=== PATIENT | female | born 1955 | race Caucasian/White ===

== ENCOUNTER 2020-08-17 11:12 | Outpatient (CLI) | payer MEDICARE, SELFPAY ==
--- NOTE | ~2020-08-17 | CT_ITS ---
EXAMINATION: CT abdomen pelvis w con EXAM DATE: 08/17/2020 12:09 INDICATION: Mid to low abdominal pain for 5 days. Constipation. TECHNIQUE: Spiral CT of the abdomen and pelvis was performed following intravenous injection of 100 m L Omnipaque 350. Axial, coronal and sagittal images of the abdomen and pelvis were reviewed. The do se-length product (DLP) for this examination was 1143.61 mGy-cm. The exposure was tailored according to patient size (auto mA exposure control), and iterative reconstruction (ASIR) was used as addition al dose reduction technique. There is no prior study for comparison. FINDINGS: The liver, spleen, adrenal glands and pancreas are unremarkable. Gallbladder is unremarkab le. No biliary obstruction. Portal and splenic veins are patent. Kidneys enhance symmetrically. T here is no hydronephrosis. The uterus is not identified and has likely been surgically resected. D ense metallic artifact obscuring the bladder, from patient's hip replacements. There is no retroperi toneal or pelvic lymphadenopathy. There is mild scattered arteriosclerotic disease. There are no findings to suggest appendicitis. The stomach and small bowel are unremarkable. Modera te amount of ascending and transverse colonic stool, small amount in the other segments. No free in traperitoneal gas. The heart is normal in size. There are no pericardial or pleural effusions. Th e lung bases are unremarkable. There are no osteoblastic or osteolytic lesions identified. Spine sti mulator device, leads at the T9 level. Mild thoracolumbar levoscoliosis. IMPRESSION: 1. Moderate ascending and transverse colonic stool. 2. No acute findings. Reviewed, dictated and finalized at location A.
[2020-08-17 11:37] LABS: Basophils Absolute Auto 0.04 K/mm3 (0.00-0.10); Basophils Percent Auto 0.5 % (0.0-1.0); Eosinophils Absolute Auto 0.06 K/mm3 (0.02-0.50); Eosinophils Percent Auto 0.7 % (1.0-6.0); Hematocrit 42.7 % (35.0-42.0); Hemoglobin 13.4 g/dL (11.7-13.8); Immature Granulocyte Absolute 0.06 K/mm3 (0.00-0.00); Immature Granulocyte Percent A 0.7 % (0.0-0.0); Lymphocytes Absolute Auto 1.84 K/mm3 (1.10-4.50); Lymphocytes Percent Auto 21.9 % (18.0-42.0); Mean Corpuscular HGB Conc 31.4 g/dL (32.0-36.0); Mean Corpuscular Hemoglobin 30.5 pg (27.0-31.0); Mean Corpuscular Volume 97.3 fL (78.0-102.0); Mean Platelet Volume 9.5 fl (9.2-11.8); Monocytes Absolute Auto 0.59 K/mm3 (0.10-0.90); Neutrophils Absolute Auto 5.8 K/mm3 (1.7-7.2); Neutrophils Percent Auto 69.2 % (50.0-70.0); Platelet Count Result 207 K/mm3 (150-420); Red Blood Count 4.39 M/mm3 (4.20-5.40); Red Cell Distribution Width 13.6 % (11.6-14.4); White Blood Count 8.4 K/mm3 (4.8-10.8)
[2020-08-17 11:38] LABS: Add Urine Microscopic? YES; Appearance Urine Clear (Clear); Bilirubin Urine Negative (Negative); Blood Urine Negative (Negative); Color Urine Yellow (Yellow); Glucose Urine UA Negative (Negative); Ketones Urine Negative (Negative); Leukocyte Esterase Ur Trace (Negative); Nitrate Urine Negative (Negative); Protein Urine Negative (Negative); Urobilinogen Urine 0.2 mg/dL (0.2-1.0); pH Urine 6.5 (5.0-8.0)
[2020-08-17 11:45] LABS: Bacteria Urine Trace /hpf; RBC Urine 0-2 /hpf (0-2); Squamous Epithelial Cell Urine Moderate /hpf (Few); WBC Urine 0-3 /hpf (0-3)
[2020-08-17 11:49] LABS: Alanine Aminotransferase 34 U/L (14-59); Albumin Level 3.8 g/dL (3.4-5.0); Alkaline Phosphatase 75 U/L (46-116); Amylase 91 U/L (25-115); Anion Gap 10 mmol/L (8-16); Aspartate Amino Transferase 17 U/L (15-37); Bilirubin,Total 0.3 mg/dL (0.00-1.00); Blood Urea Nitrogen 27 mg/dL (7-18); Calcium 9.1 mg/dL (8.5-10.1); Carbon Dioxide 28 mmol/L (21-32); Chloride 103 mmol/L (98-108); Estimated Glomerular Filt Rate 42; Glucose 93 mg/dL (70-99); Lipase 130 U/L (73-393); Osmolality Calculated 297 mOsm/kg (285-295); Sodium 141 mmol/L (136-145); Total Protein 7.3 g/dL (6.4-8.2)
== END 2020-08-17 11:13 | disposition home or self-care (01) ==
PROVIDERS: PCP Internal Medicine; Visit Provider Internal Medicine
DX: R10.9 Unspecified abdominal pain (principal)
CPT/HCPCS: 36415; 74177; 80053; 81001; 82150; 83690; 85025; Q9967

== ENCOUNTER 2022-01-30 09:38 | Outpatient (CLI) | payer MEDICARE, SELFPAY ==
--- NOTE | ~2022-01-30 | DEXA_ITS ---
Bone Density Report Name: LUDA HAMEED Age: 67 Sex: Female Ethnicity: White Date of : 1955 Indication: postmenopausal; screening for osteoporosis; height loss; prior fracture; hysterectomy; Referring Provider: VIVEK BARKER Study: Bone densitometry was performed. Exam Date: January 30, 2022 Accession number: [id number] Bone Density: Region BMD T-score Z-score Classification AP Spine(L1, L2, L3) 1.285 2.4 4.4 Normal World Health Organization criteria for BMD impression classify patients as: Normal (T-score at or above -1.0), Osteopenia (T-score between -1.0 and -2.5), or Osteoporosis (T-score at or below -2.5). Clinical Information Provided by Patient: Have had a previous hip or vertebral fracture Has had a low trauma fracture Has the following medical conditions: Hysterectomy Patient maximum height was 63 Menopause Age: 28 No regular weight bearing exercise Drinks caffeinated beverages Onset of menses at age 12 Number of children 1 Impression: The patient has normal bone mass. The patient has risk factors, including: previous fracture. Discussion: INCREASED RISK OF FRACTURE DUE TO HISTORY OF FRACTURE. The patient's previous fracture puts the patient at high risk of a future fracture. In untreated patients, the risk of osteoporotic fracture increases approximately two-fold for each 1.0 SD decrease in T-score. Low bone density is not the only risk factor for fracture; also consider factors such as patient's age, frailty or poor health, risk of falling, risk of injury, previous osteoporotic fracture, family history of osteoporosis, cigarette smoking, low body weight, etc. Not everyone with a low trauma fracture has osteoporosis; osteomalacia and other metabolic bone disorders should also be considered. Patients who have osteoporosis should be evaluated for specific diseases and conditions (secondary causes) that may cause or contribute to bone loss and fracture risk. National Osteoporosis Foundation (NOF) recommends pharmacologic intervention for patients with a prior hip or vertebral fracture regardless of BMD T-score. The patient should follow a healthful lifestyle (good nutrition with adequate calcium and vitamin D, and appropriate weight-bearing exercise). Follow-Up: Consider a repeat BMD and Vertebral Fracture Assessment (VFA) exam in 2 years or sooner if medically necessary, to reassess this patient's status. Reported by: Dr. Isaac Galaviz on 01/30/2022 10:05:00 AM. Reviewed, dictated and finalized at location AAlexandra CARTER
== END 2022-01-30 09:39 | disposition home or self-care (01) ==
LOC: CHSIMG 09:40
PROVIDERS: PCP Internal Medicine; Visit Provider Internal Medicine
DX: M81.0 Age-related osteoporosis without current pathological fracture (principal)
CPT/HCPCS: 77080

== ENCOUNTER 2022-05-08 10:11 | Emergency (ER) | payer MEDICARE, SELFPAY ==
--- NOTE | ~2022-05-08 | CT_ITS ---
CT Abdomen and Pelvis with contrast. History: Abdominal pain. Spiral CT of the abdomen and pelvis was performed after the administration of intravenous contrast. 1 00 cc of Omnipaque 350 was administered intravenously without complication. Dose reduction technique was used on this scan by utilizing automated exposure control and iterative reconstruction technique. The dose-length product (DLP) was 1256.10 mGy-cm. COMPARISON: 08/17/2020 Findings: Scans through the lung bases demonstrate mild atelectatic change. The liver, spleen, pancreas, gallbladder, adrenals and kidneys are within normal limits. No evidence of aortic aneurysm. No lymphadenopathy is seen. There is no evidence of bowel obstruction. There is no evidence to suggest acute appendicitis or dive rticulitis. Images through the pelvis are degraded by streak artifact from bilateral hip arthroplasties. Urinary bladder unremarkable. No pelvic mass identified. No ascites is seen. Impression: No significant abnormalities seen. Reviewed, dictated and finalized at [facility]. [employer] Impression: No significant abnormalities seen.
[2022-05-08 12:15] VITALS: BP 157/85; PULSE 80; RESP 18; TEMP 36.6; O2SAT 94
--- NOTE | 2022-05-08 12:41 | ED.ABDPAIN ---
HPI - Abdominal Pain General Chief Complaint: Nausea/Vomiting/Diarrhea Stated Complaint: STOMACH CRAMPS BLOODY STOOL Time Seen by Provider: 05/08/22 12:37 Source: patient Mode of arrival: ambulatory Limitations: no limitations History of Present Illness HPI narrative: 67 year old female presents to the Emergency Department complaining of lower abdominal pain and cramping. Onset 05/05/22. Has had diarrhea intermittently. Denies vomiting. Urinating normal amount. Now having discomfort with urination. No known fever. No history of same. MD elicited complaint: abdominal pain Pertinent past history: none Onset (ago): day(s) (05/05/22) Pain Consistency: intermittent Location: suprapubic Severity: moderate Quality: cramping Radiation: none Exacerbating factors: bowel movement (diarrhea) Relieving factors: nothing Context: denies foreign travel, denies possible food poisoning, denies sick contacts, denies recent antibiotic use, denies recent surgery/procedure, denies recent injury or denies history of similar episodes Associated symptoms: denies other symptoms, nausea, vomiting, fever, chills and dysuria Related Data Patient : No Home Medications Medication Instructions Recorded Confirmed duloxetine 20 mg capsule,delayed 20 mg PO DAILY 05/08/22 05/08/22 release gabapentin 300 mg capsule 900 mg PO TID 05/08/22 05/08/22 levothyroxine 112 mcg tablet 112 mcg PO DAILY 05/08/22 05/08/22 nortriptyline 75 mg capsule 75 mg PO HS 05/08/22 05/08/22 sumatriptan succinate 100 mg tablet 100 mg PO DAILY PRN Headache 05/08/22 05/08/22 verapamil 120 mg tablet,extended 120 mg PO BID 05/08/22 05/08/22 release Allergies Allergy/AdvReac Type Severity Reaction Status Date / Time No Known Allergies Allergy Unverified 06/12/15 09:49 Review of Systems Review of Systems: All systems reviewed & are unremarkable except as noted in HPI and below Constitutional: Constitutional: Reports as per HPI, Reports no additional constitutional complaints, Denies chills, Reports fatigue, Denies fever(s) and Reports weakness Eyes: Eyes: Reports as per HPI and Reports no additional eye complaints ENT: Reports system reviewed and no additional complaints, except as documented, Denies nasal congestion and Denies sore throat Cardiovascular: Cardiovascular: Reports as per HPI, Reports no additional cardiovascular complaints and Denies chest pain Respiratory: Respiratory: Reports as per HPI, Reports no additional respiratory complaints, Denies chest congestion, Denies cough and Denies dyspnea Gastrointestinal: Gastrointestinal: Reports as per HPI, Reports no additional gastrointestinal complaints, Reports bloating and Reports diarrhea Genitourinary: Genitourinary: Reports no additional female genitourinary complaints, Reports as per HPI and Reports dysuria Musculoskeletal: Musculoskeletal: Reports no additional musculoskeletal complaints, Reports as per HPI and Denies joint swelling Integumentary/Breasts: Skin/Breast: Reports system reviewed and no additional complaints, except as docu and Reports as per HPI Neurologic: Reports system reviewed and no additional complaints, except as documented and Reports as per HPI Psychiatric: Psychiatric: Reports no additional psychiatric complaints and Reports as per HPI Endocrine: Endocrine: Reports no additional endocrine complaints and Reports as per HPI Hematologic/Lymphatic: Hematologic/Lymphatic: Reports no additional hematologic/lymphatic complaints and Reports as per HPI Allergic/Immunologic: Allergic/Immunologic: Reports no additional allergic/immunologic complaints and Reports as per HPI Exam Const: General: no acute distress and alert Nutritional Appearance: well nourished Orientation/consciousness: patient oriented x3 Limitations: no limitations HENMT: Head: normal to inspection Ears: external ears normal Face/Nose/Sinus: Normal external nose present Face and sinus: normal facial exam Mouth: Y
[2022-05-08 13:03] LABS: Basophils Absolute Auto 0.04 K/mm3 (0.00-0.10); Basophils Percent Auto 0.6 % (0.0-1.0); Eosinophils Absolute Auto 0.08 K/mm3 (0.02-0.50); Eosinophils Percent Auto 1.1 % (1.0-6.0); Hematocrit 42.4 % (35.0-42.0); Hemoglobin 13.6 g/dL (11.7-13.8); Immature Granulocyte Absolute 0.05 K/mm3 (0.00-0.00); Immature Granulocyte Percent A 0.7 % (0.0-0.0); Lymphocytes Absolute Auto 1.39 K/mm3 (1.10-4.50); Lymphocytes Percent Auto 19.9 % (18.0-42.0); Mean Corpuscular HGB Conc 32.1 g/dL (32.0-36.0); Mean Corpuscular Hemoglobin 30.8 pg (27.0-31.0); Mean Corpuscular Volume 95.9 fL (78.0-102.0); Mean Platelet Volume 9.3 fl (9.2-11.8); Monocytes Absolute Auto 0.68 K/mm3 (0.10-0.90); Monocytes Percent Auto 9.7 % (2.0-11.0); Neutrophils Absolute Auto 4.7 K/mm3 (1.7-7.2); Platelet Count Result 213 K/mm3 (150-420); Red Blood Count 4.42 M/mm3 (4.20-5.40)
[2022-05-08 13:04] LABS: Add Urine Microscopic? YES; Appearance Urine Clear (Clear); Bilirubin Urine Negative (Negative); Blood Urine Trace-Intact (Negative); Color Urine Light Yellow (Yellow); Glucose Urine UA Negative (Negative); Ketones Urine Negative (Negative); Leukocyte Esterase Ur 1+ (Negative); Nitrate Urine Negative (Negative); Protein Urine Negative (Negative); Urobilinogen Urine 0.2 mg/dL (0.2-1.0); pH Urine 5.5 (5.0-8.0)
[2022-05-08] MEDS: SODIUM CHLORIDE 0.9% IV 1,000 ML 999 ML IV CONT (13:17)
[2022-05-08 13:20] LABS: Alanine Aminotransferase 23 U/L (14-59); Albumin Level 3.5 g/dL (3.4-5.0); Alkaline Phosphatase 75 U/L (46-116); Anion Gap 7 mmol/L (8-16); Aspartate Amino Transferase 16 U/L (15-37); Bilirubin,Total 0.3 mg/dL (0.00-1.00); Blood Urea Nitrogen 24 mg/dL (7-18); Calcium 8.8 mg/dL (8.5-10.1); Carbon Dioxide 27 mmol/L (21-32); Chloride 108 mmol/L (98-108); Estimated CRCL calculation 36 ml/min; Estimated Glomerular Filt Rate 36; Glucose 104 mg/dL (70-99); Osmolality Calculated 298 mOsm/kg (285-295); Sodium 142 mmol/L (136-145); Total Protein 6.9 g/dL (6.4-8.2)
[2022-05-08 13:23] LABS: Lactic Acid Reflex 0.8 mmol/L (0.4-2.0)
[2022-05-08 13:28] LABS: Bacteria Urine Trace /hpf; RBC Urine None seen /hpf (0-2); Squamous Epithelial Cell Urine Few /hpf (Few); WBC Urine 0-3 /hpf (0-3)
[2022-05-08 13:40] LABS: Influenza A QL RT-PCR Negative (Negative); Influenza B QL RT-PCR Negative (Negative); SARS-CoV-2 RNA PCR Negative (Negative)
[2022-05-08 13:41] LABS: RSV RNA, RT-PCR Negative (Negative)
[2022-05-08 14:30] VITALS: BP 131/73; PULSE 60; RESP 16; O2SAT 95
[2022-05-08] MEDS: HYDROcodone/acetaminophen (*CRX) 10-325 MG TABLET 1 TAB PO (14:39)
[2022-05-08] MEDS: NITROFURANTOIN MONOHYD MACROCR 100 MG CAP (14:40)
== END 2022-05-08 15:00 | disposition home or self-care (01) ==
PROVIDERS: Emergency Provider Emergency Medicine; PCP Internal Medicine
DX: R10.30 Lower abdominal pain, unspecified (principal); R19.7 Diarrhea, unspecified; Z20.822 Contact with and (suspected) exposure to COVID-19
CPT/HCPCS: 36415; 74177; 80053; 81001; 83605; 85025; 87637; 96360; 99284; A9270; J7030; Q9967

== ENCOUNTER 2024-08-12 13:15 | Outpatient (RCR) | payer MEDICARE, SELFPAY ==
[2024-08-12 13:51] VITALS: BMI 34.1
== END 2024-11-01 09:05 | disposition home or self-care (01) ==
LOC: ANHDMC 13:15
PROVIDERS: PCP Internal Medicine
DX: R73.03 Prediabetes (principal); Z71.3 Dietary counseling and surveillance; R73.9 Hyperglycemia, unspecified
CPT/HCPCS: 97802

== ENCOUNTER 2025-02-13 06:28 | Inpatient (IN) | payer MEDICARE, SELFPAY ==
[2025-02-13] VITALS (31 sets, daily range): BP systolic 111–143; BP diastolic 54–84; PULSE 74–87; RESP 15–20; TEMP 36.2–37; O2SAT 87–99; BMI 32.8
--- NOTE | ~2025-02-13 | XR_ITS ---
XR abdomen/kub 1V INDICATION: nausea REFERENCE: NONE FINDINGS: A supine view of the abdomen is submitted. Thoracic lumbar fusion hardware are noted. Bilateral hip arthroplasties are present. There are moderate stool retention suggestive of constipation. IMPRESSION: Constipation. Reviewed, dictated and finalized at location S. IMPRESSION: Constipation.
--- NOTE | ~2025-02-13 | XR_ITS ---
Examination: XR chest 1V portable Clinical History: fall Comparison: None Technique: Portable AP Findings: Heart size normal. Left basilar atelectasis. No acute bony abnormality. IMPRESSION: 1. Left basilar atelectasis. Contusion not excluded. 2. Otherwise no acute cardiopulmonary findings given portable technique. Reviewed, dictated and finalized at location R.
--- NOTE | ~2025-02-13 | CT_ITS ---
EXAMINATION: CT thoracic lumbar wo con DATE: 02/13/2025 07:22 INDICATION: Back pain. Fall. TECHNIQUE: Computed tomography (CT) of the thoracic and lumbar spine was performed without intravenous contrast. Automated exposure control and iterative reconstruction technique were employed. The dose-length product was 2013.55 mGy-cm. COMPARISON: CT abdomen and pelvis 05/08/2022 FINDINGS: CT THORACIC SPINE: There is mild atelectasis bilaterally. There are airspace and groundglass opacities in left lower lobe with volume loss, consistent with atelectasis versus pneumonia. There is 5 degrees dextrocurvature of thoracic spine. There is 2 mm retrolisthesis of C6 on C7, 2 mm anterolisthesis of C7 on T1, 3 mm anterolisthesis of T2 on T3, and 2 mm anterolisthesis of T10 on T11. There is a compression fracture of T10 with 1/5 loss of height. There are changes of posterior fusion procedure from T10 to S1 and the bilateral sacroiliac joints. There is mildly decreased disc height at multiple thoracic levels. There is multilevel facet joint osteoarthritis, severe in the upper thoracic spine. There is mild neural foraminal stenosis at multiple levels on either side. There is no central canal stenosis. CT LUMBAR SPINE: There is 4 mm retrolisthesis of L2 on L3. Vertebral body heights are normal. There is moderately decreased disc height at L2-L3, mildly decreased disc height at L3-L4 and L4-L5, and severely decreased disc height at L5-S1. There is multilevel facet joint hypertrophy, moderate at multiple levels. On the right, there is mild neural foraminal stenosis at L3-L4 and L4-L5. On the left, there is moderate neural foraminal stenosis at L2-3 and mild neural foraminal stenosis from L3-L4 through L5-S1. There is mild central canal stenosis at L2-L3. IMPRESSION: 1. Age-indeterminate compression fracture of T10, new from 05/08/2022. 2. Mild thoracic spondylosis and severe lumbar spondylosis. 3. Posterior fusion procedure from T10 to the sacrum and iliac bones. 4. Airspace and groundglass opacities in left lung lower lobe with volume loss, consistent with atelectasis versus pneumonia. Reviewed, dictated and finalized at location E.
--- NOTE | ~2025-02-13 | XR_ITS ---
EXAMINATION: XR chest 1V portable COMPARISON: No comparisons available. HISTORY: history of pneumonia, pulmonary embolism FINDINGS: The lungs are clear, no effusion. No pneumothorax. Heart is normal size. Mediastinal and hilar contours are within normal limits. Bony thorax no acute abnormality. Miscellaneous: None Impression: No acute cardiopulmonary abnormality. Reviewed, dictated and finalized at location P. Impression: No acute cardiopulmonary abnormality.
--- NOTE | ~2025-02-13 | XR_ITS ---
EXAMINATION: XR chest 2V, 02/18/2025 10:14 CDT HISTORY: f/u PNA COMPARISON: No comparisons available. Technique: 2 views obtained. Findings: The lungs are clear, no effusion. No pneumothorax. Heart is normal size. Mediastinal and hilar contours are within normal limits. Bony thorax no acute abnormality. Impression: No acute cardiopulmonary abnormality. Reviewed, dictated and finalized at location P. Impression: No acute cardiopulmonary abnormality.
--- NOTE | ~2025-02-13 | CT_ITS ---
EXAMINATION: CT abdomen pelvis wo con DATE: 02/15/2025 09:49 INDICATION: Abdominal distention. Nausea, vomiting and constipation. TECHNIQUE: Computed tomography (CT) of the abdomen and pelvis was performed with 100 mL Omnipaque-350 intravenous contrast. Automated exposure control and iterative reconstruction technique were employed. The dose-length product was 767.35 mGy-cm. COMPARISON: 05/08/2022 FINDINGS: Consolidation and patchy groundglass opacities left lower lobe. Heart size is normal. No pericardial or pleural effusion. Gallbladder is dilated to 4.8 cm in maximal diameter but without evident wall thickening or pericholecystic inflammatory stranding to suggest acute cholecystitis. Liver, spleen, pancreas, bilateral adrenal glands and kidneys are normal. Bowels including the appendix are normal. Bladder is normal. The uterus is not identified and has likely been surgically resected. Bilateral adnexa are unremarkable. No free intraperitoneal gas or fluid. No pathologically enlarged abdominal or pelvic lymphadenopathy. Instrumented posterior spinal fusion with T10-S1 bilateral vertical elicia and pedi jordana screw fixation along with bilateral iliac screws. 15 degrees thoracolumbar levoscoliosis. Bilateral total hip arthroplasties. IMPRESSION: 1. No acute intra-abdominal/pelvic process. 2. Consolidation and patchy groundglass opacities in the left lower lobe which could be due to pneumonia although the region of groundglass opacity also raises possibility of pulmonary infarcts. Reviewed, dictated and finalized at location A. IMPRESSION: 1. No acute intra-abdominal/pelvic process. 2. Consolidation and patchy groundglass opacities in the left lower lobe which could be due to pneumonia although the region of groundglass opacity also raise s possibility of pulmonary infarcts.
--- NOTE | ~2025-02-13 | NM_ITS ---
EXAMINATION: NM lung vent and perfusion DATE: 02/14/2025 10:11 INDICATION: Hypoxia. Recent surgery. TECHNIQUE: 28.5 mCi Tc-99m DTPA aerosol by inhalation and 5 mCi Tc-99m MAA by intravenous route. Scintigraphic images of the chest were obtained. COMPARISON: Chest radiograph dated 02/13/2025 FINDINGS: There is triple matched decreased ventilation and perfusion throughout the left lower lobe with corresponding airspace opacities on the prior radiographs. There is an additional small matched ventilation and perfusion defect at the anterior segment of the right upper lobe without corresponding airspace opacity in the radiographs. No discrete ventilation and perfusion mismatch is identified. IMPRESSION: 1. Nondiagnostic (low or intermediate probability) for pulmonary embolism. Reviewed, dictated and finalized at location A.
--- NOTE | ~2025-02-13 | CT_ITS ---
CT HEAD NON-CONTRAST CT C-SPINE Clinical History: Fall, head injury, AMS, cervical pain, back pain Comparison: None Technique: Unenhanced axial images skull base to vertex. Coronal, sagittal reformats. Axial images thoracic inlet to skull base. Sagittal and coronal reformats. CT images acquired with automatic exposure control for dose reduction DLP: 605 mGy-cm Findings: Head: White matter changes, typically chronic microvascular ischemic disease. Sulci, ventricles: Unremarkable. No intracerebral hemorrhage. No evidence acute territorial infarct. No mass effect, midline shift, intra-/extra-axial fluid collection. Bony calvarium intact. Visualized paranasal sinuses: Clear. Mastoid air cells: Clear. C-spine: No acute fracture. Grade 1 anterolisthesis of C2 on 3, C3 on 4, C4 on 5, C7 on T1. Grade 1 retrolisthesis C6 on 7. Straightening of normal cervical lordosis. Moderate degenerative changes. Ankylosis C5-6. Severe disc disease C6-7. Prevertebral soft tissues within normal limits. Visualized lung apices: Left effusion. Visualized thyroid: Unremarkable. No enlarged cervical nodes. IMPRESSION: HEAD: 1. No acute intracranial findings. C-SPINE: 1. No acute fracture. 2. Degenerative and chronic findings as above. Reviewed, dictated and finalized at location R. IMPRESSION: HEAD: 1. No acute intracranial findings. C-SPINE: 1. No acute fracture. 2. Degenerative and chronic findings as above.
--- NOTE | ~2025-02-13 | US_ITS ---
EXAMINATION: US venous doppler [facility], 02/16/2025 14:11 CDT HISTORY: positive d-dimer, probably PE COMPARISON: None Technique: Quesada-scale and color Doppler images were attempted of the lower saphenofemoral junction, common femoral vein,superficial femoral vein, proximal deep femoral vein, proximal deep femoral vein, popliteal vein and posterior tibial veins. Findings: Deep Venous System:There is thrombus with diminished flow noted in the right peroneal vein, the left common femoral, the left femoral, the left popliteal, the left posterior tibial and the left peroneal veins. Superficial Venous SystemNo superficial thrombophlebitis. Soft tissues: Soft tissues are unremarkable. Impression: Bilateral DVT detailed above Reviewed, dictated and finalized at location P. Impression: Bilateral DVT detailed above
--- OUTSIDE RECORDS SUMMARY | 2025-02-13 06:37 | XMS_ITS | Clinical Summary ---
Author Organization [facility] Address [address] [place] [address] Care Team Providers Care Meat Passer Name Role Phone Isaac Shannon MD Primary Care Provider Gian mancuso Source Comments [facility],non-owned Affiliates and Associated Physician Practices is amultiple site organization consisting of ambulatory clinics and hospital sitesin [place], [place], [place] and [place]. This disclosure is being madepursuant to the Care Everywhere program and may not contain all information available regarding this patient. Last updated 18.[facility] Allergies No known active allergies Medications * Be aware that medications may not be up to date on this document. Alwaysverify current medications with the patient. citalopram (CELEXA) 40 MG tablet Take 40 mg by mouth once daily. Active amitriptyline (ELAVIL) 25 MG tablet Take 25 mg by mouth at bedtime. Active levothyroxine (TIROSINT) 88 MCG capsule Take 88 mcg by mouth daily before breakfast. Active lisinopril (PRINIVIL; ZESTRIL) 10 MG tablet Take 10 mg by mouth once daily. Active metoprolol succinate XL 24hr 100 MG TB24 100 mg, hydrochlorothiazide 12.5 MG CAPS 12.5 mg Take by mouth once daily. Active omeprazole (PRILOSEC) 40 MG capsule Take 40 mg by mouth daily before breakfast. Active SUMAtriptan (IMITREX) 100 MG tablet Take 100 mg by mouth once as needed. Active traMADol (ULTRAM) 50 MG tablet Take 50 mg by mouth every 6 hours as needed. Active Family History Medical History Relation Name Comments Diabetes Brother 2 Cancer Father Cancer Mother Diabetes Mother Hypertension Mother Migraine Mother Stroke Mother Thyroid Disease Sister 2 Relation Name Status Comments Brother 1 Alive Brother 2 Father Mother Sister 1 Alive Sister 2 Social History Tobacco Use Types Packs/Day Years Used Date Smoking Tobacco: Never Alcohol Use Standard Drinks/Week Comments Yes 0 (1 standard drink = 0.6 oz pur e alcohol) Comments Unknown Sex and Gender Information Value Date Recorded Sex Assigned at Not on file Legal Sex Female 10:03 AM CDT Gender Identity Not on file Sexual Orientation Not on file Occupation Industry Job Start Date Job End Date RETIRED Not on file Not on file Not on file Plan of Treatment Health Maintenance Due Date Last Done Comments BONE DENSITY TESTING 1955 COLOGUARD (AGES 45-75) - COL ON CA SCREENING 1955 COLON MONITORING 1955 COLONOSCOPY - COLON CA SCREENING 1955 CT COLONOGRAPHY - COLON CA SCREENING 1955 Colorectal Cancer Screening 1955 FIT - COLON CA SCREENING 1955 FLEX SIG - COLON CA SCREENING 1955 LIPID TESTING 1955 MAMMOGRAM 1955 HEPATITIS C SCREENING 01/15/1971 DTAP/TDAP/TD VACCINES (1 - Tdap) 01/20/1972 PNEUMOCOCCAL VACCINE 50+ (1 of 1 - PCV) 2003 ZOSTER VACCINE (1 of 2) 2003 DEPRESSION SCREENING 05/05/2024 COVID-19 VACCINE (1 - 2023-2 5 season) 2025 INFLUENZA VACCINE (#1) 2025 Respiratory Syncytial Virus (RSV) Vaccine Pt: or over 60 yrs (1 - 1-dose 75+ series) 01/20/2028 HEPATITIS B VACCINE Aged Out No longe r eligible based on patient's age to complete this topic HIB VACCINE Aged Out No longer eligi ble based on patient's age to complete this topic HPV VACCINE Aged Out No longer eligi ble based on patient's age to complete this topic MENINGOCOCCAL (Group B) VACC INE SHARED DECISION-MAKING Aged Out No longer eligibl e based on patient's age to complete this topic MENINGOCOCCAL GROUPS A/C/Y/W VACCINE Aged Out No longer eligible b ased on patient's age to complete this topic Insurance [facility] Care Teams Meat Passer Relationship Specialty Start Date End Date Isaac Shannon MD PCP - General Anesthesiology 07/07/13
--- OUTSIDE RECORDS SUMMARY | 2025-02-13 06:38 | XMS_ITS | Patient Health Record ---
Author Organization [facility] Address [address] [place], [place] [id number] Care Team Providers Care Waiter/Waitress Second Class Name Role Phone Carlos Ramesh Unavailable Unavailable Allergies No Known Allergies Reason For Referral No Information Plan Of Treatment No Information Insurance Providers Payer Name Payer Address Payer Phone Subscriber Number Group Number Insured Name Patient Relationship to Insured Coverage Start Date Coverage End Date [facility] [address] [address] [place] [address] [id number] Evelyn Gil Self - patient is the insured
--- OUTSIDE RECORDS SUMMARY | 2025-02-13 06:38 | XMS_ITS | Clinical Summary ---
Author Organization [facility] Medical Office Building [address] Address [address] [place] [address] Care Team Providers [employer] Name Role Phone Carlos Ramesh MD Primary Care Provider [phone] Shahnaz Simpson NP Unavailable [phone] Allergies Active Allergy Reactions Criticality Noted Date Comments Regadenoson Other (See comments),Anxiety Low 05/21/2021 Reaction: MUSCLE WEAK, ACHE, [place] like having a heart attack Medications SUMAtriptan (IMITREX) 100 mg tablet take 1 tablet by oral route once with fluids as early as possible after the onset of a migraine attack;may repeat after 2 hours if headache returns, not to exceed 200mgin 24hrs 0 0 08/17/19 14 Active levothyroxine (SYNTHROID) 112 mcg tablet Take 1 tablet (112 mcg total) 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 1 kit 01/15/20 25 Active lancets misc Use as directed up to 4 times a day. 100 each 1 01/15/20 25 Active diphenhydrAMINE (BENADRYL) 25 mg capsuleIndicati ons:Urticaria Take 1 tablet/capsule (25 mg total) by mouth every 6 (six) hours as needed for itching 30 capsule 01/15/20 25 Active gabapentin (NEURONTIN) 100 mg capsuleIndicati ons:Pain Take 1 capsule (100 mg total) by mouth every 8 (eight) hours 90 capsule 01/15/20 25 Active multivit vatvfrrd-dxhx-Q A-calcium (THERA-M) 9 mg iron-400 mcg tabletIndicatio ns:Vitamin Deficiency Prevention Take 1 tablet by mouth daily 30 tablet 01/16/20 25 Active polyethylene glycol (MIRALAX) 17 gram/dose bulk powderIndicatio ns:constipation Take 17 g by mouth daily 510 g 01/15/20 25 Active polyvinyl alcohol-povidon e (REFRESH CLASSIC) 1.4-0.6 % dropperetteIndi cations:Dry Eye Administer 1 drop into both eyes 3 (three) times a day 1 each 01/15/20 25 025 Active senna-docusate (PERICOLACE) 8.6-50 mgIndications:c onstipation Take 2 tablets by mouth 2 (two) times a day 120 tablet 01/15/20 25 Active bisacodyL (DULCOLAX) 10 mg suppositoryIndi cations:constip ation Insert 1 suppository (10 mg total) into the rectum daily 30 suppository 01/16/20 25 Active albuterol HFA (PROVENTIL HFA,VENTOLIN HFA,PROAIR HFA) 90 mcg/actuation inhaler Inhale 2 puffs every 4 (four) hours as needed for wheezing 1 each 01/15/20 25 Active acetaminophen (TYLENOL) 325 mg tablet Take 2 tablets (650 mg total) by mouth every 4 (four) hours as needed for pain 60 tablet 01/15/20 25 025 Active heparin 5,000 unit/mL injectionIndica tions:Deep Vein Thrombosis Prevention Inject 1 mL (5,000 Units total) under the skin every 8 (eight) hours Keep taking until patient ambulatory or at the facility provider's discretion. 90 mL 01/15/20 25 025 Active oxyCODONE (ROXICODONE) 5 mg immediate release tablet 01/22/20 Active traMADoL (ULTRAM) 50 mg tablet 01/16/20 Active omeprazole (PriLOSEC) 40 mg capsule 01/15/20 Active Thera-M 19 mg iron- 400 mcg tablet 01/26/20 Active oxyCODONE (ROXICODONE) 5 mg immediate release tabletIndicatio ns:Pain Take 1 tablet (5 mg total) by mouth every 4 (four) hours as needed for pain for up to 7 days 42 tablet 01/15/[address] (PROTONIX) 40 mg EC tabletIndicatio ns:Stress Ulcer Prophylaxis Take 1 tablet (40 mg total) by mouth daily 30 tablet 01/16/20 25 025 Discontinu ed(Patient Reported) Active Problems Problem Noted Date Diagnosed Date Urinary retention 01/14/2025 Assessment & Plan (01/14/2025 2:59 PM CDT): --Tapai removed 01/13 --01/14: trouble with urination over night, bladder scan 1081 mL with straight cath 1225 mL. VC @ 1130, bladder scan 577 mL, pt unable to void. Tapia replaced 01/14. Will need void trial in 7 days (01/21) at facility. Deep vein thrombosis (DVT) of right lower extrem ity 01/14/2025 Assessment & Plan (01/14/2025 4:42 PM CDT): --01/12: pt with increased pain and swelling to LLE. Venous Duplex scan revealed DVT in RLE soleal sinus veins. Negative for DVT in LLE. Per medicine, no treatment needed for DVT. --On heparin 5,000 units Q8h Pyuria 01/11/2025 Assessment & Plan (01/12/2025 10:05 AM CDT): AMS. UA WBC 11-20 (no squamous cells). Asymptomatic other than AMS, now resolved. - Agree with ceftriaxone (01/11- ). Would complete 3 day course. Last dose 01/13. - Urcx 01/10 with no growth to date (final) Assessment & Plan (01/13/2025 2:35 PM CDT): Resolved --UA from 01/10 dirty, will follow urine cx --CTX 2g q24 until culture finalizes --01/10 UA cx shows no growth --Med rec stop CTX on 01/13 Assessment & Plan (01/11/2025 10:54 AM CDT): AMS. UA WBC 11-20 (no squamous cells). Asymptomatic other than AMS, now resolved. - Agree with ceftriaxone (01/11- ). Would complete 3 day course. - Urcx pending Elevated hemoglobin A1c 01/10/2025 Assessment & Plan (01/12/2025 10:05 AM CDT): A1c 6.7 12/22. Agree with slide while inpatient. - Further management recommended with outpatient follow-up with PCP. Assessment & Plan (01/11/2025 8:02 AM CDT): A1c 6.7 12/22. Agree with slide while inpatient. Further management recommended with outpatient follow-up with PCP. Assessment & Plan (01/10/2025 4:02 PM CDT): A1c 6.7 12/22. Agree with slide while inpatient. Further management recommended with outpatient follow-up with PCP. Assessment & Plan (01/14/2025 4:41 PM CDT): --12/22 A1C 6.7 --On SSI TIDWM & HS --01/10 consult ordered to DM educator --DM educator recommended glucometer, test strips and lancets for at home. Will see pt closer to discharge for education. --f/u with PCP 01/14 development educator completed education. Delirium 01/10/2025 Assessment & Plan (01/12/2025 10:05 AM CDT): With waxing and waning mental status, likely metabolic encephalopathy in the setting of acute illness, UTI, polypharmacy, and hospital delirium. Uremic with BUN up to 60's. Not encephalopathic at baseline per primary team. - Mental status much improved, back to baseline. TSH, B12, RPR, HIV, obtained to complete toxic metabolic work up though low suspicion, all within normal limits (mildly elevated TSH with normal fT4). - Hold baclofen, agree with decreasing gabapentin. Minimize sedating medications as much as possible - Manage presumed UTI as above - Continue delirium precautions Daytime principles Optimize patient location and room environment to allow natural light and make sure blinds are open and adequate lighting Frequent orientation Enlist family as able to reorient and bring familiar items from home Address sensory deficits (vision and hearing) Keep occupied as able Provide distracting activities such as music/television/favorite home activities as able Nighttime principles Reschedule meds, lab draws and vitals signs to minimize interruptions to sleep time Keep lights low Ask regarding home nighttime routines and provide familiarity as able Assessment & Plan (01/11/2025 10:54 AM CDT): With waxing and waning mental status, likely metabolic encephalopathy in the setting of acute illness, UTI, polypharmacy, and hospital delirium. Uremic with BUN up to 60's. Not encephalopathic at baseline per primary team. - Mental status much improved, back to baseline. Can obtain TSH, B12, ammonia, RPR, HIV, RVP to complete toxic metabolic work up though low suspicion. - Hold baclofen, agree with decreasing gabapentin. Minimize sedating medications as much as possible - Manage presumed UTI as above - Delirium precautions Daytime principles Optimize patient location and room environment to allow natural light and make sure blinds are open and adequate lighting Frequent orientation Enlist family as able to reorient and bring familiar items from home Address sensory deficits (vision and hearing) Keep occupied as able Provide distracting activities such as music/television/favorite home activities as able Nighttime principles Reschedule meds, lab draws and vitals signs to minimize interruptions to sleep time Keep lights low Ask regarding home nighttime routines and provide familiarity as able Assessment & Plan (01/10/2025 4:02 PM CDT): With waxing and waning mental status, likely metabolic/uremic encephalopathy in the setting of acute illness, precipitating delirium. Mild leukocytosis of 14.4 overnight that has fallen to ~11 this morning. Uremic with BUN up to 60's. Patient also reportedly hard of hearing unilaterally, though on my exam responded to verbal stimuli. CAM confusion assessment method 4/4 on my assessment. Not encephalopathic at baseline per primary team. - Continue treating underlying medical problems as above. - Obtain urinalysis with reflex to microscopic analysis culture to rule out UTI. - Would recommend installing delirium precautions in meantime. Daytime principles Optimize patient location and room environment to allow natural light and make sure blinds are open and adequate lighting Frequent orientation Enlist family as able to reorient and bring familiar items from home Address sensory deficits (vision and hearing) Keep occupied as able Provide distracting activities such as music/television/favorite home activities as able Nighttime principles Reschedule meds, lab draws and vitals signs to minimize interruptions to sleep time Keep lights low Ask regarding home nighttime routines and provide familiarity as able Assessment & Plan (01/14/2025 11:34 AM CDT): Resolved --Waxing and waning mental status --Promote sleep hygiene --01/10 Medicine c/s. Decreased Gabapentin to 100mg TID and held baclofen to see if it helps with AMS --01/14 pt appears to be at baseline mentation Transaminitis 01/10/2025 Assessment & Plan (01/14/2025 4:41 PM CDT): Improving --Likely ischemic and r/t intra-op fluctuations in MAP --AST/ALT: 73/48, 96/65, 205/113, 434/196, 794/441, 926/690, 463/389 --Decreased Tylenol to 650mg q8h --Continue to trend --Daily CBC TIFFANI on CKD 01/10/2025 Assessment & Plan (01/12/2025 10:05 AM CDT): Cr 1.58 on admission (baseline 1.1- 1.4 ). Cr peaked 2.34 01/07 improved to 1.84 on 01/10 after IVF and pRBC transfusions. Cr continues to improve at 1 L bolus 1.89 -> 1.73. Good UOP 2L. FENa 0.7% and BUN:Cr ratio 30 with improvement of creatinine following 1L IVF bolus favors pre-renal etiology. UA +granular casts seen in ATN. Ddx prerenal potentially evolving to ATN in setting of hypoperfusion. Can continue IVF and monitoring as Cr has improved and now remains stable. - Encourage PO intake and supplement intravenous fluids if needed. Patient will likely be able to successfully supplement fluids and nutrition orally given significant improvement of mental status back to her baseline. - CTM Cr and UOP - Avoid nephrotoxic drugs and renally dose medications - Continue to hold losartan and HCTZ in setting of TIFFANI. Can be re-started on outpatient PCP follow-up. - Of note, this may be her new baseline. Recommend repeat BMP 1-2 weeks post discharge and if Cr shows no further improvement, outpatient referral to nephrology would be reasonable. Pt follows with PCP who can follow up. Assessment & Plan (01/11/2025 10:54 AM CDT): Cr 1.58 on admission (baseline 1.1- 1.4 ). Cr peaked 2.34 01/07 improved to 1.84 on 01/10 after IVF and pRBC transfusions. Cr now stable 1.84 -> 1.89. Good UOP 2L. FENa 0.7% and BUN:Cr ratio 30 favors pre-renal etiology. UA +granular casts seen in ATN. Ddx prerenal potentially evolving to ATN in setting of hypoperfusion. Can continue IVF and monitoring as Cr has improved and now remains stable. - 1L bolus NSCl 0.9% over 4 hours - Continue to hold losartan and HCTZ - CTM Cr and UOP - Avoid nephrotoxic drugs and renally dose medications - Of note, this may be her new baseline. Recommend repeat BMP 1-2 weeks post discharge and if Cr shows no further improvement, outpatient referral to nephrology would be reasonable. Pt follows with PCP who can follow up. Assessment & Plan (01/10/2025 4:02 PM CDT): TIFFANI with peak to 2.34 01/07 improving to 1.84 01/10 following 2 units pRBC. - Likely pre-renal in the setting of acute blood loss anemia. - Continue obtaining BMP q12hr. - Continue resuscitation as above. Assessment & Plan (01/14/2025 10:13 AM CDT): Improving --Most likely prerenal from poor profusion with some potential intrinsic damage. --eGFR 01/14 38, baseline 50 --Cr 01/14 1.49, baseline: 1.1-1.2 --Med c/s, ordered urine lytes, most c/w pre renal possible potential intrinsic damage. --01/11 NS Bolus 1L --Avoid nephrotoxins --CTM BMP Postoperative anemia 01/10/2025 Assessment & Plan (01/12/2025 10:05 AM CDT): Her post-operative course was complicated by acute blood loss anemia with associated acute renal failure, requiring 5 units of pRBC 3 units FFP and 1 unit platelets perioperatively. She has since required multiple pRBC postsurgically. Likely post-operative acute blood loss anemia, with small post-operative drain output since operation. - Hemoglobin stable at 8.8 this morning. - Management per primary team Assessment & Plan (01/11/2025 8:02 AM CDT): Her post-operative course was complicated by acute blood loss anemia with associated acute renal failure, requiring 5 units of pRBC 3 units FFP and 1 unit platelets perioperatively. She has since required multiple pRBC postsurgically. Likely post-operative acute blood loss anemia, with small post-operative drain output since operation. - Management per primary team Assessment & Plan (01/10/2025 4:02 PM CDT): Her post-operative course was complicated by acute blood loss anemia with associated acute renal failure, requiring 5 units of pRBC 3 units FFP and 1 unit platelets perioperatively and has since received 2 units pRBC postsurgically. Pre- operative labs 12/22 with HgB of 14.4. At 9 PM night 01/09, Hgb 8.5; at 6 AM this morning, HgB 7.5 (1 point hemoglobin drop overnight), with 1 unit pRBC pending per primary team. Charted post-operative drain output 20 ML in last 24 hours with total drain output during admission of 169 mL. - Likely post-operative acute blood loss anemia, with small post-operative drain output since operation. One-point decrease in hemoglobin in last 12 hours is concerning, with primary team continuing surveillance for ongoing bleeding. - Continue obtaining CBC q12hr, transfusing with goal hemoglobin > 7 g/dL. Assessment & Plan (01/14/2025 11:32 AM CDT): Resolved --Due to OR and drain OP --5U pRBC intra-op --01/08: 2u pRBCs and calcium gluconate, repeat Hgb: 8.8 --01/10: hbg trending down 7.5, 1u pRBCs, repeat Hgb 8.8 --01/14: Hgb 9.2 --daily CBC --No signs of bleeding, will monitor Thrombocytopenia due to blood loss 01/10/2025 Assessment & Plan (01/14/2025 11:34 AM CDT): Resolved --1U plt intra-op --Likely post-operative consumptive thrombocytopenia --01/13: 172 --Daily CBC TIFFANI (acute kidney injury) 01/10/2025 Assessment & Plan (01/10/2025 4:02 PM CDT): TIFFANI with peak to 2.34 01/07 improving to 1.84 01/10 following 2 units pRBC. - Likely pre-renal in the setting of acute blood loss anemia. - Continue obtaining BMP q12hr. - Continue resuscitation as above. Postoperative pain 01/07/2025 Flatback syndrome of lumbar region 01/06/2025 Assessment & Plan (01/12/2025 7:31 AM CDT): Evelyn Gil is a 69-year-old woman with HTN, MOISÉS, CKD (b/l creatinine ~1.1-1.2 eGFR 45-50) who was admitted on 01/06/2025 to the orthopedic spine for a substantial revision thoracic, lumbar, and sacral fusion and decompressive laminectomy ([id number]). Operative course complicated by acute blood loss anemia and acute kidney injury. - Surgical post-operative management per primary team. - Recommend holding baclofen and agree with decreased gabapentin Assessment & Plan (01/11/2025 8:02 AM CDT): Evelyn Gil is a 69-year-old woman with HTN, MOISÉS, CKD (b/l creatinine ~1.1-1.2 eGFR 45-50) who was admitted on 01/06/2025 to the orthopedic spine for a substantial revision thoracic, lumbar, and sacral fusion and decompressive laminectomy ([id number]). Operative course complicated by acute blood loss anemia and acute kidney injury. - Surgical post-operative management per primary team. - Recommend holding baclofen and agree with decreased gabapentin Assessment & Plan (01/10/2025 4:02 PM CDT): Evelyn Gil is a 69-year-old woman with HTN, MOISÉS, CKD (b/l creatinine ~1.1-1.2 eGFR 45-50) who was admitted on 01/06/2025 to the orthopedic spine for a substantial revision thoracic, lumbar, and sacral fusion and decompressive laminectomy ([id number]). Operative course complicated by acute blood loss anemia and acute kidney injury. - Surgical post-operative management per primary team. Assessment & Plan (01/14/2025 4:41 PM CDT): --s/p [id number] fusion and decompressive laminectomy on 01/06, closed with nylon, drains x 1, prevena --Reports improvement in preoperative pain --Post-op x-rays completed 01/14 --No HOB restriction --TLSO when OOB --NO janet lifts --PT/OT recs SNF --Patient will follow up with Dr. Dumont outpatient on 01/24/25 at 1:00 pm & 02/16/25 at 11:[address] Dumont at [facility] S/P lumbar spinal fusion 01/06/2025 Acute on chronic back pain 01/06/2025 Assessment & Plan (01/13/2025 10:55 AM CDT): --Patient not taking any pain medications at home --01/10 Decreased Gabapentin to 100mg TID and held baclofen to see if it helps with AMS --Post-op pain controled on baclofen 5 mg Q8, gabapentin 100 mg Q8, APAP 650 mg Q8, oxycodone 5 mg Q4 PRN Depression 01/06/2025 Assessment & Plan (01/14/2025 11:35 AM CDT): --Stable --Denies taking any medications at home for depression MOISÉS (obstructive sleep apnea) 01/06/2025 Assessment & Plan (01/12/2025 10:05 AM CDT): Patient was unable to use CPAP in setting of altered mental status earlier during admission. Since encephalopathy is improved, would recommend encouraging patient to continue compliance with CPAP tonight. - Start CPAP with home machine if available, if not, patient recommended for CPAP sleep study as an outpatient; can follow up with PCP. Assessment & Plan (01/11/2025 8:02 AM CDT): Patient unable to use CPAP in setting of altered mental status. Once encephalopathy improves, would recommend encouraging patient to continue compliance with CPAP. Assessment & Plan (01/10/2025 4:02 PM CDT): Patient unable to use CPAP in setting of altered mental status. Once encephalopathy improves, would recommend encouraging patient to continue compliance with CPAP. Assessment & Plan (01/14/2025 11:35 AM CDT): --CPAP and PAP non-compliant --Room air maintaining O2 93-95% --Pt refusing to wear BiPAP overnight --Albuterol inhaler q4h prn --Medicine recs Start CPAP with home machine if available, if not, patient recommended for CPAP sleep study as an outpatient; can follow up with PCP. --01/14 O2Sat 94% on room air Migraines 01/06/2025 Assessment & Plan (01/06/2025 4:53 PM CDT): --Takes Topiramate and sumatripitan at home BMI 34.0-34.9,adult 12/29/2024 Flatback syndrome 10/29/2024 Lumbar stenosis with neurogenic claudication 06/ 10/2022 Hypothyroidism 10/08/2022 Assessment & Plan (01/12/2025 10:05 AM CDT): TSH mildly elevated to 4.73, free T4 normal 0.90. Adequate supplementation no current regimen. - Continue home levothyroxine 112 mcg daily. Assessment & Plan (01/11/2025 8:02 AM CDT): Continue home levothyroxine 112 mcg daily. Assessment & Plan (01/10/2025 4:02 PM CDT): Continue home levothyroxine 112 mcg daily. Assessment & Plan (01/06/2025 4:51 PM CDT): --Continue home Synthroid Vitamin D deficiency 10/08/2022 Impaired glucose tolerance 10/08/2022 Seasonal allergies 10/08/2022 Hypertension 10/08/2022 Assessment & Plan (01/12/2025 7:31 AM CDT): - Hold home losartan and HCTZ iso TIFFANI; can be re-started in outpatient setting with PCP follow-up after discharge. Assessment & Plan (01/11/2025 8:02 AM CDT): - Hold home losartan and HCTZ iso TIFFANI Assessment & Plan (01/10/2025 4:02 PM CDT): At home, patient on losartan 100 mg and HCTZ 25 mg. - Continue home medications. Assessment & Plan (01/11/2025 3:17 PM CDT): --Takes Verapamil, Losartan and HCTZ at home --BP Controlled --Medicine recommended to hold losartan and HCTZ d/t TIFFANI and to start hydralazine 25mg TID if needed for BP control while inpatient(SBP goal >160). Ok to restart home medications at discharge. 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 Abnormal mammogram of left breast 01/14/2021 Acute right-sided low back pain 04/15/2019 Overweight 09/01/2015 Meralgia paresthetica 09/01/2015 Migraine without aura and responsive to treatmen t 09/01/2015 Tension headache 09/01/2015 Surgical follow-up care 06/21/2014 Overview (08/08/2016): Aftercare following joint replacement surgery Osteoarthritis 08/16/2013 Overview (08/09/2016): OSTEOARTHROS NOS-PELVIS Encounters Date Type Department Care Team Description 02/02/2025 1:20 PM CDT Office Visit [facility] Orthopaedic Surgery [address] [place] [address] [place] [address] Killian Dumont MD Fusion of spine of lumbar region; Flatback syndrome of lumbar region; Other form of scoliosis of lumbar spine 02/02/2025 12:55 PM CDT - 02/02/2025 11:59 PM CDT Hospital Encounter [facility] [address] [place] [address] Killian Dumont MD Fusion of spine of lumbar region; Flatback syndrome of lumbar region; Other form of scoliosis of lumbar spine Discharge Disposition: Discharge to home or self care 02/02/2025 Telephone [facility] Home Care Services [address] [place] [address] Unknown, Notinfile 01/21/2025 Telephone [facility] [place] [place] Orthopaedic Surgery [address] [place] [id number] Killian Dumont MD 01/12/2025 8:45 AM CDT Ancillary Procedure [facility] Vascular Lab IP [address] [place] [address] 01/06/2025 7:30 AM CDT - 01/06/2025 7:00 PM CDT Surgery [facility] Operating [address] [place] [address] Killian Dumont MD FUSION DECOMPRESSION LAMINECTOMY WITH INSTRUMENTATION - [employer]- Revision instrumented posterior spine fusion [id number]/ilium, L2-L3 laminectomy/foraminot michael, L4-L5, L5-S1 PCO,, autograft, allograft, and bone morphogenetic protein- cut to close 9 hours 01/06/2025 7:29 AM CDT Anesthesia Event [facility] [address] [place] [address] Bobby House MD Montgomery, Andrea J., NP 01/06/2025 5:48 AM CDT - 01/14/2025 6:35 PM CDT Hospital Encounter [address] [address] Killian Dumont MD Postoperative pain (Primary Dx); S/P lumbar spinal fusion; MOISÉS (obstructive sleep apnea); Flatback syndrome of lumbar region [M40.36] Discharge Disposition: Discharge to [facility] 01/05/2025 7:39 AM CDT - 01/05/2025 11:59 PM CDT Hospital Encounter [facility] [address] [place] [address] Killian Dumont MD Flatback syndrome of lumbar region; Other form of scoliosis of lumbar spine Discharge Disposition: Discharge to home or self care 12/30/2024 [facility] [address] [place] [id number] Shannan Wynn RN 12/28/2024 8:15 AM CDT - 12/28/2024 11:59 PM CDT Hospital Encounter [facility] [address] [place] [id number] Fusion of lumbar spine Discharge Disposition: Discharge to home or self care 12/28/2024 8:00 AM CDT - 12/28/2024 11:59 PM CDT Hospital Encounter [facility] [address] [place] [id number] Fusion of spine of lumbar region; Flatback syndrome of lumbar region; Other form of scoliosis of lumbar spine; Lumbar pain Discharge Disposition: Discharge to home or self care 12/27/2024 12:00 PM CDT Clinical Support [facility] [place], [place] [facility] Office Building [address] [place] [phone] Rae Blandon NP Spinal stenosis, lumbar region, with neurogenic claudication (Primary Dx); BMI 34.0-34.9,adult 12/22/2024 1:30 PM CDT Pre-Admission Testing [facility] [address] [place] [id number] Preoperative testing (Primary Dx); Flatback syndrome; Vitamin D deficiency; Other abnormal glucose 12/22/2024 11:00 AM CDT Office Visit [facility] - [place] [place] [facility] [address] [place] [address] Advanced Medicine 6th [place] [address] [place] [address] Killian Dumont MD Fusion of spine of lumbar region (Primary Dx); Flatback syndrome of lumbar region; Other form of scoliosis of lumbar spine 12/22/2024 10:30 AM CDT - 12/22/2024 11:59 PM CDT Hospital Encounter [facility] [address] [place] [address] Killian Dumont MD Fusion of spine of lumbar region; Flatback syndrome of lumbar region; Other form of scoliosis of lumbar spine Discharge Disposition: Discharge to home or self care 12/22/2024 Documentation [facility] - [place] [place] [facility] [address] [place] [address] Office [facility] [address] [place] [phone] Francheska Zavala RN 12/21/2024 Orders Only [facility] - [place] [place] [facility] [address] [place] [address] Office [facility] [address] [place] [phone] Killian Dumont MD Flatback syndrome of lumbar region (Primary Dx); Other form of scoliosis of lumbar spine 12/20/2024 12:15 PM CDT - 12/20/2024 11:59 PM CDT Hospital Encounter [facility] [address] [place] [address] Fusion of spine of lumbar region; Flatback syndrome of lumbar region; Other form of scoliosis of lumbar spine Discharge Disposition: Discharge to home or self care 12/20/2024 12:15 PM CDT - 12/20/2024 11:59 PM CDT Hospital Encounter [facility] [address] [place] [address] Fusion of spine of lumbar region; Flatback syndrome of lumbar region; Other form of scoliosis of lumbar spine Discharge Disposition: Discharge to home or self care 12/20/2024 12:14 PM CDT - 12/20/2024 11:59 PM CDT Hospital Encounter [facility] [address] [place] [address] Fusion of spine of lumbar region; Flatback syndrome of lumbar region; Other form of scoliosis of lumbar spine Discharge Disposition: Discharge to home or self care 12/17/2024 Telephone [facility] [address] [place] [address] Thierry Zuniga from Last 3 Months Surgical History Surgery Date Site/Laterality Comments BACK SURGERY 05/05/2006 - 05/04/2007 Back surgery TONSILLECTOMY 05/05/1972 - 05/04/1973 Tonsillectomy THYROIDECTOMY 05/05/1976 - 05/04/1977 Thyroidectomy HIP ARTHROPLASTY Hip arthroplasty SPINAL FUSION DISCECTOMY COLONOSCOPY TOTAL HIP ARTHROPLASTY BREAST BIOPSY BREAST BIOPSY 01/24/2021 Left FL UPPER GI AIR CONTRAST W KUB 11/06/2021 Bilateral CATARACT EXTRACTION 2019 HYSTERECTOMY 1983 BLADDER SURGERY 1997 & 2016 POSTERIOR FUSION LUMBAR SPINE 09/02/2022 - 10/02/2022 L3-5 CENTRAL LINE PLACEMENT > 5 YEARS 01/05/2025 N/A Medical History Medical History Date Comments Hx Other Medical back pain Hypertension Hypertension Depression Depression Disorder of thyroid Thyroid dise ase Gastroesophageal reflux disease GERD Hx Other Medical Headache, migra ine Hearing loss Gastritis Migraines 1957 Sleep apnea 2018 PONV (postoperative nausea and vomiting) Delayed emergence from gener al anesthesia denies unexpectedly having t o stay overnight or ICU admission Motion sickness Hypothyroidism Obesity Allergic rhinitis Delirium 01/10/2025 Family History Medical History Relation Name Comments Alcohol abuse Father Derik Piña Leukemia Father Derik Piña Cervical cancer Maternal Grandmother Cancer Mother Corie Piña Diabetes Mother Corie Piña Hypertension Mother Corie Wang Stroke Mother Corie Piña cervical vs ovarian Mother Corie Piña Alcohol abuse Other 1 Family history of Alcoholism; Other Other 2 Family history of bells palsy; Cancer Other 3 Family history of Cancer; Diabetes Other 4 Family history of Diabetes mellitus; Hypertension Other 5 Family history of Hypertension; Stroke Other 6 Family history of Stroke; delayed emergence Sister Relation Name Status Comments Father Derik Piña Maternal Grandmother Mother Corie Piña Other 1 Other 2 Other 3 Other 4 Other 5 Other 6 Sister Social History Tobacco Use Types Packs/Day Years Used Date Smoking Tobacco: Never Passive Smoke Exposure: Never Smokeless Tobacco: Never Tobacco Cessation:Counseling Given: Not Answered Alcohol Use Standard Drinks/Week Comments Not Currently 0 (1 standard drink = 0.6 oz pur e alcohol) PHQ-2 Answer Date Recorded PHQ-2 Total Score (If total score is 3 or more points, staff should administer the PHQ-9) 0 10/08/2022 AUDIT-C Answer Date Recorded Q1: How often do you have a drink containing alcohol? Never 01/06/2025 Q2: How many drinks containi ng alcohol do you have on a typical day when you are drinking? Patient does not drink Q3: How often do you have si x or more drinks on one occasion? Never 01/06/2025 Personal Safety Answer Date Recorded Have you ever been in or are you currently in a harmful physical or emotional relationship or is someone making you feel afraid or unsafe? Denies 01/06/2025 Comments No Sex and Gender Information Value Date Recorded Sex Assigned at Not on file Legal Sex Female 3:02 AM [place] STRIP Gender Identity Female 01/01/2021 11:17 AM CDT Sexual Orientation Not on file Occupation Industry Job Start Date Job End Date Self Employed Not on file Not on file Not on file Obstetrics History Last Filed Vital Signs Vital Sign Reading Time Taken Comments Blood Pressure 140/67 01/14/2025 4:30 PM CDT Pulse 62 01/14/2025 4:30 PM CDT Temperature 36.8 C (98.3 F) 01/14/2025 4:30 PM CDT Respiratory Rate 19 01/14/2025 4:30 PM CDT Oxygen Saturation 90% 01/14/2025 4:30 PM CDT Inhaled Oxygen Concentration - - Weight 86.4 kg (190 lb 7.6 oz) 01/07/2025 11:45 AM CDT Height 157.5 cm (5' 2.01) 01/07/2025 11:45 AM C DT Body Mass Index 34.83 01/07/2025 11:45 AM CDT Plan of Treatment Health Maintenance Due Date Last Done Comments Hepatitis C Screening 1955 DTaP/Tdap/Td Vaccine (1 - Tdap) 01/20/1964 Hepatitis B Screening 1971 Zoster Vaccine (2 of 3) 11/28/2014 10/03/2014 Well Visit 65+ 2018 Pneumococcal vaccine 65+ (2 of 2 - PCV) 02/10/2019 02/10/2018 Colon Cancer Screening-Colonoscopy 02/02/2023 02/02/2013 Depression Screening 08/31/2023 08/30/2022 Influenza Vaccine (#1) 2025 , 02/03/2019, 03/13/2018, Additional history exists Breast Cancer Screening-Mammogram 07/15/2025 07/15/2024, 07/15/2023, 02/22/2022 Fall Risk Assessment 01/13/2026 01/13/2025 Osteoporosis Screening-Bone Density Scan 08/27/2026 08/27/2024 Colon Cancer Screening-CT Colonography Discontinued 02/02/2013 Colon Cancer Screening-DNA Stool Discontinued 02/03/20 Colon Cancer Screening-FIT Discontinued 02/02/2013 Colon Cancer Screening-Sigmoidoscopy Discontinued 02/02/2013 Medical Devices Implanted Type Area Valet Manager Device Identifier Shelf Expiration Date Model / Serial / Lot Allosource Canpac Nonpurge Frozen Graft 25cc Bone [id number] - [id number] Implanted:Qty: 1 on 10/08/2022 by Killian Dumont MD at [facility] N/A: Back Allosource 12/21/2026 [id number] / / [id number] Nuvasive Inc Reline 5.5mm Lock Open Tulip Spine Screw Bone Nonsterile [id number] - [id number] Implanted:Qty: 6 on 10/08/2022 by Killian Dumont MD at [facility] N/A: Back Nuvasive Inc [id number] / / Nuvasive Inc Reline-O 6.5mm 45mm Polyaxial Spine 2s Screw Bone Nonsterile [id number] - [id number] Implanted:Qty: 2 on 10/08/2022 by Killian Dumont MD at [facility] N/A: Back Nuvasive Inc [id number] / / Nuvasive Inc Reline-O 7.5mm 45mm Polyaxial Spine 2s Screw Bone Nonsterile [id number] - [id number] Implanted:Qty: 4 on 10/08/2022 by Killian Dumont MD at [facility] N/A: Back Nuvasive Inc [id number] / / Nuvasive Inc Brett Spinal Lordotic Reline 5.5x70mm [place] Chromium [id number] - [id number] Implanted:Qty: 1 on 10/08/2022 by Killian Dumont MD at [facility] N/A: Back Nuvasive Inc [id number] / / Nuvasive Inc Brett Spinal Lordotic Reline 5.5x75mm [place] Chromium [id number] - [id number] Implanted:Qty: 1 on 10/08/2022 by Killian Dumont MD at [facility] N/A: Back Nuvasive Inc [id number] / / Medtronic Inc Screw Spinal Posterior Lumbar Multiaxial Solid Cd Horizon Modulex 5.5/6.0mm Stainless Steel [id number] - [id number] Implanted:Qty: 1 on 01/06/2025 by Killian Dumont MD at [facility] Medtronic Inc [id number] / / Medtronic Inc Screw Spinal Posterior Lumbar Multiaxial Solid Cd Horizon Modulex 5.5/6.0mm Stainless Steel [id number] - [id number] Implanted:Qty: 1 on 01/06/2025 by Killian Dumont MD at [facility] Medtronic Inc 02/16/2029 [id number] / / Medtronic Inc Screw Spinal Posterior Lumbar Multiaxial Solid Cd Horizon Modulex 5.5/6.0mm Stainless Steel [id number] - [id number] Implanted:Qty: 1 on 01/06/2025 by Killian Dumont MD at [facility] Medtronic Inc [id number] / / Medtronic Inc Screw Spinal Posterior Lumbar Multiaxial Solid Cd Horizon Modulex 5.5/6.0mm Mas Stainless Steel [id number] - [id number] Implanted:Qty: 1 on 01/06/2025 by Killian Dumont MD at [facility] Medtronic Inc 09/06/2029 [id number] / / [id number] Medtronic Inc Screw Spinal Posterior Lumbar Multiaxial Solid Cd Horizon Modulex 5.5/6.0mm Mas Stainless Steel [id number] - [id number] Implanted:Qty: 1 on 01/06/2025 by Killian Dumont MD at [facility] Medtronic Inc 09/10/2029 [id number] / / [id number] [employer] Frozen 1-4mm Graft 60ml Bone Cancellous [id number] - [id number] - [id number] Implanted:Qty: 1 on 01/06/2025 by Killian Dumont MD at [facility] [employer] [id number] 07/22/2029 [id number] / [id number] / Medtronic Inc Kit Graft Bone Sponge Xlg Infuse 8cc Granules [id number] - [id number] Implanted:Qty: 2 on 01/06/2025 by Killian Dumont MD at [facility] Medtronic Inc 11/02/2025 [id number] / / Medtronic Inc Unid Exp [id number] 5.5 Cc Brett 4upl [id number] - [id number] Implanted:Qty: 2 on 01/06/2025 by Killian Dumont MD at [facility] Medtronic Inc [id number] / / Medtronic Inc Shank [id number] Mdx Osteogrip 6.5x45 [id number] - [id number] Implanted:Qty: 5 on 01/06/2025 by Killian Dumont MD at [facility] Med[employer]onic Inc [id number] / / Medtronic Inc Screw Spinal 7.5x50mm Cd Horizon Osteogrip Thread Nonstrl [id number] - [id number] Implanted:Qty: 4 on 01/06/2025 by Killian Dumont MD at [facility] [employer]onic Inc [id number] / / Medtronic Inc Shank Mdx Osteogrip 7.5x45mm Nonsterile [id number] - [id number] Implanted:Qty: 2 on 01/06/2025 by Killian Dumont MD at [facility] Medtronic Inc [id number] / / Medtronic Inc 9.5mm 80mm Multiaxial Cannulated Thoracolumbar Screw Bone [id number] - [id number] Implanted:Qty: 1 on 01/06/2025 by Killian Dumont MD at [facility] Medtronic Inc [id number] / / Medtronic Inc 9.5mm 90mm Multiaxial Cannulated Thoracolumbar Screw Bone [id number] - [id number] Implanted:Qty: 1 on 01/06/2025 by Killian Dumont MD at [facility] Medtronic Inc [id number] / / Medtronic Inc Cd Horizon Break Off Spinal Screw Set Titanium Nonsterile 5.5 Mm [id number] - [id number] Implanted:Qty: 2 on 01/06/2025 by Killian Dumont MD at [facility] Medtronic Inc [id number] / / Medtronic Inc Screw Spinal Posterior Lumbar Multiaxial Solid Cd Horizon Modulex 5.5/6.0mm Mas Stainless Steel [id number] - [id number] Implanted:Qty: 1 on 01/06/2025 by Killian Dumont MD at [facility] Medtronic Inc [id number] / / Medtronic Inc Cd Horizon 5.5mm 500mm Line Straight Brett Spinal Titanium [id number] - [id number] Implanted:Qty: 1 on 01/06/2025 by Killian Dumont MD at [facility] Medtronic Inc [id number] / / Medtronic Inc Screw Spinal Biased Multi-Axial Tulips Double Pack Heads Stainless Steel Cd Horizon Modulex Sterile [id number] - [id number] Implanted:Qty: 2 on 01/06/2025 by Killian Dumont MD at [facility] Medtronic Inc [id number] / / Medtronic Inc Screw Spinal 6.5x45mm Multiaxial Drmas Tulip Self-Tapping Locking Titanium Cd Horizon Modulex Sterile [id number] - [id number] Implanted:Qty: 4 on 01/06/2025 by Killian Dumont MD at [facility] Medtronic Inc [id number] / / Medtronic Inc Screw Spinal Pedicle Dual Thread Solid Cd Horizon Modulex 6.5x40mm [id number] - [id number] Implanted:Qty: 5 on 01/06/2025 by Killian Dumont MD at [facility] N/A: Thoracic -Sacral Spine Medtronic Inc [id number] / / Medtronic Inc Screw Spinal Posterior Lumbar Multiaxial Solid Cd Horizon Modulex 5.5/6.0mm Mas Stainless Steel [id number] - [id number] Implanted:Qty: 1 on 01/06/2025 by Killian Dumont MD at [facility] Medtronic Inc 09/06/2029 [id number] / / Medtronic Inc Screw Spinal Posterior Lumbar Multiaxial Solid Cd Horizon Modulex 5.5/6.0mm Stainless Steel [id number] - [id number] Implanted:Qty: 1 on 01/06/2025 by Killian Dumont MD at [facility] Medtronic Inc 11/02/2029 [id number] / / Medtronic Inc Screw Spinal Posterior Lumbar Multiaxial Solid Cd Horizon Modulex 5.5/6.0mm Stainless Steel [id number] - [id number] Implanted:Qty: 1 on 01/06/2025 by Killian Dumont MD at [facility] Medtronic Inc [id number] / / Procedures Procedure Name Priority Date/Time Associated Diagnosis Comments XR SCOLIOSIS AP LAT Schedule Routine, Read Routine (OP Routine) 02/02/2025 1:38 PM CDT Fusion of spine of lumbar region Flatback syndrome of lumbar region Other form of scoliosis of lumbar spine POCT GLUCOSE DEVICE Routine 01/14/2025 5 :40 PM CDT XR SCOLIOSIS AP LAT Pending Discharge 01/14/2025 3:04 PM CDT XR SCOLIOSIS AP LAT Pending Discharge 01/14/2025 12:10 PM CDT POCT GLUCOSE DEVICE Routine 01/14/2025 8 :09 AM CDT EGFR Routine 01/13/2025 8:48 PM CDT PHOSPHORUS Routine 01/13/2025 8:48 PM CDT MAGNESIUM Routine 01/13/2025 8:48 PM CDT COMPREHENSIVE METABOLIC PANEL Routine 01/13/2025 8:48 PM CDT CBC WITHOUT DIFFERENTIAL Routine 01/13/2025 8:48 PM CDT POCT GLUCOSE DEVICE Routine 01/13/2025 8 :36 PM CDT POCT GLUCOSE DEVICE Routine 01/13/2025 5 :12 PM CDT POCT GLUCOSE DEVICE Routine 01/13/2025 12:04 PM CDT POCT GLUCOSE DEVICE Routine 01/13/2025 7 :39 AM CDT POCT GLUCOSE DEVICE Routine 01/12/2025 8 :00 PM CDT EGFR Routine 01/12/2025 7:52 PM CDT PHOSPHORUS Routine 01/12/2025 7:52 PM CDT MAGNESIUM Routine 01/12/2025 7:52 PM CDT COMPREHENSIVE METABOLIC PANEL Routine 01/12/2025 7:52 PM CDT CBC WITHOUT DIFFERENTIAL Routine 01/12/2025 7:52 PM CDT POCT GLUCOSE DEVICE Routine 01/12/2025 4 :07 PM CDT POCT GLUCOSE DEVICE Routine 01/12/2025 12:13 PM CDT US VEIN DUPLEX LOWER EXTREMITY BILATERAL COMPLETE ED Urgent/IP Urgent 01/12/2025 12:01 PM CDT POCT GLUCOSE DEVICE Routine 01/12/2025 8 :37 AM CDT T4, FREE Routine 01/11/2025 9:44 PM CDT EGFR Routine 01/11/2025 9:44 PM CDT PHOSPHORUS Routine 01/11/2025 9:44 PM CDT MAGNESIUM Routine 01/11/2025 9:44 PM CDT COMPREHENSIVE METABOLIC PANEL Routine 01/11/2025 9:44 PM CDT CBC WITHOUT DIFFERENTIAL Routine 01/11/2025 9:44 PM CDT POCT GLUCOSE DEVICE Routine 01/11/2025 9 :43 PM CDT POCT GLUCOSE DEVICE Routine 01/11/2025 5 :10 PM CDT POCT GLUCOSE DEVICE Routine 01/11/2025 12:39 PM CDT VITAMIN B12 Routine 01/11/2025 12:30 PM CDT TSH Routine 01/11/2025 12:30 PM CDT HIV 1/2 ANTIBODY PLUS P24 ANTIGEN Routine 01/11/2025 12:30 PM CDT RPR Routine 01/11/2025 12:30 PM CDT POCT GLUCOSE DEVICE Routine 01/11/2025 7 :14 AM CDT EGFR Routine 01/10/2025 9:35 PM CDT PHOSPHORUS Routine 01/10/2025 9:35 PM CDT MAGNESIUM Routine 01/10/2025 9:35 PM CDT COMPREHENSIVE METABOLIC PANEL Routine 01/10/2025 9:35 PM CDT CBC WITHOUT DIFFERENTIAL Routine 01/10/2025 9:35 PM CDT POCT GLUCOSE DEVICE Routine 01/10/2025 9 :08 PM CDT HEMOGLOBIN AND HEMATOCRIT Routine 01/10/2025 6:44 PM CDT POCT GLUCOSE DEVICE Routine 01/10/2025 3 :59 PM CDT TRANSFUSE RED BLOOD CELLS Timed 01/10/2025 2:40 PM CDT URINALYSIS, MICROSCOPIC ONLY STAT 01/10/2025 12:45 PM CDT ALBUMIN CREATININE RATIO, URINE STAT 01/10/2025 12:45 PM CDT UREA NITROGEN, URINE, RANDOM STAT 01/10/2025 12:45 PM CDT SODIUM, URINE, RANDOM STAT 01/10/2025 12:45 PM CDT URINE CULTURE STAT 01/10/2025 12:45 PM CDT URINALYSIS AND REFLEX TO MICROSCOPIC AND CULTURE STAT 01/10/2025 12:45 PM CDT POCT GLUCOSE DEVICE Routine 01/10/2025 11:35 AM CDT TYPE AND SCREEN Timed 01/10/2025 11:34 AM CDT PREPARE RBC Timed 01/10/2025 10:24 AM CDT POCT GLUCOSE DEVICE Routine 01/10/2025 7 :19 AM CDT EGFR Routine 01/10/2025 6:13 AM CDT APTT Routine 01/10/2025 6:13 AM CDT PROTIME-INR Routine 01/10/2025 6:13 AM CDT BASIC METABOLIC PANEL Routine 01/10/2025 6:13 AM CDT CBC WITHOUT DIFFERENTIAL Routine 01/10/2025 6:13 AM CDT POCT GLUCOSE DEVICE Routine 01/09/2025 9 :10 PM CDT EGFR Routine 01/09/2025 8:45 PM CDT APTT STAT 01/09/2025 8:45 PM CDT PROTIME-INR STAT 01/09/2025 8:45 PM CDT PHOSPHORUS Routine 01/09/2025 8:45 PM CDT MAGNESIUM Routine 01/09/2025 8:45 PM CDT COMPREHENSIVE METABOLIC PANEL Routine 01/09/2025 8:45 PM CDT CBC WITHOUT DIFFERENTIAL Routine 01/09/2025 8:45 PM CDT POCT GLUCOSE DEVICE Routine 01/09/2025 6 :05 PM CDT POCT GLUCOSE DEVICE Routine 01/09/2025 3 :28 PM CDT POCT GLUCOSE DEVICE Routine 01/09/2025 11:13 AM CDT CRITICAL CARE Routine 01/09/2025 10:08 AM CDT Postoperative pain S/P lumbar spinal fusion MOISÉS (obstructive sleep apnea) POCT GLUCOSE DEVICE Routine 01/09/2025 7 :14 AM CDT POCT GLUCOSE DEVICE Routine 01/09/2025 3 :15 AM CDT POCT GLUCOSE DEVICE Routine 01/08/2025 11:16 PM CDT POCT GLUCOSE DEVICE Routine 01/08/2025 10:14 PM CDT CRITICAL CARE Routine 01/08/2025 10:00 PM CDT Postoperative pain EGFR Routine 01/08/2025 9:17 PM CDT PHOSPHORUS Routine 01/08/2025 9:17 PM CDT MAGNESIUM Routine 01/08/2025 9:17 PM CDT COMPREHENSIVE METABOLIC PANEL Routine 01/08/2025 9:17 PM CDT CBC WITHOUT DIFFERENTIAL Routine 01/08/2025 9:17 PM CDT CRITICAL CARE Routine 01/08/2025 5:56 PM CDT Postoperative pain S/P lumbar spinal fusion MOISÉS (obstructive sleep apnea) CREATININE, URINE, RANDOM Routine 01/08/2025 4:31 PM CDT SODIUM, URINE, RANDOM Routine 01/08/2025 4:31 PM CDT POCT GLUCOSE DEVICE Routine 01/08/2025 3 :12 PM CDT HEMOGLOBIN AND HEMATOCRIT Timed 01/08/2025 1:05 PM CDT CALCIUM, IONIZED Timed 01/08/2025 1:02 PM CDT POCT GLUCOSE DEVICE Routine 01/08/2025 11:12 AM CDT TRANSFUSE RED BLOOD CELLS Timed 01/08/2025 9:59 AM CDT POCT GLUCOSE DEVICE Routine 01/08/2025 7 :52 AM CDT APTT STAT 01/08/2025 5:59 AM CDT PROTIME-INR STAT 01/08/2025 5:59 AM CDT EGFR Timed 01/08/2025 5:04 AM CDT BASIC METABOLIC PANEL Timed 01/08/2025 5:04 AM CDT CBC WITHOUT DIFFERENTIAL Timed 01/08/2025 5:04 AM CDT POCT GLUCOSE DEVICE Routine 01/08/2025 3 :14 AM CDT TRANSFUSE RED BLOOD CELLS Timed 01/08/2025 12:50 AM CDT PREPARE RBC STAT 01/08/2025 12:29 AM CDT PREPARE RBC STAT 01/08/2025 12:16 AM CDT POCT GLUCOSE DEVICE Routine 01/07/2025 11:37 PM CDT CRITICAL CARE Routine 01/07/2025 10:50 PM CDT Postoperative pain S/P lumbar spinal fusion EGFR Routine 01/07/2025 8:05 PM CDT PHOSPHORUS Routine 01/07/2025 8:05 PM CDT MAGNESIUM Routine 01/07/2025 8:05 PM CDT COMPREHENSIVE METABOLIC PANEL Routine 01/07/2025 8:05 PM CDT CBC WITHOUT DIFFERENTIAL Routine 01/07/2025 8:05 PM CDT POCT GLUCOSE DEVICE Routine 01/07/2025 7 :20 PM CDT XR CHEST 1 VIEW ED Urgent/IP Urgent 01/07/2025 4:36 PM CDT POCT GLUCOSE DEVICE Routine 01/07/2025 3 :48 PM CDT CBC WITHOUT DIFFERENTIAL Timed 01/07/2025 2:06 PM CDT POCT GLUCOSE DEVICE Routine 01/07/2025 11:51 AM CDT CRITICAL CARE Routine 01/07/2025 11:05 AM CDT Postoperative pain POCT GLUCOSE DEVICE Routine 01/07/2025 8 :25 AM CDT EGFR Timed 01/07/2025 4:05 AM CDT PHOSPHORUS Timed 01/07/2025 4:05 AM CDT MAGNESIUM Timed 01/07/2025 4:05 AM CDT HEPATIC FUNCTION PANEL Timed 01/07/2025 4:05 AM CDT BASIC METABOLIC PANEL Timed 01/07/2025 4:05 AM CDT CBC WITHOUT DIFFERENTIAL Timed 01/07/2025 4:05 AM CDT POCT GLUCOSE DEVICE Routine 01/07/2025 3 :09 AM CDT TRANSFUSE PLATELETS Timed 01/06/2025 11:45 PM CDT POCT GLUCOSE DEVICE Routine 01/06/2025 11:28 PM CDT PREPARE PLATELETS Timed 01/06/2025 11:15 PM CDT XR CHEST 1 VIEW ED Urgent/IP Urgent 01/06/2025 11:12 PM CDT POC BLOOD GAS AND CHEMISTRIES, ARTERIAL Routine 01/06/2025 9:44 PM CDT LIPID PANEL Routine 01/06/2025 9:38 PM CDT IMMATURE PLATELET FRACTION Routine 01/06/2025 9:38 PM CDT EGFR Routine 01/06/2025 9:38 PM CDT PHOSPHORUS Routine 01/06/2025 9:38 PM CDT MAGNESIUM Routine 01/06/2025 9:38 PM CDT APTT Routine 01/06/2025 9:38 PM CDT PROTIME-INR Routine 01/06/2025 9:38 PM CDT HEPATIC FUNCTION PANEL Routine 01/06/2025 9:38 PM CDT BASIC METABOLIC PANEL Routine 01/06/2025 9:38 PM CDT CBC WITHOUT DIFFERENTIAL Routine 01/06/2025 9:38 PM CDT POCT GLUCOSE DEVICE Routine 01/06/2025 9 :34 PM CDT TRANSFUSE PLASMA Timed 01/06/2025 7:46 PM CDT TRANSFUSE RED BLOOD CELLS Timed 01/06/2025 7:24 PM CDT POC BLOOD GAS AND CHEMISTRIES, ARTERIAL Routine 01/06/2025 7:02 PM CDT XR SPINE LUMBAR 2 OR 3 VIEWS IP Routine 01/06/2025 6:10 PM CDT TRANSFUSE RED BLOOD CELLS Timed 01/06/2025 6:04 PM CDT POC BLOOD GAS AND CHEMISTRIES, ARTERIAL Routine 01/06/2025 5:31 PM CDT XR SPINE LUMBAR 2 OR 3 VIEWS IP Routine 01/06/2025 4:58 PM CDT PREPARE PLASMA STAT 01/06/2025 4:54 PM CDT TRANSFUSE RED BLOOD CELLS Timed 01/06/2025 4:51 PM CDT POC BLOOD GAS AND CHEMISTRIES, ARTERIAL Routine 01/06/2025 4:26 PM CDT TRANSFUSE PLASMA Timed 01/06/2025 4:05 PM CDT TRANSFUSE RED BLOOD CELLS Timed 01/06/2025 3:40 PM CDT TRANSFUSE PLASMA Timed 01/06/2025 3:20 PM CDT TRANSFUSE RED BLOOD CELLS Timed 01/06/2025 2:48 PM CDT POC BLOOD GAS AND CHEMISTRIES, ARTERIAL Routine 01/06/2025 2:33 PM CDT FL FLUOROSCOPY < 1 HOUR IP Routine 01/06/2025 2:23 PM CDT POC BLOOD GAS AND CHEMISTRIES, ARTERIAL Routine 01/06/2025 12:31 PM CDT XR SPINE LUMBAR 1 VIEW IP Routine 01/06/2025 11:[address] AN PROCEDURE PLACEHOLDER Routine 01/06/2025 10:[address] AN PROCEDURE PLACEHOLDER Routine 01/06/2025 10:[address] AN PROCEDURE PLACEHOLDER Routine 01/06/2025 10:47 AM CDT PREPARE PLASMA STAT 01/06/2025 9:56 AM CDT PREPARE RBC STAT 01/06/2025 9:[address] AN PROCEDURE PLACEHOLDER Routine 01/06/2025 9:[address] AN ELECTIVE ENDOTRACHEAL AIRWAY Routine 01/06/2025 9:47 AM CDT POC BLOOD GAS AND CHEMISTRIES, ARTERIAL Routine 01/06/2025 9:39 AM CDT BONE GRAFT WITH BONE MORPHOGENIC PROTEIN 01/06/2025 7:35 AM CDT Flatback syndrome Case Notes 01/05@1322- Per Josue via email office needs to edit case - DMF [email or web address]- Per Francheska via email office needs to edit case - DMF [email or web address]- Per Ottoniel via phone call cell saver ID- [id number]- DMF Special Needs Pro-[place] table, cell saver, fluoroscopy, microscope, irrigating bipolar, [place] Pi drill, Medtronic instrumentation, Allosource frozen graft chips, has in Nuvasive Reline to be removedcell saver ID- [id number] SPINAL CORD MONITORING 01/06/2025 7:35 AM CDT Flatback syndrome Case Notes 01/05@1322- Per [facility] via email office needs to edit case - DMF 01/05@1033- Per Francheska via email office needs to edit case - DMF 11/01@1040- Per Ottoniel via phone call cell saver ID- [id number]- [facility] [employer] table, cell saver, fluoroscopy, microscope, irrigating bipolar, [place] Pi drill, [employer] instrumentation, [employer] frozen graft chips, has in Nuvasive Reline to be removedcell saver ID- [id number] OSTEOTOMY POSTERIOR SPINAL 01/06/2025 7:35 AM CDT Flatback syndrome Case Notes 01/05@1322- Per [facility] via email office needs to edit case - DMF 01/05@1033- Per Francheska via email office needs to edit case - DMF 11/01@1040- Per Ottoniel via phone call cell saver ID- [id number]- DMF Special Needs [place] table, cell saver, fluoroscopy, microscope, irrigating bipolar, [place] Pi drill, Medtronic instrumentation, Allosource frozen graft chips, has in Nuvasive Reline to be removedcell saver ID- [id number] REMOVAL HARDWARE SPINE 01/06/2025 7:35 AM CDT Flatback syndrome Case Notes 01/05@1322- Per [facility] via email office needs to edit case - DMF 01/05@1033- Per Francheska via email office needs to edit case - DMF 11/01@1040- Per Ottoniel via phone call cell saver ID- [id number]- DMF Special Needs Pro[place] table, cell saver, fluoroscopy, microscope, irrigating bipolar, [place] Pi drill, Medtronic instrumentation, Allosource frozen graft chips, has in Nuvasive Reline to be removedcell saver ID- [id number] FUSION DECOMPRESSION LAMINECTOMY WITH INSTRUMENTATION - MEDTRONIC SOLERA 01/06/2025 7:35 AM CDT Flatback syndrome Case Notes 01/05@1322- Per Josue via email office needs to edit case - DMF 01/05@1033- Per Francheska via email office needs to edit case - DMF 11/01@1040- Per Ottoniel via phone call cell saver ID- [id number]- DMF Special Needs [place] table, cell saver, fluoroscopy, microscope, irrigating bipolar, Vikas Pi drill, Medtronic instrumentation, Allosource frozen graft chips, has in Nuvasive Reline to be removedcell saver ID- [id number] TYPE AND SCREEN STAT 01/06/2025 6:50 AM CDT PREPARE RBC Timed 01/06/2025 6:17 AM CDT CENTRAL LINE PLACEMENT > 5 YEARS Schedule Routine, Read Routine (OP Routine) 01/05/2025 9:14 AM CDT Flatback syndrome of lumbar region Other form of scoliosis of lumbar spine XR SCOLIOSIS 6 OR MORE VIEWS Schedule Routine, Read Routine (OP Routine) 12/29/2024 11:24 AM CDT Fusion of spine of lumbar region Flatback syndrome of lumbar region Other form of scoliosis of lumbar spine Lumbar pain CT LUMBAR SPINE WO CONTRAST Schedule Routine, Read Routine (OP Routine) 12/29/2024 11:24 AM CDT Fusion of lumbar spine EGFR Routine 12/22/2024 3:33 PM CDT Flatback syndrome DIFFERENTIAL AUTO Routine 12/22/2024 3:3 3 PM CDT Flatback syndrome COMPREHENSIVE METABOLIC PANEL Routine 12/22/2024 3:33 PM CDT Flatback syndrome CBC WITH AUTO DIFFERENTIAL Routine 12/22/2024 3:33 PM CDT Flatback syndrome CRP (ACUTE PHASE) Routine 12/22/2024 3:3 3 PM CDT Flatback syndrome HEMOGLOBIN A1C Routine 12/22/2024 3:33 PM CDT Flatback syndrome Other abnormal glucose VITAMIN D 25 HYDROXY Routine 12/22/2024 3:33 PM CDT Flatback syndrome Vitamin D deficiency ERYTHROCYTE SEDIMENTATION RATE Routine 12/22/2024 3:33 PM CDT Flatback syndrome NICOTINE METABOLITE SCREEN, URINE Routine 12/22/2024 3:33 PM CDT Flatback syndrome TYPE AND SCREEN 14 DAY Routine 12/22/2024 3:33 PM CDT Preoperative testing URINALYSIS AND REFLEX TO MICROSCOPIC AND CULTURE Routine 12/22/2024 3:33 PM CDT Flatback syndrome XR SCOLIOSIS 4 OR 5 VW Schedule Routine, Read Routine (OP Routine) 12/22/2024 11:50 AM CDT Fusion of spine of lumbar region Flatback syndrome of lumbar region Other form of scoliosis of lumbar spine MRI LUMBAR SPINE WO CONTRAST Schedule Routine, Read Routine (OP Routine) 12/20/2024 2:04 PM CDT Fusion of spine of lumbar region Flatback syndrome of lumbar region Other form of scoliosis of lumbar spine MRI THORACIC SPINE WO CONTRAST Schedule Routine, Read Routine (OP Routine) 12/20/2024 1:53 PM CDT Fusion of spine of lumbar region Flatback syndrome of lumbar region Other form of scoliosis of lumbar spine CT LUMBAR SPINE WO CONTRAST Schedule Routine, Read Routine (OP Routine) 12/20/2024 12:42 PM CDT Fusion of spine of lumbar region Flatback syndrome of lumbar region Other form of scoliosis of lumbar spine DEXA TBS AXIAL SKELETON BONE DENSITY 1 OR MORE SITES Schedule Routine, Read Routine (OP Routine) 08/27/2024 2:37 PM CDT Flatback syndrome of lumbar region Other form of scoliosis of lumbar spine Other specified disorders of bone density and structure, multiple sites SCREENING MAMMOGRAM BILATERAL W MED Schedule Routine, Read Routine (OP Routine) 07/15/2024 12:32 PM CDT Screening mammogram, encounter for COLONOSCOPY 02/02/2013 12:00 AM CDT from Last 3 Months or Most Recently Relevant to Health Maintenance Results * XR Scoliosis AP LAT (02/02/2025 1:38 PM CDT) Anatomical Region Laterality Modality Spine N/A Computed Radiogr aphy 02/02/2025 3:06 PM CDT Impressions 02/02/2025 3:06 PM CDT 1. Unchanged revision posterior instrumented fusion from T10 through the pelvis with neutral coronal and sagittal balance. Electronically signed by: Javid Hernandez MD Narrative 02/02/2025 3:06 PM CDT EXAMINATION: XR SCOLIOSIS AP AND LATERAL HISTORY: back pain COMPARISON: 01/14/2025 FINDINGS: Posterior instrumented fusion from T10 through the pelvis. Hardware is intact. Partially imaged bilateral hip arthroplasties. No coronal imbalance. Mild left superior pelvic obliquity on the sitting views. Sagittal balance is normal. Procedure Note Javid Hernandez MD - 02/02/2025 EXAMINATION: XR SCOLIOSIS AP AND LATERAL HISTORY: back pain COMPARISON: 01/14/2025 FINDINGS: Posterior instrumented fusion from T10 through the pelvis. Hardware is intact. Partially imaged bilateral hip arthroplasties. No coronal imbalance. Mild left superior pelvic obliquity on the sitting views. Sagittal balance is normal. IMPRESSION: 1. Unchanged revision posterior instrumented fusion from T10 through the pelvis with neutral coronal and sagittal balance. Electronically signed by: Javid Hernandez MD us Killian Dumont MD IMG XR PROCEDURES Final Re sult * POCT glucose (01/14/2025 5:40 PM CDT) Glucose, POC 138 70 - 199 mg/dL Blood 01/14/2025 5:40 PM CDT 01/14/2025 5:40 PM CDT us Killian Dumont MD LAB POCT ORDERABLES - MATEUS CE Final Result [facility] Department [place] [address] * XR Scoliosis Ap and Lateral (01/14/2025 3:04 PM CDT) Anatomical Region Laterality Modality Spine N/A Computed Radiogr aphy 01/14/2025 4:50 PM CDT Impressions 01/14/2025 4:50 PM CDT 1. Revision posterior and cemented spinal fusion from T10 to the pelvis Electronically signed by: Jan Mathew MD Narrative 01/14/2025 4:50 PM CDT EXAMINATION: XR SCOLIOSIS AP AND LATERAL HISTORY: Spinal fusion FINDINGS: Stitched, supine frontal and lateral radiographs of the spine are submitted for interpretation with comparison made to earlier radiographs from the same day and the seated position. There is revision posterior instrumented spinal fusion from T10 to the sacrum and bilateral iliac bones. Instrumentation appears intact. There are bilateral hip arthroplasties partially visualized. Procedure Note Anne Marie Mathew MD - 01/14/2025 EXAMINATION: XR SCOLIOSIS AP AND LATERAL HISTORY: Spinal fusion FINDINGS: Stitched, supine frontal and lateral radiographs of the spine are submitted for interpretation with comparison made to earlier radiographs from the same day and the seated position. There is revision posterior instrumented spinal fusion from T10 to the sacrum and bilateral iliac bones. Instrumentation appears intact. There are bilateral hip arthroplasties partially visualized. IMPRESSION: 1. Revision posterior and cemented spinal fusion from T10 to the pelvis Electronically signed by: Jan Mathew MD us Goyo Gallo ENVIRONMENTAL SERVICES ATTENDANT IMG XR PROCEDURES Fi nal Result * XR Scoliosis Ap and Lateral (01/14/2025 12:10 PM CDT) Anatomical Region Laterality Modality Spine N/A Computed Radiogr aphy 01/14/2025 3:21 PM CDT Impressions 01/14/2025 5:25 PM CDT Interval revision of the posterior instrumented spinal fusion from T10 to the pelvis. Dictated by: Any Rosado M.D. The radiology attending physician has personally reviewed this study, and had reviewed and/or edited this written report and agrees with it. Electronically signed by: Jan Mathew MD Narrative 01/14/2025 5:25 PM CDT EXAMINATION: XR SCOLIOSIS AP AND LATERAL HISTORY: Postoperative COMPARISON: 01/06/2025 FINDINGS: 5 radiographs of the spine were submitted for interpretation. The patient is seated for this examination. The caudal portion of the instrumentation is not completely profiled on the AP view. The lateral radiographs are limited by patient position and technique. Interval revision of the posterior instrumented spinal fusion from T10 to the pelvis. There is anterolisthesis of C3 on C4 and C4 on C5. Procedure Note Anne Marie Mathew MD - 01/14/2025 EXAMINATION: XR SCOLIOSIS AP AND LATERAL HISTORY: Postoperative COMPARISON: 01/06/2025 FINDINGS: 5 radiographs of the spine were submitted for interpretation. The patient is seated for this examination. The caudal portion of the instrumentation is not completely profiled on the AP view. The lateral radiographs are limited by patient position and technique. Interval revision of the posterior instrumented spinal fusion from T10 to the pelvis. There is anterolisthesis of C3 on C4 and C4 on C5. IMPRESSION: Interval revision of the posterior instrumented spinal fusion from T10 to the pelvis. Dictated by: Any Rosado M.D. The radiology attending physician has personally reviewed this study, and had reviewed and/or edited this written report and agrees with it. Electronically signed by: Jan Mathew MD Goyo Gallo ENVIRONMENTAL SERVICES ATTENDANT IMG XR PROCEDURES Fi nal Result * POCT glucose (01/14/2025 8:09 AM CDT) Glucose, POC 111 70 - 199 mg/dL Blood 01/14/2025 8:09 AM CDT 01/14/2025 8:09 AM CDT Killian Dumont MD LAB POCT ORDERABLES - MATEUS CE Final Result Performing Organization Address [facility] Co de Phone Number [facility] Department [place] [address] * (ABNORMAL) eGFR (01/13/2025 8:48 PM CDT) Pathologist [facility] eGFR 38(L) >=60 mL/min/1. 73 m2 Comment: Interpretive Data Reference Interval Normal >/= 90 mL/min/1.73m2 Mildly decreased* 60 - 89 mL/min/1.73m2 Mildly to moderately decreased 45 - 59 mL/min/1.73m2 Moderately to severely decreased 30 - 44 mL/min/1.73m2 Severely decreased 15 - 29 mL/min/1.73m2 Kidney Failure < 15 mL/min/1.73m2 *Relative to young adult level Estimated glomerular filtration rate is determined by the 2020 CKD-EPI equation recommended by the National Kidney Foundation (A Unifying Approach to GFR Estimation: Recommendations of the NKF-ASK Task Force on Reassessing the Inclusion of Race in Diagnosing Kidney Disease, JASN 2020). The CKD-EPI equation should not be used for patients with unstable renal function and has not been validated in children and those over 70. Current interpretive data was last reviewed 2021. Blood 01/13/2025 8:48 PM CDT 01/13/2025 9:28 PM CDT us Killian Dumont MD LAB BLOOD ORDERABLES Final Result Performing Organization Address [facility] Co de Phone Number [facility] Department [place] [address] * (ABNORMAL) CBC without differential (01/13/2025 8:48 PM CDT) [facility] WBC 13.46(H) 3.80 - 9.90 K/cumm Hgb 9.2(L) 11.9 - 15.5 g/dL [facility] Hct 28.1(L) 35.6 - 45.5 % [facility] Plt 172 150 - 400 K/cumm [facility] MPV 9.0(L) 9.1 - 12.[address] [facility] RBC 3.11(L) 3.90 - 5.20 M/cumm [facility] MCV 90.4 81.3 - 96.[address] [facility] MCH 29.6 27.1 - 33.[address] [facility] MCHC 32.7 32.3 - 35.7 g/dL [facility] RDW CV 17.4(H) 11.1 - 14.9 % [facility] RDW SD 55.6(H) 35.7 - 48.[address] [facility] NRBC abs 0.03(H) 0.00 - 0.01 K/cumm [facility] Blood 01/13/2025 8:48 PM CDT 01/13/2025 9:28 PM CDT Killian Dumont MD LAB BLOOD ORDERABLES Final Result Performing Organization Address [facility] Co de Phone Number [facility] Department [place] [address] * (ABNORMAL) Phosphorus (01/13/2025 8:48 PM CDT) Pathologist [facility] Phosphorus, pl 2.2(L) 2.3 - 4.5 mg/dL Blood 01/13/2025 8:48 PM CDT 01/13/2025 9:28 PM CDT Killian Dumont MD LAB BLOOD ORDERABLES Final Result Performing Organization Address City/State/[facility] Co de Phone Number [facility] Department [place] [address] * (ABNORMAL) Magnesium (01/13/2025 8:48 PM CDT) Pathologist [facility] Magnesium 2.6(H) 1.4 - 2.5 mg/dL Blood 01/13/2025 8:48 PM CDT 01/13/2025 9:28 PM CDT Killian Dumont MD LAB BLOOD ORDERABLES Final Result [facility] Department [place] [address] * (ABNORMAL) Comprehensive metabolic panel (01/13/2025 8:48 PM CDT) Sodium 136 135 - 145 mmol/L Potassium, pl 4.4 3.3 - 4.9 mmol/L [facility] Chloride 104 97 - 110 mmol/L [facility] CO2 27 22 - 32 mmol/L [facility] Anion gap 5 2 - 15 mmol/L [facility] BUN 35(H) 6 - 25 mg/dL [facility] Creatinine 1.48(H) 0.60 - 1.10 mg/dL [facility] Glucose 124 70 - 199 mg/dL [facility] Comment: Interpretive Data Fasting glucose >/= 126 mg/dl is diagnostic for diabetes. Fasting is defined as no caloric intake for at least 8 hours. Fasting glucose between 100 mg/dl to 125 mg/dl is diagnostic of prediabetes. In a patient with classic symptoms of hyperglycemia or hyperglycemic crisis, a random glucose >/= 200 mg/dl is diagnostic for diabetes. In the absence of unequivocal hyperglycemia, results should be confirmed by repeat testing. The classification and Diagnosis of Diabetes Diabetes Care 2021; 46: S19-S40. Current interpretive data was last revised 2022. Calcium 7.3(L) 8.5 - 10.3 mg/dL [facility] Bilirubin, total 0.4 0.1 - 1.2 mg/dL [facility] Protein, pl 5.8(L) 6.5 - 8.5 g/dL [facility] Albumin 2.9(L) 3.5 - 5.0 g/dL [facility] Alk phos 95 40 - 130 Units/L [facility] ALT 48(H) 7 - 45 Units/L [facility] AST 73(H) 10 - 45 Units/L [facility] Blood 01/13/2025 8:48 PM CDT 01/13/2025 9:28 PM CDT Killian Dumont MD LAB BLOOD ORDERABLES Final Result Performing Organization Address City/[facility]/ZIP Co de Phone Number [facility] [place] [address] * POCT glucose (01/13/2025 8:36 PM CDT) Glucose, POC 135 70 - 199 mg/dL Blood 01/13/2025 8:36 PM CDT 01/13/2025 8:36 PM CDT Killian Dumont MD LAB POCT ORDERABLES - MATEUS CE Final Result Performing Organization Address [facility] Co de Phone Number [facility] [place] [address] * POCT glucose (01/13/2025 5:12 PM CDT) Glucose, POC 103 70 - 199 mg/dL Blood 01/13/2025 5:12 PM CDT 01/13/2025 5:12 PM CDT Killian Dumont MD LAB POCT ORDERABLES - MATEUS CE Final Result Performing Organization Address City/[facility]/ZIP Co de Phone Number [facility] [place] [address] * POCT glucose (01/13/2025 12:04 PM CDT) Glucose, POC 119 70 - 199 mg/dL Blood 01/13/2025 12:0 4 PM CDT 01/13/2025 12:04 PM CDT Killian Dumont MD LAB POCT ORDERABLES - MATEUS CE Final Result Performing Organization Address City/[facility]/ZIP Co de Phone Number [facility] [place] [address] * POCT glucose (01/13/2025 7:39 AM CDT) Glucose, POC 174 70 - 199 mg/dL Blood 01/13/2025 7:39 AM CDT 01/13/2025 7:39 AM CDT Killian Dumont MD LAB POCT ORDERABLES - MATEUS CE Final Result Performing Organization Address [facility] de Phone Number [facility] Department [place] [address] * POCT glucose (01/12/2025 8:00 PM CDT) Glucose, POC 171 70 - 199 mg/dL Blood 01/12/2025 8:00 PM CDT 01/12/2025 8:00 PM CDT Killian Dumont MD LAB POCT ORDERABLES - MATEUS CE Final Result Performing Organization Address [facility] de Phone Number [facility] [place] [address] * (ABNORMAL) eGFR (01/12/2025 7:52 PM CDT) eGFR 35(L) >=60 mL/min/1. 73 m2 Comment: Interpretive Data Reference Interval Normal >/= 90 mL/min/1.73m2 Mildly decreased* 60 - 89 mL/min/1.73m2 Mildly to moderately decreased 45 - 59 mL/min/1.73m2 Moderately to severely decreased 30 - 44 mL/min/1.73m2 Severely decreased 15 - 29 mL/min/1.73m2 Kidney Failure < 15 mL/min/1.73m2 *Relative to young adult level Estimated glomerular filtration rate is determined by the 2020 CKD-EPI equation recommended by the National Kidney Foundation (A Unifying Approach to GFR Estimation: Recommendations of the NKF-ASK Task Force on Reassessing the Inclusion of Race in Diagnosing Kidney Disease, JASN 2020). The CKD-EPI equation should not be used for patients with unstable renal function and has not been validated in children and those over 70. Current interpretive data was last reviewed 2021. Blood 01/12/2025 7:52 PM CDT 01/12/2025 8:32 PM CDT Killian Dumont MD LAB BLOOD ORDERABLES Final Result Performing Organization Address City/[facility]/ZIP Co de Phone Number [facility] [place] [address] * (ABNORMAL) CBC without differential (01/12/2025 7:52 PM CDT) WBC 11.49(H) 3.80 - 9.90 K/cumm Hgb 9.0(L) 11.9 - 15.5 g/dL [facility] Hct 27.8(L) 35.6 - 45.5 % [facility] Plt 142(L) 150 - 400 K/cumm [facility] MPV 10.5 9.1 - 12.[address] [facility] RBC 3.07(L) 3.90 - 5.20 M/cumm [facility] MCV 90.6 81.3 - 96.[address] [facility] MCH 29.3 27.1 - 33.[address] [facility] MCHC 32.4 32.3 - 35.7 g/dL [facility] RDW CV 17.1(H) 11.1 - 14.9 % [facility] RDW SD 55.0(H) 35.7 - 48.[address] [facility] NRBC abs 0.03(H) 0.00 - 0.01 K/cumm [facility] Blood 01/12/2025 7:52 PM CDT 01/12/2025 8:32 PM CDT Killian Dumont MD LAB BLOOD ORDERABLES Final Result Performing Organization Address City/[facility]/ZIP Co de Phone Number [facility] [place] [address] * Phosphorus (01/12/2025 7:52 PM CDT) [facility] Phosphorus, pl 2.6 2.3 - 4.5 mg/dL Blood 01/12/2025 7:52 PM CDT 01/12/2025 8:32 PM CDT Killian Dumont MD LAB BLOOD ORDERABLES Final Result [facility] [place] [address] * (ABNORMAL) Magnesium (01/12/2025 7:52 PM CDT) [facility] Magnesium 2.8(H) 1.4 - 2.5 mg/dL Blood 01/12/2025 7:52 PM CDT 01/12/2025 8:32 PM CDT Killian Dumont MD LAB BLOOD ORDERABLES Final Result Performing Organization Address City/[facility]/[place] [address] * (ABNORMAL) Comprehensive metabolic panel (01/12/2025 7:52 PM CDT) [facility] Sodium 137 135 - 145 mmol/L Potassium, pl 4.1 3.3 - 4.9 mmol/L [facility] Chloride 105 97 - 110 mmol/L [facility] CO2 25 22 - 32 mmol/L [facility] Anion gap 7 2 - 15 mmol/L [facility] BUN 42(H) 6 - 25 mg/dL [facility] Creatinine 1.59(H) 0.60 - 1.10 mg/dL [facility] Glucose 155 70 - 199 mg/dL [facility] Comment: Interpretive Data Fasting glucose >/= 126 mg/dl is diagnostic for diabetes. Fasting is defined as no caloric intake for at least 8 hours. Fasting glucose between 100 mg/dl to 125 mg/dl is diagnostic of prediabetes. In a patient with classic symptoms of hyperglycemia or hyperglycemic crisis, a random glucose >/= 200 mg/dl is diagnostic for diabetes. In the absence of unequivocal hyperglycemia, results should be confirmed by repeat testing. The classification and Diagnosis of Diabetes Diabetes Care 2021; 46: S19-S40. Current interpretive data was last revised 2022. Calcium 7.2(L) 8.5 - 10.3 mg/dL [facility] Bilirubin, total 0.3 0.1 - 1.2 mg/dL [facility] Protein, pl 5.3(L) 6.5 - 8.5 g/dL [facility] Albumin 2.6(L) 3.5 - 5.0 g/dL [facility] Alk phos 91 40 - 130 Units/L [facility] ALT 64(H) 7 - 45 Units/L [facility] AST 70(H) 10 - 45 Units/L [facility] Blood 01/12/2025 7:52 PM CDT 01/12/2025 8:32 PM CDT Killian Dumont MD LAB BLOOD ORDERABLES Final Result [facility] [place] [address] * POCT glucose (01/12/2025 4:07 PM CDT) Glucose, POC 152 70 - 199 mg/dL Blood 01/12/2025 4:07 PM CDT 01/12/2025 4:07 PM CDT Killian Dumont MD LAB POCT ORDERABLES - MATEUS CE Final Result [facility] [place] [address] * POCT glucose (01/12/2025 12:13 PM CDT) Glucose, POC 162 70 - 199 mg/dL Blood 01/12/2025 12:1 3 PM CDT 01/12/2025 12:13 PM CDT us Killian Dumont MD LAB POCT ORDERABLES - MATEUS CE Final Result [facility] Department of Laboratories [place] [id number] * US Vein Duplex Lower Extremity Bilateral Complete (01/12/2025 12:01 PM CDT) Anatomical Region Laterality Modality Vascular Bilateral Ultrasound 01/12/2025 10:2 3 AM CDT Narrative 01/12/2025 4:45 PM CDT [facility] [employer] [facility] - Department of Vascular Surgery, Vascular Laboratory [address] [place] [id number] Lower Extremity Venous Ultrasound Report Patient Name: EVELYN GIL : 1955 (69y 11m) Study Date: 01/12/2025 10:23:13 AM Sex: F Tech: Location: [id number] Ref Provider: INGA RUSS Quality: Adequate Order Provider: INGA RUSS PROCEDURES: Vascular Report: Venous Duplex imaging was performed bilaterally in the lower extremities. The common femoral, femoral, popliteal, posterior tibial, peroneal veins were evaluated for patency, spontaneity and phasicity with Doppler, compression and augmentation maneuvers. Great saphenous vein proximal at the junction was evaluated with compression maneuvers. INDICATIONS: Pain swelling - FINDINGS: Performing Stave Inspector: Noble SOLORIO, RVT. Right: Duplex scan reveals dilated vein with echogenic, intraluminal, non-compressible material consistent with acute deep vein thrombosis in the right lower extremity. Deep veins involved include the right soleal sinus veins. All other evaluated veins on the right are patent. No evidence of superficial vein thrombus on the right. Left: Venous Doppler signals in the left lower extremity are within normal limits for spontaneity and phasicity and respond normally to augmentation maneuvers. No evidence of deep vein thrombus by duplex, proximal to the calf. No evidence of superficial vein thrombus on the left. Provider Notification: Results called on the above date to Dr. Riley Reyes at 11:58 on 01/12/2025. CONCLUSIONS: 1. There is acute deep vein thrombosis involving vein(s) as noted above in the right lower extremity. 2. There is no evidence of acute deep vein thrombosis on the left. Noninvasive venous studies cannot rule out isolated calf vein obstruction. HISTORY: Evelyn Gil is a 69-year-old woman with HTN, MOISÉS, CKD (b/l creatinine ~1.1-1.2 eGFR 45-50) who was admitted on 01/06/2025 to the orthopedic spine for a substantial revision thoracic, lumbar, and sacral fusion and decompressive laminectomy ([id number]). Operative course complicated by acute blood loss anemia and acute kidney injury. PREVIOUS STUDIES: No previous studies for comparison. DISCLAIMER: The study images and the final report will be retained in the patient chart by the Vascular Laboratory for the legally required time period. This chart constitutes the legal record of any testing performed. ATTESTATION: I have reviewed and interpreted the pertinent images and measurements of this study. I attest to the conclusions in the final report that is provided above. Electronically Signed By: Bonilla Serrano MD FACS 01/12/2025 4:04:55 PM CDT Procedure Note Bonilla Serrano MD - 01/12/2025 [facility] - Department of Vascular Surgery,Vascular Laboratory [address] [place] [address] Lower Extremity Venous Ultrasound Report Patient Name: EVELYN GIL : 1955 (69y 11m) Study Date: 01/12/2025 10:23:13 AM Sex: F Tech: Location: [id number] Ref Provider: INGA RUSS Quality: Adequate Order Provider: INGA RUSS PROCEDURES: Vascular Report: Venous Duplex imaging was performed bilaterally in the lower extremities.The common femoral, femoral, popliteal, posterior tibial, peroneal veins wereevaluated for patency, spontaneity and phasicity with Doppler, compression and augmentationmaneuvers. Great saphenous vein proximal at the junction was evaluated with compressionmaneuvers. INDICATIONS: Pain swelling - FINDINGS: Performing Stave Inspector: Noble SOLORIO RVT. Right: Duplex scan reveals dilated vein with echogenic, intraluminal,non-compressible material consistent with acute deep vein thrombosis in the right lower extremity.Deep veins involved include the right soleal sinus veins. All other evaluated veinson the right are patent. No evidence of superficial vein thrombus on the right. Left: Venous Doppler signals in the left lower extremity are within normallimits for spontaneity and phasicity and respond normally to augmentation maneuvers.No evidence of deep vein thrombus by duplex, proximal to the calf. No evidence ofsuperficial vein thrombus on the left. Provider Notification: Results called on the above date to Dr. Riley Reyes at 11:58 on01/12/2025. CONCLUSIONS: 1. There is acute deep vein thrombosis involving vein(s) as noted above inthe right lower extremity. 2. There is no evidence of acute deep vein thrombosis on the left.Noninvasive venous studies cannot rule out isolated calf vein obstruction. HISTORY: Evelyn Gil is a 69-year-old woman with HTN, MOISÉS, CKD (b/l creatinine~1.1-1.2 eGFR 45-50) who was admitted on 01/06/2025 to the orthopedic spine for a substantialrevision thoracic, lumbar, and sacral fusion and decompressive laminectomy([id number]). Operative course complicated by acute blood loss anemia and acute kidney injury. PREVIOUS STUDIES: No previous studies for comparison. DISCLAIMER: The study images and the final report will be retained in the patientchart by the Vascular Laboratory for the legally required time period. This chartconstitutes the legal record of any testing performed. ATTESTATION: I have reviewed and interpreted the pertinent images and measurements ofthis study. I attest to the conclusions in the final report that is provided above. Electronically Signed By: Bonilla Serrano MD [facility] 01/12/2025 4:04:55 PM CDT us Inga Russ ENVIRONMENTAL SERVICES ATTENDANT IMG US PROCEDURES Final Result * POCT glucose (01/12/2025 8:37 AM CDT) [facility] Signature Glucose, POC 126 70 - 199 mg/dL Blood 01/12/2025 8:37 AM CDT 01/12/2025 8:37 AM CDT us Killian Dumont MD LAB POCT ORDERABLES - MATEUS CE Final Result [facility] Department [place] [address] * (ABNORMAL) eGFR (01/11/2025 9:44 PM CDT) [facility] eGFR 31(L) >=60 mL/min/1. 73 m2 Comment: Interpretive Data Reference Interval Normal >/= 90 mL/min/1.73m2 Mildly decreased* 60 - 89 mL/min/1.73m2 Mildly to moderately decreased 45 - 59 mL/min/1.73m2 Moderately to severely decreased 30 - 44 mL/min/1.73m2 Severely decreased 15 - 29 mL/min/1.73m2 Kidney Failure < 15 mL/min/1.73m2 *Relative to young adult level Estimated glomerular filtration rate is determined by the 2020 CKD-EPI equation recommended by the National Kidney Foundation (A Unifying Approach to GFR Estimation: Recommendations of the NKF-ASK Task Force on Reassessing the Inclusion of Race in Diagnosing Kidney Disease, JASN 2020). The CKD-EPI equation should not be used for patients with unstable renal function and has not been validated in children and those over 70. Current interpretive data was last reviewed 2021. Blood 01/11/2025 9:44 PM CDT 01/11/2025 10:06 PM CDT us Killian Dumont MD LAB BLOOD ORDERABLES Final Result [facility] Department [place] [address] * (ABNORMAL) CBC without differential (01/11/2025 9:44 PM CDT) [facility] WBC 10.05(H) 3.80 - 9.90 K/cumm Hgb 8.8(L) 11.9 - 15.5 g/dL [facility] Hct 27.2(L) 35.6 - 45.5 % [facility] Plt 103(L) 150 - 400 K/cumm [facility] MPV 9.9 9.1 - 12.[address] [facility] RBC 3.01(L) 3.90 - 5.20 M/cumm [facility] MCV 90.4 81.3 - 96.[address] [facility] MCH 29.2 27.1 - 33.[address] [facility] MCHC 32.4 32.3 - 35.7 g/dL [facility] RDW CV 17.2(H) 11.1 - 14.9 % [facility] RDW SD 55.7(H) 35.7 - 48.[address] [facility] NRBC abs 0.03(H) 0.00 - 0.01 K/cumm [facility] Blood 01/11/2025 9:44 PM CDT 01/11/2025 10:07 PM CDT Killian Dumont MD LAB BLOOD ORDERABLES Final Result Performing Organization Address City/[facility] Co de Phone Number [facility] [place] [address] * T4, free (01/11/2025 9:44 PM CDT) Free T4 0.90 0.90 - 1.70 ng/dL Blood 01/11/2025 9:44 PM CDT 01/11/2025 10:06 PM CDT Killian Dumont MD LAB BLOOD ORDERABLES Final Result Performing Organization Address City/[facility] Co de Phone Number [facility] [place] [address] * Phosphorus (01/11/2025 9:44 PM CDT) Phosphorus, pl 2.3 2.3 - 4.5 mg/dL Blood 01/11/2025 9:44 PM CDT 01/11/2025 10:06 PM CDT Killian Dumont MD LAB BLOOD ORDERABLES Final Result Performing Organization Address City/[facility]/ZIP Co de Phone Number [facility] [place] [address] * (ABNORMAL) Magnesium (01/11/2025 9:44 PM CDT) Magnesium 2.7(H) 1.4 - 2.5 mg/dL Blood 01/11/2025 9:44 PM CDT 01/11/2025 10:06 PM CDT Killian Dumont MD LAB BLOOD ORDERABLES Final Result [facility] Department [place] [address] * (ABNORMAL) Comprehensive metabolic panel (01/11/2025 9:44 PM CDT) Pathologist [facility] Sodium 138 135 - 145 mmol/L Potassium, pl 4.0 3.3 - 4.9 mmol/L [facility] Chloride 107 97 - 110 mmol/L [facility] CO2 26 22 - 32 mmol/L [facility] Anion gap 5 2 - 15 mmol/L [facility] BUN 52(H) 6 - 25 mg/dL [facility] Creatinine 1.73(H) 0.60 - 1.10 mg/dL [facility] Glucose 129 70 - 199 mg/dL [facility] Comment: Interpretive Data Fasting glucose >/= 126 mg/dl is diagnostic for diabetes. Fasting is defined as no caloric intake for at least 8 hours. Fasting glucose between 100 mg/dl to 125 mg/dl is diagnostic of prediabetes. In a patient with classic symptoms of hyperglycemia or hyperglycemic crisis, a random glucose >/= 200 mg/dl is diagnostic for diabetes. In the absence of unequivocal hyperglycemia, results should be confirmed by repeat testing. The classification and Diagnosis of Diabetes Diabetes Care 202; 46: S19-S40. Current interpretive data was last revised 2022. Calcium 7.2(L) 8.5 - 10.3 mg/dL [facility] Bilirubin, total 0.4 0.1 - 1.2 mg/dL [facility] Protein, pl 5.5(L) 6.5 - 8.5 g/dL [facility] Albumin 2.7(L) 3.5 - 5.0 g/dL [facility] Alk phos 89 40 - 130 Units/L [facility] ALT 48(H) 7 - 45 Units/L [facility] AST 65(H) 10 - 45 Units/L [facility] Blood 01/11/2025 9:44 PM CDT 01/11/2025 10:06 PM CDT Killian Dumont MD LAB BLOOD ORDERABLES Final Result Performing Organization Address City/[facility] Co de Phone Number [facility] [place] [address] * POCT glucose (01/11/2025 9:43 PM CDT) Glucose, POC 135 70 - 199 mg/dL Blood 01/11/2025 9:43 PM CDT 01/11/2025 9:43 PM CDT Killian Dumont MD LAB POCT ORDERABLES - MATEUS CE Final Result Performing Organization Address [facility] Co de Phone Number [facility] [place] [address] * POCT glucose (01/11/2025 5:10 PM CDT) Glucose, POC 134 70 - 199 mg/dL Blood 01/11/2025 5:10 PM CDT 01/11/2025 5:10 PM CDT Killian Dumont MD LAB POCT ORDERABLES - MATEUS CE Final Result Performing Organization Address [facility] Co de Phone Number [facility] [place] [address] * POCT glucose (01/11/2025 12:39 PM CDT) Glucose, POC 161 70 - 199 mg/dL Blood 01/11/2025 12:3 9 PM CDT 01/11/2025 12:39 PM CDT us Killian Dumont MD LAB POCT ORDERABLES - MATEUS CE Final Result Performing Organization Address [facility] Co de Phone Number [facility] [employer] [place] [place] [id number] * HIV 1/2 Antibody plus p24 Antigen Blood (01/11/2025 12:30 PM CDT) HIV 1/2 ab + p24 ag Nonreactive Nonreactive Comment:Nonreactive for HIV- 1 antigen and HIV-1/HIV-2 antibodies. No laboratory evidence of HIV infection. If acute HIV infection is suspected, consider testing for HIV-1 RNA. Current interpretive data was last revised on 22. Blood 01/11/2025 12:3 0 PM CDT 01/11/2025 1:05 PM CDT us Julee Yoder NP LAB MICROBIOLOGY - G ENERAL ORDERABLES Final Result Performing Organization Address City/[facility] Co de Phone Number [facility] [place] [address] * RPR Blood (01/11/2025 12:30 PM CDT) RPR Nonreactive Nonreactive Blood 01/11/2025 12:3 0 PM CDT 01/11/2025 1:07 PM CDT Julee Yoder NP LAB MICROBIOLOGY - G ENERAL ORDERABLES Final Result [facility] [place] [address] * (ABNORMAL) TSH (01/11/2025 12:30 PM CDT) Thyroid Stimulating Hormone 4.73(H) 0.30 - 4.20 mcIUnit/mL Blood 01/11/2025 12:3 0 PM CDT 01/11/2025 1:05 PM CDT Julee Yoder NP LAB BLOOD ORDERABLES Final Result Performing Organization Address [facility] de Phone Number [facility] [place] [address] * Vitamin B12 (01/11/2025 12:30 PM CDT) [facility] Vitamin B12 971 230 - 1,250 pg/mL Blood 01/11/2025 12:3 0 PM CDT 01/11/2025 1:05 PM CDT Result [facility] Julee Yoder NP LAB BLOOD ORDERABLES Final Result Performing Organization Address [facility] Phone Number [facility] [place] [address] * POCT glucose (01/11/2025 7:14 AM CDT) [facility] Glucose, POC 186 70 - 199 mg/dL Blood 01/11/2025 7:14 AM CDT 01/11/2025 7:14 AM CDT Result [facility] Killian Dumont MD LAB POCT ORDERABLES - MATEUS CE Final Result Performing Organization Address [facility] de Phone Number [facility] [place] [address] * (ABNORMAL) eGFR (01/10/2025 9:35 PM CDT) [facility] eGFR 28(L) >=60 mL/min/1. 73 m2 Comment: Interpretive Data Reference Interval Normal >/= 90 mL/min/1.73m2 Mildly decreased* 60 - 89 mL/min/1.73m2 Mildly to moderately decreased 45 - 59 mL/min/1.73m2 Moderately to severely decreased 30 - 44 mL/min/1.73m2 Severely decreased 15 - 29 mL/min/1.73m2 Kidney Failure < 15 mL/min/1.73m2 *Relative to young adult level Estimated glomerular filtration rate is determined by the 2020 CKD-EPI equation recommended by the National Kidney Foundation (A Unifying Approach to GFR Estimation: Recommendations of the NKF-ASK Task Force on Reassessing the Inclusion of Race in Diagnosing Kidney Disease, JASN 2020). The CKD-EPI equation should not be used for patients with unstable renal function and has not been validated in children and those over 70. Current interpretive data was last reviewed 2021. Blood 01/10/2025 9:35 PM CDT 01/10/2025 10:04 PM CDT us Killian Dumont MD LAB BLOOD ORDERABLES Final Result [facility] Department [place] [address] * (ABNORMAL) CBC without differential (01/10/2025 9:35 PM CDT) WBC 10.71(H) 3.80 - 9.90 K/cumm Hgb 8.9(L) 11.9 - 15.5 g/dL [facility] Hct 27.3(L) 35.6 - 45.5 % [facility] Plt 83(L) 150 - 400 K/cumm [facility] MPV 10.1 9.1 - 12.[address] [facility] RBC 3.04(L) 3.90 - 5.20 M/cumm [facility] MCV 89.8 81.3 - 96.[address] [facility] MCH 29.3 27.1 - 33.[address] [facility] MCHC 32.6 32.3 - 35.7 g/dL [facility] RDW CV 17.5(H) 11.1 - 14.9 % [facility] RDW SD 56.6(H) 35.7 - 48.[address] [facility] NRBC abs 0.02(H) 0.00 - 0.01 K/cumm [facility] Blood 01/10/2025 9:35 PM CDT 01/10/2025 10:05 PM CDT Killian Dumont MD LAB BLOOD ORDERABLES Final Result Performing Organization Address [facility] de Phone Number [facility] [place] [address] * Phosphorus (01/10/2025 9:35 PM CDT) [facility] Phosphorus, pl 3.1 2.3 - 4.5 mg/dL Blood 01/10/2025 9:35 PM CDT 01/10/2025 10:04 PM CDT Killian Dumont MD LAB BLOOD ORDERABLES Final Result Performing Organization Address [facility] [place] [address] * (ABNORMAL) Magnesium (01/10/2025 9:35 PM CDT) [facility] Magnesium 3.0(H) 1.4 - 2.5 mg/dL Blood 01/10/2025 9:35 PM CDT 01/10/2025 10:04 PM CDT Killian Dumont MD LAB BLOOD ORDERABLES Final Result Performing Organization Address [facility] [place] [address] * (ABNORMAL) Comprehensive metabolic panel (01/10/2025 9:35 PM CDT) [facility] Sodium 142 135 - 145 mmol/L Potassium, pl 4.5 3.3 - 4.9 mmol/L [facility] Chloride 109 97 - 110 mmol/L [facility] CO2 25 22 - 32 mmol/L [facility] Anion gap 8 2 - 15 mmol/L [facility] BUN 58(H) 6 - 25 mg/dL [facility] Creatinine 1.89(H) 0.60 - 1.10 mg/dL [facility] Glucose 118 70 - 199 mg/dL [facility] Comment: Interpretive Data Fasting glucose >/= 126 mg/dl is diagnostic for diabetes. Fasting is defined as no caloric intake for at least 8 hours. Fasting glucose between 100 mg/dl to 125 mg/dl is diagnostic of prediabetes. In a patient with classic symptoms of hyperglycemia or hyperglycemic crisis, a random glucose >/= 200 mg/dl is diagnostic for diabetes. In the absence of unequivocal hyperglycemia, results should be confirmed by repeat testing. The classification and Diagnosis of Diabetes Diabetes Care 202; 46: S19-S40. Current interpretive data was last revised 2022. Calcium 7.5(L) 8.5 - 10.3 mg/dL [facility] Bilirubin, total 0.4 0.1 - 1.2 mg/dL [facility] Protein, pl 5.6(L) 6.5 - 8.5 g/dL [facility] Albumin 2.8(L) 3.5 - 5.0 g/dL [facility] Alk phos 85 40 - 130 Units/L [facility] ALT 65(H) 7 - 45 Units/L [facility] AST 96(H) 10 - 45 Units/L [facility] Blood 01/10/2025 9:35 PM CDT 01/10/2025 10:04 PM CDT us Killian Dumont MD LAB BLOOD ORDERABLES Final Result [facility] [place] [address] * POCT glucose (01/10/2025 9:08 PM CDT) [facility] Glucose, POC 124 70 - 199 mg/dL Blood 01/10/2025 9:08 PM CDT 01/10/2025 9:08 PM CDT Killian Dumont MD LAB POCT ORDERABLES - MATEUS CE Final Result Performing Organization Address [facility] Co de Phone Number [facility] [place] [address] * (ABNORMAL) Hemoglobin and hematocrit (01/10/2025 6:44 PM CDT) Hgb 8.8(L) 11.9 - 15.5 g/dL Hct 27.0(L) 35.6 - 45.5 % [facility] Blood 01/10/2025 6:44 PM CDT 01/10/2025 7:04 PM CDT Riley Reyes MD LAB BLOOD ORDERABLES Renee l Result Performing Organization Address [facility] Co de Phone Number [facility] [place] [address] * Transfuse RBC (01/10/2025 5:53 PM CDT) Blood Julee Yoder NP BLOOD TRANSFUSION OR DERABLES Edited Result - Final Performing Organization Address [facility] Co de Phone Number [facility] [place] [address] * POCT glucose (01/10/2025 3:59 PM CDT) Glucose, POC 139 70 - 199 mg/dL Blood 01/10/2025 3:59 PM CDT 01/10/2025 3:59 PM CDT Killian Dumont MD LAB POCT ORDERABLES - MATEUS CE Final Result Performing Organization Address [facility] Co de Phone Number [facility] [place] [address] * (ABNORMAL) Urinalysis reflex to microscopic and culture Urine (01/10/2025 12:45 PM CDT) Color, ur Yellow Yellow Clarity, ur Cloudy(A) Clear [facility] Specific gravity, ur 1.021 1.003 - 1.[address] [facility] pH, urine 5.[address] [facility] Comment: Interpretive Data U rine pH is affected by diet, medications, systemic acid-base disturbances, and renal tubular function. pH may affect urinary stone formation. For example, urine pH below 6.0 may help reduce the tendency for calcium phosphate stones and pH greater than 6.0 may reduce the tendency for uric acid stone formation. Source: [facility] Current Interpretive Data was last revised on 2017 Protein, ur ql 1+(A) Negative [facility] Glucose, ur ql Negative Negative [facility] Ketones, ur Negative Negative [facility] Bilirubin, ur Negative Negative [facility] Blood, ur 3+(A) Negative [facility] Urobilinogen, ur <2.0 <2.0 mg/dL [facility] Nitrite, ur Negative Negative [facility] Leukocyte esterase, ur Negative Negative [facility] UA reflex comment Reflex to microscopic UA will be performed. [facility] Urine 01/10/2025 12:4 5 PM CDT 01/10/2025 1:01 PM CDT Killian Dumont MD LAB MICROBIOLOGY - GENERAL ORDERABLES Final Result [facility] Department [place] [address] * Urea nitrogen, urine, random (01/10/2025 12:45 PM CDT) Urea nitrogen, ur 835 mg/dL Comment: Interpretive Data No reference range established. Current interpretive data was last revised 2018. Urine 01/10/2025 12:4 5 PM CDT 01/10/2025 1:05 PM CDT Killian Dumont MD LAB URINE ORDERABLES Final Result Performing Organization Address [facility] de Phone Number [facility] [place] [address] * (ABNORMAL) Albumin Creatinine Ratio, Urine (01/10/2025 12:45 PM CDT) Albumin Ur 48.0 mg/L Comment: Interpretive Data No reference range established. Current interpretive data was last revised 2018. Creatinine Ur 112.3 mg/dL [facility] Comment: Interpretive Data No reference range established. Current interpretive data was last revised 2018. Albumin Creatinine Ratio, Ur 43(H) 1 - 29 mg/g [facility] Urine 01/10/2025 12:4 5 PM CDT 01/10/2025 1:01 PM CDT Killian Dumont MD LAB URINE ORDERABLES Final Result Performing Organization Address [facility] de Phone Number [facility] [place] [address] * Sodium, urine, random (01/10/2025 12:45 PM CDT) Sodium, ur 56 mmol/L Comment: Interpretive Data No reference range established. Current interpretive data was last revised 2018. Urine 01/10/2025 12:4 5 PM CDT 01/10/2025 1:05 PM CDT Result [facility] Killian Dumont MD LAB URINE ORDERABLES Final Result Performing Organization Address [facility] de Phone Number [facility] [place] [address] * (ABNORMAL) Urinalysis, microscopic only (01/10/2025 12:45 PM CDT) WBC, ur 11-20(A) 0 - 5 /HPF RBC, ur >50(A) 0 - 2 /HPF [facility] Epithelial cells, squamous, ur 1-5 0 - 5 /HPF [facility] Bacteria, ur 3+(A) [facility] Mucous, ur Present(A) [facility] Uric acid crystals, ur 1+(A) [facility] Granular casts, ur 11-20(A) 0 - 0 /LPF [facility] Culture Reflex Comment Reflex to urine culture will be performed. [facility] Urine 01/10/2025 12:4 5 PM CDT 01/10/2025 1:01 PM CDT us Killian Dumont MD LAB URINE ORDERABLES Final Result Performing Organization Address City/[facility]/ZIP Co de Phone Number [facility] [place] [address] * Urine culture Urine (01/10/2025 12:45 PM CDT) Report Final Report: No growth Urine 01/10/2025 12:4 5 PM CDT 01/10/2025 4:46 PM CDT Narrative [facility] - 01/11/2025 5:35 PM CDT Urine culture reflexed based upon urinalysis results. Testing performed by [facility] ([phone]) us Killian Dumont MD LAB MICROBIOLOGY - GENERAL ORDERABLES Final Result [facility] Department [place] [address] * POCT glucose (01/10/2025 11:35 AM CDT) Glucose, POC 141 70 - 199 mg/dL Blood 01/10/2025 11:3 5 AM CDT 01/10/2025 11:35 AM CDT Killian Dumont MD LAB POCT ORDERABLES - MATEUS CE Final Result Performing Organization Address [facility] Co de Phone Number [facility] [place] [address] * Type and screen (01/10/2025 11:34 AM CDT) ABO Rh O Positive Maribell, indirect Negative [facility] Blood 01/10/2025 11:3 4 AM CDT 01/10/2025 11:53 AM CDT Narrative [facility] - 01/10/2025 12:49 PM CDT Has the patient had Daratumumab or Isatuximab in the past 6 months?->Unknown Julee Yoder NP LAB BLOOD BANK TEST ORDERABLES Final Result Performing Organization Address [facility] [place] [address] * Prepare RBC: 1 Units (01/10/2025 10:24 AM CDT) Product code [id number] Unit Number [id number] [facility] Product Blood Type OPOS [facility] Dispense Status PRESUMED TRANSFUSED [facility] Blood 01/10/2025 10:2 4 AM CDT 01/10/2025 10:24 AM CDT Narrative [facility] - 01/11/2025 4:00 AM CDT Are special requirements needed? (All products are leukoreduced and CMV- safe)- >No Date required:-[id number] LRRBC # of [id number] Reasons:-Cardiovascular disease, Hgb <8 g/dL} Julee Yoder NP BLOOD BANK PRODUCT O RDERABLES Final Result Performing Organization Address [facility] Co de Phone Number [facility] [place] [address] * POCT glucose (01/10/2025 7:19 AM CDT) [facility] Glucose, POC 152 70 - 199 mg/dL Blood 01/10/2025 7:19 AM CDT 01/10/2025 7:19 AM CDT us Killian Dumont MD LAB POCT ORDERABLES - MATEUS CE Final Result Performing Organization Address City/[facility]/ZIP Co de Phone Number [facility] Department [place] [address] * (ABNORMAL) eGFR (01/10/2025 6:13 AM CDT) [facility] eGFR 29(L) >=60 mL/min/1. 73 m2 Comment: Interpretive Data Reference Interval Normal >/= 90 mL/min/1.73m2 Mildly decreased* 60 - 89 mL/min/1.73m2 Mildly to moderately decreased 45 - 59 mL/min/1.73m2 Moderately to severely decreased 30 - 44 mL/min/1.73m2 Severely decreased 15 - 29 mL/min/1.73m2 Kidney Failure < 15 mL/min/1.73m2 *Relative to young adult level Estimated glomerular filtration rate is determined by the 2020 CKD-EPI equation recommended by the National Kidney Foundation (A Unifying Approach to GFR Estimation: Recommendations of the NKF-ASK Task Force on Reassessing the Inclusion of Race in Diagnosing Kidney Disease, JASN 2020). The CKD-EPI equation should not be used for patients with unstable renal function and has not been validated in children and those over 70. Current interpretive data was last reviewed 2021. Blood 01/10/2025 6:13 AM CDT 01/10/2025 6:37 AM CDT us Rosalva Polanco NP LAB BLOOD ORDERABLES Final Res ult Performing Organization Address City/[facility]/ZIP Co de Phone Number [facility] Department [place] [address] * (ABNORMAL) aPTT (01/10/2025 6:13 AM CDT) [facility] aPTT 24(L) 26 - 38 sec Comment: Interpretive Data Heparin therapeutic range: 66.0 - 100.0 seconds. Range based on correlation with therapeutic heparin activity range of 0.3 - 0.7 Units/mL. Current interpretive data was last revised on 2023. Blood 01/10/2025 6:13 AM CDT 01/10/2025 7:00 AM CDT Rosalva Polanco LAB BLOOD ORDERABLES Final Res ult Performing Organization Address [facility] de Phone Number [facility] [place] [address] * Protime-INR (01/10/2025 6:13 AM CDT) [facility] PT 11.9 10.2 - 13.5 sec INR 1.05 0.90 - 1.[address] [facility] Comment: Interpretive data Oral anticoagulant therapeutic ranges: Venous thromboembolism prophylaxis or treatment: 2.0-3.0 CARDIOLOGY Standard range: 2.0-3.0 High-intensity range: 2.5-3.5 Refer to indication-specific guidelines for appropriate target ranges for prosthetic heart valve replacement. Current interpretive data was last revised on 2019. Blood 01/10/2025 6:13 AM CDT 01/10/2025 7:00 AM CDT Rosalva Polanco NP LAB BLOOD ORDERABLES Final Res ult Performing Organization Address [facility] de Phone Number [facility] [place] [address] * (ABNORMAL) CBC without differential (01/10/2025 6:13 AM CDT) Pathologist [facility] WBC 11.87(H) 3.80 - 9.90 K/cumm Hgb 7.5(L) 11.9 - 15.5 g/dL [facility] Hct 22.6(L) 35.6 - 45.5 % [facility] Plt 81(L) 150 - 400 K/cumm [facility] MPV 11.1 9.1 - 12.[address] [facility] RBC 2.55(L) 3.90 - 5.20 M/cumm [facility] MCV 88.6 81.3 - 96.[address] [facility] MCH 29.4 27.1 - 33.[address] [facility] MCHC 33.2 32.3 - 35.7 g/dL [facility] RDW CV 18.2(H) 11.1 - 14.9 % [facility] RDW SD 58.3(H) 35.7 - 48.[address] [facility] NRBC abs 0.03(H) 0.00 - 0.01 K/cumm [facility] Blood 01/10/2025 6:13 AM CDT 01/10/2025 6:37 AM CDT us Rosalva Polanco ENVIRONMENTAL SERVICES ATTENDANT LAB BLOOD ORDERABLES Final Res ult [facility] Department [place] [address] * (ABNORMAL) Basic metabolic panel (01/10/2025 6:13 AM CDT) Sodium 142 135 - 145 mmol/L Potassium, pl 4.1 3.3 - 4.9 mmol/L [facility] Chloride 110 97 - 110 mmol/L [facility] CO2 27 22 - 32 mmol/L [facility] Anion gap 5 2 - 15 mmol/L [facility] BUN 60(H) 6 - 25 mg/dL [facility] Creatinine 1.84(H) 0.60 - 1.10 mg/dL [facility] Glucose 194 70 - 199 mg/dL [facility] Comment: Interpretive Data Fasting glucose >/= 126 mg/dl is diagnostic for diabetes. Fasting is defined as no caloric intake for at least 8 hours. Fasting glucose between 100 mg/dl to 125 mg/dl is diagnostic of prediabetes. In a patient with classic symptoms of hyperglycemia or hyperglycemic crisis, a random glucose >/= 200 mg/dl is diagnostic for diabetes. In the absence of unequivocal hyperglycemia, results should be confirmed by repeat testing. The classification and Diagnosis of Diabetes Diabetes Care 202; 46: S19-S40. Current interpretive data was last revised 2022. Calcium 7.4(L) 8.5 - 10.3 mg/dL [facility] Blood 01/10/2025 6:13 AM CDT 01/10/2025 6:37 AM CDT us Rosalva Polanco NP LAB BLOOD ORDERABLES Final Res ult [facility] Department [place] [address] * POCT glucose (01/09/2025 9:10 PM CDT) Glucose, POC 183 70 - 199 mg/dL Blood 01/09/2025 9:10 PM CDT 01/09/2025 9:10 PM CDT us Killian Dumont MD LAB POCT ORDERABLES - MATEUS CE Final Result Performing Organization Address City/[facility]/ZIP Co de Phone Number [facility] Department [place] [address] * (ABNORMAL) eGFR (01/09/2025 8:45 PM CDT) eGFR 27(L) >=60 mL/min/1. 73 m2 Comment: Interpretive Data Reference Interval Normal >/= 90 mL/min/1.73m2 Mildly decreased* 60 - 89 mL/min/1.73m2 Mildly to moderately decreased 45 - 59 mL/min/1.73m2 Moderately to severely decreased 30 - 44 mL/min/1.73m2 Severely decreased 15 - 29 mL/min/1.73m2 Kidney Failure < 15 mL/min/1.73m2 *Relative to young adult level Estimated glomerular filtration rate is determined by the 2020 CKD-EPI equation recommended by the National Kidney Foundation (A Unifying Approach to GFR Estimation: Recommendations of the NKF-ASK Task Force on Reassessing the Inclusion of Race in Diagnosing Kidney Disease, JASN 2020). The CKD-EPI equation should not be used for patients with unstable renal function and has not been validated in children and those over 70. Current interpretive data was last reviewed 2021. Blood 01/09/2025 8:45 PM CDT 01/09/2025 9:05 PM CDT Haylee Barrera ENVIRONMENTAL SERVICES ATTENDANT LAB BLOOD ORDERABL ES Final Result Performing Organization Address [facility] Co de Phone Number [facility] [place] [address] * (ABNORMAL) aPTT (01/09/2025 8:45 PM CDT) aPTT 23(L) 26 - 38 sec Comment: Interpretive Data Heparin therapeutic range: 66.0 - 100.0 seconds. Range based on correlation with therapeutic heparin activity range of 0.3 - 0.7 Units/mL. Current interpretive data was last revised on 2023. Blood 01/09/2025 8:45 PM CDT 01/09/2025 9:05 PM CDT Rosalva Polanco ENVIRONMENTAL SERVICES ATTENDANT LAB BLOOD ORDERABLES Final Res ult Performing Organization Address [facility] Co de Phone Number [facility] [place] [address] * Protime-INR (01/09/2025 8:45 PM CDT) PT 11.0 10.2 - 13.5 sec INR 0.97 0.90 - 1.[address] [facility] Comment: Interpretive data Oral anticoagulant therapeutic ranges: Venous thromboembolism prophylaxis or treatment: 2.0-3.0 CARDIOLOGY Standard range: 2.0-3.0 High-intensity range: 2.5-3.5 Refer to indication-specific guidelines for appropriate target ranges for prosthetic heart valve replacement. Current interpretive data was last revised on 2019. Blood 01/09/2025 8:45 PM CDT 01/09/2025 9:05 PM CDT us Rosalva Polanco NP LAB BLOOD ORDERABLES Final Res ult Performing Organization Address [facility]/ZIP Co de Phone Number [facility] [place] [address] * (ABNORMAL) CBC without differential (01/09/2025 8:45 PM CDT) WBC 14.43(H) 3.80 - 9.90 K/cumm Hgb 8.5(L) 11.9 - 15.5 g/dL [facility] Hct 26.0(L) 35.6 - 45.5 % [facility] Plt 85(L) 150 - 400 K/cumm [facility] MPV 11.5 9.1 - 12.[address] [facility] RBC 2.97(L) 3.90 - 5.20 M/cumm [facility] MCV 87.5 81.3 - 96.[address] [facility] MCH 28.6 27.1 - 33.[address] [facility] MCHC 32.7 32.3 - 35.7 g/dL [facility] RDW CV 18.1(H) 11.1 - 14.9 % [facility] RDW SD 57.9(H) 35.7 - 48.[address] [facility] NRBC abs 0.03(H) 0.00 - 0.01 K/cumm [facility] Blood 01/09/2025 8:45 PM CDT 01/09/2025 9:05 PM CDT us Killian Dumont MD LAB BLOOD ORDERABLES Final Result [facility] [place] [address] * Phosphorus (01/09/2025 8:45 PM CDT) [facility] Phosphorus, pl 3.8 2.3 - 4.5 mg/dL Blood 01/09/2025 8:45 PM CDT 01/09/2025 9:05 PM CDT Killian Dumont MD LAB BLOOD ORDERABLES Final Result Performing Organization Address City/[facility]/ZIP Co de Phone Number [facility] Department [place] [address] * (ABNORMAL) Magnesium (01/09/2025 8:45 PM CDT) [facility] Magnesium 3.2(H) 1.4 - 2.5 mg/dL Blood 01/09/2025 8:45 PM CDT 01/09/2025 9:05 PM CDT Killian Dumont MD LAB BLOOD ORDERABLES Final Result Performing Organization Address City/[facility] de Phone Number [facility] [place] [address] * (ABNORMAL) Comprehensive metabolic panel (01/09/2025 8:45 PM CDT) [facility] Sodium 142 135 - 145 mmol/L Potassium, pl 4.3 3.3 - 4.9 mmol/L [facility] Chloride 108 97 - 110 mmol/L [facility] CO2 25 22 - 32 mmol/L [facility] Anion gap 9 2 - 15 mmol/L [facility] BUN 63(H) 6 - 25 mg/dL [facility] Creatinine 1.97(H) 0.60 - 1.10 mg/dL [facility] Glucose 172 70 - 199 mg/dL [facility] Comment: Interpretive Data Fasting glucose >/= 126 mg/dl is diagnostic for diabetes. Fasting is defined as no caloric intake for at least 8 hours. Fasting glucose between 100 mg/dl to 125 mg/dl is diagnostic of prediabetes. In a patient with classic symptoms of hyperglycemia or hyperglycemic crisis, a random glucose >/= 200 mg/dl is diagnostic for diabetes. In the absence of unequivocal hyperglycemia, results should be confirmed by repeat testing. The classification and Diagnosis of Diabetes Diabetes Care 2021; 46: S19-S40. Current interpretive data was last revised 2022. Calcium 8.1(L) 8.5 - 10.3 mg/dL [facility] Bilirubin, total 0.4 0.1 - 1.2 mg/dL [facility] Protein, pl 5.8(L) 6.5 - 8.5 g/dL [facility] Albumin 3.1(L) 3.5 - 5.0 g/dL [facility] Alk phos 86 40 - 130 Units/L [facility] ALT 113(H) 7 - 45 Units/L [facility] AST 205(H) 10 - 45 Units/L [facility] Blood 01/09/2025 8:45 PM CDT 01/09/2025 9:05 PM CDT Killian Dumont MD LAB BLOOD ORDERABLES Final Result [facility] [place] [address] * POCT glucose (01/09/2025 6:05 PM CDT) Glucose, POC 155 70 - 199 mg/dL Blood 01/09/2025 6:05 PM CDT 01/09/2025 6:05 PM CDT Killian Dumont MD LAB POCT ORDERABLES - MATEUS CE Final Result [facility] [place] [address] * POCT glucose (01/09/2025 3:28 PM CDT) Glucose, POC 149 70 - 199 mg/dL Blood 01/09/2025 3:28 PM CDT 01/09/2025 3:28 PM CDT Killian Dumont MD LAB POCT ORDERABLES - MATEUS CE Final Result Performing Organization Address [facility] Co de Phone Number [facility] Department [place] [address] * (ABNORMAL) POCT glucose (01/09/2025 11:13 AM CDT) Glucose, POC 200(H) 70 - 199 mg/dL Comment:Glu2: RN/MD Notified Glucose comment 1 Glu2: RN/MD Notified [facility] Blood 01/09/2025 11:1 3 AM CDT 01/09/2025 11:13 AM CDT Killian Dumont MD LAB POCT ORDERABLES - MATEUS CE Final Result Performing Organization Address [facility] de Phone Number [facility] Department [place] [address] * Critical Care (01/09/2025 10:08 AM CDT) Narrative Demi Blackman MD - 01/09/2025 10:08 AM CDT eDmi Blackman MD 01/09/2025 11:14 AM Critical Care Performed by: Demi Blackman MD Authorized by: Demi Blackman MD CRITICAL CARE: Team: SICU RED Shift: AM Level of Billing: Critical Care My time spent with this patient was 45 minutes: Critical Provider Statement: I have seen and examined the patient on this day of service. I have reviewed and confirmed the history, physical exam, laboratory and radiologic data as documented in the signed ICU note. I have reviewed and discussed my treatment plan with the ICU team and other medical/automotive consultant staff, making frequent assessments and decisions regarding this patient's complex medical care. Critical Care time was exclusive of time spent performing separately billed procedures, treating other patients, and teaching. This time was in addition to and separate from critical care provided by other practitioners in my group on this day of service. Critical Care was necessary to treat or prevent imminent or life-threatening deterioration of the following conditions: Acute pain/acute postoperative pain Acute kidney injury, Acute electrolyte derangement and Hypo- or Hyperglycemia Acute blood loss anemia and Thrombocytopenia This time was spent by me doing the following: Serial laboratory checks, Serial bedside patient exams and Obtaining peripheral venous access or blood draws Acute pain control Active and frequent reassessment of respiratory status and oxygen requirements and Incentive spirometry, pulmonary toilet Active and frequent monitoring of intake/output and volumen status and Glycemic control I spent time reviewing and interpreting data from bedside monitors, laboratory results, and imaging, I spent time discussing the management of this critically ill patient with consultants and the medical staff and I spent time documenting in the medical record us Demi Blackman MD IN CLINIC/BEDSIDE ORDERABLE S Final Result * POCT glucose (01/09/2025 7:14 AM CDT) Glucose, POC 176 70 - 199 mg/dL Blood 01/09/2025 7:14 AM CDT 01/09/2025 7:14 AM CDT Killian Dumont MD LAB POCT ORDERABLES - MATEUS CE Final Result Performing Organization Address [facility]/ZIP Co de Phone Number [facility] [place] [address] * POCT glucose (01/09/2025 3:15 AM CDT) Glucose, POC 193 70 - 199 mg/dL Blood 01/09/2025 3:15 AM CDT 01/09/2025 3:15 AM CDT Killian Dumont MD LAB POCT ORDERABLES - MATEUS CE Final Result Performing Organization Address City/[facility] Co de Phone Number [facility] [place] [address] * (ABNORMAL) POCT glucose (01/08/2025 11:16 PM CDT) Glucose, POC 227(H) 70 - 199 mg/dL Comment:Glu2: RN/MD Notified Glucose comment 1 Glu2: RN/MD Notified [facility] Blood 01/08/2025 11:1 6 PM CDT 01/08/2025 11:16 PM CDT Killian Dumont MD LAB POCT ORDERABLES - MATEUS CE Final Result Performing Organization Address [facility] de Phone Number [facility] [place] [address] * POCT glucose (01/08/2025 10:14 PM CDT) Glucose, POC 171 70 - 199 mg/dL Blood 01/08/2025 10:1 4 PM CDT 01/08/2025 10:14 PM CDT Killian Dumont MD LAB POCT ORDERABLES - MATEUS CE Final Result Performing Organization Address [facility] de Phone Number [facility] [place] [address] * Critical Care (01/08/2025 10:00 PM CDT) Narrative Alvaro Tracy MD - 01/08/2025 10:00 PM CDT Alvaro Tracy MD 01/09/2025 4:22 AM Critical Care Performed by: Alvaro Tracy MD Authorized by: Alvaro Tracy MD CRITICAL CARE: Team: SICU RED Shift: PM Level of Billing: Critical Care My time spent with this patient was 40 minutes: Critical Provider Statement: I have seen and examined the patient on this day of service. I have reviewed and confirmed the history, physical exam, laboratory and radiologic data as documented in the signed ICU note. I have reviewed and discussed my treatment plan with the ICU team and other medical/automotive consultant staff, making frequent assessments and decisions regarding this patient's complex medical care. Critical Care time was exclusive of time spent performing separately billed procedures, treating other patients, and teaching. This time was in addition to and separate from critical care provided by other practitioners in my group on this day of service. Critical Care was necessary to treat or prevent imminent or life-threatening deterioration of the following conditions: Encephalopathy/altered mental status and Acute pain/acute postoperative pain Undifferentiated shock Acute kidney injury This time was spent by me doing the following: Resuscitation with fluids Acute pain control and Frequent neurologic exams Initiation/active titration of vasoactive medications I spent time reviewing and interpreting data from bedside monitors, laboratory results, and imaging, I spent time discussing the management of this critically ill patient with consultants and the medical staff and I spent time documenting in the medical record us Alvaro Tracy MD IN CLINIC/BEDSIDE ORDERABLES Final Result * (ABNORMAL) eGFR (01/08/2025 9:17 PM CDT) Pathologist [facility] eGFR 24(L) >=60 mL/min/1. 73 m2 Comment: Interpretive Data Reference Interval Normal >/= 90 mL/min/1.73m2 Mildly decreased* 60 - 89 mL/min/1.73m2 Mildly to moderately decreased 45 - 59 mL/min/1.73m2 Moderately to severely decreased 30 - 44 mL/min/1.73m2 Severely decreased 15 - 29 mL/min/1.73m2 Kidney Failure < 15 mL/min/1.73m2 *Relative to young adult level Estimated glomerular filtration rate is determined by the 2020 CKD-EPI equation recommended by the National Kidney Foundation (A Unifying Approach to GFR Estimation: Recommendations of the NKF-ASK Task Force on Reassessing the Inclusion of Race in Diagnosing Kidney Disease, JASN 202). The CKD-EPI equation should not be used for patients with unstable renal function and has not been validated in children and those over 70. Current interpretive data was last reviewed 2021. Blood 01/08/2025 9:17 PM CDT 01/08/2025 10:39 PM CDT us Haylee Barrera NP LAB BLOOD ORDERABL ES Final Result [facility] Department [place] [address] * (ABNORMAL) CBC without differential (01/08/2025 9:17 PM CDT) Pathologist [facility] WBC 15.66(H) 3.80 - 9.90 K/cumm Hgb 9.3(L) 11.9 - 15.5 g/dL [facility] Hct 27.9(L) 35.6 - 45.5 % [facility] Plt 65(L) 150 - 400 K/cumm [facility] MPV 11.4 9.1 - 12.[address] [facility] RBC 3.27(L) 3.90 - 5.20 M/cumm [facility] MCV 85.3 81.3 - 96.[address] [facility] MCH 28.4 27.1 - 33.[address] [facility] MCHC 33.3 32.3 - 35.7 g/dL [facility] RDW CV 17.8(H) 11.1 - 14.9 % [facility] RDW SD 55.3(H) 35.7 - 48.[address] [facility] NRBC abs 0.03(H) 0.00 - 0.01 K/cumm [facility] Blood 01/08/2025 9:17 PM CDT 01/08/2025 10:44 PM CDT Killian Dumont MD LAB BLOOD ORDERABLES Final Result Performing Organization Address City/[facility]/ZIP Co de Phone Number [facility] Department [place] [address] * Phosphorus (01/08/2025 9:17 PM CDT) Pathologist [facility] Phosphorus, pl 4.1 2.3 - 4.5 mg/dL Blood 01/08/2025 9:17 PM CDT 01/08/2025 10:39 PM CDT Killian Dumont MD LAB BLOOD ORDERABLES Final Result [facility] Department [place] [address] * (ABNORMAL) Magnesium (01/08/2025 9:17 PM CDT) Pathologist [facility] Magnesium 2.9(H) 1.4 - 2.5 mg/dL Blood 01/08/2025 9:17 PM CDT 01/08/2025 10:39 PM CDT Killian Dumont MD LAB BLOOD ORDERABLES Final Result [facility] Department [place] [address] * (ABNORMAL) Comprehensive metabolic panel (01/08/2025 9:17 PM CDT) Pathologist [facility] Sodium 145 135 - 145 mmol/L Potassium, pl 4.4 3.3 - 4.9 mmol/L [facility] Chloride 111(H) 97 - 110 mmol/L [facility] CO2 23 22 - 32 mmol/L [facility] Anion gap 11 2 - 15 mmol/L [facility] BUN 52(H) 6 - 25 mg/dL [facility] Creatinine 2.18(H) 0.60 - 1.10 mg/dL [facility] Glucose 177 70 - 199 mg/dL [facility] Comment: Interpretive Data Fasting glucose >/= 126 mg/dl is diagnostic for diabetes. Fasting is defined as no caloric intake for at least 8 hours. Fasting glucose between 100 mg/dl to 125 mg/dl is diagnostic of prediabetes. In a patient with classic symptoms of hyperglycemia or hyperglycemic crisis, a random glucose >/= 200 mg/dl is diagnostic for diabetes. In the absence of unequivocal hyperglycemia, results should be confirmed by repeat testing. The classification and Diagnosis of Diabetes Diabetes Care 2021; 46: S19-S40. Current interpretive data was last revised 2022. Calcium 8.3(L) 8.5 - 10.3 mg/dL [facility] Bilirubin, total 0.5 0.1 - 1.2 mg/dL [facility] Protein, pl 5.7(L) 6.5 - 8.5 g/dL [facility] Albumin 3.1(L) 3.5 - 5.0 g/dL [facility] Alk phos 83 40 - 130 Units/L [facility] ALT 196(H) 7 - 45 Units/L [facility] AST 434(H) 10 - 45 Units/L [facility] Blood 01/08/2025 9:17 PM CDT 01/08/2025 10:39 PM CDT us Killian Dumont MD LAB BLOOD ORDERABLES Final Result [facility] [place] [address] * Critical Care (01/08/2025 5:56 PM CDT) Narrative Demi Blackman MD - 01/08/2025 5:56 PM CDT Demi Blackman MD 01/08/2025 6:05 PM Critical Care Performed by: Demi Blackman MD Authorized by: Demi Blackman MD CRITICAL CARE: Team: SICU RED Shift: AM Level of Billing: Critical Care My time spent with this patient was 90 minutes: Critical Provider Statement: I have seen and examined the patient on this day of service. I have reviewed and confirmed the history, physical exam, laboratory and radiologic data as documented in the signed ICU note. I have reviewed and discussed my treatment plan with the ICU team and other medical/automotive consultant staff, making frequent assessments and decisions regarding this patient's complex medical care. Critical Care time was exclusive of time spent performing separately billed procedures, treating other patients, and teaching. This time was in addition to and separate from critical care provided by other practitioners in my group on this day of service. Critical Care was necessary to treat or prevent imminent or life-threatening deterioration of the following conditions: Acute pain/acute postoperative pain and Encephalopathy/altered mental status Hypotension Transaminitis and Protein-calorie malnutrition Acute kidney injury, Acid-base disturbance, Acute electrolyte derangement and Hypo- or Hyperglycemia Acute blood loss anemia and Thrombocytopenia This time was spent by me doing the following: Serial laboratory checks, Serial bedside patient exams and Obtaining peripheral venous access or blood draws Acute pain control Initiation/active titration of vasoactive medications Active and frequent reassessment of respiratory status and oxygen requirements Active and frequent monitoring of intake/output and volumen status and Glycemic control I spent time reviewing and interpreting data from bedside monitors, laboratory results, and imaging, I spent time discussing the management of this critically ill patient with consultants and the medical staff and I spent time documenting in the medical record Demi Blackman MD IN CLINIC/BEDSIDE ORDERABLE S Final Result * Sodium, urine, random (01/08/2025 4:31 PM CDT) Sodium, ur 73 mmol/L Comment: Interpretive Data No reference range established. Current interpretive data was last revised 2018. Urine 01/08/2025 4:31 PM CDT 01/08/2025 4:50 PM CDT Killian Dumont MD LAB URINE ORDERABLES Final Result Performing Organization Address City/[facility]/ZIP Co de Phone Number [facility] [place] [address] * Creatinine, urine, random (01/08/2025 4:31 PM CDT) Creatinine Ur 97.3 mg/dL Comment: Interpretive Data No reference range established. Current interpretive data was last revised 2018. Urine 01/08/2025 4:31 PM CDT 01/08/2025 4:50 PM CDT Killian Dumont MD LAB URINE ORDERABLES Final Result [facility] [place] [address] * POCT glucose (01/08/2025 3:12 PM CDT) Glucose, POC 126 70 - 199 mg/dL Blood 01/08/2025 3:12 PM CDT 01/08/2025 3:12 PM CDT us Killian Dumont MD LAB POCT ORDERABLES - MATEUS CE Final Result Performing Organization Address [facility] de Phone Number [facility] Department [place] [address] * (ABNORMAL) Hemoglobin and hematocrit (01/08/2025 1:05 PM CDT) Hgb 8.8(L) 11.9 - 15.5 g/dL Hct 25.8(L) 35.6 - 45.5 % [facility] Blood 01/08/2025 1:05 PM CDT 01/08/2025 1:13 PM CDT Killian Dumont MD LAB BLOOD ORDERABLES Final Result Performing Organization Address [facility] de Phone Number [facility] [place] [address] * Calcium, ionized (01/08/2025 1:02 PM CDT) Calcium, Ionized 4.51 4.50 - 5.10 mg/dL Blood 01/08/2025 1:02 PM CDT 01/08/2025 1:13 PM CDT Killian Dumont MD LAB BLOOD ORDERABLES Final Result Performing Organization Address [facility] Co de Phone Number [facility] [place] [address] * Transfuse RBC (01/08/2025 11:41 AM CDT) Blood us Killian Dumont MD BLOOD TRANSFUSION ORDERABL ES Final Result Performing Organization Address [facility] Co de Phone Number [facility] [place] [address] * POCT glucose (01/08/2025 11:12 AM CDT) Glucose, POC 125 70 - 199 mg/dL Blood 01/08/2025 11:1 2 AM CDT 01/08/2025 11:12 AM CDT Killian Dumont MD LAB POCT ORDERABLES - MATEUS CE Final Result Performing Organization Address [facility] [place] [address] * POCT glucose (01/08/2025 7:52 AM CDT) Glucose, POC 133 70 - 199 mg/dL Blood 01/08/2025 7:52 AM CDT 01/08/2025 7:52 AM CDT Killian Dumont MD LAB POCT ORDERABLES - MATEUS CE Final Result Performing Organization Address [facility] [place] [address] * (ABNORMAL) aPTT (01/08/2025 5:59 AM CDT) aPTT 24(L) 26 - 38 sec Comment: Interpretive Data Heparin therapeutic range: 66.0 - 100.0 seconds. Range based on correlation with therapeutic heparin activity range of 0.3 - 0.7 Units/mL. Current interpretive data was last revised on 2023. Blood 01/08/2025 5:59 AM CDT 01/08/2025 6:55 AM CDT Killian Dumont MD LAB BLOOD ORDERABLES Final Result Performing Organization Address City/[facility] de Phone Number [facility] [place] [address] * Protime-INR (01/08/2025 5:59 AM CDT) PT 11.4 10.2 - 13.5 sec INR 1.01 0.90 - 1.20 [facility] Comment: Interpretive data Oral anticoagulant therapeutic ranges: Venous thromboembolism prophylaxis or treatment: 2.0-3.0 CARDIOLOGY Standard range: 2.0-3.0 High-intensity range: 2.5-3.5 Refer to indication-specific guidelines for appropriate target ranges for prosthetic heart valve replacement. Current interpretive data was last revised on 2019. Blood 01/08/2025 5:59 AM CDT 01/08/2025 6:55 AM CDT us Killian Dumont MD LAB BLOOD ORDERABLES Final Result [facility] Department [place] [address] * (ABNORMAL) eGFR (01/08/2025 5:04 AM CDT) eGFR 20(L) >=60 mL/min/1. 73 m2 Comment: Interpretive Data Reference Interval Normal >/= 90 mL/min/1.73m2 Mildly decreased* 60 - 89 mL/min/1.73m2 Mildly to moderately decreased 45 - 59 mL/min/1.73m2 Moderately to severely decreased 30 - 44 mL/min/1.73m2 Severely decreased 15 - 29 mL/min/1.73m2 Kidney Failure < 15 mL/min/1.73m2 *Relative to young adult level Estimated glomerular filtration rate is determined by the 2020 CKD-EPI equation recommended by the National Kidney Foundation (A Unifying Approach to GFR Estimation: Recommendations of the NKF-ASK Task Force on Reassessing the Inclusion of Race in Diagnosing Kidney Disease, JASN 2020). The CKD-EPI equation should not be used for patients with unstable renal function and has not been validated in children and those over 70. Current interpretive data was last reviewed 2021. Blood 01/08/2025 5:04 AM CDT 01/08/2025 5:32 AM CDT Killian Dumont MD LAB BLOOD ORDERABLES Final Result Performing Organization Address [facility] Co de Phone Number [facility] Department [place] [address] * (ABNORMAL) CBC without differential (01/08/2025 5:04 AM CDT) WBC 12.59(H) 3.80 - 9.90 K/cumm Hgb 7.8(L) 11.9 - 15.5 g/dL [facility] Hct 23.1(L) 35.6 - 45.5 % [facility] Plt 60(L) 150 - 400 K/cumm [facility] MPV 11.1 9.1 - 12.[address] [facility] RBC 2.73(L) 3.90 - 5.20 M/cumm [facility] MCV 84.6 81.3 - 96.[address] [facility] MCH 28.6 27.1 - 33.[address] [facility] MCHC 33.8 32.3 - 35.7 g/dL [facility] RDW CV 18.5(H) 11.1 - 14.9 % [facility] RDW SD 56.6(H) 35.7 - 48.[address] [facility] NRBC abs 0.02(H) 0.00 - 0.01 K/cumm [facility] Blood 01/08/2025 5:04 AM CDT 01/08/2025 5:32 AM CDT Killian Dumont MD LAB BLOOD ORDERABLES Final Result Performing Organization Address City/[facility]/ZIP Co de Phone Number [facility] [place] [address] * (ABNORMAL) Basic metabolic panel (01/08/2025 5:04 AM CDT) Sodium 142 135 - 145 mmol/L Potassium, pl 4.0 3.3 - 4.9 mmol/L [facility] Chloride 110 97 - 110 mmol/L [facility] CO2 25 22 - 32 mmol/L [facility] Anion gap 7 2 - 15 mmol/L [facility] BUN 51(H) 6 - 25 mg/dL [facility] Creatinine 2.48(H) 0.60 - 1.10 mg/dL [facility] Glucose 146 70 - 199 mg/dL [facility] Comment: Interpretive Data Fasting glucose >/= 126 mg/dl is diagnostic for diabetes. Fasting is defined as no caloric intake for at least 8 hours. Fasting glucose between 100 mg/dl to 125 mg/dl is diagnostic of prediabetes. In a patient with classic symptoms of hyperglycemia or hyperglycemic crisis, a random glucose >/= 200 mg/dl is diagnostic for diabetes. In the absence of unequivocal hyperglycemia, results should be confirmed by repeat testing. The classification and Diagnosis of Diabetes Diabetes Care 2021; 46: S19-S40. Current interpretive data was last revised 2022. Calcium 8.0(L) 8.5 - 10.3 mg/dL [facility] Blood 01/08/2025 5:04 AM CDT 01/08/2025 5:32 AM CDT Killian Dumont MD LAB BLOOD ORDERABLES Final Result Performing Organization Address [facility]/ZIP Co de Phone Number [facility] [place] [address] * POCT glucose (01/08/2025 3:14 AM CDT) Glucose, POC 147 70 - 199 mg/dL Blood 01/08/2025 3:14 AM CDT 01/08/2025 3:14 AM CDT Killian Dumont MD LAB POCT ORDERABLES - MATEUS CE Final Result Performing Organization Address [facility] Co de Phone Number [facility] [place] [address] * Transfuse RBC (01/08/2025 2:50 AM CDT) Blood Killian Dumont MD BLOOD TRANSFUSION ORDERABL ES Final Result Performing Organization Address [facility] Co de Phone Number [facility] Department [place] [address] * Prepare RBC: 1 Units (01/08/2025 12:29 AM CDT) Product code [id number] Unit Number [id number] [facility] Product Blood Type OPOS [facility] Dispense Status PRESUMED TRANSFUSED [facility] Blood 01/08/2025 12:2 9 AM CDT 01/08/2025 12:31 AM CDT Narrative [facility] - 01/09/2025 12:55 AM CDT Are special requirements needed? (All products are leukoreduced and CMV- safe)- >No Date required:-[id number] [facility] # of [id number] Reasons:-Cardiovascular disease, Hgb <8 g/dL} Killian Dumont MD BLOOD BANK PRODUCT ORDERAB LES Final Result Performing Organization Address [facility] Co de Phone Number [facility] Department [place] [address] * Prepare RBC: 1 Units (01/08/2025 12:16 AM CDT) Product code [id number] Unit Number [id number] [facility] Product Blood Type OPOS [facility] Dispense Status PRESUMED TRANSFUSED [facility] Blood 01/08/2025 12:1 6 AM CDT 01/08/2025 12:16 AM CDT Narrative [facility] - 01/08/2025 4:00 PM CDT Are special requirements needed? (All products are leukoreduced and CMV- safe)- >No Date required:-[id number] [facility] # of [id number] Reasons:-Active bleeding, Hgb <8 g/dL} Killian Dumont MD BLOOD BANK PRODUCT ORDERAB LES Final Result Performing Organization Address City/[facility] Co de Phone Number [facility] Department [place] [address] * POCT glucose (01/07/2025 11:37 PM CDT) Glucose, POC 132 70 - 199 mg/dL Blood 01/07/2025 11:3 7 PM CDT 01/07/2025 11:37 PM CDT Killian Dumont MD LAB POCT ORDERABLES - MATEUS CE Final Result Performing Organization Address [facility] Co de Phone Number [facility] Department [place] [address] * Critical Care (01/07/2025 10:50 PM CDT) Narrative Kyleigh Back MD - 01/07/2025 10:50 PM CDT Kyleigh Back MD 01/08/2025 6:54 AM Critical Care Performed by: Kyleigh Back MD Authorized by: Kyleigh Back MD CRITICAL CARE: Team: SICU RED Shift: PM Level of Billing: Critical Care My time spent with this patient was 40 minutes: Critical Provider Statement: I have seen and examined the patient on this day of service. I have reviewed and confirmed the history, physical exam, laboratory and radiologic data as documented in the signed ICU note. I have reviewed and discussed my treatment plan with the ICU team and other medical/automotive consultant staff, making frequent assessments and decisions regarding this patient's complex medical care. Critical Care time was exclusive of time spent performing separately billed procedures, treating other patients, and teaching. This time was in addition to and separate from critical care provided by other practitioners in my group on this day of service. Critical Care was necessary to treat or prevent imminent or life-threatening deterioration of the following conditions: Acute pain/acute postoperative pain Acute respiratory insufficiency Acute kidney injury This time was spent by me doing the following: Serial bedside patient exams and Serial laboratory checks Acute pain control Active and frequent monitoring of intake/output and volumen status I spent time reviewing and interpreting data from bedside monitors, laboratory results, and imaging, I spent time documenting in the medical record and I spent time discussing the management of this critically ill patient with consultants and the medical staff us Kyleigh Back MD IN CLINIC/BEDSIDE ORDER BRINDA Final Result * (ABNORMAL) eGFR (01/07/2025 8:05 PM CDT) eGFR 22(L) >=60 mL/min/1. 73 m2 Comment: Interpretive Data Reference Interval Normal >/= 90 mL/min/1.73m2 Mildly decreased* 60 - 89 mL/min/1.73m2 Mildly to moderately decreased 45 - 59 mL/min/1.73m2 Moderately to severely decreased 30 - 44 mL/min/1.73m2 Severely decreased 15 - 29 mL/min/1.73m2 Kidney Failure < 15 mL/min/1.73m2 *Relative to young adult level Estimated glomerular filtration rate is determined by the 2020 CKD-EPI equation recommended by the National Kidney Foundation (A Unifying Approach to GFR Estimation: Recommendations of the NKF-ASK Task Force on Reassessing the Inclusion of Race in Diagnosing Kidney Disease, JASN 202). The CKD-EPI equation should not be used for patients with unstable renal function and has not been validated in children and those over 70. Current interpretive data was last reviewed 2021. Blood 01/07/2025 8:05 PM CDT 01/07/2025 8:34 PM CDT us Haylee Barrera ENVIRONMENTAL SERVICES ATTENDANT LAB BLOOD ORDERABL ES Final Result [facility] Department [place] [address] * (ABNORMAL) CBC without differential (01/07/2025 8:05 PM CDT) WBC 12.68(H) 3.80 - 9.90 K/cumm Hgb 7.2(L) 11.9 - 15.5 g/dL [facility] Hct 21.7(L) 35.6 - 45.5 % [facility] Plt 67(L) 150 - 400 K/cumm [facility] MPV 12.0 9.1 - 12.[address] [facility] RBC 2.52(L) 3.90 - 5.20 M/cumm [facility] MCV 86.1 81.3 - 96.[address] [facility] MCH 28.6 27.1 - 33.[address] [facility] MCHC 33.2 32.3 - 35.7 g/dL [facility] RDW CV 19.0(H) 11.1 - 14.9 % [facility] RDW SD 59.1(H) 35.7 - 48.[address] [facility] NRBC abs 0.02(H) 0.00 - 0.01 K/cumm [facility] Blood 01/07/2025 8:05 PM CDT 01/07/2025 8:35 PM CDT Killian Dumont MD LAB BLOOD ORDERABLES Final Result [facility] Department [place] [address] * (ABNORMAL) Phosphorus (01/07/2025 8:05 PM CDT) [facility] Phosphorus, pl 5.3(H) 2.3 - 4.5 mg/dL Blood 01/07/2025 8:05 PM CDT 01/07/2025 8:34 PM CDT Killian Dumont MD LAB BLOOD ORDERABLES Final Result [facility] [place] [address] * (ABNORMAL) Magnesium (01/07/2025 8:05 PM CDT) Magnesium 2.8(H) 1.4 - 2.5 mg/dL Blood 01/07/2025 8:05 PM CDT 01/07/2025 8:34 PM CDT us Killian Dumont MD LAB BLOOD ORDERABLES Final Result [facility] Department [place] [address] * (ABNORMAL) Comprehensive metabolic panel (01/07/2025 8:05 PM CDT) Pathologist [facility] Sodium 145 135 - 145 mmol/L Potassium, pl 4.2 3.3 - 4.9 mmol/L [facility] Chloride 111(H) 97 - 110 mmol/L [facility] CO2 24 22 - 32 mmol/L [facility] Anion gap 10 2 - 15 mmol/L [facility] BUN 47(H) 6 - 25 mg/dL [facility] Creatinine 2.34(H) 0.60 - 1.10 mg/dL [facility] Glucose 142 70 - 199 mg/dL [facility] Comment: Interpretive Data Fasting glucose >/= 126 mg/dl is diagnostic for diabetes. Fasting is defined as no caloric intake for at least 8 hours. Fasting glucose between 100 mg/dl to 125 mg/dl is diagnostic of prediabetes. In a patient with classic symptoms of hyperglycemia or hyperglycemic crisis, a random glucose >/= 200 mg/dl is diagnostic for diabetes. In the absence of unequivocal hyperglycemia, results should be confirmed by repeat testing. The classification and Diagnosis of Diabetes Diabetes Care 202; 46: S19-S40. Current interpretive data was last revised 2022. Calcium 7.8(L) 8.5 - 10.3 mg/dL [facility] Bilirubin, total 0.2 0.1 - 1.2 mg/dL [facility] Protein, pl 4.9(L) 6.5 - 8.5 g/dL [facility] Albumin 3.0(L) 3.5 - 5.0 g/dL [facility] Alk phos 63 40 - 130 Units/L [facility] ALT 441(H) 7 - 45 Units/L [facility] AST 794(H) 10 - 45 Units/L [facility] Blood 01/07/2025 8:05 PM CDT 01/07/2025 8:34 PM CDT Killian Dumont MD LAB BLOOD ORDERABLES Final Result Performing Organization Address [facility]/ZIP Co de Phone Number [facility] Department [place] [address] * POCT glucose (01/07/2025 7:20 PM CDT) [facility] Signature Glucose, POC 141 70 - 199 mg/dL Blood 01/07/2025 7:20 PM CDT 01/07/2025 7:20 PM CDT Killian Dumont MD LAB POCT ORDERABLES - MATEUS CE Final Result Performing Organization Address [facility] Co de Phone Number [facility] [place] [address] * X-ray chest 1 view (01/07/2025 4:36 PM CDT) Anatomical Region Laterality Modality Body, Chest N/A Digital Radiogra phy 01/07/2025 4:58 PM CDT Impressions 01/07/2025 4:58 PM CDT The current study is compared with the prior radiograph dated 01/06/2025. Right subclavian central catheter is tip overlying right atrium. Lumbar spine fixation rods partially imaged. The heart is mildly enlarged. Patchy bibasilar atelectasis is increased. There is no pneumothorax.. No definite effusions. Inferior most left costophrenic angle not completely imaged Electronically signed by: Kanchan Cat M.D. Narrative 01/07/2025 4:58 PM CDT EXAMINATION: 1 view chest radiograph Procedure Note Kanchan Cat MD - 01/07/2025 EXAMINATION: 1 view chest radiograph IMPRESSION: The current study is compared with the prior radiograph dated 01/06/2025. Right subclavian central catheter is tip overlying right atrium. Lumbar spine fixation rods partially imaged. The heart is mildly enlarged. Patchy bibasilar atelectasis is increased. There is no pneumothorax.. No definite effusions. Inferior most left costophrenic angle not completely imaged Electronically signed by: Kanchan Cat M.D. Killian Dumont MD IMG XR PROCEDURES Final Re sult * POCT glucose (01/07/2025 3:48 PM CDT) [facility] Glucose, POC 163 70 - 199 mg/dL Blood 01/07/2025 3:48 PM CDT 01/07/2025 3:48 PM CDT Killian Dumont MD LAB POCT ORDERABLES - MATEUS CE Final Result [facility] Department [place] [address] * (ABNORMAL) CBC without differential (01/07/2025 2:06 PM CDT) [facility] WBC 12.34(H) 3.80 - 9.90 K/cumm Hgb 7.7(L) 11.9 - 15.5 g/dL [facility] Hct 23.3(L) 35.6 - 45.5 % [facility] Plt 70(L) 150 - 400 K/cumm [facility] MPV 12.9(H) 9.1 - 12.[address] [facility] RBC 2.74(L) 3.90 - 5.20 M/cumm [facility] MCV 85.0 81.3 - 96.[address] [facility] MCH 28.1 27.1 - 33.[address] [facility] MCHC 33.0 32.3 - 35.7 g/dL [facility] RDW CV 18.9(H) 11.1 - 14.9 % [facility] RDW SD 58.3(H) 35.7 - 48.[address] [facility] NRBC abs 0.03(H) 0.00 - 0.01 K/cumm [facility] Blood 01/07/2025 2:06 PM CDT 01/07/2025 2:23 PM CDT Haylee Barrera NP LAB BLOOD ORDERABL ES Final Result Performing Organization Address City/[facility] Co de Phone Number [facility] Department [place] [address] * POCT glucose (01/07/2025 11:51 AM CDT) [facility] Signature Glucose, POC 159 70 - 199 mg/dL Blood 01/07/2025 11:5 1 AM CDT 01/07/2025 11:51 AM CDT us Killian Dumont MD LAB POCT ORDERABLES - MATEUS CE Final Result Performing Organization Address [facility] Co de Phone Number [facility] [place] [address] * Critical Care (01/07/2025 11:05 AM CDT) Narrative Rizwan Clifton MD - 01/07/2025 11:05 AM CDT Rizwan Clifton MD 01/07/2025 3:07 PM Critical Care Performed by: Rizwan Clifton MD Authorized by: Rizwan Clifton MD CRITICAL CARE: Team: SICU RED Shift: AM Level of Billing: Subsequent Hospital Visit Level 3 My time spent with this patient was 25 minutes: Critical Provider Statement: I have seen and examined the patient on this day of service. I have reviewed and confirmed the history, physical exam, laboratory, and radiographic data as documented in the ICU note. I have reviewed and discussed my treatment plan with the patient's team and other medical/automotive consultant staff. This time was in addition to and separate from care provided by other practitioners on this day of service. Acute pain/acute postoperative pain Hypovolemia Transaminitis Acute kidney injury and Hypo- or Hyperglycemia Thrombocytopenia This time was spent by me doing the following: Resuscitation with fluids Acute pain control Glycemic control I spent time reviewing and interpreting data from bedside monitors, laboratory results, and imaging, I spent time discussing the management of this critically ill patient with consultants and the medical staff and I spent time documenting in the medical record us Rizwan Clifton MD IN CLINIC/BEDSIDE ORDERABLES Fin al Result * POCT glucose (01/07/2025 8:25 AM CDT) Glucose, POC 181 70 - 199 mg/dL Comment:Glu2: RN/MD Notified Glucose comment 1 Glu2: RN/MD Notified [facility] Blood 01/07/2025 8:25 AM CDT 01/07/2025 8:25 AM CDT us Killian Dumont MD LAB POCT ORDERABLES - MATEUS CE Final Result [facility] Department [place] [address] * (ABNORMAL) eGFR (01/07/2025 4:05 AM CDT) eGFR 29(L) >=60 mL/min/1. 73 m2 Comment: Interpretive Data Reference Interval Normal >/= 90 mL/min/1.73m2 Mildly decreased* 60 - 89 mL/min/1.73m2 Mildly to moderately decreased 45 - 59 mL/min/1.73m2 Moderately to severely decreased 30 - 44 mL/min/1.73m2 Severely decreased 15 - 29 mL/min/1.73m2 Kidney Failure < 15 mL/min/1.73m2 *Relative to young adult level Estimated glomerular filtration rate is determined by the 2020 CKD-EPI equation recommended by the National Kidney Foundation (A Unifying Approach to GFR Estimation: Recommendations of the NKF-ASK Task Force on Reassessing the Inclusion of Race in Diagnosing Kidney Disease, JASN 2020). The CKD-EPI equation should not be used for patients with unstable renal function and has not been validated in children and those over 70. Current interpretive data was last reviewed 2021. Blood 01/07/2025 4:05 AM CDT 01/07/2025 4:18 AM CDT Killian Dumont MD LAB BLOOD ORDERABLES Final Result Performing Organization Address [facility] Co de Phone Number [facility] [place] [address] * (ABNORMAL) CBC without differential (01/07/2025 4:05 AM CDT) WBC 15.36(H) 3.80 - 9.90 K/cumm Hgb 9.2(L) 11.9 - 15.5 g/dL [facility] Hct 27.5(L) 35.6 - 45.5 % [facility] Plt 76(L) 150 - 400 K/cumm [facility] MPV 10.9 9.1 - 12.[address] [facility] RBC 3.21(L) 3.90 - 5.20 M/cumm [facility] MCV 85.7 81.3 - 96.[address] [facility] MCH 28.7 27.1 - 33.[address] [facility] MCHC 33.5 32.3 - 35.7 g/dL [facility] RDW CV 18.6(H) 11.1 - 14.9 % [facility] RDW SD 57.8(H) 35.7 - 48.[address] [facility] NRBC abs 0.02(H) 0.00 - 0.01 K/cumm [facility] Blood 01/07/2025 4:05 AM CDT 01/07/2025 4:12 AM CDT Killian Dumont MD LAB BLOOD ORDERABLES Final Result Performing Organization Address [facility] Co de Phone Number [facility] [place] [address] * (ABNORMAL) Phosphorus (01/07/2025 4:05 AM CDT) Phosphorus, pl 7.0(H) 2.3 - 4.5 mg/dL Blood 01/07/2025 4:05 AM CDT 01/07/2025 4:18 AM CDT Killian Dumont MD LAB BLOOD ORDERABLES Final Result Performing Organization Address City/[facility]/ZIP Co de Phone Number [facility] Department [place] [address] * (ABNORMAL) Magnesium (01/07/2025 4:05 AM CDT) Magnesium 2.7(H) 1.4 - 2.5 mg/dL Blood 01/07/2025 4:05 AM CDT 01/07/2025 4:18 AM CDT Killian Dumont MD LAB BLOOD ORDERABLES Final Result Performing Organization Address City/[facility] de Phone Number [facility] [place] [address] * (ABNORMAL) Hepatic function panel (01/07/2025 4:05 AM CDT) Bilirubin, total 0.6 0.1 - 1.2 mg/dL Bilirubin, direct 0.2 0.1 - 0.3 mg/dL [facility] Comment:Reviewed Protein, pl 5.5(L) 6.5 - 8.5 g/dL [facility] Albumin 3.5 3.5 - 5.0 g/dL [facility] Alk phos 64 40 - 130 Units/L [facility] ALT 690(H) 7 - 45 Units/L [facility] AST 926(H) 10 - 45 Units/L [facility] Blood 01/07/2025 4:05 AM CDT 01/07/2025 4:18 AM CDT Killian Dumont MD LAB BLOOD ORDERABLES Final Result [facility] Department [place] [address] * (ABNORMAL) Basic metabolic panel (01/07/2025 4:05 AM CDT) Sodium 144 135 - 145 mmol/L Potassium, pl 4.7 3.3 - 4.9 mmol/L [facility] Chloride 113(H) 97 - 110 mmol/L [facility] CO2 23 22 - 32 mmol/L [facility] Anion gap 8 2 - 15 mmol/L [facility] BUN 41(H) 6 - 25 mg/dL [facility] Creatinine 1.84(H) 0.60 - 1.10 mg/dL [facility] Glucose 202(H) 70 - 199 mg/dL [facility] Comment: Interpretive Data Fasting glucose >/= 126 mg/dl is diagnostic for diabetes. Fasting is defined as no caloric intake for at least 8 hours. Fasting glucose between 100 mg/dl to 125 mg/dl is diagnostic of prediabetes. In a patient with classic symptoms of hyperglycemia or hyperglycemic crisis, a random glucose >/= 200 mg/dl is diagnostic for diabetes. In the absence of unequivocal hyperglycemia, results should be confirmed by repeat testing. The classification and Diagnosis of Diabetes Diabetes Care 2021; 46: S19-S40. Current interpretive data was last revised 2022. Calcium 8.2(L) 8.5 - 10.3 mg/dL [facility] Blood 01/07/2025 4:05 AM CDT 01/07/2025 4:18 AM CDT Killian Dumont MD LAB BLOOD ORDERABLES Final Result Performing Organization Address City/[facility]/ZIP Co de Phone Number [facility] Department [place] [address] * POCT glucose (01/07/2025 3:09 AM CDT) Glucose, POC 185 70 - 199 mg/dL Blood 01/07/2025 3:09 AM CDT 01/07/2025 3:09 AM CDT Killian Dumont MD LAB POCT ORDERABLES - MATEUS CE Final Result Performing Organization Address [facility] Co de Phone Number [facility] [place] [address] * Transfuse platelets (01/07/2025 2:12 AM CDT) Blood Killian Dumont MD BLOOD TRANSFUSION ORDERABL ES Final Result Performing Organization Address [facility] Co de Phone Number [facility] [place] [address] * POCT glucose (01/06/2025 11:28 PM CDT) Glucose, POC 171 70 - 199 mg/dL Blood 01/06/2025 11:2 8 PM CDT 01/06/2025 11:28 PM CDT Killian Dumont MD LAB POCT ORDERABLES - MATEUS CE Final Result Performing Organization Address [facility] [place] [address] * Prepare platelets: 1 Units (01/06/2025 11:15 PM CDT) Product code [id number] Unit Number [id number]- W [facility] Product Blood Type OPOS [facility] Dispense Status PRESUMED TRANSFUSED [facility] Blood Venous blood specimen / Unknown 01/06/2025 11:15 PM CDT 01/06/2025 11:14 PM CDT Narrative [facility] - 01/07/2025 4:01 PM CDT Are special requirements needed? (all products are leukoreduced)->No Date required:-[id number] PLT # of Units:-1-Units Reasons:-Mild bleeding, plt < 50 K/cumm} us Killian Dumont MD BLOOD BANK PRODUCT ORDERAB LES Final Result [facility] Department [place] [address] * XR Chest 1 View (01/06/2025 11:12 PM CDT) Anatomical Region Laterality Modality Body, Chest N/A Digital Radiogra phy 01/07/2025 2:09 PM CDT Impressions 01/07/2025 2:54 PM CDT There are no prior chest radiographs for comparison. A right subclavian catheter is in place, tip overlies the superior vena cava. Lung volumes are small. Small right pleural effusion. There is no pneumothorax. The heart and mediastinal contours are normal. Dictated by: Manny Escobar M.D. The radiology attending physician has personally reviewed this study, and had reviewed and/or edited this written report and agrees with it. Electronically signed by: Soy Mcdowell M.D. Narrative 01/07/2025 2:54 PM CDT EXAMINATION: 1 view chest radiograph Procedure Note Soy Mcdowell MD - 01/07/2025 EXAMINATION: 1 view chest radiograph IMPRESSION: There are no prior chest radiographs for comparison. A right subclavian catheter is in place, tip overlies the superior vena cava. Lung volumes are small. Small right pleural effusion. There is no pneumothorax. The heart and mediastinal contours are normal. Dictated by: Manny Escobar M.D. The radiology attending physician has personally reviewed this study, and had reviewed and/or edited this written report and agrees with it. Electronically signed by: Soy Mcdowell M.D. us Killian Dumont MD IMG XR PROCEDURES Final Re sult * (ABNORMAL) POC Blood Gas and Chemistries, Arterial - (01/06/2025 9:44 PM CDT) [facility] pH, Art POC 7.25(L) 7.35 - 7.45 pCO2, Art POC 45 35 - 45 mmHg [facility] pO2, Art POC 108 83 - 108 mmHg [facility] Na, POC 144 135 - 145 mmol/L [facility] K POC 4.6 3.3 - 4.9 mmol/L [facility] Comment: Interpretive Data Not all point of care methods assess for hemolysis. Confirm with instrument and retest K+ if not consistent with clinical signs and symptoms. Current Interpretive Data was last revised on 2023. Cl, POC 112(H) 97 - 110 mmol/L [facility] Ionized Ca, POC 4.87 4.50 - 5.10 mg/dL [facility] Glucose, POC 196 70 - 199 mg/dL [facility] Lactate POC 4.0(C) 0.7 - 2.0 mmol/L [facility] SO2 (eber) arterial 100(H) 90 - 95 % [facility] Base excess, POC -7.3 mmol/L [facility] HCO3, Art POC 20 20 - 30 mmol/L [facility] Hct, POC 31.0(L) 36.3 - 45.3 % [facility] Total Hb, POC 10.4(L) 11.9 - 15.5 g/dL [facility] Blood 01/06/2025 9:44 PM CDT 01/06/2025 9:44 PM CDT Killian Dumont MD LAB POCT ORDERABLES - MATEUS CE Final Result Performing Organization Address [facility] Co de Phone Number [facility] Department [place] [address] * Immature platelet fraction (01/06/2025 9:38 PM CDT) Pathologist [facility] IPF 4.0 1.6 - 10.1 % Blood 01/06/2025 9:38 PM CDT 01/06/2025 10:06 PM CDT Killian Dumont MD LAB BLOOD ORDERABLES Final Result Performing Organization Address [facility]/ZIP Co de Phone Number [facility] [place] [address] * (ABNORMAL) eGFR (01/06/2025 9:38 PM CDT) eGFR 35(L) >=60 mL/min/1. 73 m2 Comment: Interpretive Data Reference Interval Normal >/= 90 mL/min/1.73m2 Mildly decreased* 60 - 89 mL/min/1.73m2 Mildly to moderately decreased 45 - 59 mL/min/1.73m2 Moderately to severely decreased 30 - 44 mL/min/1.73m2 Severely decreased 15 - 29 mL/min/1.73m2 Kidney Failure < 15 mL/min/1.73m2 *Relative to young adult level Estimated glomerular filtration rate is determined by the 2020 CKD-EPI equation recommended by the National Kidney Foundation (A Unifying Approach to GFR Estimation: Recommendations of the NKF-ASK Task Force on Reassessing the Inclusion of Race in Diagnosing Kidney Disease, JASN 2020). The CKD-EPI equation should not be used for patients with unstable renal function and has not been validated in children and those over 70. Current interpretive data was last reviewed 2021. Blood 01/06/2025 9:38 PM CDT 01/06/2025 9:55 PM CDT Killian Dumont MD LAB BLOOD ORDERABLES Final Result Performing Organization Address [facility] de Phone Number [facility] [place] [address] * aPTT (01/06/2025 9:38 PM CDT) aPTT 28 26 - 38 sec Comment: Interpretive Data Heparin therapeutic range: 66.0 - 100.0 seconds. Range based on correlation with therapeutic heparin activity range of 0.3 - 0.7 Units/mL. Current interpretive data was last revised on 2023. Blood 01/06/2025 9:38 PM CDT 01/06/2025 10:01 PM CDT Killian Dumont MD LAB BLOOD ORDERABLES Final Result [facility] [place] [address] * (ABNORMAL) Protime-INR (01/06/2025 9:38 PM CDT) Pathologist [facility] PT 14.6(H) 10.2 - 13.5 sec INR 1.30(H) 0.90 - 1.[address] [facility] Comment: Interpretive data Oral anticoagulant therapeutic ranges: Venous thromboembolism prophylaxis or treatment: 2.0-3.0 CARDIOLOGY Standard range: 2.0-3.0 High-intensity range: 2.5-3.5 Refer to indication-specific guidelines for appropriate target ranges for prosthetic heart valve replacement. Current interpretive data was last revised on 2019. Blood 01/06/2025 9:38 PM CDT 01/06/2025 10:01 PM CDT Killian Dumont MD LAB BLOOD ORDERABLES Final Result Performing Organization Address City/[facility]/ZIP Co de Phone Number [facility] Department [place] [address] * (ABNORMAL) CBC without differential (01/06/2025 9:38 PM CDT) WBC 14.68(H) 3.80 - 9.90 K/cumm Hgb 10.0(L) 11.9 - 15.5 g/dL [facility] Hct 30.3(L) 35.6 - 45.5 % [facility] Plt 44(C) 150 - 400 K/cumm [facility] Comment:Platelet count confi rmed by additional testing. Critical platelet count threshold determined by patient location: Outpatient:<50 K/cumm , Inpatient adults:<20 K/cumm , Inpatient pediatric:<25 K/cumm, BMT service:<10 K/cumm MPV 9.5 9.1 - 12.[address] [facility] RBC 3.46(L) 3.90 - 5.20 M/cumm [facility] MCV 87.6 81.3 - 96.[address] [facility] MCH 28.9 27.1 - 33.[address] [facility] MCHC 33.0 32.3 - 35.7 g/dL [facility] RDW CV 18.3(H) 11.1 - 14.9 % [facility] RDW SD 58.6(H) 35.7 - 48.[address] [facility] NRBC abs 0.02(H) 0.00 - 0.01 K/cumm [facility] Blood 01/06/2025 9:38 PM CDT 01/06/2025 9:55 PM CDT Killian Dumont MD LAB BLOOD ORDERABLES Final Result Performing Organization Address [facility] Co de Phone Number [facility] [place] [address] * (ABNORMAL) Phosphorus (01/06/2025 9:38 PM CDT) Phosphorus, pl 5.8(H) 2.3 - 4.5 mg/dL Blood 01/06/2025 9:38 PM CDT 01/06/2025 9:55 PM CDT Killian Dumont MD LAB BLOOD ORDERABLES Final Result Performing Organization Address City/[facility] Co de Phone Number [facility] [place] [address] * Magnesium (01/06/2025 9:38 PM CDT) Magnesium 1.6 1.4 - 2.5 mg/dL Blood 01/06/2025 9:38 PM CDT 01/06/2025 9:55 PM CDT Killian Dumont MD LAB BLOOD ORDERABLES Final Result Performing Organization Address [facility] Co de Phone Number [facility] Department [place] [address] * (ABNORMAL) Hepatic function panel (01/06/2025 9:38 PM CDT) Bilirubin, total 0.5 0.1 - 1.2 mg/dL Bilirubin, direct <0.2 0.1 - 0.3 mg/dL [facility] Protein, pl 5.4(L) 6.5 - 8.5 g/dL [facility] Albumin 3.7 3.5 - 5.0 g/dL [facility] Alk phos 52 40 - 130 Units/L [facility] ALT 389(H) 7 - 45 Units/L [facility] Comment:Repeated and Verifie d AST 463(H) 10 - 45 Units/L [facility] Comment:Repeated and Verifie d Blood 01/06/2025 9:38 PM CDT 01/06/2025 9:55 PM CDT Killian Dumont MD LAB BLOOD ORDERABLES Final Result Performing Organization Address [facility] de Phone Number [facility] Department [place] [address] * (ABNORMAL) Lipid panel (01/06/2025 9:38 PM CDT) Cholesterol 138 30 - 199 mg/dL Comment: Interpretive Data Ages < or = 19 years Acceptable: <170 mg/dL Borderline high: 170-199 mg/dL High: >or= 200 mg/dL Ages > or = 20 years Desirable: <200 mg/dL Borderline high: 200-239 mg/dL High: >or= 240 mg/dL Literature References: 1. Expert Panel on Integrated Guidelines for Cardiovascular Health and Risk Reduction in Children and Adolescents. Pediatrics 2011;128:S213 2. NCEP Expert Panel. Circulation 2004;110:227 Current Interpretive Data was last revised on 2017. Triglycerides 141 <=149 mg/dL [facility] Comment: Interpretive Data Ages < or = 9 years Acceptable: <75 mg/dL Borderline high: 75-99 mg/dL High: >or= 100 mg/dL Ages 10 to 20 years Acceptable: <90 mg/dL Borderline high: 90-129 mg/dL High: >or= 130 mg/dL Ages > or = 20 years Desirable: <150 mg/dL Borderline high: 150-199 mg/dL High: 200-499 mg/dL Very high: >or= 499 mg/dL Literature References: 1. Expert Panel on Integrated Guidelines for Cardiovascular Health and Risk Reduction in Children and Adolescents. Pediatrics 2011;128:S213 2. NCEP Expert Panel. Circulation 2004;110:227 Current Interpretive Data was last revised on 2017. HDL 28(L) >=40 mg/dL [facility] Comment: Interpretive Data Ages < or = 19 years Acceptable: >45 mg/dL Borderline low: 40-45 mg/dL Low: <40 mg/dL Ages > or = 20 years Desirable: >or= 60 mg/dL Low: <40 mg/dL Literature References: 1. Expert Panel on Integrated Guidelines for Cardiovascular Health and Risk Reduction in Children and Adolescents. Pediatrics 2011;128:S213 2. NCEP Expert Panel. Circulation 2004;110:227 Current Interpretive Data was last revised on 2017. LDL, calculated 85 <=129 mg/dL [facility] Comment: Interpretive Data Ages < or = 19 years Acceptable: <110 mg/dL Borderline high: 110-129 mg/dL High: >or= 130 mg/dL Ages > or = 20 years Optimal: <100 mg/dL Near optimal: 100-129 mg/dL Borderline high: 130-159 mg/dL High: >160 mg/dL Calculated using the Daniel LDL-C estimating equation. This equation was implemented on 2023. Prior to this date LDL-C was estimated using the Friedewald equation. Literature References: 1. Expert Panel on Integrated Guidelines for Cardiovascular Health and Risk Reduction in Children and Adolescents. Pediatrics 2011;128:S213 2. NCEP Expert Panel. Circulation 2004;110:227 3. Daniel Head al. MARZENA Cardiol. 2020 September 02;5(5):540-548. doi: 10.1001/jamacardio.2020.0013 Current Interpretive Data was last revised on 2023. Non-HDL Cholesterol 110 mg/dL [facility] Comment: Interpretive Data Ages < or = 19 years Acceptable: <120 mg/dL Borderline high: 120-144 mg/dL High: >145 mg/dL Ages > or = 20 years When triglycerides are >200 mg/dL, Non-HDL cholesterol is a secondary target of therapy with treatment goals that are 30 mg/dL greater than the LDL cholesterol target. Literature References: 1. Expert Panel on Integrated Guidelines for Cardiovascular Health and Risk Reduction in Children and Adolescents. Pediatrics 2011;128:S213 2. NCEP Expert Panel. Circulation 2004;110:227 Current Interpretive Data was last revised on 2017. Chol/HDL ratio [address] [facility] Blood 01/06/2025 9:38 PM CDT 01/06/2025 9:55 PM CDT Killian Dumont MD LAB BLOOD ORDERABLES Final Result [facility] Department [place] [address] * (ABNORMAL) Basic metabolic panel (01/06/2025 9:38 PM CDT) Sodium 145 135 - 145 mmol/L Potassium, pl 4.5 3.3 - 4.9 mmol/L [facility] Chloride 113(H) 97 - 110 mmol/L [facility] CO2 22 22 - 32 mmol/L [facility] Anion gap 10 2 - 15 mmol/L [facility] BUN 37(H) 6 - 25 mg/dL [facility] Creatinine 1.58(H) 0.60 - 1.10 mg/dL [facility] Glucose 190 70 - 199 mg/dL [facility] Comment: Interpretive Data Fasting glucose >/= 126 mg/dl is diagnostic for diabetes. Fasting is defined as no caloric intake for at least 8 hours. Fasting glucose between 100 mg/dl to 125 mg/dl is diagnostic of prediabetes. In a patient with classic symptoms of hyperglycemia or hyperglycemic crisis, a random glucose >/= 200 mg/dl is diagnostic for diabetes. In the absence of unequivocal hyperglycemia, results should be confirmed by repeat testing. The classification and Diagnosis of Diabetes Diabetes Care 2021; 46: S19-S40. Current interpretive data was last revised 2022. Calcium 8.5 8.5 - 10.3 mg/dL [facility] Blood 01/06/2025 9:38 PM CDT 01/06/2025 9:55 PM CDT Killian Dumont MD LAB BLOOD ORDERABLES Final Result [facility] [place] [address] * POCT glucose (01/06/2025 9:34 PM CDT) [facility] Glucose, POC 187 70 - 199 mg/dL Blood 01/06/2025 9:34 PM CDT 01/06/2025 9:34 PM CDT Killian Dumont MD LAB POCT ORDERABLES - MATEUS CE Final Result Performing Organization Address [facility] Co de Phone Number [facility] [place] [address] * Transfuse plasma (01/06/2025 7:49 PM CDT) Blood Bobby Meza MD BLOOD TRANSFUSION ORDERABLES Final Result [facility] [place] [address] * Transfuse RBC (01/06/2025 7:27 PM CDT) Blood Bobby Meza MD BLOOD TRANSFUSION ORDERABLES Final Result [facility] [place] [address] * (ABNORMAL) POC Blood Gas and Chemistries, Arterial - (01/06/2025 7:02 PM CDT) pH, Art POC 7.30(L) 7.35 - 7.45 pCO2, Art POC 35 35 - 45 mmHg [facility] pO2, Art POC 115(H) 83 - 108 mmHg [facility] Na, POC 143 135 - 145 mmol/L [facility] K POC 4.4 3.3 - 4.9 mmol/L [facility] Comment: Interpretive Data Not all point of care methods assess for hemolysis. Confirm with instrument and retest K+ if not consistent with clinical signs and symptoms. Current Interpretive Data was last revised on 2023. Cl, POC 116(H) 97 - 110 mmol/L [facility] Ionized Ca, POC 4.84 4.50 - 5.10 mg/dL [facility] Glucose, POC 195 70 - 199 mg/dL [facility] Lactate POC 4.8(C) 0.7 - 2.0 mmol/L [facility] SO2 (eber) arterial 99(H) 90 - 95 % [facility] Base excess, POC -8.4 mmol/L [facility] Hct, POC 28.0(L) 36.3 - 45.3 % [facility] Total Hb, POC 9.4(L) 11.9 - 15.5 g/dL [facility] Blood 01/06/2025 7:02 PM CDT 01/06/2025 7:02 PM CDT us Killian Dumont MD LAB POCT ORDERABLES - MATEUS CE Final Result [facility] [place] [address] * XR Spine Lumbar 2 or 3 Views (01/06/2025 6:10 PM CDT) Anatomical Region Laterality Modality Spine N/A Computed Radiogr aphy 01/07/2025 7:18 AM CDT Impressions 01/07/2025 7:18 AM CDT 1. Ongoing revision extension cemented posterior spinal fusion extending from likely T10 to pelvis Electronically signed by: Justyn Rodriguez MD, PHD Narrative 01/07/2025 7:18 AM CDT EXAMINATION: Lumbar spine 2 or 3 views; lumbar spine 2 or 3 views HISTORY: Lumbar spondylosis; flatback syndrome; revision instrumented posterior spinal fusion FINDINGS: 4 portable intraoperative radiographs followed by 4 portable intraoperative radiographs demonstrate ongoing revision and extension instrumented posterior spinal fusion now extending from likely T10 to the pelvis. Neural monitoring leads and overlying instrumentation is noted. Soft tissue gas is present. Procedure Note Justyn Rodriguez MD PhD - 01/07/2025 EXAMINATION: Lumbar spine 2 or 3 views; lumbar spine 2 or 3 views HISTORY: Lumbar spondylosis; flatback syndrome; revision instrumented posterior spinal fusion FINDINGS: 4 portable intraoperative radiographs followed by 4 portable intraoperative radiographs demonstrate ongoing revision and extension instrumented posterior spinal fusion now extending from likely T10 to the pelvis. Neural monitoring leads and overlying instrumentation is noted. Soft tissue gas is present. IMPRESSION: 1. Ongoing revision extension cemented posterior spinal fusion extending from likely T10 to pelvis Electronically signed by: Justyn Rodriguez MD, PHD us Killian Dumont MD IMG XR PROCEDURES Final Re sult * Transfuse RBC (01/06/2025 6:04 PM CDT) Blood Bobby Meza MD BLOOD TRANSFUSION ORDERABLES Final Result [facility] Department [place] [address] * (ABNORMAL) POC Blood Gas and Chemistries, Arterial - (01/06/2025 5:31 PM CDT) pH, Art POC 7.33(L) 7.35 - 7.45 pCO2, Art POC 33(L) 35 - [address] [facility] pO2, Art POC 144(H) 83 - [address] [facility] Na, POC 143 135 - 145 mmol/L [facility] K POC 4.4 3.3 - 4.9 mmol/L [facility] Comment: Interpretive Data Not all point of care methods assess for hemolysis. Confirm with instrument and retest K+ if not consistent with clinical signs and symptoms. Current Interpretive Data was last revised on 2023. Cl, POC 113(H) 97 - 110 mmol/L [facility] Ionized Ca, POC 5.55(H) 4.50 - 5.10 mg/dL [facility] Glucose, POC 227(H) 70 - 199 mg/dL [facility] Lactate POC 5.0(C) 0.7 - 2.0 mmol/L [facility] SO2 (eber) arterial 99(H) 90 - 95 % [facility] Base excess, POC -7.7 mmol/L [facility] Hct, POC 29.0(L) 36.3 - 45.3 % [facility] Total Hb, POC 9.8(L) 11.9 - 15.5 g/dL [facility] Blood 01/06/2025 5:31 PM CDT 01/06/2025 5:31 PM CDT us Killian Dumont MD LAB POCT ORDERABLES - MATEUS CE Final Result [facility] Department [place] [address] * XR Spine Lumbar 2 or 3 Views (01/06/2025 4:58 PM CDT) Anatomical Region Laterality Modality Spine N/A Computed Radiogr aphy 01/07/2025 7:18 AM CDT Impressions 01/07/2025 7:18 AM CDT 1. Ongoing revision extension cemented posterior spinal fusion extending from likely T10 to pelvis Electronically signed by: Justyn Rodriguez MD, PHD Narrative 01/07/2025 7:18 AM CDT EXAMINATION: Lumbar spine 2 or 3 views; lumbar spine 2 or 3 views HISTORY: Lumbar spondylosis; flatback syndrome; revision instrumented posterior spinal fusion FINDINGS: 4 portable intraoperative radiographs followed by 4 portable intraoperative radiographs demonstrate ongoing revision and extension instrumented posterior spinal fusion now extending from likely T10 to the pelvis. Neural monitoring leads and overlying instrumentation is noted. Soft tissue gas is present. Procedure Note Justyn Rodriguez MD PhD - 01/07/2025 EXAMINATION: Lumbar spine 2 or 3 views; lumbar spine 2 or 3 views HISTORY: Lumbar spondylosis; flatback syndrome; revision instrumented posterior spinal fusion FINDINGS: 4 portable intraoperative radiographs followed by 4 portable intraoperative radiographs demonstrate ongoing revision and extension instrumented posterior spinal fusion now extending from likely T10 to the pelvis. Neural monitoring leads and overlying instrumentation is noted. Soft tissue gas is present. IMPRESSION: 1. Ongoing revision extension cemented posterior spinal fusion extending from likely T10 to pelvis Electronically signed by: Justyn Rodriguez MD, PHD us Killian Dumont MD IMG XR PROCEDURES Final Re sult * Prepare plasma: 2 Units (01/06/2025 4:54 PM CDT) Product code [id number] Unit Number [id number] [facility] Product Blood Type ANEG [facility] Dispense Status PRESUMED TRANSFUSED [facility] Blood Venous blood specimen / Unknown 01/06/2025 4:54 PM CDT 01/06/2025 4:54 PM CDT Narrative [facility] - 01/07/2025 8:00 AM CDT Other indication->surgery Date required:-[id number] FFP # of Units:-2-Units Reasons:-Other (Specify)} us Bobby Meza MD BLOOD BANK PRODUCT ORDERABLES Final Result [facility] Department [place] [address] * Transfuse RBC (01/06/2025 4:51 PM CDT) Blood Bobby Meza MD BLOOD TRANSFUSION ORDERABLES Final Result [facility] Department [place] [address] * (ABNORMAL) POC Blood Gas and Chemistries, Arterial - (01/06/2025 4:26 PM CDT) pH, Art POC 7.34(L) 7.35 - 7.45 pCO2, Art POC 37 35 - 45 mmHg [facility] pO2, Art POC 146(H) 83 - 108 mmHg [facility] Na, POC 142 135 - 145 mmol/L [facility] K POC 4.7 3.3 - 4.9 mmol/L [facility] Comment: Interpretive Data Not all point of care methods assess for hemolysis. Confirm with instrument and retest K+ if not consistent with clinical signs and symptoms. Current Interpretive Data was last revised on 2023. Cl, POC 111(H) 97 - 110 mmol/L [facility] Ionized Ca, POC 4.15(L) 4.50 - 5.10 mg/dL [facility] Glucose, POC 267(H) 70 - 199 mg/dL [facility] Lactate POC 5.0(C) 0.7 - 2.0 mmol/L [facility] SO2 (eber) arterial 100(H) 90 - 95 % [facility] Base excess, POC -5.3 mmol/L [facility] Hct, POC 30.0(L) 36.3 - 45.3 % [facility] Total Hb, POC 9.9(L) 11.9 - 15.5 g/dL [facility] Blood 01/06/2025 4:26 PM CDT 01/06/2025 4:26 PM CDT us Killian Dumont MD LAB POCT ORDERABLES - MATEUS CE Final Result [facility] Department [place] [address] * Transfuse plasma (01/06/2025 4:06 PM CDT) Blood Bobby Meza MD BLOOD TRANSFUSION ORDERABLES Final Result Performing Organization Address [facility] Co de Phone Number [facility] [place] [address] * Transfuse RBC (01/06/2025 4:04 PM CDT) Blood Bobby Meza MD BLOOD TRANSFUSION ORDERABLES Edited Result - Final Performing Organization Address [facility] [place] [address] * Transfuse plasma (01/06/2025 3:20 PM CDT) Blood Bobby Meza MD BLOOD TRANSFUSION ORDERABLES Final Result Performing Organization Address [facility] de Phone Number [facility] [place] [address] * Transfuse RBC (01/06/2025 3:15 PM CDT) Blood Bobby Meza MD BLOOD TRANSFUSION ORDERABLES Edited Result - Final Performing Organization Address [facility] de Phone Number [facility] [place] [address] * (ABNORMAL) POC Blood Gas and Chemistries, Arterial - (01/06/2025 2:33 PM CDT) [facility] Signature pH, Art POC 7.32(L) 7.35 - 7.45 pCO2, Art POC 36 35 - [address] [facility] pO2, Art POC 156(H) 83 - [address] [facility] Na, POC 141 135 - 145 mmol/L [facility] K POC 4.5 3.3 - 4.9 mmol/L [facility] Comment: Interpretive Data Not all point of care methods assess for hemolysis. Confirm with instrument and retest K+ if not consistent with clinical signs and symptoms. Current Interpretive Data was last revised on 2023. Cl, POC 112(H) 97 - 110 mmol/L [facility] Ionized Ca, POC 5.01 4.50 - 5.10 mg/dL [facility] Glucose, POC 235(H) 70 - 199 mg/dL [facility] Lactate POC 4.4(C) 0.7 - 2.0 mmol/L [facility] SO2 (eber) arterial 99(H) 90 - 95 % [facility] Base excess, POC -6.9 mmol/L [facility] Hct, POC 28.0(L) 36.3 - 45.3 % [facility] Total Hb, POC 9.4(L) 11.9 - 15.5 g/dL [facility] Blood 01/06/2025 2:33 PM CDT 01/06/2025 2:33 PM CDT Killian Dumont MD LAB POCT ORDERABLES - MATEUS CE Final Result Performing Organization Address City/[facility]/ZIP Co de Phone Number [facility] Department [place] [address] * [place] Fluoroscopy < 1 Hour (01/06/2025 2:23 PM CDT) Narrative [facility] - 01/06/2025 2:23 PM CDT The images from this study are not interpreted by Radiology. Please refer to the physician's procedure / OR operative note. Killian Dumont MD IMG FLUOROSCOPY PROCEDURES Final Result [facility] * (ABNORMAL) POC Blood Gas and Chemistries, Arterial - (01/06/2025 12:31 PM CDT) pH, Art POC 7.28(L) 7.35 - 7.45 pCO2, Art POC 34(L) 35 - [address] [facility] pO2, Art POC 156(H) 83 - [address] [facility] Na, POC 141 135 - 145 mmol/L [facility] K POC 4.1 3.3 - 4.9 mmol/L [facility] Comment: Interpretive Data Not all point of care methods assess for hemolysis. Confirm with instrument and retest K+ if not consistent with clinical signs and symptoms. Current Interpretive Data was last revised on 2023. Cl, POC 114(H) 97 - 110 mmol/L [facility] Ionized Ca, POC 4.61 4.50 - 5.10 mg/dL [facility] Glucose, POC 250(H) 70 - 199 mg/dL [facility] Lactate POC 2.8(H) 0.7 - 2.0 mmol/L [facility] SO2 (eber) arterial 99(H) 90 - 95 % [facility] Base excess, POC -9.8 mmol/L [facility] Hct, POC 30.0(L) 36.3 - 45.3 % [facility] Total Hb, POC 10.1(L) 11.9 - 15.5 g/dL [facility] Blood 01/06/2025 12:3 1 PM CDT 01/06/2025 12:31 PM CDT us Killian Dumont MD LAB POCT ORDERABLES - MATEUS CE Final Result [facility] Department [place] [address] * XR Spine Lumbar 1 View (01/06/2025 11:17 AM CDT) Anatomical Region Laterality Modality Spine N/A Computed Radiogr aphy 01/06/2025 12:0 3 PM CDT Impressions 01/06/2025 12:03 PM CDT 1. In progress revision lumbar spinal fusion with pedicle screw at L2 Electronically signed by: Jan Mathew MD Narrative 01/06/2025 12:03 PM CDT EXAMINATION: XR SPINE LUMBAR 1 VIEW HISTORY: Spinal fusion FINDINGS: Single intraoperative crosstable lateral radiograph the lumbar spine is submitted for interpretation with comparison made to prior radiographs 12/28/2024. The submitted intraoperative radiograph demonstrates steps towards revision of the lumbar spinal fusion. There are bilateral pedicle screws from L3 to L5 and a new pedicle screw at the L2 level. Procedure Note Anne Marie Mathew MD - 01/06/2025 EXAMINATION: XR SPINE LUMBAR 1 VIEW HISTORY: Spinal fusion FINDINGS: Single intraoperative crosstable lateral radiograph the lumbar spine is submitted for interpretation with comparison made to prior radiographs 12/28/2024. The submitted intraoperative radiograph demonstrates steps towards revision of the lumbar spinal fusion. There are bilateral pedicle screws from L3 to L5 and a new pedicle screw at the L2 level. IMPRESSION: 1. In progress revision lumbar spinal fusion with pedicle screw at L2 Electronically signed by: Jan Mathew MD us Killian Dumont MD IMG XR PROCEDURES Final Re sult * CT AN PROCEDURE PLACEHOLDER (01/06/2025 10:49 AM CDT) Ruben Guerra RN - 01/06/2025 10:49 AM CDT Ruben Ramírez RN 01/06/2025 10:49 AM Peripheral IV Catheter Patient location: OR Staff: Supervising provider: Bobby Meza MD Placed by: Anesthesiologist: Bobby Meza MD Preprocedure prep: Prep solution: chlorhexadine PPE: gloves and provider hat/mask PIV line: Laterality: left Site: hand Catheter size: 16 g Technique: anatomical landmarks, direct visualization and palpatation Procedure details: good blood return and occlusive dressing applied Number of attempts: 1 Assessment: Events: patient tolerated procedure well with no complications us Bobby Meza MD ANESTHESIA ORDERAB LES Final Result * CT AN PROCEDURE PLACEHOLDER (01/06/2025 10:48 AM CDT) Ruben Guerra RN - 01/06/2025 10:48 AM CDT Ruben Ramírez RN 01/06/2025 10:48 AM Peripheral IV Catheter Patient location: OR Staff: Placed by: Anesthesiologist: Bobby Meza MD Other staff: Ruben Ramírez RN Preprocedure prep: Prep solution: chlorhexadine PPE: gloves and provider hat/mask PIV line: Laterality: right Site: hand Catheter size: 18 g Technique: anatomical landmarks, direct visualization and palpatation Procedure details: good blood return and occlusive dressing applied Number of attempts: 1 Assessment: Events: patient tolerated procedure well with no complications Bobby Meza MD ANESTHESIA ORDERAB LES Final Result * CT AN PROCEDURE PLACEHOLDER (01/06/2025 10:47 AM CDT) Narrative Ruben Ramírez RN - 01/06/2025 10:47 AM CDT Ruben Ramírez RN 01/06/2025 10:48 AM Arterial Line Patient location: OR Indication: continuous blood pressure monitoring and blood sampling needed Staff: Supervising provider: Bobby Meza MD Placed by: Other staff: Ruben Ramírez RN Procedure prep: Prep solution: chlorhexadine/alcohol Prep: provider hat/mask and sterile gloves Skin infiltrated with lidocaine 1%: yes Arterial line: Catheter size: 20 gauge Catheter length: 1 and 3/4 inch Catheter type: wire-guided catheter Seldinger technique: yes Laterality: right Site: radial artery Line secured: Tegaderm and tape Results: good waveform and good blood return Number of attempts: 1 Assessment: Events: patient tolerated procedure well with no complications Bobby Meza MD ANESTHESIA ORDERAB LES Final Result * Prepare plasma: 2 Units (01/06/2025 9:56 AM CDT) Pathologist [facility] Product code [id number] Unit Number [id number] [facility] Product Blood Type OPOS [facility] Dispense Status PRESUMED TRANSFUSED [facility] Product code [id number] [facility] Unit Number [id number] * [facility] Product Blood Type OPOS [facility] Dispense Status PRESUMED TRANSFUSED [facility] Blood Venous blood specimen / Unknown 01/06/2025 9:56 AM CDT 01/06/2025 9:57 AM CDT Narrative [facility] - 01/07/2025 12:56 AM CDT Date required:-[id number] FFP # of Units:-2-Units Reasons:-High risk of life threatening bleeding, INR Bobby Meza MD BLOOD BANK PRODUCT ORDERABLES Final Result Performing Organization Address [facility] de Phone Number [facility] [place] [address] * Prepare RBC: 4 Units (01/06/2025 9:56 AM CDT) Pathologist [facility] Product code [id number] [facility] Unit Number [id number] D [facility] Product Blood Type OPOS [facility] Dispense Status PRESUMED TRANSFUSED [facility] Product code [id number] [facility] Unit Number [id number] L [facility] Product Blood Type OPOS [facility] Dispense Status PRESUMED TRANSFUSED [facility] Product code [id number] Unit Number [id number] V [facility] Product Blood Type OPOS [facility] Dispense Status PRESUMED TRANSFUSED [facility] Product code [id number] [facility] Unit Number [id number] V [facility] Product Blood Type OPOS [facility] Dispense Status PRESUMED TRANSFUSED [facility] Blood 01/06/2025 9:56 AM CDT 01/06/2025 9:57 AM CDT Narrative [facility] - 01/07/2025 12:56 AM CDT Are special requirements needed? (All products are leukoreduced and CMV- safe)- >No Date required:-[id number] LRRBC # of [id number] Reasons:-Intra-op transfusion} Bobby Meza MD BLOOD BANK PRODUCT ORDERABLES Final Result Performing Organization Address [facility] Co de Phone Number [facility] [place] [address] * CT AN ELECTIVE ENDOTRACHEAL AIRWAY, CT AN PROCEDURE PLACEHOLDER (01/06/2025 9:47 AM CDT) Narrative Ruben Ramírez RN - 01/06/2025 9:47 AM CDT Ruben Ramírez RN 01/06/2025 9:48 AM Airway Patient location: OR Urgency: elective Indications for airway management: anesthesia Difficult airway: no Staff: Supervising provider: Bobby Meza MD Placed by: Other staff: Ruben Ramírez RN Emergent airway documentation: Risks and benefits discussed: yes Consent obtained: yes Consent given by: patient Airway prep: Preoxygenated: yes Patient position: sniffing Mask difficulty assessment: 0 - not attempted Spontaneous ventilation during airway: absent Sedation level during airway: GA Final airway details: Final airway type: endotracheal airway Tube type: ETT ETT size: 7.0 mm Cuffed: yes Technique used for successful ETT placement: video laryngoscopy Devices/Methods used in placement: stylet and cricoid pressure Insertion site: oral Blade type: Joyce Video blade type: Solis Blade size: 3 Cormack-Lehane (video): grade I - full view of glottis Initial cuff pressure: 28 cm H2O Cuff volume: 7 mL Cuff inflated with: air ETT to lips: 21 cm Placement verified by: auscultation and CO2 detection Airway secured with: silk tape Number of attempts: 1 Additional comments: Atraumatic intubation. Dentition as in preop. Bobby Meza MD ANESTHESIA ORDERAB LES Final Result * (ABNORMAL) POC Blood Gas and Chemistries, Arterial - (01/06/2025 9:39 AM CDT) pH, Art POC 7.25(L) 7.35 - 7.45 pCO2, Art POC 49(H) 35 - [address] [facility] pO2, Art POC 123(H) 83 - [address] [facility] Na, POC 140 135 - 145 mmol/L [facility] K POC 4.0 3.3 - 4.9 mmol/L [facility] Comment: Interpretive Data Not all point of care methods assess for hemolysis. Confirm with instrument and retest K+ if not consistent with clinical signs and symptoms. Current Interpretive Data was last revised on 2023. Cl, POC 111(H) 97 - 110 mmol/L [facility] Ionized Ca, POC 4.58 4.50 - 5.10 mg/dL [facility] Glucose, POC 181 70 - 199 mg/dL [facility] Lactate POC 2.3(H) 0.7 - 2.0 mmol/L [facility] SO2 (eber) arterial 100(H) 90 - 95 % [facility] Base excess, POC -5.9 mmol/L [facility] Hct, POC 39.0 36.3 - 45.3 % [facility] Total Hb, POC 13.1 11.9 - 15.5 g/dL [facility] Blood 01/06/2025 9:39 AM CDT 01/06/2025 9:39 AM CDT us Killian Dumont MD LAB POCT ORDERABLES - MATEUS CE Final Result Performing Organization Address City/[facility]/ZIP Co de Phone Number [facility] [place] [address] * Type and screen (01/06/2025 6:50 AM CDT) [facility] Maribell, indirect Negative ABO Rh O Positive [facility] Blood 01/06/2025 6:50 AM CDT 01/06/2025 7:07 AM CDT Narrative [facility] - 01/06/2025 8:03 AM CDT Has the patient had Daratumumab or Isatuximab in the past 6 months?->Unknown us Gonzalo Hsu NP LAB BLOOD BANK TEST JIN ESTRADA Final Result [facility] [place] [address] * Prepare RBC: 2 Units (01/06/2025 6:17 AM CDT) [facility] Product code [id number] Unit Number [id number] [facility] Product Blood Type OPOS [facility] Dispense Status PRESUMED TRANSFUSED [facility] Blood 01/06/2025 6:17 AM CDT 01/06/2025 6:17 AM CDT Narrative [facility] - 01/07/2025 8:00 AM CDT Specify Procedure:->[id number] Are special requirements needed? (All products are leukoreduced and CMV- safe)- >No Date required:-[id number] LRRBC # of [id number] Reasons:-Hold for procedure (specify procedure)} us Gonzalo Hsu NP BLOOD BANK PRODUCT ORDER BRINDA Final Result [facility] [place] [address] * IR Central Line Placement > 5 Years (01/05/2025 9:14 AM CDT) Anatomical Region Laterality Modality Body N/A Radio Fluoroscop y 01/05/2025 1:01 PM CDT Impressions 01/05/2025 1:01 PM CDT Successful nontunneled catheter placement. PLAN: The catheter is ready for immediate use. When treatment is completed, this catheter can be removed at the bedside according to standard hospital protocol. Electronically signed by: Margot Ramirez PA-C Narrative 01/05/2025 1:01 PM CDT EXAMINATION: NONTUNNELED CENTRAL VENOUS CATHETER PLACEMENT (STD) HISTORY: 69-year-old female presenting for central venous access prior to spine operation. Provider Presence: Margot Ramirez PA-C, PA-C, was present from the beginning to the end of the procedure. SEDATION: Conscious sedation was used for this procedure. TECHNIQUE: The risks, benefits and alternatives were discussed and informed consent was obtained. Prior to beginning the procedure, [place] Protocol was used to confirm the patient's identity and planned procedure. Fluoroscopy time has been recorded in the electronic medical record. Maximum sterile barriers including cap, mask, hand hygiene, sterile gloves, sterile gown, large sterile drape and 2% chlorhexidine for cutaneous antisepsis were used. The skin over the right subclavian vein was sterilely prepped, draped and infiltrated with 1% buffered lidocaine. Prior to the procedure, the target vessel was evaluated by ultrasound, an image of the patent vessel recorded, and this image placed in the patient's chart. After sterile prep, this vessel was accessed using realtime ultrasound guidance. A guidewire and catheter were then passed centrally using fluoroscopic guidance. The intravascular length from the access site to the right atrium was assessed. After dilating the tract, a triple lumen arrow catheter was inserted over the guidewire. The catheter was flushed with 100U/ml heparin and secured in place. A sterile dressing was applied. ESTIMATED BLOOD LOSS: less than 30 milliliters DISCHARGED TO: Recovery and then to home CONDITION: Stable FINDINGS: The final fluoroscopic image demonstrates the catheter with its tip at the cavoatrial junction. No complications are seen. Procedure Note Margot Ramirez PA - 01/05/2025 EXAMINATION: NONTUNNELED CENTRAL VENOUS CATHETER PLACEMENT (STD) HISTORY: 69-year-old female presenting for central venous access prior to spine operation. Provider Presence: Margot Ramirez PA-C, PA-C, was present from the beginning to the end of the procedure. SEDATION: Conscious sedation was used for this procedure. TECHNIQUE: The risks, benefits and alternatives were discussed and informed consent was obtained. Prior to beginning the procedure, [place] Protocol was used to confirm the patient's identity and planned procedure. Fluoroscopy time has been recorded in the electronic medical record. Maximum sterile barriers including cap, mask, hand hygiene, sterile gloves, sterile gown, large sterile drape and 2% chlorhexidine for cutaneous antisepsis were used. The skin over the right subclavian vein was sterilely prepped, draped and infiltrated with 1% buffered lidocaine. Prior to the procedure, the target vessel was evaluated by ultrasound, an image of the patent vessel recorded, and this image placed in the patient's chart. After sterile prep, this vessel was accessed using realtime ultrasound guidance. A guidewire and catheter were then passed centrally using fluoroscopic guidance. The intravascular length from the access site to the right atrium was assessed. After dilating the tract, a triple lumen arrow catheter was inserted over the guidewire. The catheter was flushed with 100U/ml heparin and secured in place. A sterile dressing was applied. ESTIMATED BLOOD LOSS: less than 30 milliliters DISCHARGED TO: Recovery and then to home CONDITION: Stable FINDINGS: The final fluoroscopic image demonstrates the catheter with its tip at the cavoatrial junction. No complications are seen. IMPRESSION: Successful nontunneled catheter placement. PLAN: The catheter is ready for immediate use. When treatment is completed, this catheter can be removed at the bedside according to standard hospital protocol. Electronically signed by: Margot Ramirez PA-C us Killian Dumont MD IMG IR PROCEDURES Final Re sult * XR Scoliosis 6 or More Views (12/29/2024 11:24 AM CDT) Anatomical Region Laterality Modality Spine N/A Digital Radiogra phy 12/29/2024 7:45 PM CDT Impressions 12/29/2024 7:45 PM CDT COMMENT: Portions of the lower cervical spine and upper thoracic spine are not well evaluated due to the density of the shoulders. 1. There is a levoconvex scoliosis with the apex at the L1. The Marina Angle was determined to be 22 degrees. 2. There is no evidence of a congenital vertebral body anomaly or significant compression deformity causing the scoliosis. 3. There appears to be fusion of the C4 and C5 vertebra. The C4 vertebra is not well seen on the lateral view. 4. Reversal of the normal thoracic kyphosis in the lower thoracic region. 5. Reversal of the normal lumbar lordosis in the upper lumbar spine. 6. Focal severe narrowing of the L2-L3 disc space anteriorly. 7. Transpedicular posterior fusion from L3 to L5. COMMENT: Please see above for additional findings. Electronically signed by: Sandip Harris M.D. Narrative 12/29/2024 7:45 PM CDT XR SCOLIOSIS 6 OR MORE VIEWS HISTORY: Flat back syndrome, fusion of the lumbar region Comparison: None available. FINDINGS: AP and lateral views of the cervical, thoracic and lumbosacral spines were provided. 7 cervical, 12 rib bearing thoracic vertebra and 5 [id number] lumbar vertebra are present. There is a levoconvex scoliosis with the apex at the L1. The Marina Angle was measured utilizing the inferior endplate of T12 and the inferior endplate of L4 and was determined to be 22 degrees. There is no evidence of a butterfly vertebra or hemivertebra or other congenital anomaly. There are no significant compression deformities which are the cause of the scoliosis. AP and lateral views of the cervical spine reveal that the cervical spine is not well seen below the mid C7 level. The patient's head is tilted to the right so that the profile of the 4th vertebral body is not well seen. There appears to be a fusion of the C4-C5 level. It is not well seen on the lateral view. There is slight anterolisthesis at the C5-C6 level. AP and lateral views of the thoracic spine reveal that the upper thoracic vertebra are not well seen. Reversal of the normal thoracic kyphosis is noted in the lower thoracic spine. AP and lateral views of the lumbar spine reveal transpedicular posterior fusion L3-L5. Reversal of the normal cervical lordosis is noted at L2-L3. There is focal severe narrowing of the anterior aspect of the L2-L3 intervertebral disc space with sclerosis. Flexion and extension views of the lumbar spine reveal no abnormal motion or instability. Additional The remainder the examination is within expected limits. Procedure Note Kimberly, Sandip Hartman MD - 12/29/2024 XR SCOLIOSIS 6 OR MORE VIEWS HISTORY: Flat back syndrome, fusion of the lumbar region Comparison: None available. FINDINGS: AP and lateral views of the cervical, thoracic and lumbosacral spines were provided. 7 cervical, 12 rib bearing thoracic vertebra and 5 [id number]-amo-[id number] lumbar vertebra are present. There is a levoconvex scoliosis with the apex at the L1. The Marina Angle was measured utilizing the inferior endplate of T12 and the inferior endplate of L4 and was determined to be 22 degrees. There is no evidence of a butterfly vertebra or hemivertebra or other congenital anomaly. There are no significant compression deformities which are the cause of the scoliosis. AP and lateral views of the cervical spine reveal that the cervical spine is not well seen below the mid C7 level. The patient's head is tilted to the right so that the profile of the 4th vertebral body is not well seen. There appears to be a fusion of the C4-C5 level. It is not well seen on the lateral view. There is slight anterolisthesis at the C5-C6 level. AP and lateral views of the thoracic spine reveal that the upper thoracic vertebra are not well seen. Reversal of the normal thoracic kyphosis is noted in the lower thoracic spine. AP and lateral views of the lumbar spine reveal transpedicular posterior fusion L3-L5. Reversal of the normal cervical lordosis is noted at L2-L3. There is focal severe narrowing of the anterior aspect of the L2-L3 intervertebral disc space with sclerosis. Flexion and extension views of the lumbar spine reveal no abnormal motion or instability. Additional The remainder the examination is within expected limits. IMPRESSION: COMMENT: Portions of the lower cervical spine and upper thoracic spine are not well evaluated due to the density of the shoulders. 1. There is a levoconvex scoliosis with the apex at the L1. The Marina Angle was determined to be 22 degrees. 2. There is no evidence of a congenital vertebral body anomaly or significant compression deformity causing the scoliosis. 3. There appears to be fusion of the C4 and C5 vertebra. The C4 vertebra is not well seen on the lateral view. 4. Reversal of the normal thoracic kyphosis in the lower thoracic region. 5. Reversal of the normal lumbar lordosis in the upper lumbar spine. 6. Focal severe narrowing of the L2-L3 disc space anteriorly. 7. Transpedicular posterior fusion from L3 to L5. COMMENT: Please see above for additional findings. Electronically signed by: Sandip Harris M.D. Killian Dumont MD IMG XR PROCEDURES Final Re sult * CT Lumbar Spine WO Contrast (12/29/2024 11:24 AM CDT) Anatomical Region Laterality Modality Spine N/A Digital RadioDestia phy 12/29/2024 12:1 6 PM CDT Impressions 12/29/2024 12:16 PM CDT 1. Status post L3-L5 posterior fusion. 2. Mild levo curvature along the lumbar spine. 3. Mild anterolisthesis and increased kyphosis at L2-3. Electronically signed by: Ilir Alexander M.D. Narrative 12/29/2024 12:[address] LUMBAR SPINE WO CONTRAST 12/28/2024 8:15 AM CLINICAL INDICATION: Fusion of lumbar spine. COMPARISON: Radiographs of the lumbar spine dated 12/28/2024. MRI lumbar spine dated 12/20/2024. TECHNIQUE: CT scan of the lumbar spine was performed without contrast using flat panel CT. Coronal and sagittal reformatted images were generated. Evaluation is slightly limited by technique and body habitus. FINDINGS: The patient is status post L3-L5 posterior fusion. The hardware is intact. There is mild levocurvature along the lumbar spine. There is mild anterolisthesis and slight increased kyphosis at L2-3. There is severe narrowing of the L2-3 intervertebral disc space. No compression deformity or acute osseous abnormality is identified. Neural foraminal narrowing is suspected on the left at L5-S1. Procedure Note Ilir Alexander MD - 12/29/2024 CT LUMBAR SPINE WO CONTRAST 12/28/2024 8:15 AM CLINICAL INDICATION: Fusion of lumbar spine. COMPARISON: Radiographs of the lumbar spine dated 12/28/2024. MRI lumbar spine dated 12/20/2024. TECHNIQUE: CT scan of the lumbar spine was performed without contrast using flat panel CT. Coronal and sagittal reformatted images were generated. Evaluation is slightly limited by technique and body habitus. FINDINGS: The patient is status post L3-L5 posterior fusion. The hardware is intact. There is mild levocurvature along the lumbar spine. There is mild anterolisthesis and slight increased kyphosis at L2-3. There is severe narrowing of the L2-3 intervertebral disc space. No compression deformity or acute osseous abnormality is identified. Neural foraminal narrowing is suspected on the left at L5-S1. IMPRESSION: 1. Status post L3-L5 posterior fusion. 2. Mild levo curvature along the lumbar spine. 3. Mild anterolisthesis and increased kyphosis at L2-3. Electronically signed by: Ilir Alexander M.D. Killian Dumont MD IM CT PROCEDURES Final Re sult * TYPE AND SCREEN 14 DAY (12/22/2024 3:33 PM CDT) ABO Rh O Positive Maribell, indirect Negative [facility] Blood 12/22/2024 3:33 PM CDT 12/22/2024 4:42 PM CDT Narrative BROO[facility] SHELDON - 12/22/2024 5:48 PM CDT Has the patient had Daratumumab or Isatuximab in the past 6 months?->Unknown Is this test being ordered in advance for a procedure?->Yes Expected date of procedure:->01/06/25 Has the patient been transfused in the past 3 months?->No Has the patient been in the past 3 months?->No us Gonzalo Hsu NP LAB BLOOD BANK TEST ORDE SEAN Final Result Performing Organization Address City/State/[facility] Co de Phone Number [facility]OO[facility]LD[facility] Department [place] [address] * (ABNORMAL) eGFR (12/22/2024 3:33 PM CDT) eGFR 50(L) >=60 mL/min/1. 73 m2 Comment: Interpretive Data Reference Interval Normal >/= 90 mL/min/1.73m2 Mildly decreased* 60 - 89 mL/min/1.73m2 Mildly to moderately decreased 45 - 59 mL/min/1.73m2 Moderately to severely decreased 30 - 44 mL/min/1.73m2 Severely decreased 15 - 29 mL/min/1.73m2 Kidney Failure < 15 mL/min/1.73m2 *Relative to young adult level Estimated glomerular filtration rate is determined by the 2020 CKD-EPI equation recommended by the National Kidney Foundation (A Unifying Approach to GFR Estimation: Recommendations of the NKF-ASK Task Force on Reassessing the Inclusion of Race in Diagnosing Kidney Disease, JASN 2020). The CKD-EPI equation should not be used for patients with unstable renal function and has not been validated in children and those over 70. Current interpretive data was last reviewed 2021. Blood 12/22/2024 3:33 PM CDT 12/22/2024 4:38 PM CDT us Killian Dumont MD LAB BLOOD ORDERABLES Final Result [facility] Department [place] [address] * Differential, auto (12/22/2024 3:33 PM CDT) Neutrophil abs 6.08 1.50 - 6.50 K/cumm Imm gran abs 0.07 0.00 - 0.10 K/cumm [facility] Lymphocyte abs 1.89 0.80 - 3.30 K/cumm [facility] Monocyte abs 0.65 0.20 - 0.80 K/cumm [facility] Eosinophil abs 0.07 0.00 - 0.50 K/cumm [facility] Basophil abs 0.03 0.00 - 0.10 K/cumm [facility] Neutrophil pct 69.2 % [facility] Comment: Interpretive Data Percent cell count reference ranges are not reported, since discordance with absolute values may lead to misinterpretation of CBC data. Current Interpretive Data was last revised on 2017. Imm gran pct 0.8 % [facility] Comment: Interpretive Data Percent cell count reference ranges are not reported, since discordance with absolute values may lead to misinterpretation of CBC data. Current Interpretive Data was last revised on 2017. Lymphocyte pct 21.5 % [facility] Comment: Interpretive Data Percent cell count reference ranges are not reported, since discordance with absolute values may lead to misinterpretation of CBC data. Current Interpretive Data was last revised on 2017. Monocyte pct 7.4 % [facility] Comment: Interpretive Data Percent cell count reference ranges are not reported, since discordance with absolute values may lead to misinterpretation of CBC data. Current Interpretive Data was last revised on 2017. Eosinophil pct 0.8 % [facility] Comment: Interpretive Data Percent cell count reference ranges are not reported, since discordance with absolute values may lead to misinterpretation of CBC data. Current Interpretive Data was last revised on 2017. Basophil pct 0.3 % [facility] Comment: Interpretive Data Percent cell count reference ranges are not reported, since discordance with absolute values may lead to misinterpretation of CBC data. Current Interpretive Data was last revised on 2017. Blood 12/22/2024 3:33 PM CDT 12/22/2024 4:38 PM CDT Killian Dumont MD LAB BLOOD ORDERABLES Final Result Performing Organization Address City/[facility]/ZIP Co de Phone Number [facility] Department [place] [address] * Urinalysis reflex to microscopic and culture Urine, bladder (12/22/2024 3:33 PM CDT) Color, ur Straw Yellow Clarity, ur Clear Clear [facility] Specific gravity, ur 1.011 1.003 - 1.[address] [facility] pH, urine 6.[address] [facility] Comment: Interpretive Data U rine pH is affected by diet, medications, systemic acid-base disturbances, and renal tubular function. pH may affect urinary stone formation. For example, urine pH below 6.0 may help reduce the tendency for calcium phosphate stones and pH greater than 6.0 may reduce the tendency for uric acid stone formation. Source: [facility] Current Interpretive Data was last revised on 2017 Protein, ur ql Negative Negative [facility] Glucose, ur ql Negative Negative [facility] Ketones, ur Negative Negative [facility] Bilirubin, ur Negative Negative [facility] Blood, ur Negative Negative [facility] Urobilinogen, ur <2.0 <2.0 mg/dL [facility] Nitrite, ur Negative Negative [facility] Leukocyte esterase, ur Negative Negative [facility] UA reflex comment Reflex conditions for microscopic UA and culture not met. [facility] Urine, bladder 12/22/2024 3: 33 PM CDT 12/22/2024 4:30 PM CDT us Killian Dumont MD LAB MICROBIOLOGY - GENERAL ORDERABLES Final Result Performing Organization Address City/[facility]/ZIP Co de Phone Number [facility] Department [place] [address] * CBC with auto differential (12/22/2024 3:33 PM CDT) [facility] WBC 8.79 3.80 - 9.90 K/cumm Hgb 14.4 11.9 - 15.5 g/dL [facility] Hct 43.2 35.6 - 45.5 % [facility] Plt 230 150 - 400 K/cumm [facility] MPV 10.1 9.1 - 12.[address] [facility] RBC 4.57 3.90 - 5.20 M/cumm [facility] MCV 94.5 81.3 - 96.[address] [facility] MCH 31.5 27.1 - 33.[address] [facility] MCHC 33.3 32.3 - 35.7 g/dL [facility] RDW CV 13.2 11.1 - 14.9 % [facility] RDW SD 45.9 35.7 - 48.[address] [facility] NRBC abs 0.00 0.00 - 0.01 K/cumm [facility] Blood 12/22/2024 3:33 PM CDT 12/22/2024 4:38 PM CDT us Killian Dumont MD LAB BLOOD ORDERABLES Final Result [facility] Department [place] [address] * Nicotine metabolite screen, urine (12/22/2024 3:33 PM CDT) [facility] Nicotine, ur <5.0 <5.0 ng/mL [place] [facility] Cotinine, ur <5.0 <5.0 ng/mL [facility] Anabasine ur <2.0 <2.0 ng/mL [facility] Comment: ADDITIONAL INFORMATION This test was developed and its performance characteristics determined by [facility] in a manner consistent with CLIA requirements. This test has not been cleared or approved by the U.S. Food and Drug Administration. Test Performed by: [facility] [address] [place] [address] Stock Shipper: Shae Calzada Ph.D.; CLIA# [id number] Nornicotine, ur <2.0 <2.0 ng/mL [facility] Urine 12/22/2024 3:3 3 PM CDT 12/22/2024 4:45 PM CDT Killian Dumont MD LAB URINE ORDERABLES Final Result Performing Organization Address City/[facility] [place] [address] [facility] * Vitamin D 25 hydroxy (12/22/2024 3:33 PM CDT) Vitamin D 25-OH 31 30 - 80 ng/mL Blood 12/22/2024 3:33 PM CDT 12/22/2024 4:38 PM CDT Killian Dumont MD LAB BLOOD ORDERABLES Final Result Performing Organization Address City/[facility] Co de Phone Number [facility] [place] [address] * Erythrocyte sedimentation rate (12/22/2024 3:33 PM CDT) Erythrocyte sedimentation rate 19 1 - 30 mm/hr Blood 12/22/2024 3:33 PM CDT 12/22/2024 4:38 PM CDT Killian Dumont MD LAB BLOOD ORDERABLES Final Result Performing Organization Address City/[facility] [place] [address] * CRP (acute phase) (12/22/2024 3:33 PM CDT) CRP 7.0 <=10.0 mg/L Blood 12/22/2024 3:33 PM CDT 12/22/2024 4:38 PM CDT Killian Dumont MD LAB BLOOD ORDERABLES Final Result Performing Organization Address [facility] de Phone Number [facility] [place] [address] * (ABNORMAL) Hemoglobin A1c (12/22/2024 3:33 PM CDT) Hgb A1C 6.7(H) 4.0 - 5.6 % Estimated Average Glucose 146 mg/dL [facility] Comment: The ADA recommends reporting an estimated Average Glucose (eAG) with all Hemoglobin A1c results using the equation derived from a study of 507 normal and diabetic adults. Minority populations were underrepresented and children were not included. (Diabetes Care 2020; 43(S1): S66-S76). The eAG is not equivalent to a fasting glucose. Blood 12/22/2024 3:33 PM CDT 12/22/2024 4:38 PM CDT Killian Dumont MD LAB BLOOD ORDERABLES Final Result Performing Organization Address [facility] [place] [address] * (ABNORMAL) Comprehensive metabolic panel (12/22/2024 3:33 PM CDT) Pathologist [facility] Sodium 141 135 - 145 mmol/L Potassium, pl 4.6 3.3 - 4.9 mmol/L [facility] Chloride 102 97 - 110 mmol/L [facility] CO2 28 22 - 32 mmol/L [facility] Anion gap 11 2 - 15 mmol/L [facility] BUN 33(H) 6 - 25 mg/dL [facility] Creatinine 1.16(H) 0.60 - 1.10 mg/dL [facility] Glucose 106 70 - 199 mg/dL [facility] Comment: Interpretive Data Fasting glucose >/= 126 mg/dl is diagnostic for diabetes. Fasting is defined as no caloric intake for at least 8 hours. Fasting glucose between 100 mg/dl to 125 mg/dl is diagnostic of prediabetes. In a patient with classic symptoms of hyperglycemia or hyperglycemic crisis, a random glucose >/= 200 mg/dl is diagnostic for diabetes. In the absence of unequivocal hyperglycemia, results should be confirmed by repeat testing. The classification and Diagnosis of Diabetes Diabetes Care 2021; 46: S19-S40. Current interpretive data was last revised 2022. Calcium 10.1 8.5 - 10.3 mg/dL [facility] Bilirubin, total 0.4 0.1 - 1.2 mg/dL [facility] Protein, pl 7.9 6.5 - 8.5 g/dL [facility] Albumin 4.4 3.5 - 5.0 g/dL [facility] Alk phos 93 40 - 130 Units/L [facility] ALT 18 7 - 45 Units/L [facility] AST 18 10 - 45 Units/L [facility] Blood 12/22/2024 3:33 PM CDT 12/22/2024 4:38 PM CDT us Killian Dumont MD LAB BLOOD ORDERABLES Final Result [facility] Department [place] [address] * XR Scoliosis 4 or 5 View (12/22/2024 11:50 AM CDT) Anatomical Region Laterality Modality Spine N/A Computed Radiogr aphy 12/22/2024 2:17 PM CDT Impressions 12/22/2024 2:59 PM CDT 1. Postsurgical changes of posterior instrumented fusion from L3 to L5. 2. Mild residual thoracolumbar levocurvature with mild right coronal truncal imbalance and mild positive sagittal truncal balance. Dictated by: Sarina Rowe M.D. The radiology attending physician has personally reviewed this study, and had reviewed and/or edited this written report and agrees with it. Electronically signed by: Killian Lunsford M.D. Narrative 12/22/2024 2:59 PM CDT EXAMINATION: XR SCOLIOSIS 4 OR 5 VW HISTORY: 69-year-old female with history of spinal fusion FINDINGS: 12 radiographs of the spine are provided for interpretation with comparison to 10/20/2024. Redemonstrated postsurgical changes of posterior instrumented fusion from L3 to L5. Instrumentation is intact. There is straightening of thoracic kyphosis. There is focal kyphosis at thoracolumbar junction. There is mild thoracolumbar levocurvature. There is mild right coronal truncal imbalance and mild positive sagittal truncal imbalance. The vertebral bodies are normal in height without compression fractures. There is mild to moderate degenerative disc disease throughout the nonfused segments of the spine, most prominent at L2-L3. Bilateral total hip arthroplasties are noted. Procedure Note Killian Lunsford MD - 12/22/2024 EXAMINATION: XR SCOLIOSIS 4 OR 5 VW HISTORY: 69-year-old female with history of spinal fusion FINDINGS: 12 radiographs of the spine are provided for interpretation with comparison to 10/20/2024. Redemonstrated postsurgical changes of posterior instrumented fusion from L3 to L5. Instrumentation is intact. There is straightening of thoracic kyphosis. There is focal kyphosis at thoracolumbar junction. There is mild thoracolumbar levocurvature. There is mild right coronal truncal imbalance and mild positive sagittal truncal imbalance. The vertebral bodies are normal in height without compression fractures. There is mild to moderate degenerative disc disease throughout the nonfused segments of the spine, most prominent at L2-L3. Bilateral total hip arthroplasties are noted. IMPRESSION: 1. Postsurgical changes of posterior instrumented fusion from L3 to L5. 2. Mild residual thoracolumbar levocurvature with mild right coronal truncal imbalance and mild positive sagittal truncal balance. Dictated by: Sarina Rowe M.D. The radiology attending physician has personally reviewed this study, and had reviewed and/or edited this written report and agrees with it. Electronically signed by: Killian Lunsford M.D. us Killian Dumont MD IMG XR PROCEDURES Final Re sult * MRI Lumbar Spine WO Contrast (12/20/2024 2:04 PM CDT) Anatomical Region Laterality Modality Spine N/A Magnetic Resonan ce 12/21/2024 9:25 AM CDT Narrative 12/21/2024 9:44 AM CDT EXAM DESCRIPTION: MRI THORACIC SPINE WO CONTRAST; MRI LUMBAR SPINE WO CONTRAST REASON FOR STUDY: Flatback syndrome, surgical planning Pt has chronic back pain for 10 years pt can not stand strait pt is getting mri to evaluate possibility of surgery history of L3 to L5 decompression and fusion ; Spinal stenosis, lumbar Pt has chronic back pain for 10 years pt can not stand strait pt is getting mri to evaluate possibility of surgery history of L3 to L5 decompression and fusion TECHNIQUE: Sagittal and Axial imaging includes T1, T2, STIR and gradient echo sequences. COMPARISON: Lumbar spine MRI from 09/13/2022. FINDINGS: Thoracic Spine: THORACIC ALIGNMENT: There is straightening of the normal thoracic kyphosis. There is 3 mm of T2 on T3 anterolisthesis and minimal C7 on T1 anterolisthesis. There is retrolisthesis of C6 on C7. Minimal T10 on T11 anterolisthesis. Go to cord no gross cord signal abnormality is seen. THORACIC VERTEBRAE: Vertebral body heights are normal and there is no MR evidence for recent fracture or ligamentous injury. A CT could be obtained if there is clinical concern for fracture. No suspicious marrow signal THORACIC DISCS: Multilevel degenerative disc disease, most pronounced and moderate at T2-T3 and mild at additional levels in the thoracic spine. THORACIC HARDWARE: None in the spine. THORACIC CORD: Normal in size and signal intensity. THORACIC DISCS T1-T12: There is multilevel disc bulging and multilevel facet osteoarthritis. Disc bulge and uncovering with facet arthropathy and mild ligamentum flavum thickening mildly narrows the spinal canal at T2-T3. Otherwise, no narrowing of the spinal canal. There is mild epidural lipomatosis in the lower thoracic spine.. Mild multilevel neural foraminal stenosis in the thoracic spine. THORACIC OTHER: Moderate to severe C6-C7 degenerative disc disease is noted . There is at least moderate spinal canal stenosis at C6-C7 which is not optimally assessed on the current protocol. Cervical spine MRI can be obtained for further evaluation. Lumbar Spine: LUMBAR ALIGNMENT: Straightening of the normal lumbar lordosis. LUMBAR VERTEBRAE: No evidence for recent fracture or ligamentous injury. No paravertebral soft tissue swelling. Small sclerotic focus at the inferior L1 vertebral body is nonspecific and unchanged from 2023. LUMBAR DISCS: Multilevel degenerative disc disease at the non fused levels, most pronounced and nxvm-me-hpjhitxj at L2-L3 . LUMBAR HARDWARE: L3-L5 posterior instrumented fusion with laminectomies LUMBAR CORD AND CONUS: Normal in size and signal intensity. Conus at the T12-L1 level. L1-2: Mild disc bulge. Mild facet arthropathy and ligamentum flavum thickening. Mild dorsal epidural lipomatosis. No significant neural foraminal stenosis. Mild spinal canal stenosis L2-3: Disc bulge. Severe bilateral facet arthropathy with facet joint effusions. Ligamentum flavum thickening. Epidural lipomatosis. Kjgy-in-pmtxtfgv right and ramg-qv-rohztpvo left neural foraminal stenosis. Moderate spinal canal stenosis L3-4: Postoperative level. Facet arthropathy no spinal canal stenosis. Neural foramina are not well assessed due to artifact but no obvious high-grade stenosis is seen. L4-5: Postoperative level. Facet arthropathy . No significant spinal canal stenosis. No high-grade neural foraminal stenosis L5-S1: Mild disc bulge and tiny central disc protrusion. Severe right and severe left facet arthropathy. Mild right and hoya-zu-ljqngukl left neural foraminal stenosis. No significant spinal canal stenosis LUMBAR OTHER: No other significant finding. SACRUM: Visualized upper sacrum intact. SOFT TISSUES: No soft tissue masses. OTHER: No other significant finding. IMPRESSION: 1. Multilevel thoracic degenerative disc and joint disease, most pronounced at T2-T3, where there is mild spinal canal stenosis. 2. Multilevel lumbar degenerative disc and joint disease, as detailed level by level above. There is moderate spinal canal stenosis at L2-L3 and mild spinal canal stenosis at L1-L2. 3. L3-L5 posterior instrumented fusion with laminectomies. 4. Moderate to severe C6-C7 degenerative disc disease with at least moderate spinal canal stenosis, not optimally assessed on the current protocol. Cervical spine MRI can be obtained for further evaluation. THIS IS AN ELECTRONICALLY VERIFIED FINAL REPORT 12/21/2024 9:44 AM - Electronically signed by Tonny Napier M.D. MZ: CRISTHIAN Report ID: [id number] Reading Location: [place] [id number] Procedure Note Tonny Napier MD - 12/21/2024 EXAM DESCRIPTION: MRI THORACIC SPINE WO CONTRAST; MRI LUMBAR SPINE WO CONTRAST REASON FOR STUDY: Flatback syndrome, surgical planning Pt has chronic back pain for 10 years pt can not stand strait pt isgetting mri to evaluate possibility of surgery history of L3 to L5 decompressionand fusion ; Spinal stenosis, lumbar Pt has chronic back pain for 10 years pt can not stand strait pt isgetting mri to evaluate possibility of surgery history of L3 to L5 decompressionand fusion TECHNIQUE: Sagittal and Axial imaging includes T1, T2, STIR and gradientecho sequences. COMPARISON: Lumbar spine MRI from 09/13/2022. FINDINGS: Thoracic Spine: THORACIC ALIGNMENT: There is straightening of the normal thoracickyphosis. There is 3 mm of T2 on T3 anterolisthesis and minimal C7 on T1 anterolisthesis. There is retrolisthesis of C6 on C7. Minimal T10 on T11 anterolisthesis. Go to cord no gross cord signal abnormality is seen. THORACIC VERTEBRAE: Vertebral body heights are normal and there is no MR evidence for recent fracture or ligamentous injury. A CT could beobtained if there is clinical concern for fracture. No suspicious marrow signal THORACIC DISCS: Multilevel degenerative disc disease, most pronouncedand moderate at T2-T3 and mild at additional levels in the thoracic spine. THORACIC HARDWARE: None in the spine. THORACIC CORD: Normal in size and signal intensity. THORACIC DISCS T1-T12: There is multilevel disc bulging and multilevelfacet osteoarthritis. Disc bulge and uncovering with facet arthropathy and mild ligamentum flavum thickening mildly narrows the spinal canal at T2-T3. Otherwise, no narrowing of the spinal canal. There is mild epidural lipomatosis in the lower thoracic spine.. Mild multilevel neuralforaminal stenosis in the thoracic spine. THORACIC OTHER: Moderate to severe C6-C7 degenerative disc disease isnoted . There is at least moderate spinal canal stenosis at C6-C7 which is not optimally assessed on the current protocol. Cervical spine MRI can be obtained for further evaluation. Lumbar Spine: LUMBAR ALIGNMENT: Straightening of the normal lumbar lordosis. LUMBAR VERTEBRAE: No evidence for recent fracture or ligamentous injury.No paravertebral soft tissue swelling. Small sclerotic focus at the inferiorL1 vertebral body is nonspecific and unchanged from 2023. LUMBAR DISCS: Multilevel degenerative disc disease at the non fusedlevels, most pronounced and jcgb-ve-inkfnxqw at L2-L3 . LUMBAR HARDWARE: L3-L5 posterior instrumented fusion with laminectomies LUMBAR CORD AND CONUS: Normal in size and signal intensity. Conus at the T12-L1 level. L1-2: Mild disc bulge. Mild facet arthropathy and ligamentum flavum thickening. Mild dorsal epidural lipomatosis. No significant neural foraminal stenosis. Mild spinal canal stenosis L2-3: Disc bulge. Severe bilateral facet arthropathy with facet joint effusions. Ligamentum flavum thickening. Epidural lipomatosis. Gqwa-xw-trdhnyfs right and jloo-go-xwhxlsnv left neural foraminalstenosis. Moderate spinal canal stenosis L3-4: Postoperative level. Facet arthropathy no spinal canal stenosis. Neural foramina are not well assessed due to artifact but no obvious high-grade stenosis is seen. L4-5: Postoperative level. Facet arthropathy . No significant spinalcanal stenosis. No high-grade neural foraminal stenosis L5-S1: Mild disc bulge and tiny central disc protrusion. Severe rightand severe left facet arthropathy. Mild right and aaoc-gn-wcetamip leftneural foraminal stenosis. No significant spinal canal stenosis LUMBAR OTHER: No other significant finding. SACRUM: Visualized upper sacrum intact. SOFT TISSUES: No soft tissue masses. OTHER: No other significant finding. IMPRESSION: 1. Multilevel thoracic degenerative disc and joint disease, mostpronounced at T2-T3, where there is mild spinal canal stenosis. 2. Multilevel lumbar degenerative disc and joint disease, as detailedlevel by level above. There is moderate spinal canal stenosis at L2-L3 and mild spinal canal stenosis at L1-L2. 3. L3-L5 posterior instrumented fusion with laminectomies. 4. Moderate to severe C6-C7 degenerative disc disease with at leastmoderate spinal canal stenosis, not optimally assessed on the current protocol. Cervical spine MRI can be obtained for further evaluation. THIS IS AN ELECTRONICALLY VERIFIED FINAL REPORT 12/21/2024 9:44 AM - Electronically signed by Tonny Napier M.D. MZ: CRISTHIAN Report ID: [id number] Reading Location: [place] [address] Killian Dumont MD IMG MRI PROCEDURES Final R esult * MRI Thoracic Spine WO Contrast (12/20/2024 1:53 PM CDT) Anatomical Region Laterality Modality Spine N/A Magnetic Resonan ce 12/21/2024 9:25 AM CDT Narrative 12/21/2024 9:44 AM CDT EXAM DESCRIPTION: MRI THORACIC SPINE WO CONTRAST; MRI LUMBAR SPINE WO CONTRAST REASON FOR STUDY: Flatback syndrome, surgical planning Pt has chronic back pain for 10 years pt can not stand strait pt is getting mri to evaluate possibility of surgery history of L3 to L5 decompression and fusion ; Spinal stenosis, lumbar Pt has chronic back pain for 10 years pt can not stand strait pt is getting mri to evaluate possibility of surgery history of L3 to L5 decompression and fusion TECHNIQUE: Sagittal and Axial imaging includes T1, T2, STIR and gradient echo sequences. COMPARISON: Lumbar spine MRI from 09/13/2022. FINDINGS: Thoracic Spine: THORACIC ALIGNMENT: There is straightening of the normal thoracic kyphosis. There is 3 mm of T2 on T3 anterolisthesis and minimal C7 on T1 anterolisthesis. There is retrolisthesis of C6 on C7. Minimal T10 on T11 anterolisthesis. Go to cord no gross cord signal abnormality is seen. THORACIC VERTEBRAE: Vertebral body heights are normal and there is no MR evidence for recent fracture or ligamentous injury. A CT could be obtained if there is clinical concern for fracture. No suspicious marrow signal THORACIC DISCS: Multilevel degenerative disc disease, most pronounced and moderate at T2-T3 and mild at additional levels in the thoracic spine. THORACIC HARDWARE: None in the spine. THORACIC CORD: Normal in size and signal intensity. THORACIC DISCS T1-T12: There is multilevel disc bulging and multilevel facet osteoarthritis. Disc bulge and uncovering with facet arthropathy and mild ligamentum flavum thickening mildly narrows the spinal canal at T2-T3. Otherwise, no narrowing of the spinal canal. There is mild epidural lipomatosis in the lower thoracic spine.. Mild multilevel neural foraminal stenosis in the thoracic spine. THORACIC OTHER: Moderate to severe C6-C7 degenerative disc disease is noted . There is at least moderate spinal canal stenosis at C6-C7 which is not optimally assessed on the current protocol. Cervical spine MRI can be obtained for further evaluation. Lumbar Spine: LUMBAR ALIGNMENT: Straightening of the normal lumbar lordosis. LUMBAR VERTEBRAE: No evidence for recent fracture or ligamentous injury. No paravertebral soft tissue swelling. Small sclerotic focus at the inferior L1 vertebral body is nonspecific and unchanged from 202. LUMBAR DISCS: Multilevel degenerative disc disease at the non fused levels, most pronounced and nhke-na-ztpvqakq at L2-L3 . LUMBAR HARDWARE: L3-L5 posterior instrumented fusion with laminectomies LUMBAR CORD AND CONUS: Normal in size and signal intensity. Conus at the T12-L1 level. L1-2: Mild disc bulge. Mild facet arthropathy and ligamentum flavum thickening. Mild dorsal epidural lipomatosis. No significant neural foraminal stenosis. Mild spinal canal stenosis L2-3: Disc bulge. Severe bilateral facet arthropathy with facet joint effusions. Ligamentum flavum thickening. Epidural lipomatosis. Gwxg-mx-xbjpgcsq right and rxks-us-ajbwmpcy left neural foraminal stenosis. Moderate spinal canal stenosis L3-4: Postoperative level. Facet arthropathy no spinal canal stenosis. Neural foramina are not well assessed due to artifact but no obvious high-grade stenosis is seen. L4-5: Postoperative level. Facet arthropathy . No significant spinal canal stenosis. No high-grade neural foraminal stenosis L5-S1: Mild disc bulge and tiny central disc protrusion. Severe right and severe left facet arthropathy. Mild right and vzet-tz-ghedyjto left neural foraminal stenosis. No significant spinal canal stenosis LUMBAR OTHER: No other significant finding. SACRUM: Visualized upper sacrum intact. SOFT TISSUES: No soft tissue masses. OTHER: No other significant finding. IMPRESSION: 1. Multilevel thoracic degenerative disc and joint disease, most pronounced at T2-T3, where there is mild spinal canal stenosis. 2. Multilevel lumbar degenerative disc and joint disease, as detailed level by level above. There is moderate spinal canal stenosis at L2-L3 and mild spinal canal stenosis at L1-L2. 3. L3-L5 posterior instrumented fusion with laminectomies. 4. Moderate to severe C6-C7 degenerative disc disease with at least moderate spinal canal stenosis, not optimally assessed on the current protocol. Cervical spine MRI can be obtained for further evaluation. THIS IS AN ELECTRONICALLY VERIFIED FINAL REPORT 12/21/2024 9:44 AM - Electronically signed by Tonny Napier M.D. MZ: CRISTHIAN Report ID: [id number] Reading Location: [id number] Procedure Note Tonny Napier MD - 12/21/2024 EXAM DESCRIPTION: MRI THORACIC SPINE WO CONTRAST; MRI LUMBAR SPINE WO CONTRAST REASON FOR STUDY: Flatback syndrome, surgical planning Pt has chronic back pain for 10 years pt can not stand strait pt isgetting mri to evaluate possibility of surgery history of L3 to L5 decompressionand fusion ; Spinal stenosis, lumbar Pt has chronic back pain for 10 years pt can not stand strait pt isgetting mri to evaluate possibility of surgery history of L3 to L5 decompressionand fusion TECHNIQUE: Sagittal and Axial imaging includes T1, T2, STIR and gradientecho sequences. COMPARISON: Lumbar spine MRI from 09/13/2022. FINDINGS: Thoracic Spine: THORACIC ALIGNMENT: There is straightening of the normal thoracickyphosis. There is 3 mm of T2 on T3 anterolisthesis and minimal C7 on T1 anterolisthesis. There is retrolisthesis of C6 on C7. Minimal T10 on T11 anterolisthesis. Go to cord no gross cord signal abnormality is seen. THORACIC VERTEBRAE: Vertebral body heights are normal and there is no MR evidence for recent fracture or ligamentous injury. A CT could beobtained if there is clinical concern for fracture. No suspicious marrow signal THORACIC DISCS: Multilevel degenerative disc disease, most pronouncedand moderate at T2-T3 and mild at additional levels in the thoracic spine. THORACIC HARDWARE: None in the spine. THORACIC CORD: Normal in size and signal intensity. THORACIC DISCS T1-T12: There is multilevel disc bulging and multilevelfacet osteoarthritis. Disc bulge and uncovering with facet arthropathy and mild ligamentum flavum thickening mildly narrows the spinal canal at T2-T3. Otherwise, no narrowing of the spinal canal. There is mild epidural lipomatosis in the lower thoracic spine.. Mild multilevel neuralforaminal stenosis in the thoracic spine. THORACIC OTHER: Moderate to severe C6-C7 degenerative disc disease isnoted . There is at least moderate spinal canal stenosis at C6-C7 which is not optimally assessed on the current protocol. Cervical spine MRI can be obtained for further evaluation. Lumbar Spine: LUMBAR ALIGNMENT: Straightening of the normal lumbar lordosis. LUMBAR VERTEBRAE: No evidence for recent fracture or ligamentous injury.No paravertebral soft tissue swelling. Small sclerotic focus at the inferiorL1 vertebral body is nonspecific and unchanged from 2023. LUMBAR DISCS: Multilevel degenerative disc disease at the non fusedlevels, most pronounced and xckw-nk-yymcewnn at L2-L3 . LUMBAR HARDWARE: L3-L5 posterior instrumented fusion with laminectomies LUMBAR CORD AND CONUS: Normal in size and signal intensity. Conus at the T12-L1 level. L1-2: Mild disc bulge. Mild facet arthropathy and ligamentum flavum thickening. Mild dorsal epidural lipomatosis. No significant neural foraminal stenosis. Mild spinal canal stenosis L2-3: Disc bulge. Severe bilateral facet arthropathy with facet joint effusions. Ligamentum flavum thickening. Epidural lipomatosis. Sjyt-ru-vxmonfdy right and ksuh-at-oipeglhs left neural foraminalstenosis. Moderate spinal canal stenosis L3-4: Postoperative level. Facet arthropathy no spinal canal stenosis. Neural foramina are not well assessed due to artifact but no obvious high-grade stenosis is seen. L4-5: Postoperative level. Facet arthropathy . No significant spinalcanal stenosis. No high-grade neural foraminal stenosis L5-S1: Mild disc bulge and tiny central disc protrusion. Severe rightand severe left facet arthropathy. Mild right and rxoi-lw-qwncldvb leftneural foraminal stenosis. No significant spinal canal stenosis LUMBAR OTHER: No other significant finding. SACRUM: Visualized upper sacrum intact. SOFT TISSUES: No soft tissue masses. OTHER: No other significant finding. IMPRESSION: 1. Multilevel thoracic degenerative disc and joint disease, mostpronounced at T2-T3, where there is mild spinal canal stenosis. 2. Multilevel lumbar degenerative disc and joint disease, as detailedlevel by level above. There is moderate spinal canal stenosis at L2-L3 and mild spinal canal stenosis at L1-L2. 3. L3-L5 posterior instrumented fusion with laminectomies. 4. Moderate to severe C6-C7 degenerative disc disease with at leastmoderate spinal canal stenosis, not optimally assessed on the current protocol. Cervical spine MRI can be obtained for further evaluation. THIS IS AN ELECTRONICALLY VERIFIED FINAL REPORT 12/21/2024 9:44 AM - Electronically signed by Tonny Napier M.D. MZ: CRISTHIAN Report ID: [id number] Reading Location: [place] [address] Killian Dumont MD IMG MRI PROCEDURES Final R esult * CT Lumbar Spine WO Contrast (12/20/2024 12:42 PM CDT) Anatomical Region Laterality Modality Spine N/A Computed Tomogra phy 12/28/2024 11:3 1 AM CDT Narrative 12/28/2024 11:35 AM CDT EXAM DESCRIPTION: CT LUMBAR SPINE WO CONTRAST REASON FOR STUDY: Low back pain of unspecified duration. No provided history of radiculopathy. No provided history of trauma or inciting and/or aggravating events. No provided past medical or surgical history. TECHNIQUE: Axial images acquired through the lumbar spine without intravenous contrast. Reconstructed coronal and sagittal MPR images reviewed. All images stored on PACS. Automated exposure control was used as a dose optimization technique for this examination. COMPARISON: Scoliosis radiographic series 12/22/2024, 10/20/2024, and 04/21/2024; MRI thoracic/lumbar spine without contrast 12/20/2024; lumbar spine radiograph 06/18/2023 FINDINGS: SEGMENTATION: No lumbosacral transitional anatomy. The lowest fully formed intervertebral disc level is labeled L5-S1. ALIGNMENT: Alignment and curvature unchanged. VERTEBRAE: Diffuse osteopenia. No acute fracture. Vertebral body heights unchanged. Spondylosis. DISC HEIGHT: Of the non fused intervertebral disc levels, multilevel variable vacuum disc phenomenon, intervertebral disc desiccation, and loss of intervertebral disc height. HARDWARE: Redemonstration of postsurgical changes pursuant to posterior instrumented spinal fusion L3-L5 with posterior decompressions. Intact hardware in unchanged alignment without evidence of loosening. INDIVIDUAL DISC LEVELS: No spinal canal stenosis. No high-grade osseous neural foraminal stenosis VISUALIZED RIBS: No acute fracture. SOFT TISSUES: No acute abnormality. OTHER: No other significant finding. IMPRESSION: 1. CT re-evaluation of the postsurgical lumbar spine as above. 2. Please reference MRI lumbar spine performed immediately subsequent to this study for further evaluation. THIS IS AN ELECTRONICALLY VERIFIED FINAL REPORT 12/28/2024 11:35 AM - Electronically signed by Hilario Villanueva M.D. JOSE EDUARDO: JOSE EDUARDO Report ID: [id number] Reading Location: [id number] Procedure Note Hilario Villanueva MD - 12/28/2024 EXAM DESCRIPTION: CT LUMBAR SPINE WO CONTRAST REASON FOR STUDY: Low back pain of unspecified duration. No providedhistory of radiculopathy. No provided history of trauma or inciting and/or aggravating events. No provided past medical or surgical history. TECHNIQUE: Axial images acquired through the lumbar spine withoutintravenous contrast. Reconstructed coronal and sagittal MPR images reviewed. Allimages stored on PACS. Automated exposure control was used as a dose optimization technique forthis examination. COMPARISON: Scoliosis radiographic series 12/22/2024, 10/20/2024, and 04/21/2024; MRI thoracic/lumbar spine without contrast 12/20/2024; lumbar spine radiograph 06/18/2023 FINDINGS: SEGMENTATION: No lumbosacral transitional anatomy. The lowest fullyformed intervertebral disc level is labeled L5-S1. ALIGNMENT: Alignment and curvature unchanged. VERTEBRAE: Diffuse osteopenia. No acute fracture. Vertebral bodyheights unchanged. Spondylosis. DISC HEIGHT: Of the non fused intervertebral disc levels, multilevel variable vacuum disc phenomenon, intervertebral disc desiccation, and lossof intervertebral disc height. HARDWARE: Redemonstration of postsurgical changes pursuant to posterior instrumented spinal fusion L3-L5 with posterior decompressions. Intact hardware in unchanged alignment without evidence of loosening. INDIVIDUAL DISC LEVELS: No spinal canal stenosis. No high-grade osseous neural foraminal stenosis VISUALIZED RIBS: No acute fracture. SOFT TISSUES: No acute abnormality. OTHER: No other significant finding. IMPRESSION: 1. CT re-evaluation of the postsurgical lumbar spine as above. 2. Please reference MRI lumbar spine performed immediately subsequent to this study for further evaluation. THIS IS AN ELECTRONICALLY VERIFIED FINAL REPORT 12/28/2024 11:35 AM - Electronically signed by Hilario Villanueva M.D. JOSE EDUARDO: JOSE EDUARDO Report ID: [id number] Reading Location: [id number] Killian Dumont MD IMG CT PROCEDURES Final Re sult * Dexa TBS Axial Skeleton Bone Density 1 or more sites (08/27/2024 2:37 PM CDT) Anatomical Region Laterality Modality Wrist, Body N/A Radiographic Joseline ging Narrative 08/27/2024 4:58 PM CDT Patient Name: Evelyn Gil Date of : 1955 Date of scan: 08/27/2024 Bone mineral density was performed on a [employer] Densitometer. Based on machine cross-calibration and precision studies the least significant changes of this densitometer is 0.024 g/cm2 at the spine, 0.020 g/cm2 at the total proximal femur, and 0.014g/cm2 at the forearm. HISTORY: This is a 69 y.o. postmenopausal female with a history of thyroid disease. She reports that she has never smoked. She has never used smokeless tobacco. Currently on treatment with thyroid hormone and current complaint of back pain and leg pain. INDICATIONS: Menopause status. FINDINGS: BONE MINERAL DENSITY OF THE FOREARM Bone Mineral density (BMD) of the right proximal 1/3 of the radius measures 0.797 gm/cm2. This corresponds to a T-score (standard deviations from the mean of young adults) of 1.7. There is no previous study available for comparison. A forearm bone density study was performed instead of a spine and hip study due to bilateral hip replacements, presence of surgical hardware, and history of spinal surgery. SUMMARY: Bone mineral density is near the young adult normal mean with no increased risk for fracture. The lumbar spine Trabecular Bone Score TBS was not obtained due to the bone mineral density of the spine not being acquired. ADDITIONAL COMMENTS: Postmenopausal Women and Men Over 50: Diagnostic criteria: Osteoporosis: BMD at or below -2.5 T-score; Osteopenia (low bone mass): BMD between -1.0 and -2.5 T-score. If the patient has a history of a fragility fracture, a fracture that occurred with trauma equivalent to a fall from a standing position or less, then the diagnosis is osteoporosis regardless of bone density. The history and data sections of the bone mineral density scan were prepared by Taya Espinosa) CBDT who is accredited by the International Society of Clinical Densitometry. The overall patient assessment and scan interpretation were performed by Rocío Elkins M.D. who is certified by the International Society of Clinical Densitometry. [id number] Killian Dumont MD IMG DXA PROCEDURES Final R esult * Screening Mammogram Bilateral W Med (07/15/2024 12:32 PM CDT) Anatomical Region Laterality Modality Breast Bilateral Mammography Narrative 07/16/2024 1:55 PM CDT Mammogram Technique: Bilateral Digital Breast Tomosynthesis, Bilateral C-view 2D Screening mammogram. Views obtained: bilateral craniocaudal and bilateral mediolateral oblique. Computer Aided Detection was performed. Mammogram Findings: The present examination has been compared to prior imaging studies performed at [facility] on 01/11/2021, 02/22/2022 and 07/15/2023. The breasts are almost entirely fatty. There is no suspicious abnormality in either breast. There are no significant changes from the prior study. Impression: There is no mammographic evidence of malignancy. Annual screening mammography is recommended. OVERALL FINAL ASSESSMENT: BI-RADS CATEGORY 1: Negative. Procedure Note Ana Maria Rome MD - 07/16/2024 Mammogram Technique: Bilateral Digital Breast Tomosynthesis, Bilateral C-view 2D Screening mammogram. Views obtained: bilateral craniocaudal and bilateral mediolateral oblique. Computer Aided Detection was performed. Mammogram Findings: The present examination has been compared to prior imaging studies performed at [facility] on 01/11/2021, 02/22/2022 and 07/15/2023. The breasts are almost entirely fatty. There is no suspicious abnormality in either breast. There are no significant changes from the prior study. Impression: There is no mammographic evidence of malignancy. Annual screening mammography is recommended. OVERALL FINAL ASSESSMENT: BI-RADS CATEGORY 1: Negative. us Self Screening Mammogram IMG MAMMO PROCEDURES Fi nal Result * COLONOSCOPY (02/02/2013 12:00 AM CDT) Anatomical Region Laterality Modality Other Narrative 02/02/2013 12:00 AM CDT Ordered by an unspecified provider. Procedure Note Provider, MD Bev - 02/02/2013 12:00 AM CDT PROCEDURE REPORT Patient: EVELYN GIL Account: [id number] Room No: : 1955 Patient Type: [facility] Attend.: Manny Rivera M.D. Admit Date: 02/02/2013 Dict.: Manny Rivera M.D. Disch. Date: NAME OF PROCEDURE: Colonoscopy. DATE OF PROCEDURE: 02/02/13. HISTORY: 58-year-old female who presents for a screening colonoscopy. PHYSICAL EXAMINATION: Well-developed female. Lungs are clear.Cardiovascular exam is unremarkable. PROCEDURE: Colonoscopy was performed with the Olympus video endoscope.The patient was premedicated by anesthesia. On digital exam, she has grade2 hemorrhoids. We inserted the endoscope and advanced it to the cecum. Thecolon was well prepped and visualized. We carefully searched the colonic mucosaand could find no evidence of inflammation or neoplasia anywhere through thelength of the bowel. The patient tolerated the procedure without difficulty. POSTOPERATIVE DIAGNOSIS: Hemorrhoidal disease, otherwise normal. PLAN: Surveillance in 10 years. Manny Rivera M.D. DR/ TD: 02/02/2013 11:02 CC: Dr. Killian Sousa Authenticated by Manny Rivera MD On 02/04/2013 10:22:42 AM Historical Provider ENDOSCOPY PROCEDURES Renee l Result from Last 3 Months or Most Recently Relevant to Health Maintenance Insurance MEDICARE [facility] MDCR HMO REF Member Subscriber Plan / Payer (Ef fective 2021-Present) Name:Evelyn Gil Relation to Subscriber:Self Name:Evelyn Gil Payer ID:[id number] (NAIC) Type:UHC MEDICARE Address: [place] [id number] [place] [id number] UHC MEDICARE ADVANTAGE Member Subscriber Plan / Payer (Ef fective 2021-Present) Name:Evelyn Gil Relation to Subscriber:Self Name:Evelyn Gil Payer ID:[id number] (NAIC) Type:UHC MEDICARE Address: [place] [id number] [place] [id number] [facility] MEDICARE ADVANTAGE [facility] Address: [facility] [address] [place] [address] [facility] MEDICARE ADVANTAGE [facility] MEDICARE Address: [facility] [address] [place] [address] Advance Directives For more information, please contact: [phone] * Full Code (Latest Code Status on File) Date Activated Date Inactivated Comments 01/09/2025 5:43 PM 01/14/2025 10:35 PM * Full Code Date Activated Date Inactivated Comments 01/06/2025 9:38 PM 01/09/2025 5:43 PM * Full Code Date Activated Date Inactivated Comments 01/05/2025 7:51 AM 01/06/2025 5:13 AM * Full Code Date Activated Date Inactivated Comments 10/08/2022 2:07 PM 10/11/2022 8:50 PM Care Teams [employer] Teacher Relationship Specialty Start Date End Date Carlos Ramesh MD PCP - General Internal Medicine 12/29/20 Shahnaz Simpson NP Nurse Practitioner Nurse Practitioner 03/01/21
--- OUTSIDE RECORDS SUMMARY | 2025-02-13 06:38 | XMS_ITS | Clinical Summary ---
Author Organization [facility] Address [address] [place] [id number] Care Team Providers Care Furniture Manager Name Role Phone Unavailable Primary Care Provider Unavailabl e Social History Tobacco Use Types Packs/Day Years Used Date Smoking Tobacco: Never Assessed Comments Unknown Sex and Gender Information Value Date Recorded Sex Assigned at Not on file Legal Sex Female 12:50 PM CDT Gender Identity Not on file Sexual Orientation Not on file Plan of Treatment Health Maintenance Due Date Last Done Comments Colorectal Cancer Screening Colonoscopy (10 Years) 1955 Hepatitis C 1971 DTaP, Tdap and Td Vaccines ( 1 - Tdap) 01/20/1972 Mammogram Screening 1993 Pneumococcal Vaccine: 50+ Ye ars (1 of 1 - PCV) 2003 Zoster Vaccines (1 of 2) 2003 Dexa Scan (General) 2018 COVID-19 Vaccine ( - 2023-2 5 season) 2025 Influenza Adult (#1) 2025 RSV Immunization or 60+ Years (1 - 1-dose 75+ series) 01/20/2028 Meningococcal B Vaccine Aged Out No l onger eligible based on patient's age to complete this topic Meningococcal Vaccine Aged Out No jorge vi eligible based on patient's age to complete this topic RSV Immunizations Under 20 Months Aged Out No longer eligible based on patient's age to complete this topic Insurance [facility]
--- NOTE | 2025-02-13 06:57 | ECG_ITS ---
Test Date: 2025-02-13 07:02:35 Measurements Intervals [place] Rate: 80 P: 5 AK: 126 QRS: 22 QRSD: 81 T: 71 QT: 336 QTc: 390 Interpretive Statements SINUS RHYTHM WITH SINUS ARRHYTHMIA CONSIDER INFERIOR INFARCT, AGE INDETERMINATE BORDERLINE ST-T WAVE ABNORMALITY- HIGH LATERAL LEADS BASELINE ARTIFACT- I, II, III, AVR, AVL, AVF, V1 ABNORMAL ECG No previous ECG available for comparison Electronically Signed On 02-13-2025 07:41:23 CDT by Hill Houston D.O.
--- NOTE | 2025-02-13 07:01 | ED_ITS ---
HPI - Fall General Chief Complaint: Fall <Soy Serrano MD - Last Filed: 02/13/25 07:09> Stated Complaint: fall <Soy Serrano MD - Last Filed: 02/13/25 07:09> Time Seen by Provider: 02/13/25 07:25 <Soy Serrano MD - Last Filed: 02/13/25 07:09> Source: patient and EMS <Soy Serrano MD - Last Filed: 02/13/25 07:09> History of Present Illness HPI Narrative: this is a 70-year-old female with a history of hypothyroidism and recent spinal surgery in early January had a fall earlier this evening found by her on the floor. The patient is having some discomfort in her back from her cervical spine to her lower lumbar spine has good range of motion in her lower extremities with no numbness or tingling, patient hit her head no loss of consciousness has a small abrasion to the occipital scalp no neurological deficits. <Soy Serrano MD - Last Filed: 02/13/25 07:09> MD complaint: fall <Soy Serrano MD - Last Filed: 02/13/25 07:09> Onset (ago): hour(s) <Soy Serrano MD - Last Filed: 02/13/25 07:09> Fall witnessed: no <Soy Serrano MD - Last Filed: 02/13/25 07:09> Place fall occurred: home <Soy Serrano MD - Last Filed: 02/13/25 07:09> Loss of consciousness: unsure <Soy Serrano MD - Last Filed: 02/13/25 07:09> Prolonged down time: yes <Soy Serrano MD - Last Filed: 02/13/25 07:09> Severity: moderate <Soy Serrano MD - Last Filed: 02/13/25 07:09> Related Data Home Medications: Home Medications ?Medication ?Instructions ?Recorded ?Confirmed ?Last Taken ?Type duloxetine 20 mg capsule,delayed 20 mg PO DAILY 05/08/22 Unknown History release gabapentin 300 mg capsule 900 mg PO TID 05/08/2205/08 Unknown History levothyroxine 112 mcg tablet 112 mcg PO DAILY 05/08/22 05/08/22 Unknown History nortriptyline 75 mg capsule 75 mg PO HS 05/08/2205/08 Unknown History sumatriptan succinate 100 mg tablet 100 mg PO DAILY MO N Headache 05/08/22 05/08/22 Unknown History verapamil 120 mg tablet,extended 120 mg PO BID 3 05/08/22 Unknown History release <Soy Serrano MD - Last Filed: 02/13/25 07:09> Allergies/Adverse Reactions: Allergies Allergy/AdvReac Type Severity Reaction Status Date / Time No Known Allergies Allergy Verified 02/13/25 06:48 <Soy Serrano MD - Last Filed: 02/13/25 07:09> Review of Systems 2 Review of Systems: All systems reviewed & are unremarkable except as noted in HPI and below <Soy Serrano MD - Last Filed: 02/13/25 07:09> PMFSH Past Medical History Medical History: Medical History Hypothyroidism (acquired) <Soy Serrano MD - Last Filed: 02/13/25 07:09> Social History Social History: Social History Spiritual care concerns: No <Soy Serrano MD - Last Filed: 02/13/25 07:09> Exam 2 Const: General: no acute distress <Soy Serrano MD - Last Filed: 02/13/25 07:09> Nutritional Appearance: obese <Soy Serrano MD - Last Filed: 02/13/25 07:09> Limitations: altered mental status and physical limitations <Soy Serrano MD - Last Filed: 02/13/25 07:09> HENMT: Head: normal to inspection <Soy Serrano MD - Last Filed: 02/13/25 07:09> Face and sinus: normal facial exam <Soy Serrano MD - Last Filed: 02/13/25 07:09> Eyes: Conjunctivae: conjunctivae normal <Soy Serrano MD - Last Filed: 02/13/25 07:09> Pupils: Equal, round and reactive pupils present <Soy Serrano MD - Last Filed: 02/13/25 07:09> EOM: EOMs intact bilaterally <Soy Serrano MD - Last Filed: 02/13/25 07:09> Neck: Neck: no lymphadenopathy <Soy Serrano MD - Last Filed: 02/13/25 07:09> Chest: Chest palpation & inspection: normal inspection of the chest < Soy Serrano MD - Last Filed: 02/13/25 07:09> Resp: Effort & Inspection: normal respiratory effort <Soy Serrano MD - Last Filed: 02/13/25 07:09> Auscultation: clear to auscultation bilaterally <Soy Serrano MD - Last Filed: 02/13/25 07:09> Cardio: Rhythm: regular rhythm <Soy Serrano MD - Last Filed: 02/13/25 07:09> GI: GI Palp: Yes Soft to palpation <Soy Serrano MD - Last Filed: 02/13/25 07:09> Auscultation: normal bowel sounds <Soy Serrano MD - Last Filed: 02/13/25 07:09> Skin: Wounds: wounds noted <Soy Serrano MD - Last Filed: 02/13/25 07:09> Other: abrasion to the occipital scalp <Soy Serrano MD - Last Filed: 02/13/25 07:09> Neuro: General: moves all extremities, no meningeal signs, no focal motor deficits and CN's II-XI intact bilaterally <Soy Serrano MD - Last Filed: 02/13/25 07:09> Cranial nerves: Yes Nystagmus not present <Soy eSrrano MD - Last Filed: 02/13/25 07:09> Speech: normal speech <Soy Serrano MD - Last Filed: 02/13/25 07:09> Extrem: General: normal to inspection, no clubbing, cyanosis or edema and no pedal edema <Soy Serrano MD - Last Filed: 02/13/25 07:09> Course Course Emergency Course: Dr. Christine hines take over care patient started on IV fluids given with normal saline and IV Toradol Patient was assessed and history taken by myself with a nurse present in the room CT scan of head cervical thoracic and lumbar spine obtained labs performed With CBC CK troponin EKG performed EKG shows normal sinus rhythm. <oSy Serrano MD - Last Filed: 02/13/25 07:09> Vital Signs Vital signs: Vital Signs Temperature 36.2 C L 02/13/25 06:30 Pulse Rate 86 02/13/25 06:30 Respiratory Rate 18 02/13/25 06:30 Blood Pressure 128/68 02/13/25 06:30 Pulse Oximetry 88 L 02/13/25 06:30 Oxygen Delivery Room Air 02/13/25 06:30 Temperature 36.2 C L 02/13/25 06:30 Pulse Rate 86 02/13/25 06:30 Respiratory Rate 18 02/13/25 06:30 Blood Pressure 128/68 02/13/25 06:30 Pulse Oximetry 87 L 02/13/25 07:58 Oxygen Delivery Room Air 02/13/25 07:58 Oxygen Flow Rate 2 02/13/25 06:34 <Soy Serrano MD - Last Filed: 02/13/25 07:09> Vital Signs Temperature 36.2 C L 02/13/25 06:30 Pulse Rate 86 02/13/25 06:30 Respiratory Rate 18 02/13/25 06:30 Blood Pressure 128/68 02/13/25 06:30 Pulse Oximetry 88 L 02/13/25 06:30 Oxygen Delivery Room Air 02/13/25 06:30 Temperature 36.2 C L 02/13/25 06:30 Pulse Rate 86 02/13/25 06:30 Respiratory Rate 18 02/13/25 06:30 Blood Pressure 128/68 02/13/25 06:30 Pulse Oximetry 87 L 02/13/25 07:58 Oxygen Delivery Room Air 02/13/25 07:58 Oxygen Flow Rate 2 02/13/25 06:34 <Danie Alexis MD - Last Filed: 02/13/25 10:11> MDM - Fall MDM Narrative Medical decision making narrative: I took over care for this patient at shift change. I introduced myself to the patient and I noticed that she is slow to respond. The says this is her baseline since she had cervical spine surgery. All studies are pending at this time. I reviewed the EKG which shows sinus rhythm which is normal/nonspecific T-wave changes/normal axis. Patient's final workup shows a T10 compression fracture which looks relatively new and correlates with the fall on her back last night. She also has TIFFANI and dehydration. She has rhabdomyolysis. And lastly a left lung contusion on chest x-ray. We will talk to [facility] for trauma transfer versus admission here for IV fluids. The reason for trauma transfer would be that she had spinal fusion in the same area of T10 just in January at [facility]. I spoke to the orthopedic spinal surgeon at [facility] and they suggested to put her spinal shell back on and follow up as an outpatient which she has an appointment this Friday. Further we will admit this patient here for observation for the pulmonary contusion and hypoxemia with oxygen requirement as well as IV fluids for the TIFFANI and rhabdomyolysis and dehydration. Pending urinalysis. Patient resting quietly without pain. Otherwise she is at baseline. With hypoxemia and lung contusion and recent surgery we will have her get a V/Q scan in the morning to rule out PE as we cannot get a CTA of the chest right now with her low GFR and TIFFANI. I discussed the case with the floor hospitalist and they will proceed with care at this time. She will get a full dose of Lovenox on the floor to cover her until the V/Q scan. <Danie Alexis MD - Last Filed: 02/13/25 10:11> Lab Data Attestation: I reviewed the patient's lab results. <Danie Alexis MD - Last Filed: 02/13/25 10:11> Result diagrams: 02/13/25 07:25 02/13/25 07:25 <Soy Serrano MD - Last Filed: 02/13/25 07:09> Labs: Lab Results 02/13/25 02/13/25 Range/Units 07:21 07:25 WBC 13.4 H (4.8-10.8) K/mm3 RBC 3.33 L (4.20-5.40) M/mm3 Hgb 10.0 L (11.7-13.8) g/dL Hct 32.1 L (35.0-42.0) % MCV 96.4 (78.0-102.0) fL MCH 30.0 (27.0-31.0) pg MCHC 31.2 L (32-36) g/dL RDW 18.1 H (11.6-14.4) % Plt Count 240 (150-420) K/mm3 MPV 8.7 L (9.2-11.8) fl Immature Gran % (Auto) 0.9 H (0.0-0.0) % Neut % (Auto) 79.2 H (50.0-70.0) % Lymph % (Auto) 9.7 L (18.0-42.0) % [place] % (Auto) 9.6 (2.0-11.0) % Eos % (Auto) 0.2 L (1.0-6.0) % Baso % (Auto) 0.4 (0.0-1.0) % Lymph # (Auto) 1.30 (1.10-4.50) K/mm3 [place] # (Auto) 1.29 H (0.10-0.90) K/mm3 Eos # (Auto) 0.03 (0.02-0.50) K/mm3 Baso # (Auto) 0.05 (0.00-0.10) K/mm3 Abs Immat Gran (auto) 0.12 H (0.00-0.00) K/mm3 Absolute Neuts (auto) 10.64 H (1.70-7.20) K/mm3 Absolute Nucleated RBC 0.00 (0.00-0.00) K/mm3 Nucleated RBC % 0.0 (0-0.0) % Sodium 140 (137-145) mmol/L Potassium 4.3 (3.4-5.0) mmol/L Chloride 103 (98-107) mmol/L Carbon Dioxide 26 (22-30) mmol/L Anion Gap 11 (4-12) mmol/L BUN 54 H (7-17) mg/dL Creatinine 2.45 H (0.7-1.0) mg/dL Estim Creat Clear Calc 20 ml/min Estimated GFR 19 L (59 - ) Glucose 121 H (65-110) mg/dL Calculated Osmolality 305 H (285-295) mOsm/kg Lactic Acid 0.9 (0.4-2.0) mmol/L Calcium 8.8 (8.4-10.2) mg/dL Total Bilirubin 1.0 (0.2-1.3) mg/dL AST 31 (14-36) U/L ALT 22 (6-35) U/L Alkaline Phosphatase 122 (38-126) U/L Total Creatine Kinase 193 H (30-135) U/L Troponin I 0.022 (0.000-0.034) ng/mL Total Protein 8.2 (6.3-8.2) g/dL Albumin 4.1 (3.5-5.1) g/dL <Soy Serrano MD - Last Filed: 02/13/25 07:09> Lab Results 02/13/25 02/13/25 Range/Units 07:21 07:25 WBC 13.4 H (4.8-10.8) K/mm3 RBC 3.33 L (4.20-5.40) M/mm3 Hgb 10.0 L (11.7-13.8) g/dL Hct 32.1 L (35.0-42.0) % MCV 96.4 (78.0-102.0) fL MCH 30.0 (27.0-31.0) pg MCHC 31.2 L (32-36) g/dL RDW 18.1 H (11.6-14.4) % Plt Count 240 (150-420) K/mm3 MPV 8.7 L (9.2-11.8) fl Immature Gran % (Auto) 0.9 H (0.0-0.0) % Neut % (Auto) 79.2 H (50.0-70.0) % Lymph % (Auto) 9.7 L (18.0-42.0) % [place] % (Auto) 9.6 (2.0-11.0) % Eos % (Auto) 0.2 L (1.0-6.0) % Baso % (Auto) 0.4 (0.0-1.0) % Lymph # (Auto) 1.30 (1.10-4.50) K/mm3 [place] # (Auto) 1.29 H (0.10-0.90) K/mm3 Eos # (Auto) 0.03 (0.02-0.50) K/mm3 Baso # (Auto) 0.05 (0.00-0.10) K/mm3 Abs Immat Gran (auto) 0.12 H (0.00-0.00) K/mm3 Absolute Neuts (auto) 10.64 H (1.70-7.20) K/mm3 Absolute Nucleated RBC 0.00 (0.00-0.00) K/mm3 Nucleated RBC % 0.0 (0-0.0) % Sodium 140 (137-145) mmol/L Potassium 4.3 (3.4-5.0) mmol/L Chloride 103 (98-107) mmol/L Carbon Dioxide 26 (22-30) mmol/L Anion Gap 11 (4-12) mmol/L BUN 54 H (7-17) mg/dL Creatinine 2.45 H (0.7-1.0) mg/dL Estim Creat Clear Calc 20 ml/min Estimated GFR 19 L (59 - ) Glucose 121 H (65-110) mg/dL Calculated Osmolality 305 H (285-295) mOsm/kg Lactic Acid 0.9 (0.4-2.0) mmol/L Calcium 8.8 (8.4-10.2) mg/dL Total Bilirubin 1.0 (0.2-1.3) mg/dL AST 31 (14-36) U/L ALT 22 (6-35) U/L Alkaline Phosphatase 122 (38-126) U/L Total Creatine Kinase 193 H (30-135) U/L Troponin I 0.022 (0.000-0.034) ng/mL Total Protein 8.2 (6.3-8.2) g/dL Albumin 4.1 (3.5-5.1) g/dL <Danie Alexis MD - Last Filed: 02/13/25 10:11> Imaging Data Attestation: I personally reviewed and interpreted this imaging study as follows: <Danie Alexis MD - Last Filed: 02/13/25 10:11> Radiologist's impression: CT scan of the head and neck were negative for acute process CT scan of the thoracic and lumbar shows a T10 compression fracture relatively new Chest x-ray shows a left lung contusion <Danie Alexis MD - Last Filed: 02/13/25 10:11> ECG Data EKG #1: Attestation: I personally reviewed and interpreted this ECG as follows: <Danie Alexis MD - Last Filed: 02/13/25 10:11> ECG completion date: 02/13/25 <Danie Alexis MD - Last Filed: 02/13/25 10:11> ECG completion time: 10:07 <Danie Alexis MD - Last Filed: 02/13/25 10:11> EKG Interpretation: normal rate, sinus rhythm, no ectopy, non-specific ST changes, normal QRS, normal QT and NL axis <Danie Alexis MD - Last Filed: 02/13/25 10:11> Critical Care Time Critical Care Time Critical Care Time: No <Soy Serrano MD - Last Filed: 02/13/25 07:09> Yes <Danie Alexis MD - Last Filed: 02/13/25 10:11> Total Critical Care Time: 40 <Danie Alexis MD - Last Filed: 02/13/25 10:11> Discharge Plan Discharge Clinical Impression: Compression fracture of T10 vertebra, TIFFANI (acute kidney injury), Dehydration, Contusion of lung, Rhabdomyolysis, Hypoxia <Soy Serrano MD - Last Filed: 02/13/25 07:09> Patient Disposition: Acute Care Hospital [facility] <Soy Serrano MD - Last Filed: 02/13/25 07:09> Condition: Stable <Soy Serrano MD - Last Filed: 02/13/25 07:09> Patient Language: Gambian <Soy Serrano MD - Last Filed: 02/13/25 07:09> Prescriptions: No Action verapamil 120 mg tablet extended release 120 mg PO BID sumatriptan succinate 100 mg tablet 100 mg PO DAILY PRN (Reason: Headache) nortriptyline 75 mg capsule 75 mg PO HS gabapentin 300 mg capsule 900 mg PO TID levothyroxine 112 mcg tablet 112 mcg PO DAILY duloxetine 20 mg capsule,delayed release(DR/EC) 20 mg PO DAILY hydrocodone-acetaminophen 10-325 mg tablet 1 tablet PO Q6H PRN (Reason: pain) Qty: 20 0RF nitrofurantoin monohyd/m-cryst [Macrobid] 100 mg capsule 100 mg PO Q12H 5 Days Qty: 10 0RF Rx Instructions: must administer with a meal/food loperamide [Imodium A-D] 2 mg capsule 2 mg PO Q6H PRN (Reason: loose stool) Qty: 10 0RF <Soy Serrano MD - Last Filed: 02/13/25 07:09> Time of Disposition: 09:02 <Soy Serrano MD - Last Filed: 02/13/25 07:09> 09:02 <Danie Alexis MD - Last Filed: 02/13/25 10:11>
--- NOTE | 2025-02-13 07:05 | PC.NURSE ---
Patient in [facility] from home, requesting to stay in personal gown at this time.
--- NOTE | 2025-02-13 07:27 | PC.NURSE ---
Per Dr. Alexis hold on fluids and toradol at this time.
[2025-02-13 07:29] LABS: Hematocrit 32.1 % (35.0-42.0); Hemoglobin 10.0 g/dL (11.7-13.8); Immature Granulocyte Percent A 0.9 % (0.0-0.0); Lymphocytes Absolute Auto 1.30 K/mm3 (1.10-4.50); Mean Corpuscular HGB Conc 31.2 g/dL (32-36); Mean Corpuscular Hemoglobin 30.0 pg (27.0-31.0); Mean Corpuscular Volume 96.4 fL (78.0-102.0); Nucleated Red Blood Cells Absolute Auto 0.00 K/mm3 (0.00-0.00); Nucleated Red Blood Cells Perc 0.0 % (0-0.0); Platelet Count Result 240 K/mm3 (150-420); Red Blood Count 3.33 M/mm3 (4.20-5.40); White Blood Count 13.4 K/mm3 (4.8-10.8)
[2025-02-13 07:40] LABS: Alanine Aminotransferase 22 U/L (6-35); Albumin Level 4.1 g/dL (3.5-5.1); Alkaline Phosphatase 122 U/L (38-126); Anion Gap 11 mmol/L (4-12); Aspartate Amino Transferase 31 U/L (14-36); Bilirubin,Total 1.0 mg/dL (0.2-1.3); Blood Urea Nitrogen 54 mg/dL (7-17); Calcium 8.8 mg/dL (8.4-10.2); Carbon Dioxide 26 mmol/L (22-30); Chloride 103 mmol/L (98-107); Estimated CRCL calculation 20 ml/min; Estimated Glomerular Filt Rate 19; Glucose 121 mg/dL (65-110); Osmolality Calculated 305 mOsm/kg (285-295); Potassium 4.3 mmol/L (3.4-5.0); Sodium 140 mmol/L (137-145); Total Protein 8.2 g/dL (6.3-8.2)
[2025-02-13 07:47] LABS: Creatine Kinase 193 U/L (30-135)
[2025-02-13 07:52] LABS: Troponin I 0.022 ng/mL (0.000-0.034)
[2025-02-13] MEDS: SODIUM CHLORIDE 0.9% IV 1,000 ML 999 ML IV CONT (07:58)
--- NOTE | 2025-02-13 11:30 | PC.NURSE ---
1025 Patient arrived to unit in w/c accompanied by ED staff and patient 's . Patient admitted to room 204 for observation with telemetry. Patient educated on use of call light and bed controls and voices understanding. Patient and educated on visiting hours, use of rapid response, infection control practices, and general hospital policies. Blue folder placed in room. Both voiced understanding.
--- NOTE | 2025-02-13 11:50 | PC.NURSE ---
patient has back brace to be applied when patient is out of bed.
[2025-02-13 12:01] LABS: Add Urine Microscopic? YES; Appearance Urine Sl Cloudy (Clear); Glucose Urine UA Negative (Negative); Leukocyte Esterase Ur 2+ LEU/UL (Negative); Nitrate Urine Negative (Negative); Specific Grav Ur 1.025 (1.010-1.020)
[2025-02-13] MEDS: oxyCODONE HCL (*CRX) 2.5 MG TAB IR PO ×2 (12:15→21:57)
--- NOTE | 2025-02-13 13:26 | PC.NURSE ---
Psychosocial Rehabilitation Counselor removed dressing from surgical wound dated 02/03. Nurse discovered a 6 inch incision closed with numerous large sutures. Wound is approximated, but not healed. Psychosocial Rehabilitation Counselor noted dried drainage, brown in color in minimal amount on old dressing. Psychosocial Rehabilitation Counselor cleansed wound with n/s and no additional, fresh drainage was noted. Nurse applied ABD pad and medi-pore tape on four sides to keep wound clean. No signs of infection noted at this time, however area around the wound was visibly soiled. Awaiting orders for wound treatment after FORMS ANALYSIS MANAGER has seen and evaluated wound.
[2025-02-13] MEDS: GABAPENTIN 100 MG CAPSULE PO ×2 (13:53→21:57)
[2025-02-13] MEDS: ENOXAPARIN 100 MG/ML SYRINGE 80 MG SUB-Q (13:53)
[2025-02-13] MEDS: cefTRIAXone 1 GM in SODIUM CHLORIDE 0.9% IV 50 ML 100 ML IVPB (13:54)
[2025-02-13] MEDS: VERAPAMIL HCL ER 120 MG TABLET PO (21:57)
[2025-02-13] MEDS: SENNA/DOCUSATE SODIUM TABLET 1 TAB PO (21:57)
[2025-02-14] VITALS (8 sets, daily range): BP systolic 101–143; BP diastolic 55–62; PULSE 65–87; RESP 16–18; TEMP 36–36.8; O2SAT 90–94
--- NOTE | 2025-02-14 | CONSULT_PTH ---
PATIENT: Evelyn Gil LOC: [facility] U#:[id number] AGE/SX: 70/F ROOM: [facility] RE02/16/[address]: Dean Mijares MD : [id number] BED: 1 DIS: 02/25/2025 SPEC #: [id number] RECD: 02/14/25 07:40 STATUS: GRICELDA REArron #: [id number] YUMIKO: 02/14/25 00:[address]: Jayson Mijares DEPT: [facility] Consult RECD BY: Daphnie Rai MLT, ([facility]) ENTERED: 02/14/25 07:40 SP TYPE: Consult OTHR DR: JOSE Williamson MD Tissues: A - Peripheral Smear Procedures: Hematology Consult
[2025-02-14] MEDS: GABAPENTIN 100 MG CAPSULE PO ×3 (06:15→20:51)
[2025-02-14] MEDS: LEVOTHYROXINE SODIUM 112 MCG TABLET PO (06:15)
[2025-02-14 07:20] LABS: Hematocrit 31.0 % (35.0-42.0); Hemoglobin 9.3 g/dL (11.7-13.8); Immature Granulocyte Percent A 1.0 % (0.0-0.0); Lymphocytes Absolute Auto 1.45 K/mm3 (1.10-4.50); Mean Corpuscular HGB Conc 30.0 g/dL (32-36); Mean Corpuscular Hemoglobin 29.2 pg (27.0-31.0); Mean Corpuscular Volume 97.5 fL (78.0-102.0); Nucleated Red Blood Cells Absolute Auto 0.00 K/mm3 (0.00-0.00); Nucleated Red Blood Cells Perc 0.0 % (0-0.0); Platelet Count Result 271 K/mm3 (150-420); Red Blood Count 3.18 M/mm3 (4.20-5.40); White Blood Count 10.8 K/mm3 (4.8-10.8)
[2025-02-14 07:31] LABS: Alanine Aminotransferase 21 U/L (6-35); Albumin Level 4.0 g/dL (3.5-5.1); Alkaline Phosphatase 118 U/L (38-126); Anion Gap 10 mmol/L (4-12); Aspartate Amino Transferase 29 U/L (14-36); Bilirubin,Total 0.9 mg/dL (0.2-1.3); Blood Urea Nitrogen 52 mg/dL (7-17); Calcium 8.6 mg/dL (8.4-10.2); Carbon Dioxide 26 mmol/L (22-30); Chloride 104 mmol/L (98-107); Estimated CRCL calculation 21 ml/min; Estimated Glomerular Filt Rate 23; Glucose 120 mg/dL (65-110); Magnesium 3.0 mg/dL (1.6-2.3); Osmolality Calculated 305 mOsm/kg (285-295); Potassium 4.1 mmol/L (3.4-5.0); Sodium 140 mmol/L (137-145); Total Protein 8.2 g/dL (6.3-8.2)
--- NOTE | 2025-02-14 09:25 | PC.NURSE ---
patient taken down via wheelchair to have VQ lung scan.
[2025-02-14] MEDS: LOSARTAN POTASSIUM 50 MG TABLET 100 MG PO (10:33)
[2025-02-14] MEDS: oxyCODONE HCL (*CRX) 2.5 MG TAB IR PO ×2 (10:33→20:50)
[2025-02-14] MEDS: TOPIRAMATE 100 MG TABLET PO (10:34)
[2025-02-14] MEDS: VERAPAMIL HCL ER 120 MG TABLET PO ×2 (10:34→20:51)
--- NOTE | 2025-02-14 11:50 | P.SS_ITS ---
Same Day Admit/Disch: HPI History of Present Illness Chief complaint: Fall Narrative: Evelyn Gil is a 70 year old female who presented to the emergency department after a fall at home with continued back pain and discomfort. Patient with recent spinal surgery in January. Patient does not recall events leading up to her fall improved medical chart patient has had some cognitive issues swallowing her surgery per . Patient reported mild shortness of breath, lower back pain but denied any chest pain, nausea, vomiting. patient with past medical history HTN and hypothyroidism. In the ED: trauma imaging showed T10 lumbar fracture at which time ER physician did contact patient's previous ortho/spine physician regarding new fracture recommended continued TSL0 brace and pain management can follow-up outpatient with regular scheduled appointment. leukocytosis of 13.4, anemia with Hgb at 10.0, and acute kidney injury above patient's previous baseline cr.2.45. patient's UA suspicious for UA with reports of right CVA pain. patient was also found to have acute respiratory failure with hypoxia oxygen saturation around 87 upon arrival but improved with 2 L nasal cannula. Unable to perform CTA due to TIFFANI V/Q ordered for in the morning to rule out PE. [facility] Past Medical History Medical History (Updated 02/14/25 @ 12:10 by Traci Herrera APRN) Hypertension Hypothyroidism (acquired) Surgical History Surgical History (Updated 02/14/25 @ 12:02 by Traci Herrera APRN) Spinal surgery in prior 3 months Social History Social History Smoking status: Never smoker Second hand tobacco smoke exposure: No Alcohol intake: never Substance use: never Substance use type: does not use Lack of Transportation: No Lack of Food: Never True Current Housing: I Have Housing Concerned About Future Housing: No Difficulty Paying Gas/Electric Bills: No Difficulty Paying for Meds: No Currently Unemployed: No Education: High School Diploma/GED Difficulty w/ Childcare or Family Care: No Spiritual care concerns: No Same Day Admit/Disch: Med Pre-admit Medications Home Medications ?Medication ?Instructions ?Recorded ?Confirmed ?Type levothyroxine 112 mcg tablet 112 mcg PO DAILY 05/08/22 02/13/25 History sumatriptan succinate 100 mg tablet 100 mg PO DAILY CO N Headache 05/08/22 02/13/25 History verapamil 120 mg tablet,extended 120 mg PO BID 3 02/13/25 History release gabapentin 100 mg capsule 100 mg PO Q8H 02/13/2502/13 History losartan 100 1 tablet PO DAILY 02/13/25 1 History mg-hydrochlorothiazide 12.5 mg tablet topiramate 50 mg tablet 100 mg PO DAILY 02/13/2504/28 History Review of Systems Review of Systems All systems reviewed & are unremarkable except as noted in HPI and below Exam Const: General: no acute distress and uncomfortable Other: Pleasant female HENMT: Mouth: Yes moist mucous membranes Eyes: General: appearance normal, both eyes and all related structures Sclera: sclerae normal Pupils: Equal, round and reactive pupils present Neck: Neck: supple and no JVD Resp: Effort & Inspection: normal respiratory effort Auscultation: clear to auscultation bilaterally Cardio: Rate: regular rate Rhythm: regular rhythm GI: GI Palp: Yes Soft to palpation Auscultation: normal bowel sounds Skin: General skin exam: normal color and no rashes or lesions noted Wounds: no wounds Other: Spinal incision healed no erythema or drainage Neuro: General: oriented to person, oriented to place, oriented to time and moves all extremities Cognition (Neuro): normal cognition Speech: Abnormal speech present (slow to respond reports baseline) other Gait exam (Neuro): Unable to assess gait Extrem: General: normal to inspection Psych: Mental Status: mental status grossly normal Affect: normal affect DS: Data Data Completed and Pending Labs on day of discharge: Labs from last 24 hours 02/14/25 02/13/25 06:57 11:55 WBC 10.8 RBC 3.18 L Hgb 9.3 L Hct 31.0 L MCV 97.5 MCH 29.2 MCHC 30.0 L RDW 17.8 H Plt Count 271 MPV 8.8 L Immature Gran % (Auto) 1.0 H Neut % (Auto) 74.9 H Lymph % (Auto) 13.5 L Hawkins % (Auto) 9.0 Eos % (Auto) 1.3 Baso % (Auto) 0.3 Lymph # (Auto) 1.45 Hawkins # (Auto) 0.97 H Eos # (Auto) 0.14 Baso # (Auto) 0.03 Abs Immat Gran (auto) 0.11 H Absolute Neuts (auto) 8.06 H Absolute Nucleated RBC 0.00 Nucleated RBC % 0.0 Sodium 140 Potassium 4.1 Chloride 104 Carbon Dioxide 26 Anion Gap 10 BUN 52 H Creatinine 2.15 H Estim Creat Clear Calc 21 Estimated GFR 23 L Glucose 120 H Calculated Osmolality 305 H Calcium 8.6 Magnesium 3.0 H Total Bilirubin 0.9 AST 29 ALT 21 Alkaline Phosphatase 118 Total Protein 8.2 Albumin 4.0 Urine Color Yellow Urine Appearance Sl cloudy A Urine pH 5.5 Ur Specific [place] 1.025 H Urine Protein 1+ H Urine Glucose (UA) Negative Urine Ketones 1+ H Ur Blood (Man) 2+ H Urine Nitrate Negative Urine Bilirubin 1+ H Urine Urobilinogen 0.2 Leukocyte Esterase Rfl 2+ H Urine RBC 3-5 H Urine WBC 31-50 H Ur Squamous Epith Cells Few Urine Bacteria 3+ H DS: Summary Hospital Course Reason for hospitalization: Fall with trauma/TIFFANI/ acute respiratory failure with hypoxia/UTI Hospital Course: Evelyn Gil is a 70 year old female who presented to the emergency department after a fall at home with continued back pain and discomfort. Patient with recent spinal surgery in January. Patient does not recall events leading up to her fall improved medical chart patient has had some cognitive issues swallowing her surgery per . Patient reported mild shortness of breath, lower back pain but denied any chest pain, nausea, vomiting. patient with past medical history HTN and hypothyroidism. In the ED: trauma imaging showed T10 lumbar fracture at which time ER physician did contact patient's previous ortho/spine physician regarding new fracture recommended continued TSL0 brace and pain management can follow-up outpatient with regular scheduled appointment. leukocytosis of 13.4, anemia with Hgb at 10.0, and acute kidney injury above patient's previous baseline cr.2.45. patient's UA suspicious for UA with reports of right CVA pain. patient was also found to have acute respiratory failure with hypoxia oxygen saturation around 87 upon arrival but improved with 2 L nasal cannula. Unable to perform CTA due to TIFFANI V/Q ordered for in the morning to rule out PE. Hospital Course Status at Discharge Functional status at discharge: uses cane/walker Overall status at discharge: patient is not back to baseline Time Spent with Patient Time attestation: Total time spent providing and/or coordinating discharge services: Time spent: Greater than 30 minutes DS: Admitting Diagnosis Discharge Date 02/14/2025 Admitting Diagnosis Fall with trauma/TIFFANI/ acute respiratory failure with hypoxia/UTI DS: Discharge Diagnosis Discharge Diagnosis (1) Acute respiratory failure with hypoxia: Code(s): J96.01 - Acute respiratory failure with hypoxia Status: Acute (2) Contusion of lung: Qualifiers: Encounter type: initial encounter Laterality: left Qualified Code(s): S27.321A - Contusion of lung, unilateral, initial encounter Code(s): S27.329A - Contusion of lung, unspecified, initial encounter Status: Acute (3) Compression fracture of T10 vertebra: Qualifiers: Encounter type: initial encounter Qualified Code(s): S22.070A - Wedge compression fracture of T9-T10 vertebra, initial encounter for closed fracture Code(s): S22.070A - Wedge compression fracture of T9-T10 vertebra, initial encounter for closed fracture Status: Acute (4) Spinal surgery in prior 3 months: Code(s): Z98.890 - Other specified postprocedural states Status: Acute (5) TIFFANI (acute kidney injury): Code(s): N17.9 - Acute kidney failure, unspecified Status: Acute (6) Hypothyroidism (acquired): Code(s): E03.9 - Hypothyroidism, unspecified Status: Acute (7) Hypertension: Code(s): I10 - Essential (primary) hypertension Status: Acute (8) UTI (urinary tract infection): Code(s): N39.0 - Urinary tract infection, site not specified Status: Acute Discharge Plan Discharge Attending physician on discharge: Jayson Mijares Consulting providers: Traci Herrera Discharging Clinician: Traci Herrera Anticipated Discharge Date/Time: 02/14/25 12:11 Patient Disposition: Hospital Swing Bed Activity: may shower, as tolerated and other - see discharge instructions Diet: regular Discharge Instructions: 1). T10 fracture * PT/OT * Pain management * Wear TSLO brace with ambulation * Bowel regiment 2). UTI * Continue antibiotic's pending cultures How can you care for yourself at home? ? Keep track of any new symptoms or changes in your symptoms. ? Rest until you feel better. ? Be safe with medicines. Take your medicines exactly as prescribed. Call your doctor if you think you are having a problem with your medicine. ? Do not drive after taking a prescription pain medicine. ? Ensure to follow-up with primary care physician as indicated and provide updated medication list provided to you at discharge. When should you call for help? Call 911 anytime you think you may need emergency care. For example, call if: ? You passed out (lost consciousness). Call your doctor now or seek immediate medical care if: ? You have new symptoms like fever, difficulty breathing, Chest pain, vomiting, or rash. ? You have new or different pain. ? You are confused and are having trouble thinking clearly. ? Your symptoms are getting worse. Watch closely for changes in your health, and be sure to contact your doctor if: ? You do not get better as expected. Patient Instructions: Antibiotic Form Patient Language: Sinhala Stand Alone Forms: General Discharge Information Discharge Medications: Continued losartan-hydrochlorothiazide 100-12.5 mg tablet 1 tablet PO DAILY topiramate 50 mg tablet 100 mg PO DAILY gabapentin 100 mg capsule 100 mg PO Q8H Patient Comments: filled on 02-04-25 script was for 14 days verapamil 120 mg tablet extended release 120 mg PO BID sumatriptan succinate 100 mg tablet 100 mg PO DAILY PRN (Reason: Headache) levothyroxine 112 mcg tablet 112 mcg PO DAILY Date of admission: 02/13/25 10:03 Primary Care Provider: Carlos Ramesh Admitting Provider: Jayson Mijares Attending physician on admission: Jayson Mijares Condition: Stable Quality VTE Prophylaxis VTE prophylaxis: pharmacologic ordered -Patient's previous records reviewed on admission -ER notes reviewed in detail on admission -discussed all findings and current treatment plan with patient/Family/POA -Consultations reviewed for recommendations -Patient's disposition for safe discharge discussed with caser -radiology imaging, EKG and test results I have personally reviewed and interpreted unless otherwise specified Dictation performed by [employer] direct speech recognition software, therefore ladle patcher variants and typographical errors may occur. Hospitalist MIPS Advance Care Plan I have confirmed that the patient's Advanced Care Plan is present, code status is documented, or surrogate decision maker is listed in patient medical record.: Yes Medication Reconciliation I have utilized all available resources to obtain, update and review the patients current medications (includes all prescriptions, OTC, herbals, cannabis, and nutritional supplements).: Yes The patient is not eligible for med reconciliation; the patient is in a emergent medical situation where delaying treatment would jeopardize the patients health.: No Heart Failure (Exclusion) Patient has history of Heart Transplant or Left Ventricular Assistive Device?: No IF YES, STOP HERE Heart Failure (Qualifier) Patient has current or prior documentation of LVEF less than or equal to 40%, or mod/servere depressed LVSF?: No IF NO, STOP HERE
[2025-02-14] MEDS: cefTRIAXone 1 GM in SODIUM CHLORIDE 0.9% IV 50 ML 100 ML IVPB (14:14)
[2025-02-14] MEDS: ONDANSETRON INJ 4 MG/2 ML VIAL IV PUSH ×2 (14:14→19:59)
[2025-02-14] MEDS: ACETAMINOPHEN 325 MG TABLET 650 MG PO (14:14)
[2025-02-14] MEDS: METOCLOPRAMIDE HCL INJ 10 MG/2 ML VIAL 5 MG IV PUSH ×2 (17:06→23:16)
--- NOTE | 2025-02-14 18:01 | WNDPHOTO ---
Addendum entered by Malgorzata Lawrence RN 02/14/25 18:12: Lower back surgical incision. Original Note: PHOTO ONLY - See Nursing Notes and/ or assessments for documentation.
--- NOTE | 2025-02-14 18:03 | WNDPHOTO ---
Addendum entered by Malgorzata Lawrence RN 02/14/25 18:11: Lower back surgical incision. Original Note: PHOTO ONLY - See Nursing Notes and/ or assessments for documentation.
--- NOTE | 2025-02-14 18:31 | P.HP_ITS ---
H&P: HPI History of Present Illness Date/Time: 02/14/25 18:31 Chief Complaint: Fall with back pain Narrative: Evelyn Gil is a 70 year old female who presented to the emergency department after a fall at home with continued back pain and discomfort. Patient with recent spinal surgery in January. Patient does not recall events leading up to her fall improved medical chart patient has had some cognitive issues swallowing her surgery per . Patient reported mild shortness of breath, lower back pain but denied any chest pain, nausea, vomiting. patient with past medical history HTN and hypothyroidism. In the ED: trauma imaging showed T10 lumbar fracture at which time ER physician did contact patient's previous ortho/spine physician regarding new fracture recommended continued TSL0 brace and pain management can follow-up outpatient with regular scheduled appointment. leukocytosis of 13.4, anemia with Hgb at 10.0, and acute kidney injury above patient's previous baseline cr.2.45. patient's UA suspicious for UA with reports of right CVA pain. patient was also found to have acute respiratory failure with hypoxia oxygen saturation around 87 upon arrival but improved with 2 L nasal cannula. Unable to perform CTA due to TIFFANI V/Q ordered for in the morning to rule out PE. Review of Systems Review of Systems: All systems reviewed & are unremarkable except as noted in HPI and below PMFSH Past Medical History Medical History Hypertension Hypothyroidism (acquired) Surgical History Surgical History Spinal surgery in prior 3 months Social History Social History Smoking status: Never smoker Second hand tobacco smoke exposure: No Alcohol intake: never Substance use: never Substance use type: does not use Lack of Transportation: No Lack of Food: Never True Current Housing: I Have Housing Concerned About Future Housing: No Difficulty Paying Gas/Electric Bills: No Difficulty Paying for Meds: No Currently Unemployed: No Education: High School Diploma/GED Difficulty w/ Childcare or Family Care: No Spiritual care concerns: No Meds Home Medications and Allergies Home Medications ?Medication ?Instructions ?Recorded ?Confirmed ?Type levothyroxine 112 mcg tablet 112 mcg PO DAILY 05/08/22 02/13/25 History sumatriptan succinate 100 mg tablet 100 mg PO DAILY ME N Headache 05/08/22 02/13/25 History verapamil 120 mg tablet,extended 120 mg PO BID 3 02/13/25 History release gabapentin 100 mg capsule 100 mg PO Q8H 02/13/2502/13 History losartan 100 1 tablet PO DAILY 02/13/25 1 History mg-hydrochlorothiazide 12.5 mg tablet topiramate 50 mg tablet 100 mg PO DAILY 02/13/2504/28 History Allergies Allergy/AdvReac Type Severity Reaction Status Date / Time regadenoson Allergy Unknown Verified 02/13/25 11:52 Vital Signs Vital Signs - 24 hr 02/13/25 20:00 02/13/25 20:00 02/13/25 20:00 Temperature 98.2 F Pulse Rate 87 87 87 Respiratory Rate 18 18 Blood Pressure 143/62 H Pulse Oximetry 90 90 Oxygen Delivery Nasal Cannula Nasal Cannula Oxygen Flow Rate 2 2 02/14/25 00:00 02/14/25 00:00 02/14/25 04:00 Temperature 98.2 F Pulse Rate 73 87 76 Respiratory Rate 18 Blood Pressure 143/62 H Pulse Oximetry 90 Oxygen Delivery Nasal Cannula Oxygen Flow Rate 2 02/14/25 04:00 02/14/25 07:25 02/14/25 08:40 Temperature 98.0 F 97.5 F L Pulse Rate 76 70 70 Respiratory Rate 18 16 16 Blood Pressure 140/60 119/56 L Pulse Oximetry 91 93 93 Oxygen Delivery Nasal Cannula Nasal Cannula Nasal Cannula Oxygen Flow Rate 2 1 1 02/14/25 12:00 02/14/25 16:40 Temperature 96.8 F L Pulse Rate 71 65 Respiratory Rate 16 18 Blood Pressure 101/55 L Pulse Oximetry 93 94 Oxygen Delivery Nasal Cannula Nasal Cannula Oxygen Flow Rate 1 1 Exam Const: General: comfortable and no acute distress Other: Pleasant female HENMT: Mouth: Yes moist mucous membranes Eyes: General: appearance normal, both eyes and all related structures Sclera: sclerae normal Pupils: Equal, round and reactive pupils present Neck: Neck: supple and no JVD Resp: Effort & Inspection: normal respiratory effort Auscultation: clear to auscultation bilaterally Cardio: Rate: regular rate Rhythm: regular rhythm GI: GI Palp: Yes Soft to palpation Auscultation: normal bowel sounds Skin: General skin exam: normal color and no rashes or lesions noted Wounds: wounds noted Other: Spinal incision healed no erythema or drainage Neuro: General: oriented to person, oriented to place and oriented to time Cognition (Neuro): normal cognition Speech: Abnormal speech present (slow to respond reported baseline) Gait exam (Neuro): Unable to assess gait Sensory Exam: normal sensation Extrem: General: normal to inspection Psych: Mental Status: mental status grossly normal Affect: normal affect H&P: Results Labs Labs: Short CBC 02/14/25 Range/Units 06:57 WBC 10.8 (4.8-10.8) K/mm3 Hgb 9.3 L (11.7-13.8) g/dL Hct 31.0 L (35.0-42.0) % Plt Count 271 (150-420) K/mm3 BMP 02/14/25 06:57 Sodium 140 Potassium 4.1 Chloride 104 Carbon Dioxide 26 BUN 52 H Creatinine 2.15 H Glucose 120 H Calcium 8.6 Liver Function 02/14/25 Range/Units 06:57 Total Bilirubin 0.9 (0.2-1.3) mg/dL AST 29 (14-36) U/L ALT 21 (6-35) U/L Alkaline Phosphatase 118 (38-126) U/L Albumin 4.0 (3.5-5.1) g/dL Imaging Chest x-ray: Radiologist's impression: Examination: XR chest 1V portable Clinical History: fall Comparison: None Technique: Portable AP Findings: Heart size normal. Left basilar atelectasis. No acute bony abnormality. IMPRESSION: 1. Left basilar atelectasis. Contusion not excluded. 2. Otherwise no acute cardiopulmonary findings given portable technique. CT HEAD NON-CONTRAST CT C-SPINE Clinical History: Fall, head injury, AMS, cervical pain, back pain Comparison: None Technique: Unenhanced axial images skull base to vertex. Coronal, sagittal reformats. Axial images thoracic inlet to skull base. Sagittal and coronal reformats. CT images acquired with automatic exposure control for dose reduction DLP: 605 mGy-cm Findings: Head: White matter changes, typically chronic microvascular ischemic disease. Sulci, ventricles: Unremarkable. No intracerebral hemorrhage. No evidence acute territorial infarct. No mass effect, midline shift, intra-/extra-axial fluid collection. Bony calvarium intact. Visualized paranasal sinuses: Clear. Mastoid air cells: Clear. C-spine: No acute fracture. Grade 1 anterolisthesis of C2 on 3, C3 on 4, C4 on 5, C7 on T1. Grade 1 retrolisthesis C6 on 7. Straightening of normal cervical lordosis. Moderate degenerative changes. Ankylosis C5-6. Severe disc disease C6-7. Prevertebral soft tissues within normal limits. Visualized lung apices: Left effusion. Visualized thyroid: Unremarkable. No enlarged cervical nodes. IMPRESSION: HEAD: 1. No acute intracranial findings. C-SPINE: 1. No acute fracture. 2. Degenerative and chronic findings as above. EXAMINATION: CT thoracic lumbar wo con DATE: 02/13/2025 07:22 INDICATION: Back pain. Fall. TECHNIQUE: Computed tomography (CT) of the thoracic and lumbar spine was performed without intravenous contrast. Automated exposure control and iterative reconstruction technique were employed. The dose-length product was 2013.55 mGy- cm. COMPARISON: CT abdomen and pelvis 05/08/2022 FINDINGS: CT THORACIC SPINE: There is mild atelectasis bilaterally. There are airspace and groundglass opacities in left lower lobe with volume loss, consistent with atelectasis versus pneumonia. There is 5 degrees dextrocurvature of thoracic spine. There is 2 mm retrolisthesis of C6 on C7, 2 mm anterolisthesis of C7 on T1, 3 mm anterolisthesis of T2 on T3, and 2 mm anterolisthesis of T10 on T11. There is a compression fracture of T10 with 1/5 loss of height. There are changes of posterior fusion procedure from T10 to S1 and the bilateral sacroiliac joints. There is mildly decreased disc height at multiple thoracic levels. There is multilevel facet joint osteoarthritis, severe in the upper thoracic spine. There is mild neural foraminal stenosis at multiple levels on either side. There is no central canal stenosis. CT LUMBAR SPINE: There is 4 mm retrolisthesis of L2 on L3. Vertebral body heights are normal. There is moderately decreased disc height at L2-L3, mildly decreased disc height at L3-L4 and L4-L5, and severely decreased disc height at L5-S1. There is multilevel facet joint hypertrophy, moderate at multiple levels. On the right, there is mild neural foraminal stenosis at L3-L4 and L4-L5. On the left, there is moderate neural foraminal stenosis at L2-3 and mild neural foraminal stenosis from L3-L4 through L5-S1. There is mild central canal stenosis at L2-L3. IMPRESSION: 1. Age-indeterminate compression fracture of T10, new from 05/08/2022. 2. Mild thoracic spondylosis and severe lumbar spondylosis. 3. Posterior fusion procedure from T10 to the sacrum and iliac bones. 4. Airspace and groundglass opacities in left lung lower lobe with volume loss, consistent with atelectasis versus pneumonia. EXAMINATION: CT thoracic lumbar wo con DATE: 02/13/2025 07:22 INDICATION: Back pain. Fall. TECHNIQUE: Computed tomography (CT) of the thoracic and lumbar spine was performed without intravenous contrast. Automated exposure control and iterative reconstruction technique were employed. The dose-length product was 2013.55 mGy- cm. COMPARISON: CT abdomen and pelvis 05/08/2022 FINDINGS: CT THORACIC SPINE: There is mild atelectasis bilaterally. There are airspace and groundglass opacities in left lower lobe with volume loss, consistent with atelectasis versus pneumonia. There is 5 degrees dextrocurvature of thoracic spine. There is 2 mm retrolisthesis of C6 on C7, 2 mm anterolisthesis of C7 on T1, 3 mm anterolisthesis of T2 on T3, and 2 mm anterolisthesis of T10 on T11. There is a compression fracture of T10 with 1/5 loss of height. There are changes of posterior fusion procedure from T10 to S1 and the bilateral sacroiliac joints. There is mildly decreased disc height at multiple thoracic levels. There is multilevel facet joint osteoarthritis, severe in the upper thoracic spine. There is mild neural foraminal stenosis at multiple levels on either side. There is no central canal stenosis. CT LUMBAR SPINE: There is 4 mm retrolisthesis of L2 on L3. Vertebral body heights are normal. There is moderately decreased disc height at L2-L3, mildly decreased disc height at L3-L4 and L4-L5, and severely decreased disc height at L5-S1. There is multilevel facet joint hypertrophy, moderate at multiple levels. On the right, there is mild neural foraminal stenosis at L3-L4 and L4-L5. On the left, there is moderate neural foraminal stenosis at L2-3 and mild neural foraminal stenosis from L3-L4 through L5-S1. There is mild central canal stenosis at L2-L3. IMPRESSION: 1. Age-indeterminate compression fracture of T10, new from 05/08/2022. 2. Mild thoracic spondylosis and severe lumbar spondylosis. 3. Posterior fusion procedure from T10 to the sacrum and iliac bones. 4. Airspace and groundglass opacities in left lung lower lobe with volume loss, consistent with atelectasis versus pneumonia. EXAMINATION: NM lung vent and perfusion DATE: 02/14/2025 10:11 INDICATION: Hypoxia. Recent surgery. TECHNIQUE: 28.5 mCi Tc-99m DTPA aerosol by inhalation and 5 mCi Tc-99m MAA by intravenous route. Scintigraphic images of the chest were obtained. COMPARISON: Chest radiograph dated 02/13/2025 FINDINGS: There is triple matched decreased ventilation and perfusion throughout the left lower lobe with corresponding airspace opacities on the prior radiographs. There is an additional small matched ventilation and perfusion defect at the anterior segment of the right upper lobe without corresponding airspace opacity in the radiographs. No discrete ventilation and perfusion mismatch is identified. IMPRESSION: 1. Nondiagnostic (low or intermediate probability) for pulmonary embolism. Assessment and Plan Assessment and plan (1) Acute respiratory failure with hypoxia: Code(s): J96.01 - Acute respiratory failure with hypoxia Status: Acute Assessment and Plan: Patient presented with hypoxia at oxygen saturation at 87% was placed on 2L NC with improvement. * V/Q ruled out PE * wean to maintain 92% (2) Contusion of lung: Qualifiers: Encounter type: initial encounter Laterality: left Qualified Code(s): S27.321A - Contusion of lung, unilateral, initial encounter Code(s): S27.329A - Contusion of lung, unspecified, initial encounter Status: Acute Assessment and Plan: Secondary to fall * Oxygen as needed * Incentive spirometer (3) Compression fracture of T10 vertebra: Qualifiers: Encounter type: initial encounter Qualified Code(s): S22.070A - Wedge compression fracture of T9-T10 vertebra, initial encounter for closed fracture Code(s): S22.070A - Wedge compression fracture of T9-T10 vertebra, initial encounter for closed fracture Status: Acute Assessment and Plan: Trauma work-up with ne acute T10 fracture, ED had spoken with patient Ortho/spine physician follow-up outpatient as scheduled. * TSLO brace * pain management * PT/OT recommending swing/rehab (4) Spinal surgery in prior 3 months: Code(s): Z98.890 - Other specified postprocedural states Status: Acute Assessment and Plan: See Above (5) TIFFANI (acute kidney injury): Code(s): N17.9 - Acute kidney failure, unspecified Status: Acute Assessment and Plan: Cr at 2.45 POA baseline 1.4 * IV fluids improving * trend renal failure * avoid nephrotoxin medications (6) Hypothyroidism (acquired): Code(s): E03.9 - Hypothyroidism, unspecified Status: Acute Assessment and Plan: * Continued Levothyroxine (7) Hypertension: Code(s): I10 - Essential (primary) hypertension Status: Acute Assessment and Plan: * continued Losartan * Monitor BP per unit protocol (8) UTI (urinary tract infection): Code(s): N39.0 - Urinary tract infection, site not specified Status: Acute Assessment and Plan: UA suspicious for UTI * IV ceftriaxone pending culture Plan Code status: Full code per patient DVT prophylaxis: Lovenox Stress ulcer prophylaxis: NA PT/OT notes: SNF Disposition: Patient admitted for fall with fracture to T10 and acute respiratory failure with hypoxia. PT/OT recomending swing bed/rehab. CC consulted Quality VTE Prophylaxis VTE prophylaxis: pharmacologic ordered -Patient's previous records reviewed on admission -ER notes reviewed in detail on admission -discussed all findings and current treatment plan with patient/Family/POA -Consultations reviewed for recommendations -Patient's disposition for safe discharge discussed with vocational case manager -radiology imaging, EKG and test results I have personally reviewed and interpreted unless otherwise specified Dictation performed by [employer] direct speech recognition software, therefore filter tank operator variants and typographical errors may occur.For Hospitalist [facility] [place] I have confirmed that the patient's Advanced Care Plan is present, code status is documented, or surrogate decision maker is listed in patient medical record.: Yes Medication Reconciliation I have utilized all available resources to obtain, update and review the patients current medications (includes all prescriptions, OTC, herbals, cannabis, and nutritional supplements).: Yes The patient is not eligible for med reconciliation; the patient is in a emergent medical situation where delaying treatment would jeopardize the patients health.: No
[2025-02-14] MEDS: SENNA/DOCUSATE SODIUM TABLET 1 TAB PO (20:50)
[2025-02-14] MEDS: diazePAM INJ (*CRX) 10 MG/2 ML SYRINGE 2.5 MG IV PUSH (20:50)
[2025-02-15] VITALS: BP 109/59; PULSE 64; RESP 16; TEMP 36.3; O2SAT 94
[2025-02-15] MEDS: ONDANSETRON INJ 4 MG/2 ML VIAL IV PUSH ×3 (02:35→20:55)
[2025-02-15] MEDS: HYDROmorphone HCL INJ (*CRX) 2 MG/ML VIAL 1 MG IV PUSH (02:39)
[2025-02-15] MEDS: METOCLOPRAMIDE HCL INJ 10 MG/2 ML VIAL 5 MG IV PUSH ×2 (04:23→13:46)
[2025-02-15] MEDS: diazePAM INJ (*CRX) 10 MG/2 ML SYRINGE 2.5 MG IV PUSH (04:30)
[2025-02-15 05:30] VITALS: O2SAT 94
[2025-02-15 05:32] LABS: Hematocrit 30.2 % (35.0-42.0); Hemoglobin 9.2 g/dL (11.7-13.8); Immature Granulocyte Percent A 1.0 % (0.0-0.0); Lymphocytes Absolute Auto 1.11 K/mm3 (1.10-4.50); Mean Corpuscular HGB Conc 30.5 g/dL (32-36); Mean Corpuscular Hemoglobin 29.6 pg (27.0-31.0); Mean Corpuscular Volume 97.1 fL (78.0-102.0); Nucleated Red Blood Cells Absolute Auto 0.00 K/mm3 (0.00-0.00); Nucleated Red Blood Cells Perc 0.0 % (0-0.0); Platelet Count Result 284 K/mm3 (150-420); Red Blood Count 3.11 M/mm3 (4.20-5.40); White Blood Count 8.4 K/mm3 (4.8-10.8)
[2025-02-15] MEDS: GABAPENTIN 100 MG CAPSULE PO ×3 (05:33→20:55)
[2025-02-15] MEDS: LEVOTHYROXINE SODIUM 112 MCG TABLET PO (05:33)
[2025-02-15 05:43] LABS: Alanine Aminotransferase 20 U/L (6-35); Albumin Level 3.8 g/dL (3.5-5.1); Alkaline Phosphatase 107 U/L (38-126); Anion Gap 9 mmol/L (4-12); Aspartate Amino Transferase 26 U/L (14-36); Bilirubin,Total 0.7 mg/dL (0.2-1.3); Blood Urea Nitrogen 58 mg/dL (7-17); Calcium 8.3 mg/dL (8.4-10.2); Carbon Dioxide 26 mmol/L (22-30); Chloride 104 mmol/L (98-107); Estimated CRCL calculation 18 ml/min; Estimated Glomerular Filt Rate 19; Glucose 119 mg/dL (65-110); Magnesium 3.0 mg/dL (1.6-2.3); Osmolality Calculated 305 mOsm/kg (285-295); Potassium 4.5 mmol/L (3.4-5.0); Sodium 139 mmol/L (137-145); Total Protein 8.0 g/dL (6.3-8.2)
[2025-02-15 07:45] VITALS: BP 130/59; PULSE 74; RESP 18; TEMP 36.2; O2SAT 95
[2025-02-15 08:40] VITALS: PULSE 74; RESP 18; O2SAT 95
[2025-02-15] MEDS: LOSARTAN POTASSIUM 50 MG TABLET 100 MG PO (08:52)
[2025-02-15] MEDS: oxyCODONE HCL (*CRX) 2.5 MG TAB IR PO (08:52)
[2025-02-15] MEDS: VERAPAMIL HCL ER 120 MG TABLET PO ×2 (08:52→20:55)
[2025-02-15] MEDS: TOPIRAMATE 100 MG TABLET PO (08:53)
[2025-02-15 09:45] VITALS: O2SAT 89
[2025-02-15] MEDS: KETOROLAC 30 MG/ML VIAL (*BKC) IV PUSH (09:52)
[2025-02-15] MEDS: SODIUM CHLORIDE 0.9% IV 1,000 ML 150 ML IV CONT (09:53)
--- NOTE | 2025-02-15 10:38 | P.PNIM_ITS ---
Progress Note: A&P Assessment and Plan (1) Acute respiratory failure with hypoxia: Code(s): J96.01 - Acute respiratory failure with hypoxia Status: Acute Assessment and Plan: Patient presented with hypoxia at oxygen saturation at 87% was placed on 2L NC with improvement. * V/Q ruled out PE * wean to maintain 92% (2) Contusion of lung: Qualifiers: Encounter type: initial encounter Laterality: left Qualified Code(s): S27.321A - Contusion of lung, unilateral, initial encounter Code(s): S27.329A - Contusion of lung, unspecified, initial encounter Status: Acute Assessment and Plan: Secondary to fall * Oxygen as needed * Incentive spirometer (3) Compression fracture of T10 vertebra: Qualifiers: Encounter type: initial encounter Qualified Code(s): S22.070A - Wedge compression fracture of T9-T10 vertebra, initial encounter for closed fracture Code(s): S22.070A - Wedge compression fracture of T9-T10 vertebra, initial encounter for closed fracture Status: Acute Assessment and Plan: Trauma work-up with ne acute T10 fracture, ED had spoken with patient Ortho/spine physician follow-up outpatient as scheduled. * TSLO brace * pain management transitioned Percocet to as needed due to nausea * give single dose Toradol for inflammation * recommend NSAIDs for pain management * PT/OT recommending swing/rehab (4) Spinal surgery in prior 3 months: Code(s): Z98.890 - Other specified postprocedural states Status: Acute Assessment and Plan: See Above * patient has follow-up appointment with surgeon 02/16/2025 (5) TIFFANI (acute kidney injury): Code(s): N17.9 - Acute kidney failure, unspecified Status: Acute Assessment and Plan: Cr at 2.45 POA baseline 1.4 * IV fluids improving * trend renal failure * avoid nephrotoxin medications (6) Hypothyroidism (acquired): Code(s): E03.9 - Hypothyroidism, unspecified Status: Acute Assessment and Plan: * Continued Levothyroxine (7) Hypertension: Code(s): I10 - Essential (primary) hypertension Status: Acute Assessment and Plan: * continued Losartan * Monitor BP per unit protocol L (8) UTI (urinary tract infection): Code(s): N39.0 - Urinary tract infection, site not specified Status: Acute Assessment and Plan: UA suspicious for UTI * IV ceftriaxone pending culture (9) Constipation: Code(s): K59.00 - Constipation, unspecified Status: Acute Assessment and Plan: CT abdomen with no acute intra-abdominal process however patient reports no BM since admission and has been on a bowel regimen with narcotic use * patient on senna at night and MiraLax daily * added lactulose q.6 hours until BM Plan Code status: Full code per patient DVT prophylaxis: Lovenox Stress ulcer prophylaxis: NA PT/OT notes: SNF Disposition: Patient admitted for fall with fracture to T10 and acute respiratory failure with hypoxia. PT/OT recomending swing bed/rehab. CC consulted Subjective Date/time seen: 02/15/25 10:38 Interval history: patient is a 70-year-old female admitted further evaluation and treatment after T10 compression fracture and pulmonary contusion requiring supplemental oxygen for acute respiratory failure with hypoxia and UTI. 02/15/2025: Patient reporting nausea and 1 episode of vomiting overnight with constipation no BM since admission. Patient pain tolerated at this time. Patient denied CP or SOB. Review of Systems Review of Systems: All systems reviewed & are unremarkable except as noted in HPI and below Neurologic: Reports Abnormal speech present (slow to respond reported baseline) Exam Const: General: comfortable and no acute distress Orientation/consciousness: oriented to person, oriented to place and oriented to time Other: Pleasant female HENMT: Mouth: Yes moist mucous membranes Eyes: General: appearance normal, both eyes and all related structures Sclera: sclerae normal Pupils: Equal, round and reactive pupils present Neck: Neck: supple and no JVD Resp: Effort & Inspection: normal respiratory effort Auscultation: clear to auscultation bilaterally Cardio: Rate: regular rate Rhythm: regular rhythm GI: Auscultation: normal bowel sounds Skin: General skin exam: normal color, no rashes or lesions noted and wounds noted Wounds: wounds noted Other: Spinal incision healed no erythema or drainage Neuro: General: oriented to person, oriented to place, oriented to time and Unable to assess gait Cranial nerves: Yes Equal, round and reactive pupils present Cognition (Neuro): normal cognition Speech: Abnormal speech present (slow to respond reported baseline) Gait exam (Neuro): Unable to assess gait Sensory Exam: normal sensation Extrem: General: normal to inspection Psych: Mental Status: mental status grossly normal Affect: normal affect Objective Data Vital Signs Vital Signs: Vital Signs - 24 hr 02/14/25 12:00 02/14/25 16:40 02/14/25 20:00 Temperature 96.8 F L Pulse Rate 71 65 65 Respiratory Rate 16 18 18 Blood Pressure 101/55 L Pulse Oximetry 93 94 94 Oxygen Delivery Nasal Cannula Nasal Cannula Nasal Cannula Oxygen Flow Rate 1 1 1 02/14/25 20:00 02/15/25 00:00 02/15/25 07:45 Temperature 97.4 F L 97.1 F L Pulse Rate 64 74 Respiratory Rate 16 18 Blood Pressure 109/59 L 130/59 L Pulse Oximetry 94 94 95 Oxygen Delivery Nasal Cannula Nasal Cannula Nasal Cannula Oxygen Flow Rate 1 1 1 Intake/Output Intake/Output: Intake & Output 02/12/25 02/13/25 02/14/25 02/15/25 23:59 23:59 23:59 23:59 Intake Total 1800 1050 250 Output Total 600 Balance 1200 1050 250 Meds/Results Medications: Active Medications Generic Name Dose Route Start Last Admin Trade Name Freq PRN Reason Stop Dose Admin Acetaminophen 650 mg 02/13/25 11:34 02/14/25 14:14 Acetaminophen 325 Mg Tablet PO 650 mg Q4H PRN Administration Mild Pain (1-3) or Fever Diazepam 2.5 mg 02/13/25 11:39 02/15/25 04:30 Diazepam Inj (*Crx) 10 Mg/2 Ml Syringe IV PUSH 2.5 mg Q8HR PRN Administration Muscle Spasm Gabapentin 100 mg 02/13/25 14:00 02/15/25 05:33 Gabapentin 100 Mg Capsule PO 100 mg Q8H BONITA Administration Hydrochlorothiazide 12.5 mg 02/14/25 09:00 02/15/25 08:52 Hydrochlorothiazide 12.5 Mg Capsule PO 12.5 mg On Hold: 02/15/25 09:10 QAM BONITA Administration Hydromorphone HCl 1 mg 02/13/25 11:34 02/15/25 02:39 Hydromorphone Hcl Inj (*Crx) 2 Mg/Ml Vial IV PUSH 1 mg Q6HR PRN Administration Pain Rated 7-10 Ceftriaxone Sodium 1 gm/ 50 mls @ 100 mls/hr 02/13/25 14:00 02/14/25 17:12 Sodium Chloride IVPB Infused Q24H BONITA Infusion Sodium Chloride 1,000 mls @ 150 mls/hr 02/15/25 09:11 02/15/25 09:53 Normal Saline Iv IV CONT 02/15/25 15:50 150 mls/hr .Q6H40M ONE Administration Lactulose 20 gm 02/15/25 12:00 Lactulose 20 Gm/30 Ml Udc PO Q6HR BONITA Levothyroxine Sodium 112 mcg 02/14/25 06:30 02/15/25 05:33 Levothyroxine Sodium 112 Mcg Tablet PO 112 mcg DAILY@0630 BONITA Administration Losartan Potassium 100 mg 02/14/25 09:00 02/15/25 08:52 Losartan Potassium 50 Mg Tablet PO 100 mg QAM BONITA Administration Metoclopramide HCl 5 mg 02/14/25 15:56 02/15/25 04:23 Metoclopramide Hcl Inj 10 Mg/2 Ml Vial IV PUSH 5 mg Q6HR PRN Administration Nausea And Vomiting Ondansetron HCl 4 mg 02/13/25 11:34 02/15/25 08:52 Ondansetron Inj 4 Mg/2 Ml Vial IV PUSH 4 mg Q6H PRN Administration Nausea And Vomiting Oxycodone HCl 2.5 mg 02/15/25 09:09 Oxycodone Hcl (*Crx) 2.5 Mg Tab Ir PO Q6HR PRN Pain Rated 4-6 Polyethylene Glycol 17 gm 02/14/25 09:00 02/15/25 08:52 Polyethylene Glycol 3350 17 Gm Powd.Pack PO 17 gm QAM BONITA Administration Senna/Docusate Sodium 1 tab 02/13/25 21:00 02/14/25 20:50 Senna/Docusate Sodium Tablet PO 1 tab HS BONITA Administration Sumatriptan Succinate 100 mg 02/13/25 11:33 Sumatriptan Succinate 25 Mg Tablet PO DAILY PRN Headache Topiramate 100 mg 02/14/25 09:00 02/15/25 08:53 Topiramate 100 Mg Tablet PO 100 mg DAILY BONITA Administration Verapamil HCl 120 mg 02/13/25 21:00 02/15/25 08:52 Verapamil Hcl Er 120 Mg Tablet PO 120 mg Q12HR BONITA Administration Radiology Results: ITS Impressions Chest X-Ray 02/13/25 07:37 IMPRESSION: 1. Left basilar atelectasis. Contusion not excluded. 2. Otherwise no acute cardiopulmonary findings given portable technique. Cervical Spine CT 02/13/25 07:38 IMPRESSION: HEAD: 1. No acute intracranial findings. C-SPINE: 1. No acute fracture. 2. Degenerative and chronic findings as above. Head CT 02/13/25 07:38 IMPRESSION: HEAD: 1. No acute intracranial findings. C-SPINE: 1. No acute fracture. 2. Degenerative and chronic findings as above. Thoracic/Lumbar Spine CT 02/13/25 08:42 IMPRESSION: 1. Age-indeterminate compression fracture of T10, new from 05/08/2022. 2. Mild thoracic spondylosis and severe lumbar spondylosis. 3. Posterior fusion procedure from T10 to the sacrum and iliac bones. 4. Airspace and groundglass opacities in left lung lower lobe with volume loss, consistent with atelectasis versus pneumonia. Pulmonary Perfusion Imaging 02/14/25 10:56 IMPRESSION: 1. Nondiagnostic (low or intermediate probability) for pulmonary embolism. Abdomen/Pelvis CT 02/15/25 10:12 IMPRESSION: 1. No acute intra-abdominal/pelvic process. 2. Consolidation and patchy groundglass opacities in the left lower lobe which could be due to pneumonia although the region of groundglass opacity also raises possibility of pulmonary infarcts. Labs Labs: Laboratory Results - last 24 hr 02/15/25 05:22 WBC 8.4 RBC 3.11 L Hgb 9.2 L Hct 30.2 L MCV 97.1 MCH 29.6 MCHC 30.5 L RDW 17.7 H Plt Count 284 MPV 8.6 L Immature Gran % (Auto) 1.0 H Neut % (Auto) 74.5 H Lymph % (Auto) 13.2 L [place] % (Auto) 7.9 Eos % (Auto) 2.9 Baso % (Auto) 0.5 Lymph # (Auto) 1.11 [place] # (Auto) 0.66 Eos # (Auto) 0.24 Baso # (Auto) 0.04 Abs Immat Gran (auto) 0.08 H Absolute Neuts (auto) 6.26 Absolute Nucleated RBC 0.00 Nucleated RBC % 0.0 Sodium 139 Potassium 4.5 Chloride 104 Carbon Dioxide 26 Anion Gap 9 BUN 58 H Creatinine 2.48 H Estim Creat Clear Calc 18 Estimated GFR 19 L Glucose 119 H Calculated Osmolality 305 H Calcium 8.3 L Magnesium 3.0 H Total Bilirubin 0.7 AST 26 ALT 20 Alkaline Phosphatase 107 Total Protein 8.0 Albumin 3.8 Quality VTE Prophylaxis VTE prophylaxis: pharmacologic ordered -Patient's previous records reviewed on admission -ER notes reviewed in detail on admission -discussed all findings and current treatment plan with patient/Family/POA -Consultations reviewed for recommendations -Patient's disposition for safe discharge discussed with case management assistant -radiology imaging, EKG and test results I have personally reviewed and interpreted unless otherwise specified Dictation performed by [employer] direct speech recognition software, therefore legal secretary variants and typographical errors may occur. Hospitalist MIPS Advance Care Plan I have confirmed that the patient's Advanced Care Plan is present, code status is documented, or surrogate decision maker is listed in patient medical record.: Yes Medication Reconciliation I have utilized all available resources to obtain, update and review the patients current medications (includes all prescriptions, OTC, herbals, cannabis, and nutritional supplements).: Yes The patient is not eligible for med reconciliation; the patient is in a emergent medical situation where delaying treatment would jeopardize the patients health.: No
[2025-02-15] MEDS: LACTULOSE 20 GM/30 ML UDC PO ×2 (13:46→17:33)
[2025-02-15] MEDS: cefTRIAXone 1 GM in SODIUM CHLORIDE 0.9% IV 50 ML 100 ML IVPB (13:46)
[2025-02-15 16:30] VITALS: BP 113/63; PULSE 68; RESP 16; TEMP 36.5; O2SAT 97
[2025-02-16] VITALS: BP 122/57; PULSE 64; RESP 18; TEMP 36.4; O2SAT 95
[2025-02-16 05:30] VITALS: O2SAT 95
[2025-02-16 05:33] LABS: Hematocrit 29.4 % (35.0-42.0); Hemoglobin 9.0 g/dL (11.7-13.8); Immature Granulocyte Percent A 1.3 % (0.0-0.0); Lymphocytes Absolute Auto 0.90 K/mm3 (1.10-4.50); Mean Corpuscular HGB Conc 30.6 g/dL (32-36); Mean Corpuscular Hemoglobin 30.0 pg (27.0-31.0); Mean Corpuscular Volume 98.0 fL (78.0-102.0); Nucleated Red Blood Cells Absolute Auto 0.00 K/mm3 (0.00-0.00); Nucleated Red Blood Cells Perc 0.0 % (0-0.0); Platelet Count Result 274 K/mm3 (150-420); Red Blood Count 3.00 M/mm3 (4.20-5.40); White Blood Count 7.0 K/mm3 (4.8-10.8)
[2025-02-16] MEDS: LEVOTHYROXINE SODIUM 112 MCG TABLET PO (05:35)
[2025-02-16] MEDS: GABAPENTIN 100 MG CAPSULE PO ×3 (05:35→20:48)
[2025-02-16 05:50] LABS: Magnesium 2.9 mg/dL (1.6-2.3)
[2025-02-16 05:51] LABS: Alanine Aminotransferase 17 U/L (6-35); Albumin Level 3.4 g/dL (3.5-5.1); Alkaline Phosphatase 109 U/L (38-126); Anion Gap 11 mmol/L (4-12); Aspartate Amino Transferase 23 U/L (14-36); Bilirubin,Total 0.6 mg/dL (0.2-1.3); Blood Urea Nitrogen 58 mg/dL (7-17); Calcium 8.1 mg/dL (8.4-10.2); Carbon Dioxide 23 mmol/L (22-30); Chloride 107 mmol/L (98-107); Estimated CRCL calculation 16 ml/min; Estimated Glomerular Filt Rate 16; Glucose 113 mg/dL (65-110); Osmolality Calculated 309 mOsm/kg (285-295); Potassium 4.5 mmol/L (3.4-5.0); Sodium 141 mmol/L (137-145); Total Protein 6.4 g/dL (6.3-8.2)
[2025-02-16 08:00] VITALS: BP 126/55; PULSE 67; RESP 20; TEMP 36.7; O2SAT 96
--- NOTE | 2025-02-16 08:19 | P.PNIM_ITS ---
Progress Note: A&P Assessment and Plan (1) Acute respiratory failure with hypoxia: Code(s): J96.01 - Acute respiratory failure with hypoxia Status: Acute Assessment and Plan: Patient presented with hypoxia at oxygen saturation at 87% was placed on 2L NC with improvement. * V/Q Scan :Nondiagnostic (low or intermediate probability) for pulmonary embolism. * CT abdomen and pelvis: no acute findings were noted in the abdomen but consolidation and patchy groundglass opacities in the left lower lobe which could be due to pneumonia although the region of groundglass opacity also raises possibility of pulmonary infarcts were noted * D-dimer obtained and 29 * started on PO Eliquis for suspected pulmonary embolism * wean to maintain 92% (2) Contusion of lung: Qualifiers: Encounter type: initial encounter Laterality: left Qualified Code(s): S27.321A - Contusion of lung, unilateral, initial encounter Code(s): S27.329A - Contusion of lung, unspecified, initial encounter Status: Acute Assessment and Plan: Secondary to fall * Oxygen as needed * Incentive spirometer (3) Compression fracture of T10 vertebra: Qualifiers: Encounter type: initial encounter Qualified Code(s): S22.070A - Wedge compression fracture of T9-T10 vertebra, initial encounter for closed fracture Code(s): S22.070A - Wedge compression fracture of T9-T10 vertebra, initial encounter for closed fracture Status: Acute Assessment and Plan: Trauma work-up with ne acute T10 fracture, ED had spoken with patient Ortho/spine physician follow-up outpatient as scheduled. * TSLO brace * pain management * PT/OT recommending swing/rehab (4) Spinal surgery in prior 3 months: Code(s): Z98.890 - Other specified postprocedural states Status: Acute Assessment and Plan: See Above (5) TIFFANI (acute kidney injury): Code(s): N17.9 - Acute kidney failure, unspecified Status: Acute Assessment and Plan: Cr at 2.45 POA baseline 1.4 (CM obtaining OSH records for recent labs from patients admission in January) * s/p IV fluid bolus on 02/15 * trend renal failure * avoid nephrotoxin medications * trending up, cr 2.86 today * 500 cc bolus followed by iv fluids ordered * AM labs (6) Hypothyroidism (acquired): Code(s): E03.9 - Hypothyroidism, unspecified Status: Acute Assessment and Plan: * Continued Levothyroxine (7) Hypertension: Code(s): I10 - Essential (primary) hypertension Status: Acute Assessment and Plan: * continued Losartan * Monitor BP per unit protocol (8) UTI (urinary tract infection): Code(s): N39.0 - Urinary tract infection, site not specified Status: Acute Assessment and Plan: UA suspicious for UTI * IV ceftriaxone * urine culture with e. coli, sensitivities pending * AM labs (9) Constipation: Code(s): K59.00 - Constipation, unspecified Status: Acute Assessment and Plan: s/p CT abdomen and pelvis due to nausea and vomiting patient reports two large bowel movements yesterday evening continue bowel regimen (10) Pulmonary embolism: Code(s): I26.99 - Other pulmonary embolism without acute cor pulmonale Status: Acute Assessment and Plan: VQ Scan: Nondiagnostic (low or intermediate probability) for pulmonary embolism. CT abdomen and pelvis: no acute findings were noted in the abdomen but consolidation and patchy groundglass opacities in the left lower lobe which could be due to pneumonia although the region of groundglass opacity also raises possibility of pulmonary infarcts were noted D-dimer obtaind and 29 start Eliquis for suspected pulmonary embolism venous doppers were ordered ECHO ordered to rule out right heart strain wean oxygen as tolerated (11) Acute deep vein thrombosis (DVT) of both lower extremities: Code(s): I82.403 - Acute embolism and thrombosis of unspecified deep veins of lower extremity, bilateral Status: Acute Assessment and Plan: bilateral venous dopplers showed thrombus with diminished flow noted in the right peroneal vein, the left common femoral, the left femoral, the left popliteal, the left posterior tibial and the left peroneal veins patient was started on Eliquis 10 mg PO BID BLE without edema, pain monitor neurovascular status (12) Pneumonia of left lower lobe due to infectious organism: Code(s): J18.9 - Pneumonia, unspecified organism Status: Acute Assessment and Plan: continue IV ceftriaxone start IV azithromycin obtain MRSA swab collect sputum culture if able wean oxygen as tolerated plan for repeat CXR on Friday (13) Rhabdomyolysis: Qualifiers: Encounter type: initial encounter Rhabdomyolysis type: traumatic Qualified Code(s): T79.6XXA - Traumatic ischemia of muscle, initial encounter Code(s): M62.82 - Rhabdomyolysis Status: Acute Assessment and Plan: CK 193 on admission CK 158 today IV fluids repeat CK level in am Subjective Date/time seen: 02/16/25 08:19 Interval history: patient is a 70-year-old female admitted further evaluation and treatment after T10 compression fracture and pulmonary contusion requiring supplemental oxygen for acute respiratory failure with hypoxia and UTI. 02/16/2025 Patient seen for a follow up visit. Patient lying in bed, in no acute distress. Patient reports she had a large bowel movement yesterday and that she has not vomited since. Patient reports she still has nausea. Patient's labs showed BUN 58 and creatinine 2.85. 500 cc IV fluid bolus ordered, followed by continuous IV fluids. CM requesting records from patient's PCP and [facility] from recent admission to assess baseline kidney function. Patient still on 1L O2 by NC, VQ scan read said Nondiagnostic (low or intermediate probability) for pulmonary embolism. Patient had a CT abdomen and pelvis due to nausea and vomiting and no acute findings were noted in the abdomen but consolidation and patchy groundglass opacities in the left lower lobe which could be due to pneumonia although the region of groundglass opacity also raises possibility of pulmonary infarcts were noted. D-dimer ordered and elevated at 29. Venous dopplers of BLE ordered and findings are :There is thrombus with diminished flow noted in the right peroneal vein, the left common femoral, the left femoral, the left popliteal, the left posterior tibial and the left peroneal veins. Patients BLE without edema or pain. Patient started on Eliquis 10 mg PO BID, IV azithromycin added for potention pneumonia, MRSA swab ordered, ECHO ordered. Review of Systems Review of Systems: All systems reviewed & are unremarkable except as noted in HPI and below Neurologic: Reports Abnormal speech present (slow to respond reported baseline) Exam Const: General: comfortable and no acute distress Orientation/consciousness: oriented to person, oriented to place and oriented to time Other: Pleasant female HENMT: Mouth: Yes moist mucous membranes Eyes: General: appearance normal, both eyes and all related structures Sclera: sclerae normal Pupils: Equal, round and reactive pupils present Neck: Neck: supple and no JVD Resp: Effort & Inspection: normal respiratory effort Auscultation: clear to auscultation bilaterally Cardio: Rate: regular rate Rhythm: regular rhythm GI: Auscultation: normal bowel sounds Skin: General skin exam: normal color, no rashes or lesions noted and wounds noted Wounds: wounds noted Other: Spinal incision healed no erythema or drainage Neuro: General: oriented to person, oriented to place, oriented to time and Unable to assess gait Cranial nerves: Yes Equal, round and reactive pupils present Cognition (Neuro): normal cognition Speech: Abnormal speech present (slow to respond reported baseline) Gait exam (Neuro): Unable to assess gait Sensory Exam: normal sensation Extrem: General: normal to inspection Psych: Mental Status: mental status grossly normal Affect: normal affect Objective Data Vital Signs Vital Signs: Vital Signs - 24 hr 02/15/25 08:40 02/15/25 09:45 02/15/25 16:30 Temperature 97.7 F Pulse Rate 74 68 Respiratory Rate 18 16 Blood Pressure 113/63 Pulse Oximetry 95 89 L 97 Oxygen Delivery Nasal Cannula Room Air Room Air Oxygen Flow Rate 1 02/16/25 00:00 Temperature 97.6 F Pulse Rate 64 Respiratory Rate 18 Blood Pressure 122/57 L Pulse Oximetry 95 Oxygen Delivery Nasal Cannula Oxygen Flow Rate 1 Intake/Output Intake/Output: Intake & Output 02/13/25 02/14/25 02/15/25 02/16/25 23:59 23:59 23:59 23:59 Intake Total 1800 1050 1830 4 Output Total 600 400 Balance 1200 1050 1430 4 Meds/Results Medications: Active Medications Generic Name Dose Route Start Last Admin Trade Name Freq PRN Reason Stop Dose Admin Acetaminophen 650 mg 02/13/25 11:34 02/14/25 14:14 Acetaminophen 325 Mg Tablet PO 650 mg Q4H PRN Administration Mild Pain (1-3) or Fever Diazepam 2.5 mg 02/13/25 11:39 02/15/25 04:30 Diazepam Inj (*Crx) 10 Mg/2 Ml Syringe IV PUSH 2.5 mg Q8HR PRN Administration Muscle Spasm Gabapentin 100 mg 02/13/25 14:00 02/16/25 05:35 Gabapentin 100 Mg Capsule PO 100 mg Q8H BONITA Administration Hydrochlorothiazide 12.5 mg 02/14/25 09:00 02/15/25 08:52 Hydrochlorothiazide 12.5 Mg Capsule PO 12.5 mg On Hold: 02/15/25 09:10 QAM BONITA Administration Hydromorphone HCl 1 mg 02/13/25 11:34 02/15/25 02:39 Hydromorphone Hcl Inj (*Crx) 2 Mg/Ml Vial IV PUSH 1 mg Q6HR PRN Administration Pain Rated 7-10 Ceftriaxone Sodium 1 gm/ 50 mls @ 100 mls/hr 02/13/25 14:00 02/15/25 14:16 Sodium Chloride IVPB Infused Q24H BONITA Infusion Levothyroxine Sodium 112 mcg 02/14/25 06:30 02/16/25 05:35 Levothyroxine Sodium 112 Mcg Tablet PO 112 mcg DAILY@0630 BONITA Administration Losartan Potassium 100 mg 02/14/25 09:00 02/15/25 08:52 Losartan Potassium 50 Mg Tablet PO 100 mg QAM BONITA Administration Metoclopramide HCl 5 mg 02/14/25 15:56 02/15/25 13:46 Metoclopramide Hcl Inj 10 Mg/2 Ml Vial IV PUSH 5 mg Q6HR PRN Administration Nausea And Vomiting Ondansetron HCl 4 mg 02/13/25 11:34 02/15/25 20:55 Ondansetron Inj 4 Mg/2 Ml Vial IV PUSH 4 mg Q6H PRN Administration Nausea And Vomiting Oxycodone HCl 2.5 mg 02/15/25 09:09 Oxycodone Hcl (*Crx) 2.5 Mg Tab Ir PO Q6HR PRN Pain Rated 4-6 Polyethylene Glycol 17 gm 02/14/25 09:00 02/15/25 08:52 Polyethylene Glycol 3350 17 Gm Powd.Pack PO 17 gm QAM BONITA Administration Senna/Docusate Sodium 1 tab 02/13/25 21:00 02/15/25 20:31 Senna/Docusate Sodium Tablet PO Not Given HS BONITA Sumatriptan Succinate 100 mg 02/13/25 11:33 Sumatriptan Succinate 25 Mg Tablet PO DAILY PRN Headache Topiramate 100 mg 02/14/25 09:00 02/15/25 08:53 Topiramate 100 Mg Tablet PO 100 mg DAILY BONITA Administration Verapamil HCl 120 mg 02/13/25 21:00 02/15/25 20:55 Verapamil Hcl Er 120 Mg Tablet PO 120 mg Q12HR BONITA Administration Radiology Results: ITS Impressions Chest X-Ray 02/13/25 07:37 IMPRESSION: 1. Left basilar atelectasis. Contusion not excluded. 2. Otherwise no acute cardiopulmonary findings given portable technique. Cervical Spine CT 02/13/25 07:38 IMPRESSION: HEAD: 1. No acute intracranial findings. C-SPINE: 1. No acute fracture. 2. Degenerative and chronic findings as above. Head CT 02/13/25 07:38 IMPRESSION: HEAD: 1. No acute intracranial findings. C-SPINE: 1. No acute fracture. 2. Degenerative and chronic findings as above. Thoracic/Lumbar Spine CT 02/13/25 08:42 IMPRESSION: 1. Age-indeterminate compression fracture of T10, new from 05/08/2022. 2. Mild thoracic spondylosis and severe lumbar spondylosis. 3. Posterior fusion procedure from T10 to the sacrum and iliac bones. 4. Airspace and groundglass opacities in left lung lower lobe with volume loss, consistent with atelectasis versus pneumonia. Pulmonary Perfusion Imaging 02/14/25 10:56 IMPRESSION: 1. Nondiagnostic (low or intermediate probability) for pulmonary embolism. Abdomen/Pelvis CT 02/15/25 10:12 IMPRESSION: 1. No acute intra-abdominal/pelvic process. 2. Consolidation and patchy groundglass opacities in the left lower lobe which could be due to pneumonia although the region of groundglass opacity also raises possibility of pulmonary infarcts. Labs Labs: Laboratory Results - last 24 hr 02/16/25 05:20 WBC 7.0 RBC 3.00 L Hgb 9.0 L Hct 29.4 L MCV 98.0 MCH 30.0 MCHC 30.6 L RDW 17.3 H Plt Count 274 MPV 8.7 L Immature Gran % (Auto) 1.3 H Neut % (Auto) 71.9 H Lymph % (Auto) 12.9 L [place] % (Auto) 8.9 Eos % (Auto) 4.6 Baso % (Auto) 0.4 Lymph # (Auto) 0.90 L [place] # (Auto) 0.62 Eos # (Auto) 0.32 Baso # (Auto) 0.03 Abs Immat Gran (auto) 0.09 H Absolute Neuts (auto) 4.99 Absolute Nucleated RBC 0.00 Nucleated RBC % 0.0 Sodium 141 Potassium 4.5 Chloride 107 Carbon Dioxide 23 Anion Gap 11 BUN 58 H Creatinine 2.85 H Estim Creat Clear Calc 16 Estimated GFR 16 L Glucose 113 H Calculated Osmolality 309 H Calcium 8.1 L Magnesium 2.9 H Total Bilirubin 0.6 AST 23 ALT 17 Alkaline Phosphatase 109 Total Protein 6.4 Albumin 3.4 L Quality VTE Prophylaxis VTE prophylaxis: pharmacologic ordered
[2025-02-16] MEDS: VERAPAMIL HCL ER 120 MG TABLET PO ×2 (08:47→20:49)
[2025-02-16] MEDS: ACETAMINOPHEN 325 MG TABLET 650 MG PO (08:47)
[2025-02-16] MEDS: LOSARTAN POTASSIUM 50 MG TABLET 100 MG PO (08:48)
[2025-02-16] MEDS: TOPIRAMATE 100 MG TABLET PO (08:48)
[2025-02-16] MEDS: SODIUM CHLORIDE 0.9% IV 500 ML IV CONT (14:00)
[2025-02-16 14:05] LABS: Creatine Kinase 158 U/L (30-135)
[2025-02-16] MEDS: cefTRIAXone 1 GM in SODIUM CHLORIDE 0.9% IV 50 ML 100 ML IVPB (14:14)
[2025-02-16] MEDS: AZITHROMYCIN IV 500 MG in SODIUM CHLORIDE 0.9% IV 250 ML IVPB (14:16)
[2025-02-16] MEDS: SODIUM CHLORIDE 0.9% IV 1,000 ML 100 ML IV CONT ×2 (14:16→20:45)
[2025-02-16] MEDS: oxyCODONE HCL (*CRX) 2.5 MG TAB IR PO ×2 (14:17→23:52)
[2025-02-16 16:00] VITALS: BP 122/69; PULSE 65; RESP 20; TEMP 36.6; O2SAT 97
[2025-02-16] MEDS: APIXABAN 2.5 MG TABLET 10 MG PO (17:26)
[2025-02-16] MEDS: ONDANSETRON INJ 4 MG/2 ML VIAL IV PUSH (17:29)
[2025-02-16 20:00] VITALS: O2SAT 93
[2025-02-16] MEDS: HYDROmorphone HCL INJ (*CRX) 2 MG/ML VIAL 1 MG IV PUSH (20:46)
[2025-02-16] MEDS: SENNA/DOCUSATE SODIUM TABLET 1 TAB PO (20:48)
[2025-02-16] MEDS: METOCLOPRAMIDE HCL INJ 10 MG/2 ML VIAL 5 MG IV PUSH (21:06)
[2025-02-17] VITALS: BP 158/59; PULSE 65; RESP 20; TEMP 36.3; O2SAT 97
[2025-02-17] MEDS: HYDROmorphone HCL INJ (*CRX) 2 MG/ML VIAL 1 MG IV PUSH ×2 (04:36→13:04)
[2025-02-17 05:30] VITALS: O2SAT 97
[2025-02-17] MEDS: GABAPENTIN 100 MG CAPSULE PO ×3 (05:38→21:17)
[2025-02-17] MEDS: LEVOTHYROXINE SODIUM 112 MCG TABLET PO (05:38)
[2025-02-17] MEDS: APIXABAN 2.5 MG TABLET 10 MG PO ×2 (05:38→17:14)
[2025-02-17 05:42] LABS: Hematocrit 28.0 % (35.0-42.0); Hemoglobin 8.6 g/dL (11.7-13.8); Immature Granulocyte Percent A 1.4 % (0.0-0.0); Lymphocytes Absolute Auto 1.00 K/mm3 (1.10-4.50); Mean Corpuscular HGB Conc 30.7 g/dL (32-36); Mean Corpuscular Hemoglobin 29.8 pg (27.0-31.0); Mean Corpuscular Volume 96.9 fL (78.0-102.0); Nucleated Red Blood Cells Absolute Auto 0.00 K/mm3 (0.00-0.00); Nucleated Red Blood Cells Perc 0.0 % (0-0.0); Platelet Count Result 279 K/mm3 (150-420); Red Blood Count 2.89 M/mm3 (4.20-5.40); White Blood Count 5.8 K/mm3 (4.8-10.8)
[2025-02-17 05:57] LABS: Creatine Kinase 91 U/L (30-135)
[2025-02-17 05:58] LABS: Magnesium 2.7 mg/dL (1.6-2.3)
[2025-02-17 05:59] LABS: Alanine Aminotransferase 15 U/L (6-35); Albumin Level 3.1 g/dL (3.5-5.1); Alkaline Phosphatase 99 U/L (38-126); Anion Gap 8 mmol/L (4-12); Aspartate Amino Transferase 21 U/L (14-36); Bilirubin,Total 0.4 mg/dL (0.2-1.3); Blood Urea Nitrogen 41 mg/dL (7-17); Calcium 7.9 mg/dL (8.4-10.2); Carbon Dioxide 22 mmol/L (22-30); Chloride 112 mmol/L (98-107); Estimated CRCL calculation 24 ml/min; Estimated Glomerular Filt Rate 27; Glucose 104 mg/dL (65-110); Osmolality Calculated 304 mOsm/kg (285-295); Potassium 4.2 mmol/L (3.4-5.0); Sodium 142 mmol/L (137-145); Total Protein 5.8 g/dL (6.3-8.2)
--- NOTE | 2025-02-17 07:32 | P.PNIM_ITS ---
Progress Note: A&P Assessment and Plan (1) Acute respiratory failure with hypoxia: Code(s): J96.01 - Acute respiratory failure with hypoxia Status: Acute Assessment and Plan: Patient presented with hypoxia at oxygen saturation at 87% was placed on 2L NC with improvement. * V/Q Scan :Nondiagnostic (low or intermediate probability) for pulmonary embolism. * CT abdomen and pelvis: no acute findings were noted in the abdomen but consolidation and patchy groundglass opacities in the left lower lobe which could be due to pneumonia although the region of groundglass opacity also raises possibility of pulmonary infarcts were noted * D-dimer obtained and 29 * started on PO Eliquis for suspected pulmonary embolism * wean to maintain 92% (2) Contusion of lung: Qualifiers: Encounter type: initial encounter Laterality: left Qualified Code(s): S27.321A - Contusion of lung, unilateral, initial encounter Code(s): S27.329A - Contusion of lung, unspecified, initial encounter Status: Acute Assessment and Plan: Secondary to fall * Oxygen as needed * Incentive spirometer * repeat CXR in am (3) Compression fracture of T10 vertebra: Qualifiers: Encounter type: initial encounter Qualified Code(s): S22.070A - Wedge compression fracture of T9-T10 vertebra, initial encounter for closed fracture Code(s): S22.070A - Wedge compression fracture of T9-T10 vertebra, initial encounter for closed fracture Status: Acute Assessment and Plan: Trauma work-up with ne acute T10 fracture, ED had spoken with patient Ortho/spine physician follow-up outpatient as scheduled. * ANALISA griffin * pain management * PT/OT recommending swing/rehab (4) Spinal surgery in prior 3 months: Code(s): Z98.890 - Other specified postprocedural states Status: Acute Assessment and Plan: See Above (5) TIFFANI (acute kidney injury): Code(s): N17.9 - Acute kidney failure, unspecified Status: Acute Assessment and Plan: Cr at 2.45 POA baseline 1.4 (CM obtaining OSH records for recent labs from patients admission in January) * s/p IV fluid bolus on 02/15 * trend renal failure * avoid nephrotoxin medications * 500 cc bolus followed by iv fluids started on 02/16 * improvement noted today * AM labs (6) Hypothyroidism (acquired): Code(s): E03.9 - Hypothyroidism, unspecified Status: Acute Assessment and Plan: * Continued Levothyroxine (7) Hypertension: Code(s): I10 - Essential (primary) hypertension Status: Acute Assessment and Plan: * continued Losartan * Monitor BP per unit protocol (8) UTI (urinary tract infection): Code(s): N39.0 - Urinary tract infection, site not specified Status: Acute Assessment and Plan: UA suspicious for UTI * IV ceftriaxone * urine culture with e. coli, sensitivities pending * AM labs (9) Constipation: Code(s): K59.00 - Constipation, unspecified Status: Acute Assessment and Plan: s/p CT abdomen and pelvis due to nausea and vomiting patient reports two large bowel movements yesterday evening continue bowel regimen (10) Pulmonary embolism: Code(s): I26.99 - Other pulmonary embolism without acute cor pulmonale Status: Acute Assessment and Plan: VQ Scan: Nondiagnostic (low or intermediate probability) for pulmonary embolism. CT abdomen and pelvis: no acute findings were noted in the abdomen but consolidation and patchy groundglass opacities in the left lower lobe which could be due to pneumonia although the region of groundglass opacity also raises possibility of pulmonary infarcts were noted D-dimer obtained and 29 start Eliquis for suspected pulmonary embolism venous dopplers were ordered and positive for bilateral DVTs ECHO ordered to rule out right heart strain, will be done this afternoon wean oxygen as tolerated (11) Acute deep vein thrombosis (DVT) of both lower extremities: Code(s): I82.403 - Acute embolism and thrombosis of unspecified deep veins of lower extremity, bilateral Status: Acute Assessment and Plan: bilateral venous dopplers showed thrombus with diminished flow noted in the right peroneal vein, the left common femoral, the left femoral, the left popliteal, the left posterior tibial and the left peroneal veins patient was started on Eliquis 10 mg PO BID BLE without edema, pain monitor neurovascular status (12) Pneumonia of left lower lobe due to infectious organism: Code(s): J18.9 - Pneumonia, unspecified organism Status: Acute Assessment and Plan: continue IV ceftriaxone continue IV azithromycin MRSA swab positive start IV doxycycline collect sputum culture if able wean oxygen as tolerated repeat CXR on Friday (13) Rhabdomyolysis: Qualifiers: Encounter type: initial encounter Rhabdomyolysis type: traumatic Qualified Code(s): T79.6XXA - Traumatic ischemia of muscle, initial encounter Code(s): M62.82 - Rhabdomyolysis Status: Acute Assessment and Plan: CK 193 on admission CK 158 02/16 CK 91 02/17, WNL IV fluids improved Subjective Date/time seen: 02/17/25 07:32 Interval history: patient is a 70-year-old female admitted further evaluation and treatment after T10 compression fracture and pulmonary contusion requiring supplemental oxygen for acute respiratory failure with hypoxia and UTI. 02/17/2025 Patient seen for a follow up visit. Patient sitting up in chair, in no acute distress. O2 by NC in place. Patient reports her pain is increasing, nurse at bedside and will bring patient pain medication. Patient appears more awake at today's visit. Patient's MRSA swab is positive, patient started on IV doxycycline for her pneumonia. Patient's creatinine and BUN showed improvement, continue IV fluids for now. Plan for repeat CXR tomorrow to assess pneumonia. Patient reports ondansetron does not control nausea, prn order placed for PO phenergan. Patient encouraged to work with PT/OT as she appears to need rehab on discharge. Patient requested I call her and discuss new findings and treatment plan with him, I discussed this with him via telephone and all questions were answered. Review of Systems Review of Systems: All systems reviewed & are unremarkable except as noted in HPI and below Neurologic: Reports Abnormal speech present (slow to respond reported baseline) Exam Const: General: comfortable and no acute distress Orientation/consciousness: oriented to person, oriented to place and oriented to time Other: Pleasant female HENMT: Mouth: Yes moist mucous membranes Eyes: General: appearance normal, both eyes and all related structures Sclera: sclerae normal Pupils: Equal, round and reactive pupils present Neck: Neck: supple and no JVD Resp: Effort & Inspection: normal respiratory effort Auscultation: clear to auscultation bilaterally Cardio: Rate: regular rate Rhythm: regular rhythm GI: Auscultation: normal bowel sounds Skin: General skin exam: normal color, no rashes or lesions noted and wounds noted Wounds: wounds noted Other: Spinal incision healed no erythema or drainage Neuro: General: oriented to person, oriented to place, oriented to time and Unable to assess gait Cranial nerves: Yes Equal, round and reactive pupils present Cognition (Neuro): normal cognition Speech: Abnormal speech present (slow to respond reported baseline) Gait exam (Neuro): Unable to assess gait Sensory Exam: normal sensation Extrem: General: normal to inspection Psych: Mental Status: mental status grossly normal Affect: normal affect Objective Data Vital Signs Vital Signs: Vital Signs - 24 hr 02/16/25 08:00 02/16/25 16:00 02/16/25 20:00 Temperature 98.1 F 97.9 F Pulse Rate 67 65 Respiratory Rate 20 20 Blood Pressure 126/55 L 122/69 Pulse Oximetry 96 97 93 Oxygen Delivery Nasal Cannula Nasal Cannula Nasal Cannula Oxygen Flow Rate 1 1 1 02/17/25 00:00 Temperature 97.4 F L Pulse Rate 65 Respiratory Rate 20 Blood Pressure 158/59 H Pulse Oximetry 97 Oxygen Delivery Room Air Oxygen Flow Rate Intake/Output Intake/Output: Intake & Output 02/14/25 02/15/25 02/16/25 02/17/25 23:59 23:59 23:59 23:59 Intake Total 1050 1830 1972.3 150 Output Total 400 350 Balance 1050 1430 1972.3 -200 Meds/Results Medications: Active Medications Generic Name Dose Route Start Last Admin Trade Name Freq PRN Reason Stop Dose Admin Acetaminophen 650 mg 02/13/25 11:34 02/16/25 08:47 Acetaminophen 325 Mg Tablet PO 650 mg Q4H PRN Administration Mild Pain (1-3) or Fever Apixaban 10 mg 02/16/25 18:00 02/17/25 05:38 Apixaban 2.5 Mg Tablet PO 02/23/25 06:01 10 mg Q12H BONITA Administration Apixaban 5 mg 02/23/25 18:00 Apixaban 2.5 Mg Tablet PO Q12H BONITA Diazepam 2.5 mg 02/13/25 11:39 02/15/25 04:30 Diazepam Inj (*Crx) 10 Mg/2 Ml Syringe IV PUSH 2.5 mg Q8HR PRN Administration Muscle Spasm Gabapentin 100 mg 02/13/25 14:00 02/17/25 05:38 Gabapentin 100 Mg Capsule PO 100 mg Q8H BONITA Administration Hydrochlorothiazide 12.5 mg 02/14/25 09:00 02/15/25 08:52 Hydrochlorothiazide 12.5 Mg Capsule PO 12.5 mg On Hold: 02/15/25 09:10 QAM BONITA Administration Hydromorphone HCl 1 mg 02/13/25 11:34 02/17/25 04:36 Hydromorphone Hcl Inj (*Crx) 2 Mg/Ml Vial IV PUSH 1 mg Q6HR PRN Administration Pain Rated 7-10 Ceftriaxone Sodium 1 gm/ 50 mls @ 100 mls/hr 02/13/25 14:00 02/16/25 14:14 Sodium Chloride IVPB 100 mls/hr Q24H BONITA Administration Sodium Chloride 1,000 mls @ 100 mls/hr 02/16/25 12:30 02/16/25 20:45 Normal Saline Iv IV CONT 100 mls/hr .Q10H BONITA Administration Azithromycin 500 mg/ Sodium 250 mls @ 250 mls/hr 02/16/25 13:00 02/16/25 14:16 Chloride IVPB 250 mls/hr Q24H BONITA Administration Levothyroxine Sodium 112 mcg 02/14/25 06:30 02/17/25 05:38 Levothyroxine Sodium 112 Mcg Tablet PO 112 mcg DAILY@0630 BONITA Administration Losartan Potassium 100 mg 02/14/25 09:00 02/16/25 08:48 Losartan Potassium 50 Mg Tablet PO 100 mg QAM BONITA Administration Metoclopramide HCl 5 mg 02/14/25 15:56 02/16/25 21:06 Metoclopramide Hcl Inj 10 Mg/2 Ml Vial IV PUSH 5 mg Q6HR PRN Administration Nausea And Vomiting Ondansetron HCl 4 mg 02/13/25 11:34 02/16/25 17:29 Ondansetron Inj 4 Mg/2 Ml Vial IV PUSH 4 mg Q6H PRN Administration Nausea And Vomiting Oxycodone HCl 2.5 mg 02/15/25 09:09 02/16/25 23:52 Oxycodone Hcl (*Crx) 2.5 Mg Tab Ir PO 2.5 mg Q6HR PRN Administration Pain Rated 4-6 Perflutren Lipid Microsphere 0 ml 02/16/25 20:32 Perflutren Lipid Microspheres 1.5 Ml Vial Diluted To 10 Ml Total Volume IV PUSH 02/19/25 20:32 ONCE PRN adequate visualization Protocol Polyethylene Glycol 17 gm 02/14/25 09:00 02/16/25 08:48 Polyethylene Glycol 3350 17 Gm Powd.Pack PO Not Given QAM BONITA Senna/Docusate Sodium 1 tab 02/13/25 21:00 02/16/25 20:48 Senna/Docusate Sodium Tablet PO 1 tab HS BONITA Administration Sumatriptan Succinate 100 mg 02/13/25 11:33 Sumatriptan Succinate 25 Mg Tablet PO DAILY PRN Headache Topiramate 100 mg 02/14/25 09:00 02/16/25 08:48 Topiramate 100 Mg Tablet PO 100 mg DAILY BONITA Administration Verapamil HCl 120 mg 02/13/25 21:00 02/16/25 20:49 Verapamil Hcl Er 120 Mg Tablet PO 120 mg Q12HR BONITA Administration Radiology Results: ITS Impressions Chest X-Ray 02/13/25 07:37 IMPRESSION: 1. Left basilar atelectasis. Contusion not excluded. 2. Otherwise no acute cardiopulmonary findings given portable technique. Cervical Spine CT 02/13/25 07:38 IMPRESSION: HEAD: 1. No acute intracranial findings. C-SPINE: 1. No acute fracture. 2. Degenerative and chronic findings as above. Head CT 02/13/25 07:38 IMPRESSION: HEAD: 1. No acute intracranial findings. C-SPINE: 1. No acute fracture. 2. Degenerative and chronic findings as above. Thoracic/Lumbar Spine CT 02/13/25 08:42 IMPRESSION: 1. Age-indeterminate compression fracture of T10, new from 05/08/2022. 2. Mild thoracic spondylosis and severe lumbar spondylosis. 3. Posterior fusion procedure from T10 to the sacrum and iliac bones. 4. Airspace and groundglass opacities in left lung lower lobe with volume loss, consistent with atelectasis versus pneumonia. Pulmonary Perfusion Imaging 02/14/25 10:56 IMPRESSION: 1. Nondiagnostic (low or intermediate probability) for pulmonary embolism. Abdomen/Pelvis CT 02/15/25 10:12 IMPRESSION: 1. No acute intra-abdominal/pelvic process. 2. Consolidation and patchy groundglass opacities in the left lower lobe which could be due to pneumonia although the region of groundglass opacity also raises possibility of pulmonary infarcts. Venous Doppler Study 02/16/25 14:47 Impression: Bilateral DVT detailed above Labs Labs: Laboratory Results - last 24 hr 02/16/25 02/17/25 13:06 05:25 WBC 5.8 RBC 2.89 L Hgb 8.6 L Hct 28.0 L MCV 96.9 MCH 29.8 MCHC 30.7 L RDW 17.1 H Plt Count 279 MPV 8.6 L Immature Gran % (Auto) 1.4 H Neut % (Auto) 64.2 Lymph % (Auto) 17.2 L [place] % (Auto) 10.3 Eos % (Auto) 6.2 H Baso % (Auto) 0.7 Lymph # (Auto) 1.00 L [place] # (Auto) 0.60 Eos # (Auto) 0.36 Baso # (Auto) 0.04 Abs Immat Gran (auto) 0.08 H Absolute Neuts (auto) 3.72 Absolute Nucleated RBC 0.00 Nucleated RBC % 0.0 D-Dimer 29.21 H Sodium 142 Potassium 4.2 Chloride 112 H Carbon Dioxide 22 Anion Gap 8 BUN 41 H D Creatinine 1.82 H Estim Creat Clear Calc 24 Estimated GFR 27 L Glucose 104 Calculated Osmolality 304 H Calcium 7.9 L Magnesium 2.7 H Total Bilirubin 0.4 AST 21 ALT 15 Alkaline Phosphatase 99 Total Creatine Kinase 158 H 91 Total Protein 5.8 L Albumin 3.1 L Quality VTE Prophylaxis VTE prophylaxis: pharmacologic ordered
[2025-02-17 07:44] LABS: MRSA (PCR) DETECTED (NOT DETECTE)
[2025-02-17] MEDS: SODIUM CHLORIDE 0.9% IV 1,000 ML 100 ML IV CONT ×2 (07:50→18:15)
[2025-02-17 08:00] VITALS: BP 146/67; PULSE 70; RESP 18; TEMP 36.6; O2SAT 96
[2025-02-17] MEDS: METOCLOPRAMIDE HCL INJ 10 MG/2 ML VIAL 5 MG IV PUSH ×3 (08:25→21:06)
[2025-02-17] MEDS: VERAPAMIL HCL ER 120 MG TABLET PO ×2 (09:07→21:07)
[2025-02-17] MEDS: TOPIRAMATE 100 MG TABLET PO (09:07)
[2025-02-17] MEDS: MUPIROCIN 2% OINT 22 GM TUBE 1 APPLIC EACH NARE ×2 (09:07→21:07)
[2025-02-17] MEDS: LOSARTAN POTASSIUM 50 MG TABLET 100 MG PO (09:07)
[2025-02-17] MEDS: oxyCODONE HCL (*CRX) 2.5 MG TAB IR PO ×2 (09:07→17:15)
[2025-02-17] MEDS: DOXYCYCLINE IV 100 MG in SODIUM CHLORIDE 0.9% IV 100 ML IVPB ×2 (10:33→21:05)
[2025-02-17] MEDS: cefTRIAXone 1 GM in SODIUM CHLORIDE 0.9% IV 50 ML 100 ML IVPB (13:25)
--- NOTE | 2025-02-17 14:25 | ECHO_ITS ---
Patient Info Name: Evelyn Gil Age: 70 years : 1955 Gender: Female Ht: 61 in Wt: 173 lbs BSA: 1.87 m2 HR: 70 bpm BP: 146 / 67 mmHg Technical Quality: Good Exam Date: 02/17/2025 2:41 PM Patient Status: I Admit Date: 02/16/2025 Exam Type: CA echo doppler w bubble study Complete two-dimensional, color flow and Doppler transthoracic echocardiogram is performed with agitated saline. Staff Referring Physician: Elisha Chapin Dental Technologist: Kristina Domínguez Attending Provider: Jayson Mijares MD Contrast/Agitated Saline Contrast/Ag. Saline: Agitated Saline Amount: 20.00 ml Summary 1. Left ventricular chamber dimension is normal. 2. Left ventricular systolic function is normal, estimated at 60-65. 3. The left ventricular diastolic function is grade I diastolic dysfunction. 4. E/e' 6 is not elevated. 5. Left atrial chamber dimension is mildly enlarged. 6. There is mild aortic valve sclerosis. 7. There is mild aortic valve regurgitation. 8. There is trace tricuspid valve regurgitation. 9. There is trace pulmonic regurgitation. Left Ventricle E/e' 6 is not elevated. Left ventricular chamber dimension is normal. Left ventricular systolic function is normal, estimated at 60-65. The left ventricular diastolic function is grade I diastolic dysfunction. Right Ventricle Right ventricular chamber dimension is normal. Right ventricular systolic function is normal and with normal TAPSE 2.0 cm. Left Atria Left atrial chamber dimension is mildly enlarged. Right Atria Right atrial chamber dimension is normal. Atrial Septum Intact interatrial septum visualized by 2D and agitated saline imaging. Agitated saline injection with and without valsalva maneuver opacified right side cardiac chambers without shunt to left side cardiac chambers. Aortic Valve The aortic valve is trileaflet. There is mild aortic valve sclerosis. There is no aortic valve stenosis. There is mild aortic valve regurgitation. Pulmonic Valve There is trace pulmonic regurgitation. Mitral Valve There is no mitral valve stenosis. There is no mitral valve regurgitation. Tricuspid Valve There is trace tricuspid valve regurgitation. RVSP is not measured due to an inadequate TR jet. Pericardium/Pleural There is no pericardial effusion. Inferior Vena Cava Normal inferior vena cava with >50% collapse upon inspiration consistent with normal right atrial pressure, 5 mmHg. Aorta The aortic root size at the sinus of Valsalva is normal. Left Ventricular Outflow Tract Name Value Normal LVOT 2D LVOT Diameter 1.8 cm LVOT Doppler LVOT Peak Velocity 162 cm/s LVOT Peak Gradient 9 mmHg LVOT Mean Gradient 5 mmHg LVOT VTI 35 cm LVOT VTI/AV VTI Ratio 0.8 LVOT Stroke Volume 93 ml LVOT CO 5.8 l/min LVOT CI 3.1 l/min/m2 Pulmonic Valve Name Value Normal RVOT Doppler RVOT Peak Velocity 81 cm/s RVOT Peak Gradient 3 mmHg PV Doppler PV Peak Velocity 109 cm/s PV Peak Gradient 5 mmHg Mitral Valve Name Value Normal MV Diastolic Function MV E Peak Velocity 59 cm/s MV A Peak Velocity 73 cm/s MV E/A 0.8 MV Decel Time (PW) 177 ms MV Annular TDI MV E/e' (Septal) 8.6 MV E/e' (Lateral) 5.3 MV E/e' (Average) 6.9 Tricuspid Valve Name Value Normal Estimated PAP/RSVP RA Pressure 5 mmHg <=5 Aortic Valve Name Value Normal AV Doppler AV Peak Velocity 203 cm/s AV Peak Gradient 14 mmHg AV Mean Gradient 8 mmHg AV VTI 42 cm AV Area (Cont Eq VTI) 2.2 cm2 >=3.0 AV Area (Cont Eq Elian) 2.1 cm2 AV DI (Elian) 0.80 AV Regurgitation 2D LVOT Area 2.6 cm2 Ventricles Name Value Normal LV Dimensions 2D/MM IVS Diastolic Thickness (2D) 1.1 cm 0.6-1.0 LVID Diastole (2D) 4.3 cm 3.8-5.2 LVIW Diastolic Thickness (2D) 1.0 cm 0.6-0.9 LVID Systole (2D) 2.4 cm 2.2-3.5 LVOT Diameter 1.8 cm LV Mass (2D Cubed) 159.59 g 67.00-162.00 LV Mass Index (2D Cubed) 85 g/m2 43-95 Relative Wall Thickness (2D) 0.48 <=0.42 LV Fractional Shortening/Ejection Fraction 2D/MM LV Fractional Shortening (2D) 45 % 27-45 LV EF (2D Teichholz) 76 % LV Diastolic Volume (4C MOD) 90 ml LV EF (4C MOD) 55 % LV Diastolic Volume (2C MOD) 87 ml LV EF (2C MOD) 68 % LV Diastolic Volume (BP MOD) 88 ml 46-106 LV Diastolic Volume Index (BP MOD) 47 ml/m2 29-61 LV Systolic Volume (BP MOD) 35 ml 14-42 LV Systolic Volume Index (BP MOD) 19 ml/m2 8-24 LV EF (BP MOD) 60 % 54-74 LV Diastolic Length (4C) 7.7 cm LV Systolic Length (4C) 6.7 cm LV Stroke Volume (4C MOD) 49 ml Atria Name Value Normal LA Dimensions LA Volume (4C A-L) 48 ml LA Volume (BP A-L) 48 ml RA Dimensions RA Systolic Major [place] Length (4C) 5.1 cm 2.2-2.8 RA Area (4C) 14.6 cm2 <=18.0 Report Signatures
[2025-02-17 16:00] VITALS: BP 136/68; PULSE 68; RESP 20; TEMP 36.6; O2SAT 99
[2025-02-17] MEDS: ONDANSETRON INJ 4 MG/2 ML VIAL IV PUSH (17:15)
[2025-02-17 20:00] VITALS: PULSE 68; RESP 20; O2SAT 91
[2025-02-17] MEDS: HYDROmorphone HCL INJ (*CRX) 2 MG/ML VIAL 0.5 MG IV PUSH (21:06)
[2025-02-17] MEDS: SENNA/DOCUSATE SODIUM TABLET 1 TAB PO (21:07)
[2025-02-18] VITALS: BP 126/63; PULSE 68; RESP 18; TEMP 36.7; O2SAT 92
[2025-02-18] MEDS: SODIUM CHLORIDE 0.9% IV 1,000 ML 100 ML IV CONT ×3 (04:28→23:24)
[2025-02-18] MEDS: LEVOTHYROXINE SODIUM 112 MCG TABLET PO (05:38)
[2025-02-18] MEDS: GABAPENTIN 100 MG CAPSULE PO ×3 (05:38→20:12)
[2025-02-18] MEDS: APIXABAN 2.5 MG TABLET 10 MG PO ×2 (05:38→17:40)
[2025-02-18 05:41] LABS: Hematocrit 27.9 % (35.0-42.0); Hemoglobin 8.3 g/dL (11.7-13.8); Mean Corpuscular HGB Conc 29.7 g/dL (32-36); Mean Corpuscular Hemoglobin 29.5 pg (27.0-31.0); Mean Corpuscular Volume 99.3 fL (78.0-102.0); Platelet Count Result 283 K/mm3 (150-420); Red Blood Count 2.81 M/mm3 (4.20-5.40); White Blood Count 6.5 K/mm3 (4.8-10.8)
[2025-02-18 05:54] LABS: Band Neutrophils Percent 0 % (0-6); Basophils Absolute Manual 0.06 K/mm3 (0-0.1); Basophils Percent Manual 1 % (0-1); Eosinophils Absolute Manual 0.26 K/mm3 (0.02-0.50); Eosinophils Percent Manual 4 % (1-6); Lymphocytes Absolute Manual 1.04 K/mm3 (1.1-4.5); Lymphocytes Percent Manual 16 % (18-44); Metamyelocytes Percent 3 %; Monocytes Absolute Manual 0.78 K/mm3 (0.1-0.90); Monocytes Percent Manual 12 % (3-9); Neutrophils Absolute Manual 4.16 K/mm3 (1.3-6.7); Neutrophils Percent Manual 64 % (46-73)
[2025-02-18 06:00] LABS: Alanine Aminotransferase 15 U/L (6-35); Albumin Level 3.2 g/dL (3.5-5.1); Alkaline Phosphatase 110 U/L (38-126); Anion Gap 6 mmol/L (4-12); Aspartate Amino Transferase 21 U/L (14-36); Bilirubin,Total 0.3 mg/dL (0.2-1.3); Blood Urea Nitrogen 30 mg/dL (7-17); Calcium 7.8 mg/dL (8.4-10.2); Carbon Dioxide 23 mmol/L (22-30); Chloride 113 mmol/L (98-107); Estimated CRCL calculation 29 ml/min; Estimated Glomerular Filt Rate 34; Glucose 126 mg/dL (65-110); Magnesium 2.4 mg/dL (1.6-2.3); Osmolality Calculated 302 mOsm/kg (285-295); Potassium 4.1 mmol/L (3.4-5.0); Sodium 142 mmol/L (137-145); Total Protein 6.2 g/dL (6.3-8.2)
[2025-02-18 07:35] VITALS: BP 156/69; PULSE 79; RESP 20; TEMP 37.1; O2SAT 94
--- NOTE | 2025-02-18 07:37 | P.PNIM_ITS ---
Progress Note: A&P Assessment and Plan (1) Acute respiratory failure with hypoxia: Code(s): J96.01 - Acute respiratory failure with hypoxia Status: Acute Assessment and Plan: Patient presented with hypoxia at oxygen saturation at 87% was placed on 2L NC with improvement. * V/Q Scan :Nondiagnostic (low or intermediate probability) for pulmonary embolism. * CT abdomen and pelvis: no acute findings were noted in the abdomen but consolidation and patchy groundglass opacities in the left lower lobe which could be due to pneumonia although the region of groundglass opacity also raises possibility of pulmonary infarcts were noted * D-dimer obtained and 29 * started on PO Eliquis for suspected pulmonary embolism * wean to maintain 92% * patient on room air and maintaining oxygen saturations currently (2) Contusion of lung: Qualifiers: Encounter type: initial encounter Laterality: left Qualified Code(s): S27.321A - Contusion of lung, unilateral, initial encounter Code(s): S27.329A - Contusion of lung, unspecified, initial encounter Status: Acute Assessment and Plan: Secondary to fall * Oxygen as needed * Incentive spirometer * repeat CXR today without acute findings (3) Compression fracture of T10 vertebra: Qualifiers: Encounter type: initial encounter Qualified Code(s): S22.070A - Wedge compression fracture of T9-T10 vertebra, initial encounter for closed fracture Code(s): S22.070A - Wedge compression fracture of T9-T10 vertebra, initial encounter for closed fracture Status: Acute Assessment and Plan: Trauma work-up with ne acute T10 fracture, ED had spoken with patient Ortho/spine physician follow-up outpatient as scheduled. * ANALISA griffin * pain management * PT/OT recommending swing/rehab (4) Spinal surgery in prior 3 months: Code(s): Z98.890 - Other specified postprocedural states Status: Acute Assessment and Plan: See Above (5) TIFFANI (acute kidney injury): Code(s): N17.9 - Acute kidney failure, unspecified Status: Acute Assessment and Plan: Cr at 2.45 POA baseline 1.4 (CM obtaining OSH records for recent labs from patients admission in January) * s/p IV fluid bolus on 02/15 * trend renal failure * avoid nephrotoxin medications * 500 cc bolus followed by iv fluids started on 02/16 * BUN 30, cr 1.52 * continue IV fluids until tomorrow * AM labs (6) Hypothyroidism (acquired): Code(s): E03.9 - Hypothyroidism, unspecified Status: Acute Assessment and Plan: * Continued Levothyroxine (7) Hypertension: Code(s): I10 - Essential (primary) hypertension Status: Acute Assessment and Plan: * continued Losartan * home HCTZ is on hold d/t TIFFANI * Monitor BP per unit protocol (8) UTI (urinary tract infection): Code(s): N39.0 - Urinary tract infection, site not specified Status: Acute Assessment and Plan: UA suspicious for UTI * IV ceftriaxone * urine culture with e. coli, sensitivities pending * completed treatment (9) Constipation: Code(s): K59.00 - Constipation, unspecified Status: Acute Assessment and Plan: s/p CT abdomen and pelvis due to nausea and vomiting patient reports two large bowel movements a few days ago continue bowel regimen adjust bowel regimen, encourage ambulation (10) Pulmonary embolism: Code(s): I26.99 - Other pulmonary embolism without acute cor pulmonale Status: Acute Assessment and Plan: VQ Scan: Nondiagnostic (low or intermediate probability) for pulmonary embolism. CT abdomen and pelvis: no acute findings were noted in the abdomen but consolidation and patchy groundglass opacities in the left lower lobe which could be due to pneumonia although the region of groundglass opacity also raises possibility of pulmonary infarcts were noted D-dimer obtained and 29 start Eliquis for suspected pulmonary embolism venous dopplers were ordered and positive for bilateral DVTs ECHO ordered to rule out right heart strain, will be done this afternoon wean oxygen as tolerated, patient is on room air today (11) Acute deep vein thrombosis (DVT) of both lower extremities: Code(s): I82.403 - Acute embolism and thrombosis of unspecified deep veins of lower extremity, bilateral Status: Acute Assessment and Plan: bilateral venous dopplers showed thrombus with diminished flow noted in the right peroneal vein, the left common femoral, the left femoral, the left popliteal, the left posterior tibial and the left peroneal veins patient was started on Eliquis 10 mg PO BID BLE without edema, pain monitor neurovascular status (12) Pneumonia of left lower lobe due to infectious organism: Code(s): J18.9 - Pneumonia, unspecified organism Status: Acute Assessment and Plan: continue IV ceftriaxone continue IV azithromycin MRSA swab positive start IV doxycycline collect sputum culture if able wean oxygen as tolerated repeat CXR today without acute findings (13) Rhabdomyolysis: Qualifiers: Encounter type: initial encounter Rhabdomyolysis type: traumatic Qualified Code(s): T79.6XXA - Traumatic ischemia of muscle, initial encounter Code(s): M62.82 - Rhabdomyolysis Status: Acute Assessment and Plan: CK 193 on admission CK 158 /15 CK 91 /16, WNL IV fluids improved Subjective Date/time seen: 02/18/25 07:37 Interval history: Patient seen for a follow up visit. Patient sitting in the chair, in no acute distress. Patient reports she had 10/10 pain earlier in the AM after doing some lower extremity exercises in the bed. Patient was given IV dilaudid with improvement in pain. Patient reported nausea this morning and received reglan with adequate releif. Patient participates in rehab. Patient had a repeat CXR this morning which showed clear lungs. Patient on room air and maintaining oxygen saturations > 92% at this time. Patient with some constipation, bowel regimen adjusted. Review of Systems Review of Systems: All systems reviewed & are unremarkable except as noted in HPI and below Neurologic: Reports Abnormal speech present (slow to respond reported baseline) Exam Const: General: comfortable and no acute distress Orientation/consciousness: oriented to person, oriented to place and oriented to time Other: Pleasant female HENMT: Mouth: Yes moist mucous membranes Eyes: General: appearance normal, both eyes and all related structures Sclera: sclerae normal Pupils: Equal, round and reactive pupils present Neck: Neck: supple and no JVD Resp: Effort & Inspection: normal respiratory effort Auscultation: clear to auscultation bilaterally Cardio: Rate: regular rate Rhythm: regular rhythm GI: Auscultation: normal bowel sounds Skin: General skin exam: normal color, no rashes or lesions noted and wounds noted Wounds: wounds noted Other: Spinal incision healed no erythema or drainage Neuro: General: oriented to person, oriented to place, oriented to time and Unable to assess gait Cranial nerves: Yes Equal, round and reactive pupils present Cognition (Neuro): normal cognition Speech: Abnormal speech present (slow to respond reported baseline) Gait exam (Neuro): Unable to assess gait Sensory Exam: normal sensation Extrem: General: normal to inspection Psych: Mental Status: mental status grossly normal Affect: normal affect Objective Data Vital Signs Vital Signs: Vital Signs - 24 hr 02/17/25 08:00 02/17/25 16:00 02/17/25 20:00 Temperature 97.8 F 97.9 F Pulse Rate 70 68 68 Respiratory Rate 18 20 20 Blood Pressure 146/67 H 136/68 Pulse Oximetry 96 99 91 Oxygen Delivery Nasal Cannula Nasal Cannula Room Air Oxygen Flow Rate 1 1 02/18/25 00:00 Temperature 98.1 F Pulse Rate 68 Respiratory Rate 18 Blood Pressure 126/63 Pulse Oximetry 92 Oxygen Delivery Room Air Oxygen Flow Rate Intake/Output Intake/Output: Intake & Output 02/15/25 02/16/25 02/17/25 02/18/25 23:59 23:59 23:59 23:59 Intake Total 1830 2772.3 3770 1360 Output Total 400 1150 900 Balance 1430 2772.3 2620 460 Meds/Results Medications: Active Medications Generic Name Dose Route Start Last Admin Trade Name Yuryq PRN Reason Stop Dose Admin Acetaminophen 650 mg 02/13/25 11:34 02/16/25 08:47 Acetaminophen 325 Mg Tablet PO 650 mg Q4H PRN Administration Mild Pain (1-3) or Fever Apixaban 10 mg 02/16/25 18:00 02/18/25 05:38 Apixaban 2.5 Mg Tablet PO 02/23/25 06:01 10 mg Q12H BONITA Administration Apixaban 5 mg 02/23/25 18:00 Apixaban 2.5 Mg Tablet PO Q12H BONITA Diazepam 2.5 mg 02/13/25 11:39 02/15/25 04:30 Diazepam Inj (*Crx) 10 Mg/2 Ml Syringe IV PUSH 2.5 mg Q8HR PRN Administration Muscle Spasm Gabapentin 100 mg 02/13/25 14:00 02/18/25 05:38 Gabapentin 100 Mg Capsule PO 100 mg Q8H BONITA Administration Hydrochlorothiazide 12.5 mg 02/14/25 09:00 02/15/25 08:52 Hydrochlorothiazide 12.5 Mg Capsule PO 12.5 mg On Hold: 02/15/25 09:10 QAM BONITA Administration Hydromorphone HCl 0.5 mg 02/17/25 18:59 02/17/25 21:06 Hydromorphone Hcl Inj (*Crx) 2 Mg/Ml Vial IV PUSH 0.5 mg Q6HR PRN Administration Pain Rated 7-10 Ceftriaxone Sodium 1 gm/ 50 mls @ 100 mls/hr 02/13/25 14:00 02/17/25 13:55 Sodium Chloride IVPB Infused Q24H BONITA Infusion Sodium Chloride 1,000 mls @ 100 mls/hr 02/16/25 12:30 02/18/25 04:28 Normal Saline Iv IV CONT 100 mls/hr .Q10H BONITA Administration Doxycycline Hyclate 100 mg/ 100 mls @ 100 mls/hr 02/17/25 10:00 02/17/25 22:05 Sodium Chloride IVPB 02/23/25 21:59 Infused Q12HR BONITA Infusion Levothyroxine Sodium 112 mcg 02/14/25 06:30 02/18/25 05:38 Levothyroxine Sodium 112 Mcg Tablet PO 112 mcg DAILY@0630 BONITA Administration Losartan Potassium 100 mg 02/14/25 09:00 02/17/25 09:07 Losartan Potassium 50 Mg Tablet PO 100 mg QAM BONITA Administration Metoclopramide HCl 5 mg 02/14/25 15:56 02/17/25 21:06 Metoclopramide Hcl Inj 10 Mg/2 Ml Vial IV PUSH 5 mg Q6HR PRN Administration Nausea And Vomiting Mupirocin 1 applic 02/17/25 09:00 02/17/25 21:07 Mupirocin 2% Oint 22 Gm Tube EACH NARE 02/21/25 21:01 1 applic Q12HR BONITA Administration Ondansetron HCl 4 mg 02/13/25 11:34 02/17/25 17:15 Ondansetron Inj 4 Mg/2 Ml Vial IV PUSH 4 mg Q6H PRN Administration Nausea And Vomiting Oxycodone HCl 2.5 mg 02/15/25 09:09 02/17/25 17:15 Oxycodone Hcl (*Crx) 2.5 Mg Tab Ir PO 2.5 mg Q6HR PRN Administration Pain Rated 4-6 Perflutren Lipid Microsphere 0 ml 02/16/25 20:32 Perflutren Lipid Microspheres 1.5 Ml Vial Diluted To 10 Ml Total Volume IV PUSH 02/19/25 20:32 ONCE PRN adequate visualization Protocol Polyethylene Glycol 17 gm 02/14/25 09:00 02/17/25 09:06 Polyethylene Glycol 3350 17 Gm Powd.Pack PO 17 gm QAM BONITA Administration Promethazine HCl 12.5 mg 02/17/25 11:15 Promethazine Hcl 12.5 Mg Tablet PO Q6H PRN Nausea And Vomiting Senna/Docusate Sodium 1 tab 02/13/25 21:00 02/17/25 21:07 Senna/Docusate Sodium Tablet PO 1 tab HS BONITA Administration Sumatriptan Succinate 100 mg 02/13/25 11:33 Sumatriptan Succinate 25 Mg Tablet PO DAILY PRN Headache Topiramate 100 mg 02/14/25 09:00 02/17/25 09:07 Topiramate 100 Mg Tablet PO 100 mg DAILY BONITA Administration Verapamil HCl 120 mg 02/13/25 21:00 02/17/25 21:07 Verapamil Hcl Er 120 Mg Tablet PO 120 mg Q12HR BONITA Administration Radiology Results: ITS Impressions Chest X-Ray 02/13/25 07:37 IMPRESSION: 1. Left basilar atelectasis. Contusion not excluded. 2. Otherwise no acute cardiopulmonary findings given portable technique. Cervical Spine CT 02/13/25 07:38 IMPRESSION: HEAD: 1. No acute intracranial findings. C-SPINE: 1. No acute fracture. 2. Degenerative and chronic findings as above. Head CT 02/13/25 07:38 IMPRESSION: HEAD: 1. No acute intracranial findings. C-SPINE: 1. No acute fracture. 2. Degenerative and chronic findings as above. Thoracic/Lumbar Spine CT 02/13/25 08:42 IMPRESSION: 1. Age-indeterminate compression fracture of T10, new from 05/08/2022. 2. Mild thoracic spondylosis and severe lumbar spondylosis. 3. Posterior fusion procedure from T10 to the sacrum and iliac bones. 4. Airspace and groundglass opacities in left lung lower lobe with volume loss, consistent with atelectasis versus pneumonia. Pulmonary Perfusion Imaging 02/14/25 10:56 IMPRESSION: 1. Nondiagnostic (low or intermediate probability) for pulmonary embolism. Abdomen/Pelvis CT 02/15/25 10:12 IMPRESSION: 1. No acute intra-abdominal/pelvic process. 2. Consolidation and patchy groundglass opacities in the left lower lobe which could be due to pneumonia although the region of groundglass opacity also raises possibility of pulmonary infarcts. Venous Doppler Study 02/16/25 14:47 Impression: Bilateral DVT detailed above Labs Labs: Laboratory Results - last 24 hr 02/16/25 02/18/25 06:39 05:25 WBC 6.5 RBC 2.81 L Hgb 8.3 L Hct 27.9 L MCV 99.3 MCH 29.5 MCHC 29.7 L RDW 17.5 H Plt Count 283 MPV 8.3 L Immature Gran % (Auto) Not Reportable Neut % (Auto) Not Reportable Lymph % (Auto) Not Reportable [place] % (Auto) Not Reportable Eos % (Auto) Not Reportable Baso % (Auto) Not Reportable Lymph # (Auto) Not Reportable [place] # (Auto) Not Reportable Eos # (Auto) Not Reportable Baso # (Auto) Not Reportable Abs Immat Gran (auto) Not Reportable Absolute Neuts (auto) Not Reportable Absolute Nucleated RBC Not Reportable Neutrophils % (Manual) 64 Band Neutrophils % 0 Lymphocytes % (Manual) 16 L Monocytes % (Manual) 12 H Eosinophils % (Manual) 4 Basophils % (Manual) 1 Metamyelocytes % 3 Nucleated RBC % Not Reportable Abs Neuts (Manual) 4.16 Abs Lymphs (Manual) 1.04 L Abs Monocytes (Manual) 0.78 Absolute Eos (Manual) 0.26 Abs Basophils (Manual) 0.06 Platelet Estimate Adequate Schistocytes Not Reportable Sodium 142 Potassium 4.1 Chloride 113 H Carbon Dioxide 23 Anion Gap 6 BUN 30 H D Creatinine 1.52 H Estim Creat Clear Calc 29 Estimated GFR 34 L Glucose 126 H Calculated Osmolality 302 H Calcium 7.8 L Magnesium 2.4 H Total Bilirubin 0.3 AST 21 ALT 15 Alkaline Phosphatase 110 Total Protein 6.2 L Albumin 3.2 L Nasal MRSA (PCR) Detected A* Quality VTE Prophylaxis VTE prophylaxis: pharmacologic ordered
[2025-02-18] MEDS: HYDROmorphone HCL INJ (*CRX) 2 MG/ML VIAL 0.5 MG IV PUSH ×2 (08:10→14:46)
[2025-02-18] MEDS: TOPIRAMATE 100 MG TABLET PO (08:11)
[2025-02-18] MEDS: VERAPAMIL HCL ER 120 MG TABLET PO ×2 (08:11→20:12)
[2025-02-18] MEDS: MUPIROCIN 2% OINT 22 GM TUBE 1 APPLIC EACH NARE ×2 (08:11→20:13)
[2025-02-18] MEDS: LOSARTAN POTASSIUM 50 MG TABLET 100 MG PO (08:11)
[2025-02-18] MEDS: DOXYCYCLINE IV 100 MG in SODIUM CHLORIDE 0.9% IV 100 ML IVPB ×2 (08:12→20:12)
--- NOTE | 2025-02-18 09:46 | WNDPHOTO ---
PHOTO ONLY - See Nursing Notes and/ or assessments for documentation.
[2025-02-18] MEDS: METOCLOPRAMIDE HCL INJ 10 MG/2 ML VIAL 5 MG IV PUSH (10:00)
--- NOTE | 2025-02-18 10:18 | PC.NURSE ---
Returned from imaging via wheelchair
[2025-02-18] MEDS: PROMETHAZINE HCL 12.5 MG TABLET PO (11:50)
[2025-02-18] MEDS: oxyCODONE HCL (*CRX) 5 MG TAB IR PO ×2 (11:50→19:33)
[2025-02-18] MEDS: cefTRIAXone 1 GM in SODIUM CHLORIDE 0.9% IV 50 ML 100 ML IVPB (13:25)
[2025-02-18 16:00] VITALS: BP 145/76; PULSE 84; RESP 16; TEMP 36.8; O2SAT 96
[2025-02-18] MEDS: SENNA/DOCUSATE SODIUM TABLET 1 TAB PO (20:12)
--- NOTE | 2025-02-18 21:01 | PC.NURSE ---
Pt requested to have HS meds w/2200 gabapentin.
[2025-02-19] VITALS: BP 140/73; PULSE 76; RESP 17; TEMP 36.4; O2SAT 95
[2025-02-19] MEDS: oxyCODONE HCL (*CRX) 5 MG TAB IR PO ×3 (01:47→17:41)
[2025-02-19] MEDS: LEVOTHYROXINE SODIUM 112 MCG TABLET PO (05:32)
[2025-02-19] MEDS: GABAPENTIN 100 MG CAPSULE PO ×3 (05:32→21:50)
[2025-02-19] MEDS: APIXABAN 2.5 MG TABLET 10 MG PO ×2 (05:32→16:44)
[2025-02-19 06:49] LABS: Hematocrit 27.2 % (35.0-42.0); Hemoglobin 8.2 g/dL (11.7-13.8); Mean Corpuscular HGB Conc 30.1 g/dL (32-36); Mean Corpuscular Hemoglobin 29.4 pg (27.0-31.0); Mean Corpuscular Volume 97.5 fL (78.0-102.0); Platelet Count Result 279 K/mm3 (150-420); Red Blood Count 2.79 M/mm3 (4.20-5.40); White Blood Count 7.1 K/mm3 (4.8-10.8)
[2025-02-19 07:01] LABS: Alanine Aminotransferase 15 U/L (6-35); Albumin Level 3.1 g/dL (3.5-5.1); Alkaline Phosphatase 94 U/L (38-126); Anion Gap 6 mmol/L (4-12); Aspartate Amino Transferase 26 U/L (14-36); Bilirubin,Total 0.3 mg/dL (0.2-1.3); Blood Urea Nitrogen 18 mg/dL (7-17); Calcium 8.1 mg/dL (8.4-10.2); Carbon Dioxide 22 mmol/L (22-30); Chloride 117 mmol/L (98-107); Estimated CRCL calculation 38 ml/min; Estimated Glomerular Filt Rate 47; Glucose 107 mg/dL (65-110); Osmolality Calculated 301 mOsm/kg (285-295); Potassium 4.3 mmol/L (3.4-5.0); Sodium 145 mmol/L (137-145); Total Protein 6.2 g/dL (6.3-8.2)
[2025-02-19 07:26] VITALS: BP 153/72; PULSE 80; RESP 18; TEMP 37.2; O2SAT 94
[2025-02-19 07:58] LABS: Band Neutrophils Percent 0 % (0-6); Basophils Absolute Manual 0.07 K/mm3 (0-0.1); Basophils Percent Manual 1 % (0-1); Eosinophils Absolute Manual 0.07 K/mm3 (0.02-0.50); Eosinophils Percent Manual 1 % (1-6); Lymphocytes Absolute Manual 0.99 K/mm3 (1.1-4.5); Lymphocytes Percent Manual 14 % (18-44); Monocytes Absolute Manual 0.85 K/mm3 (0.1-0.90); Monocytes Percent Manual 12 % (3-9); Neutrophils Absolute Manual 5.11 K/mm3 (1.3-6.7); Neutrophils Percent Manual 72 % (46-73); Schistocytes None Seen; Total Cells Counted 100
[2025-02-19 08:00] VITALS: PULSE 80; RESP 18; O2SAT 94
[2025-02-19 08:07] LABS: Magnesium 2.0 mg/dL (1.6-2.3)
[2025-02-19] MEDS: DOXYCYCLINE IV 100 MG in SODIUM CHLORIDE 0.9% IV 100 ML IVPB ×2 (08:21→21:51)
[2025-02-19] MEDS: TOPIRAMATE 100 MG TABLET PO (08:25)
[2025-02-19] MEDS: MUPIROCIN 2% OINT 22 GM TUBE 1 APPLIC EACH NARE ×2 (08:25→21:56)
[2025-02-19] MEDS: LOSARTAN POTASSIUM 50 MG TABLET 100 MG PO (08:25)
[2025-02-19] MEDS: VERAPAMIL HCL ER 120 MG TABLET PO ×2 (08:25→21:50)
[2025-02-19] MEDS: SENNA/DOCUSATE SODIUM TABLET 1 TAB PO ×2 (09:50→16:44)
--- NOTE | 2025-02-19 10:40 | P.PNIM_ITS ---
Progress Note: A&P Assessment and Plan (1) Acute respiratory failure with hypoxia: Code(s): J96.01 - Acute respiratory failure with hypoxia Status: Acute Assessment and Plan: Patient presented with hypoxia at oxygen saturation at 87% was placed on 2L NC with improvement. * V/Q Scan :Nondiagnostic (low or intermediate probability) for pulmonary embolism. * CT abdomen and pelvis: no acute findings were noted in the abdomen but consolidation and patchy groundglass opacities in the left lower lobe which could be due to pneumonia although the region of groundglass opacity also raises possibility of pulmonary infarcts were noted * D-dimer obtained and 29 * started on PO Eliquis for suspected pulmonary embolism * wean to maintain 92% * patient on room air and maintaining oxygen saturations currently (2) Contusion of lung: Qualifiers: Encounter type: initial encounter Laterality: left Qualified Code(s): S27.321A - Contusion of lung, unilateral, initial encounter Code(s): S27.329A - Contusion of lung, unspecified, initial encounter Status: Acute Assessment and Plan: Secondary to fall * Oxygen as needed * Incentive spirometer * repeat CXR 02/18 without acute findings (3) Compression fracture of T10 vertebra: Qualifiers: Encounter type: initial encounter Qualified Code(s): S22.070A - Wedge compression fracture of T9-T10 vertebra, initial encounter for closed fracture Code(s): S22.070A - Wedge compression fracture of T9-T10 vertebra, initial encounter for closed fracture Status: Acute Assessment and Plan: Trauma work-up with ne acute T10 fracture, ED had spoken with patient Ortho/spine physician follow-up outpatient as scheduled. * ANALISA griffin * pain management * PT/OT recommending swing/rehab (4) Spinal surgery in prior 3 months: Code(s): Z98.890 - Other specified postprocedural states Status: Acute Assessment and Plan: See Above (5) TIFFANI (acute kidney injury): Code(s): N17.9 - Acute kidney failure, unspecified Status: Acute Assessment and Plan: Cr at 2.45 POA baseline 1.4 (CM obtaining OSH records for recent labs from patients admission in January) * s/p IV fluid bolus on 02/15 * trend renal failure * avoid nephrotoxin medications * 500 cc bolus followed by iv fluids started on 02/16 * BUN 18, cr 1.14, improved to baseline * D/C IV fluids * AM labs (6) Hypothyroidism (acquired): Code(s): E03.9 - Hypothyroidism, unspecified Status: Acute Assessment and Plan: * Continued Levothyroxine (7) Hypertension: Code(s): I10 - Essential (primary) hypertension Status: Acute Assessment and Plan: * continued Losartan * home HCTZ is on hold d/t TIFFANI * Monitor BP per unit protocol (8) UTI (urinary tract infection): Code(s): N39.0 - Urinary tract infection, site not specified Status: Acute Assessment and Plan: UA suspicious for UTI * IV ceftriaxone * urine culture with e. coli, sensitivities pending * completed treatment (9) Constipation: Code(s): K59.00 - Constipation, unspecified Status: Acute Assessment and Plan: s/p CT abdomen and pelvis due to nausea and vomiting patient reports two large bowel movements a few days ago continue bowel regimen adjust bowel regimen, encourage ambulation (10) Pulmonary embolism: Code(s): I26.99 - Other pulmonary embolism without acute cor pulmonale Status: Acute Assessment and Plan: VQ Scan: Nondiagnostic (low or intermediate probability) for pulmonary embolism. CT abdomen and pelvis: no acute findings were noted in the abdomen but consolidation and patchy groundglass opacities in the left lower lobe which could be due to pneumonia although the region of groundglass opacity also raises possibility of pulmonary infarcts were noted D-dimer obtained and 29 start Eliquis for suspected pulmonary embolism venous dopplers were ordered and positive for bilateral DVTs ECHO reviewed, G1DD wean oxygen as tolerated, patient is on room air today (11) Acute deep vein thrombosis (DVT) of both lower extremities: Code(s): I82.403 - Acute embolism and thrombosis of unspecified deep veins of lower extremity, bilateral Status: Acute Assessment and Plan: bilateral venous dopplers showed thrombus with diminished flow noted in the right peroneal vein, the left common femoral, the left femoral, the left popliteal, the left posterior tibial and the left peroneal veins patient was started on Eliquis 10 mg PO BID BLE without edema, pain monitor neurovascular status (12) Pneumonia of left lower lobe due to infectious organism: Code(s): J18.9 - Pneumonia, unspecified organism Status: Acute Assessment and Plan: continue IV ceftriaxone continue IV azithromycin MRSA swab positive start IV doxycycline collect sputum culture if able wean oxygen as tolerated repeat CXR 02/18 without acute findings switch to PO abx tomorrow (13) Rhabdomyolysis: Qualifiers: Encounter type: initial encounter Rhabdomyolysis type: traumatic Qualified Code(s): T79.6XXA - Traumatic ischemia of muscle, initial encounter Code(s): M62.82 - Rhabdomyolysis Status: Acute Assessment and Plan: CK 193 on admission CK 158 02/16 CK 91 02/17, WNL IV fluids improved Subjective Date/time seen: 02/19/25 10:40 Interval history: Patient seen for a follow up visit. Patient sitting in the chair, in no acute distress. Patient reports pain is more controlled today. Patient still with na usea but is tolerating diet.Creatinine at patients baseline, stop IV fluids. Patient is participating in PT/OT. Patient still tolerating room air without oxygen. Patient still reports no bowel movement, further adjustments made to bowel regimen. Plan to change antibiotics to PO tomorrow. Patient will need rehab on discharge, plan is to obtain insurance auth for swing bed. Review of Systems Review of Systems: All systems reviewed & are unremarkable except as noted in HPI and below Neurologic: Reports Abnormal speech present (slow to respond reported baseline) Exam Const: General: comfortable and no acute distress Orientation/consciousness: oriented to person, oriented to place and oriented to time Other: Pleasant female HENMT: Mouth: Yes moist mucous membranes Eyes: General: appearance normal, both eyes and all related structures Sclera: sclerae normal Pupils: Equal, round and reactive pupils present Neck: Neck: supple and no JVD Resp: Effort & Inspection: normal respiratory effort Auscultation: clear to auscultation bilaterally Cardio: Rate: regular rate Rhythm: regular rhythm GI: Auscultation: normal bowel sounds Skin: General skin exam: normal color, no rashes or lesions noted and wounds noted Wounds: wounds noted Other: Spinal incision healed no erythema or drainage Neuro: General: oriented to person, oriented to place, oriented to time and Unable to assess gait Cranial nerves: Yes Equal, round and reactive pupils present Cognition (Neuro): normal cognition Speech: Abnormal speech present (slow to respond reported baseline) Gait exam (Neuro): Unable to assess gait Sensory Exam: normal sensation Extrem: General: normal to inspection Psych: Mental Status: mental status grossly normal Affect: normal affect Objective Data Vital Signs Vital Signs: Vital Signs - 24 hr 02/18/25 16:00 02/19/25 00:00 02/19/25 07:26 Temperature 98.2 F 97.5 F L 98.9 F Pulse Rate 84 76 80 Respiratory Rate 16 17 18 Blood Pressure 145/76 H 140/73 153/72 H Pulse Oximetry 96 95 94 Oxygen Delivery Room Air Room Air Room Air 02/19/25 08:00 Temperature Pulse Rate 80 Respiratory Rate 18 Blood Pressure Pulse Oximetry 94 Oxygen Delivery Room Air Intake/Output Intake/Output: Intake & Output 02/16/25 02/17/25 02/18/25 02/19/25 23:59 23:59 23:59 23:59 Intake Total 2772.3 3770 4840 1680 Output Total 1150 2700 1800 Balance 2772.3 2620 2140 -120 Meds/Results Medications: Active Medications Generic Name Dose Route Start Last Admin Trade Name Yuryq PRN Reason Stop Dose Admin Acetaminophen 650 mg 02/13/25 11:34 02/16/25 08:47 Acetaminophen 325 Mg Tablet PO 650 mg Q4H PRN Administration Mild Pain (1-3) or Fever Apixaban 10 mg 02/16/25 18:00 02/19/25 05:32 Apixaban 2.5 Mg Tablet PO 02/23/25 06:01 10 mg Q12H BONITA Administration Apixaban 5 mg 02/23/25 18:00 Apixaban 2.5 Mg Tablet PO Q12H BONITA Diazepam 2.5 mg 02/13/25 11:39 02/15/25 04:30 Diazepam Inj (*Crx) 10 Mg/2 Ml Syringe IV PUSH 2.5 mg Q8HR PRN Administration Muscle Spasm Gabapentin 100 mg 02/13/25 14:00 02/19/25 05:32 Gabapentin 100 Mg Capsule PO 100 mg Q8H BONITA Administration Hydrochlorothiazide 12.5 mg 02/14/25 09:00 02/15/25 08:52 Hydrochlorothiazide 12.5 Mg Capsule PO 12.5 mg On Hold: 02/15/25 09:10 QAM BONITA Administration Hydromorphone HCl 0.25 mg 02/19/25 09:08 Hydromorphone Hcl Inj (*Crx) 2 Mg/Ml Vial IV PUSH Q6HR PRN Pain Rated 7-10 Ceftriaxone Sodium 1 gm/ 50 mls @ 100 mls/hr 02/13/25 14:00 02/18/25 13:55 Sodium Chloride IVPB Infused Q24H BONITA Infusion Doxycycline Hyclate 100 mg/ 100 mls @ 100 mls/hr 02/17/25 10:00 02/19/25 09:21 Sodium Chloride IVPB 02/23/25 21:59 Infused Q12HR BONITA Infusion Levothyroxine Sodium 112 mcg 02/14/25 06:30 02/19/25 05:32 Levothyroxine Sodium 112 Mcg Tablet PO 112 mcg DAILY@0630 BONITA Administration Losartan Potassium 100 mg 02/14/25 09:00 02/19/25 08:25 Losartan Potassium 50 Mg Tablet PO 100 mg QAM BONITA Administration Magnesium Hydroxide 30 ml 02/19/25 09:08 Magnesium Hydroxide Susp 30 Ml Udc PO QAM PRN Constipation Metoclopramide HCl 5 mg 02/14/25 15:56 02/18/25 10:00 Metoclopramide Hcl Inj 10 Mg/2 Ml Vial IV PUSH 5 mg Q6HR PRN Administration Nausea And Vomiting Mupirocin 1 applic 02/17/25 09:00 02/19/25 08:25 Mupirocin 2% Oint 22 Gm Tube EACH NARE 02/21/25 21:01 1 applic Q12HR BONITA Administration Ondansetron HCl 4 mg 02/13/25 11:34 02/17/25 17:15 Ondansetron Inj 4 Mg/2 Ml Vial IV PUSH 4 mg Q6H PRN Administration Nausea And Vomiting Oxycodone HCl 5 mg 02/18/25 10:08 02/19/25 08:25 Oxycodone Hcl (*Crx) 5 Mg Tab Ir PO 5 mg Q6HR PRN Administration Pain Rated 4-6 Perflutren Lipid Microsphere 0 ml 02/16/25 20:32 Perflutren Lipid Microspheres 1.5 Ml Vial Diluted To 10 Ml Total Volume IV PUSH 02/19/25 20:32 ONCE PRN adequate visualization Protocol Polyethylene Glycol 17 gm 02/14/25 09:00 02/19/25 08:24 Polyethylene Glycol 3350 17 Gm Powd.Pack PO 17 gm QAM BONITA Administration Promethazine HCl 12.5 mg 02/17/25 11:15 02/18/25 11:50 Promethazine Hcl 12.5 Mg Tablet PO 12.5 mg Q6H PRN Administration Nausea And Vomiting Senna/Docusate Sodium 1 tab 02/19/25 09:30 02/19/25 09:50 Senna/Docusate Sodium Tablet PO 1 tab BID BONITA Administration Sumatriptan Succinate 100 mg 02/13/25 11:33 Sumatriptan Succinate 25 Mg Tablet PO DAILY PRN Headache Topiramate 100 mg 02/14/25 09:00 02/19/25 08:25 Topiramate 100 Mg Tablet PO 100 mg DAILY BONITA Administration Verapamil HCl 120 mg 02/13/25 21:00 02/19/25 08:25 Verapamil Hcl Er 120 Mg Tablet PO 120 mg Q12HR BONITA Administration Radiology Results: ITS Impressions Cervical Spine CT 02/13/25 07:38 IMPRESSION: HEAD: 1. No acute intracranial findings. C-SPINE: 1. No acute fracture. 2. Degenerative and chronic findings as above. Head CT 02/13/25 07:38 IMPRESSION: HEAD: 1. No acute intracranial findings. C-SPINE: 1. No acute fracture. 2. Degenerative and chronic findings as above. Thoracic/Lumbar Spine CT 02/13/25 08:42 IMPRESSION: 1. Age-indeterminate compression fracture of T10, new from 05/08/2022. 2. Mild thoracic spondylosis and severe lumbar spondylosis. 3. Posterior fusion procedure from T10 to the sacrum and iliac bones. 4. Airspace and groundglass opacities in left lung lower lobe with volume loss, consistent with atelectasis versus pneumonia. Pulmonary Perfusion Imaging 02/14/25 10:56 IMPRESSION: 1. Nondiagnostic (low or intermediate probability) for pulmonary embolism. Abdomen/Pelvis CT 02/15/25 10:12 IMPRESSION: 1. No acute intra-abdominal/pelvic process. 2. Consolidation and patchy groundglass opacities in the left lower lobe which could be due to pneumonia although the region of groundglass opacity also raises possibility of pulmonary infarcts. Venous Doppler Study 02/16/25 14:47 Impression: Bilateral DVT detailed above Chest X-Ray 02/18/25 10:34 Impression: No acute cardiopulmonary abnormality. Labs Labs: Laboratory Results - last 24 hr 02/19/25 02/19/25 06:34 06:39 WBC 7.1 RBC 2.79 L Hgb 8.2 L Hct 27.2 L MCV 97.5 MCH 29.4 MCHC 30.1 L RDW 17.4 H Plt Count 279 MPV 8.1 L Immature Gran % (Auto) Not Reportable Neut % (Auto) Not Reportable Lymph % (Auto) Not Reportable [place] % (Auto) Not Reportable Eos % (Auto) Not Reportable Baso % (Auto) Not Reportable Lymph # (Auto) Not Reportable [place] # (Auto) Not Reportable Eos # (Auto) Not Reportable Baso # (Auto) Not Reportable Abs Immat Gran (auto) Not Reportable Absolute Neuts (auto) Not Reportable Absolute Nucleated RBC Not Reportable Total Counted 100 Neutrophils % (Manual) 72 Band Neutrophils % 0 Lymphocytes % (Manual) 14 L Monocytes % (Manual) 12 H Eosinophils % (Manual) 1 Basophils % (Manual) 1 Nucleated RBC % Not Reportable Abs Neuts (Manual) 5.11 Abs Lymphs (Manual) 0.99 L Abs Monocytes (Manual) 0.85 Absolute Eos (Manual) 0.07 Abs Basophils (Manual) 0.07 Platelet Estimate Adequate Schistocytes None seen Sodium 145 Potassium 4.3 Chloride 117 H Carbon Dioxide 22 Anion Gap 6 BUN 18 H D Creatinine 1.14 H Estim Creat Clear Calc 38 Estimated GFR 47 L Glucose 107 Calculated Osmolality 301 H Calcium 8.1 L Magnesium 2.0 Total Bilirubin 0.3 AST 26 ALT 15 Alkaline Phosphatase 94 Total Protein 6.2 L Albumin 3.1 L Quality VTE Prophylaxis VTE prophylaxis: pharmacologic ordered
[2025-02-19] MEDS: ONDANSETRON INJ 4 MG/2 ML VIAL IV PUSH (12:41)
[2025-02-19] MEDS: HYDROmorphone HCL INJ (*CRX) 2 MG/ML VIAL 0.25 MG IV PUSH ×2 (12:43→21:56)
[2025-02-19] MEDS: cefTRIAXone 1 GM in SODIUM CHLORIDE 0.9% IV 50 ML 100 ML IVPB (12:50)
[2025-02-19 16:00] VITALS: BP 141/76; PULSE 79; RESP 18; TEMP 36.9; O2SAT 92
[2025-02-19] MEDS: ACETAMINOPHEN 325 MG TABLET 650 MG PO (16:44)
[2025-02-19] MEDS: diazePAM INJ (*CRX) 10 MG/2 ML SYRINGE 2.5 MG IV PUSH (21:57)
--- NOTE | 2025-02-19 22:15 | PC.NURSE ---
Pt experienced a brief catatonic state for roughly 20 seconds. RN was talking w/the pt and realized once the pt had
--- NOTE | 2025-02-19 22:34 | PC.NURSE ---
Pt experienced a brief catatonic state in which the pt would look at this RN, but not respond. RN immediately placed the pulse oximetry device onto the pt's finger, and found it to be at 88%. Calling for assistance, Brielle Cueva RN came to assist this RN while simultaneously place the pt on NC. Pt still had her eyes open and RN performed sternal rub, and the pt began to speak again. Once the pt began to speak her spO2 levels started to rise. Pt placed back on RA and is at 95%. RN asked the pt if she had periods of spacing out to which the pt responded yes, but was unsure of how frequent. performance improvement analyst, Diana Domínguez RN, notified and she also placed a call to Elisha CABRAL notifying her of the pt's condition. No new orders placed. Bed in lowest position, side railsx3, bed alarm on, call light and pt belongings near pt for safety.
[2025-02-19 23:49] VITALS: BP 161/70; PULSE 75; RESP 18; TEMP 36.6; O2SAT 97
[2025-02-20 06:11] LABS: Hematocrit 28.1 % (35.0-42.0); Hemoglobin 8.5 g/dL (11.7-13.8); Immature Granulocyte Percent A 3.2 % (0.0-0.0); Lymphocytes Absolute Auto 1.14 K/mm3 (1.10-4.50); Mean Corpuscular HGB Conc 30.2 g/dL (32-36); Mean Corpuscular Hemoglobin 29.6 pg (27.0-31.0); Mean Corpuscular Volume 97.9 fL (78.0-102.0); Nucleated Red Blood Cells Absolute Auto 0.00 K/mm3 (0.00-0.00); Nucleated Red Blood Cells Perc 0.0 % (0-0.0); Platelet Count Result 304 K/mm3 (150-420); Red Blood Count 2.87 M/mm3 (4.20-5.40); White Blood Count 7.8 K/mm3 (4.8-10.8)
[2025-02-20] MEDS: GABAPENTIN 100 MG CAPSULE PO ×3 (06:16→21:05)
[2025-02-20] MEDS: APIXABAN 2.5 MG TABLET 10 MG PO ×2 (06:16→17:32)
[2025-02-20] MEDS: LEVOTHYROXINE SODIUM 112 MCG TABLET PO (06:17)
[2025-02-20] MEDS: oxyCODONE HCL (*CRX) 5 MG TAB IR PO ×3 (06:17→21:05)
[2025-02-20 06:38] LABS: Magnesium 1.9 mg/dL (1.6-2.3)
[2025-02-20 06:41] LABS: Alanine Aminotransferase 15 U/L (6-35); Albumin Level 3.3 g/dL (3.5-5.1); Alkaline Phosphatase 94 U/L (38-126); Anion Gap 5 mmol/L (4-12); Aspartate Amino Transferase 30 U/L (14-36); Bilirubin,Total 0.4 mg/dL (0.2-1.3); Blood Urea Nitrogen 17 mg/dL (7-17); Calcium 8.9 mg/dL (8.4-10.2); Carbon Dioxide 25 mmol/L (22-30); Chloride 115 mmol/L (98-107); Estimated CRCL calculation 39 ml/min; Estimated Glomerular Filt Rate 49; Glucose 110 mg/dL (65-110); Osmolality Calculated 302 mOsm/kg (285-295); Potassium 4.6 mmol/L (3.4-5.0); Sodium 145 mmol/L (137-145); Total Protein 6.5 g/dL (6.3-8.2)
[2025-02-20 08:00] VITALS: BP 154/79; PULSE 85; RESP 18; TEMP 37.3; O2SAT 95
[2025-02-20] MEDS: SENNA/DOCUSATE SODIUM TABLET 1 TAB PO ×2 (08:32→17:33)
[2025-02-20] MEDS: VERAPAMIL HCL ER 120 MG TABLET PO ×2 (08:32→21:05)
[2025-02-20] MEDS: MUPIROCIN 2% OINT 22 GM TUBE 1 APPLIC EACH NARE ×2 (08:32→21:05)
[2025-02-20] MEDS: DOXYCYCLINE HYCLATE 100 MG TABLET PO ×2 (08:33→21:05)
[2025-02-20] MEDS: LOSARTAN POTASSIUM 50 MG TABLET 100 MG PO (08:33)
[2025-02-20] MEDS: TOPIRAMATE 100 MG TABLET PO (08:33)
--- NOTE | 2025-02-20 12:01 | P.PNIM_ITS ---
Progress Note: A&P Assessment and Plan (1) Acute respiratory failure with hypoxia: Code(s): J96.01 - Acute respiratory failure with hypoxia Status: Acute Assessment and Plan: Patient presented with hypoxia at oxygen saturation at 87% was placed on 2L NC with improvement. * V/Q Scan :Nondiagnostic (low or intermediate probability) for pulmonary embolism. * CT abdomen and pelvis: no acute findings were noted in the abdomen but consolidation and patchy groundglass opacities in the left lower lobe which could be due to pneumonia although the region of groundglass opacity also raises possibility of pulmonary infarcts were noted * D-dimer obtained and 29 * started on PO Eliquis for suspected pulmonary embolism * wean to maintain 92% * patient on room air and maintaining oxygen saturations currently * PT/OT, rehab (2) Contusion of lung: Qualifiers: Encounter type: initial encounter Laterality: left Qualified Code(s): S27.321A - Contusion of lung, unilateral, initial encounter Code(s): S27.329A - Contusion of lung, unspecified, initial encounter Status: Acute Assessment and Plan: Secondary to fall * Oxygen as needed * Incentive spirometer * repeat CXR 02/18 without acute findings (3) Compression fracture of T10 vertebra: Qualifiers: Encounter type: initial encounter Qualified Code(s): S22.070A - Wedge compression fracture of T9-T10 vertebra, initial encounter for closed fracture Code(s): S22.070A - Wedge compression fracture of T9-T10 vertebra, initial encounter for closed fracture Status: Acute Assessment and Plan: Trauma work-up with ne acute T10 fracture, ED had spoken with patient Ortho/spine physician follow-up outpatient as scheduled. * ANALISA griffin * pain management * PT/OT recommending swing/rehab (4) Spinal surgery in prior 3 months: Code(s): Z98.890 - Other specified postprocedural states Status: Acute Assessment and Plan: See Above (5) TIFFANI (acute kidney injury): Code(s): N17.9 - Acute kidney failure, unspecified Status: Acute Assessment and Plan: Cr at 2.45 POA baseline 1.4 (CM obtaining OSH records for recent labs from patients admission in January) * s/p IV fluid bolus on 02/15 * trend renal failure * avoid nephrotoxin medications * 500 cc bolus followed by iv fluids started on 02/16 * BUN 18, cr 1.14, improved to baseline * D/C IV fluids * AM labs * encourage PO fluids (6) Hypothyroidism (acquired): Code(s): E03.9 - Hypothyroidism, unspecified Status: Acute Assessment and Plan: * Continued Levothyroxine (7) Hypertension: Code(s): I10 - Essential (primary) hypertension Status: Acute Assessment and Plan: * continued Losartan * home HCTZ is on hold d/t TIFFANI * Monitor BP per unit protocol (8) UTI (urinary tract infection): Code(s): N39.0 - Urinary tract infection, site not specified Status: Acute Assessment and Plan: UA suspicious for UTI * IV ceftriaxone * urine culture with e. coli, sensitivities pending * completed treatment (9) Constipation: Code(s): K59.00 - Constipation, unspecified Status: Acute Assessment and Plan: s/p CT abdomen and pelvis due to nausea and vomiting patient reports two large bowel movements a few days ago continue bowel regimen adjust bowel regimen, encourage ambulation (10) Pulmonary embolism: Code(s): I26.99 - Other pulmonary embolism without acute cor pulmonale Status: Acute Assessment and Plan: VQ Scan: Nondiagnostic (low or intermediate probability) for pulmonary embolism. CT abdomen and pelvis: no acute findings were noted in the abdomen but consolidation and patchy groundglass opacities in the left lower lobe which could be due to pneumonia although the region of groundglass opacity also raises possibility of pulmonary infarcts were noted D-dimer obtained and 29 start Eliquis for suspected pulmonary embolism venous dopplers were ordered and positive for bilateral DVTs ECHO reviewed, G1DD wean oxygen as tolerated, patient is on room air today (11) Acute deep vein thrombosis (DVT) of both lower extremities: Code(s): I82.403 - Acute embolism and thrombosis of unspecified deep veins of lower extremity, bilateral Status: Acute Assessment and Plan: bilateral venous dopplers showed thrombus with diminished flow noted in the right peroneal vein, the left common femoral, the left femoral, the left popliteal, the left posterior tibial and the left peroneal veins patient was started on Eliquis 10 mg PO BID BLE without edema, pain monitor neurovascular status (12) Pneumonia of left lower lobe due to infectious organism: Code(s): J18.9 - Pneumonia, unspecified organism Status: Acute Assessment and Plan: continue IV ceftriaxone continue IV azithromycin MRSA swab positive start IV doxycycline collect sputum culture if able wean oxygen as tolerated repeat CXR 02/18 without acute findings continue PO cefdinir and PO doxycycline to complete treatment (13) Rhabdomyolysis: Qualifiers: Encounter type: initial encounter Rhabdomyolysis type: traumatic Qualified Code(s): T79.6XXA - Traumatic ischemia of muscle, initial encounter Code(s): M62.82 - Rhabdomyolysis Status: Acute Assessment and Plan: CK 193 on admission CK 158 02/16 CK 91 02/17, WNL IV fluids improved Subjective Date/time seen: 02/20/25 12:01 Interval history: Patient sitting in a chair, in no acute distress. Patient reports pain is controlled with current pain medication. Patient is participating in rehab. Patient still reports nausea. Patient is tolerating diet. Patient remains on room air, denies shortness of breath. Labs reviewed. Review of Systems Review of Systems: All systems reviewed & are unremarkable except as noted in HPI and below Neurologic: Reports Abnormal speech present (slow to respond reported baseline) Exam Const: General: comfortable and no acute distress Orientation/consciousness: oriented to person, oriented to place and oriented to time Other: Pleasant female HENMT: Mouth: Yes moist mucous membranes Eyes: General: appearance normal, both eyes and all related structures Sclera: sclerae normal Pupils: Equal, round and reactive pupils present Neck: Neck: supple and no JVD Resp: Effort & Inspection: normal respiratory effort Auscultation: clear to auscultation bilaterally Cardio: Rate: regular rate Rhythm: regular rhythm GI: Auscultation: normal bowel sounds Skin: General skin exam: normal color, no rashes or lesions noted and wounds noted Wounds: wounds noted Other: Spinal incision healed no erythema or drainage Neuro: General: oriented to person, oriented to place, oriented to time and Unable to assess gait Cranial nerves: Yes Equal, round and reactive pupils present Cognition (Neuro): normal cognition Speech: Abnormal speech present (slow to respond reported baseline) Gait exam (Neuro): Unable to assess gait Sensory Exam: normal sensation Extrem: General: normal to inspection Psych: Mental Status: mental status grossly normal Affect: normal affect Objective Data Vital Signs Vital Signs: Vital Signs - 24 hr 02/19/25 16:00 02/19/25 23:49 02/20/25 08:00 Temperature 98.4 F 97.8 F Pulse Rate 79 75 85 Respiratory Rate 18 18 18 Blood Pressure 141/76 H 161/70 H Pulse Oximetry 92 97 95 Oxygen Delivery Room Air Room Air Room Air 02/20/25 08:00 Temperature 99.2 F Pulse Rate 85 Respiratory Rate 18 Blood Pressure 154/79 H Pulse Oximetry 95 Oxygen Delivery Room Air Intake/Output Intake/Output: Intake & Output 02/17/25 02/18/25 02/19/25 02/20/25 23:59 23:59 23:59 23:59 Intake Total 3770 4840 3270 630 Output Total 1150 2700 2800 550 Balance 2620 2140 470 80 Meds/Results Medications: Active Medications Generic Name Dose Route Start Last Admin Trade Name Freq PRN Reason Stop Dose Admin Acetaminophen 650 mg 02/13/25 11:34 02/19/25 16:44 Acetaminophen 325 Mg Tablet PO 650 mg Q4H PRN Administration Mild Pain (1-3) or Fever Apixaban 10 mg 02/16/25 18:00 02/20/25 06:16 Apixaban 2.5 Mg Tablet PO 02/23/25 06:01 10 mg Q12H BONITA Administration Apixaban 5 mg 02/23/25 18:00 Apixaban 2.5 Mg Tablet PO Q12H BONITA Doxycycline Hyclate 100 mg 02/20/25 09:00 02/20/25 08:33 Doxycycline Hyclate 100 Mg Tablet PO 02/23/25 21:01 100 mg Q12HR BONITA Administration Gabapentin 100 mg 02/13/25 14:00 02/20/25 06:16 Gabapentin 100 Mg Capsule PO 100 mg Q8H BONITA Administration Hydrochlorothiazide 12.5 mg 02/14/25 09:00 02/20/25 08:32 Hydrochlorothiazide 12.5 Mg Capsule PO 12.5 mg QAM BONITA Administration Levothyroxine Sodium 112 mcg 02/14/25 06:30 02/20/25 06:17 Levothyroxine Sodium 112 Mcg Tablet PO 112 mcg DAILY@0630 BONITA Administration Losartan Potassium 100 mg 02/14/25 09:00 02/20/25 08:33 Losartan Potassium 50 Mg Tablet PO 100 mg QAM BONITA Administration Magnesium Hydroxide 30 ml 02/19/25 09:08 Magnesium Hydroxide Susp 30 Ml Udc PO QAM PRN Constipation Metoclopramide HCl 5 mg 02/20/25 07:50 Metoclopramide Hcl 5 Mg Tablet PO Q6H PRN Nausea And Vomiting Miscellaneous Information 1 each 02/20/25 00:01 Metocloperamide And Zofran Have Duplicate Prn Indications Of Nausea And Vomiting. Please S XX 03/22/25 00:00 CLARIFY BONITA Mupirocin 1 applic 02/17/25 09:00 02/20/25 08:32 Mupirocin 2% Oint 22 Gm Tube EACH NARE 02/21/25 21:01 1 applic Q12HR BONITA Administration Ondansetron HCl 4 mg 02/13/25 11:34 02/19/25 12:41 Ondansetron Inj 4 Mg/2 Ml Vial IV PUSH 4 mg Q6H PRN Administration Nausea And Vomiting Oxycodone HCl 5 mg 02/18/25 10:08 02/20/25 06:17 Oxycodone Hcl (*Crx) 5 Mg Tab Ir PO 5 mg Q6HR PRN Administration Pain Rated 4-6 Polyethylene Glycol 17 gm 02/14/25 09:00 02/20/25 08:31 Polyethylene Glycol 3350 17 Gm Powd.Pack PO 17 gm QAM BONITA Administration Promethazine HCl 12.5 mg 02/17/25 11:15 02/18/25 11:50 Promethazine Hcl 12.5 Mg Tablet PO 12.5 mg Q6H PRN Administration Nausea And Vomiting Senna/Docusate Sodium 1 tab 02/19/25 09:30 02/20/25 08:32 Senna/Docusate Sodium Tablet PO 1 tab BID BONITA Administration Sumatriptan Succinate 100 mg 02/13/25 11:33 Sumatriptan Succinate 25 Mg Tablet PO DAILY PRN Headache Topiramate 100 mg 02/14/25 09:00 02/20/25 08:33 Topiramate 100 Mg Tablet PO 100 mg DAILY BONITA Administration Verapamil HCl 120 mg 02/13/25 21:00 02/20/25 08:32 Verapamil Hcl Er 120 Mg Tablet PO 120 mg Q12HR BONITA Administration Radiology Results: ITS Impressions Cervical Spine CT 02/13/25 07:38 IMPRESSION: HEAD: 1. No acute intracranial findings. C-SPINE: 1. No acute fracture. 2. Degenerative and chronic findings as above. Head CT 02/13/25 07:38 IMPRESSION: HEAD: 1. No acute intracranial findings. C-SPINE: 1. No acute fracture. 2. Degenerative and chronic findings as above. Thoracic/Lumbar Spine CT 02/13/25 08:42 IMPRESSION: 1. Age-indeterminate compression fracture of T10, new from 05/08/2022. 2. Mild thoracic spondylosis and severe lumbar spondylosis. 3. Posterior fusion procedure from T10 to the sacrum and iliac bones. 4. Airspace and groundglass opacities in left lung lower lobe with volume loss, consistent with atelectasis versus pneumonia. Pulmonary Perfusion Imaging 02/14/25 10:56 IMPRESSION: 1. Nondiagnostic (low or intermediate probability) for pulmonary embolism. Abdomen/Pelvis CT 02/15/25 10:12 IMPRESSION: 1. No acute intra-abdominal/pelvic process. 2. Consolidation and patchy groundglass opacities in the left lower lobe which could be due to pneumonia although the region of groundglass opacity also raises possibility of pulmonary infarcts. Venous Doppler Study 02/16/25 14:47 Impression: Bilateral DVT detailed above Chest X-Ray 02/18/25 10:34 Impression: No acute cardiopulmonary abnormality. Labs Labs: Laboratory Results - last 24 hr 02/20/25 06:00 WBC 7.8 RBC 2.87 L Hgb 8.5 L Hct 28.1 L MCV 97.9 MCH 29.6 MCHC 30.2 L RDW 17.4 H Plt Count 304 MPV 8.4 L Immature Gran % (Auto) 3.2 H Neut % (Auto) 69.0 Lymph % (Auto) 14.6 L [place] % (Auto) 8.2 Eos % (Auto) 4.2 Baso % (Auto) 0.8 Lymph # (Auto) 1.14 [place] # (Auto) 0.64 Eos # (Auto) 0.33 Baso # (Auto) 0.06 Abs Immat Gran (auto) 0.25 H Absolute Neuts (auto) 5.38 Absolute Nucleated RBC 0.00 Nucleated RBC % 0.0 Sodium 145 Potassium 4.6 Chloride 115 H Carbon Dioxide 25 Anion Gap 5 BUN 17 Creatinine 1.09 H Estim Creat Clear Calc 39 Estimated GFR 49 L Glucose 110 Calculated Osmolality 302 H Calcium 8.9 Magnesium 1.9 Total Bilirubin 0.4 AST 30 ALT 15 Alkaline Phosphatase 94 Total Protein 6.5 Albumin 3.3 L Quality VTE Prophylaxis VTE prophylaxis: pharmacologic ordered
[2025-02-20] MEDS: PROMETHAZINE HCL 12.5 MG TABLET PO (13:02)
[2025-02-20 16:00] VITALS: BP 146/68; PULSE 87; RESP 18; TEMP 37.2; O2SAT 94
[2025-02-21] VITALS: BP 168/80; PULSE 81; RESP 18; TEMP 37.1; O2SAT 93
[2025-02-21] MEDS: GABAPENTIN 100 MG CAPSULE PO ×3 (05:26→21:21)
[2025-02-21] MEDS: oxyCODONE HCL (*CRX) 5 MG TAB IR PO ×2 (05:27→17:28)
[2025-02-21] MEDS: LEVOTHYROXINE SODIUM 112 MCG TABLET PO (05:27)
[2025-02-21] MEDS: APIXABAN 2.5 MG TABLET 10 MG PO ×2 (05:28→17:27)
[2025-02-21 06:08] LABS: Hematocrit 30.6 % (35.0-42.0); Hemoglobin 9.5 g/dL (11.7-13.8); Immature Granulocyte Percent A 2.2 % (0.0-0.0); Lymphocytes Absolute Auto 1.54 K/mm3 (1.10-4.50); Mean Corpuscular HGB Conc 31.0 g/dL (32-36); Mean Corpuscular Hemoglobin 29.9 pg (27.0-31.0); Mean Corpuscular Volume 96.2 fL (78.0-102.0); Nucleated Red Blood Cells Absolute Auto 0.00 K/mm3 (0.00-0.00); Nucleated Red Blood Cells Perc 0.0 % (0-0.0); Platelet Count Result 306 K/mm3 (150-420); Red Blood Count 3.18 M/mm3 (4.20-5.40); White Blood Count 9.7 K/mm3 (4.8-10.8)
[2025-02-21 06:18] LABS: Magnesium 1.8 mg/dL (1.6-2.3)
[2025-02-21 06:19] LABS: Alanine Aminotransferase 17 U/L (6-35); Albumin Level 3.7 g/dL (3.5-5.1); Alkaline Phosphatase 110 U/L (38-126); Anion Gap 7 mmol/L (4-12); Aspartate Amino Transferase 25 U/L (14-36); Bilirubin,Total 0.5 mg/dL (0.2-1.3); Blood Urea Nitrogen 17 mg/dL (7-17); Calcium 9.2 mg/dL (8.4-10.2); Carbon Dioxide 26 mmol/L (22-30); Chloride 110 mmol/L (98-107); Estimated CRCL calculation 36 ml/min; Estimated Glomerular Filt Rate 44; Glucose 106 mg/dL (65-110); Osmolality Calculated 297 mOsm/kg (285-295); Potassium 4.2 mmol/L (3.4-5.0); Sodium 143 mmol/L (137-145); Total Protein 7.2 g/dL (6.3-8.2)
[2025-02-21 08:00] VITALS: BP 157/73; PULSE 70; RESP 18; TEMP 36.4; O2SAT 96
[2025-02-21] MEDS: VERAPAMIL HCL ER 120 MG TABLET PO ×2 (08:26→20:12)
[2025-02-21] MEDS: LOSARTAN POTASSIUM 50 MG TABLET 100 MG PO (08:26)
[2025-02-21] MEDS: SENNA/DOCUSATE SODIUM TABLET 1 TAB PO ×2 (08:27→17:29)
[2025-02-21] MEDS: TOPIRAMATE 100 MG TABLET PO (08:27)
[2025-02-21] MEDS: MUPIROCIN 2% OINT 22 GM TUBE 1 APPLIC EACH NARE ×2 (08:28→20:12)
[2025-02-21] MEDS: DOXYCYCLINE HYCLATE 100 MG TABLET PO ×2 (08:28→20:12)
[2025-02-21] MEDS: ACETAMINOPHEN 325 MG TABLET 650 MG PO ×2 (08:35→20:12)
[2025-02-21] MEDS: PROMETHAZINE HCL 12.5 MG TABLET PO (12:07)
--- NOTE | 2025-02-21 12:34 | P.PNIM_ITS ---
Progress Note: A&P Assessment and Plan (1) Acute respiratory failure with hypoxia: Code(s): J96.01 - Acute respiratory failure with hypoxia Status: Acute Assessment and Plan: Patient presented with hypoxia at oxygen saturation at 87% was placed on 2L NC with improvement. * V/Q Scan :Nondiagnostic (low or intermediate probability) for pulmonary embolism. * CT abdomen and pelvis: no acute findings were noted in the abdomen but consolidation and patchy groundglass opacities in the left lower lobe which could be due to pneumonia although the region of groundglass opacity also raises possibility of pulmonary infarcts were noted * D-dimer obtained and 29 * started on PO Eliquis for suspected pulmonary embolism * wean to maintain 92% * patient on room air and maintaining oxygen saturations currently * PT/OT, patient needs swing bed for rehab, waiting for insurance auth (2) Contusion of lung: Qualifiers: Encounter type: initial encounter Laterality: left Qualified Code(s): S27.321A - Contusion of lung, unilateral, initial encounter Code(s): S27.329A - Contusion of lung, unspecified, initial encounter Status: Acute Assessment and Plan: Secondary to fall * Oxygen as needed * Incentive spirometer * repeat CXR 02/18 without acute findings (3) Compression fracture of T10 vertebra: Qualifiers: Encounter type: initial encounter Qualified Code(s): S22.070A - Wedge compression fracture of T9-T10 vertebra, initial encounter for closed fracture Code(s): S22.070A - Wedge compression fracture of T9-T10 vertebra, initial encounter for closed fracture Status: Acute Assessment and Plan: Trauma work-up with ne acute T10 fracture, ED had spoken with patient Ortho/spine physician follow-up outpatient as scheduled. * ANALISA brace * pain management * PT/OT recommending swing/rehab (4) Spinal surgery in prior 3 months: Code(s): Z98.890 - Other specified postprocedural states Status: Acute Assessment and Plan: See Above (5) TIFFANI (acute kidney injury): Code(s): N17.9 - Acute kidney failure, unspecified Status: Acute Assessment and Plan: Cr at 2.45 POA baseline 1.4 (CM obtaining OSH records for recent labs from [facility] in January) * s/p IV fluid bolus on 02/15 * trend renal failure * avoid nephrotoxin medications * 500 cc bolus followed by iv fluids started on 02/16 * BUN 18, cr 1.14, improved to baseline * D/C IV fluids * AM labs * encourage PO fluids (6) Hypothyroidism (acquired): Code(s): E03.9 - Hypothyroidism, unspecified Status: Acute Assessment and Plan: * Continued Levothyroxine (7) Hypertension: Code(s): I10 - Essential (primary) hypertension Status: Acute Assessment and Plan: * continued Losartan * home HCTZ is on hold d/t TIFFANI * Monitor BP per unit protocol (8) UTI (urinary tract infection): Code(s): N39.0 - Urinary tract infection, site not specified Status: Acute Assessment and Plan: UA suspicious for UTI * IV ceftriaxone * urine culture with e. coli, sensitivities pending * completed treatment (9) Constipation: Code(s): K59.00 - Constipation, unspecified Status: Acute Assessment and Plan: s/p CT abdomen and pelvis due to nausea and vomiting patient reports two large bowel movements a few days ago continue bowel regimen adjust bowel regimen, encourage ambulation check KUB to assess if further bowel regimen is needed, patient is still nauseated without vomiting (10) Pulmonary embolism: Code(s): I26.99 - Other pulmonary embolism without acute cor pulmonale Status: Acute Assessment and Plan: VQ Scan: Nondiagnostic (low or intermediate probability) for pulmonary embolism. CT abdomen and pelvis: no acute findings were noted in the abdomen but consolidation and patchy groundglass opacities in the left lower lobe which could be due to pneumonia although the region of groundglass opacity also raises possibility of pulmonary infarcts were noted D-dimer obtained and 29 start Eliquis for suspected pulmonary embolism venous dopplers were ordered and positive for bilateral DVTs ECHO reviewed, G1DD wean oxygen as tolerated, patient is on room air today (11) Acute deep vein thrombosis (DVT) of both lower extremities: Code(s): I82.403 - Acute embolism and thrombosis of unspecified deep veins of lower extremity, bilateral Status: Acute Assessment and Plan: bilateral venous dopplers showed thrombus with diminished flow noted in the right peroneal vein, the left common femoral, the left femoral, the left popliteal, the left posterior tibial and the left peroneal veins patient was started on Eliquis 10 mg PO BID BLE without pain, 1+ edema to LLE, trace edema to RLE monitor neurovascular status (12) Pneumonia of left lower lobe due to infectious organism: Code(s): J18.9 - Pneumonia, unspecified organism Status: Acute Assessment and Plan: continue IV ceftriaxone continue IV azithromycin MRSA swab positive start IV doxycycline collect sputum culture if able wean oxygen as tolerated repeat CXR 02/18 without acute findings continue PO doxycycline to complete treatment, PO cefdinir completed (13) Rhabdomyolysis: Qualifiers: Encounter type: initial encounter Rhabdomyolysis type: traumatic Qualified Code(s): T79.6XXA - Traumatic ischemia of muscle, initial encounter Code(s): M62.82 - Rhabdomyolysis Status: Acute Assessment and Plan: CK 193 on admission CK 158 02/16 CK 91 02/17, WNL IV fluids improved Subjective Date/time seen: 02/21/25 12:34 Interval history: Patient sitting in a chair, in no acute distress. Patient reports pain is controlled with current pain medication. Patient is participating in rehab. Patient still reports nausea. Patient is tolerating diet. Patient remains on room air, denies shortness of breath. Labs reviewed. check KUB to assess if further bowel regimen is needed. Review of Systems Review of Systems: All systems reviewed & are unremarkable except as noted in HPI and below Neurologic: Reports Abnormal speech present (slow to respond reported baseline) Exam Const: General: comfortable and no acute distress Orientation/consciousness: oriented to person, oriented to place and oriented to time Other: Pleasant female HENMT: Mouth: Yes moist mucous membranes Eyes: General: appearance normal, both eyes and all related structures Sclera: sclerae normal Pupils: Equal, round and reactive pupils present Neck: Neck: supple and no JVD Resp: Effort & Inspection: normal respiratory effort Auscultation: clear to auscultation bilaterally Cardio: Rate: regular rate Rhythm: regular rhythm GI: Auscultation: normal bowel sounds Skin: General skin exam: normal color, no rashes or lesions noted and wounds noted Wounds: wounds noted Other: Spinal incision healed no erythema or drainage Neuro: General: oriented to person, oriented to place, oriented to time and Unable to assess gait Cranial nerves: Yes Equal, round and reactive pupils present Cognition (Neuro): normal cognition Speech: Abnormal speech present (slow to respond reported baseline) Gait exam (Neuro): Unable to assess gait Sensory Exam: normal sensation Extrem: General: normal to inspection Psych: Mental Status: mental status grossly normal Affect: normal affect Objective Data Vital Signs Vital Signs: Vital Signs - 24 hr 02/20/25 16:00 02/21/25 00:00 02/21/25 08:00 Temperature 99.0 F 98.8 F Pulse Rate 87 81 70 Respiratory Rate 18 18 18 Blood Pressure 146/68 H 168/80 H Pulse Oximetry 94 93 96 Oxygen Delivery Room Air Room Air Room Air 02/21/25 08:00 Temperature 97.6 F Pulse Rate 70 Respiratory Rate 18 Blood Pressure 157/73 H Pulse Oximetry 96 Oxygen Delivery Room Air Intake/Output Intake/Output: Intake & Output 02/18/25 02/19/25 02/20/25 02/21/25 23:59 23:59 23:59 23:59 Intake Total 4840 3270 1710 1050 Output Total 2700 2800 550 Balance 2140 470 1160 1050 Meds/Results Medications: Active Medications Generic Name Dose Route Start Last Admin Trade Name Freq PRN Reason Stop Dose Admin Acetaminophen 650 mg 02/13/25 11:34 02/21/25 08:35 Acetaminophen 325 Mg Tablet PO 650 mg Q4H PRN Administration Mild Pain (1-3) or Fever Apixaban 10 mg 02/16/25 18:00 02/21/25 05:28 Apixaban 2.5 Mg Tablet PO 02/23/25 06:01 10 mg Q12H OBNITA Administration Apixaban 5 mg 02/23/25 18:00 Apixaban 2.5 Mg Tablet PO Q12H BONITA Doxycycline Hyclate 100 mg 02/20/25 09:00 02/21/25 08:28 Doxycycline Hyclate 100 Mg Tablet PO 02/23/25 21:01 100 mg Q12HR BONITA Administration Gabapentin 100 mg 02/13/25 14:00 02/21/25 05:26 Gabapentin 100 Mg Capsule PO 100 mg Q8H BONITA Administration Hydrochlorothiazide 12.5 mg 02/14/25 09:00 02/21/25 08:27 Hydrochlorothiazide 12.5 Mg Capsule PO 12.5 mg QAM BONITA Administration Levothyroxine Sodium 112 mcg 02/14/25 06:30 02/21/25 05:27 Levothyroxine Sodium 112 Mcg Tablet PO 112 mcg DAILY@0630 BONITA Administration Losartan Potassium 100 mg 02/14/25 09:00 02/21/25 08:26 Losartan Potassium 50 Mg Tablet PO 100 mg QAM BONITA Administration Magnesium Hydroxide 30 ml 02/19/25 09:08 Magnesium Hydroxide Susp 30 Ml Udc PO QAM PRN Constipation Metoclopramide HCl 5 mg 02/20/25 07:50 Metoclopramide Hcl 5 Mg Tablet PO Q6H PRN Nausea And Vomiting Miscellaneous Information 1 each 02/20/25 00:01 Metocloperamide And Zofran Have Duplicate Prn Indications Of Nausea And Vomiting. Please S XX 03/22/25 00:00 CLARIFY BONITA Mupirocin 1 applic 02/17/25 09:00 02/21/25 08:28 Mupirocin 2% Oint 22 Gm Tube EACH NARE 02/21/25 21:01 1 applic Q12HR BONITA Administration Ondansetron HCl 4 mg 02/13/25 11:34 02/19/25 12:41 Ondansetron Inj 4 Mg/2 Ml Vial IV PUSH 4 mg Q6H PRN Administration Nausea And Vomiting Oxycodone HCl 5 mg 02/18/25 10:08 02/21/25 05:27 Oxycodone Hcl (*Crx) 5 Mg Tab Ir PO 5 mg Q6HR PRN Administration Pain Rated 4-6 Polyethylene Glycol 17 gm 02/14/25 09:00 02/21/25 08:26 Polyethylene Glycol 3350 17 Gm Powd.Pack PO 17 gm QAM BONITA Administration Promethazine HCl 12.5 mg 02/17/25 11:15 02/21/25 12:07 Promethazine Hcl 12.5 Mg Tablet PO 12.5 mg Q6H PRN Administration Nausea And Vomiting Senna/Docusate Sodium 1 tab 02/19/25 09:30 02/21/25 08:27 Senna/Docusate Sodium Tablet PO 1 tab BID BONITA Administration Sumatriptan Succinate 100 mg 02/13/25 11:33 Sumatriptan Succinate 25 Mg Tablet PO DAILY PRN Headache Topiramate 100 mg 02/14/25 09:00 02/21/25 08:27 Topiramate 100 Mg Tablet PO 100 mg DAILY BONITA Administration Verapamil HCl 120 mg 02/13/25 21:00 02/21/25 08:26 Verapamil Hcl Er 120 Mg Tablet PO 120 mg Q12HR BONITA Administration Radiology Results: ITS Impressions Cervical Spine CT 02/13/25 07:38 IMPRESSION: HEAD: 1. No acute intracranial findings. C-SPINE: 1. No acute fracture. 2. Degenerative and chronic findings as above. Head CT 02/13/25 07:38 IMPRESSION: HEAD: 1. No acute intracranial findings. C-SPINE: 1. No acute fracture. 2. Degenerative and chronic findings as above. Thoracic/Lumbar Spine CT 02/13/25 08:42 IMPRESSION: 1. Age-indeterminate compression fracture of T10, new from 05/08/2022. 2. Mild thoracic spondylosis and severe lumbar spondylosis. 3. Posterior fusion procedure from T10 to the sacrum and iliac bones. 4. Airspace and groundglass opacities in left lung lower lobe with volume loss, consistent with atelectasis versus pneumonia. Pulmonary Perfusion Imaging 02/14/25 10:56 IMPRESSION: 1. Nondiagnostic (low or intermediate probability) for pulmonary embolism. Abdomen/Pelvis CT 02/15/25 10:12 IMPRESSION: 1. No acute intra-abdominal/pelvic process. 2. Consolidation and patchy groundglass opacities in the left lower lobe which could be due to pneumonia although the region of groundglass opacity also raises possibility of pulmonary infarcts. Venous Doppler Study 02/16/25 14:47 Impression: Bilateral DVT detailed above Chest X-Ray 02/18/25 10:34 Impression: No acute cardiopulmonary abnormality. Labs Labs: Laboratory Results - last 24 hr 02/21/25 05:48 WBC 9.7 RBC 3.18 L Hgb 9.5 L Hct 30.6 L MCV 96.2 MCH 29.9 MCHC 31.0 L RDW 17.3 H Plt Count 306 MPV 8.3 L Immature Gran % (Auto) 2.2 H Neut % (Auto) 71.0 H Lymph % (Auto) 15.9 L Island % (Auto) 8.1 Eos % (Auto) 2.2 Baso % (Auto) 0.6 Lymph # (Auto) 1.54 [place] # (Auto) 0.79 Eos # (Auto) 0.21 Baso # (Auto) 0.06 Abs Immat Gran (auto) 0.21 H Absolute Neuts (auto) 6.90 Absolute Nucleated RBC 0.00 Nucleated RBC % 0.0 Sodium 143 Potassium 4.2 Chloride 110 H Carbon Dioxide 26 Anion Gap 7 BUN 17 Creatinine 1.20 H Estim Creat Clear Calc 36 Estimated GFR 44 L Glucose 106 Calculated Osmolality 297 H Calcium 9.2 Magnesium 1.8 Total Bilirubin 0.5 AST 25 ALT 17 Alkaline Phosphatase 110 Total Protein 7.2 Albumin 3.7 Quality VTE Prophylaxis VTE prophylaxis: pharmacologic ordered
[2025-02-21] MEDS: METOCLOPRAMIDE HCL 5 MG TABLET PO (13:19)
[2025-02-21 16:00] VITALS: BP 149/78; PULSE 72; RESP 18; TEMP 36.6; O2SAT 96
--- NOTE | 2025-02-21 18:34 | PC.NURSE ---
Dressing changed on surgical incicion on patient's lower back. Cleansed with wound cleanser, ABD and pourous tape applied. Patient tolerated well. No s/s infection at this time.
[2025-02-21 20:00] VITALS: PULSE 72; RESP 18; O2SAT 96
[2025-02-21] MEDS: PROMETHAZINE HCL 25 MG TABLET PO (20:12)
[2025-02-22] VITALS: BP 139/70; PULSE 70; RESP 17; TEMP 36.9; O2SAT 94
[2025-02-22 05:43] LABS: Hematocrit 27.7 % (35.0-42.0); Hemoglobin 8.6 g/dL (11.7-13.8); Immature Granulocyte Percent A 1.7 % (0.0-0.0); Lymphocytes Absolute Auto 1.36 K/mm3 (1.10-4.50); Mean Corpuscular HGB Conc 31.0 g/dL (32-36); Mean Corpuscular Hemoglobin 29.7 pg (27.0-31.0); Mean Corpuscular Volume 95.5 fL (78.0-102.0); Nucleated Red Blood Cells Absolute Auto 0.00 K/mm3 (0.00-0.00); Nucleated Red Blood Cells Perc 0.0 % (0-0.0); Platelet Count Result 248 K/mm3 (150-420); Red Blood Count 2.90 M/mm3 (4.20-5.40); White Blood Count 8.4 K/mm3 (4.8-10.8)
[2025-02-22] MEDS: GABAPENTIN 100 MG CAPSULE PO ×3 (05:54→21:05)
[2025-02-22] MEDS: APIXABAN 2.5 MG TABLET 10 MG PO ×2 (05:54→17:20)
[2025-02-22] MEDS: LEVOTHYROXINE SODIUM 112 MCG TABLET PO (05:54)
[2025-02-22 05:55] LABS: Alanine Aminotransferase 15 U/L (6-35); Albumin Level 3.3 g/dL (3.5-5.1); Alkaline Phosphatase 103 U/L (38-126); Anion Gap 6 mmol/L (4-12); Aspartate Amino Transferase 22 U/L (14-36); Bilirubin,Total 0.4 mg/dL (0.2-1.3); Blood Urea Nitrogen 22 mg/dL (7-17); Calcium 8.9 mg/dL (8.4-10.2); Carbon Dioxide 27 mmol/L (22-30); Chloride 109 mmol/L (98-107); Estimated CRCL calculation 35 ml/min; Estimated Glomerular Filt Rate 43; Glucose 109 mg/dL (65-110); Osmolality Calculated 298 mOsm/kg (285-295); Potassium 4.1 mmol/L (3.4-5.0); Sodium 142 mmol/L (137-145); Total Protein 6.3 g/dL (6.3-8.2)
[2025-02-22] MEDS: oxyCODONE HCL (*CRX) 5 MG TAB IR PO ×3 (05:59→20:23)
[2025-02-22 08:00] VITALS: BP 169/91; PULSE 97; RESP 18; TEMP 37.1; O2SAT 95
[2025-02-22] MEDS: ACETAMINOPHEN 325 MG TABLET 650 MG PO ×2 (08:39→16:14)
[2025-02-22] MEDS: VERAPAMIL HCL ER 120 MG TABLET PO ×2 (08:39→20:22)
[2025-02-22] MEDS: TOPIRAMATE 100 MG TABLET PO (08:39)
[2025-02-22] MEDS: LOSARTAN POTASSIUM 50 MG TABLET 100 MG PO (08:39)
[2025-02-22] MEDS: METOCLOPRAMIDE HCL 5 MG TABLET PO ×2 (08:40→20:22)
[2025-02-22] MEDS: DOXYCYCLINE HYCLATE 100 MG TABLET PO ×2 (08:40→20:22)
[2025-02-22] MEDS: SENNA/DOCUSATE SODIUM TABLET 2 TAB PO ×2 (09:48→17:19)
[2025-02-22] MEDS: LACTULOSE 20 GM/30 ML UDC PO ×2 (09:49→12:17)
--- NOTE | 2025-02-22 15:56 | P.PNIM_ITS ---
Progress Note: A&P Assessment and Plan (1) Acute respiratory failure with hypoxia: Code(s): J96.01 - Acute respiratory failure with hypoxia Status: Acute Assessment and Plan: Patient presented with hypoxia at oxygen saturation at 87% was placed on 2L NC with improvement. * V/Q Scan :Nondiagnostic (low or intermediate probability) for pulmonary embolism. * CT abdomen and pelvis: no acute findings were noted in the abdomen but consolidation and patchy groundglass opacities in the left lower lobe which could be due to pneumonia although the region of groundglass opacity also raises possibility of pulmonary infarcts were noted * D-dimer obtained and 29 * started on PO Eliquis for suspected pulmonary embolism * wean to maintain 92% * patient on room air and maintaining oxygen saturations currently * PT/OT, patient needs swing bed for rehab, waiting for insurance auth (2) Contusion of lung: Qualifiers: Encounter type: initial encounter Laterality: left Qualified Code(s): S27.321A - Contusion of lung, unilateral, initial encounter Code(s): S27.329A - Contusion of lung, unspecified, initial encounter Status: Acute Assessment and Plan: Secondary to fall * Oxygen as needed * Incentive spirometer * repeat CXR 02/18 without acute findings (3) Compression fracture of T10 vertebra: Qualifiers: Encounter type: initial encounter Qualified Code(s): S22.070A - Wedge compression fracture of T9-T10 vertebra, initial encounter for closed fracture Code(s): S22.070A - Wedge compression fracture of T9-T10 vertebra, initial encounter for closed fracture Status: Acute Assessment and Plan: Trauma work-up with ne acute T10 fracture, ED had spoken with patient Ortho/spine physician follow-up outpatient as scheduled. * ANALISA brace * pain management * PT/OT recommending swing/rehab (4) Spinal surgery in prior 3 months: Code(s): Z98.890 - Other specified postprocedural states Status: Acute Assessment and Plan: See Above (5) TIFFANI (acute kidney injury): Code(s): N17.9 - Acute kidney failure, unspecified Status: Acute Assessment and Plan: Cr at 2.45 POA baseline 1.4 (CM obtaining OSH records for recent labs from in [place] admission in January) * s/p IV fluid bolus on 02/15 * trend renal failure * avoid nephrotoxin medications * 500 cc bolus followed by iv fluids started on 02/16 * BUN 18, cr 1.14, improved to baseline * D/C IV fluids * AM labs * encourage PO fluids (6) Hypothyroidism (acquired): Code(s): E03.9 - Hypothyroidism, unspecified Status: Acute Assessment and Plan: * Continued Levothyroxine (7) Hypertension: Code(s): I10 - Essential (primary) hypertension Status: Acute Assessment and Plan: * continued Losartan * home HCTZ is on hold d/t TIFFANI * blood pressure has been elevated * add amlodipine 5 mg daily * Monitor BP per unit protocol (8) UTI (urinary tract infection): Code(s): N39.0 - Urinary tract infection, site not specified Status: Acute Assessment and Plan: UA suspicious for UTI * IV ceftriaxone * urine culture with e. coli, sensitivities pending * completed treatment (9) Constipation: Code(s): K59.00 - Constipation, unspecified Status: Acute Assessment and Plan: s/p CT abdomen and pelvis due to nausea and vomiting patient reports two large bowel movements a few days ago continue bowel regimen adjust bowel regimen, encourage ambulation s/p KUB 02/21 with constipation Lactulose 20 grams x 3 doses ordered (10) Pulmonary embolism: Code(s): I26.99 - Other pulmonary embolism without acute cor pulmonale Status: Acute Assessment and Plan: VQ Scan: Nondiagnostic (low or intermediate probability) for pulmonary embolism. CT abdomen and pelvis: no acute findings were noted in the abdomen but consolidation and patchy groundglass opacities in the left lower lobe which could be due to pneumonia although the region of groundglass opacity also raises possibility of pulmonary infarcts were noted D-dimer obtained and 29 start Eliquis for suspected pulmonary embolism venous dopplers were ordered and positive for bilateral DVTs ECHO reviewed, G1DD wean oxygen as tolerated, patient is on room air today (11) Acute deep vein thrombosis (DVT) of both lower extremities: Code(s): I82.403 - Acute embolism and thrombosis of unspecified deep veins of lower extremity, bilateral Status: Acute Assessment and Plan: bilateral venous dopplers showed thrombus with diminished flow noted in the right peroneal vein, the left common femoral, the left femoral, the left popliteal, the left posterior tibial and the left peroneal veins patient was started on Eliquis 10 mg PO BID BLE without pain, 1+ edema to LLE, trace edema to RLE monitor neurovascular status (12) Pneumonia of left lower lobe due to infectious organism: Code(s): J18.9 - Pneumonia, unspecified organism Status: Acute Assessment and Plan: continue IV ceftriaxone continue IV azithromycin MRSA swab positive start IV doxycycline collect sputum culture if able wean oxygen as tolerated repeat CXR 02/18 without acute findings continue PO doxycycline to complete treatment, PO cefdinir completed (13) Rhabdomyolysis: Qualifiers: Encounter type: initial encounter Rhabdomyolysis type: traumatic Qualified Code(s): T79.6XXA - Traumatic ischemia of muscle, initial encounter Code(s): M62.82 - Rhabdomyolysis Status: Acute Assessment and Plan: CK 193 on admission CK 158 02/16 CK 91 02/17, WNL IV fluids improved Subjective Date/time seen: 02/22/25 15:56 Interval history: Patient seen for a follow up visit. Patient lying in bed, in no acute distress. Patient s/p KUB which showed constipation. Bowel regimen adjusted. Lactulose 20 grams PO x 3 doses ordered. Patient encouraged to ambulate and increase PO fluids. Patient's blood pressure has been elevated. Add amlodipine 5 mg PO daily, adjust as indicated for goal SBP < 130. Patient needs swing bed for continued therapy, awaiting insurance authorization. Review of Systems Review of Systems: All systems reviewed & are unremarkable except as noted in HPI and below Neurologic: Reports Abnormal speech present (slow to respond reported baseline) Exam Const: General: comfortable and no acute distress Orientation/consciousness: oriented to person, oriented to place and oriented to time Other: Pleasant female HENMT: Mouth: Yes moist mucous membranes Eyes: General: appearance normal, both eyes and all related structures Sclera: sclerae normal Pupils: Equal, round and reactive pupils present Neck: Neck: supple and no JVD Resp: Effort & Inspection: normal respiratory effort Auscultation: clear to auscultation bilaterally Cardio: Rate: regular rate Rhythm: regular rhythm GI: Auscultation: normal bowel sounds Skin: General skin exam: normal color, no rashes or lesions noted and wounds noted Wounds: wounds noted Other: Spinal incision healed no erythema or drainage Neuro: General: oriented to person, oriented to place, oriented to time and Unable to assess gait Cranial nerves: Yes Equal, round and reactive pupils present Cognition (Neuro): normal cognition Speech: Abnormal speech present (slow to respond reported baseline) Gait exam (Neuro): Unable to assess gait Sensory Exam: normal sensation Extrem: General: normal to inspection Psych: Mental Status: mental status grossly normal Affect: normal affect Objective Data Vital Signs Vital Signs: Vital Signs - 24 hr 02/21/25 16:00 02/21/25 20:00 02/22/25 00:00 Temperature 97.9 F 98.4 F Pulse Rate 72 72 70 Respiratory Rate 18 18 17 Blood Pressure 149/78 H 139/70 Pulse Oximetry 96 96 94 Oxygen Delivery Room Air Room Air Room Air 02/22/25 08:00 02/22/25 08:00 Temperature 98.8 F Pulse Rate 97 97 Respiratory Rate 18 18 Blood Pressure 169/91 H Pulse Oximetry 95 95 Oxygen Delivery Room Air Room Air Intake/Output Intake/Output: Intake & Output 02/19/25 02/20/25 02/21/25 02/22/25 23:59 23:59 23:59 23:59 Intake Total 3270 1710 2045 910 Output Total 2800 550 Balance 470 1160 2045 910 Meds/Results Medications: Active Medications Generic Name Dose Route Start Last Admin Trade Name Freq PRN Reason Stop Dose Admin Acetaminophen 650 mg 02/13/25 11:34 02/22/25 08:39 Acetaminophen 325 Mg Tablet PO 650 mg Q4H PRN Administration Mild Pain (1-3) or Fever Amlodipine Besylate 5 mg 02/23/25 09:00 Amlodipine Besylate 5 Mg Tablet PO DAILY [facility] Apixaban 10 mg 02/16/25 18:00 02/22/25 05:54 Apixaban 2.5 Mg Tablet PO 02/23/25 06:01 10 mg Q12H BONITA Administration Apixaban 5 mg 02/23/25 18:00 Apixaban 2.5 Mg Tablet PO Q12H BONITA Doxycycline Hyclate 100 mg 02/20/25 09:00 02/22/25 08:40 Doxycycline Hyclate 100 Mg Tablet PO 02/23/25 21:01 100 mg Q12HR BONITA Administration Gabapentin 100 mg 02/13/25 14:00 02/22/25 13:40 Gabapentin 100 Mg Capsule PO 100 mg Q8H BONITA Administration Hydrochlorothiazide 12.5 mg 02/14/25 09:00 02/22/25 08:38 Hydrochlorothiazide 12.5 Mg Capsule PO 12.5 mg QAM BONITA Administration Lactulose 20 gm 02/22/25 09:00 02/22/25 12:17 Lactulose 20 Gm/30 Ml Udc PO 02/22/25 17:01 20 gm TID BONITA Administration Levothyroxine Sodium 112 mcg 02/14/25 06:30 02/22/25 05:54 Levothyroxine Sodium 112 Mcg Tablet PO 112 mcg DAILY@0630 BONITA Administration Losartan Potassium 100 mg 02/14/25 09:00 02/22/25 08:39 Losartan Potassium 50 Mg Tablet PO 100 mg QAM BONITA Administration Magnesium Hydroxide 30 ml 02/19/25 09:08 Magnesium Hydroxide Susp 30 Ml Udc PO QAM PRN Constipation Metoclopramide HCl 5 mg 02/20/25 07:50 02/22/25 08:40 Metoclopramide Hcl 5 Mg Tablet PO 5 mg Q6H PRN Administration Nausea And Vomiting Miscellaneous Information 1 each 02/20/25 00:01 Metocloperamide And Zofran Have Duplicate Prn Indications Of Nausea And Vomiting. Please S XX 03/22/25 00:00 CLARIFY BONITA Oxycodone HCl 5 mg 02/18/25 10:08 02/22/25 12:17 Oxycodone Hcl (*Crx) 5 Mg Tab Ir PO 5 mg Q6HR PRN Administration Pain Rated 4-6 Polyethylene Glycol 17 gm 02/22/25 09:00 02/22/25 09:48 Polyethylene Glycol 3350 17 Gm Powd.Pack PO 17 gm Q12H BONITA Administration Promethazine HCl 25 mg 02/21/25 17:21 02/21/25 20:12 Promethazine Hcl 25 Mg Tablet PO 25 mg Q6H PRN Administration Nausea And Vomiting Senna/Docusate Sodium 2 tab 02/22/25 09:00 02/22/25 09:48 Senna/Docusate Sodium Tablet PO 2 tab BID BONITA Administration Sumatriptan Succinate 100 mg 02/13/25 11:33 Sumatriptan Succinate 25 Mg Tablet PO DAILY PRN Headache Topiramate 100 mg 02/14/25 09:00 02/22/25 08:39 Topiramate 100 Mg Tablet PO 100 mg DAILY BONITA Administration Verapamil HCl 120 mg 02/13/25 21:00 02/22/25 08:39 Verapamil Hcl Er 120 Mg Tablet PO 120 mg Q12HR BONITA Administration Radiology Results: ITS Impressions Cervical Spine CT 02/13/25 07:38 IMPRESSION: HEAD: 1. No acute intracranial findings. C-SPINE: 1. No acute fracture. 2. Degenerative and chronic findings as above. Head CT 02/13/25 07:38 IMPRESSION: HEAD: 1. No acute intracranial findings. C-SPINE: 1. No acute fracture. 2. Degenerative and chronic findings as above. Thoracic/Lumbar Spine CT 02/13/25 08:42 IMPRESSION: 1. Age-indeterminate compression fracture of T10, new from 05/08/2022. 2. Mild thoracic spondylosis and severe lumbar spondylosis. 3. Posterior fusion procedure from T10 to the sacrum and iliac bones. 4. Airspace and groundglass opacities in left lung lower lobe with volume loss, consistent with atelectasis versus pneumonia. Pulmonary Perfusion Imaging 02/14/25 10:56 IMPRESSION: 1. Nondiagnostic (low or intermediate probability) for pulmonary embolism. Abdomen/Pelvis CT 02/15/25 10:12 IMPRESSION: 1. No acute intra-abdominal/pelvic process. 2. Consolidation and patchy groundglass opacities in the left lower lobe which could be due to pneumonia although the region of groundglass opacity also raises possibility of pulmonary infarcts. Venous Doppler Study 02/16/25 14:47 Impression: Bilateral DVT detailed above Chest X-Ray 02/18/25 10:34 Impression: No acute cardiopulmonary abnormality. Abdomen X-Ray 02/21/25 17:33 IMPRESSION: Constipation. Labs Labs: Laboratory Results - last 24 hr 02/22/25 05:31 WBC 8.4 RBC 2.90 L Hgb 8.6 L Hct 27.7 L MCV 95.5 MCH 29.7 MCHC 31.0 L RDW 17.3 H Plt Count 248 MPV 7.9 L Immature Gran % (Auto) 1.7 H Neut % (Auto) 69.9 Lymph % (Auto) 16.2 L Mcmullen % (Auto) 8.9 Eos % (Auto) 2.7 Baso % (Auto) 0.6 Lymph # (Auto) 1.36 Mcmullen # (Auto) 0.75 Eos # (Auto) 0.23 Baso # (Auto) 0.05 Abs Immat Gran (auto) 0.14 H Absolute Neuts (auto) 5.88 Absolute Nucleated RBC 0.00 Nucleated RBC % 0.0 Sodium 142 Potassium 4.1 Chloride 109 H Carbon Dioxide 27 Anion Gap 6 BUN 22 H Creatinine 1.22 H Estim Creat Clear Calc 35 Estimated GFR 43 L Glucose 109 Calculated Osmolality 298 H Calcium 8.9 Total Bilirubin 0.4 AST 22 ALT 15 Alkaline Phosphatase 103 Total Protein 6.3 Albumin 3.3 L Quality VTE Prophylaxis VTE prophylaxis: pharmacologic ordered
[2025-02-22 16:00] VITALS: BP 159/80; PULSE 72; RESP 18; TEMP 36.7; O2SAT 90
[2025-02-22] MEDS: PROMETHAZINE HCL 25 MG TABLET PO (17:27)
--- NOTE | 2025-02-22 17:57 | PC.NURSE ---
Patient suddenly became nauseous during dinner and vomited approximately 200ml dark brown liquid. Patient had just taken her medication.
[2025-02-22 20:00] VITALS: PULSE 72; RESP 18; O2SAT 90
[2025-02-23] VITALS: BP 143/75; PULSE 72; RESP 17; TEMP 36.9; O2SAT 96
[2025-02-23] MEDS: APIXABAN 2.5 MG TABLET 10 MG PO (05:46)
[2025-02-23] MEDS: oxyCODONE HCL (*CRX) 5 MG TAB IR PO ×3 (05:47→21:39)
[2025-02-23] MEDS: METOCLOPRAMIDE HCL 5 MG TABLET PO ×2 (05:47→12:10)
[2025-02-23] MEDS: GABAPENTIN 100 MG CAPSULE PO ×3 (05:47→21:40)
[2025-02-23] MEDS: LEVOTHYROXINE SODIUM 112 MCG TABLET PO (05:47)
[2025-02-23 07:37] LABS: Hematocrit 29.9 % (35.0-42.0); Hemoglobin 9.3 g/dL (11.7-13.8); Immature Granulocyte Percent A 1.5 % (0.0-0.0); Lymphocytes Absolute Auto 1.45 K/mm3 (1.10-4.50); Mean Corpuscular HGB Conc 31.1 g/dL (32-36); Mean Corpuscular Hemoglobin 29.6 pg (27.0-31.0); Mean Corpuscular Volume 95.2 fL (78.0-102.0); Nucleated Red Blood Cells Absolute Auto 0.00 K/mm3 (0.00-0.00); Nucleated Red Blood Cells Perc 0.0 % (0-0.0); Platelet Count Result 236 K/mm3 (150-420); Red Blood Count 3.14 M/mm3 (4.20-5.40); White Blood Count 8.1 K/mm3 (4.8-10.8)
[2025-02-23 07:57] LABS: Anion Gap 5 mmol/L (4-12); Blood Urea Nitrogen 23 mg/dL (7-17); Calcium 8.7 mg/dL (8.4-10.2); Carbon Dioxide 28 mmol/L (22-30); Chloride 108 mmol/L (98-107); Estimated CRCL calculation 33 ml/min; Estimated Glomerular Filt Rate 40; Glucose 103 mg/dL (65-110); Magnesium 2.0 mg/dL (1.6-2.3); Osmolality Calculated 295 mOsm/kg (285-295); Potassium 4.2 mmol/L (3.4-5.0); Sodium 141 mmol/L (137-145)
[2025-02-23 08:00] VITALS: BP 162/83; PULSE 84; RESP 18; TEMP 37.2; O2SAT 96
[2025-02-23] MEDS: DOXYCYCLINE HYCLATE 100 MG TABLET PO ×2 (08:42→21:40)
[2025-02-23] MEDS: SENNA/DOCUSATE SODIUM TABLET 2 TAB PO ×2 (08:42→17:59)
[2025-02-23] MEDS: VERAPAMIL HCL ER 120 MG TABLET PO ×2 (08:42→21:40)
[2025-02-23] MEDS: TOPIRAMATE 100 MG TABLET PO (08:43)
[2025-02-23] MEDS: LOSARTAN POTASSIUM 50 MG TABLET 100 MG PO (08:43)
--- NOTE | 2025-02-23 09:00 | P.PNIM_ITS ---
Progress Note: A&P Assessment and Plan (1) Acute respiratory failure with hypoxia: Code(s): J96.01 - Acute respiratory failure with hypoxia Status: Acute Assessment and Plan: Patient presented with hypoxia at oxygen saturation at 87% was placed on 2L NC with improvement. * V/Q Scan :Nondiagnostic (low or intermediate probability) for pulmonary embolism. * CT abdomen and pelvis: no acute findings were noted in the abdomen but consolidation and patchy groundglass opacities in the left lower lobe which could be due to pneumonia although the region of groundglass opacity also raises possibility of pulmonary infarcts were noted * D-dimer obtained and 29 * 02/16 - Eliquis 10 mg until 02/22 * 02/23 - Eliquis 5 mg started per protocol * wean to maintain 92% * patient on room air and maintaining oxygen saturations currently * PT/OT, patient needs swing bed for rehab, waiting for insurance auth (2) Pulmonary embolism: Code(s): I26.99 - Other pulmonary embolism without acute cor pulmonale Status: Acute Assessment and Plan: VQ Scan: Nondiagnostic (low or intermediate probability) for pulmonary embolism. CT abdomen and pelvis: no acute findings were noted in the abdomen but consolidation and patchy groundglass opacities in the left lower lobe which could be due to pneumonia although the region of groundglass opacity also raises possibility of pulmonary infarcts were noted D-dimer obtained and 29 start Eliquis for suspected pulmonary embolism venous dopplers were ordered and positive for bilateral DVTs ECHO reviewed, G1DD wean oxygen as tolerated, patient is on room air today (3) Compression fracture of T10 vertebra: Qualifiers: Encounter type: initial encounter Qualified Code(s): S22.070A - Wedge compression fracture of T9-T10 vertebra, initial encounter for closed fracture Code(s): S22.070A - Wedge compression fracture of T9-T10 vertebra, initial encounter for closed fracture Status: Acute Assessment and Plan: Trauma work-up with ne acute T10 fracture, ED had spoken with patient Ortho/spine physician follow-up outpatient as scheduled. * ANALISA brace while OOB * pain management * PT/OT recommending swing/rehab (4) Acute deep vein thrombosis (DVT) of both lower extremities: Code(s): I82.403 - Acute embolism and thrombosis of unspecified deep veins of lower extremity, bilateral Status: Acute Assessment and Plan: bilateral venous dopplers showed thrombus with diminished flow noted in the right peroneal vein, the left common femoral, the left femoral, the left popliteal, the left posterior tibial and the left peroneal veins patient was started on Eliquis 10 mg PO BID BLE without pain, 1+ edema to LLE, trace edema to RLE monitor neurovascular status (5) TIFFANI (acute kidney injury): Code(s): N17.9 - Acute kidney failure, unspecified Status: Acute Assessment and Plan: Cr at 2.45 POA baseline 1.4 (CM obtaining OSH records for recent labs from patients admission in January) * Cr 1.1->1.2->1.22->1.30 today * trend renal failure * avoid nephrotoxin medications * 02/23 - NS 75 ml/hr due to rising Cr, patient encouraged to increase her PO fluid intake * AM labs * Monitor I&O (6) Pneumonia of left lower lobe due to infectious organism: Code(s): J18.9 - Pneumonia, unspecified organism Status: Resolved Assessment and Plan: 02/23 - pCXR without acute abnomalitis, PNA resolved. Remains on RA MRSA swab positive collect sputum culture if able Antibiotic History: * Ceftriaxone IV 02/13 - 02/19 * Doxycycline IV 02/17 - 02/20 * Azithromycin 02/16 - 02/17 * Doxycycline PO 02/20 - 02/23 (7) Nausea: Code(s): R11.0 - Nausea Status: Acute Assessment and Plan: 02/23 - Famotidine 20 mg BID PO started (8) Hypertension: Code(s): I10 - Essential (primary) hypertension Status: Acute Assessment and Plan: * continued Losartan 100 mg * HCTZ 12.5 mg was resumed 02/14: monitor for TIFFANI * blood pressure has been elevated * 02/23 - amlodipine 5 mg daily * Monitor BP per unit protocol (9) Constipation: Code(s): K59.00 - Constipation, unspecified Status: Acute Assessment and Plan: s/p CT abdomen and pelvis due to nausea and vomiting 02/21 - KUB indicated constipation Patient has had multiple BMs Continue Miralax daily and Senna/Docusate BID (10) UTI (urinary tract infection): Code(s): N39.0 - Urinary tract infection, site not specified Status: Resolved Assessment and Plan: UA suspicious for UTI * IV ceftriaxone 02/13 - 02/19 * urine culture with e. coli, which was sensitive to Ceftriaxone * completed treatment (11) Hypothyroidism (acquired): Code(s): E03.9 - Hypothyroidism, unspecified Status: Acute Assessment and Plan: * Continued Levothyroxine (12) Contusion of lung: Qualifiers: Encounter type: initial encounter Laterality: left Qualified Code(s): S27.321A - Contusion of lung, unilateral, initial encounter Code(s): S27.329A - Contusion of lung, unspecified, initial encounter Status: Acute Assessment and Plan: Secondary to fall * Oxygen as needed * Incentive spirometer * repeat CXR 02/18 without acute findings (13) Spinal surgery in prior 3 months: Code(s): Z98.890 - Other specified postprocedural states Status: Acute Assessment and Plan: See Above (14) Rhabdomyolysis: Qualifiers: Encounter type: initial encounter Rhabdomyolysis type: traumatic Qualified Code(s): T79.6XXA - Traumatic ischemia of muscle, initial encounter Code(s): M62.82 - Rhabdomyolysis Status: Resolved Assessment and Plan: Resolved Time Spent With Patient Time with patient: 15 - 25 minutes Subjective Date/time seen: 02/23/25 09:00 Interval history: Patient laying flat in bed, she repots back and leg pain but otherwise no new complaints. She feels that her PT has been going well and hopes that her insurance auth will be approved for SWB. Patient does state she lives with a spouse but he does have to work during the day, she is interested in a home health aide during the daytime. Denies CP, SOB. She does report continued nausea, will add PPI daily. Review of Systems Review of Systems: All systems reviewed & are unremarkable except as noted in HPI and below Neurologic: Reports Abnormal speech present (slow to respond reported baseline) Exam Const: General: comfortable and no acute distress Orientation/consciousness: oriented to person, oriented to place and oriented to time Other: Pleasant female HENMT: Mouth: Yes moist mucous membranes Eyes: General: appearance normal, both eyes and all related structures Sclera: sclerae normal Pupils: Equal, round and reactive pupils present Neck: Neck: supple and no JVD Resp: Effort & Inspection: normal respiratory effort Auscultation: clear to auscultation bilaterally Cardio: Rate: regular rate Rhythm: regular rhythm GI: Auscultation: normal bowel sounds Skin: General skin exam: normal color, no rashes or lesions noted and wounds noted Wounds: wounds noted Other: Spinal incision healed no erythema or drainage Neuro: General: oriented to person, oriented to place, oriented to time and Unable to assess gait Cranial nerves: Yes Equal, round and reactive pupils present Cognition (Neuro): normal cognition Speech: Abnormal speech present (slow to respond reported baseline) Gait exam (Neuro): Unable to assess gait Sensory Exam: normal sensation Extrem: General: normal to inspection Psych: Mental Status: mental status grossly normal Affect: normal affect Objective Data Vital Signs Vital Signs: Vital Signs - 24 hr 02/22/25 16:00 02/22/25 20:00 02/23/25 00:00 Temperature 98.0 F 98.4 F Pulse Rate 72 72 72 Respiratory Rate 18 18 17 Blood Pressure 159/80 H 143/75 H Pulse Oximetry 90 90 96 Oxygen Delivery Room Air Room Air Room Air Intake/Output Intake/Output: Intake & Output 02/20/25 02/21/25 02/22/25 02/23/25 23:59 23:59 23:59 23:59 Intake Total 1710 2045 1680 550 Output Total 550 Balance 1160 2045 1680 550 Meds/Results Medications: Active Medications Generic Name Dose Route Start Last Admin Trade Name Freq PRN Reason Stop Dose Admin Acetaminophen 650 mg 02/13/25 11:34 02/22/25 16:14 Acetaminophen 325 Mg Tablet PO 650 mg Q4H PRN Administration Mild Pain (1-3) or Fever Amlodipine Besylate 5 mg 02/23/25 09:00 02/23/25 08:43 Amlodipine Besylate 5 Mg Tablet PO 5 mg DAILY BONITA Administration Apixaban 5 mg 02/23/25 18:00 Apixaban 2.5 Mg Tablet PO Q12H BONITA Doxycycline Hyclate 100 mg 02/20/25 09:00 02/23/25 08:42 Doxycycline Hyclate 100 Mg Tablet PO 02/23/25 21:01 100 mg Q12HR BONITA Administration Gabapentin 100 mg 02/13/25 14:00 02/23/25 05:47 Gabapentin 100 Mg Capsule PO 100 mg Q8H BONITA Administration Hydrochlorothiazide 12.5 mg 02/14/25 09:00 02/23/25 08:42 Hydrochlorothiazide 12.5 Mg Capsule PO 12.5 mg QAM BONITA Administration Sodium Chloride 1,000 mls @ 75 mls/hr 02/23/25 08:30 Normal Saline Iv IV CONT .[id number] [facility] Levothyroxine Sodium 112 mcg 02/14/25 06:30 02/23/25 05:47 Levothyroxine Sodium 112 Mcg Tablet PO 112 mcg DAILY@0630 BONITA Administration Losartan Potassium 100 mg 02/14/25 09:00 02/23/25 08:43 Losartan Potassium 50 Mg Tablet PO 100 mg QAM BONITA Administration Magnesium Hydroxide 30 ml 02/19/25 09:08 Magnesium Hydroxide Susp 30 Ml Udc PO QAM PRN Constipation Metoclopramide HCl 5 mg 02/20/25 07:50 02/23/25 05:47 Metoclopramide Hcl 5 Mg Tablet PO 5 mg Q6H PRN Administration Nausea And Vomiting Oxycodone HCl 5 mg 02/18/25 10:08 02/23/25 05:47 Oxycodone Hcl (*Crx) 5 Mg Tab Ir PO 5 mg Q6HR PRN Administration Pain Rated 4-6 Polyethylene Glycol 17 gm 02/22/25 09:00 02/23/25 08:43 Polyethylene Glycol 3350 17 Gm Powd.Pack PO 17 gm Q12H BONITA Administration Promethazine HCl 25 mg 02/21/25 17:21 02/22/25 17:27 Promethazine Hcl 25 Mg Tablet PO 25 mg Q6H PRN Administration Nausea And Vomiting Senna/Docusate Sodium 2 tab 02/22/25 09:00 02/23/25 08:42 Senna/Docusate Sodium Tablet PO 2 tab BID BONITA Administration Sumatriptan Succinate 100 mg 02/13/25 11:33 Sumatriptan Succinate 25 Mg Tablet PO DAILY PRN Headache Topiramate 100 mg 02/14/25 09:00 02/23/25 08:43 Topiramate 100 Mg Tablet PO 100 mg DAILY BONITA Administration Verapamil HCl 120 mg 02/13/25 21:00 02/23/25 08:42 Verapamil Hcl Er 120 Mg Tablet PO 120 mg Q12HR BONITA Administration Radiology Results: ITS Impressions Cervical Spine CT 02/13/25 07:38 IMPRESSION: HEAD: 1. No acute intracranial findings. C-SPINE: 1. No acute fracture. 2. Degenerative and chronic findings as above. Head CT 02/13/25 07:38 IMPRESSION: HEAD: 1. No acute intracranial findings. C-SPINE: 1. No acute fracture. 2. Degenerative and chronic findings as above. Thoracic/Lumbar Spine CT 02/13/25 08:42 IMPRESSION: 1. Age-indeterminate compression fracture of T10, new from 05/08/2022. 2. Mild thoracic spondylosis and severe lumbar spondylosis. 3. Posterior fusion procedure from T10 to the sacrum and iliac bones. 4. Airspace and groundglass opacities in left lung lower lobe with volume loss, consistent with atelectasis versus pneumonia. Pulmonary Perfusion Imaging 02/14/25 10:56 IMPRESSION: 1. Nondiagnostic (low or intermediate probability) for pulmonary embolism. Abdomen/Pelvis CT 02/15/25 10:12 IMPRESSION: 1. No acute intra-abdominal/pelvic process. 2. Consolidation and patchy groundglass opacities in the left lower lobe which could be due to pneumonia although the region of groundglass opacity also raises possibility of pulmonary infarcts. Venous Doppler Study 02/16/25 14:47 Impression: Bilateral DVT detailed above Abdomen X-Ray 02/21/25 17:33 IMPRESSION: Constipation. Chest X-Ray 02/23/25 08:13 Impression: No acute cardiopulmonary abnormality. Labs Labs: Laboratory Results - last 24 hr 02/23/25 07:32 WBC 8.1 RBC 3.14 L Hgb 9.3 L Hct 29.9 L MCV 95.2 MCH 29.6 MCHC 31.1 L RDW 17.4 H Plt Count 236 MPV 8.1 L Immature Gran % (Auto) 1.5 H Neut % (Auto) 67.8 Lymph % (Auto) 17.9 L [place] % (Auto) 8.9 Eos % (Auto) 3.0 Baso % (Auto) 0.9 Lymph # (Auto) 1.45 [place] # (Auto) 0.72 Eos # (Auto) 0.24 Baso # (Auto) 0.07 Abs Immat Gran (auto) 0.12 H Absolute Neuts (auto) 5.51 Absolute Nucleated RBC 0.00 Nucleated RBC % 0.0 Sodium 141 Potassium 4.2 Chloride 108 H Carbon Dioxide 28 Anion Gap 5 BUN 23 H Creatinine 1.30 H Estim Creat Clear Calc 33 Estimated GFR 40 L Glucose 103 Calculated Osmolality 295 Calcium 8.7 Phosphorus 3.9 Magnesium 2.0 Quality VTE Prophylaxis VTE prophylaxis: pharmacologic ordered
[2025-02-23] MEDS: FAMOTIDINE 20 MG TABLET PO ×2 (09:34→21:40)
[2025-02-23] MEDS: SODIUM CHLORIDE 0.9% IV 1,000 ML 75 ML IV CONT ×2 (09:35→23:33)
--- NOTE | 2025-02-23 14:01 | WNDPHOTO ---
PHOTO ONLY - See Nursing Notes and/ or assessments for documentation.
[2025-02-23 16:00] VITALS: BP 135/74; PULSE 70; RESP 18; TEMP 36.6; O2SAT 98
[2025-02-23] MEDS: APIXABAN 2.5 MG TABLET 5 MG PO (18:00)
[2025-02-23 20:00] VITALS: PULSE 69; RESP 16; O2SAT 97
[2025-02-24] VITALS: BP 141/60; PULSE 69; RESP 16; TEMP 36.6; O2SAT 97
[2025-02-24 05:31] LABS: Hematocrit 30.5 % (35.0-42.0); Hemoglobin 9.5 g/dL (11.7-13.8); Immature Granulocyte Percent A 1.6 % (0.0-0.0); Lymphocytes Absolute Auto 1.75 K/mm3 (1.10-4.50); Mean Corpuscular HGB Conc 31.1 g/dL (32-36); Mean Corpuscular Hemoglobin 29.7 pg (27.0-31.0); Mean Corpuscular Volume 95.3 fL (78.0-102.0); Nucleated Red Blood Cells Absolute Auto 0.00 K/mm3 (0.00-0.00); Nucleated Red Blood Cells Perc 0.0 % (0-0.0); Platelet Count Result 276 K/mm3 (150-420); Red Blood Count 3.20 M/mm3 (4.20-5.40); White Blood Count 8.1 K/mm3 (4.8-10.8)
[2025-02-24 05:47] LABS: Anion Gap 7 mmol/L (4-12); Blood Urea Nitrogen 24 mg/dL (7-17); Calcium 8.6 mg/dL (8.4-10.2); Carbon Dioxide 26 mmol/L (22-30); Chloride 109 mmol/L (98-107); Estimated CRCL calculation 37 ml/min; Estimated Glomerular Filt Rate 46; Glucose 102 mg/dL (65-110); Magnesium 1.9 mg/dL (1.6-2.3); Osmolality Calculated 298 mOsm/kg (285-295); Potassium 3.6 mmol/L (3.4-5.0); Sodium 142 mmol/L (137-145)
[2025-02-24] MEDS: GABAPENTIN 100 MG CAPSULE PO ×3 (06:31→21:58)
[2025-02-24] MEDS: LEVOTHYROXINE SODIUM 112 MCG TABLET PO (06:31)
[2025-02-24] MEDS: APIXABAN 2.5 MG TABLET 5 MG PO ×2 (06:31→18:09)
[2025-02-24] MEDS: oxyCODONE HCL (*CRX) 5 MG TAB IR PO ×3 (06:31→21:58)
[2025-02-24 08:00] VITALS: BP 162/87; PULSE 76; RESP 16; TEMP 37.2; O2SAT 96
[2025-02-24 08:35] VITALS: PULSE 76; RESP 16; O2SAT 96
[2025-02-24 08:48] LABS: MRSA (PCR) NOT DETECTED (NOT DETECTE)
[2025-02-24] MEDS: VERAPAMIL HCL ER 120 MG TABLET PO ×2 (09:16→21:58)
[2025-02-24] MEDS: SENNA/DOCUSATE SODIUM TABLET 2 TAB PO ×2 (09:16→18:09)
[2025-02-24] MEDS: TOPIRAMATE 100 MG TABLET PO (09:17)
[2025-02-24] MEDS: FAMOTIDINE 20 MG TABLET PO ×2 (09:17→21:58)
[2025-02-24] MEDS: LOSARTAN POTASSIUM 50 MG TABLET 100 MG PO (09:17)
--- NOTE | 2025-02-24 09:52 | P.PNIM_ITS ---
Progress Note: A&P Assessment and Plan (1) Acute respiratory failure with hypoxia: Code(s): J96.01 - Acute respiratory failure with hypoxia Status: Acute Assessment and Plan: Patient presented with hypoxia at oxygen saturation at 87% was placed on 2L NC with improvement. * V/Q Scan :Nondiagnostic (low or intermediate probability) for pulmonary embolism. * CT abdomen and pelvis: no acute findings were noted in the abdomen but consolidation and patchy groundglass opacities in the left lower lobe which could be due to pneumonia although the region of groundglass opacity also raises possibility of pulmonary infarcts were noted * D-dimer obtained and 29 * 02/16 - Eliquis 10 mg until 02/22 * 02/23 - Eliquis 5 mg started per protocol * wean to maintain 92% * patient on room air and maintaining oxygen saturations currently * 02/23 - Insurance denied for skilled therapy has patient is at same goal as she was previously, plan to dc home with outpatient services (2) Pulmonary embolism: Code(s): I26.99 - Other pulmonary embolism without acute cor pulmonale Status: Acute Assessment and Plan: VQ Scan: Nondiagnostic (low or intermediate probability) for pulmonary embolism. CT abdomen and pelvis: no acute findings were noted in the abdomen but consolidation and patchy groundglass opacities in the left lower lobe which could be due to pneumonia although the region of groundglass opacity also raises possibility of pulmonary infarcts were noted D-dimer obtained and 29 start Eliquis for suspected pulmonary embolism venous dopplers were ordered and positive for bilateral DVTs ECHO reviewed, G1DD wean oxygen as tolerated, patient remains on room air today (3) Compression fracture of T10 vertebra: Qualifiers: Encounter type: initial encounter Qualified Code(s): S22.070A - Wedge compression fracture of T9-T10 vertebra, initial encounter for closed fracture Code(s): S22.070A - Wedge compression fracture of T9-T10 vertebra, initial encounter for closed fracture Status: Acute Assessment and Plan: Trauma work-up with ne acute T10 fracture, ED had spoken with patient Ortho/spine physician follow-up outpatient as scheduled. * ANALISA brace while OOB * pain management * PT/OT recommending swing/rehab * Follow-up with her Ortho Spine at [facility] (4) Acute deep vein thrombosis (DVT) of both lower extremities: Code(s): I82.403 - Acute embolism and thrombosis of unspecified deep veins of lower extremity, bilateral Status: Acute Assessment and Plan: bilateral venous dopplers showed thrombus with diminished flow noted in the right peroneal vein, the left common femoral, the left femoral, the left popliteal, the left posterior tibial and the left peroneal veins patient was started on Eliquis 10 mg PO BID BLE without pain, 1+ edema to LLE, trace edema to RLE monitor neurovascular status (5) TIFFANI (acute kidney injury): Code(s): N17.9 - Acute kidney failure, unspecified Status: Acute Assessment and Plan: Cr at 2.45 POA baseline 1.4 (CM obtaining OSH records for recent labs from patients admission in January) * Cr 1.1->1.2->1.22->1.30 today * trend renal failure * avoid nephrotoxin medications * 02/23 - NS 75 ml/hr due to rising Cr, patient encouraged to increase her PO fluid intake * 02/24 - Cr 1.16, improved from 1.3. DC IVFs, encouraged patient to continue to drink more fluids. Recommend outpatient f/u with her PCP * Monitor I&O (6) Pneumonia of left lower lobe due to infectious organism: Code(s): J18.9 - Pneumonia, unspecified organism Status: Resolved Assessment and Plan: 02/23 - pCXR without acute abnomalitis, PNA resolved. Remains on RA MRSA swab positive collect sputum culture if able Antibiotic History: * Ceftriaxone IV 02/13 - 02/19 * Doxycycline IV 02/17 - 02/20 * Azithromycin 02/16 - 02/17 * Doxycycline PO 02/20 - 02/23 (7) Nausea: Code(s): R11.0 - Nausea Status: Acute Assessment and Plan: 02/23 - Famotidine 20 mg BID PO started (8) Hypertension: Code(s): I10 - Essential (primary) hypertension Status: Acute Assessment and Plan: * continued Losartan 100 mg * HCTZ 12.5 mg was resumed 02/14: monitor for TIFFANI * blood pressure has been elevated * 02/23 - amlodipine 5 mg daily * Monitor BP per unit protocol (9) Constipation: Code(s): K59.00 - Constipation, unspecified Status: Acute Assessment and Plan: s/p CT abdomen and pelvis due to nausea and vomiting 02/21 - KUB indicated constipation Patient has had multiple BMs Continue Miralax daily and Senna/Docusate BID (10) UTI (urinary tract infection): Code(s): N39.0 - Urinary tract infection, site not specified Status: Resolved Assessment and Plan: UA suspicious for UTI * IV ceftriaxone 02/13 - 02/19 * urine culture with e. coli, which was sensitive to Ceftriaxone * completed treatment (11) Hypothyroidism (acquired): Code(s): E03.9 - Hypothyroidism, unspecified Status: Acute Assessment and Plan: * Continued Levothyroxine (12) Contusion of lung: Qualifiers: Encounter type: initial encounter Laterality: left Qualified Code(s): S27.321A - Contusion of lung, unilateral, initial encounter Code(s): S27.329A - Contusion of lung, unspecified, initial encounter Status: Acute Assessment and Plan: Secondary to fall * Oxygen as needed * Incentive spirometer * repeat CXR 02/18 without acute findings (13) Spinal surgery in prior 3 months: Code(s): Z98.890 - Other specified postprocedural states Status: Acute Assessment and Plan: See Above Surgery was in January 2025 at [facility] (14) Rhabdomyolysis: Qualifiers: Encounter type: initial encounter Rhabdomyolysis type: traumatic Qualified Code(s): T79.6XXA - Traumatic ischemia of muscle, initial encounter Code(s): M62.82 - Rhabdomyolysis Status: Resolved Assessment and Plan: Resolved Time Spent With Patient Time with patient: 15 - 25 minutes Subjective Date/time seen: 02/24/25 09:52 Interval history: patient is sitting up in the chair today with her TLSO in place, reports back pain is controlled. She understands that insurance denied her for skilled rehab and that she will be discharging home tomorrow. patient is interested in having a home health aide come to the house to help her during the day while her is working, CM has been assisting. patient denies any chest pain, shortness of breath, nausea vomiting or abdominal pain. Review of Systems Review of Systems: All systems reviewed & are unremarkable except as noted in HPI and below Neurologic: Reports Abnormal speech present (slow to respond reported baseline) Exam Const: General: comfortable and no acute distress Orientation/consciousness: oriented to person, oriented to place and oriented to time Other: Pleasant female HENMT: Mouth: Yes moist mucous membranes Eyes: General: appearance normal, both eyes and all related structures Sclera: sclerae normal Pupils: Equal, round and reactive pupils present Neck: Neck: supple and no JVD Resp: Effort & Inspection: normal respiratory effort Auscultation: clear to auscultation bilaterally Cardio: Rate: regular rate Rhythm: regular rhythm GI: Auscultation: normal bowel sounds Skin: General skin exam: normal color, no rashes or lesions noted and wounds noted Wounds: wounds noted Other: Spinal incision healed no erythema or drainage Neuro: General: oriented to person, oriented to place, oriented to time and Unable to assess gait Cranial nerves: Yes Equal, round and reactive pupils present Cognition (Neuro): normal cognition Speech: Abnormal speech present (slow to respond reported baseline) Gait exam (Neuro): Unable to assess gait Sensory Exam: normal sensation Extrem: General: normal to inspection Psych: Mental Status: mental status grossly normal Affect: normal affect Objective Data Vital Signs Vital Signs: Vital Signs - 24 hr 02/23/25 16:00 02/23/25 20:00 02/24/25 00:00 Temperature 97.8 F 97.9 F Pulse Rate 70 69 69 Respiratory Rate 18 16 16 Blood Pressure 135/74 141/60 H Pulse Oximetry 98 97 97 Oxygen Delivery Room Air Room Air Room Air 02/24/25 08:00 Temperature 98.9 F Pulse Rate 76 Respiratory Rate 16 Blood Pressure 162/87 H Pulse Oximetry 96 Oxygen Delivery Room Air Intake/Output Intake/Output: Intake & Output 02/21/25 02/22/25 02/23/25 02/24/25 23:59 23:59 23:59 23:59 Intake Total 2044 1680 2860 250 Balance 2044 1680 2860 250 Meds/Results Medications: Active Medications Generic Name Dose Route Start Last Admin Trade Name Freq PRN Reason Stop Dose Admin Acetaminophen 650 mg 02/13/25 11:34 02/22/25 16:14 Acetaminophen 325 Mg Tablet PO 650 mg Q4H PRN Administration Mild Pain (1-3) or Fever Amlodipine Besylate 5 mg 02/23/25 09:00 02/24/25 09:17 Amlodipine Besylate 5 Mg Tablet PO 5 mg DAILY BONITA Administration Apixaban 5 mg 02/23/25 18:00 02/24/25 06:31 Apixaban 2.5 Mg Tablet PO 5 mg Q12H BONITA Administration Famotidine 20 mg 02/23/25 09:00 02/24/25 09:17 Famotidine 20 Mg Tablet PO 20 mg Q12HR BONITA Administration Gabapentin 100 mg 02/13/25 14:00 02/24/25 06:31 Gabapentin 100 Mg Capsule PO 100 mg Q8H BONITA Administration Hydrochlorothiazide 12.5 mg 02/14/25 09:00 02/24/25 09:16 Hydrochlorothiazide 12.5 Mg Capsule PO 12.5 mg QAM BONITA Administration Levothyroxine Sodium 112 mcg 02/14/25 06:30 02/24/25 06:31 Levothyroxine Sodium 112 Mcg Tablet PO 112 mcg DAILY@0630 BONITA Administration Losartan Potassium 100 mg 02/14/25 09:00 02/24/25 09:17 Losartan Potassium 50 Mg Tablet PO 100 mg QAM BONITA Administration Magnesium Hydroxide 30 ml 02/19/25 09:08 Magnesium Hydroxide Susp 30 Ml Udc PO QAM PRN Constipation Metoclopramide HCl 5 mg 02/20/25 07:50 02/23/25 12:10 Metoclopramide Hcl 5 Mg Tablet PO 5 mg Q6H PRN Administration Nausea And Vomiting Oxycodone HCl 5 mg 02/18/25 10:08 02/24/25 06:31 Oxycodone Hcl (*Crx) 5 Mg Tab Ir PO 5 mg Q6HR PRN Administration Pain Rated 4-6 Polyethylene Glycol 17 gm 02/22/25 09:00 02/24/25 09:16 Polyethylene Glycol 3350 17 Gm Powd.Pack PO 17 gm Q12H BONITA Administration Promethazine HCl 25 mg 02/21/25 17:21 02/22/25 17:27 Promethazine Hcl 25 Mg Tablet PO 25 mg Q6H PRN Administration Nausea And Vomiting Senna/Docusate Sodium 2 tab 02/22/25 09:00 02/24/25 09:16 Senna/Docusate Sodium Tablet PO 2 tab BID BONITA Administration Sumatriptan Succinate 100 mg 02/13/25 11:33 Sumatriptan Succinate 25 Mg Tablet PO DAILY PRN Headache Topiramate 100 mg 02/14/25 09:00 02/24/25 09:17 Topiramate 100 Mg Tablet PO 100 mg DAILY BONITA Administration Verapamil HCl 120 mg 02/13/25 21:00 02/24/25 09:16 Verapamil Hcl Er 120 Mg Tablet PO 120 mg Q12HR BONITA Administration Radiology Results: ITS Impressions Cervical Spine CT 02/13/25 07:38 IMPRESSION: HEAD: 1. No acute intracranial findings. C-SPINE: 1. No acute fracture. 2. Degenerative and chronic findings as above. Head CT 02/13/25 07:38 IMPRESSION: HEAD: 1. No acute intracranial findings. C-SPINE: 1. No acute fracture. 2. Degenerative and chronic findings as above. Thoracic/Lumbar Spine CT 02/13/25 08:42 IMPRESSION: 1. Age-indeterminate compression fracture of T10, new from 05/08/2022. 2. Mild thoracic spondylosis and severe lumbar spondylosis. 3. Posterior fusion procedure from T10 to the sacrum and iliac bones. 4. Airspace and groundglass opacities in left lung lower lobe with volume loss, consistent with atelectasis versus pneumonia. Pulmonary Perfusion Imaging 02/14/25 10:56 IMPRESSION: 1. Nondiagnostic (low or intermediate probability) for pulmonary embolism. Abdomen/Pelvis CT 02/15/25 10:12 IMPRESSION: 1. No acute intra-abdominal/pelvic process. 2. Consolidation and patchy groundglass opacities in the left lower lobe which could be due to pneumonia although the region of groundglass opacity also raises possibility of pulmonary infarcts. Venous Doppler Study 02/16/25 14:47 Impression: Bilateral DVT detailed above Abdomen X-Ray 02/21/25 17:33 IMPRESSION: Constipation. Chest X-Ray 02/23/25 08:13 Impression: No acute cardiopulmonary abnormality. Labs Labs: Laboratory Results - last 24 hr 02/24/25 02/24/25 05:20 07:34 WBC 8.1 RBC 3.20 L Hgb 9.5 L Hct 30.5 L MCV 95.3 MCH 29.7 MCHC 31.1 L RDW 17.1 H Plt Count 276 MPV 8.3 L Immature Gran % (Auto) 1.6 H Neut % (Auto) 65.3 Lymph % (Auto) 21.7 Ada % (Auto) 7.8 Eos % (Auto) 2.9 Baso % (Auto) 0.7 Lymph # (Auto) 1.75 Ada # (Auto) 0.63 Eos # (Auto) 0.23 Baso # (Auto) 0.06 Abs Immat Gran (auto) 0.13 H Absolute Neuts (auto) 5.25 Absolute Nucleated RBC 0.00 Nucleated RBC % 0.0 Sodium 142 Potassium 3.6 Chloride 109 H Carbon Dioxide 26 Anion Gap 7 BUN 24 H Creatinine 1.16 H Estim Creat Clear Calc 37 Estimated GFR 46 L Glucose 102 Calculated Osmolality 298 H Calcium 8.6 Magnesium 1.9 Nasal MRSA (PCR) Not detected Quality VTE Prophylaxis VTE prophylaxis: pharmacologic ordered
[2025-02-24] MEDS: METOCLOPRAMIDE HCL 5 MG TABLET PO (13:04)
[2025-02-24 16:30] VITALS: BP 145/65; PULSE 69; RESP 16; TEMP 36.3; O2SAT 96
[2025-02-24 20:00] VITALS: PULSE 68; RESP 18; O2SAT 95
[2025-02-25] VITALS: BP 147/67; PULSE 68; RESP 18; TEMP 36.7; O2SAT 95
[2025-02-25] MEDS: GABAPENTIN 100 MG CAPSULE PO ×2 (06:18→13:28)
[2025-02-25] MEDS: LEVOTHYROXINE SODIUM 112 MCG TABLET PO (06:19)
[2025-02-25] MEDS: APIXABAN 2.5 MG TABLET 5 MG PO ×2 (06:19→17:13)
[2025-02-25 07:45] VITALS: BP 157/72; PULSE 79; RESP 16; TEMP 36.7; O2SAT 97
[2025-02-25 08:35] VITALS: PULSE 79; RESP 16; O2SAT 97
--- NOTE | 2025-02-25 09:26 | P.DS_ITS ---
DS: Admitting Diagnosis Discharge Date 02/25/2025 Admitting Diagnosis T10 Lumbar Fracture DS: Discharge Diagnosis Discharge Diagnosis (1) Pulmonary embolism: Code(s): I26.99 - Other pulmonary embolism without acute cor pulmonale Status: Acute Assessment and Plan: VQ Scan: Nondiagnostic (low or intermediate probability) for pulmonary embolism. CT abdomen and pelvis: no acute findings were noted in the abdomen but consolidation and patchy groundglass opacities in the left lower lobe which could be due to pneumonia although the region of groundglass opacity also raises possibility of pulmonary infarcts were noted D-dimer elevated Started Eliquis per treatment protocol, will dc home on Eliquis 5 mg BID venous dopplers were ordered and positive for bilateral DVTs ECHO reviewed, G1DD Patient weaned off oxygen (2) Compression fracture of T10 vertebra: Qualifiers: Encounter type: initial encounter Qualified Code(s): S22.070A - Wedge compression fracture of T9-T10 vertebra, initial encounter for closed fracture Code(s): S22.070A - Wedge compression fracture of T9-T10 vertebra, initial encounter for closed fracture Status: Acute Assessment and Plan: Trauma work-up with ne acute T10 fracture, ED had spoken with patient Ortho/spine physician follow-up outpatient as scheduled. * TSLO brace while OOB * pain management * PT/OT recommending swing/rehab * Follow-up with her Ortho Spine at [facility] (3) Acute deep vein thrombosis (DVT) of both lower extremities: Code(s): I82.403 - Acute embolism and thrombosis of unspecified deep veins of lower extremity, bilateral Status: Acute Assessment and Plan: bilateral venous dopplers showed thrombus with diminished flow noted in the right peroneal vein, the left common femoral, the left femoral, the left popliteal, the left posterior tibial and the left peroneal veins (4) TIFFANI (acute kidney injury): Code(s): N17.9 - Acute kidney failure, unspecified Status: Resolved Assessment and Plan: Cr at 2.45 POA baseline 1.4 (CM obtaining OSH records for recent labs from patients admission in January) * avoid nephrotoxin medications * 02/23 - NS 75 ml/hr due to rising Cr, patient encouraged to increase her PO fluid intake * 02/24 - Cr 1.16, improved from 1.3. DC IVFs, encouraged patient to continue to drink more fluids. Recommend outpatient f/u with her PCP * Monitor I&O (5) Pneumonia of left lower lobe due to infectious organism: Code(s): J18.9 - Pneumonia, unspecified organism Status: Resolved Assessment and Plan: 02/23 - pCXR without acute abnomalitis, PNA resolved. Remains on RA MRSA swab positive collect sputum culture if able Antibiotic History: * Ceftriaxone IV 02/13 - 02/19 * Doxycycline IV 02/17 - 02/20 * Azithromycin 02/16 - 02/17 * Doxycycline PO 02/20 - 02/23 (6) Nausea: Code(s): R11.0 - Nausea Status: Acute Assessment and Plan: 02/23 - Famotidine 20 mg BID PO started (7) Hypertension: Code(s): I10 - Essential (primary) hypertension Status: Acute Assessment and Plan: * continued Losartan 100 mg * HCTZ 12.5 mg was resumed 02/14: monitor for TIFFANI * blood pressure has been elevated * 02/23 - amlodipine 5 mg daily * Monitor BP per unit protocol (8) Constipation: Code(s): K59.00 - Constipation, unspecified Status: Resolved Assessment and Plan: s/p CT abdomen and pelvis due to nausea and vomiting 02/21 - KUB indicated constipation Patient has had multiple BMs Continue Miralax daily and Senna/Docusate BID (9) UTI (urinary tract infection): Code(s): N39.0 - Urinary tract infection, site not specified Status: Resolved Assessment and Plan: UA suspicious for UTI * IV ceftriaxone 02/13 - 02/19 * urine culture with e. coli, which was sensitive to Ceftriaxone * completed treatment (10) Hypothyroidism (acquired): Code(s): E03.9 - Hypothyroidism, unspecified Status: Acute Assessment and Plan: * Continued Levothyroxine (11) Contusion of lung: Qualifiers: Encounter type: initial encounter Laterality: left Qualified Code(s): S27.321A - Contusion of lung, unilateral, initial encounter Code(s): S27.329A - Contusion of lung, unspecified, initial encounter Status: Acute Assessment and Plan: Secondary to fall * Oxygen as needed * Incentive spirometer (12) Spinal surgery in prior 3 months: Code(s): Z98.890 - Other specified postprocedural states Status: Acute Assessment and Plan: See Above Surgery was in January 2025 at [facility] (13) Rhabdomyolysis: Qualifiers: Encounter type: initial encounter Rhabdomyolysis type: traumatic Qualified Code(s): T79.6XXA - Traumatic ischemia of muscle, initial encounter Code(s): M62.82 - Rhabdomyolysis Status: Resolved Assessment and Plan: Resolved (14) Acute respiratory failure with hypoxia: Code(s): J96.01 - Acute respiratory failure with hypoxia Status: Resolved DS: Summary Hospital Course Hospital Course: Ms Gil is a 70-year-old female who presents to the emergency room on February 13, 2025 after a fall at home, during that workup she was found to have acute T10 fracture. Patient is status post spinal surgery in January 2025 [facility], for orthopedic surgeon's office was consulted the patient is to remain in a TLSO brace while out of bed. Patient should follow-up with [facility] orthopedic spine. patient participated with PT and OT, attempted to re- enroll her in swing bed therapy for continued PT however insurance declined since patient already had skilled therapy at the end of January 2025 and remains at the same functional level as she did during that skilled session. Patient's hospitalization was complicated by developing acute hypoxia with shortness of breath requiring oxygen. Due to TIFFANI, a CTA of the chest can not be completed therefore a V/Q scan was conducted which was 4 days being nondiagnostic with a low or intermediate probability for pulmonary embolism. Ultrasound duplex of the bilateral legs found DVT in right peroneal vein, the left common femoral, the left femoral, the left popliteal, the left posterior tibial and the left peroneal veins. patient was started on Eliquis 10 mg b.i.d. for therapeutic treatment, she will continue Eliquis 5 mg b.i.d.. She will need to follow up with primary care doctor for further outpatient management of her PE and DVT. Patient did not require oxygen at the time of discharge and was ambulating at her baseline with physical therapy in no distress. Patient was also found to have a urinary tract infection and concerns for pneumonia of the left lower lobe. She was treated with the following antibiotics: * Ceftriaxone IV 02/13 - 02/19 * Doxycycline IV 02/17 - 02/20 * Azithromycin 02/16 - 02/17 * Doxycycline PO 02/20 - 02/23 during this hospital course patient had elevated hypertension, her home losartan and hydrochlorothiazide was continued, however the hydrochlorothiazide was temporarily discontinued due to an AKA but resumed on February 14. Norvasc 5 mg was added for additional blood pressure control. Patient will follow up with primary care doctor for outpatient management of her hypertension. Patient does report recurrent nausea, particularly at night we will await laying flat her bed due to her spinal fracture. she was started on famotidine b.i.d. which had marginal improvement in her symptoms. Patient continue to work with physical and occupational therapy. She was unable to be reinserted into a skilled therapy stay due to recent skilled therapy currently still at the same level. Patient will be discharged home with her spouse and a walker. She reports she does have other DME available at home. Time Spent with Patient Time attestation: Total time spent providing and/or coordinating discharge services: Exam Const: General: comfortable and no acute distress Orientation/consciousness: oriented to person, oriented to place and oriented to time Other: Pleasant female HENMT: Mouth: Yes moist mucous membranes Eyes: General: appearance normal, both eyes and all related structures Sclera: sclerae normal Pupils: Equal, round and reactive pupils present Neck: Neck: supple and no JVD Resp: Effort & Inspection: normal respiratory effort Auscultation: clear to auscultation bilaterally Cardio: Rate: regular rate Rhythm: regular rhythm GI: Auscultation: normal bowel sounds Skin: General skin exam: normal color, no rashes or lesions noted and wounds noted Wounds: wounds noted Other: Spinal incision healed no erythema or drainage Neuro: General: oriented to person, oriented to place, oriented to time and Unable to assess gait Cranial nerves: Yes Equal, round and reactive pupils present Cognition (Neuro): normal cognition Speech: Abnormal speech present (slow to respond reported baseline) Gait exam (Neuro): Unable to assess gait Sensory Exam: normal sensation Extrem: General: normal to inspection Psych: Mental Status: mental status grossly normal Affect: normal affect Discharge Plan Discharge Attending physician on discharge: Jayson Mijares Consulting providers: Traci Herrera Discharging Clinician: Manny Harris Anticipated Discharge Date/Time: 02/25/25 09:25 Patient Disposition: Home with Home Health Service Activity: may shower, as tolerated and other - see discharge instructions Diet: regular Discharge Instructions: Per Care Coordination: [facility] will follow you at discharge. They are planning to see you on Friday or of next week and will give you a call to schedule a date and time. Their phone number is [phone]. 1). T10 fracture * PT/OT * Pain management * Wear TSLO brace with ambulation * Bowel regiment * Follow-up with your Orthopedic Spine doctor at [facility] 2) Pulmonary embolism and lower extremity DVTs * Continue Eliquis twice daily * You are at higher risk for bleeding from minor cuts and scrapes * You are at high risk for internal bleeding from falls, always use your walker and take it slow * Follow-up with your primary care doctor for outpatient management of you Eliquis 3) acute kidney injury * continue to drink plenty of fluids * follow-up with your primary care doctor for outpatient labs if required 4) Hypertension * Continue home losartan hydrochlorothiazide, Norvasc 5 mg daily has been added for blood pressure control * follow-up with your primary care doctor for outpatient management. Blood pressure How can you care for yourself at home? ? Keep track of any new symptoms or changes in your symptoms. ? Rest until you feel better. ? Be safe with medicines. Take your medicines exactly as prescribed. Call your doctor if you think you are having a problem with your medicine. ? Do not drive after taking a prescription pain medicine. ? Ensure to follow-up with primary care physician as indicated and provide updated medication list provided to you at discharge. When should you call for help? Call 911 anytime you think you may need emergency care. For example, call if: ? You passed out (lost consciousness). Call your doctor now or seek immediate medical care if: ? You have new symptoms like fever, difficulty breathing, Chest pain, vomiting, or rash. ? You have new or different pain. ? You are confused and are having trouble thinking clearly. ? Your symptoms are getting worse. Watch closely for changes in your health, and be sure to contact your doctor if: ? You do not get better as expected. Patient Instructions: Antibiotic Form, Apixaban (By mouth), Pulmonary Embolism (DC), Deep Vein Thrombosis (DC), Fall Prevention for Older Adults (DC), Thoracolumbosacral Orthosis (DC), Hypertension in the Older Adult (DC) Patient Language: Mexican Stand Alone Forms: General Discharge Information Follow-up/Referrals: [facility] [Outside] - 2 weeks Referral Note: Orthopedic Spine Follow-up Carlos Ramesh MD [Primary Care Provider, Internal Medicine] - 1 week Discharge Medications: New sennosides-docusate sodium [Senokot-S] 8.6-50 mg Tablet 1 tab-cap PO BID 30 Days Qty: 60 0RF amlodipine [Norvasc] 5 mg Tablet 5 mg PO DAILY 30 Days Qty: 30 0RF famotidine 20 mg Tablet 20 mg PO Q12HR 30 Days Qty: 60 0RF oxycodone 5 mg Tablet 5 mg PO Q6HR PRN (Reason: Pain Rated 4-6) Qty: 10 0RF ondansetron 4 mg tablet,disintegrating 4 mg PO Q8H PRN (Reason: nausea and vomiting) Qty: 10 0RF apixaban 5 mg tablet 5 mg PO Q12H 30 Days Qty: 60 0RF Continued losartan-hydrochlorothiazide 100-12.5 mg tablet 1 tablet PO DAILY topiramate 50 mg tablet 100 mg PO DAILY gabapentin 100 mg capsule 100 mg PO Q8H Patient Comments: filled on 02-04-25 script was for 14 days verapamil 120 mg tablet extended release 120 mg PO BID sumatriptan succinate 100 mg tablet 100 mg PO DAILY PRN (Reason: Headache) levothyroxine 112 mcg tablet 112 mcg PO DAILY Date of admission: 02/16/25 14:36 Primary Care Provider: Carlos Ramesh Admitting Provider: Jayson Mijares Attending physician on admission: Jayson Mijares Condition: Stable Quality VTE Prophylaxis VTE prophylaxis: pharmacologic ordered
[2025-02-25] MEDS: LOSARTAN POTASSIUM 50 MG TABLET 100 MG PO (09:29)
[2025-02-25] MEDS: FAMOTIDINE 20 MG TABLET PO (09:29)
[2025-02-25] MEDS: PROMETHAZINE HCL 25 MG TABLET PO ×2 (09:29→17:13)
[2025-02-25] MEDS: SENNA/DOCUSATE SODIUM TABLET 2 TAB PO (09:29)
[2025-02-25] MEDS: oxyCODONE HCL (*CRX) 5 MG TAB IR PO ×2 (09:29→17:14)
[2025-02-25] MEDS: VERAPAMIL HCL ER 120 MG TABLET PO (09:30)
[2025-02-25] MEDS: TOPIRAMATE 100 MG TABLET PO (09:30)
[2025-02-25] MEDS: ACETAMINOPHEN 325 MG TABLET 650 MG PO (13:31)
[2025-02-25 16:45] VITALS: BP 125/65; PULSE 68; RESP 18; TEMP 36.4; O2SAT 98
--- NOTE | 2025-02-25 18:15 | PC.NURSE ---
Patient discharging home. IV site removed, dressing applied. All discharge instructions and education reviewed with patient and . Both parties state understanding. All belongings gathered together and sent home with patient. Patient had no home medication to return. Teaching done with patients on how to change dressing and clean surgical incision. states understanding. Both parties deny and questions at discharge. This nurse assisted patient to dress in clothing from home. Patient transported to front door via wheelchair by this nurse. Left via private vehicle with .
--- NOTE | 2025-02-28 09:10 | PC.NURSE ---
Discharge call back complete, no questions regarding dc instructions, doing well at home, no questions about medications
== END 2025-02-25 18:15 | disposition home health service (06) | DRG 175 ==
LOC: CHSED 09:50 → CHS2ND 10:08
PROVIDERS: Emergency Medicine; Nurse Practitioner; Nurse Practitioner Adult Health; Nurse Practitioner Family; Admitting Provider Internal Medicine; Emergency Provider Emergency Medicine; PCP Internal Medicine; Visit Provider Internal Medicine
DX: I26.99 Other pulmonary embolism without acute cor pulmonale (principal); J18.9 Pneumonia, unspecified organism; J96.01 Acute respiratory failure with hypoxia; S22.070A Wedge compression fracture of T9-T10 vertebra, initial encounter for closed fracture; S27.321A Contusion of lung, unilateral, initial encounter; N17.9 Acute kidney failure, unspecified; N39.0 Urinary tract infection, site not specified; I82.412 Acute embolism and thrombosis of left femoral vein; I82.432 Acute embolism and thrombosis of left popliteal vein; M62.82 Rhabdomyolysis; I82.453 Acute embolism and thrombosis of peroneal vein, bilateral; W19.XXXA Unspecified fall, initial encounter; B96.20 Unspecified Escherichia coli [E. coli] as the cause of diseases classified elsewhere; E03.9 Hypothyroidism, unspecified; I10 Essential (primary) hypertension; K59.00 Constipation, unspecified; Z98.890 Other specified postprocedural states
CPT/HCPCS: 36415; 70450; 71045; 71046; 72125; 72128; 72131; 74018; 74176; 78582; 80048; 80053; 81001; 82550; 83605; 83735; 84100; 84484; 85025; 85380; 87077; 87086; 87186; 87641; 93005; 93306; 93970; 96361; 96365; 96366; 96372; 96375; 96376; 97110; 97161; 97165; 97530; 97535; 99285; A9567; A9270; A9540; G0378; J0456; J0696; J1171; J1650; J1885; J2405; J2765; J3360; J7030; J7040; J7050

== ENCOUNTER 2025-03-11 11:04 | Outpatient (NON) | payer MEDICARE, SELFPAY ==
[2025-03-11 11:38] LABS: Hematocrit 35.9 % (35.0-42.0); Hemoglobin 10.8 g/dL (11.7-13.8); Mean Corpuscular HGB Conc 30.1 g/dL (32-36); Mean Corpuscular Hemoglobin 29.7 pg (27.0-31.0); Mean Corpuscular Volume 98.6 fL (78.0-102.0); Platelet Count Result 280 K/mm3 (150-420); Red Blood Count 3.64 M/mm3 (4.20-5.40); White Blood Count 7.0 K/mm3 (4.8-10.8)
[2025-03-11 11:39] LABS: Glucose Urine UA Negative (Negative); Leukocyte Esterase Ur 2+ (Negative); Nitrate Urine Negative (Negative); Specific Grav Ur >= 1.030 (1.010-1.020)
--- OUTSIDE RECORDS SUMMARY | 2025-03-11 11:48 | XMS_ITS | Clinical Summary ---
Author Organization [facility] Address [address] [place] [address] Care Team Providers Care Pipe And Tank Fabricator Name Role Phone Isaac Shannon MD Primary Care Provider Gian mancuso Source Comments [facility],non-owned Affiliates and Associated Physician Practices is amultiple site organization consisting of ambulatory clinics and hospital sitesin [place], [place], [place] and [place]. This disclosure is being madepursuant to the Care Everywhere program and may not contain all information available regarding this patient. Last updated 18.[facility] Allergies No known active allergies Medications * [...] patient's age to complete this topic Insurance [facility] Care Teams Pipe And Tank Fabricator Relationship Specialty Start Date End Date Isaac Shannon MD PCP - General Anesthesiology 07/07/13
--- OUTSIDE RECORDS SUMMARY | 2025-03-11 11:48 | XMS_ITS | Clinical Summary ---
Author Organization [facility] Address [address] [place] [id number] Care Team Providers Care Security Inspector Name Role Phone Unavailable Primary Care Provider [...] Scan (General) 2018 COVID-19 Vaccine ( - 2024-2 6 season) 2025 Influenza Adult (#1) 2025 RSV Immunization or 60+ Years (1 - 1-dose 75+ series) 01/20/2028 Hepatitis A Vaccines Aged Out No long er eligible based on patient's age to complete this topic Meningococcal B Vaccine Aged Out No l onger eligible based on patient's age to complete this topic Meningococcal Vaccine Aged Out No jorge vi eligible based on patient's age to complete this topic RSV Immunizations Under 20 Months Aged Out No longer eligible based on patient's age to complete this topic Insurance [facility]
--- OUTSIDE RECORDS SUMMARY | 2025-03-11 11:48 | XMS_ITS | Clinical Summary ---
Author Organization [facility] Medical Office Building [address] Address [address] [place] [address] Care Team Providers Care Pacu Nurse Name Role Phone Carlos Ramesh MD Primary Care Provider [phone] Shahnaz Simpson NP Unavailable [phone] Allergies Active Allergy Reactions Criticality Noted Date Comments Regadenoson Other (See comments),Anxiety Low 05/21/2021 Reaction: MUSCLE WEAK, ACHE, Red Devil like having a heart attack Medications SUMAtriptan (IMITREX) 100 mg tablet take 1 tablet by oral route once with fluids as early as possible after the onset of a migraine attack;may repeat after 2 hours if headache returns, not to exceed 200mgin 24hrs 0 0 08/17/19 14 Active levothyroxine (SYNTHROID) 112 mcg tablet Take 1 tablet (112 mcg total) 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 1 kit 01/15/20 25 Active lancets misc Use as directed up to 4 times a day. 100 each 1 01/15/20 25 Active diphenhydrAMIN E (BENADRYL) 25 mg capsuleIndicat ions:Urticaria Take 1 tablet/capsule (25 mg total) by mouth every 6 (six) hours as needed for itching 30 capsule 01/15/20 25 Active gabapentin (NEURONTIN) 100 mg capsuleIndicat ions:Pain Take 1 capsule (100 mg total) by mouth every 8 (eight) hours 90 capsule 01/15/20 25 Active multivit minerals-iron- FA-calcium (THERA-M) 9 mg iron-400 mcg tabletIndicati ons:Vitamin Deficiency Prevention Take 1 tablet by mouth daily 30 tablet 01/16/20 25 Active polyethylene glycol (MIRALAX) 17 gram/dose bulk powderIndicati ons:constipati on Take 17 g by mouth daily 510 g 01/15/20 25 Active senna-docusate (PERICOLACE) 8.6-50 mgIndications: constipation Take 2 tablets by mouth 2 (two) times a day 120 tablet 01/15/20 25 Active bisacodyL (DULCOLAX) 10 mg suppositoryInd ications:const ipation Insert 1 suppository (10 mg total) into the rectum daily 30 suppository 01/16/20 25 Active albuterol HFA (PROVENTIL HFA,VENTOLIN HFA,PROAIR HFA) 90 mcg/actuation inhaler Inhale 2 puffs every 4 (four) hours as needed for wheezing 1 each 01/15/20 25 Active traMADoL (ULTRAM) 50 mg tablet 01/16/20 25 Active omeprazole (PriLOSEC) 40 mg capsule 01/15/20 25 Active Thera-M 19 mg iron- 400 mcg tablet 01/26/20 25 Active oxyCODONE (ROXICODONE) 5 mg immediate release tablet Take 1 tablet (5 mg total) by mouth every 4 (four) hours as needed for pain 42 tablet 03/08/20 25 Active polyvinyl alcohol-povido ne (REFRESH CLASSIC) 1.4-0.6 % dropperetteInd ications:Dry Eye Administer 1 drop into both eyes 3 (three) times a day 1 each 01/15/20 25 025 acetaminophen (TYLENOL) 325 mg tablet Take 2 tablets (650 mg total) by mouth every 4 (four) hours as needed for pain 60 tablet 01/15/20 25 025 heparin 5,000 unit/mL injectionIndic ations:Deep Vein Thrombosis Prevention Inject 1 mL (5,000 Units total) under the skin every 8 (eight) hours Keep taking until patient ambulatory or at the facility provider's discretion. 90 mL 01/15/20 25 025 oxyCODONE (ROXICODONE) 5 mg immediate release tablet 01/22/20 25 025 Discontinu ed(Reorder ) Active Problems Problem Noted Date Diagnosed Date Urinary retention 01/14/2025 Assessment & Plan (01/14/2025 2:59 PM CDT): --Tapia removed 01/13 --01/14: trouble with urination over [...] discharge for education. --f/u with PCP 01/14 clinical informatics educator completed education. Delirium 01/10/2025 Assessment & [...] lumbar, and sacral fusion and decompressive laminectomy (A37-[id number]). Operative course complicated by acute blood loss [...] lumbar, and sacral fusion and decompressive laminectomy (G51-nqrrom). Operative course complicated by acute blood loss [...] lumbar, and sacral fusion and decompressive laminectomy (P20-deopny). Operative course complicated by acute blood loss anemia and acute kidney injury. - Surgical post-operative management per primary team. Assessment & Plan (01/14/2025 4:41 PM CDT): --s/p G07-phchvu fusion and decompressive laminectomy on 01/06, closed with nylon, drains x 1, prevena --Reports improvement in preoperative pain --Post-op x-rays completed 01/14 --No HOB restriction --TLSO when OOB --NO janet lifts --PT/OT recs SNF --Patient will follow up with Dr. Dumont outpatient on 01/24/25 at 1:00 pm & 02/16/25 at 11:[address] Dumont at [facility] 6A S/P lumbar spinal fusion [...] syndrome 10/29/2024 Lumbar stenosis with neurogenic claudication 10/2022 Hypothyroidism 10/08/2022 Assessment & Plan (01/12/2025 [...] Encounters Date Type Department Care Team Description 02/16/2025 Telephone [facility] [address] [place] [address] Killian Dumont MD 02/02/2025 1:20 PM CDT Office Visit [facility] [address] Advanced Medicine 6th [place] [address] [place] [address] Killian Dumont MD Fusion of spine of lumbar region; Flatback syndrome of lumbar region; Other form of scoliosis of lumbar spine 02/02/2025 12:55 PM CDT - 02/02/2025 11:59 PM CDT Hospital Encounter [facility] [address] [place] [address] Killian Dumont MD Fusion of spine of lumbar region; Flatback syndrome of lumbar region; Other form of scoliosis of lumbar spine Discharge Disposition: Discharge to home or self care 02/02/2025 Telephone [facility] [address] [place] [address] Unknown, Notinfile 01/21/2025 Telephone [facility] [address] Medical Office Building [address] [place] [address] Killian Dumont MD 01/12/2025 8:45 AM CDT Ancillary Procedure [facility] [address] [place] [address] 01/06/2025 7:30 AM CDT - 01/06/2025 7:00 PM CDT Surgery [facility] [address] [place] [address] Killian Dumont MD FUSION DECOMPRESSION LAMINECTOMY WITH INSTRUMENTATION - Medtronic- Revision instrumented posterior spine fusion A01-nclpru/ilium, L2-L3 laminectomy/foraminot michael, L4-L5, L5-S1 PCO,, autograft, allograft, and bone morphogenetic protein- cut to close 9 hours 01/06/2025 7:29 AM CDT Anesthesia Event [facility] [address] [place] [address] Bobby House MD Montgomery, Andrea J., NP 01/06/2025 5:48 AM CDT - 01/14/2025 6:35 PM CDT Hospital Encounter [address] [address] Killian Dumont MD Postoperative pain (Primary Dx); S/P lumbar spinal fusion; MOISÉS (obstructive sleep apnea); Flatback syndrome of lumbar region [M40.36] Discharge Disposition: Discharge to [facility] 01/05/2025 7:39 AM CDT - 01/05/2025 11:59 PM CDT Hospital En[facility] [address] [place] [address] Killian Dumont MD Flatback syndrome of lumbar region; Other form of scoliosis of lumbar spine Discharge Disposition: Discharge to home or self care 12/30/2024 [facility] [address] [place] [address] Shannan Wynn RN 12/28/2024 8:15 AM CDT - 12/28/2024 11:59 PM CDT Hospital Encounter [facility] [address] [place] [phone] Fusion of lumbar spine Discharge Disposition: Discharge to home or self care 12/28/2024 8:00 AM CDT - 12/28/2024 11:59 PM CDT Hospital Encounter [facility] [address] [place] [phone] Fusion of spine of lumbar region; Flatback syndrome of lumbar region; Other form of scoliosis of lumbar spine; Lumbar pain Discharge Disposition: Discharge to home or self care 12/27/2024 12:00 PM CDT Clinical Support [facility] [address] [place] [address] Office [facility] [address] [place] [phone] Rae Blandon NP Spinal stenosis, lumbar region, with neurogenic claudication (Primary Dx); BMI 34.0-34.9,adult 12/22/2024 1:30 PM CDT Pre-Admission Testing [facility] [address] [place] [phone] Preoperative testing (Primary Dx); Flatback syndrome; Vitamin D deficiency; Other abnormal glucose 12/22/2024 11:00 AM CDT Office Visit [facility] [address] [place] [address] Advanced Medicine 6th [place] [address] [place] [address] Killian Dumont MD Fusion of spine of lumbar region (Primary Dx); Flatback syndrome of lumbar region; Other form of scoliosis of lumbar spine 12/22/2024 10:30 AM CDT - 12/22/2024 11:59 PM CDT Hospital Encounter [facility] [address] [place] [address] Killian Dumont MD Fusion of spine of lumbar region; Flatback syndrome of lumbar region; Other form of scoliosis of lumbar spine Discharge Disposition: Discharge to home or self care 12/22/2024 Documentation [facility] [address] [place] [address] 4 [address] [place] [phone] Francheska Zavala RN 12/21/2024 Orders Only [facility] [address] [place] [address] Office [facility] [address] [place] [phone] Killian Dumont MD Flatback syndrome of lumbar region (Primary Dx); Other form of scoliosis of lumbar spine 12/20/2024 12:15 PM CDT - 12/20/2024 11:59 PM CDT Hospital Encounter [facility] [address] [place] [address] Fusion of spine of lumbar region; Flatback syndrome of lumbar region; Other form of scoliosis of lumbar spine Discharge Disposition: Discharge to home or self care 12/20/2024 12:15 PM CDT - 12/20/2024 11:59 PM CDT Hospital Encounter [facility] [address] [place] [address] Fusion of spine of lumbar region; Flatback syndrome of lumbar region; Other form of scoliosis of lumbar spine Discharge Disposition: Discharge to home or self care 12/20/2024 12:14 PM CDT - 12/20/2024 11:59 PM CDT Hospital Encounter [facility] [address] [place] [address] Fusion of spine of lumbar region; Flatback syndrome of lumbar region; Other form of scoliosis of lumbar spine Discharge Disposition: Discharge to home or self care 12/17/2024 Telephone [facility] [address] [place] [address] Thierry Zuniga from Last 3 Months Surgical [...] Hearing loss Gastritis Migraines 1957 Sleep apnea 2017 PONV (postoperative nausea and vomiting) Delayed emergence from gener al anesthesia denies unexpectedly having t o stay overnight or ICU admission Motion sickness Hypothyroidism Obesity Allergic rhinitis Delirium 01/10/2025 Family History Medical History Relation Name Comments Alcohol abuse Father Derik Piña Leukemia Father Derik Piña Cervical cancer Maternal Grandmother Cancer Mother Corie Piña Diabetes Mother Corie Piña Hypertension Mother Corie Piña Stroke Mother Corie Piña cervical vs ovarian [...] on file 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 Gender Identity Female 01/01/2021 11:17 AM CDT Sexual Orientation Not on file Occupation Industry Job Start Date Job End Date Self Employed Not on file Not on file Not on file Last Filed Vital Signs Vital Sign Reading [...] 02/02/2013 Colon Cancer Screening-DNA Stool Discontinued 02/03/20 13 Colon Cancer Screening-FIT Discontinued 02/02/2013 Colon Cancer Screening-Sigmoidoscopy Discontinued 02/02/2013 Medical Devices Implanted Type Area Dietary Clerk Device Identifier Shelf Expiration Date Model / Serial / Lot Allosource Canpac Nonpurge Frozen Graft 25cc Bone [id number] - [id number] Implanted:Qty: 1 on 10/08/2022 by Killian Dumont MD at [facility] N/A: Back Allosource 12/21/2026 [id number] / / [id number] Nuvasive Inc Reline 5.5mm Lock Open Tulip Spine Screw Bone Nonsterile [id number] - [id number] Implanted:Qty: 6 on 10/08/2022 by Killian Dumont MD at [facility] N/A: Back Nuvasive Inc [id number] / / Nuvasive Inc Reline-O 6.5mm 45mm Polyaxial Spine 2s Screw Bone Nonsterile [id number] - [id number] Implanted:Qty: 2 on 10/08/2022 by Killian Dumont MD at [facility] N/A: Back Nuvasive Inc [id number] / / Nuvasive Inc Reline-O 7.5mm 45mm Polyaxial Spine 2s Screw Bone Nonsterile [id number] - [id number] Implanted:Qty: 4 on 10/08/2022 by Killian Dumont MD at [facility] N/A: Back Nuvasive Inc [id number] / / Nuvasive Inc Brett Spinal Lordotic Reline 5.5x70mm [place] Chromium [id number] - [id number] Implanted:Qty: 1 on 10/08/2022 by Killian Dumont MD at [facility] N/A: Back Nuvasive Inc [id number] / / Nuvasive Inc Brett Spinal Lordotic Reline 5.5x75mm [place] Chromium [id number] - [id number] Implanted:Qty: 1 on 10/08/2022 by Killian Dumont MD at [facility] N/A: Back Nuvasive Inc [id number] / / Medtronic Inc Screw Spinal Posterior Lumbar Multiaxial Solid Cd Horizon Modulex 5.5/6.0mm Stainless Steel [id number] - [id number] Implanted:Qty: 1 on 01/06/2025 by Killian Dumont MD at [facility] Medtronic Inc [id number] / / Medtronic Inc Screw Spinal Posterior Lumbar Multiaxial Solid Cd Horizon Modulex 5.5/6.0mm Stainless Steel [id number] - [id number] Implanted:Qty: 1 on 01/06/2025 by Killian Dumont MD at [facility] Medtronic Inc 02/16/2029 [id number] / / Medtronic Inc Screw Spinal Posterior Lumbar Multiaxial Solid Cd Horizon Modulex 5.5/6.0mm Stainless Steel [id number] - [id number] Implanted:Qty: 1 on 01/06/2025 by Killian Dumont MD at [facility] Medtronic Inc [id number] / / Medtronic Inc Screw Spinal Posterior Lumbar Multiaxial Solid Cd Horizon Modulex 5.5/6.0mm Mas Stainless Steel [id number] - [id number] Implanted:Qty: 1 on 01/06/2025 by Killian Dumont MD at [facility] Medtronic Inc 09/06/2029 [id number] / / [id number] Medtronic Inc Screw Spinal Posterior Lumbar Multiaxial Solid Cd Horizon Modulex 5.5/6.0mm Mas Stainless Steel [id number] - [id number] Implanted:Qty: 1 on 01/06/2025 by Killian Dumont MD at [facility] Medtronic Inc 09/10/2029 [id number] / / [id number] [employer] Frozen 1-4mm Graft 60ml Bone Cancellous [id number] - [id number] - [id number] Implanted:Qty: 1 on 01/06/2025 by Killina Dumont MD at [facility] [employer] [id number] 07/22/2029 [id number] / [id number] / Medtronic Inc Kit Graft Bone Sponge Xlg Infuse 8cc Granules [id number] - [id number] Implanted:Qty: 2 on 01/06/2025 by Killian Dumont MD at [facility] Medtronic Inc 11/02/2025 [id number] / / Medtronic Inc Unid Exp [id number] 5.5 Cc Brett 4upl [id number] - [id number] Implanted:Qty: 2 on 01/06/2025 by Killian Dumont MD at [facility] Medtronic Inc [id number] / / Medtronic Inc Shank [id number] Mdx Osteogrip 6.5x45 [id number] - [id number] Implanted:Qty: 5 on 01/06/2025 by Killian Dumont MD at [facility] Medtronic Inc [id number] / / Medtronic Inc Screw Spinal 7.5x50mm Cd Horizon Osteogrip Thread Nonstrl [id number] - [id number] Implanted:Qty: 4 on 01/06/2025 by Killian Dumont MD at [facility] Medtronic Inc [id number] / / Medtronic Inc Shank Mdx Osteogrip 7.5x45mm Nonsterile [id number] - [id number] Implanted:Qty: 2 on 01/06/2025 by Killian Dumont MD at [facility] Medtronic Inc [id number] / / Medtronic Inc 9.5mm 80mm Multiaxial Cannulated Thoracolumbar Screw Bone [id number] - [id number] Implanted:Qty: 1 on 01/06/2025 by Killian Dumont MD at [facility] Medtronic Inc [id number] / / Medtronic Inc 9.5mm 90mm Multiaxial Cannulated Thoracolumbar Screw Bone [id number] - [id number] Implanted:Qty: 1 on 01/06/2025 by Killian Dumont MD at [facility] Medtronic Inc [id number] / / Medtronic Inc Cd Horizon Break Off Spinal Screw Set Titanium Nonsterile 5.5 Mm [id number] - [id number] Implanted:Qty: 2 on 01/06/2025 by Killian Dumont MD at [facility] Medtronic Inc [id number] / / Medtronic Inc Screw Spinal Posterior Lumbar Multiaxial Solid Cd Horizon Modulex 5.5/6.0mm Mas Stainless Steel [id number] - [id number] Implanted:Qty: 1 on 01/06/2025 by Killian Dumont MD at [facility] Medtronic Inc [id number] / / Medtronic Inc Cd Horizon 5.5mm 500mm Line Straight Brett Spinal Titanium [id number] - [id number] Implanted:Qty: 1 on 01/06/2025 by Killian Dumont MD at [facility] Medtronic Inc [id number] / / Medtronic Inc Screw Spinal Biased Multi-Axial Tulips Double Pack Heads Stainless Steel Cd Horizon Modulex Sterile [id number] - [id number] Implanted:Qty: 2 on 01/06/2025 by Killian Dumont MD at [facility] Medtronic Inc [id number] / / Medtronic Inc Screw Spinal 6.5x45mm Multiaxial Drmas Tulip Self-Tapping Locking Titanium Cd Horizon Modulex Sterile [id number] - [id number] Implanted:Qty: 4 on 01/06/2025 by Killian Dumont MD at [facility] Medtronic Inc [id number] / / Medtronic Inc Screw Spinal Pedicle Dual Thread Solid Cd Horizon Modulex 6.5x40mm [id number] - [id number] Implanted:Qty: 5 on 01/06/2025 by Killina Dumont MD at [facility] N/A: Thoracic -Sacral Spine Medtronic Inc [id number] / / Medtronic Inc Screw Spinal Posterior Lumbar Multiaxial Solid Cd Horizon Modulex 5.5/6.0mm Mas Stainless Steel [id number] - [id number] Implanted:Qty: 1 on 01/06/2025 by Killian Dumont MD at [facility] Medtronic Inc 09/06/2029 [id number] / / Medtronic Inc Screw Spinal Posterior Lumbar Multiaxial Solid Cd Horizon Modulex 5.5/6.0mm Stainless Steel [id number] - [id number] Implanted:Qty: 1 on 01/06/2025 by Killian Dumont MD at [facility] Medtronic Inc 11/02/2029 [id number] / / Medtronic Inc Screw Spinal Posterior Lumbar Multiaxial Solid Cd Horizon Modulex 5.5/6.0mm Stainless Steel [id number] - [id number] Implanted:Qty: 1 on 01/06/2025 by Killian Dumont MD at [facility] Medtronic Inc [id number] / / Procedures Procedure Name Priority Date/Time [...] VIEW IP Routine 01/06/2025 11:17 AM CDT WA AN PROCEDURE PLACEHOLDER Routine 01/06/2025 10:49 AM CDT WA AN PROCEDURE PLACEHOLDER Routine 01/06/2025 10:48 AM CDT WA AN PROCEDURE PLACEHOLDER Routine 01/06/2025 10:47 AM CDT PREPARE PLASMA STAT 01/06/2025 9:56 AM CDT PREPARE RBC STAT 01/06/2025 9:56 AM CDT WA AN PROCEDURE PLACEHOLDER Routine 01/06/2025 9:47 AM CDT WA AN ELECTIVE ENDOTRACHEAL AIRWAY Routine 01/06/2025 9:47 [...] Ottoniel via phone call cell saver ID- [id number]- [facility] Special Needs Pro-[place] table, cell saver, fluoroscopy, microscope, irrigating bipolar, Vikas Pi drill, Medtronic instrumentation, Allosource frozen graft chips, has in Nuvasive Reline to be removedcell saver ID- [id number] SPINAL CORD MONITORING 01/06/2025 7:35 AM CDT Flatback syndrome Case Notes 01/05@1322- Per [facility] via email office needs to edit case - DMF 01/05@1033- Per Francheska via email office needs to edit case - DMF 11/01@1040- Per Ottoniel via phone call cell saver ID- [id number]- [facility] Special Needs Pro-[place] table, cell saver, fluoroscopy, microscope, irrigating bipolar, Vikas Pi drill, Medtronic instrumentation, Allosource frozen graft chips, has in Nuvasive Reline to be removedcell saver ID- [id number] OSTEOTOMY POSTERIOR SPINAL 01/06/2025 7:35 AM CDT Flatback syndrome Case Notes - Per [facility] via email office needs to edit case - DMF 01/05@1033- Per Francheska via email office needs to edit case - DMF 11/01@1040- Per Ottoniel via phone call cell saver ID- [id number]- [facility] Special Needs Pro-[place] table, cell saver, fluoroscopy, microscope, irrigating bipolar, Vikas Pi drill, Medtronic instrumentation, Allosource frozen graft chips, has in Nuvasive Reline to be removedcell saver ID- [id number] REMOVAL HARDWARE SPINE 01/06/2025 7:35 AM CDT Flatback syndrome Case Notes 2- Per [facility] via email office needs to edit case - DMF 01/05@1033- Per Francheska via email office needs to edit case - DMF 11/01@1040- Per Ottoniel via phone call cell saver ID- [id number]- [facility] Special Needs Pro-[place] table, cell saver, fluoroscopy, microscope, irrigating bipolar, Thompson Pi drill, Medtronic instrumentation, Allosource frozen graft chips, has in Nuvasive Reline to be removedcell saver ID- [id number] FUSION DECOMPRESSION LAMINECTOMY WITH INSTRUMENTATION - MEDTRONIC SOLERA 01/06/2025 7:35 AM CDT Flatback syndrome Case Notes 09/03@1322- Per Josue via email office needs to edit case - DMF 01/05@1033- Per Francheska via email office needs to edit case - DMF 11/01@1040- Per Ottoniel via phone call cell saver ID- [id number]- [facility] Special Needs Pro-[place] table, cell saver, fluoroscopy, microscope, irrigating bipolar, Thompson Pi drill, Medtronic instrumentation, Allosource frozen graft chips, has in Nuvasive Reline to be removedcell saver ID- [id number] TYPE AND SCREEN STAT 01/06/2025 6:50 AM [...] balance. Electronically signed by: Javid Hernandez MD Killian Dumont MD IMG XR PROCEDURES Final Re sult * POCT glucose (01/14/2025 5:40 PM CDT) Glucose, POC 138 70 - 199 mg/dL Blood 01/14/2025 5:40 PM CDT 01/14/2025 5:40 PM CDT Killian Dumont MD LAB POCT ORDERABLES - MATEUS CE Final Result [facility] [place] [address] * XR Scoliosis Ap and Lateral (01/14/2025 [...] pelvis Electronically signed by: Jan Mathew MD Goyo Gallo NP IMG XR PROCEDURES Fi nal Result * [...] signed by: Jan Mathew MD Goyo Gallo ELECTROMECHANICAL TECHNICIAN IMG XR PROCEDURES Fi nal Result * POCT glucose (01/14/2025 8:09 AM CDT) Glucose, POC 111 70 - 199 mg/dL Blood 01/14/2025 8:09 AM CDT 01/14/2025 8:09 AM CDT Killian Dumont MD LAB POCT ORDERABLES - MATEUS CE Final Result [facility] [place] [address] * (ABNORMAL) eGFR (01/13/2025 8:48 PM CDT) Pathologist [facility] eGFR 38(L) >=60 mL/min/1. 73 m2 Comment: [...] MD LAB BLOOD ORDERABLES Final Result [facility] [place] [address] * (ABNORMAL) CBC without differential (01/13/2025 8:48 PM CDT) Pathologist [facility] WBC 13.46(H) 3.80 - 9.90 K/cumm Hgb 9.2(L) 11.9 - 15.5 g/dL [facility] Hct 28.1(L) 35.6 - 45.5 % [facility] Plt 172 150 - 400 K/cumm [facility] MPV 9.0(L) 9.1 - 12.3 fL [facility] RBC 3.11(L) 3.90 - 5.20 M/cumm [facility] MCV 90.4 81.3 - 96.4 fL [facility] MCH 29.6 27.1 - 33.3 pg [facility] MCHC 32.7 32.3 - 35.7 g/dL [facility] RDW CV 17.4(H) 11.1 - 14.9 % [facility] RDW SD 55.6(H) 35.7 - 48.1 fL [facility] NRBC abs 0.03(H) 0.00 - 0.01 K/cumm [facility] Blood 01/13/2025 8:48 PM CDT 01/13/2025 9:28 PM CDT Killian Dumont MD LAB BLOOD ORDERABLES Final Result Performing Organization Address City/[facility]/ZIP Co de Phone Number [facility] [place] [address] * (ABNORMAL) Phosphorus (01/13/2025 8:48 PM CDT) Phosphorus, pl 2.2(L) 2.3 - 4.5 mg/dL Blood 01/13/2025 8:48 PM CDT 01/13/2025 9:28 PM CDT Killian Dumont MD LAB BLOOD ORDERABLES Final Result [facility] [place] [place] [address] * (ABNORMAL) Magnesium (01/13/2025 8:48 PM CDT) Magnesium 2.6(H) 1.4 - 2.5 mg/dL Blood 01/13/2025 8:48 PM CDT 01/13/2025 9:28 PM CDT Killian Dumont MD LAB BLOOD ORDERABLES Final Result [facility] [place] [address] * (ABNORMAL) Comprehensive metabolic panel (01/13/2025 8:48 PM CDT) Sodium 136 135 - 145 mmol/L Potassium, pl 4.4 3.3 - 4.9 mmol/L [facility] Chloride 104 97 - 110 mmol/L [facility] CO2 27 22 - 32 mmol/L [facility] Anion gap 5 2 - 15 mmol/L [facility] BUN 35(H) 6 - 25 mg/dL [facility] Creatinine 1.48(H) 0.60 - 1.10 mg/dL [facility] Glucose 124 70 - 199 mg/dL [facility] Comment: Interpretive Data Fasting glucose >/= [...] 2022. Calcium 7.3(L) 8.5 - 10.3 mg/dL [facility] Bilirubin, total 0.4 0.1 - 1.2 mg/dL [facility] Protein, pl 5.8(L) 6.5 - 8.5 g/dL [facility] Albumin 2.9(L) 3.5 - 5.0 g/dL [facility] Alk phos 95 40 - 130 Units/L [facility] ALT 48(H) 7 - 45 Units/L [facility] AST 73(H) 10 - 45 Units/L [facility] Blood 01/13/2025 8:48 PM CDT 01/13/2025 9:28 PM CDT us Killian Dumont MD LAB BLOOD ORDERABLES Final Result Performing Organization Address City/[facility]/ZIP Co de Phone Number [facility] [employer] [place] [address] * POCT glucose (01/13/2025 8:36 PM CDT) Glucose, POC 135 70 - 199 mg/dL Blood 01/13/2025 8:36 PM CDT 01/13/2025 8:36 PM CDT Killian Dumont MD LAB POCT ORDERABLES - MATEUS CE Final Result Performing Organization Address [facility] Co de Phone Number [facility] [employer] [place] [address] * POCT glucose (01/13/2025 5:12 PM CDT) Glucose, POC 103 70 - 199 mg/dL Blood 01/13/2025 5:12 PM CDT 01/13/2025 5:12 PM CDT Killian Dumont MD LAB POCT ORDERABLES - MATEUS CE Final Result Performing Organization Address [facility] Co de Phone Number [facility] [place] [employer] [place] [address] * POCT glucose (01/13/2025 12:04 PM CDT) Glucose, POC 119 70 - 199 mg/dL Blood 01/13/2025 12:0 4 PM CDT 01/13/2025 12:04 PM CDT Killian Dumont MD LAB POCT ORDERABLES - MATEUS CE Final Result Performing Organization Address City/[facility] Co de Phone Number [facility] [place] [address] * POCT glucose (01/13/2025 7:39 AM CDT) Glucose, POC 174 70 - 199 mg/dL Blood 01/13/2025 7:39 AM CDT 01/13/2025 7:39 AM CDT Killian Dumont MD LAB POCT ORDERABLES - MATEUS CE Final Result Performing Organization Address [facility] de Phone Number [facility] [place] [employer] [place] [address] * POCT glucose (01/12/2025 8:00 PM CDT) Glucose, POC 171 70 - 199 mg/dL Blood 01/12/2025 8:00 PM CDT 01/12/2025 8:00 PM CDT Killian Dumont MD LAB POCT ORDERABLES - MATEUS CE Final Result Performing Organization Address [facility] de Phone Number [facility] [place] [employer] [place] [address] * (ABNORMAL) eGFR (01/12/2025 7:52 PM CDT) Pathologist [facility] eGFR 35(L) >=60 mL/min/1. 73 m2 Comment: [...] BLOOD ORDERABLES Final Result Performing Organization Address City/[facility]/ZIP Co de Phone Number [facility] [place] [employer] [place] [address] * (ABNORMAL) CBC without differential (01/12/2025 7:52 PM CDT) WBC 11.49(H) 3.80 - 9.90 K/cumm Hgb 9.0(L) 11.9 - 15.5 g/dL [facility] Hct 27.8(L) 35.6 - 45.5 % [facility] Plt 142(L) 150 - 400 K/cumm [facility] MPV 10.5 9.1 - 12.3 fL [facility] RBC 3.07(L) 3.90 - 5.20 M/cumm [facility] MCV 90.6 81.3 - 96.4 fL [facility] MCH 29.3 27.1 - 33.3 pg [facility] MCHC 32.4 32.3 - 35.7 g/dL [facility] RDW CV 17.1(H) 11.1 - 14.9 % [facility] RDW SD 55.0(H) 35.7 - 48.1 fL [facility] NRBC abs 0.03(H) 0.00 - 0.01 K/cumm [facility] Blood 01/12/2025 7:52 PM CDT 01/12/2025 8:32 PM CDT Killian Dumont MD LAB BLOOD ORDERABLES Final Result Performing Organization Address City/[facility]/ZIP Co de Phone Number [facility] [place] [place] [address] * Phosphorus (01/12/2025 7:52 PM CDT) [facility] Phosphorus, pl 2.6 2.3 - 4.5 mg/dL Blood 01/12/2025 7:52 PM CDT 01/12/2025 8:32 PM CDT Killian Dumont MD LAB BLOOD ORDERABLES Final Result [facility] [place] [address] * (ABNORMAL) Magnesium (01/12/2025 7:52 PM CDT) [facility] Magnesium 2.8(H) 1.4 - 2.5 mg/dL Blood 01/12/2025 7:52 PM CDT 01/12/2025 8:32 PM CDT Killian Dumont MD LAB BLOOD ORDERABLES Final Result Performing Organization Address City/[facility]/ZIP Co de Phone Number [facility] Department [place] [address] * (ABNORMAL) Comprehensive metabolic panel (01/12/2025 7:52 PM CDT) [facility] Sodium 137 135 - 145 mmol/L Potassium, pl 4.1 3.3 - 4.9 mmol/L [facility] Chloride 105 97 - 110 mmol/L [facility] CO2 25 22 - 32 mmol/L [facility] Anion gap 7 2 - 15 mmol/L [facility] BUN 42(H) 6 - 25 mg/dL [facility] Creatinine 1.59(H) 0.60 - 1.10 mg/dL [facility] Glucose 155 70 - 199 mg/dL [facility] Comment: Interpretive Data Fasting glucose >/= [...] Calcium 7.2(L) 8.5 - 10.3 mg/dL [facility] Bilirubin, total 0.3 0.1 - 1.2 mg/dL [facility] Protein, pl 5.3(L) 6.5 - 8.5 g/dL [facility] Albumin 2.6(L) 3.5 - 5.0 g/dL [facility] Alk phos 91 40 - 130 Units/L [facility] ALT 64(H) 7 - 45 Units/L [facility] AST 70(H) 10 - 45 Units/L [facility] Blood 01/12/2025 7:52 PM CDT 01/12/2025 8:32 PM CDT Killian Dumont MD LAB BLOOD ORDERABLES Final Result [facility] Department [place] [employer] [place] [address] * POCT glucose (01/12/2025 4:07 PM CDT) Glucose, POC 152 70 - 199 mg/dL Blood 01/12/2025 4:07 PM CDT 01/12/2025 4:07 PM CDT Killian Dumont MD LAB POCT ORDERABLES - MATEUS CE Final Result [facility] Department [place] [employer] [place] [place] [address] * POCT glucose (01/12/2025 12:13 PM CDT) Glucose, POC 162 70 - 199 mg/dL Blood 01/12/2025 12:1 3 PM CDT 01/12/2025 12:13 PM CDT us Killian Dumont MD LAB POCT ORDERABLES - MATEUS CE Final Result [facility] Department of Laboratories [place], [place] [id number] * US Vein Duplex Lower Extremity Bilateral Complete (01/12/2025 12:01 PM CDT) Anatomical Region Laterality Modality Vascular Bilateral Ultrasound 01/12/2025 10:2 3 AM CDT Narrative 01/12/2025 4:45 PM CDT [facility] - Department of Vascular Surgery, Vascular Laboratory [address] [place] [address] Lower Extremity Venous Ultrasound Report Patient Name: EVELYN GIL : 1955 (69y 11m) Study Date: 01/12/2025 10:23:13 AM Sex: F Tech: Location: [id number] Ref Provider: INGA RUSS Quality: Adequate Order Provider: INGA RUSS PROCEDURES: Vascular Report: Venous Duplex imaging was performed bilaterally in the lower extremities. The common femoral, femoral, popliteal, posterior tibial, peroneal veins were evaluated for patency, spontaneity and phasicity with Doppler, compression and augmentation maneuvers. Great saphenous vein proximal at the junction was evaluated with compression maneuvers. INDICATIONS: Pain swelling - FINDINGS: Performing Silk Screen Processor: Noble SOLORIO RVT. Right: Duplex scan reveals [...] lumbar, and sacral fusion and decompressive laminectomy ([id number]). Operative course complicated by acute blood loss [...] Procedure Note Bonilla Serrano MD - 01/12/2025 [facility] - Department of Vascular Surgery,Vascular Laboratory [address] [place] [address] Lower Extremity Venous Ultrasound Report Patient Name: EVELYN GIL : 1955 (69y 11m) Study Date: 01/12/2025 10:23:13 AM Sex: F Tech: Location: [id number] Ref Provider: INGA RUSS Quality: Adequate Order Provider: INGA RUSS PROCEDURES: Vascular Report: Venous Duplex imaging was performed bilaterally in the lower extremities.The common femoral, femoral, popliteal, posterior tibial, peroneal veins wereevaluated for patency, spontaneity and phasicity with Doppler, compression and augmentationmaneuvers. Great saphenous vein proximal at the junction was evaluated with compressionmaneuvers. INDICATIONS: Pain swelling - FINDINGS: Performing Silk Screen Processor: Noble SOLORIO RVT. Right: Duplex scan reveals [...] thoracic, lumbar, and sacral fusion and decompressive laminectomy([id number]). Operative course complicated by acute blood loss [...] above. Electronically Signed By: Bonilla Serrano MD [facility] 01/12/2025 4:04:55 PM CDT us Inga Russ ELECTROMECHANICAL TECHNICIAN IMG US PROCEDURES Final Result * POCT glucose (01/12/2025 8:37 AM CDT) [facility] Signature Glucose, POC 126 70 - 199 mg/dL Blood 01/12/2025 8:37 AM CDT 01/12/2025 8:37 AM CDT us Killian Dumont MD LAB POCT ORDERABLES - MATEUS CE Final Result [facility] [place] [address] * (ABNORMAL) eGFR (01/11/2025 9:44 PM CDT) [facility] eGFR 31(L) >=60 mL/min/1. 73 m2 Comment: [...] Dumont MD LAB BLOOD ORDERABLES Final Result [facility] [place] [address] * (ABNORMAL) CBC without differential (01/11/2025 9:44 PM CDT) [facility] WBC 10.05(H) 3.80 - 9.90 K/cumm Hgb 8.8(L) 11.9 - 15.5 g/dL [facility] Hct 27.2(L) 35.6 - 45.5 % [facility] Plt 103(L) 150 - 400 K/cumm [facility] MPV 9.9 9.1 - 12.3 fL [facility] RBC 3.01(L) 3.90 - 5.20 M/cumm [facility] MCV 90.4 81.3 - 96.4 fL [facility] MCH 29.2 27.1 - 33.3 pg [facility] MCHC 32.4 32.3 - 35.7 g/dL [facility] RDW CV 17.2(H) 11.1 - 14.9 % [facility] RDW SD 55.7(H) 35.7 - 48.1 fL [facility] NRBC abs 0.03(H) 0.00 - 0.01 K/cumm [facility] Blood 01/11/2025 9:44 PM CDT 01/11/2025 10:07 PM CDT Killian Dumont MD LAB BLOOD ORDERABLES Final Result Performing Organization Address City/[facility] Co de Phone Number [facility] [place] [employer] [place] [address] * T4, free (01/11/2025 9:44 PM CDT) Free T4 0.90 0.90 - 1.70 ng/dL Blood 01/11/2025 9:44 PM CDT 01/11/2025 10:06 PM CDT Killian Dumont MD LAB BLOOD ORDERABLES Final Result Performing Organization Address [facility] Co de Phone Number [facility] [place] [employer] [place] [address] * Phosphorus (01/11/2025 9:44 PM CDT) Phosphorus, pl 2.3 2.3 - 4.5 mg/dL Blood 01/11/2025 9:44 PM CDT 01/11/2025 10:06 PM CDT Killian Dumont MD LAB BLOOD ORDERABLES Final Result Performing Organization Address [facility] Co de Phone Number [facility] [place] [address] * (ABNORMAL) Magnesium (01/11/2025 9:44 PM CDT) Magnesium 2.7(H) 1.4 - 2.5 mg/dL Blood 01/11/2025 9:44 PM CDT 01/11/2025 10:06 PM CDT us Killian Dumont MD LAB BLOOD ORDERABLES Final Result [facility] [place] [address] * (ABNORMAL) Comprehensive metabolic panel (01/11/2025 9:44 PM CDT) Pathologist [facility] Sodium 138 135 - 145 mmol/L Potassium, pl 4.0 3.3 - 4.9 mmol/L [facility] Chloride 107 97 - 110 mmol/L [facility] CO2 26 22 - 32 mmol/L [facility] Anion gap 5 2 - 15 mmol/L [facility] BUN 52(H) 6 - 25 mg/dL [facility] Creatinine 1.73(H) 0.60 - 1.10 mg/dL [facility] Glucose 129 70 - 199 mg/dL [facility] Comment: Interpretive Data Fasting glucose >/= [...] 2022. Calcium 7.2(L) 8.5 - 10.3 mg/dL [facility] Bilirubin, total 0.4 0.1 - 1.2 mg/dL [facility] Protein, pl 5.5(L) 6.5 - 8.5 g/dL [facility] Albumin 2.7(L) 3.5 - 5.0 g/dL [facility] Alk phos 89 40 - 130 Units/L [facility] ALT 48(H) 7 - 45 Units/L [facility] AST 65(H) 10 - 45 Units/L [facility] Blood 01/11/2025 9:44 PM CDT 01/11/2025 10:06 PM CDT Killian Dumont MD LAB BLOOD ORDERABLES Final Result Performing Organization Address City/[facility]/ZIP Co de Phone Number [facility] [employer] [place] [address] * POCT glucose (01/11/2025 9:43 PM CDT) Glucose, POC 135 70 - 199 mg/dL Blood 01/11/2025 9:43 PM CDT 01/11/2025 9:43 PM CDT Killian Dumont MD LAB POCT ORDERABLES - MATEUS CE Final Result Performing Organization Address [facility] Co de Phone Number [facility] [employer] [place] [address] * POCT glucose (01/11/2025 5:10 PM CDT) Glucose, POC 134 70 - 199 mg/dL Blood 01/11/2025 5:10 PM CDT 01/11/2025 5:10 PM CDT Killian Dumont MD LAB POCT ORDERABLES - MATEUS CE Final Result Performing Organization Address City/[facility] Co de Phone Number [facility] [place] [employer] [place] [address] * POCT glucose (01/11/2025 12:39 PM CDT) Glucose, POC 161 70 - 199 mg/dL Blood 01/11/2025 12:3 9 PM CDT 01/11/2025 12:39 PM CDT us Killian Dumont MD LAB POCT ORDERABLES - MATEUS CE Final Result Performing Organization Address City/[facility] Co de Phone Number [facility] [place] [address] * HIV 1/2 Antibody plus p24 Antigen Blood (01/11/2025 12:30 PM CDT) Pathologist [facility] HIV 1/2 ab + p24 ag Nonreactive Nonreactive Comment:Nonreactive for HIV- 1 antigen and HIV-1/HIV-2 antibodies. No laboratory evidence of HIV infection. If acute HIV infection is suspected, consider testing for HIV-1 RNA. Current interpretive data was last revised on 22. Blood 01/11/2025 12:3 0 PM CDT 01/11/2025 1:05 PM CDT Julee Yoder NP LAB MICROBIOLOGY - G ENERAL ORDERABLES Final Result Performing Organization Address City/[facility] Co de Phone Number [facility] [place] [employer] [place] [address] * RPR Blood (01/11/2025 12:30 PM CDT) Pathologist [facility] RPR Nonreactive Nonreactive Blood 01/11/2025 12:3 0 PM CDT 01/11/2025 1:07 PM CDT Julee Yoder NP LAB MICROBIOLOGY - G ENERAL ORDERABLES Final Result Performing Organization Address City/[facility] Co de Phone Number [facility] [place] [employer] [place] [address] * (ABNORMAL) TSH (01/11/2025 12:30 PM CDT) Thyroid Stimulating Hormone 4.73(H) 0.30 - 4.20 mcIUnit/mL Blood 01/11/2025 12:3 0 PM CDT 01/11/2025 1:05 PM CDT Julee Yoder ELECTROMECHANICAL TECHNICIAN LAB BLOOD ORDERABLES Final Result Performing Organization Address [facility] Co de Phone Number [facility] [place] [place] [address] * Vitamin B12 (01/11/2025 12:30 PM CDT) [facility] Vitamin B12 971 230 - 1,250 pg/mL Blood 01/11/2025 12:3 0 PM CDT 01/11/2025 1:05 PM CDT Julee Yoder NP LAB BLOOD ORDERABLES Final Result Performing Organization Address [facility] de Phone Number [facility] [place] [place] [address] * POCT glucose (01/11/2025 7:14 AM CDT) [facility] Glucose, POC 186 70 - 199 mg/dL Blood 01/11/2025 7:14 AM CDT 01/11/2025 7:14 AM CDT Killian Dumont MD LAB POCT ORDERABLES - MATEUS CE Final Result Performing Organization Address [facility] de Phone Number [facility] [place] [employer] [place] [address] * (ABNORMAL) eGFR (01/10/2025 9:35 PM CDT) [facility] eGFR 28(L) >=60 mL/min/1. 73 m2 Comment: [...] Dumont MD LAB BLOOD ORDERABLES Final Result [facility] [place] [address] * (ABNORMAL) CBC without differential (01/10/2025 9:35 PM CDT) WBC 10.71(H) 3.80 - 9.90 K/cumm Hgb 8.9(L) 11.9 - 15.5 g/dL [facility] Hct 27.3(L) 35.6 - 45.5 % [facility] Plt 83(L) 150 - 400 K/cumm [facility] MPV 10.1 9.1 - 12.3 fL [facility] RBC 3.04(L) 3.90 - 5.20 M/cumm [facility] MCV 89.8 81.3 - 96.4 fL [facility] MCH 29.3 27.1 - 33.3 pg [facility] MCHC 32.6 32.3 - 35.7 g/dL [facility] RDW CV 17.5(H) 11.1 - 14.9 % [facility] RDW SD 56.6(H) 35.7 - 48.1 fL [facility] NRBC abs 0.02(H) 0.00 - 0.01 K/cumm [facility] Blood 01/10/2025 9:35 PM CDT 01/10/2025 10:05 PM CDT Killian Dumont MD LAB BLOOD ORDERABLES Final Result Performing Organization Address [facility] Co de Phone Number [facility] [place] [address] * Phosphorus (01/10/2025 9:35 PM CDT) [facility] Phosphorus, pl 3.1 2.3 - 4.5 mg/dL Blood 01/10/2025 9:35 PM CDT 01/10/2025 10:04 PM CDT Killian Dumont MD LAB BLOOD ORDERABLES Final Result Performing Organization Address [facility] Co de Phone Number [facility] [place] [address] * (ABNORMAL) Magnesium (01/10/2025 9:35 PM CDT) [facility] Magnesium 3.0(H) 1.4 - 2.5 mg/dL Blood 01/10/2025 9:35 PM CDT 01/10/2025 10:04 PM CDT Killian Dumont MD LAB BLOOD ORDERABLES Final Result Performing Organization Address [facility] Co de Phone Number [facility] [place] [address] * (ABNORMAL) Comprehensive metabolic panel (01/10/2025 9:35 PM CDT) [facility] Sodium 142 135 - 145 mmol/L Potassium, pl 4.5 3.3 - 4.9 mmol/L [facility] Chloride 109 97 - 110 mmol/L [facility] CO2 25 22 - 32 mmol/L [facility] Anion gap 8 2 - 15 mmol/L [facility] BUN 58(H) 6 - 25 mg/dL [facility] Creatinine 1.89(H) 0.60 - 1.10 mg/dL [facility] Glucose 118 70 - 199 mg/dL [facility] Comment: Interpretive Data Fasting glucose >/= [...] 2022. Calcium 7.5(L) 8.5 - 10.3 mg/dL [facility] Bilirubin, total 0.4 0.1 - 1.2 mg/dL [facility] Protein, pl 5.6(L) 6.5 - 8.5 g/dL [facility] Albumin 2.8(L) 3.5 - 5.0 g/dL [facility] Alk phos 85 40 - 130 Units/L [facility] ALT 65(H) 7 - 45 Units/L [facility] AST 96(H) 10 - 45 Units/L [facility] Blood 01/10/2025 9:35 PM CDT 01/10/2025 10:04 PM CDT Killian Dumont MD LAB BLOOD ORDERABLES Final Result [facility] [place] [address] * POCT glucose (01/10/2025 9:08 PM CDT) [facility] Signature Glucose, POC 124 70 - 199 mg/dL Blood 01/10/2025 9:08 PM CDT 01/10/2025 9:08 PM CDT Killian Dumont MD LAB POCT ORDERABLES - MATEUS CE Final Result Performing Organization Address [facility] [place] [address] * (ABNORMAL) Hemoglobin and hematocrit (01/10/2025 6:44 PM CDT) Hgb 8.8(L) 11.9 - 15.5 g/dL Hct 27.0(L) 35.6 - 45.5 % [facility] Blood 01/10/2025 6:44 PM CDT 01/10/2025 7:04 PM CDT Riley Reyes MD LAB BLOOD ORDERABLES Renee l Result Performing Organization Address [facility] [place] [address] * Transfuse RBC (01/10/2025 5:53 PM CDT) Blood Julee Yoder NP BLOOD TRANSFUSION OR DERABLES Edited Result - Final Performing Organization Address [facility] Co de Phone Number [facility] [place] [address] * POCT glucose (01/10/2025 3:59 PM CDT) Glucose, POC 139 70 - 199 mg/dL Blood 01/10/2025 3:59 PM CDT 01/10/2025 3:59 PM CDT Killian Dumont MD LAB POCT ORDERABLES - MATEUS CE Final Result Performing Organization Address [facility] Co de Phone Number [facility] [place], [place] [id number] * (ABNORMAL) Urinalysis reflex to microscopic and culture Urine (01/10/2025 12:45 PM CDT) Color, ur Yellow Yellow Clarity, ur Cloudy(A) Clear [facility] Specific gravity, ur 1.021 1.003 - 1.030 [facility] pH, urine 5.5 [facility] Comment: Interpretive Data U rine pH is affected by diet, medications, systemic acid-base disturbances, and renal tubular function. pH may affect urinary stone formation. For example, urine pH below 6.0 may help reduce the tendency for calcium phosphate stones and pH greater than 6.0 may reduce the tendency for uric acid stone formation. Source: [facility] Current Interpretive Data was last revised on 2017 Protein, ur ql 1+(A) Negative [facility] Glucose, ur ql Negative Negative [facility] Ketones, ur Negative Negative [facility] Bilirubin, ur Negative Negative [facility] Blood, ur 3+(A) Negative [facility] Urobilinogen, ur <2.0 <2.0 mg/dL [facility] Nitrite, ur Negative Negative [facility] Leukocyte esterase, ur Negative Negative [facility] UA reflex comment Reflex to microscopic UA will be performed. [facility] Urine 01/10/2025 12:4 5 PM CDT 01/10/2025 1:01 PM CDT Killian Dumont MD LAB MICROBIOLOGY - GENERAL ORDERABLES Final Result Performing Organization Address City/State/[facility] Co de Phone Number [facility] [place] [address] * Urea nitrogen, urine, random (01/10/2025 12:45 PM CDT) Urea nitrogen, ur 835 mg/dL Comment: Interpretive Data No reference range established. Current interpretive data was last revised 2018. Urine 01/10/2025 12:4 5 PM CDT 01/10/2025 1:05 PM CDT Killian Dumont MD LAB URINE ORDERABLES Final Result Performing Organization Address City/[facility] de Phone Number [facility] [place] [address] * (ABNORMAL) Albumin Creatinine Ratio, Urine (01/10/2025 12:45 PM CDT) Albumin Ur 48.0 mg/L Comment: Interpretive Data No reference range established. Current interpretive data was last revised 2018. Creatinine Ur 112.3 mg/dL [facility] Comment: Interpretive Data No reference range established. Current interpretive data was last revised 2018. Albumin Creatinine Ratio, Ur 43(H) 1 - 29 mg/g [facility] Urine 01/10/2025 12:4 5 PM CDT 01/10/2025 1:01 PM CDT Killian Dumont MD LAB URINE ORDERABLES Final Result Performing Organization Address [facility] de Phone Number [facility] [place] [address] * Sodium, urine, random (01/10/2025 12:45 PM CDT) Pathologist [facility] Sodium, ur 56 mmol/L Comment: Interpretive Data No reference range established. Current interpretive data was last revised 2018. Urine 01/10/2025 12:4 5 PM CDT 01/10/2025 1:05 PM CDT Killian Dumont MD LAB URINE ORDERABLES Final Result Performing Organization Address [facility] [place] [address] * (ABNORMAL) Urinalysis, microscopic only (01/10/2025 12:45 PM CDT) WBC, ur 11-20(A) 0 - 5 /HPF RBC, ur >50(A) 0 - 2 /HPF [facility] Epithelial cells, squamous, ur 1-5 0 - 5 /HPF [facility] Bacteria, ur 3+(A) [facility] Mucous, ur Present(A) [facility] Uric acid crystals, ur 1+(A) [facility] Granular casts, ur 11-20(A) 0 - 0 /LPF [facility] Culture Reflex Comment Reflex to urine culture will be performed. [facility] Urine 01/10/2025 12:4 5 PM CDT 01/10/2025 1:01 PM CDT Killian Dumont MD LAB URINE ORDERABLES Final Result Performing Organization Address [facility] Co de Phone Number [facility] [place] [address] * Urine culture Urine (01/10/2025 12:45 PM CDT) Report Final Report: No growth Urine 01/10/2025 12:4 5 PM CDT 01/10/2025 4:46 PM CDT Narrative [facility] - 01/11/2025 5:35 PM CDT Urine culture reflexed based upon urinalysis results. Testing performed by [facility] ([phone]) Killian Dumont MD LAB MICROBIOLOGY - GENERAL ORDERABLES Final Result Performing Organization Address [facility] de Phone Number [facility] [place] [address] * POCT glucose (01/10/2025 11:35 AM CDT) Glucose, POC 141 70 - 199 mg/dL Blood 01/10/2025 11:3 5 AM CDT 01/10/2025 11:35 AM CDT Killian Dumont MD LAB POCT ORDERABLES - MATEUS CE Final Result Performing Organization Address [facility]/ZIP Co de Phone Number [facility] [place] [address] * Type and screen (01/10/2025 11:34 AM CDT) Pathologist [facility] ABO Rh O Positive Maribell, indirect Negative [facility] Blood 01/10/2025 11:3 4 AM CDT 01/10/2025 11:53 AM CDT Narrative [facility] - 01/10/2025 12:49 PM CDT Has the patient had Daratumumab or Isatuximab in the past 6 months?->Unknown Julee Yoder NP LAB BLOOD BANK TEST ORDERABLES Final Result Performing Organization Address [facility] Co de Phone Number [facility] [place] [address] * Prepare RBC: 1 Units (01/10/2025 10:24 AM CDT) [facility] Product code [id number] Unit Number [id number] [facility] Product Blood Type OPOS [facility] Dispense Status PRESUMED TRANSFUSED [facility] Blood 01/10/2025 10:2 4 AM CDT 01/10/2025 10:24 AM CDT Narrative [facility] - 01/11/2025 4:00 AM CDT Are special requirements needed? (All products are leukoreduced and CMV- safe)- >No Date required:-[id number] LRRBC # of [id number] Reasons:-Cardiovascular disease, Hgb <8 g/dL} Julee Yoder NP BLOOD BANK PRODUCT O RDERABLES Final Result Performing Organization Address [facility]/ZIP Co de Phone Number [facility] [place] [address] * POCT glucose (01/10/2025 7:19 AM CDT) [facility] Glucose, POC 152 70 - 199 mg/dL Blood 01/10/2025 7:19 AM CDT 01/10/2025 7:19 AM CDT us Killian Dumont MD LAB POCT ORDERABLES - MATEUS CE Final Result Performing Organization Address [facility] Co de Phone Number [facility] [place] [employer] [place] [place] [address] * (ABNORMAL) eGFR (01/10/2025 6:13 AM CDT) eGFR 29(L) >=60 mL/min/1. 73 [...] ORDERABLES Final Res ult Performing Organization Address City/[facility]/ZIP Co de Phone Number [facility] [place] [address] * (ABNORMAL) aPTT (01/10/2025 6:13 AM CDT) aPTT 24(L) 26 - 38 sec Comment: Interpretive Data Heparin therapeutic range: 66.0 - 100.0 seconds. Range based on correlation with therapeutic heparin activity range of 0.3 - 0.7 Units/mL. Current interpretive data was last revised on 2023. Blood 01/10/2025 6:13 AM CDT 01/10/2025 7:00 AM CDT Rosalva Polanco NP LAB BLOOD ORDERABLES Final Res ult Performing Organization Address [facility] de Phone Number [facility] [place] [place] [address] * Protime-INR (01/10/2025 6:13 AM CDT) PT 11.9 10.2 - 13.5 sec INR 1.05 0.90 - 1.20 [facility] Comment: Interpretive data Oral anticoagulant therapeutic ranges: Venous thromboembolism prophylaxis or treatment: 2.0-3.0 CARDIOLOGY Standard range: 2.0-3.0 High-intensity range: 2.5-3.5 Refer to indication-specific guidelines for appropriate target ranges for prosthetic heart valve replacement. Current interpretive data was last revised on 2019. Blood 01/10/2025 6:13 AM CDT 01/10/2025 7:00 AM CDT Rosalva Polanco NP LAB BLOOD ORDERABLES Final Res ult Performing Organization Address [facility] de Phone Number [facility] [place] [place] [address] * (ABNORMAL) CBC without differential (01/10/2025 6:13 AM CDT) WBC 11.87(H) 3.80 - 9.90 K/cumm Hgb 7.5(L) 11.9 - 15.5 g/dL [facility] Hct 22.6(L) 35.6 - 45.5 % [facility] Plt 81(L) 150 - 400 K/cumm [facility] MPV 11.1 9.1 - 12.3 fL [facility] RBC 2.55(L) 3.90 - 5.20 M/cumm [facility] MCV 88.6 81.3 - 96.4 fL [facility] MCH 29.4 27.1 - 33.3 pg [facility] MCHC 33.2 32.3 - 35.7 g/dL [facility] RDW CV 18.2(H) 11.1 - 14.9 % [facility] RDW SD 58.3(H) 35.7 - 48.1 fL [facility] NRBC abs 0.03(H) 0.00 - 0.01 K/cumm [facility] Blood 01/10/2025 6:13 AM CDT 01/10/2025 6:37 AM CDT us Rosalva Polanco NP LAB BLOOD ORDERABLES Final Res ult [facility] [place] [address] * (ABNORMAL) Basic metabolic panel (01/10/2025 6:13 AM CDT) Sodium 142 135 - 145 mmol/L Potassium, pl 4.1 3.3 - 4.9 mmol/L [facility] Chloride 110 97 - 110 mmol/L [facility] CO2 27 22 - 32 mmol/L [facility] Anion gap 5 2 - 15 mmol/L [facility] BUN 60(H) 6 - 25 mg/dL [facility] Creatinine 1.84(H) 0.60 - 1.10 mg/dL [facility] Glucose 194 70 - 199 mg/dL [facility] Comment: Interpretive Data Fasting glucose >/= [...] 2022. Calcium 7.4(L) 8.5 - 10.3 mg/dL [facility] Blood 01/10/2025 6:13 AM CDT 01/10/2025 6:37 AM CDT us Rosalva Polanco NP LAB BLOOD ORDERABLES Final Res ult Performing Organization Address City/[facility]/ZIP Co de Phone Number [facility] [place] [address] * POCT glucose (01/09/2025 9:10 PM CDT) Glucose, POC 183 70 - 199 mg/dL Blood 01/09/2025 9:10 PM CDT 01/09/2025 9:10 PM CDT us Killian Dumont MD LAB POCT ORDERABLES - MATEUS CE Final Result Performing Organization Address [facility] Co de Phone Number [facility] Department [place] [place] [address] * (ABNORMAL) eGFR (01/09/2025 8:45 PM CDT) [...] CDT 01/09/2025 9:05 PM CDT Haylee Barrera ELECTROMECHANICAL TECHNICIAN LAB BLOOD ORDERABL ES Final Result Performing Organization Address [facility] Co de Phone Number [facility] [place] [place] [address] * (ABNORMAL) aPTT (01/09/2025 8:45 PM CDT) aPTT 23(L) 26 - 38 sec Comment: Interpretive Data Heparin therapeutic range: 66.0 - 100.0 seconds. Range based on correlation with therapeutic heparin activity range of 0.3 - 0.7 Units/mL. Current interpretive data was last revised on 2023. Blood 01/09/2025 8:45 PM CDT 01/09/2025 9:05 PM CDT us Rosalva Polanco ELECTROMECHANICAL TECHNICIAN LAB BLOOD ORDERABLES Final Res ult Performing Organization Address [facility] Co de Phone Number [facility] [place] [employer] [place] [address] * Protime-INR (01/09/2025 8:45 PM CDT) PT 11.0 10.2 - 13.5 sec INR 0.97 0.90 - 1.20 [facility] Comment: Interpretive data Oral anticoagulant therapeutic [...] ORDERABLES Final Res ult Performing Organization Address [facility] Co de Phone Number [facility] [place] [address] * (ABNORMAL) CBC without differential (01/09/2025 8:45 PM CDT) WBC 14.43(H) 3.80 - 9.90 K/cumm Hgb 8.5(L) 11.9 - 15.5 g/dL [facility] Hct 26.0(L) 35.6 - 45.5 % [facility] Plt 85(L) 150 - 400 K/cumm [facility] MPV 11.5 9.1 - 12.3 fL [facility] RBC 2.97(L) 3.90 - 5.20 M/cumm [facility] MCV 87.5 81.3 - 96.4 fL [facility] MCH 28.6 27.1 - 33.3 pg [facility] MCHC 32.7 32.3 - 35.7 g/dL [facility] RDW CV 18.1(H) 11.1 - 14.9 % [facility] RDW SD 57.9(H) 35.7 - 48.1 fL [facility] NRBC abs 0.03(H) 0.00 - 0.01 K/cumm [facility] Blood 01/09/2025 8:45 PM CDT 01/09/2025 9:05 PM CDT us Killian Dumont MD LAB BLOOD ORDERABLES Final Result Performing Organization Address City/[facility]/ZIP Co de Phone Number [facility] [place] [address] * Phosphorus (01/09/2025 8:45 PM CDT) Phosphorus, pl 3.8 2.3 - 4.5 mg/dL Blood 01/09/2025 8:45 PM CDT 01/09/2025 9:05 PM CDT Killian Dumont MD LAB BLOOD ORDERABLES Final Result Performing Organization Address City/[facility]/ZIP Co de Phone Number [facility] Department [place] [address] * (ABNORMAL) Magnesium (01/09/2025 8:45 PM CDT) [facility] Magnesium 3.2(H) 1.4 - 2.5 mg/dL Blood 01/09/2025 8:45 PM CDT 01/09/2025 9:05 PM CDT Killian Dumont MD LAB BLOOD ORDERABLES Final Result Performing Organization Address [facility] de Phone Number [facility] Department [place] [address] * (ABNORMAL) Comprehensive metabolic panel (01/09/2025 8:45 PM CDT) [facility] Sodium 142 135 - 145 mmol/L Potassium, pl 4.3 3.3 - 4.9 mmol/L [facility] Chloride 108 97 - 110 mmol/L [facility] CO2 25 22 - 32 mmol/L [facility] Anion gap 9 2 - 15 mmol/L [facility] BUN 63(H) 6 - 25 mg/dL [facility] Creatinine 1.97(H) 0.60 - 1.10 mg/dL [facility] Glucose 172 70 - 199 mg/dL [facility] Comment: Interpretive Data Fasting glucose >/= [...] Calcium 8.1(L) 8.5 - 10.3 mg/dL [facility] Bilirubin, total 0.4 0.1 - 1.2 mg/dL [facility] Protein, pl 5.8(L) 6.5 - 8.5 g/dL [facility] Albumin 3.1(L) 3.5 - 5.0 g/dL [facility] Alk phos 86 40 - 130 Units/L [facility] ALT 113(H) 7 - 45 Units/L [facility] AST 205(H) 10 - 45 Units/L [facility] Blood 01/09/2025 8:45 PM CDT 01/09/2025 9:05 PM CDT Killian Dumont MD LAB BLOOD ORDERABLES Final Result [facility] Department [place] [employer] [place] [address] * POCT glucose (01/09/2025 6:05 PM CDT) Glucose, POC 155 70 - 199 mg/dL Blood 01/09/2025 6:05 PM CDT 01/09/2025 6:05 PM CDT Killian Dumont MD LAB POCT ORDERABLES - MATEUS CE Final Result [facility] [place] [employer] [place] [address] * POCT glucose (01/09/2025 3:28 PM CDT) Glucose, POC 149 70 - 199 mg/dL Blood 01/09/2025 3:28 PM CDT 01/09/2025 3:28 PM CDT Killian Dumont MD LAB POCT ORDERABLES - MATEUS CE Final Result Performing Organization Address [facility] Co de Phone Number [facility] [place] [address] * (ABNORMAL) POCT glucose (01/09/2025 11:13 AM CDT) Glucose, POC 200(H) 70 - 199 mg/dL Comment:Glu2: RN/MD Notified Glucose comment 1 Glu2: RN/MD Notified [facility] Blood 01/09/2025 11:1 3 AM CDT 01/09/2025 11:13 AM CDT Killian Dumont MD LAB POCT ORDERABLES - MATEUS CE Final Result Performing Organization Address [facility] Co de Phone Number [facility] [place] [address] * Critical Care (01/09/2025 10:08 AM CDT) Narrative Demi Blackman MD - 01/09/2025 10:08 AM CDT Demi Blackman MD 01/09/2025 11:14 AM Critical Care [...] plan with the ICU team and other medical/application support consultant staff, making frequent assessments and decisions [...] 7:14 AM CDT 01/09/2025 7:14 AM CDT us Killian Dumont MD LAB POCT ORDERABLES - MATEUS CE Final Result Performing Organization Address [facility] Co de Phone Number [facility] Department [place] [employer] [place] [address] * POCT glucose (01/09/2025 3:15 AM CDT) Glucose, POC 193 70 - 199 mg/dL Blood 01/09/2025 3:15 AM CDT 01/09/2025 3:15 AM CDT us Killian Dumont MD LAB POCT ORDERABLES - MATEUS CE Final Result Performing Organization Address [facility] Co de Phone Number [facility] Department [place] [employer] [place] [address] * (ABNORMAL) POCT glucose (01/08/2025 11:16 PM CDT) Glucose, POC 227(H) 70 - 199 mg/dL Comment:Glu2: RN/MD Notified Glucose comment 1 Glu2: RN/MD Notified [facility] Blood 01/08/2025 11:1 6 PM CDT 01/08/2025 11:16 PM CDT Killian Dumont MD LAB POCT ORDERABLES - MATEUS CE Final Result Performing Organization Address [facility] de Phone Number [facility] Department [place] [employer] [place] [address] * POCT glucose (01/08/2025 10:14 PM CDT) Glucose, POC 171 70 - 199 mg/dL Blood 01/08/2025 10:1 4 PM CDT 01/08/2025 10:14 PM CDT Killian Dumont MD LAB POCT ORDERABLES - MATEUS CE Final Result Performing Organization Address [facility] de Phone Number [facility] [employer] [place] [address] * Critical Care (01/08/2025 10:00 PM CDT) [...] plan with the ICU team and other medical/application support consultant staff, making frequent assessments and decisions [...] (ABNORMAL) eGFR (01/08/2025 9:17 PM CDT) Pathologist [facility] eGFR 24(L) >=60 mL/min/1. 73 m2 Comment: [...] LAB BLOOD ORDERABL ES Final Result [facility] [place] [address] * (ABNORMAL) CBC without differential (01/08/2025 9:17 PM CDT) Pathologist [facility] WBC 15.66(H) 3.80 - 9.90 K/cumm Hgb 9.3(L) 11.9 - 15.5 g/dL [facility] Hct 27.9(L) 35.6 - 45.5 % [facility] Plt 65(L) 150 - 400 K/cumm [facility] MPV 11.4 9.1 - 12.3 fL [facility] RBC 3.27(L) 3.90 - 5.20 M/cumm [facility] MCV 85.3 81.3 - 96.4 fL [facility] MCH 28.4 27.1 - 33.3 pg [facility] MCHC 33.3 32.3 - 35.7 g/dL [facility] RDW CV 17.8(H) 11.1 - 14.9 % [facility] RDW SD 55.3(H) 35.7 - 48.1 fL [facility] NRBC abs 0.03(H) 0.00 - 0.01 K/cumm [facility] Blood 01/08/2025 9:17 PM CDT 01/08/2025 10:44 PM CDT Killian Dumont MD LAB BLOOD ORDERABLES Final Result Performing Organization Address City/[facility]/ZIP Co de Phone Number [facility] Department [place] [address] * Phosphorus (01/08/2025 9:17 PM CDT) Pathologist [facility] Phosphorus, pl 4.1 2.3 - 4.5 mg/dL Blood 01/08/2025 9:17 PM CDT 01/08/2025 10:39 PM CDT Killian Dumont MD LAB BLOOD ORDERABLES Final Result [facility] Department [place] [address] * (ABNORMAL) Magnesium (01/08/2025 9:17 PM CDT) Magnesium 2.9(H) 1.4 - 2.5 mg/dL Blood 01/08/2025 9:17 PM CDT 01/08/2025 10:39 PM CDT Killian Dumont MD LAB BLOOD ORDERABLES Final Result [facility] [place] [address] * (ABNORMAL) Comprehensive metabolic panel (01/08/2025 9:17 PM CDT) Pathologist [facility] Sodium 145 135 - 145 mmol/L Potassium, pl 4.4 3.3 - 4.9 mmol/L [facility] Chloride 111(H) 97 - 110 mmol/L [facility] CO2 23 22 - 32 mmol/L [facility] Anion gap 11 2 - 15 mmol/L [facility] BUN 52(H) 6 - 25 mg/dL [facility] Creatinine 2.18(H) 0.60 - 1.10 mg/dL [facility] Glucose 177 70 - 199 mg/dL [facility] Comment: Interpretive Data Fasting glucose >/= [...] 2022. Calcium 8.3(L) 8.5 - 10.3 mg/dL [facility] Bilirubin, total 0.5 0.1 - 1.2 mg/dL [facility] Protein, pl 5.7(L) 6.5 - 8.5 g/dL [facility] Albumin 3.1(L) 3.5 - 5.0 g/dL [facility] Alk phos 83 40 - 130 Units/L [facility] ALT 196(H) 7 - 45 Units/L [facility] AST 434(H) 10 - 45 Units/L [facility] Blood 01/08/2025 9:17 PM CDT 01/08/2025 10:39 PM CDT Killian Dumont MD LAB BLOOD ORDERABLES Final Result [facility] [place] [address] * Critical Care (01/08/2025 5:56 PM CDT) [...] plan with the ICU team and other medical/application support consultant staff, making frequent assessments and decisions [...] URINE ORDERABLES Final Result Performing Organization Address City/[facility] Co de Phone Number [facility] [place] [address] * Creatinine, urine, random (01/08/2025 4:31 PM CDT) Creatinine Ur 97.3 mg/dL Comment: Interpretive Data No reference range established. Current interpretive data was last revised 2018. Urine 01/08/2025 4:31 PM CDT 01/08/2025 4:50 PM CDT Killian Dumont MD LAB URINE ORDERABLES Final Result [facility] [place] [place] [address] * POCT glucose (01/08/2025 3:12 PM CDT) Glucose, POC 126 70 - 199 mg/dL Blood 01/08/2025 3:12 PM CDT 01/08/2025 3:12 PM CDT Killian Dumont MD LAB POCT ORDERABLES - MATEUS CE Final Result Performing Organization Address [facility] Co de Phone Number [facility] [employer] [place] [address] * (ABNORMAL) Hemoglobin and hematocrit (01/08/2025 1:05 PM CDT) Hgb 8.8(L) 11.9 - 15.5 g/dL Hct 25.8(L) 35.6 - 45.5 % [facility] Blood 01/08/2025 1:05 PM CDT 01/08/2025 1:13 PM CDT Killian Dumont MD LAB BLOOD ORDERABLES Final Result Performing Organization Address [facility] de Phone Number [facility] [place] [place] [address] * Calcium, ionized (01/08/2025 1:02 PM CDT) Calcium, Ionized 4.51 4.50 - 5.10 mg/dL Blood 01/08/2025 1:02 PM CDT 01/08/2025 1:13 PM CDT Killian Dumont MD LAB BLOOD ORDERABLES Final Result Performing Organization Address [facility] Co de Phone Number [facility] [place] [place] [address] * Transfuse RBC (01/08/2025 11:41 AM CDT) Blood Killian Dumont MD BLOOD TRANSFUSION ORDERABL ES Final Result Performing Organization Address [facility] Co de Phone Number [facility] [place] [place] [address] * POCT glucose (01/08/2025 11:12 AM CDT) Glucose, POC 125 70 - 199 mg/dL Blood 01/08/2025 11:1 2 AM CDT 01/08/2025 11:12 AM CDT Killian Dumont MD LAB POCT ORDERABLES - MATEUS CE Final Result Performing Organization Address [facility] Co de Phone Number [facility] [place] [place] [address] * POCT glucose (01/08/2025 7:52 AM CDT) Glucose, POC 133 70 - 199 mg/dL Blood 01/08/2025 7:52 AM CDT 01/08/2025 7:52 AM CDT Killian Dumont MD LAB POCT ORDERABLES - MATEUS CE Final Result Performing Organization Address [facility] de Phone Number [facility] [place] [place] [address] * (ABNORMAL) aPTT (01/08/2025 5:59 AM CDT) [...] BLOOD ORDERABLES Final Result Performing Organization Address [facility] Co de Phone Number [facility] [place] [place] [address] * Protime-INR (01/08/2025 5:59 AM CDT) PT 11.4 10.2 - 13.5 sec INR 1.01 0.90 - 1.20 [facility] Comment: Interpretive data Oral anticoagulant therapeutic ranges: Venous thromboembolism prophylaxis or treatment: 2.0-3.0 CARDIOLOGY Standard range: 2.0-3.0 High-intensity range: 2.5-3.5 Refer to indication-specific guidelines for appropriate target ranges for prosthetic heart valve replacement. Current interpretive data was last revised on 2019. Blood 01/08/2025 5:59 AM CDT 01/08/2025 6:55 AM CDT Killian Dumont MD LAB BLOOD ORDERABLES Final Result [facility] [place] [address] * (ABNORMAL) eGFR (01/08/2025 5:04 AM CDT) [...] BLOOD ORDERABLES Final Result Performing Organization Address City/[facility]/ZIP Co de Phone Number [facility] [place] [address] * (ABNORMAL) CBC without differential (01/08/2025 5:04 AM CDT) Pathologist [facility] WBC 12.59(H) 3.80 - 9.90 K/cumm Hgb 7.8(L) 11.9 - 15.5 g/dL [facility] Hct 23.1(L) 35.6 - 45.5 % [facility] Plt 60(L) 150 - 400 K/cumm [facility] MPV 11.1 9.1 - 12.3 fL [facility] RBC 2.73(L) 3.90 - 5.20 M/cumm [facility] MCV 84.6 81.3 - 96.4 fL [facility] MCH 28.6 27.1 - 33.3 pg [facility] MCHC 33.8 32.3 - 35.7 g/dL [facility] RDW CV 18.5(H) 11.1 - 14.9 % [facility] RDW SD 56.6(H) 35.7 - 48.1 fL [facility] NRBC abs 0.02(H) 0.00 - 0.01 K/cumm [facility] Blood 01/08/2025 5:04 AM CDT 01/08/2025 5:32 AM CDT Killian Dumont MD LAB BLOOD ORDERABLES Final Result [facility] [place] [address] * (ABNORMAL) Basic metabolic panel (01/08/2025 5:04 AM CDT) Pathologist [facility] Sodium 142 135 - 145 mmol/L Potassium, pl 4.0 3.3 - 4.9 mmol/L [facility] Chloride 110 97 - 110 mmol/L [facility] CO2 25 22 - 32 mmol/L [facility] Anion gap 7 2 - 15 mmol/L [facility] BUN 51(H) 6 - 25 mg/dL [facility] Creatinine 2.48(H) 0.60 - 1.10 mg/dL [facility] Glucose 146 70 - 199 mg/dL [facility] Comment: Interpretive Data Fasting glucose >/= [...] 2022. Calcium 8.0(L) 8.5 - 10.3 mg/dL [facility] Blood 01/08/2025 5:04 AM CDT 01/08/2025 5:32 AM CDT Killian Dumont MD LAB BLOOD ORDERABLES Final Result Performing Organization Address City/[facility] Co de Phone Number [facility] Department [place] [employer] [place] [place] [address] * POCT glucose (01/08/2025 3:14 AM CDT) [facility] Glucose, POC 147 70 - 199 mg/dL Blood 01/08/2025 3:14 AM CDT 01/08/2025 3:14 AM CDT Killian Dumont MD LAB POCT ORDERABLES - MATEUS CE Final Result Performing Organization Address [facility] Co de Phone Number [facility] [place] [address] * Transfuse RBC (01/08/2025 2:50 AM CDT) Blood us Killian Dumont MD BLOOD TRANSFUSION ORDERABL ES Final Result [facility] [place] [address] * Prepare RBC: 1 Units (01/08/2025 12:29 AM CDT) Product code [id number] Unit Number [id number] [facility] Product Blood Type OPOS [facility] Dispense Status PRESUMED TRANSFUSED [facility] Blood 01/08/2025 12:2 9 AM CDT 01/08/2025 12:31 AM CDT Narrative [facility] - 01/09/2025 12:55 AM CDT Are special requirements needed? (All products are leukoreduced and CMV- safe)- >No Date required:-[id number] LRRBC # of [id number] Reasons:-Cardiovascular disease, Hgb <8 g/dL} us Killian Dumont MD BLOOD BANK PRODUCT ORDERAB LES Final Result Performing Organization Address City/[facility] Co de Phone Number [facility] [place] [address] * Prepare RBC: 1 Units (01/08/2025 12:16 AM CDT) Product code [id number] Unit Number [id number] [facility] Product Blood Type OPOS [facility] Dispense Status PRESUMED TRANSFUSED [facility] Blood 01/08/2025 12:1 6 AM CDT 01/08/2025 12:16 AM CDT Narrative [facility] - 01/08/2025 4:00 PM CDT Are special requirements needed? (All products are leukoreduced and CMV- safe)- >No Date required:-[id number] LRRBC # of Totes-[id number] Reasons:-Active bleeding, Hgb <8 g/dL} us Killian Dumont MD BLOOD BANK PRODUCT ORDERAB LES Final Result Performing Organization Address City/[facility] Co de Phone Number [facility] [place] [address] * POCT glucose (01/07/2025 11:37 PM CDT) Glucose, POC 132 70 - 199 mg/dL Blood 01/07/2025 11:3 7 PM CDT 01/07/2025 11:37 PM CDT us Killian Dumont MD LAB POCT ORDERABLES - MATEUS CE Final Result Performing Organization Address [facility] Co de Phone Number [facility] [place] [address] * Critical Care (01/07/2025 10:50 PM CDT) [...] plan with the ICU team and other medical/application support consultant staff, making frequent assessments and decisions [...] 01/07/2025 8:34 PM CDT us Haylee Barrera ELECTROMECHANICAL TECHNICIAN LAB BLOOD ORDERABL ES Final Result [facility] [place] [address] * (ABNORMAL) CBC without differential (01/07/2025 8:05 PM CDT) WBC 12.68(H) 3.80 - 9.90 K/cumm Hgb 7.2(L) 11.9 - 15.5 g/dL [facility] Hct 21.7(L) 35.6 - 45.5 % [facility] Plt 67(L) 150 - 400 K/cumm [facility] MPV 12.0 9.1 - 12.3 fL [facility] RBC 2.52(L) 3.90 - 5.20 M/cumm [facility] MCV 86.1 81.3 - 96.4 fL [facility] MCH 28.6 27.1 - 33.3 pg [facility] MCHC 33.2 32.3 - 35.7 g/dL [facility] RDW CV 19.0(H) 11.1 - 14.9 % [facility] RDW SD 59.1(H) 35.7 - 48.1 fL [facility] NRBC abs 0.02(H) 0.00 - 0.01 K/cumm [facility] Blood 01/07/2025 8:05 PM CDT 01/07/2025 8:35 PM CDT Killian Dumont MD LAB BLOOD ORDERABLES Final Result [facility] [place] [address] * (ABNORMAL) Phosphorus (01/07/2025 8:05 PM CDT) Pathologist [facility] Phosphorus, pl 5.3(H) 2.3 - 4.5 mg/dL Blood 01/07/2025 8:05 PM CDT 01/07/2025 8:34 PM CDT Killian Dumont MD LAB BLOOD ORDERABLES Final Result [facility] [place] [address] * (ABNORMAL) Magnesium (01/07/2025 8:05 PM CDT) Magnesium 2.8(H) 1.4 - 2.5 mg/dL Blood 01/07/2025 8:05 PM CDT 01/07/2025 8:34 PM CDT Killian Dumont MD LAB BLOOD ORDERABLES Final Result [facility] [place] [address] * (ABNORMAL) Comprehensive metabolic panel (01/07/2025 8:05 PM CDT) Sodium 145 135 - 145 mmol/L Potassium, pl 4.2 3.3 - 4.9 mmol/L [facility] Chloride 111(H) 97 - 110 mmol/L [facility] CO2 24 22 - 32 mmol/L [facility] Anion gap 10 2 - 15 mmol/L [facility] BUN 47(H) 6 - 25 mg/dL [facility] Creatinine 2.34(H) 0.60 - 1.10 mg/dL [facility] Glucose 142 70 - 199 mg/dL [facility] Comment: Interpretive Data Fasting glucose >/= [...] 2022. Calcium 7.8(L) 8.5 - 10.3 mg/dL [facility] Bilirubin, total 0.2 0.1 - 1.2 mg/dL [facility] Protein, pl 4.9(L) 6.5 - 8.5 g/dL [facility] Albumin 3.0(L) 3.5 - 5.0 g/dL [facility] Alk phos 63 40 - 130 Units/L [facility] ALT 441(H) 7 - 45 Units/L [facility] AST 794(H) 10 - 45 Units/L [facility] Blood 01/07/2025 8:05 PM CDT 01/07/2025 8:34 PM CDT us Killian Dumont MD LAB BLOOD ORDERABLES Final Result Performing Organization Address [facility] Co de Phone Number [facility] [place] [address] * POCT glucose (01/07/2025 7:20 PM CDT) [facility] Glucose, POC 141 70 - 199 mg/dL Blood 01/07/2025 7:20 PM CDT 01/07/2025 7:20 PM CDT Killian Dumont MD LAB POCT ORDERABLES - MATEUS CE Final Result Performing Organization Address [facility] de Phone Number [facility] [place] [address] * X-ray chest 1 view (01/07/2025 4:36 [...] * POCT glucose (01/07/2025 3:48 PM CDT) [facility] Glucose, POC 163 70 - 199 mg/dL Blood 01/07/2025 3:48 PM CDT 01/07/2025 3:48 PM CDT Killian Dumont MD LAB POCT ORDERABLES - MATEUS CE Final Result [facility] [place] [address] * (ABNORMAL) CBC without differential (01/07/2025 2:06 PM CDT) [facility] WBC 12.34(H) 3.80 - 9.90 K/cumm Hgb 7.7(L) 11.9 - 15.5 g/dL [facility] Hct 23.3(L) 35.6 - 45.5 % [facility] Plt 70(L) 150 - 400 K/cumm [facility] MPV 12.9(H) 9.1 - 12.3 fL [facility] RBC 2.74(L) 3.90 - 5.20 M/cumm [facility] MCV 85.0 81.3 - 96.4 fL [facility] MCH 28.1 27.1 - 33.3 pg [facility] MCHC 33.0 32.3 - 35.7 g/dL [facility] RDW CV 18.9(H) 11.1 - 14.9 % [facility] RDW SD 58.3(H) 35.7 - 48.1 fL [facility] NRBC abs 0.03(H) 0.00 - 0.01 K/cumm [facility] Blood 01/07/2025 2:06 PM CDT 01/07/2025 2:23 PM CDT Haylee Barrera NP LAB BLOOD ORDERABL ES Final Result Performing Organization Address [facility] Co de Phone Number [facility] [place] [address] * POCT glucose (01/07/2025 11:51 AM CDT) Glucose, POC 159 70 - 199 mg/dL Blood 01/07/2025 11:5 1 AM CDT 01/07/2025 11:51 AM CDT us Killian Dumont MD LAB POCT ORDERABLES - MATEUS CE Final Result Performing Organization Address [facility] de Phone Number [facility] Department [place] [employer] [place] [address] * Critical Care (01/07/2025 11:05 AM CDT) [...] plan with the patient's team and other medical/application support consultant staff. This time was in addition [...] Notified Glucose comment 1 Glu2: RN/MD Notified [facility] Blood 01/07/2025 8:25 AM CDT 01/07/2025 8:25 AM CDT us Killian Dumont MD LAB POCT ORDERABLES - MATEUS CE Final Result Performing Organization Address City/State/[facility] Co de Phone Number [facility] [place] [address] * (ABNORMAL) eGFR (01/07/2025 4:05 AM CDT) Pathologist [facility] eGFR 29(L) >=60 mL/min/1. 73 m2 [...] BLOOD ORDERABLES Final Result Performing Organization Address [facility] Co de Phone Number [facility] [place] [address] * (ABNORMAL) CBC without differential (01/07/2025 4:05 AM CDT) Pathologist [facility] WBC 15.36(H) 3.80 - 9.90 K/cumm Hgb 9.2(L) 11.9 - 15.5 g/dL [facility] Hct 27.5(L) 35.6 - 45.5 % [facility] Plt 76(L) 150 - 400 K/cumm [facility] MPV 10.9 9.1 - 12.3 fL [facility] RBC 3.21(L) 3.90 - 5.20 M/cumm [facility] MCV 85.7 81.3 - 96.4 fL [facility] MCH 28.7 27.1 - 33.3 pg [facility] MCHC 33.5 32.3 - 35.7 g/dL [facility] RDW CV 18.6(H) 11.1 - 14.9 % [facility] RDW SD 57.8(H) 35.7 - 48.1 fL [facility] NRBC abs 0.02(H) 0.00 - 0.01 K/cumm [facility] Blood 01/07/2025 4:05 AM CDT 01/07/2025 4:12 AM CDT Killian Dumont MD LAB BLOOD ORDERABLES Final Result Performing Organization Address City/[facility]/ZIP Co de Phone Number [facility] [place] [address] * (ABNORMAL) Phosphorus (01/07/2025 4:05 AM CDT) Pathologist [facility] Phosphorus, pl 7.0(H) 2.3 - 4.5 mg/dL Blood 01/07/2025 4:05 AM CDT 01/07/2025 4:18 AM CDT Killian Dumont MD LAB BLOOD ORDERABLES Final Result Performing Organization Address City/[facility] de Phone Number [facility] [place] [address] * (ABNORMAL) Magnesium (01/07/2025 4:05 AM CDT) [facility] Magnesium 2.7(H) 1.4 - 2.5 mg/dL Blood 01/07/2025 4:05 AM CDT 01/07/2025 4:18 AM CDT Killian Dumont MD LAB BLOOD ORDERABLES Final Result Performing Organization Address [facility] de Phone Number [facility] [place] [address] * (ABNORMAL) Hepatic function panel (01/07/2025 4:05 AM CDT) [facility] Bilirubin, total 0.6 0.1 - 1.2 mg/dL Bilirubin, direct 0.2 0.1 - 0.3 mg/dL [facility] Comment:Reviewed Protein, pl 5.5(L) 6.5 - 8.5 g/dL [facility] Albumin 3.5 3.5 - 5.0 g/dL [facility] Alk phos 64 40 - 130 Units/L [facility] ALT 690(H) 7 - 45 Units/L [facility] AST 926(H) 10 - 45 Units/L [facility] Blood 01/07/2025 4:05 AM CDT 01/07/2025 4:18 AM CDT Killian Dumont MD LAB BLOOD ORDERABLES Final Result [facility] [place] [address] * (ABNORMAL) Basic metabolic panel (01/07/2025 4:05 AM CDT) Sodium 144 135 - 145 mmol/L Potassium, pl 4.7 3.3 - 4.9 mmol/L [facility] Chloride 113(H) 97 - 110 mmol/L [facility] CO2 23 22 - 32 mmol/L [facility] Anion gap 8 2 - 15 mmol/L [facility] BUN 41(H) 6 - 25 mg/dL [facility] Creatinine 1.84(H) 0.60 - 1.10 mg/dL [facility] Glucose 202(H) 70 - 199 mg/dL [facility] Comment: Interpretive Data Fasting glucose >/= [...] 2022. Calcium 8.2(L) 8.5 - 10.3 mg/dL [facility] Blood 01/07/2025 4:05 AM CDT 01/07/2025 4:18 AM CDT us Killian Dumont MD LAB BLOOD ORDERABLES Final Result [facility] [place] [address] * POCT glucose (01/07/2025 3:09 AM CDT) Glucose, POC 185 70 - 199 mg/dL Blood 01/07/2025 3:09 AM CDT 01/07/2025 3:09 AM CDT Killian Dumont MD LAB POCT ORDERABLES - MATEUS CE Final Result Performing Organization Address [facility] Co de Phone Number [facility] [place] [address] * Transfuse platelets (01/07/2025 2:12 AM CDT) Blood Killian Dumont MD BLOOD TRANSFUSION ORDERABL ES Final Result Performing Organization Address [facility] Co de Phone Number [facility] [place] [address] * POCT glucose (01/06/2025 11:28 PM CDT) Glucose, POC 171 70 - 199 mg/dL Blood 01/06/2025 11:2 8 PM CDT 01/06/2025 11:28 PM CDT Killain Dumont MD LAB POCT ORDERABLES - MATEUS CE Final Result Performing Organization Address [facility] Co de Phone Number [facility] [place] [address] * Prepare platelets: 1 Units (01/06/2025 11:15 PM CDT) Product code [id number] Unit Number [id number] [facility] Product Blood Type OPOS [facility] Dispense Status PRESUMED TRANSFUSED [facility] Blood Venous blood specimen / Unknown 01/06/2025 11:15 PM CDT 01/06/2025 11:14 PM CDT Narrative [facility] - 01/07/2025 4:01 PM CDT Are special requirements needed? (all products are leukoreduced)->No Date required:-[id number] PLT # of Units:-1-Units Reasons:-Mild bleeding, plt < 50 K/cumm} us Killian Dumont MD BLOOD BANK PRODUCT ORDERAB LES Final Result [facility] [place] [address] * XR Chest 1 View (01/06/2025 11:12 [...] Chemistries, Arterial - (01/06/2025 9:44 PM CDT) pH, Art POC 7.25(L) 7.35 - 7.45 pCO2, Art POC 45 35 - 45 mmHg [facility] pO2, Art POC 108 83 - 108 mmHg [facility] Na, POC 144 135 - 145 mmol/L [facility] K POC 4.6 3.3 - 4.9 mmol/L [facility] Comment: Interpretive Data Not all point of care methods assess for hemolysis. Confirm with instrument and retest K+ if not consistent with clinical signs and symptoms. Current Interpretive Data was last revised on 2023. Cl, POC 112(H) 97 - 110 mmol/L [facility] Ionized Ca, POC 4.87 4.50 - 5.10 mg/dL [facility] Glucose, POC 196 70 - 199 mg/dL [facility] Lactate POC 4.0(C) 0.7 - 2.0 mmol/L [facility] SO2 (eber) arterial 100(H) 90 - 95 % [facility] Base excess, POC -7.3 mmol/L [facility] HCO3, Art POC 20 20 - 30 mmol/L [facility] Hct, POC 31.0(L) 36.3 - 45.3 % [facility] Total Hb, POC 10.4(L) 11.9 - 15.5 g/dL [facility] Blood 01/06/2025 9:44 PM CDT 01/06/2025 9:44 PM CDT Killian Dumont MD LAB POCT ORDERABLES - MATEUS CE Final Result Performing Organization Address City/[facility]/ZIP Co de Phone Number [facility] [place] [address] * Immature platelet fraction (01/06/2025 9:38 PM CDT) [facility] IPF 4.0 1.6 - 10.1 % Blood 01/06/2025 9:38 PM CDT 01/06/2025 10:06 PM CDT Killian Dumont MD LAB BLOOD ORDERABLES Final Result [facility] [place] [address] * (ABNORMAL) eGFR (01/06/2025 9:38 PM CDT) [...] 9:38 PM CDT 01/06/2025 9:55 PM CDT us Killian Dumont MD LAB BLOOD ORDERABLES Final Result [facility] [place] [address] * aPTT (01/06/2025 9:38 PM CDT) aPTT [...] BLOOD ORDERABLES Final Result Performing Organization Address City/[facility] Co de Phone Number [facility] [place] [address] * (ABNORMAL) Protime-INR (01/06/2025 9:38 PM CDT) PT 14.6(H) 10.2 - 13.5 sec INR 1.30(H) 0.90 - 1.20 [facility] Comment: Interpretive data Oral anticoagulant therapeutic ranges: Venous thromboembolism prophylaxis or treatment: 2.0-3.0 CARDIOLOGY Standard range: 2.0-3.0 High-intensity range: 2.5-3.5 Refer to indication-specific guidelines for appropriate target ranges for prosthetic heart valve replacement. Current interpretive data was last revised on 2019. Blood 01/06/2025 9:38 PM CDT 01/06/2025 10:01 PM CDT Killian Dumont MD LAB BLOOD ORDERABLES Final Result Performing Organization Address City/[facility] Co de Phone Number [facility] [place] [address] * (ABNORMAL) CBC without differential (01/06/2025 9:38 PM CDT) WBC 14.68(H) 3.80 - 9.90 K/cumm Hgb 10.0(L) 11.9 - 15.5 g/dL [facility] Hct 30.3(L) 35.6 - 45.5 % [facility] Plt 44(C) 150 - 400 K/cumm [facility] Comment:Platelet count confi rmed by additional testing. Critical platelet count threshold determined by patient location: Outpatient:<50 K/cumm , Inpatient adults:<20 K/cumm , Inpatient pediatric:<25 K/cumm, BMT service:<10 K/cumm MPV 9.5 9.1 - 12.3 fL [facility] RBC 3.46(L) 3.90 - 5.20 M/cumm [facility] MCV 87.6 81.3 - 96.4 fL [facility] MCH 28.9 27.1 - 33.3 pg [facility] MCHC 33.0 32.3 - 35.7 g/dL [facility] RDW CV 18.3(H) 11.1 - 14.9 % [facility] RDW SD 58.6(H) 35.7 - 48.1 fL [facility] NRBC abs 0.02(H) 0.00 - 0.01 K/cumm [facility] Blood 01/06/2025 9:38 PM CDT 01/06/2025 9:55 PM CDT Killian Dumont MD LAB BLOOD ORDERABLES Final Result Performing Organization Address [facility] Co de Phone Number [facility] [place] [address] * (ABNORMAL) Phosphorus (01/06/2025 9:38 PM CDT) Phosphorus, pl 5.8(H) 2.3 - 4.5 mg/dL Blood 01/06/2025 9:38 PM CDT 01/06/2025 9:55 PM CDT Killian Dumont MD LAB BLOOD ORDERABLES Final Result Performing Organization Address [facility] Co de Phone Number [facility] [place] [address] * Magnesium (01/06/2025 9:38 PM CDT) Magnesium 1.6 1.4 - 2.5 mg/dL Blood 01/06/2025 9:38 PM CDT 01/06/2025 9:55 PM CDT Killian Dumont MD LAB BLOOD ORDERABLES Final Result Performing Organization Address [facility]/ZIP Co de Phone Number [facility] [place] [address] * (ABNORMAL) Hepatic function panel (01/06/2025 9:38 PM CDT) Bilirubin, total 0.5 0.1 - 1.2 mg/dL Bilirubin, direct <0.2 0.1 - 0.3 mg/dL [facility] Protein, pl 5.4(L) 6.5 - 8.5 g/dL [facility] Albumin 3.7 3.5 - 5.0 g/dL [facility] Alk phos 52 40 - 130 Units/L [facility] ALT 389(H) 7 - 45 Units/L [facility] Comment:Repeated and Verifie d AST 463(H) 10 - 45 Units/L [facility] Comment:Repeated and Verifie d Blood 01/06/2025 9:38 PM CDT 01/06/2025 9:55 PM CDT Killian Dumont MD LAB BLOOD ORDERABLES Final Result [facility] [place] [address] * (ABNORMAL) Lipid panel (01/06/2025 9:38 PM [...] revised on 2017. Triglycerides 141 <=149 mg/dL [facility] Comment: Interpretive Data Ages < or [...] revised on 2017. HDL 28(L) >=40 mg/dL [facility] Comment: Interpretive Data Ages < or [...] on 2017. LDL, calculated 85 <=129 mg/dL [facility] Comment: Interpretive Data Ages < or [...] revised on 2023. Non-HDL Cholesterol 110 mg/dL [facility] Comment: Interpretive Data Ages < or [...] last revised on 2017. Chol/HDL ratio 5 [facility] Blood 01/06/2025 9:38 PM CDT 01/06/2025 9:55 PM CDT us Killian Dumont MD LAB BLOOD ORDERABLES Final Result [facility] [place] [address] * (ABNORMAL) Basic metabolic panel (01/06/2025 9:38 PM CDT) Sodium 145 135 - 145 mmol/L Potassium, pl 4.5 3.3 - 4.9 mmol/L [facility] Chloride 113(H) 97 - 110 mmol/L [facility] CO2 22 22 - 32 mmol/L [facility] Anion gap 10 2 - 15 mmol/L [facility] BUN 37(H) 6 - 25 mg/dL [facility] Creatinine 1.58(H) 0.60 - 1.10 mg/dL [facility] Glucose 190 70 - 199 mg/dL [facility] Comment: Interpretive Data Fasting glucose >/= [...] 2022. Calcium 8.5 8.5 - 10.3 mg/dL [facility] Blood 01/06/2025 9:38 PM CDT 01/06/2025 9:55 PM CDT Killian Dumont MD LAB BLOOD ORDERABLES Final Result Performing Organization Address City/[facility]/ZIP Co de Phone Number [facility] [employer] [place] [address] * POCT glucose (01/06/2025 9:34 PM CDT) [facility] Glucose, POC 187 70 - 199 mg/dL Blood 01/06/2025 9:34 PM CDT 01/06/2025 9:34 PM CDT Killian Dumont MD LAB POCT ORDERABLES - MATEUS CE Final Result Performing Organization Address [facility] [place] [address] * Transfuse plasma (01/06/2025 7:49 PM CDT) Blood Bobby Meza MD BLOOD TRANSFUSION ORDERABLES Final Result Performing Organization Address City/[facility] Co de Phone Number [facility] [place] [employer] [place] [place] [address] * Transfuse RBC (01/06/2025 7:27 PM CDT) Blood Bobby Meza MD BLOOD TRANSFUSION ORDERABLES Final Result Performing Organization Address City/[facility] Co de Phone Number [facility] [place] [address] * (ABNORMAL) POC Blood Gas and Chemistries, Arterial - (01/06/2025 7:02 PM CDT) pH, Art POC 7.30(L) 7.35 - 7.45 pCO2, Art POC 35 35 - 45 mmHg [facility] pO2, Art POC 115(H) 83 - 108 [facility] Na, POC 143 135 - 145 mmol/L [facility] K POC 4.4 3.3 - 4.9 mmol/L [facility] Comment: Interpretive Data Not all point of care methods assess for hemolysis. Confirm with instrument and retest K+ if not consistent with clinical signs and symptoms. Current Interpretive Data was last revised on 2023. Cl, POC 116(H) 97 - 110 mmol/L [facility] Ionized Ca, POC 4.84 4.50 - 5.10 mg/dL [facility] Glucose, POC 195 70 - 199 mg/dL [facility] Lactate POC 4.8(C) 0.7 - 2.0 mmol/L [facility] SO2 (eber) arterial 99(H) 90 - 95 % [facility] Base excess, POC -8.4 mmol/L [facility] Hct, POC 28.0(L) 36.3 - 45.3 % [facility] Total Hb, POC 9.4(L) 11.9 - 15.5 g/dL [facility] Blood 01/06/2025 7:02 PM CDT 01/06/2025 7:02 PM CDT us Killian Dumont MD LAB POCT ORDERABLES - MATEUS CE Final Result [facility] [place] [address] * XR Spine Lumbar 2 or 3 [...] Meza MD BLOOD TRANSFUSION ORDERABLES Final Result [facility] [place] [address] * (ABNORMAL) POC Blood Gas and Chemistries, Arterial - (01/06/2025 5:31 PM CDT) pH, Art POC 7.33(L) 7.35 - 7.45 pCO2, Art POC 33(L) 35 - 45 mmHg [facility] pO2, Art POC 144(H) 83 - 108 mmHg [facility] Na, POC 143 135 - 145 mmol/L [facility] K POC 4.4 3.3 - 4.9 mmol/L [facility] Comment: Interpretive Data Not all point of care methods assess for hemolysis. Confirm with instrument and retest K+ if not consistent with clinical signs and symptoms. Current Interpretive Data was last revised on 2023. Cl, POC 113(H) 97 - 110 mmol/L [facility] Ionized Ca, POC 5.55(H) 4.50 - 5.10 mg/dL [facility] Glucose, POC 227(H) 70 - 199 mg/dL [facility] Lactate POC 5.0(C) 0.7 - 2.0 mmol/L [facility] SO2 (eber) arterial 99(H) 90 - 95 % [facility] Base excess, POC -7.7 mmol/L [facility] Hct, POC 29.0(L) 36.3 - 45.3 % [facility] Total Hb, POC 9.8(L) 11.9 - 15.5 g/dL [facility] Blood 01/06/2025 5:31 PM CDT 01/06/2025 5:31 PM CDT us Killian Dumont MD LAB POCT ORDERABLES - MATEUS CE Final Result [facility] [place] [address] * XR Spine Lumbar 2 or 3 [...] Units (01/06/2025 4:54 PM CDT) Product code [id number] Unit Number [id number] [facility] Product Blood Type ANEG [facility] Dispense Status PRESUMED TRANSFUSED [facility] Blood Venous blood specimen / Unknown 01/06/2025 4:54 PM CDT 01/06/2025 4:54 PM CDT Narrative [facility] - 01/07/2025 8:00 AM CDT Other indication->surgery Date required:-[id number] FFP # of Units:-2-Units Reasons:-Other (Specify)} Bobby Meza MD BLOOD BANK PRODUCT ORDERABLES Final Result [facility] [place] [address] * Transfuse RBC (01/06/2025 4:51 PM CDT) Blood Bobby Meza MD BLOOD TRANSFUSION ORDERABLES Final Result [facility] [place] [address] * (ABNORMAL) POC Blood Gas and Chemistries, Arterial - (01/06/2025 4:26 PM CDT) pH, Art POC 7.34(L) 7.35 - 7.45 pCO2, Art POC 37 35 - 45 mmHg [facility] pO2, Art POC 146(H) 83 - 108 mmHg [facility] Na, POC 142 135 - 145 mmol/L [facility] K POC 4.7 3.3 - 4.9 mmol/L [facility] Comment: Interpretive Data Not all point of care methods assess for hemolysis. Confirm with instrument and retest K+ if not consistent with clinical signs and symptoms. Current Interpretive Data was last revised on 2023. Cl, POC 111(H) 97 - 110 mmol/L [facility] Ionized Ca, POC 4.15(L) 4.50 - 5.10 mg/dL [facility] Glucose, POC 267(H) 70 - 199 mg/dL [facility] Lactate POC 5.0(C) 0.7 - 2.0 mmol/L [facility] SO2 (eber) arterial 100(H) 90 - 95 % [facility] Base excess, POC -5.3 mmol/L [facility] Hct, POC 30.0(L) 36.3 - 45.3 % [facility] Total Hb, POC 9.9(L) 11.9 - 15.5 g/dL [facility] Blood 01/06/2025 4:26 PM CDT 01/06/2025 4:26 PM CDT us Killian Dumont MD LAB POCT ORDERABLES - MATEUS CE Final Result [facility] [place] [address] * Transfuse plasma (01/06/2025 4:06 PM CDT) Blood us Bobby Meza MD BLOOD TRANSFUSION ORDERAB[place] [address] * Transfuse RBC (01/06/2025 4:04 PM CDT) Blood us Bobby Meza MD BLOOD TRANSFUSION ORDERABLES Edited Result - Final [facility] [place] [address] * Transfuse plasma (01/06/2025 3:20 PM CDT) Blood Bobby Meza MD BLOOD TRANSFUSION ORDERABLES Final Result Performing Organization Address [facility] Co de Phone Number [facility] [place] [address] * Transfuse RBC (01/06/2025 3:15 PM CDT) Blood Bobby Meza MD BLOOD TRANSFUSION ORDERABLES Edited Result - Final Performing Organization Address [facility] Co de Phone Number [facility] [place] [address] * (ABNORMAL) POC Blood Gas and Chemistries, Arterial - (01/06/2025 2:33 PM CDT) [facility] pH, Art POC 7.32(L) 7.35 - 7.45 pCO2, Art POC 36 35 - 45 mmHg [facility] pO2, Art POC 156(H) 83 - 108 mmHg [facility] Na, POC 141 135 - 145 mmol/L [facility] K POC 4.5 3.3 - 4.9 mmol/L [facility] Comment: Interpretive Data Not all point of care methods assess for hemolysis. Confirm with instrument and retest K+ if not consistent with clinical signs and symptoms. Current Interpretive Data was last revised on 2023. Cl, POC 112(H) 97 - 110 mmol/L [facility] Ionized Ca, POC 5.01 4.50 - 5.10 mg/dL [facility] Glucose, POC 235(H) 70 - 199 mg/dL [facility] Lactate POC 4.4(C) 0.7 - 2.0 mmol/L [facility] SO2 (eber) arterial 99(H) 90 - 95 % [facility] Base excess, POC -6.9 mmol/L [facility] Hct, POC 28.0(L) 36.3 - 45.3 % [facility] Total Hb, POC 9.4(L) 11.9 - 15.5 g/dL [facility] Blood 01/06/2025 2:33 PM CDT 01/06/2025 2:33 PM CDT Killian Dumont MD LAB POCT ORDERABLES - MATEUS CE Final Result [facility] [place] [address] * FL Fluoroscopy < 1 Hour (01/06/2025 2:23 PM CDT) Narrative [facility] - 01/06/2025 2:23 PM CDT The images from this study are not interpreted by Radiology. Please refer to the physician's procedure / OR operative note. Killian Dumont MD IMG FLUOROSCOPY PROCEDURES Final Result [facility] * (ABNORMAL) POC Blood Gas and Chemistries, Arterial - (01/06/2025 12:31 PM CDT) pH, Art POC 7.28(L) 7.35 - 7.45 pCO2, Art POC 34(L) 35 - 45 mmHg [facility] pO2, Art POC 156(H) 83 - 108 mmHg [facility] Na, POC 141 135 - 145 mmol/L [facility] K POC 4.1 3.3 - 4.9 mmol/L [facility] Comment: Interpretive Data Not all point of care methods assess for hemolysis. Confirm with instrument and retest K+ if not consistent with clinical signs and symptoms. Current Interpretive Data was last revised on 2023. Cl, POC 114(H) 97 - 110 mmol/L [facility] Ionized Ca, POC 4.61 4.50 - 5.10 mg/dL [facility] Glucose, POC 250(H) 70 - 199 mg/dL [facility] Lactate POC 2.8(H) 0.7 - 2.0 mmol/L [facility] SO2 (eber) arterial 99(H) 90 - 95 % [facility] Base excess, POC -9.8 mmol/L [facility] Hct, POC 30.0(L) 36.3 - 45.3 % [facility] Total Hb, POC 10.1(L) 11.9 - 15.5 g/dL [facility] Blood 01/06/2025 12:3 1 PM CDT 01/06/2025 12:31 PM CDT us Killian Dumont MD LAB POCT ORDERABLES - MATEUS CE Final Result [facility] [place] [address] * XR Spine Lumbar 1 View (01/06/2025 [...] IMG XR PROCEDURES Final Re sult * [place] AN PROCEDURE PLACEHOLDER (01/06/2025 10:49 AM CDT) [...] MD ANESTHESIA ORDERAB LES Final Result * [place] AN PROCEDURE PLACEHOLDER (01/06/2025 10:48 AM CDT) [...] MD ANESTHESIA ORDERAB LES Final Result * [place] AN PROCEDURE PLACEHOLDER (01/06/2025 10:47 AM CDT) [...] 2 Units (01/06/2025 9:56 AM CDT) Pathologist [facility] Product code [id number] Unit Number [id number] [facility] Product Blood Type OPOS [facility] Dispense Status PRESUMED TRANSFUSED [facility] Product code [id number] [facility] Unit Number [id number] * [facility] Product Blood Type OPOS [facility] Dispense Status PRESUMED TRANSFUSED [facility] Blood Venous blood specimen / Unknown 01/06/2025 9:56 AM CDT 01/06/2025 9:57 AM CDT Narrative [facility] - 01/07/2025 12:56 AM CDT Date required:-[id number] FFP # of Units:-2-Units Reasons:-High risk of life threatening bleeding, INR us Bobby Meza MD BLOOD BANK PRODUCT ORDERABLES Final Result Performing Organization Address [facility] de Phone Number [facility] [place] [employer] [place] [place] [address] * Prepare RBC: 4 Units (01/06/2025 9:56 AM CDT) [facility] Product code [id number] [facility] Unit Number [id number] [facility] Product Blood Type OPOS [facility] Dispense Status PRESUMED TRANSFUSED [facility] Product code [id number] [facility] Unit Number [id number] [facility] Product Blood Type OPOS [facility] Dispense Status PRESUMED TRANSFUSED [facility] Product code N6520I82 Unit Number [id number] V [facility] Product Blood Type OPOS [facility] Dispense Status PRESUMED TRANSFUSED [facility] Product code [id number] [facility] Unit Number [id number] V [facility] Product Blood Type OPOS [facility] Dispense Status PRESUMED TRANSFUSED [facility] Blood 01/06/2025 9:56 AM CDT 01/06/2025 9:57 AM CDT Narrative [facility] - 01/07/2025 12:56 AM CDT Are special requirements needed? (All products are leukoreduced and CMV- safe)- >No Date required:-[id number] LRRBC # of [id number] Reasons:-Intra-op transfusion} Bobby Meza MD BLOOD BANK PRODUCT ORDERABLES Final Result Performing Organization Address [facility] [place] [address] * WA AN ELECTIVE ENDOTRACHEAL AIRWAY, [place] AN PROCEDURE PLACEHOLDER (01/06/2025 9:47 AM CDT) [...] Chemistries, Arterial - (01/06/2025 9:39 AM CDT) [facility] pH, Art POC 7.25(L) 7.35 - 7.45 pCO2, Art POC 49(H) 35 - 45 mmHg [facility] pO2, Art POC 123(H) 83 - 108 mmHg [facility] Na, POC 140 135 - 145 mmol/L [facility] K POC 4.0 3.3 - 4.9 mmol/L [facility] Comment: Interpretive Data Not all point of care methods assess for hemolysis. Confirm with instrument and retest K+ if not consistent with clinical signs and symptoms. Current Interpretive Data was last revised on 2023. Cl, POC 111(H) 97 - 110 mmol/L [facility] Ionized Ca, POC 4.58 4.50 - 5.10 mg/dL [facility] Glucose, POC 181 70 - 199 mg/dL [facility] Lactate POC 2.3(H) 0.7 - 2.0 mmol/L [facility] SO2 (eber) arterial 100(H) 90 - 95 % [facility] Base excess, POC -5.9 mmol/L [facility] Hct, POC 39.0 36.3 - 45.3 % [facility] Total Hb, POC 13.1 11.9 - 15.5 g/dL [facility] Blood 01/06/2025 9:39 AM CDT 01/06/2025 9:39 AM CDT us Killian Dumont MD LAB POCT ORDERABLES - MATEUS CE Final Result Performing Organization Address [facility] Co de Phone Number [facility] Department [place] [employer] [place] [place] [address] * Type and screen (01/06/2025 6:50 AM CDT) [facility] Maribell, indirect Negative ABO Rh O Positive [facility] Blood 01/06/2025 6:50 AM CDT 01/06/2025 7:07 AM CDT Narrative [facility] - 01/06/2025 8:03 AM CDT Has the patient had Daratumumab or Isatuximab in the past 6 months?->Unknown us Gonzalo Hsu NP LAB BLOOD BANK TEST ORDE RABLEONARDO Final Result [facility] [place] [employer] [place] [address] * Prepare RBC: 2 Units (01/06/2025 6:17 AM CDT) Pathologist [facility] Product code [id number] Unit Number [id number] [facility] Product Blood Type OPOS [facility] Dispense Status PRESUMED TRANSFUSED [facility] Blood 01/06/2025 6:17 AM CDT 01/06/2025 6:17 AM CDT Narrative [facility] - 01/07/2025 8:00 AM CDT Specify Procedure:->[id number] Are special requirements needed? (All products are leukoreduced and CMV- safe)- >No Date required:-[id number] LRRBC # of [id number] Reasons:-Hold for procedure (specify procedure)} Goznalo Hsu NP BLOOD BANK PRODUCT ORDER BRINDA Final Result [facility] [place] [address] * IR Central Line Placement > 5 [...] was obtained. Prior to beginning the procedure, [place] Protocol was used to confirm the patient's [...] was obtained. Prior to beginning the procedure, [place] Protocol was used to confirm the patient's [...] 12 rib bearing thoracic vertebra and 5 wnl-bco-hgkekji lumbar vertebra are present. There is a [...] examination is within expected limits. Procedure Note Sandip Harris MD - 12/29/2024 XR SCOLIOSIS 6 OR MORE VIEWS HISTORY: Flat back syndrome, fusion of the lumbar region Comparison: None available. FINDINGS: AP and lateral views of the cervical, thoracic and lumbosacral spines were provided. 7 cervical, 12 rib bearing thoracic vertebra and 5 zqj-obz-ewbovyl lumbar vertebra are present. There is a [...] findings. Electronically signed by: Sandip Harris M.D. us Killian Dumont MD IMG XR PROCEDURES Final Re sult * CT Lumbar Spine WO Contrast (12/29/2024 11:24 AM CDT) Anatomical Region Laterality Modality Spine N/A Digital Radiogra phy 12/29/2024 12:1 6 PM CDT Impressions [...] Rh O Positive Maribell, indirect Negative [facility] Blood 12/22/2024 3:33 PM CDT 12/22/2024 4:42 PM CDT Narrative [facility] - 12/22/2024 5:48 PM CDT Has the patient had Daratumumab or Isatuximab in the past 6 months?->Unknown Is this test being ordered in advance for a procedure?->Yes Expected date of procedure:->01/06/25 Has the patient been transfused in the past 3 months?->No Has the patient been in the past 3 months?->No us Gonzalo Hsu NP LAB BLOOD BANK TEST ORDE RABLEONARDO Final Result Performing Organization Address City/[facility]/ZIP Co de Phone Number [facility] [place] [address] * (ABNORMAL) eGFR (12/22/2024 3:33 PM CDT) [...] data was last reviewed 2021. Blood 12/22/2024 3:3 3 PM CDT 12/22/2024 4:38 PM CDT Killian Dumont MD LAB BLOOD ORDERABLES Final Result Performing Organization Address City/[facility]/ZIP Co de Phone Number [facility] [place] [address] * Differential, auto (12/22/2024 3:33 PM CDT) Neutrophil abs 6.08 1.50 - 6.50 K/cumm Imm gran abs 0.07 0.00 - 0.10 K/cumm [facility] Lymphocyte abs 1.89 0.80 - 3.30 K/cumm [facility] Monocyte abs 0.65 0.20 - 0.80 K/cumm [facility] Eosinophil abs 0.07 0.00 - 0.50 K/cumm [facility] Basophil abs 0.03 0.00 - 0.10 K/cumm [facility] Neutrophil pct 69.2 % [facility] Comment: Interpretive Data Percent cell count reference ranges are not reported, since discordance with absolute values may lead to misinterpretation of CBC data. Current Interpretive Data was last revised on 2017. Imm gran pct 0.8 % [facility] Comment: Interpretive Data Percent cell count reference ranges are not reported, since discordance with absolute values may lead to misinterpretation of CBC data. Current Interpretive Data was last revised on 2017. Lymphocyte pct 21.5 % [facility] Comment: Interpretive Data Percent cell count reference ranges are not reported, since discordance with absolute values may lead to misinterpretation of CBC data. Current Interpretive Data was last revised on 2017. Monocyte pct 7.4 % [facility] Comment: Interpretive Data Percent cell count reference ranges are not reported, since discordance with absolute values may lead to misinterpretation of CBC data. Current Interpretive Data was last revised on 2017. Eosinophil pct 0.8 % [facility] Comment: Interpretive Data Percent cell count reference ranges are not reported, since discordance with absolute values may lead to misinterpretation of CBC data. Current Interpretive Data was last revised on 2017. Basophil pct 0.3 % [facility] Comment: Interpretive Data Percent cell count reference ranges are not reported, since discordance with absolute values may lead to misinterpretation of CBC data. Current Interpretive Data was last revised on 2017. Blood 12/22/2024 3:33 PM CDT 12/22/2024 4:38 PM CDT Killian Dumont MD LAB BLOOD ORDERABLES Final Result [facility] [place] [address] * Urinalysis reflex to microscopic and culture Urine, bladder (12/22/2024 3:33 PM CDT) Color, ur Straw Yellow Clarity, ur Clear Clear [facility] Specific gravity, ur 1.011 1.003 - 1.030 [facility] pH, urine 6.0 [facility] Comment: Interpretive Data U rine pH is affected by diet, medications, systemic acid-base disturbances, and renal tubular function. pH may affect urinary stone formation. For example, urine pH below 6.0 may help reduce the tendency for calcium phosphate stones and pH greater than 6.0 may reduce the tendency for uric acid stone formation. Source: [facility] Current Interpretive Data was last revised on 2017 Protein, ur ql Negative Negative [facility] Glucose, ur ql Negative Negative [facility] Ketones, ur Negative Negative [facility] Bilirubin, ur Negative Negative [facility] Blood, ur Negative Negative [facility] Urobilinogen, ur <2.0 <2.0 mg/dL [facility] Nitrite, ur Negative Negative [facility] Leukocyte esterase, ur Negative Negative [facility] UA reflex comment Reflex conditions for microscopic UA and culture not met. [facility] Urine, bladder 12/22/2024 3: 33 PM CDT 12/22/2024 4:30 PM CDT us Killian Dumont MD LAB MICROBIOLOGY - GENERAL ORDERABLES Final Result [facility] [place] [address] * CBC with auto differential (12/22/2024 3:33 PM CDT) WBC 8.79 3.80 - 9.90 K/cumm Hgb 14.4 11.9 - 15.5 g/dL [facility] Hct 43.2 35.6 - 45.5 % [facility] Plt 230 150 - 400 K/cumm [facility] MPV 10.1 9.1 - 12.3 fL [facility] RBC 4.57 3.90 - 5.20 M/cumm [facility] MCV 94.5 81.3 - 96.4 fL [facility] MCH 31.5 27.1 - 33.3 pg [facility] MCHC 33.3 32.3 - 35.7 g/dL [facility] RDW CV 13.2 11.1 - 14.9 % [facility] RDW SD 45.9 35.7 - 48.1 fL [facility] NRBC abs 0.00 0.00 - 0.01 K/cumm [facility] Blood 12/22/2024 3:33 PM CDT 12/22/2024 4:38 PM CDT us Killian Dumont MD LAB BLOOD ORDERABLES Final Result [facility] [place] [address] * Nicotine metabolite screen, urine (12/22/2024 3:33 PM CDT) [facility] Nicotine, ur <5.0 <5.0 ng/mL [facility] Cotinine, ur <5.0 <5.0 ng/mL [facility] Anabasine ur <2.0 <2.0 ng/mL [facility] Comment: ADDITIONAL INFORMATION This test was developed and its performance characteristics determined by [facility] in a manner consistent with CLIA requirements. This test has not been cleared or approved by the U.S. Food and Drug Administration. Test Performed by: [facility] - [facility] [address] [place] [address] [employer] Operator: Shae Calzada Ph.D.; CLIA# [id number] Nornicotine, ur <2.0 <2.0 ng/mL [facility] Urine 12/22/2024 3:33 PM CDT 12/22/2024 4:45 PM CDT Killian Dumont MD LAB URINE ORDERABLES Final Result Performing Organization Address City/[facility] Co de Phone Number [facility] [place] [address] [facility] * Vitamin D 25 hydroxy (12/22/2024 3:33 PM CDT) Pathologist [facility] Vitamin D 25-OH 31 30 - 80 ng/mL Blood 12/22/2024 3:33 PM CDT 12/22/2024 4:38 PM CDT Killian Dumont MD LAB BLOOD ORDERABLES Final Result Performing Organization Address [facility] Co de Phone Number [facility] [employer] [place] [address] * Erythrocyte sedimentation rate (12/22/2024 3:33 PM CDT) Erythrocyte sedimentation rate 19 1 - 30 mm/hr Blood 12/22/2024 3:33 PM CDT 12/22/2024 4:38 PM CDT Killian Dumont MD LAB BLOOD ORDERABLES Final Result Performing Organization Address [facility] Co de Phone Number [facility] [employer] [place] [address] * CRP (acute phase) (12/22/2024 3:33 PM CDT) CRP 7.0 <=10.0 mg/L Blood 12/22/2024 3:33 PM CDT 12/22/2024 4:38 PM CDT Killian Dumont MD LAB BLOOD ORDERABLES Final Result Performing Organization Address [facility] de Phone Number [facility] [place] [address] * (ABNORMAL) Hemoglobin A1c (12/22/2024 3:33 PM CDT) [facility] Hgb A1C 6.7(H) 4.0 - 5.6 % Estimated Average Glucose 146 mg/dL [facility] Comment: The ADA recommends reporting an [...] BLOOD ORDERABLES Final Result Performing Organization Address [facility] de Phone Number [facility] [place] [address] * (ABNORMAL) Comprehensive metabolic panel (12/22/2024 3:33 PM CDT) [facility] Sodium 141 135 - 145 mmol/L Potassium, pl 4.6 3.3 - 4.9 mmol/L [facility] Chloride 102 97 - 110 mmol/L [facility] CO2 28 22 - 32 mmol/L [facility] Anion gap 11 2 - 15 mmol/L [facility] BUN 33(H) 6 - 25 mg/dL [facility] Creatinine 1.16(H) 0.60 - 1.10 mg/dL [facility] Glucose 106 70 - 199 mg/dL [facility] Comment: Interpretive Data Fasting glucose >/= [...] Calcium 10.1 8.5 - 10.3 mg/dL [facility] Bilirubin, total 0.4 0.1 - 1.2 mg/dL [facility] Protein, pl 7.9 6.5 - 8.5 g/dL [facility] Albumin 4.4 3.5 - 5.0 g/dL [facility] Alk phos 93 40 - 130 Units/L [facility] ALT 18 7 - 45 Units/L [facility] AST 18 10 - 45 Units/L [facility] Blood 12/22/2024 3:33 PM CDT 12/22/2024 4:38 PM CDT us Killian Dumont MD LAB BLOOD ORDERABLES Final Result [facility] [place] [address] * XR Scoliosis 4 or 5 View [...] the non fused levels, most pronounced and ksle-qv-hhxspogg at L2-L3 . LUMBAR HARDWARE: L3-L5 posterior [...] joint effusions. Ligamentum flavum thickening. Epidural lipomatosis. Ymyn-ba-qurpwvjk right and vlkb-rf-wogdbwbe left neural foraminal stenosis. Moderate spinal canal [...] severe left facet arthropathy. Mild right and wmlk-co-zphllxky left neural foraminal stenosis. No significant spinal [...] Tonny Napier M.D. MZ: CRISTHIAN Report ID: [id number] Reading Location: [place] [address] Procedure Note Tonny Napier MD - 12/21/2024 [...] at the non fusedlevels, most pronounced and hkic-nq-cqigajte at L2-L3 . LUMBAR HARDWARE: L3-L5 posterior [...] joint effusions. Ligamentum flavum thickening. Epidural lipomatosis. Dwbm-nk-qviybuua right and brue-gg-rqmqgqzh left neural foraminalstenosis. Moderate spinal canal stenosis [...] severe left facet arthropathy. Mild right and incr-la-uymllfuv leftneural foraminal stenosis. No significant spinal canal [...] Tonny Napier M.D. MZ: CRISTHIAN Report ID: [id number] Reading Location: [place] [address] Killian Dumont MD [facility] MRI PROCEDURES Final R esult * MRI [...] the non fused levels, most pronounced and hthh-qm-psinmmeq at L2-L3 . LUMBAR HARDWARE: L3-L5 posterior [...] joint effusions. Ligamentum flavum thickening. Epidural lipomatosis. Qfdf-ff-eglripms right and myjr-ib-vecoljvw left neural foraminal stenosis. Moderate spinal canal [...] severe left facet arthropathy. Mild right and abas-vj-cevjbafm left neural foraminal stenosis. No significant spinal [...] Tonny Napier M.D. MZ: CRISTHIAN Report ID: [id number] Reading Location: [id number] Procedure Note Tonny Napier MD - 12/21/2024 [...] at the non fusedlevels, most pronounced and tfvp-wx-metidvzd at L2-L3 . LUMBAR HARDWARE: L3-L5 posterior [...] joint effusions. Ligamentum flavum thickening. Epidural lipomatosis. Imur-ff-dgzysrhw right and zcem-ko-vcqnzudd left neural foraminalstenosis. Moderate spinal canal stenosis [...] severe left facet arthropathy. Mild right and gwsy-ri-ctvckucs leftneural foraminal stenosis. No significant spinal canal [...] Tonny Napier M.D. MZ: CRISTHIAN Report ID: [id number] Reading Location: [place] [address] us Killian Dumont MD [facility] MRI PROCEDURES Final R esult * CT [...] M.D. JOSE EDUARDO: JOSE EDUARDO Report ID: [id number] Reading Location: [id number] Procedure Note Hilario Villanueva MD - 12/28/2024 [...] M.D. JOSE EDUARDO: JOSE EDUARDO Report ID: [id number] Reading Location: [id number] Killian Dumont MD IM CT PROCEDURES Final Re sult * Dexa TBS Axial Skeleton Bone Density 1 or more sites (08/27/2024 2:37 PM CDT) Anatomical Region Laterality Modality Wrist, Body N/A Radiographic Joseline ging Narrative 08/27/2024 4:58 PM CDT Patient Name: Evelyn Gil Date of : 1955 Date of scan: 08/27/2024 Bone mineral density was performed on a [email or web address] Discovery Densitometer. Based on machine cross-calibration and [...] density scan were prepared by Taya Espinosa) LUKAS who is accredited by the International Society of Clinical Densitometry. The overall patient assessment and scan interpretation were performed by Rocío Elkins M.D. who is certified by the International Society of Clinical Densitometry. [id number] Killian Dumont MD IMG DXA PROCEDURES Final [...] compared to prior imaging studies performed at [facility] on 01/11/2021, 02/22/2022 and 07/15/2023. The breasts [...] compared to prior imaging studies performed at [facility] on 01/11/2021, 02/22/2022 and 07/15/2023. The breasts are almost entirely fatty. There is no suspicious abnormality in either breast. There are no significant changes from the prior study. Impression: There is no mammographic evidence of malignancy. Annual screening mammography is recommended. OVERALL FINAL ASSESSMENT: BI-RADS CATEGORY 1: Negative. Self Screening Mammogram IMG MAMMO PROCEDURES Fi nal Result * COLONOSCOPY (02/02/2013 12:00 AM CDT) Anatomical Region Laterality Modality Other Narrative 02/02/2013 12:00 AM CDT Ordered by an unspecified provider. Procedure Note Bev Valentin MD - 02/02/2013 12:00 AM CDT PROCEDURE REPORT Patient: EVELYN GIL Account: [id number] Room No: : 1955 Patient Type: SDS Attend.: Manny Rivera M.D. Admit Date: 02/02/2013 [...] Manny Rivera MD On 02/04/2013 10:22:42 AM us Historical Provider ENDOSCOPY PROCEDURES Renee l Result from Last 3 Months or Most Recently Relevant to Health Maintenance Insurance MEDICARE [facility] Address: [address] [address] [place] [address] [facility] MDCR HMO REF UHC MEDICARE ADVANTAGE UHC MEDICARE ADVANTAGE [facility] MEDICARE ADVANTAGE Advance Directives For more information, please contact: [phone] * Full Code (Latest Code Status on File) Date Activated Date Inactivated Comments 01/09/2025 5:43 PM 01/14/2025 10:35 PM * Full Code Date Activated Date Inactivated Comments 01/06/2025 9:38 PM 01/09/2025 5:43 PM * Full Code Date Activated Date Inactivated Comments 01/05/2025 7:51 AM 01/06/2025 5:13 AM * Full Code Date Activated Date Inactivated Comments 10/08/2022 2:07 PM 10/11/2022 8:50 PM Care Teams Pacu Nurse Relationship Specialty Start Date End Date Carlos Ramesh MD PCP - General Internal Medicine 12/29/20 Shahnaz Simpson NP Nurse Practitioner Nurse Practitioner 03/01/21
--- OUTSIDE RECORDS SUMMARY | 2025-03-11 11:48 | XMS_ITS | Patient Health Record ---
Author Organization [facility] Address [address] [place], [place] [id number] Care Team Providers Care Clam Picker Name Role Phone Carlos Ramesh Unavailable Unavailable Allergies No Known Allergies Reason For Referral No Information Plan Of Treatment No Information Insurance Providers Payer Name Payer Address Payer Phone Subscriber Number Group Number Insured Name Patient Relationship to Insured Coverage Start Date Coverage End Date [facility] [address] [address] [place] [address] [id number] Evelyn iGl Self - patient is the insured
--- OUTSIDE RECORDS SUMMARY | 2025-03-11 11:48 | XMS_ITS | Clinical Summary ---
Author Organization [facility] Address [address] [place] [address] Phone Care Team Providers Care Community Product Specialist Name Role Phone Carlos Ramesh MD Primary Care Provider [phone] Allergies Active Allergy Reactions Criticality Noted Date Comments Regadenoson Anxiety Low 05/21/2021 Gardiner like having a heart attack Medications amitriptyline (ELAVIL) 25 mg Oral tablet Take 1 Tablet by mouth daily. Active SUMAtriptan (IMITREX) 100 mg Oral tablet Take 100 mg by mouth 1 time daily as needed for Migraine. May repeat in 2 hours; max dose 200mg in 24 hours. Active amoxicillin (AMOXIL) 500 mg capsule Take 4 Capsules by mouth. 1 hour prior dentist procedure. Active levothyroxine 112 mcg tablet Take 1 Tablet by mouth daily in the morning. Active lisinopriL (PRINIVIL) 20 mg tablet Take 20 mg by mouth daily. Active nortriptyline (PAMELOR) 75 mg capsule Take 75 mg by mouth daily at bedtime. Active topiramate (TOPAMAX) 50 mg tablet Take 250 mg by mouth daily. For migraines. Active verapamiL (VERELAN) 120 mg Sustained Release 24 hour capsule Take 120 mg by mouth 2 times daily. Active omeprazole (PriLOSEC) 20 mg Capsule, Delayed Release(E.C.) Take 2 Capsules by mouth daily at bedtime. Active acetaminophen (TYLENOL ORAL) Take by mouth. Active IBUPROFEN ORAL Take by mouth. Active fexofenadine (ANA MARIA) 180 mg tablet Take 180 mg by mouth daily. Active sodium chloride (SALINE NASAL BOTH NOSTRIL) Administer 1 [place] in each nostril daily. Active HYDROcodone-jo ann taminophen (NORCO) 5-325 mg tabletIndicatio ns:Failure of spinal cord stimulator, initial encounter Take 1 Tablet by mouth every 4 hours as needed for Pain, Moderate. 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 Immunizations Immunization Administration Dates Next Due (Daio) COVID-19 VACCINE - EMERGENCY USE AUTHORIZATION, AD26,COV2S(PF) 0.5 ML IM SUSP 03/20/2021,08/10/2020 Influenza Seasonal Unspecified Formulation IM Family History Medical History Relation Name Comments Diabetes Brother High Cholesterol Brother Other Brother Spinal Stenosis Leukemia Father No Known Problems Maternal Grandfather No Known Problems Maternal Grandmother Diabetes Mother Hypertension Mother Ovarian Cancer Mother No Known Problems Paternal Grandfather No Known Problems Paternal Grandmother Relation Name Status Comments Brother Father Maternal Grandfather Maternal Grandmother Mother Paternal Grandfather Paternal Grandmother Social History Tobacco Use Types Packs/Day Years Used Date Smoking Tobacco: Never Smokeless Tobacco: Never Alcohol Use Standard Drinks/Week Comments Yes 0 (1 standard drink = 0.6 oz pur e alcohol) SOCIALLY Comments No Sex and Gender Information Value Date Recorded Sex Assigned at Not on file Legal Sex Female 2:20 PM CDT Gender Identity Not on file Sexual Orientation Not on file Last Filed Vital Signs Vital Sign Reading Time Taken Comments Blood Pressure 144/77 08/03/2021 9:38 AM CDT Pulse 80 08/03/2021 9:38 AM CDT Temperature 36.6 C (97.8 F) 08/03/2021 9:34 AM CDT Respiratory Rate 16 07/19/2021 12:25 PM CDT Oxygen Saturation 96% 07/19/2021 12:25 PM CDT Inhaled Oxygen Concentration - - Weight 92.5 kg (204 lb) 08/03/2021 9:34 AM CDT Height 160 cm (5' 3) 08/03/2021 9:34 AM CDT Body Mass Index 36.14 08/03/2021 9:34 AM CDT Plan of Treatment Health Maintenance Due Date Last Done Comments DTAP/TDAP/TD VACCINES (1 - Tdap) 01/20/1972 BREAST CANCER SCREENING 1993 COLORECTAL SCREENING 1998 Colorectal Cancer Screening 1998 FIT-DNA Q 3 years 1998 FIT/FOBT Q 1 year 1998 Flex Sig/CT Colonography Q 5 years 1998 PNEUMOCOCCAL VACCINE 50+ YEA RS (1 of 1 - PCV) 2003 ZOSTER VACCINE (1 of 2) 2003 OSTEOPOROSIS SCREENING 2018 INFLUENZA VACCINE (#1) 2024 03/06/2021 COVID-19 Vaccine (3 - season) 2025, 08/10/2020 RSV VACCINE (60+ or ) (1 - 1-dose 75+ series) 01/20/2028 Medical Devices Implanted Type Area Leather Tanner Device Identifier Shelf Expiration Date Model / Serial / Lot Hemostatic Surgiflo 8ml W/ Thrombin 2994 - [id number] Implanted:Qty : 1 on 07/19/2021 by Mely Hernandez MD at [facility] Hemostatic N/A: Back [employer] [id number] 11/01/2022 2994 / / [id number] Sealant Floseal W/ Adptr 10ml [id number] - [id number] Implanted:Qty : 1 on 11/12/2012 by Mely Hernandez MD at [facility] Sealant N/A: Spine Lumbar BEARD- BIOSCIENCE 02/01/2014 [id number] / / [id number] Gautam Thr-10/17/2013 Implanted: (Quantity not on file) Description:10/2013 & 03/2014 Explanted Type Area Leather Tanner Device Identifier Shelf Expiration Date Model / Serial / Lot Clarence Imjex Bumpy 10083 - [id number] Implanted:Qty: 1 on 11/12/2012 by Mely Hernandez MD at [facility] Explanted:Qty: 1 on 07/19/2021 by Mely Hernandez MD at [facility] Clarence MEDbarcoo- NEUROLOGIC TECH 10/01/2016 [id number] / / [id number] Lead Specify 5-6-5 Kit 23728-52 - [id number] Implanted:Qty: 1 on 11/12/2012 by Mely Hernandez MD at [facility] Explanted:Qty: 1 on 07/19/2021 at [facility] Lead [employer]- NEUROLOGIC TECH 03/13/2016 [id number] / / [id number] Sys Recharge Restore Pat 83279 - [id number] Implanted:Qty: 1 on 11/12/2012 by Mely Hernandez MD at [facility] Explanted:Qty: 1 on 07/19/2021 at [facility] Neuro [employer]- NEUROLOGIC TECH 02/18/2016 03124 / [id number] / Sensor Restore Neurostimulator 12152 - [id number] Implanted:Qty: 1 on 11/12/2012 by Mely Hernandez MD at [facility] Explanted:Qty: 1 on 07/19/2021 at [facility] Neuro [employer] [place] 04/17/2013 3771 4 / [id number] / Pipe Organ Mechanic Apprentice Pat Mystim 57096 - [id number] Implanted:Qty: 1 on 11/12/2012 by Mely Hernandez MD at [facility] Explanted:Qty: 1 on 07/19/2021 by Mely Hernandez MD at [facility] Neuro [employer] NEUROLOGIC PAIN MGMT 58346 / [id number] / Insurance [facility] DUAL COMPLETE PPO [facility] [id number] RX OPTUM RX Member Subscriber Plan / Payer (Ef fective 2020-Present) Name:Evelyn GilAlexandra Relation to Subscriber:Self Name:Evelyn Gil Payer ID:Not on file Group ID:[id number] Type:RX Medicare Part D Address: [address] Advance Directives For more information, please contact: [phone] * Full Code (Latest Code Status on File) Date Activated Date Inactivated Comments 07/19/2021 7:44 AM 07/19/2021 3:03 PM * Full Code Date Activated Date Inactivated Comments 11/12/2012 11:54 AM 11/12/2012 9:20 PM * Full Code Date Activated Date Inactivated Comments 11/12/2012 11:47 AM 11/12/2012 11:54 AM Care Teams Community Product Specialist Relationship Specialty Start Date End Date Carlos Ramesh MD [address] [place] [address] PCP - General Internal Medicine 07/11/21
[2025-03-11 11:52] LABS: Add Urine Microscopic? YES
[2025-03-11 11:53] LABS: Alanine Aminotransferase 21 U/L (6-35); Albumin Level 4.3 g/dL (3.5-5.1); Alkaline Phosphatase 114 U/L (38-126); Amylase 91 U/L (30-110); Anion Gap 10 mmol/L (4-12); Appearance Urine Sl Cloudy (Clear); Aspartate Amino Transferase 25 U/L (14-36); Bilirubin,Total 1.3 mg/dL (0.2-1.3); Blood Urea Nitrogen 31 mg/dL (7-17); CRP 1.5 mg/dL (<1.0); Calcium 8.5 mg/dL (8.4-10.2); Carbon Dioxide 31 mmol/L (22-30); Chloride 102 mmol/L (98-107); Estimated Glomerular Filt Rate 19; Glucose 122 mg/dL (65-110); Lipase 64 U/L (23-300); Magnesium 2.8 mg/dL (1.6-2.3); Osmolality Calculated 303 mOsm/kg (285-295); Potassium 3.8 mmol/L (3.4-5.0); Sodium 143 mmol/L (137-145); Total Protein 7.3 g/dL (6.3-8.2)
== END 2025-03-11 11:05 | disposition home or self-care (01) ==
LOC: CHSHH 11:06
PROVIDERS: PCP Internal Medicine; Visit Provider Internal Medicine
DX: J96.01 Acute respiratory failure with hypoxia (principal); I26.99 Other pulmonary embolism without acute cor pulmonale; S22.010D Wedge compression fracture of first thoracic vertebra, subsequent encounter for fracture with routine healing; I82.403 Acute embolism and thrombosis of unspecified deep veins of lower extremity, bilateral; J18.9 Pneumonia, unspecified organism; N18.2 Chronic kidney disease, stage 2 (mild); K59.03 Drug induced constipation; R73.03 Prediabetes; R30.0 Dysuria; I12.9 Hypertensive chronic kidney disease with stage 1 through stage 4 chronic kidney disease, or unspecified chronic kidney disease
CPT/HCPCS: 36415; 80053; 81001; 82150; 83690; 83735; 85027; 86140; 87086

== ENCOUNTER 2025-03-17 15:58 | Outpatient (NON) | payer MEDICARE, SELFPAY ==
--- OUTSIDE RECORDS SUMMARY | 2025-03-17 16:02 | XMS_ITS | Clinical Summary ---
Author Organization [facility] Address [address] [place] [address] Care Team Providers Care Field Spec Name Role Phone Isaac Shannon MD Primary Care Provider Gian mancuso Source Comments [facility],non-owned Affiliates and Associated Physician Practices is amultiple site organization consisting of ambulatory clinics and hospital sitesin [place], [place], [place] and [place]. This disclosure is being madepursuant to the Care Everywhere program and may not contain all information available regarding this patient. Last updated 18.[facility] Allergies No known active allergies Medications * [...] patient's age to complete this topic Insurance [facility] Care Teams Field Spec Relationship Specialty Start Date End Date Isaac Shannon MD PCP - General Anesthesiology 07/07/13
--- OUTSIDE RECORDS SUMMARY | 2025-03-17 16:03 | XMS_ITS | Clinical Summary ---
Author Organization [facility] Address [address] [place] [address] Care Team Providers Care Kettle Girl Name Role Phone Unavailable Primary Care Provider [...] patient's age to complete this topic Insurance [facility]
--- OUTSIDE RECORDS SUMMARY | 2025-03-17 16:03 | XMS_ITS | Patient Health Record ---
Author Organization [facility] Address [address] [place], [place] [id number] Care Team Providers Care Critical Power Install Technician Name Role Phone Carlos Ramesh Unavailable Unavailable Allergies No Known Allergies Reason For Referral No Information Plan Of Treatment No Information Insurance Providers Payer Name Payer Address Payer Phone Subscriber Number Group Number Insured Name Patient Relationship to Insured Coverage Start Date Coverage End Date [facility] [address] [address] [place] [address] [id number] Evelyn Gil Self - patient is the insured
--- OUTSIDE RECORDS SUMMARY | 2025-03-17 16:03 | XMS_ITS | Clinical Summary ---
Author Organization [facility] Medical Office Building B Address [address] [place] [address] Care Team Providers Care Cooler Room Worker Name Role Phone Carlos Ramesh MD Primary Care Provider [phone] Shahnaz Simpson NP Unavailable [phone] Allergies Active Allergy Reactions Criticality Noted Date Comments Regadenoson Other (See comments),Anxiety Low 05/21/2021 Reaction: MUSCLE WEAK, ACHE, [place] like having a heart attack Medications SUMAtriptan (IMITREX) 100 mg tablet take 1 tablet by oral route once with fluids as early as possible after the onset of a migraine attack;may repeat after 2 hours if headache returns, not to exceed 200mgin 24hrs 0 0 08/17/19 14 Active levothyroxine (SYNTHROID) 112 mcg tablet Take 1 tablet (112 mcg total) 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 Delirium 01/10/2025 Assessment & Plan [...] --1U plt intra-op --Likely post-operative consumptive thrombocytopenia --9/11: 172 --Daily CBC TIFFANI (acute kidney injury) [...] lumbar, and sacral fusion and decompressive laminectomy ([id number]). Operative course complicated by acute blood loss [...] lumbar, and sacral fusion and decompressive laminectomy ([id number]). Operative course complicated by acute blood loss [...] lumbar, and sacral fusion and decompressive laminectomy ([id number]). Operative course complicated by acute blood loss anemia and acute kidney injury. - Surgical post-operative management per primary team. Assessment & Plan (01/14/2025 4:41 PM CDT): --s/p [id number] fusion and decompressive laminectomy on 01/06, closed [...] Type Department Care Team Description 02/16/[address] [facility] Medicine Orthopaedic Surgery [address] [place] [phone] Killian Dumont MD 02/02/2025 1:20 PM CDT Office Visit [facility] Medicine Orthopaedic Surgery [address] [facility] 6th [place] [address] [place] [address] Killian Dumont MD Fusion of spine of lumbar region; Flatback syndrome of lumbar region; Other form of scoliosis of lumbar spine 02/02/2025 12:55 PM CDT - 02/02/2025 11:59 PM CDT Hospital Encounter [facility] [address] [place] [address] Killian Dumont MD Fusion of spine of lumbar region; Flatback syndrome of lumbar region; Other form of scoliosis of lumbar spine Discharge Disposition: Discharge to home or self care 02/02/2025 Telephone [facility] Home Care Services [address] [facility] [address] [place] [phone] Unknown, Notinfile 01/21/2025 Telephone [facility] Orthopaedic Surgery [address] [facility] Medical Office Building [address] [place] [phone] Killian Dumont MD 01/12/2025 8:45 AM CDT Ancillary Procedure [facility] Vascular Lab IP [address] [facility] [address] [place] [address] 01/06/2025 7:30 AM CDT - 01/06/2025 7:00 PM CDT Surgery [facility] Operating Room 1 [place] [phone] Killian Dumont MD FUSION DECOMPRESSION LAMINECTOMY WITH INSTRUMENTATION - Medtronic- Revision instrumented posterior spine fusion W11-phzowx/ilium, L2-L3 laminectomy/foraminot michael, L4-L5, L5-S1 PCO,, autograft, allograft, and bone morphogenetic protein- cut to close 9 hours 01/06/2025 7:29 AM CDT Anesthesia Event [facility] Operating Room 1 [place] [address] Bobby House MD Montgomery, Andrea J., NP 01/06/2025 5:48 AM CDT - 01/14/2025 6:35 PM CDT Hospital Encounter [facility] 1 [place] [phone] Killian Dumont MD Postoperative pain (Primary Dx); S/P lumbar spinal fusion; MOISÉS (obstructive sleep apnea); Flatback syndrome of lumbar region [M40.36] Discharge Disposition: Discharge to SNF 01/05/2025 7:39 AM CDT - 01/05/2025 11:59 PM CDT Hospital En[facility] [place] [address] Killian Dumont MD Flatback syndrome of lumbar region; Other form of scoliosis of lumbar spine Discharge Disposition: Discharge to home or self care 12/30/2024 Telephone [facility] Radiology 1 [place] [address] Shannan Wynn RN 12/28/2024 8:15 AM CDT - 12/28/2024 11:59 PM CDT Hospital Encounter [facility] - Imaging [address] [place] [phone] Fusion of lumbar spine Discharge Disposition: Discharge to home or self care 12/28/2024 8:00 AM CDT - 12/28/2024 11:59 PM CDT Hospital Encounter [facility] [address] [place] [phone] Fusion of spine of lumbar region; Flatback syndrome of lumbar region; Other form of scoliosis of lumbar spine; Lumbar pain Discharge Disposition: Discharge to home or self care 12/27/2024 12:00 PM CDT Clinical Support [facility] Orthopaedic Surgery [address] [facility] Medical Office Building [address] [place] [address] Rae Blandon NP Spinal stenosis, lumbar region, with neurogenic claudication (Primary Dx); BMI 34.0-34.9,adult 12/22/2024 1:30 PM CDT Pre-Admission Testing [facility] Center for Preoperative Assessment and Planning [facility] [address] [place] [address] Preoperative testing (Primary Dx); Flatback syndrome; Vitamin D deficiency; Other abnormal glucose 12/22/2024 11:00 AM CDT Office Visit [facility] Orthopaedic Surgery [address] [facility] 6th [place] [address] [place] [address] Killian Dumont MD Fusion of spine of lumbar region (Primary Dx); Flatback syndrome of lumbar region; Other form of scoliosis of lumbar spine 12/22/2024 10:30 AM CDT - 12/22/2024 11:59 PM CDT Hospital Encounter [facility] [address] [place] [address] Killian Dumont MD Fusion of spine of lumbar region; Flatback syndrome of lumbar region; Other form of scoliosis of lumbar spine Discharge Disposition: Discharge to home or self care 12/22/2024 Documentation [facility] Orthopaedic Surgery [address] [place] [address] Office Building [address] [place] [phone] Francheska Zavala RN 12/21/2024 Orders Only [facility] Orthopaedic Surgery [address] [place] [address] 4 [address] [place] [phone] Killian Dumont MD Flatback syndrome of lumbar region (Primary Dx); Other form of scoliosis of lumbar spine 12/20/2024 12:15 PM CDT - 12/20/2024 11:59 PM CDT Hospital Encounter [facility] [address] [place] [address] Fusion of spine of lumbar region; Flatback syndrome of lumbar region; Other form of scoliosis of lumbar spine Discharge Disposition: Discharge to home or self care 12/20/2024 12:15 PM CDT - 12/20/2024 11:59 PM CDT Hospital Encounter [facility] [address] [place] [address] Fusion of spine of lumbar region; Flatback syndrome of lumbar region; Other form of scoliosis of lumbar spine Discharge Disposition: Discharge to home or self care 12/20/2024 12:14 PM CDT - 12/20/2024 11:59 PM CDT Hospital Encounter [facility] [address] [place] [address] Fusion of spine of lumbar region; Flatback syndrome of lumbar region; Other form of scoliosis of lumbar spine Discharge Disposition: Discharge to home or self care 12/17/2024 Telephone [facility] 1 [place] [address] Thierry Zuniga from Last 3 Months Surgical [...] on file Legal Sex 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 Gender Identity Female 01/01/2021 11:17 AM CDT [...] Discontinued 02/02/2013 Medical Devices Implanted Type Area Bung Remover Device Identifier Shelf Expiration Date Model / Serial / Lot Allosource Canpac Nonpurge Frozen Graft 25cc Bone [id number] - [id number] Implanted:Qty: 1 on 10/08/2022 by Killian Dumont MD at [facility] N/A: Back Allosource 12/21/2026 [id number] / / [id number] Nuvasive Inc Reline 5.5mm Lock Open Tulip Spine Screw Bone Nonsterile [id number] - [id number] Implanted:Qty: 6 on 10/08/2022 by Killian Dumont MD at [facility] N/A: Back Nuvasive Inc [id number] / / Nuvasive Inc Reline-O 6.5mm 45mm Polyaxial Spine 2s Screw Bone Nonsterile [id number] - [id number] Implanted:Qty: 2 on 10/08/2022 by Killian Dumont MD at [facility] N/A: Back Nuvasive Inc [id number] / / Nuvasive Inc Reline-O 7.5mm 45mm Polyaxial Spine 2s Screw Bone Nonsterile [id number] - [id number] Implanted:Qty: 4 on 10/08/2022 by Killian Dumont MD at [facility] N/A: Back Nuvasive Inc [id number] / / Nuvasive Inc Brett Spinal Lordotic Reline 5.5x70mm [place] Chromium [id number] - [id number] Implanted:Qty: 1 on 10/08/2022 by Killian Dumont MD at [facility] N/A: Back Nuvasive Inc [id number] / / Nuvasive Inc Brett Spinal Lordotic Reline 5.5x75mm [place] Chromium [id number] - [id number] Implanted:Qty: 1 on 10/08/2022 by Killian Dumont MD at [facility] N/A: Back Nuvasive Inc [id number] / / Medtronic Inc Screw Spinal Posterior Lumbar Multiaxial Solid Cd Horizon Modulex 5.5/6.0mm Stainless Steel [id number] - [id number] Implanted:Qty: 1 on 01/06/2025 by Killian Dumont MD at [facility] Medtronic Inc [id number] / / Medtronic Inc Screw Spinal Posterior Lumbar Multiaxial Solid Cd Horizon Modulex 5.5/6.0mm Stainless Steel [id number] - [id number] Implanted:Qty: 1 on 01/06/2025 by Killian Dumont MD at [facility] Medtronic Inc 02/16/2029 [id number] / / Medtronic Inc Screw Spinal Posterior Lumbar Multiaxial Solid Cd Horizon Modulex 5.5/6.0mm Stainless Steel [id number] - [id number] Implanted:Qty: 1 on 01/06/2025 by Killian Dumont MD at [facility] Medtronic Inc [id number] / / Medtronic Inc Screw Spinal Posterior Lumbar Multiaxial Solid Cd Horizon Modulex 5.5/6.0mm Mas Stainless Steel [id number] - [id number] Implanted:Qty: 1 on 01/06/2025 by Killian Dumont MD at [facility] Medtronic Inc 09/06/2029 [id number] / / [id number] Medtronic Inc Screw Spinal Posterior Lumbar Multiaxial Solid Cd Horizon Modulex 5.5/6.0mm Mas Stainless Steel [id number] - [id number] Implanted:Qty: 1 on 01/06/2025 by Killian Dumont MD at [facility] Medtronic Inc 09/10/2029 [id number] / / [id number] [employer] Frozen 1-4mm Graft 60ml Bone Cancellous [id number] - [id number] - [id number] Implanted:Qty: 1 on 01/06/2025 by Killian Dumont MD at [facility] [employer] [id number] 07/22/2029 [id number] / [id number] / Medtronic Inc Kit Graft Bone Sponge Xlg Infuse 8cc Granules [id number] - [id number] Implanted:Qty: 2 on 01/06/2025 by Killian Dumont MD at [facility] Medtronic Inc 11/02/2025 [id number] / / Medtronic Inc Unid Exp [id number] 5.5 Cc Brett 4upl [id number] - [id number] Implanted:Qty: 2 on 01/06/2025 by Killian Dumont MD at [facility] Medtronic Inc [id number] / / Medtronic Inc Shank [id number] Mdx Osteogrip 6.5x45 [id number] - [id number] Implanted:Qty: 5 on 01/06/2025 by Killian Dumont MD at [facility] Medtronic Inc [id number] / / Medtronic Inc Screw Spinal 7.5x50mm Cd Horizon Osteogrip Thread Nonstrl [id number] - [id number] Implanted:Qty: 4 on 01/06/2025 by Killian Dumont MD at [facility] Medtronic Inc [id number] / / Medtronic Inc Shank Mdx Osteogrip 7.5x45mm Nonsterile [id number] - [id number] Implanted:Qty: 2 on 01/06/2025 by Killian Dumont MD at [facility] Medtronic Inc [id number] / / Medtronic Inc 9.5mm 80mm Multiaxial Cannulated Thoracolumbar Screw Bone [id number] - [id number] Implanted:Qty: 1 on 01/06/2025 by Killian Dumont MD at [facility] Medtronic Inc [id number] / / Medtronic Inc 9.5mm 90mm Multiaxial Cannulated Thoracolumbar Screw Bone [id number] - [id number] Implanted:Qty: 1 on 01/06/2025 by Killian Dumont MD at [facility] Medtronic Inc [id number] / / Medtronic Inc Cd Horizon Break Off Spinal Screw Set Titanium Nonsterile 5.5 Mm [id number] - [id number] Implanted:Qty: 2 on 01/06/2025 by Killian Dumont MD at [facility] Medtronic Inc [id number] / / Medtronic Inc Screw Spinal Posterior Lumbar Multiaxial Solid Cd Horizon Modulex 5.5/6.0mm Mas Stainless Steel [id number] - [id number] Implanted:Qty: 1 on 01/06/2025 by Killian Dumont MD at [facility] Medtronic Inc [id number] / / Medtronic Inc Cd Horizon 5.5mm 500mm Line Straight Brett Spinal Titanium [id number] - [id number] Implanted:Qty: 1 on 01/06/2025 by Killian Dumont MD at [facility] Medtronic Inc [id number] / / Medtronic Inc Screw Spinal Biased Multi-Axial Tulips Double Pack Heads Stainless Steel Cd Horizon Modulex Sterile [id number] - [id number] Implanted:Qty: 2 on 01/06/2025 by Killian Dumont MD at [facility] Medtronic Inc [id number] / / Medtronic Inc Screw Spinal 6.5x45mm Multiaxial Drmas Tulip Self-Tapping Locking Titanium Cd Horizon Modulex Sterile [id number] - [id number] Implanted:Qty: 4 on 01/06/2025 by Killian Dumont MD at [facility] Medtronic Inc [id number] / / Medtronic Inc Screw Spinal Pedicle Dual Thread Solid Cd Horizon Modulex 6.5x40mm [id number] - [id number] Implanted:Qty: 5 on 01/06/2025 by Killian Dumont MD at [facility] N/A: Thoracic -Sacral Spine Medtronic Inc [id number] / / Medtronic Inc Screw Spinal Posterior Lumbar Multiaxial Solid Cd Horizon Modulex 5.5/6.0mm Mas Stainless Steel [id number] - [id number] Implanted:Qty: 1 on 01/06/2025 by Killian Dumont MD at [facility] Medtronic Inc 09/06/2029 [id number] / / Medtronic Inc Screw Spinal Posterior Lumbar Multiaxial Solid Cd Horizon Modulex 5.5/6.0mm Stainless Steel [id number] - [id number] Implanted:Qty: 1 on 01/06/2025 by Killian Dumont MD at [facility] Medtronic Inc 11/02/2029 [id number] / / Medtronic Inc Screw Spinal Posterior Lumbar Multiaxial Solid Cd Horizon Modulex 5.5/6.0mm Stainless Steel [id number] - [id number] Implanted:Qty: 1 on 01/06/2025 by Killian Dumont MD at [facility] Medtronic Inc [id number] / / Procedures Procedure Name Priority Date/Time [...] VIEW IP Routine 01/06/2025 11:17 AM CDT MN AN PROCEDURE PLACEHOLDER Routine 01/06/2025 10:49 AM CDT MN AN PROCEDURE PLACEHOLDER Routine 01/06/2025 10:48 AM CDT MN AN PROCEDURE PLACEHOLDER Routine 01/06/2025 10:47 AM CDT PREPARE PLASMA STAT 01/06/2025 9:56 AM CDT PREPARE RBC STAT 01/06/2025 9:56 AM CDT MN AN PROCEDURE PLACEHOLDER Routine 01/06/2025 9:47 AM CDT MN AN ELECTIVE ENDOTRACHEAL AIRWAY Routine 01/06/2025 9:47 [...] Ottoniel via phone call cell saver ID- [id number]- DMF Special Needs Pro-Flat Rock table, cell saver, fluoroscopy, microscope, irrigating bipolar, Reese Pi drill, Medtronic instrumentation, Allosource frozen graft chips, has in Nuvasive Reline to be removedcell saver ID- [id number] SPINAL CORD MONITORING 01/06/2025 7:35 AM CDT Flatback syndrome Case Notes 01/05@1322- Per Josue via email office needs to edit case - DMF 01/05@1033- Per Francheska via email office needs to edit case - DMF 11/01@1040- Per Ottoniel via phone call cell saver ID- [id number]- DMF Special Needs Pro-Flat Rock table, cell saver, fluoroscopy, microscope, irrigating bipolar, Reese Pi drill, Medtronic instrumentation, Allosource frozen graft chips, has in Nuvasive Reline to be removedcell saver ID- [id number] OSTEOTOMY POSTERIOR SPINAL 01/06/2025 7:35 AM CDT Flatback syndrome Case Notes 01/05@1322- Per Josue via email office needs to edit case - DMF 01/05@1033- Per Francheska via email office needs to edit case - DMF 11/01@1040- Per Ottoniel via phone call cell saver ID- [id number]- DMF Special Needs Pro-Flat Rock table, cell saver, fluoroscopy, microscope, irrigating bipolar, Reese Pi drill, Medtronic instrumentation, Allosource frozen graft chips, has in Nuvasive Reline to be removedcell saver ID- [id number] REMOVAL HARDWARE SPINE 01/06/2025 7:35 AM CDT Flatback syndrome Case Notes 01/05@1322- Per Josue via email office needs to edit case - DMF 01/05@1033- Per Francheska via email office needs to edit case - DMF 11/01@1040- Per Ottoniel via phone call cell saver ID- [id number]- [facility] Special Needs Pro-Flat Rock table, cell saver, fluoroscopy, microscope, irrigating bipolar, Reese Pi drill, Medtronic instrumentation, Allosource frozen graft chips, has in Nuvasive Reline to be removedcell saver ID- [id number] FUSION DECOMPRESSION LAMINECTOMY WITH INSTRUMENTATION - MEDTRONIC SOLERA 01/06/2025 7:35 AM CDT Flatback syndrome Case Notes 01/05@1322- Per Josue via email office needs to edit case - DMF 01/05@1033- Per Francheska via email office needs to edit case - DMF 11/01@1040- Per Ottoniel via phone call cell saver ID- [id number]- [facility] Special Needs Pro-Flat Rock table, cell saver, fluoroscopy, microscope, irrigating bipolar, Vikas Pi drill, Medtronic instrumentation, Allosource frozen graft chips, has in Nuvasive Reline to be removedcell saver ID- [id number] TYPE AND SCREEN STAT 01/06/2025 6:50 AM [...] MATEUS CE Final Result Performing Organization Address City/State/[facility] Co ut Phone Number [facility] One [facility] [place] [address] * XR Scoliosis Ap and Lateral (01/14/2025 [...] by: Jan Mathew MD Goyo Gallo [employer] IMG XR PROCEDURES Fi nal Result * POCT glucose (01/14/2025 8:09 AM CDT) Pathologist [facility] Glucose, POC 111 70 - 199 mg/dL Blood 01/14/2025 8:09 AM CDT 01/14/2025 8:09 AM CDT Killian Dumont MD LAB POCT ORDERABLES - MATEUS CE Final Result [facility] One [facility] Department [place] [address] * (ABNORMAL) eGFR (01/13/2025 8:48 PM CDT) eGFR 38(L) >=60 mL/min/1. 73 m2 Comment: [...] MD LAB BLOOD ORDERABLES Final Result [facility] One [facility] Department [place] [address] * (ABNORMAL) CBC without differential (01/13/2025 8:48 PM CDT) WBC 13.46(H) 3.80 - 9.90 K/cumm Hgb 9.2(L) 11.9 - 15.5 g/dL [facility] Hct 28.1(L) 35.6 - 45.5 % [facility] Plt 172 150 - 400 K/cumm [facility] MPV 9.0(L) 9.1 - 12.3 fL [facility] RBC 3.11(L) 3.90 - 5.20 M/cumm [facility] MCV 90.4 81.3 - 96.4 fL [facility] MCH 29.6 27.1 - 33.3 pg [facility] MCHC 32.7 32.3 - 35.7 g/dL [facility] RDW CV 17.4(H) 11.1 - 14.9 % [facility] RDW SD 55.6(H) 35.7 - 48.1 fL [facility] NRBC abs 0.03(H) 0.00 - 0.01 K/cumm [facility] Blood 01/13/2025 8:48 PM CDT 01/13/2025 9:28 PM CDT Killian Dumont MD LAB BLOOD ORDERABLES Final Result Performing Organization Address [facility] Co de Phone Number [facility] [place] [address] * (ABNORMAL) Phosphorus (01/13/2025 8:48 PM CDT) Pathologist [facility] Phosphorus, pl 2.2(L) 2.3 - 4.5 mg/dL Blood 01/13/2025 8:48 PM CDT 01/13/2025 9:28 PM CDT Killian Dumont MD LAB BLOOD ORDERABLES Final Result Performing Organization Address [facility] Co de Phone Number [facility] [place] [address] * (ABNORMAL) Magnesium (01/13/2025 8:48 PM CDT) [facility] Magnesium 2.6(H) 1.4 - 2.5 mg/dL Blood 01/13/2025 8:48 PM CDT 01/13/2025 9:28 PM CDT Killian Dumont MD LAB BLOOD ORDERABLES Final Result Performing Organization Address [facility] Co de Phone Number [facility] [place] [address] * (ABNORMAL) Comprehensive metabolic panel (01/13/2025 8:48 PM CDT) [facility] Sodium 136 135 - 145 mmol/L Potassium, pl 4.4 3.3 - 4.9 mmol/L [facility] Chloride 104 97 - 110 mmol/L [facility] CO2 27 22 - 32 mmol/L [facility] Anion gap 5 2 - 15 mmol/L [facility] BUN 35(H) 6 - 25 mg/dL [facility] Creatinine 1.48(H) 0.60 - 1.10 mg/dL [facility] Glucose 124 70 - 199 mg/dL [facility] Comment: Interpretive Data Fasting glucose >/= [...] Calcium 7.3(L) 8.5 - 10.3 mg/dL [facility] Bilirubin, total 0.4 0.1 - 1.2 mg/dL [facility] Protein, pl 5.8(L) 6.5 - 8.5 g/dL [facility] Albumin 2.9(L) 3.5 - 5.0 g/dL [facility] Alk phos 95 40 - 130 Units/L [facility] ALT 48(H) 7 - 45 Units/L [facility] AST 73(H) 10 - 45 Units/L [facility] Blood 01/13/2025 8:48 PM CDT 01/13/2025 9:28 PM CDT Killian Dumont MD LAB BLOOD ORDERABLES Final Result Performing Organization Address City/[facility]/ZIP Co de Phone Number [facility] One [facility] Department [place] [address] * POCT glucose (01/13/2025 8:36 PM CDT) [facility] Glucose, POC 135 70 - 199 mg/dL Blood 01/13/2025 8:36 PM CDT 01/13/2025 8:36 PM CDT Killian Dumont MD LAB POCT ORDERABLES - MATEUS CE Final Result Performing Organization Address [facility] [place] [address] * POCT glucose (01/13/2025 5:12 PM CDT) Glucose, POC 103 70 - 199 mg/dL Blood 01/13/2025 5:12 PM CDT 01/13/2025 5:12 PM CDT Killian Dumont MD LAB POCT ORDERABLES - MATEUS CE Final Result Performing Organization Address [facility] [place] [address] * POCT glucose (01/13/2025 12:04 PM CDT) Glucose, POC 119 70 - 199 mg/dL Blood 01/13/2025 12:0 4 PM CDT 01/13/2025 12:04 PM CDT Killian Dumont MD LAB POCT ORDERABLES - MATEUS CE Final Result Performing Organization Address City/[facility] Co de Phone Number [facility] [address] [place] [address] * POCT glucose (01/13/2025 7:39 AM CDT) Glucose, POC 174 70 - 199 mg/dL Blood 01/13/2025 7:39 AM CDT 01/13/2025 7:39 AM CDT Killian Dumont MD LAB POCT ORDERABLES - MATEUS CE Final Result Performing Organization Address City/[facility] [place] [address] * POCT glucose (01/12/2025 8:00 PM CDT) Glucose, POC 171 70 - 199 mg/dL Blood 01/12/2025 8:00 PM CDT 01/12/2025 8:00 PM CDT Killian Dumont MD LAB POCT ORDERABLES - AMTEUS CE Final Result Performing Organization Address [facility] Co de Phone Number [facility] [place] [address] * (ABNORMAL) eGFR (01/12/2025 7:52 PM CDT) [facility] eGFR 35(L) >=60 mL/min/1. 73 m2 Comment: [...] 7:52 PM CDT 01/12/2025 8:32 PM CDT us Killian Dumont MD LAB BLOOD ORDERABLES Final Result Performing Organization Address City/[facility]/ZIP Co de Phone Number [facility] [place] [address] * (ABNORMAL) CBC without differential (01/12/2025 7:52 PM CDT) WBC 11.49(H) 3.80 - 9.90 K/cumm Hgb 9.0(L) 11.9 - 15.5 g/dL [facility] Hct 27.8(L) 35.6 - 45.5 % [facility] Plt 142(L) 150 - 400 K/cumm [facility] MPV 10.5 9.1 - 12.3 fL [facility] RBC 3.07(L) 3.90 - 5.20 M/cumm [facility] MCV 90.6 81.3 - 96.4 fL [facility] MCH 29.3 27.1 - 33.3 pg [facility] MCHC 32.4 32.3 - 35.7 g/dL [facility] RDW CV 17.1(H) 11.1 - 14.9 % [facility] RDW SD 55.0(H) 35.7 - 48.1 fL [facility] NRBC abs 0.03(H) 0.00 - 0.01 K/cumm [facility] Blood 01/12/2025 7:52 PM CDT 01/12/2025 8:32 PM CDT Killian Dumont MD LAB BLOOD ORDERABLES Final Result [facility] Department [place] [address] * Phosphorus (01/12/2025 7:52 PM CDT) [facility] Signature Phosphorus, pl 2.6 2.3 - 4.5 mg/dL Blood 01/12/2025 7:52 PM CDT 01/12/2025 8:32 PM CDT Killian Dumont MD LAB BLOOD ORDERABLES Final Result [facility] Department [place] [address] * (ABNORMAL) Magnesium (01/12/2025 7:52 PM CDT) Magnesium 2.8(H) 1.4 - 2.5 mg/dL Blood 01/12/2025 7:52 PM CDT 01/12/2025 8:32 PM CDT Killian Dumont MD LAB BLOOD ORDERABLES Final Result [facility] One [facility] Department [place] [address] * (ABNORMAL) Comprehensive metabolic panel (01/12/2025 7:52 PM CDT) Pathologist [facility] Sodium 137 135 - 145 mmol/L Potassium, pl 4.1 3.3 - 4.9 mmol/L [facility] Chloride 105 97 - 110 mmol/L [facility] CO2 25 22 - 32 mmol/L [facility] Anion gap 7 2 - 15 mmol/L [facility] BUN 42(H) 6 - 25 mg/dL [facility] Creatinine 1.59(H) 0.60 - 1.10 mg/dL [facility] Glucose 155 70 - 199 mg/dL [facility] Comment: Interpretive Data Fasting glucose >/= [...] Calcium 7.2(L) 8.5 - 10.3 mg/dL [facility] Bilirubin, total 0.3 0.1 - 1.2 mg/dL [facility] Protein, pl 5.3(L) 6.5 - 8.5 g/dL [facility] Albumin 2.6(L) 3.5 - 5.0 g/dL [facility] Alk phos 91 40 - 130 Units/L [facility] ALT 64(H) 7 - 45 Units/L [facility] AST 70(H) 10 - 45 Units/L [facility] Blood 01/12/2025 7:52 PM CDT 01/12/2025 8:32 PM CDT Killian Dumont MD LAB BLOOD ORDERABLES Final Result Performing Organization Address [facility] de Phone Number [facility] [address] [place] [address] * POCT glucose (01/12/2025 4:07 PM CDT) Glucose, POC 152 70 - 199 mg/dL Blood 01/12/2025 4:07 PM CDT 01/12/2025 4:07 PM CDT Killian Dumont MD LAB POCT ORDERABLES - MATEUS CE Final Result Performing Organization Address [facility] de Phone Number [facility] [address] [place] [address] * POCT glucose (01/12/2025 12:13 PM CDT) Glucose, POC 162 70 - 199 mg/dL Blood 01/12/2025 12:1 3 PM CDT 01/12/2025 12:13 PM CDT Killian Dumont MD LAB POCT ORDERABLES - MATEUS CE Final Result Performing Organization Address [facility] de Phone Number [facility] [address] [place] [address] * US Vein Duplex Lower Extremity Bilateral Complete (01/12/2025 12:01 PM CDT) Anatomical Region Laterality Modality Vascular Bilateral Ultrasound 01/12/2025 10:2 3 AM CDT Narrative 01/12/2025 4:45 PM CDT [facility] - Department of Vascular Surgery, Vascular Laboratory [address] [place] [id number] Lower Extremity Venous Ultrasound Report Patient Name: EVELYN GIL : 1955 (69y 11m) Study Date: 01/12/2025 10:23:13 AM Sex: F Tech: Location: [id number] Ref Provider: INGA RUSS Quality: Adequate Order Provider: INGA RUSS PROCEDURES: Vascular Report: Venous Duplex imaging was performed bilaterally in the lower extremities. The common femoral, femoral, popliteal, posterior tibial, peroneal veins were evaluated for patency, spontaneity and phasicity with Doppler, compression and augmentation maneuvers. Great saphenous vein proximal at the junction was evaluated with compression maneuvers. INDICATIONS: Pain swelling - FINDINGS: Performing Food Runner: Noble SOLORIO RVT. Right: Duplex scan reveals [...] lumbar, and sacral fusion and decompressive laminectomy ([id number]). Operative course complicated by acute blood loss [...] Procedure Note Bonilla Serrano MD - 01/12/2025 [facility] - Department of Vascular Surgery,Vascular Laboratory [address] [place] [id number] Lower Extremity Venous Ultrasound Report Patient Name: EVELYN GIL : 1955 (69y 11m) Study Date: 01/12/2025 10:23:13 AM Sex: F Tech: [id number] Location: [id number] Ref Provider: INGA RUSS Quality: Adequate Order Provider: INGA RUSS PROCEDURES: Vascular Report: Venous Duplex imaging was performed bilaterally in the lower extremities.The common femoral, femoral, popliteal, posterior tibial, peroneal veins wereevaluated for patency, spontaneity and phasicity with Doppler, compression and augmentationmaneuvers. Great saphenous vein proximal at the junction was evaluated with compressionmaneuvers. INDICATIONS: Pain swelling - FINDINGS: Performing Food Runner: Noble SOLORIO, RVT. Right: Duplex scan reveals [...] thoracic, lumbar, and sacral fusion and decompressive laminectomy([id number]). Operative course complicated by acute blood loss [...] Serrano MD FACS 01/12/2025 4:04:55 PM CDT us Inga Russ [employer] [employer] IMG US PROCEDURES Final Result * POCT glucose (01/12/2025 8:37 AM CDT) Glucose, POC 126 70 - 199 mg/dL Blood 01/12/2025 8:37 AM CDT 01/12/2025 8:37 AM CDT us Killian Dumont MD LAB POCT ORDERABLES - MATEUS CE Final Result [facility] One [facility] Department [place] [address] * (ABNORMAL) eGFR (01/11/2025 9:44 PM CDT) eGFR 31(L) >=60 mL/min/1. 73 m2 Comment: [...] BLOOD ORDERABLES Final Result Performing Organization Address City/[facility]/ZIP Co de Phone Number [facility] One [facility] Department [place] [address] * (ABNORMAL) CBC without differential (01/11/2025 9:44 PM CDT) WBC 10.05(H) 3.80 - 9.90 K/cumm Hgb 8.8(L) 11.9 - 15.5 g/dL [facility] Hct 27.2(L) 35.6 - 45.5 % [facility] Plt 103(L) 150 - 400 K/cumm [facility] MPV 9.9 9.1 - 12.3 fL [facility] RBC 3.01(L) 3.90 - 5.20 M/cumm [facility] MCV 90.4 81.3 - 96.4 fL [facility] MCH 29.2 27.1 - 33.3 pg [facility] MCHC 32.4 32.3 - 35.7 g/dL [facility] RDW CV 17.2(H) 11.1 - 14.9 % [facility] RDW SD 55.7(H) 35.7 - 48.1 fL [facility] NRBC abs 0.03(H) 0.00 - 0.01 K/cumm [facility] Blood 01/11/2025 9:44 PM CDT 01/11/2025 10:07 PM CDT Killian Dumont MD LAB BLOOD ORDERABLES Final Result [facility] [place] [address] * T4, free (01/11/2025 9:44 PM CDT) [facility] Free T4 0.90 0.90 - 1.70 ng/dL Blood 01/11/2025 9:44 PM CDT 01/11/2025 10:06 PM CDT Killian Dumont MD LAB BLOOD ORDERABLES Final Result Performing Organization Address City/State/[facility] [place] [address] * Phosphorus (01/11/2025 9:44 PM CDT) [facility] Phosphorus, pl 2.3 2.3 - 4.5 mg/dL Blood 01/11/2025 9:44 PM CDT 01/11/2025 10:06 PM CDT Killian Dumont MD LAB BLOOD ORDERABLES Final Result Performing Organization Address City/[facility] Co de Phone Number [facility] [address] [place] [address] * (ABNORMAL) Magnesium (01/11/2025 9:44 PM CDT) [facility] Magnesium 2.7(H) 1.4 - 2.5 mg/dL Blood 01/11/2025 9:44 PM CDT 01/11/2025 10:06 PM CDT Killian Dumont MD LAB BLOOD ORDERABLES Final Result Performing Organization Address City/[facility]/ZIP Co de Phone Number [facility] [place] [address] * (ABNORMAL) Comprehensive metabolic panel (01/11/2025 9:44 PM CDT) [facility] Signature Sodium 138 135 - 145 mmol/L Potassium, pl 4.0 3.3 - 4.9 mmol/L [facility] Chloride 107 97 - 110 mmol/L [facility] CO2 26 22 - 32 mmol/L [facility] Anion gap 5 2 - 15 mmol/L [facility] BUN 52(H) 6 - 25 mg/dL [facility] Creatinine 1.73(H) 0.60 - 1.10 mg/dL [facility] Glucose 129 70 - 199 mg/dL [facility] Comment: Interpretive Data Fasting glucose >/= [...] Calcium 7.2(L) 8.5 - 10.3 mg/dL [facility] Bilirubin, total 0.4 0.1 - 1.2 mg/dL [facility] Protein, pl 5.5(L) 6.5 - 8.5 g/dL [facility] Albumin 2.7(L) 3.5 - 5.0 g/dL [facility] Alk phos 89 40 - 130 Units/L [facility] ALT 48(H) 7 - 45 Units/L [facility] AST 65(H) 10 - 45 Units/L [facility] Blood 01/11/2025 9:44 PM CDT 01/11/2025 10:06 PM CDT us Killian Dumont MD LAB BLOOD ORDERABLES Final Result [facility] Department [place] [address] * POCT glucose (01/11/2025 9:43 PM CDT) Glucose, POC 135 70 - 199 mg/dL Blood 01/11/2025 9:43 PM CDT 01/11/2025 9:43 PM CDT Killian Dumont MD LAB POCT ORDERABLES - MATEUS CE Final Result Performing Organization Address [facility] Co de Phone Number [facility] [address] [place] [address] * POCT glucose (01/11/2025 5:10 PM CDT) [facility] Signature Glucose, POC 134 70 - 199 mg/dL Blood 01/11/2025 5:10 PM CDT 01/11/2025 5:10 PM CDT Killian Dumont MD LAB POCT ORDERABLES - MATEUS CE Final Result Performing Organization Address City/[facility] Co de Phone Number [facility] [address] [place] [address] * POCT glucose (01/11/2025 12:39 PM CDT) [facility] Glucose, POC 161 70 - 199 mg/dL Blood 01/11/2025 12:3 9 PM CDT 01/11/2025 12:39 PM CDT Killian Dumont MD LAB POCT ORDERABLES - MATEUS CE Final Result Performing Organization Address City/[facility] Co de Phone Number [facility] [address] [place] [address] * HIV 1/2 Antibody plus p24 Antigen Blood (01/11/2025 12:30 PM CDT) [facility] HIV 1/2 ab + p24 ag Nonreactive [...] ENERAL ORDERABLES Final Result Performing Organization Address City/[facility] Co de Phone Number [facility] [address] [place] [address] * RPR Blood (01/11/2025 12:30 PM CDT) RPR Nonreactive Nonreactive Blood 01/11/2025 12:3 0 PM CDT 01/11/2025 1:07 PM CDT Julee Yoder NP LAB MICROBIOLOGY - G ENERAL ORDERABLES Final Result Performing Organization Address [facility] de Phone Number [facility] [address] [place] [address] * (ABNORMAL) TSH (01/11/2025 12:30 PM CDT) Thyroid Stimulating Hormone 4.73(H) 0.30 - 4.20 mcIUnit/mL Blood 01/11/2025 12:3 0 PM CDT 01/11/2025 1:05 PM CDT Julee Yoder NP LAB BLOOD ORDERABLES Final Result Performing Organization Address City/[facility] de Phone Number [facility] [address] [place] [address] * Vitamin B12 (01/11/2025 12:30 PM CDT) Vitamin B12 971 230 - 1,250 pg/mL Blood 01/11/2025 12:3 0 PM CDT 01/11/2025 1:05 PM CDT us Julee Yoder NP LAB BLOOD ORDERABLES Final Result [facility] [place] [address] * POCT glucose (01/11/2025 7:14 AM CDT) Glucose, POC 186 70 - 199 mg/dL Blood 01/11/2025 7:14 AM CDT 01/11/2025 7:14 AM CDT us Killian Dumont MD LAB POCT ORDERABLES - MATEUS CE Final Result Performing Organization Address [facility] Co de Phone Number [facility] [place] [address] * (ABNORMAL) eGFR (01/10/2025 9:35 PM CDT) eGFR 28(L) >=60 mL/min/1. 73 m2 Comment: [...] BLOOD ORDERABLES Final Result Performing Organization Address City/[facility]/ZIP Co de Phone Number [facility] Department [place] [address] * (ABNORMAL) CBC without differential (01/10/2025 9:35 PM CDT) WBC 10.71(H) 3.80 - 9.90 K/cumm Hgb 8.9(L) 11.9 - 15.5 g/dL [facility] Hct 27.3(L) 35.6 - 45.5 % [facility] Plt 83(L) 150 - 400 K/cumm [facility] MPV 10.1 9.1 - 12.3 fL [facility] RBC 3.04(L) 3.90 - 5.20 M/cumm [facility] MCV 89.8 81.3 - 96.4 fL [facility] MCH 29.3 27.1 - 33.3 pg [facility] MCHC 32.6 32.3 - 35.7 g/dL [facility] RDW CV 17.5(H) 11.1 - 14.9 % [facility] RDW SD 56.6(H) 35.7 - 48.1 fL [facility] NRBC abs 0.02(H) 0.00 - 0.01 K/cumm [facility] Blood 01/10/2025 9:35 PM CDT 01/10/2025 10:05 PM CDT Killian Dumont MD LAB BLOOD ORDERABLES Final Result [facility] Department [place] [address] * Phosphorus (01/10/2025 9:35 PM CDT) Phosphorus, pl 3.1 2.3 - 4.5 mg/dL Blood 01/10/2025 9:35 PM CDT 01/10/2025 10:04 PM CDT Killian Dumont MD LAB BLOOD ORDERABLES Final Result Performing Organization Address City/[facility]/ZIP Co de Phone Number [facility] [place] [address] * (ABNORMAL) Magnesium (01/10/2025 9:35 PM CDT) Pathologist [facility] Magnesium 3.0(H) 1.4 - 2.5 mg/dL Blood 01/10/2025 9:35 PM CDT 01/10/2025 10:04 PM CDT Killian Dumont MD LAB BLOOD ORDERABLES Final Result Performing Organization Address [facility] de Phone Number [facility] [place] [address] * (ABNORMAL) Comprehensive metabolic panel (01/10/2025 9:35 PM CDT) [facility] Sodium 142 135 - 145 mmol/L Potassium, pl 4.5 3.3 - 4.9 mmol/L [facility] Chloride 109 97 - 110 mmol/L [facility] CO2 25 22 - 32 mmol/L [facility] Anion gap 8 2 - 15 mmol/L [facility] BUN 58(H) 6 - 25 mg/dL [facility] Creatinine 1.89(H) 0.60 - 1.10 mg/dL [facility] Glucose 118 70 - 199 mg/dL [facility] Comment: Interpretive Data Fasting glucose >/= [...] Calcium 7.5(L) 8.5 - 10.3 mg/dL [facility] Bilirubin, total 0.4 0.1 - 1.2 mg/dL [facility] Protein, pl 5.6(L) 6.5 - 8.5 g/dL [facility] Albumin 2.8(L) 3.5 - 5.0 g/dL [facility] Alk phos 85 40 - 130 Units/L [facility] ALT 65(H) 7 - 45 Units/L [facility] AST 96(H) 10 - 45 Units/L [facility] Blood 01/10/2025 9:35 PM CDT 01/10/2025 10:04 PM CDT Killian Dumont MD LAB BLOOD ORDERABLES Final Result Performing Organization Address City/[facility]/ZIP Co de Phone Number [facility] Department of Mobile [facility] [address] [place] [address] * POCT glucose (01/10/2025 9:08 PM CDT) Glucose, POC 124 70 - 199 mg/dL Blood 01/10/2025 9:08 PM CDT 01/10/2025 9:08 PM CDT Killian Dumont MD LAB POCT ORDERABLES - MATEUS CE Final Result [facility] [address] [place] [address] * (ABNORMAL) Hemoglobin and hematocrit (01/10/2025 6:44 PM CDT) Hgb 8.8(L) 11.9 - 15.5 g/dL Hct 27.0(L) 35.6 - 45.5 % [facility] Blood 01/10/2025 6:44 PM CDT 01/10/2025 7:04 PM CDT Riley Reyes MD LAB BLOOD ORDERABLES Renee l Result Performing Organization Address [facility] Co de Phone Number [facility] [place] [address] * Transfuse RBC (01/10/2025 5:53 PM CDT) Blood Julee Yoder [employer] BLOOD TRANSFUSION OR DERABLES Edited Result - Final Performing Organization Address [facility] Co de Phone Number [facility] [place] [address] * POCT glucose (01/10/2025 3:59 PM CDT) Glucose, POC 139 70 - 199 mg/dL Blood 01/10/2025 3:59 PM CDT 01/10/2025 3:59 PM CDT Killian Dumont MD LAB POCT ORDERABLES - MATEUS CE Final Result Performing Organization Address [facility] [place] [address] * (ABNORMAL) Urinalysis reflex to microscopic and culture Urine (01/10/2025 12:45 PM CDT) Color, ur Yellow Yellow Clarity, ur Cloudy(A) Clear [facility] Specific gravity, ur 1.021 1.003 - 1.030 [facility] pH, urine 5.5 [facility] Comment: Interpretive Data U rine pH is affected by diet, medications, systemic acid-base disturbances, and renal tubular function. pH may affect urinary stone formation. For example, urine pH below 6.0 may help reduce the tendency for calcium phosphate stones and pH greater than 6.0 may reduce the tendency for uric acid stone formation. Source: [facility] 7 Current Interpretive Data was last revised on 2017 Protein, ur ql 1+(A) Negative [facility] Glucose, ur ql Negative Negative [facility] Ketones, ur Negative Negative [facility] Bilirubin, ur Negative Negative [facility] Blood, ur 3+(A) Negative [facility] Urobilinogen, ur <2.0 <2.0 mg/dL [facility] Nitrite, ur Negative Negative [facility] Leukocyte esterase, ur Negative Negative [facility] UA reflex comment Reflex to microscopic UA will be performed. [facility] Urine 01/10/2025 12:4 5 PM CDT 01/10/2025 1:01 PM CDT Killian Dumont MD LAB MICROBIOLOGY - GENERAL ORDERABLES Final Result Performing Organization Address City/[facility]/ZIP Co de Phone Number [facility] Department [place] [address] * Urea nitrogen, urine, random (01/10/2025 12:45 PM CDT) Urea nitrogen, ur 835 mg/dL Comment: Interpretive Data No reference range established. Current interpretive data was last revised 2018. Urine 01/10/2025 12:4 5 PM CDT 01/10/2025 1:05 PM CDT Killian Dumont MD LAB URINE ORDERABLES Final Result Performing Organization Address City/[facility] Co de Phone Number [facility] Department [place] [address] * (ABNORMAL) Albumin Creatinine Ratio, Urine (01/10/2025 12:45 PM CDT) Albumin Ur 48.0 mg/L Comment: Interpretive Data No reference range established. Current interpretive data was last revised 2018. Creatinine Ur 112.3 mg/dL [facility] Comment: Interpretive Data No reference range established. Current interpretive data was last revised 2018. Albumin Creatinine Ratio, Ur 43(H) 1 - 29 mg/g [facility] Urine 01/10/2025 12:4 5 PM CDT 01/10/2025 1:01 PM CDT Killian Dumont MD LAB URINE ORDERABLES Final Result Performing Organization Address [facility] Co de Phone Number [facility] Department [place] [address] * Sodium, urine, random (01/10/2025 12:45 PM CDT) Sodium, ur 56 mmol/L Comment: Interpretive Data No reference range established. Current interpretive data was last revised 2018. Urine 01/10/2025 12:4 5 PM CDT 01/10/2025 1:05 PM CDT Killian Dumont MD LAB URINE ORDERABLES Final Result Performing Organization Address [facility] de Phone Number [facility] Department [place] [address] * (ABNORMAL) Urinalysis, microscopic only (01/10/2025 12:45 PM CDT) WBC, ur 11-20(A) 0 - 5 /HPF RBC, ur >50(A) 0 - 2 /HPF [facility] Epithelial cells, squamous, ur 1-5 0 - 5 /HPF [facility] Bacteria, ur 3+(A) [facility] Mucous, ur Present(A) [facility] Uric acid crystals, ur 1+(A) [facility] Granular casts, ur 11-20(A) 0 - 0 /LPF [facility] Culture Reflex Comment Reflex to urine culture will be performed. [facility] Urine 01/10/2025 12:4 5 PM CDT 01/10/2025 1:01 PM CDT Killian Dumont MD LAB URINE ORDERABLES Final Result Performing Organization Address [facility] de Phone Number [facility] [place] [address] * Urine culture Urine (01/10/2025 12:45 PM CDT) Pathologist [facility] Report Final Report: No growth Urine 01/10/2025 12:4 5 PM CDT 01/10/2025 4:46 PM CDT Narrative [facility] - 01/11/2025 5:35 PM CDT Urine culture reflexed based upon urinalysis results. Testing performed by [facility] ([phone]) Killian Dumont MD LAB MICROBIOLOGY - GENERAL ORDERABLES Final Result Performing Organization Address City/[facility]/ZIP Co de Phone Number [facility] [place] [address] * POCT glucose (01/10/2025 11:35 AM CDT) Pathologist [facility] Glucose, POC 141 70 - 199 mg/dL Blood 01/10/2025 11:3 5 AM CDT 01/10/2025 11:35 AM CDT Killian Dumont MD LAB POCT ORDERABLES - MATEUS CE Final Result Performing Organization Address City/[facility]/ZIP Co de Phone Number [facility] [place] [address] * Type and screen (01/10/2025 11:34 AM CDT) ABO Rh O Positive Maribell, indirect Negative [facility] Blood 01/10/2025 11:3 4 AM CDT 01/10/2025 11:53 AM CDT Narrative [facility] - 01/10/2025 12:49 PM CDT Has the patient had Daratumumab or Isatuximab in the past 6 months?->Unknown Julee Yoder NP LAB BLOOD BANK TEST ORDERABLES Final Result [facility] [address] [place] [address] * Prepare RBC: 1 Units (01/10/2025 10:24 AM CDT) [facility] Product code [id number] Unit Number [id number] [facility] Product Blood Type OPOS [facility] Dispense Status PRESUMED TRANSFUSED [facility] Blood 01/10/2025 10:2 4 AM CDT 01/10/2025 10:24 AM CDT Narrative [facility] - 01/11/2025 4:00 AM CDT Are special requirements needed? (All products are leukoreduced and CMV- safe)- >No Date required:-[id number] LRRBC # of [id number] Reasons:-Cardiovascular disease, Hgb <8 g/dL} us Julee Yoder [employer] BLOOD BANK PRODUCT O RDERABLES Final Result [facility] [address] [place] [address] * POCT glucose (01/10/2025 7:19 AM CDT) [facility] Glucose, POC 152 70 - 199 mg/dL Blood 01/10/2025 7:19 AM CDT 01/10/2025 7:19 AM CDT us Killian Dumont MD LAB POCT ORDERABLES - [place] [address] * (ABNORMAL) eGFR (01/10/2025 6:13 AM CDT) [facility] eGFR 29(L) >=60 mL/min/1. 73 m2 Comment: [...] 6:13 AM CDT 01/10/2025 6:37 AM CDT Rosalva Polanco NP LAB BLOOD ORDERABLES Final Res ult Performing Organization Address City/[facility] Co de Phone Number [facility] Department of Mobile System [address] [place] [address] * (ABNORMAL) aPTT (01/10/2025 6:13 AM CDT) aPTT 24(L) 26 - 38 sec Comment: Interpretive Data Heparin therapeutic range: 66.0 - 100.0 seconds. Range based on correlation with therapeutic heparin activity range of 0.3 - 0.7 Units/mL. Current interpretive data was last revised on 2023. Blood 01/10/2025 6:13 AM CDT 01/10/2025 7:00 AM CDT Rosalva Polanco NP LAB BLOOD ORDERABLES Final Res ult [facility] [place] [address] * Protime-INR (01/10/2025 6:13 AM CDT) Pathologist [facility] PT 11.9 10.2 - 13.5 sec INR 1.05 0.90 - 1.20 [facility] Comment: Interpretive data Oral anticoagulant therapeutic ranges: Venous thromboembolism prophylaxis or treatment: 2.0-3.0 CARDIOLOGY Standard range: 2.0-3.0 High-intensity range: 2.5-3.5 Refer to indication-specific guidelines for appropriate target ranges for prosthetic heart valve replacement. Current interpretive data was last revised on 2019. Blood 01/10/2025 6:13 AM CDT 01/10/2025 7:00 AM CDT us Rosalva Polanco NP LAB BLOOD ORDERABLES Final Res ult [facility] One [facility] Department [place] [address] * (ABNORMAL) CBC without differential (01/10/2025 6:13 AM CDT) Pathologist [facility] WBC 11.87(H) 3.80 - 9.90 K/cumm Hgb 7.5(L) 11.9 - 15.5 g/dL [facility] Hct 22.6(L) 35.6 - 45.5 % [facility] Plt 81(L) 150 - 400 K/cumm [facility] MPV 11.1 9.1 - 12.3 fL [facility] RBC 2.55(L) 3.90 - 5.20 M/cumm [facility] MCV 88.6 81.3 - 96.4 fL [facility] MCH 29.4 27.1 - 33.3 pg [facility] MCHC 33.2 32.3 - 35.7 g/dL [facility] RDW CV 18.2(H) 11.1 - 14.9 % [facility] RDW SD 58.3(H) 35.7 - 48.1 fL [facility] NRBC abs 0.03(H) 0.00 - 0.01 K/cumm [facility] Blood 01/10/2025 6:13 AM CDT 01/10/2025 6:37 AM CDT Rosalva Polanco NP LAB BLOOD ORDERABLES Final Res ult [facility] Department [place] [address] * (ABNORMAL) Basic metabolic panel (01/10/2025 6:13 AM CDT) [facility] Sodium 142 135 - 145 mmol/L Potassium, pl 4.1 3.3 - 4.9 mmol/L [facility] Chloride 110 97 - 110 mmol/L [facility] CO2 27 22 - 32 mmol/L [facility] Anion gap 5 2 - 15 mmol/L [facility] BUN 60(H) 6 - 25 mg/dL [facility] Creatinine 1.84(H) 0.60 - 1.10 mg/dL [facility] Glucose 194 70 - 199 mg/dL [facility] Comment: Interpretive Data Fasting glucose >/= [...] Calcium 7.4(L) 8.5 - 10.3 mg/dL [facility] Blood 01/10/2025 6:13 AM CDT 01/10/2025 6:37 AM CDT Rosalva Polanco NP LAB BLOOD ORDERABLES Final Res ult [facility] Department [place] [address] * POCT glucose (01/09/2025 9:10 PM CDT) Glucose, POC 183 70 - 199 mg/dL Blood 01/09/2025 9:10 PM CDT 01/09/2025 9:10 PM CDT us Killian Dumont MD LAB POCT ORDERABLES - MATEUS CE Final Result Performing Organization Address City/[facility]/ZIP Co de Phone Number [facility] Department [place] [address] * (ABNORMAL) eGFR (01/09/2025 8:45 PM CDT) Pathologist [facility] eGFR 27(L) >=60 mL/min/1. 73 m2 Comment: [...] PM CDT 01/09/2025 9:05 PM CDT us Haylee Barrera NP LAB BLOOD ORDERABL ES Final Result Performing Organization Address City/[facility]/ZIP Co de Phone Number [facility] Department [place] [address] * (ABNORMAL) aPTT (01/09/2025 8:45 PM CDT) aPTT 23(L) 26 - 38 sec Comment: Interpretive Data Heparin therapeutic range: 66.0 - 100.0 seconds. Range based on correlation with therapeutic heparin activity range of 0.3 - 0.7 Units/mL. Current interpretive data was last revised on 2023. Blood 01/09/2025 8:45 PM CDT 01/09/2025 9:05 PM CDT Rosalva Polanco NP LAB BLOOD ORDERABLES Final Res ult Performing Organization Address [facility] Co de Phone Number [facility] [place] [address] * Protime-INR (01/09/2025 8:45 PM CDT) PT 11.0 10.2 - 13.5 sec INR 0.97 0.90 - 1.20 [facility] Comment: Interpretive data Oral anticoagulant therapeutic ranges: Venous thromboembolism prophylaxis or treatment: 2.0-3.0 CARDIOLOGY Standard range: 2.0-3.0 High-intensity range: 2.5-3.5 Refer to indication-specific guidelines for appropriate target ranges for prosthetic heart valve replacement. Current interpretive data was last revised on 2019. Blood 01/09/2025 8:45 PM CDT 01/09/2025 9:05 PM CDT Rosalva Polanco NP LAB BLOOD ORDERABLES Final Res ult Performing Organization Address [facility] Co de Phone Number [facility] [place] [address] * (ABNORMAL) CBC without differential (01/09/2025 8:45 PM CDT) WBC 14.43(H) 3.80 - 9.90 K/cumm Hgb 8.5(L) 11.9 - 15.5 g/dL [facility] Hct 26.0(L) 35.6 - 45.5 % [facility] Plt 85(L) 150 - 400 K/cumm [facility] MPV 11.5 9.1 - 12.3 fL [facility] RBC 2.97(L) 3.90 - 5.20 M/cumm [facility] MCV 87.5 81.3 - 96.4 fL [facility] MCH 28.6 27.1 - 33.3 pg [facility] MCHC 32.7 32.3 - 35.7 g/dL [facility] RDW CV 18.1(H) 11.1 - 14.9 % [facility] RDW SD 57.9(H) 35.7 - 48.1 fL [facility] NRBC abs 0.03(H) 0.00 - 0.01 K/cumm [facility] Blood 01/09/2025 8:45 PM CDT 01/09/2025 9:05 PM CDT Killian Dumont MD LAB BLOOD ORDERABLES Final Result Performing Organization Address City/[facility]/ZIP Co de Phone Number [facility] Department of Mobile System [address] [place] [address] * Phosphorus (01/09/2025 8:45 PM CDT) Pathologist [facility] Phosphorus, pl 3.8 2.3 - 4.5 mg/dL Blood 01/09/2025 8:45 PM CDT 01/09/2025 9:05 PM CDT Killian Dumont MD LAB BLOOD ORDERABLES Final Result [facility] Mobile System [address] [place] [address] * (ABNORMAL) Magnesium (01/09/2025 8:45 PM CDT) Pathologist [facility] Magnesium 3.2(H) 1.4 - 2.5 mg/dL Blood 01/09/2025 8:45 PM CDT 01/09/2025 9:05 PM CDT us Killian Dumont MD LAB BLOOD ORDERABLES Final Result [facility] One [facility] Department [place] [address] * (ABNORMAL) Comprehensive metabolic panel (01/09/2025 8:45 PM CDT) Sodium 142 135 - 145 mmol/L Potassium, pl 4.3 3.3 - 4.9 mmol/L [facility] Chloride 108 97 - 110 mmol/L [facility] CO2 25 22 - 32 mmol/L [facility] Anion gap 9 2 - 15 mmol/L [facility] BUN 63(H) 6 - 25 mg/dL [facility] Creatinine 1.97(H) 0.60 - 1.10 mg/dL [facility] Glucose 172 70 - 199 mg/dL [facility] Comment: Interpretive Data Fasting glucose >/= [...] 2022. Calcium 8.1(L) 8.5 - 10.3 mg/dL [facility] Bilirubin, total 0.4 0.1 - 1.2 mg/dL [facility] Protein, pl 5.8(L) 6.5 - 8.5 g/dL [facility] Albumin 3.1(L) 3.5 - 5.0 g/dL [facility] Alk phos 86 40 - 130 Units/L [facility] ALT 113(H) 7 - 45 Units/L [facility] AST 205(H) 10 - 45 Units/L [facility] Blood 01/09/2025 8:45 PM CDT 01/09/2025 9:05 PM CDT Killian Dumont MD LAB BLOOD ORDERABLES Final Result Performing Organization Address [facility] de Phone Number [facility] Mobile System [address] [place] [address] * POCT glucose (01/09/2025 6:05 PM CDT) Glucose, POC 155 70 - 199 mg/dL Blood 01/09/2025 6:05 PM CDT 01/09/2025 6:05 PM CDT Killian Dumont MD LAB POCT ORDERABLES - MATEUS CE Final Result Performing Organization Address [facility] de Phone Number [facility] of Mobile System [address] [place] [address] * POCT glucose (01/09/2025 3:28 PM CDT) Glucose, POC 149 70 - 199 mg/dL Blood 01/09/2025 3:28 PM CDT 01/09/2025 3:28 PM CDT Killian Dumont MD LAB POCT ORDERABLES - MATEUS CE Final Result Performing Organization Address [facility] de Phone Number [facility] [address] [place] [address] * (ABNORMAL) POCT glucose (01/09/2025 11:13 AM CDT) Glucose, POC 200(H) 70 - 199 mg/dL Comment:Glu2: RN/MD Notified Glucose comment 1 Glu2: RN/MD Notified [facility] Blood 01/09/2025 11:1 3 AM CDT 01/09/2025 11:13 AM CDT us Killian Dumont MD LAB POCT ORDERABLES - MATEUS CE Final Result [facility] Department [place] [address] * Critical Care (01/09/2025 10:08 AM CDT) [...] plan with the ICU team and other medical/groundwater consultant staff, making frequent assessments and decisions [...] MATEUS CE Final Result Performing Organization Address City/[facility] Co de Phone Number [facility] [place] [address] * POCT glucose (01/09/2025 3:15 AM CDT) Glucose, POC 193 70 - 199 mg/dL Blood 01/09/2025 3:15 AM CDT 01/09/2025 3:15 AM CDT Killian Dumont MD LAB POCT ORDERABLES - MATEUS CE Final Result Performing Organization Address [facility] de Phone Number [facility] [place] [address] * (ABNORMAL) POCT glucose (01/08/2025 11:16 PM CDT) Glucose, POC 227(H) 70 - 199 mg/dL Comment:Glu2: RN/MD Notified Glucose comment 1 Glu2: RN/MD Notified [facility] Blood 01/08/2025 11:1 6 PM CDT 01/08/2025 11:16 PM CDT Killian Dumont MD LAB POCT ORDERABLES - MATEUS CE Final Result Performing Organization Address [facility] Co de Phone Number [facility] [place] [address] * POCT glucose (01/08/2025 10:14 PM CDT) Glucose, POC 171 70 - 199 mg/dL Blood 01/08/2025 10:1 4 PM CDT 01/08/2025 10:14 PM CDT us Killian Dumont MD LAB POCT ORDERABLES - MATEUS CE Final Result [facility] Department [place] [address] * Critical Care (01/08/2025 10:00 PM CDT) [...] plan with the ICU team and other medical/groundwater consultant staff, making frequent assessments and decisions [...] * (ABNORMAL) eGFR (01/08/2025 9:17 PM CDT) [facility] eGFR 24(L) >=60 mL/min/1. 73 m2 Comment: [...] 9:17 PM CDT 01/08/2025 10:39 PM CDT Haylee Barrera NP LAB BLOOD ORDERABL ES Final Result [facility] One [facility] Department [place] [address] * (ABNORMAL) CBC without differential (01/08/2025 9:17 PM CDT) [facility] WBC 15.66(H) 3.80 - 9.90 K/cumm Hgb 9.3(L) 11.9 - 15.5 g/dL [facility] Hct 27.9(L) 35.6 - 45.5 % [facility] Plt 65(L) 150 - 400 K/cumm [facility] MPV 11.4 9.1 - 12.3 fL [facility] RBC 3.27(L) 3.90 - 5.20 M/cumm [facility] MCV 85.3 81.3 - 96.4 fL [facility] MCH 28.4 27.1 - 33.3 pg [facility] MCHC 33.3 32.3 - 35.7 g/dL [facility] RDW CV 17.8(H) 11.1 - 14.9 % [facility] RDW SD 55.3(H) 35.7 - 48.1 fL [facility] NRBC abs 0.03(H) 0.00 - 0.01 K/cumm [facility] Blood 01/08/2025 9:17 PM CDT 01/08/2025 10:44 PM CDT Killian Dumont MD LAB BLOOD ORDERABLES Final Result Performing Organization Address City/[facility] Co de Phone Number [facility] [address] [place] [address] * Phosphorus (01/08/2025 9:17 PM CDT) Phosphorus, pl 4.1 2.3 - 4.5 mg/dL Blood 01/08/2025 9:17 PM CDT 01/08/2025 10:39 PM CDT Killian Dumont MD LAB BLOOD ORDERABLES Final Result Performing Organization Address [facility] Co de Phone Number [facility] of [facility] [address] [place] [address] * (ABNORMAL) Magnesium (01/08/2025 9:17 PM CDT) Magnesium 2.9(H) 1.4 - 2.5 mg/dL Blood 01/08/2025 9:17 PM CDT 01/08/2025 10:39 PM CDT Killian Dumont MD LAB BLOOD ORDERABLES Final Result Performing Organization Address City/[facility] Co de Phone Number [facility] [place] [address] * (ABNORMAL) Comprehensive metabolic panel (01/08/2025 9:17 PM CDT) Sodium 145 135 - 145 mmol/L Potassium, pl 4.4 3.3 - 4.9 mmol/L [facility] Chloride 111(H) 97 - 110 mmol/L [facility] CO2 23 22 - 32 mmol/L [facility] Anion gap 11 2 - 15 mmol/L [facility] BUN 52(H) 6 - 25 mg/dL [facility] Creatinine 2.18(H) 0.60 - 1.10 mg/dL [facility] Glucose 177 70 - 199 mg/dL [facility] Comment: Interpretive Data Fasting glucose >/= [...] Calcium 8.3(L) 8.5 - 10.3 mg/dL [facility] Bilirubin, total 0.5 0.1 - 1.2 mg/dL [facility] Protein, pl 5.7(L) 6.5 - 8.5 g/dL [facility] Albumin 3.1(L) 3.5 - 5.0 g/dL [facility] Alk phos 83 40 - 130 Units/L [facility] ALT 196(H) 7 - 45 Units/L [facility] AST 434(H) 10 - 45 Units/L [facility] Blood 01/08/2025 9:17 PM CDT 01/08/2025 10:39 PM CDT us Killian Dumont MD LAB BLOOD ORDERABLES Final Result [facility] Department [place] [address] * Critical Care (01/08/2025 5:56 PM CDT) [...] plan with the ICU team and other medical/groundwater consultant staff, making frequent assessments and decisions [...] URINE ORDERABLES Final Result Performing Organization Address [facility] de Phone Number [facility] [place] [address] * Creatinine, urine, random (01/08/2025 4:31 PM CDT) Creatinine Ur 97.3 mg/dL Comment: Interpretive Data No reference range established. Current interpretive data was last revised 2018. Urine 01/08/2025 4:31 PM CDT 01/08/2025 4:50 PM CDT Killian Dumont MD LAB URINE ORDERABLES Final Result Performing Organization Address [facility] de Phone Number [facility] [place] [address] * POCT glucose (01/08/2025 3:12 PM CDT) Glucose, POC 126 70 - 199 mg/dL Blood 01/08/2025 3:12 PM CDT 01/08/2025 3:12 PM CDT Killian Dumont MD LAB POCT ORDERABLES - MATEUS CE Final Result Performing Organization Address [facility] de Phone Number [facility] [address] [place] [address] * (ABNORMAL) Hemoglobin and hematocrit (01/08/2025 1:05 PM CDT) Hgb 8.8(L) 11.9 - 15.5 g/dL Hct 25.8(L) 35.6 - 45.5 % [facility] Blood 01/08/2025 1:05 PM CDT 01/08/2025 1:13 PM CDT Killian Dumont MD LAB BLOOD ORDERABLES Final Result Performing Organization Address [facility] Co de Phone Number [facility] [place] [address] * Calcium, ionized (01/08/2025 1:02 PM CDT) Calcium, Ionized 4.51 4.50 - 5.10 mg/dL Blood 01/08/2025 1:02 PM CDT 01/08/2025 1:13 PM CDT Killian Dumont MD LAB BLOOD ORDERABLES Final Result Performing Organization Address [facility] [place] [address] * Transfuse RBC (01/08/2025 11:41 AM CDT) Blood Result [facility] Killian Dumont MD BLOOD TRANSFUSION ORDERABL ES Final Result Performing Organization Address [facility] de Phone Number [facility] [place] [address] * POCT glucose (01/08/2025 11:12 AM CDT) Glucose, POC 125 70 - 199 mg/dL Blood 01/08/2025 11:1 2 AM CDT 01/08/2025 11:12 AM CDT Killian Dumont MD LAB POCT ORDERABLES - MATEUS CE Final Result Performing Organization Address [facility] [place] [address] * POCT glucose (01/08/2025 7:52 AM CDT) Glucose, POC 133 70 - 199 mg/dL Blood 01/08/2025 7:52 AM CDT 01/08/2025 7:52 AM CDT Killian Dumont MD LAB POCT ORDERABLES - MATEUS CE Final Result Performing Organization Address [facility] de Phone Number [facility] of [facility] [address] [place] [address] * (ABNORMAL) aPTT (01/08/2025 5:59 AM CDT) Pathologist [facility] aPTT 24(L) 26 - 38 sec Comment: Interpretive Data Heparin therapeutic range: 66.0 - 100.0 seconds. Range based on correlation with therapeutic heparin activity range of 0.3 - 0.7 Units/mL. Current interpretive data was last revised on 2023. Blood 01/08/2025 5:59 AM CDT 01/08/2025 6:55 AM CDT Killian Dumont MD LAB BLOOD ORDERABLES Final Result Performing Organization Address [facility] de Phone Number [facility] [address] [place] [address] * Protime-INR (01/08/2025 5:59 AM CDT) Pathologist [facility] PT 11.4 10.2 - 13.5 sec INR 1.01 0.90 - 1.20 [facility] Comment: Interpretive data Oral anticoagulant therapeutic ranges: Venous thromboembolism prophylaxis or treatment: 2.0-3.0 CARDIOLOGY Standard range: 2.0-3.0 High-intensity range: 2.5-3.5 Refer to indication-specific guidelines for appropriate target ranges for prosthetic heart valve replacement. Current interpretive data was last revised on 2019. Blood 01/08/2025 5:59 AM CDT 01/08/2025 6:55 AM CDT Killian Dumont MD LAB BLOOD ORDERABLES Final Result Performing Organization Address [facility] de Phone Number [facility] [place] [address] * (ABNORMAL) eGFR (01/08/2025 5:04 AM CDT) [...] BLOOD ORDERABLES Final Result Performing Organization Address City/[facility]/ZIP Co de Phone Number [facility] Department [place] [address] * (ABNORMAL) CBC without differential (01/08/2025 5:04 AM CDT) WBC 12.59(H) 3.80 - 9.90 K/cumm Hgb 7.8(L) 11.9 - 15.5 g/dL [facility] Hct 23.1(L) 35.6 - 45.5 % [facility] Plt 60(L) 150 - 400 K/cumm [facility] MPV 11.1 9.1 - 12.3 fL [facility] RBC 2.73(L) 3.90 - 5.20 M/cumm [facility] MCV 84.6 81.3 - 96.4 fL [facility] MCH 28.6 27.1 - 33.3 pg [facility] MCHC 33.8 32.3 - 35.7 g/dL [facility] RDW CV 18.5(H) 11.1 - 14.9 % [facility] RDW SD 56.6(H) 35.7 - 48.1 fL [facility] NRBC abs 0.02(H) 0.00 - 0.01 K/cumm [facility] Blood 01/08/2025 5:04 AM CDT 01/08/2025 5:32 AM CDT Killian Dumont MD LAB BLOOD ORDERABLES Final Result [facility] Department [place] [address] * (ABNORMAL) Basic metabolic panel (01/08/2025 5:04 AM CDT) Sodium 142 135 - 145 mmol/L Potassium, pl 4.0 3.3 - 4.9 mmol/L [facility] Chloride 110 97 - 110 mmol/L [facility] CO2 25 22 - 32 mmol/L [facility] Anion gap 7 2 - 15 mmol/L [facility] BUN 51(H) 6 - 25 mg/dL [facility] Creatinine 2.48(H) 0.60 - 1.10 mg/dL [facility] Glucose 146 70 - 199 mg/dL [facility] Comment: Interpretive Data Fasting glucose >/= [...] Calcium 8.0(L) 8.5 - 10.3 mg/dL [facility] Blood 01/08/2025 5:04 AM CDT 01/08/2025 5:32 AM CDT Killian Dumont MD LAB BLOOD ORDERABLES Final Result Performing Organization Address City/[facility]/ZIP Co de Phone Number [facility] [address] [place] [address] * POCT glucose (01/08/2025 3:14 AM CDT) Glucose, POC 147 70 - 199 mg/dL Blood 01/08/2025 3:14 AM CDT 01/08/2025 3:14 AM CDT Killian Dumont MD LAB POCT ORDERABLES - MATEUS CE Final Result Performing Organization Address [facility] Co de Phone Number [facility] [address] [place] [address] * Transfuse RBC (01/08/2025 2:50 AM CDT) Blood Killian Dumont MD BLOOD TRANSFUSION ORDERABL ES Final Result Performing Organization Address [facility] Co de Phone Number [facility] [address] [place] [address] * Prepare RBC: 1 Units (01/08/2025 12:29 AM CDT) Product code [id number] Unit Number [id number] [facility] Product Blood Type OPOS [facility] Dispense Status PRESUMED TRANSFUSED [facility] Blood 01/08/2025 12:2 9 AM CDT 01/08/2025 12:31 AM CDT Narrative [facility] - 01/09/2025 12:55 AM CDT Are special requirements needed? (All products are leukoreduced and CMV- safe)- >No Date required:-20250108 LRRBC # of [id number] Reasons:-Cardiovascular disease, Hgb <8 g/dL} Killian Dumont MD BLOOD BANK PRODUCT ORDERAB LES Final Result Performing Organization Address [facility] Co de Phone Number [facility] Department [place] [address] * Prepare RBC: 1 Units (01/08/2025 12:16 AM CDT) Pathologist [facility] Product code [id number] Unit Number [id number] [facility] Product Blood Type OPOS [facility] Dispense Status PRESUMED TRANSFUSED [facility] Blood 01/08/2025 12:1 6 AM CDT 01/08/2025 12:16 AM CDT Narrative [facility] - 01/08/2025 4:00 PM CDT Are special requirements needed? (All products are leukoreduced and CMV- safe)- >No Date required:-20250108 LRRBC # of [id number] Reasons:-Active bleeding, Hgb <8 g/dL} Killian Dumont MD BLOOD BANK PRODUCT ORDERAB LES Final Result Performing Organization Address [facility] Co de Phone Number [facility] Department [place] [address] * POCT glucose (01/07/2025 11:37 PM CDT) Glucose, POC 132 70 - 199 mg/dL Blood 01/07/2025 11:3 7 PM CDT 01/07/2025 11:37 PM CDT us Killian Dumont MD LAB POCT ORDERABLES - MATEUS CE Final Result [facility] Department [place] [address] * Critical Care (01/07/2025 10:50 PM CDT) [...] plan with the ICU team and other medical/groundwater consultant staff, making frequent assessments and decisions [...] * (ABNORMAL) eGFR (01/07/2025 8:05 PM CDT) [facility] eGFR 22(L) >=60 mL/min/1. 73 m2 Comment: [...] 8:05 PM CDT 01/07/2025 8:34 PM CDT Haylee Barrera NP LAB BLOOD ORDERABL ES Final Result [facility] Department [place] [address] * (ABNORMAL) CBC without differential (01/07/2025 8:05 PM CDT) WBC 12.68(H) 3.80 - 9.90 K/cumm Hgb 7.2(L) 11.9 - 15.5 g/dL [facility] Hct 21.7(L) 35.6 - 45.5 % [facility] Plt 67(L) 150 - 400 K/cumm [facility] MPV 12.0 9.1 - 12.3 fL [facility] RBC 2.52(L) 3.90 - 5.20 M/cumm [facility] MCV 86.1 81.3 - 96.4 fL [facility] MCH 28.6 27.1 - 33.3 pg [facility] MCHC 33.2 32.3 - 35.7 g/dL [facility] RDW CV 19.0(H) 11.1 - 14.9 % [facility] RDW SD 59.1(H) 35.7 - 48.1 fL [facility] NRBC abs 0.02(H) 0.00 - 0.01 K/cumm [facility] Blood 01/07/2025 8:05 PM CDT 01/07/2025 8:35 PM CDT Killian Dumont MD LAB BLOOD ORDERABLES Final Result Performing Organization Address City/[facility] Co de Phone Number [facility] [address] [place] [address] * (ABNORMAL) Phosphorus (01/07/2025 8:05 PM CDT) Phosphorus, pl 5.3(H) 2.3 - 4.5 mg/dL Blood 01/07/2025 8:05 PM CDT 01/07/2025 8:34 PM CDT Killian Dumont MD LAB BLOOD ORDERABLES Final Result Performing Organization Address [facility] de Phone Number [facility] [address] [place] [address] * (ABNORMAL) Magnesium (01/07/2025 8:05 PM CDT) Magnesium 2.8(H) 1.4 - 2.5 mg/dL Blood 01/07/2025 8:05 PM CDT 01/07/2025 8:34 PM CDT Killian Dumont MD LAB BLOOD ORDERABLES Final Result Performing Organization Address [facility] de Phone Number [facility] [address] [place] [address] * (ABNORMAL) Comprehensive metabolic panel (01/07/2025 8:05 PM CDT) Sodium 145 135 - 145 mmol/L Potassium, pl 4.2 3.3 - 4.9 mmol/L [facility] Chloride 111(H) 97 - 110 mmol/L [facility] CO2 24 22 - 32 mmol/L [facility] Anion gap 10 2 - 15 mmol/L [facility] BUN 47(H) 6 - 25 mg/dL [facility] Creatinine 2.34(H) 0.60 - 1.10 mg/dL [facility] Glucose 142 70 - 199 mg/dL [facility] Comment: Interpretive Data Fasting glucose >/= [...] Calcium 7.8(L) 8.5 - 10.3 mg/dL [facility] Bilirubin, total 0.2 0.1 - 1.2 mg/dL [facility] Protein, pl 4.9(L) 6.5 - 8.5 g/dL [facility] Albumin 3.0(L) 3.5 - 5.0 g/dL [facility] Alk phos 63 40 - 130 Units/L [facility] ALT 441(H) 7 - 45 Units/L [facility] AST 794(H) 10 - 45 Units/L [facility] Blood 01/07/2025 8:05 PM CDT 01/07/2025 8:34 PM CDT us Killian Dumont MD LAB BLOOD ORDERABLES Final Result [facility] Department [place] [address] * POCT glucose (01/07/2025 7:20 PM CDT) [facility] Glucose, POC 141 70 - 199 mg/dL Blood 01/07/2025 7:20 PM CDT 01/07/2025 7:20 PM CDT Killian Dumont MD LAB POCT ORDERABLES - MATEUS CE Final Result [facility] Department [place] [address] * X-ray chest 1 view (01/07/2025 4:36 [...] * POCT glucose (01/07/2025 3:48 PM CDT) Glucose, POC 163 70 - 199 mg/dL Blood 01/07/2025 3:48 PM CDT 01/07/2025 3:48 PM CDT us Killian Dumont MD LAB POCT ORDERABLES - MATEUS CE Final Result [facility] Department [place] [address] * (ABNORMAL) CBC without differential (01/07/2025 2:06 PM CDT) Pathologist [facility] WBC 12.34(H) 3.80 - 9.90 K/cumm Hgb 7.7(L) 11.9 - 15.5 g/dL [facility] Hct 23.3(L) 35.6 - 45.5 % [facility] Plt 70(L) 150 - 400 K/cumm [facility] MPV 12.9(H) 9.1 - 12.3 fL [facility] RBC 2.74(L) 3.90 - 5.20 M/cumm [facility] MCV 85.0 81.3 - 96.4 fL [facility] MCH 28.1 27.1 - 33.3 pg [facility] MCHC 33.0 32.3 - 35.7 g/dL [facility] RDW CV 18.9(H) 11.1 - 14.9 % [facility] RDW SD 58.3(H) 35.7 - 48.1 fL [facility] NRBC abs 0.03(H) 0.00 - 0.01 K/cumm [facility] Blood 01/07/2025 2:06 PM CDT 01/07/2025 2:23 PM CDT us Haylee Barrera NP LAB BLOOD ORDERABL ES Final Result [facility] Department [place] [address] * POCT glucose (01/07/2025 11:51 AM CDT) Glucose, POC 159 70 - 199 mg/dL Blood 01/07/2025 11:5 1 AM CDT 01/07/2025 11:51 AM CDT us Killian Dumont MD LAB POCT ORDERABLES - MATEUS CE Final Result [facility] Department [place] [address] * Critical Care (01/07/2025 11:05 AM CDT) [...] plan with the patient's team and other medical/groundwater consultant staff. This time was in addition [...] Glucose comment 1 Glu2: RN/MD Notified [facility] Blood 01/07/2025 8:25 AM CDT 01/07/2025 8:25 AM CDT Killian Dumont MD LAB POCT ORDERABLES - MATEUS CE Final Result Performing Organization Address [facility] Co de Phone Number [facility] [place] [address] * (ABNORMAL) eGFR (01/07/2025 4:05 AM CDT) [...] BLOOD ORDERABLES Final Result Performing Organization Address City/[facility]/ZIP Co de Phone Number [facility] [place] [address] * (ABNORMAL) CBC without differential (01/07/2025 4:05 AM CDT) WBC 15.36(H) 3.80 - 9.90 K/cumm Hgb 9.2(L) 11.9 - 15.5 g/dL [facility] Hct 27.5(L) 35.6 - 45.5 % [facility] Plt 76(L) 150 - 400 K/cumm [facility] MPV 10.9 9.1 - 12.3 fL [facility] RBC 3.21(L) 3.90 - 5.20 M/cumm [facility] MCV 85.7 81.3 - 96.4 fL [facility] MCH 28.7 27.1 - 33.3 pg [facility] MCHC 33.5 32.3 - 35.7 g/dL [facility] RDW CV 18.6(H) 11.1 - 14.9 % [facility] RDW SD 57.8(H) 35.7 - 48.1 fL [facility] NRBC abs 0.02(H) 0.00 - 0.01 K/cumm [facility] Blood 01/07/2025 4:05 AM CDT 01/07/2025 4:12 AM CDT Killian Dumont MD LAB BLOOD ORDERABLES Final Result [facility] [address] [place] [address] * (ABNORMAL) Phosphorus (01/07/2025 4:05 AM CDT) Phosphorus, pl 7.0(H) 2.3 - 4.5 mg/dL Blood 01/07/2025 4:05 AM CDT 01/07/2025 4:18 AM CDT Killian Dumont MD LAB BLOOD ORDERABLES Final Result [facility] [address] [place] [address] * (ABNORMAL) Magnesium (01/07/2025 4:05 AM CDT) Magnesium 2.7(H) 1.4 - 2.5 mg/dL Blood 01/07/2025 4:05 AM CDT 01/07/2025 4:18 AM CDT Killian Dumont MD LAB BLOOD ORDERABLES Final Result Performing Organization Address [facility] [place] [address] * (ABNORMAL) Hepatic function panel (01/07/2025 4:05 AM CDT) Bilirubin, total 0.6 0.1 - 1.2 mg/dL Bilirubin, direct 0.2 0.1 - 0.3 mg/dL [facility] Comment:Reviewed Protein, pl 5.5(L) 6.5 - 8.5 g/dL [facility] Albumin 3.5 3.5 - 5.0 g/dL [facility] Alk phos 64 40 - 130 Units/L [facility] ALT 690(H) 7 - 45 Units/L [facility] AST 926(H) 10 - 45 Units/L [facility] Blood 01/07/2025 4:05 AM CDT 01/07/2025 4:18 AM CDT Killian Dumont MD LAB BLOOD ORDERABLES Final Result Performing Organization Address [facility] [place] [address] * (ABNORMAL) Basic metabolic panel (01/07/2025 4:05 AM CDT) Sodium 144 135 - 145 mmol/L Potassium, pl 4.7 3.3 - 4.9 mmol/L [facility] Chloride 113(H) 97 - 110 mmol/L [facility] CO2 23 22 - 32 mmol/L [facility] Anion gap 8 2 - 15 mmol/L [facility] BUN 41(H) 6 - 25 mg/dL [facility] Creatinine 1.84(H) 0.60 - 1.10 mg/dL [facility] Glucose 202(H) 70 - 199 mg/dL [facility] Comment: Interpretive Data Fasting glucose >/= [...] Calcium 8.2(L) 8.5 - 10.3 mg/dL [facility] Blood 01/07/2025 4:05 AM CDT 01/07/2025 4:18 AM CDT Killian Dumont MD LAB BLOOD ORDERABLES Final Result Performing Organization Address [facility] de Phone Number [facility] Department [place] [address] * POCT glucose (01/07/2025 3:09 AM CDT) [facility] Signature Glucose, POC 185 70 - 199 mg/dL Blood 01/07/2025 3:09 AM CDT 01/07/2025 3:09 AM CDT Killian Dumont MD LAB POCT ORDERABLES - MATEUS CE Final Result Performing Organization Address [facility] Co de Phone Number [facility] Department [place] [address] * Transfuse platelets (01/07/2025 2:12 AM CDT) Blood Killian Dumont MD BLOOD TRANSFUSION ORDERABL ES Final Result Performing Organization Address [facility] Co de Phone Number [facility] Department [place] [address] * POCT glucose (01/06/2025 11:28 PM CDT) Glucose, POC 171 70 - 199 mg/dL Blood 01/06/2025 11:2 8 PM CDT 01/06/2025 11:28 PM CDT Killian Dmuont MD LAB POCT ORDERABLES - MATEUS CE Final Result [facility] [place] [address] * Prepare platelets: 1 Units (01/06/2025 11:15 PM CDT) Pathologist [facility] Product code [id number] Unit Number [id number] [facility] Product Blood Type OPOS [facility] Dispense Status PRESUMED TRANSFUSED [facility] Blood Venous blood specimen / Unknown 01/06/2025 11:15 PM CDT 01/06/2025 11:14 PM CDT Narrative [facility] - 01/07/2025 4:01 PM CDT Are special requirements needed? (all products are leukoreduced)->No Date required:-[id number] PLT # of Units:-1-Units Reasons:-Mild bleeding, plt < 50 K/cumm} us Killian Dumont MD BLOOD BANK PRODUCT ORDERAB LES Final Result [facility] Department [place] [address] * XR Chest 1 View (01/06/2025 11:12 [...] signed by: Soy Mcdowell M.D. us Killian Dumotn MD IMG XR PROCEDURES Final Re sult * (ABNORMAL) POC Blood Gas and Chemistries, Arterial - (01/06/2025 9:44 PM CDT) pH, Art POC 7.25(L) 7.35 - 7.45 pCO2, Art POC 45 35 - 45 mmHg [facility] pO2, Art POC 108 83 - 108 mmHg [facility] Na, POC 144 135 - 145 mmol/L [facility] K POC 4.6 3.3 - 4.9 mmol/L [facility] Comment: Interpretive Data Not all point of care methods assess for hemolysis. Confirm with instrument and retest K+ if not consistent with clinical signs and symptoms. Current Interpretive Data was last revised on 2023. Cl, POC 112(H) 97 - 110 mmol/L [facility] Ionized Ca, POC 4.87 4.50 - 5.10 mg/dL [facility] Glucose, POC 196 70 - 199 mg/dL [facility] Lactate POC 4.0(C) 0.7 - 2.0 mmol/L [facility] SO2 (eber) arterial 100(H) 90 - 95 % [facility] Base excess, POC -7.3 mmol/L [facility] HCO3, Art POC 20 20 - 30 mmol/L [facility] Hct, POC 31.0(L) 36.3 - 45.3 % [facility] Total Hb, POC 10.4(L) 11.9 - 15.5 g/dL [facility] Blood 01/06/2025 9:44 PM CDT 01/06/2025 9:44 PM CDT Killian Dumont MD LAB POCT ORDERABLES - MATEUS CE Final Result [facility] [place] [address] * Immature platelet fraction (01/06/2025 9:38 PM CDT) [facility] IPF 4.0 1.6 - 10.1 % Blood 01/06/2025 9:38 PM CDT 01/06/2025 10:06 PM CDT Killian Dumont MD LAB BLOOD ORDERABLES Final Result [facility] [place] [address] * (ABNORMAL) eGFR (01/06/2025 9:38 PM CDT) [facility] eGFR 35(L) >=60 mL/min/1. 73 m2 Comment: [...] BLOOD ORDERABLES Final Result Performing Organization Address [facility] Co de Phone Number [facility] [place] [address] * aPTT (01/06/2025 9:38 PM CDT) aPTT [...] BLOOD ORDERABLES Final Result Performing Organization Address [facility] Co de Phone Number [facility] [place] [address] * (ABNORMAL) Protime-INR (01/06/2025 9:38 PM CDT) PT 14.6(H) 10.2 - 13.5 sec INR 1.30(H) 0.90 - 1.20 [facility] Comment: Interpretive data Oral anticoagulant therapeutic ranges: Venous thromboembolism prophylaxis or treatment: 2.0-3.0 CARDIOLOGY Standard range: 2.0-3.0 High-intensity range: 2.5-3.5 Refer to indication-specific guidelines for appropriate target ranges for prosthetic heart valve replacement. Current interpretive data was last revised on 2019. Blood 01/06/2025 9:38 PM CDT 01/06/2025 10:01 PM CDT Killian Dumont MD LAB BLOOD ORDERABLES Final Result [facility] One [facility] [place] [address] * (ABNORMAL) CBC without differential (01/06/2025 9:38 PM CDT) WBC 14.68(H) 3.80 - 9.90 K/cumm Hgb 10.0(L) 11.9 - 15.5 g/dL [facility] Hct 30.3(L) 35.6 - 45.5 % [facility] Plt 44(C) 150 - 400 K/cumm [facility] Comment:Platelet count confi rmed by additional testing. Critical platelet count threshold determined by patient location: Outpatient:<50 K/cumm , Inpatient adults:<20 K/cumm , Inpatient pediatric:<25 K/cumm, BMT service:<10 K/cumm MPV 9.5 9.1 - 12.3 fL [facility] RBC 3.46(L) 3.90 - 5.20 M/cumm [facility] MCV 87.6 81.3 - 96.4 fL [facility] MCH 28.9 27.1 - 33.3 pg [facility] MCHC 33.0 32.3 - 35.7 g/dL [facility] RDW CV 18.3(H) 11.1 - 14.9 % [facility] RDW SD 58.6(H) 35.7 - 48.1 fL [facility] NRBC abs 0.02(H) 0.00 - 0.01 K/cumm [facility] Blood 01/06/2025 9:38 PM CDT 01/06/2025 9:55 PM CDT Killian Dumont MD LAB BLOOD ORDERABLES Final Result Performing Organization Address City/[facility] Co de Phone Number [facility] [address] [place] [address] * (ABNORMAL) Phosphorus (01/06/2025 9:38 PM CDT) Pathologist [facility] Phosphorus, pl 5.8(H) 2.3 - 4.5 mg/dL Blood 01/06/2025 9:38 PM CDT 01/06/2025 9:55 PM CDT Killian Dumont MD LAB BLOOD ORDERABLES Final Result Performing Organization Address [facility] Co de Phone Number [facility] [place] [address] * Magnesium (01/06/2025 9:38 PM CDT) [facility] Magnesium 1.6 1.4 - 2.5 mg/dL Blood 01/06/2025 9:38 PM CDT 01/06/2025 9:55 PM CDT Killian Dumont MD LAB BLOOD ORDERABLES Final Result Performing Organization Address [facility] Co de Phone Number [facility] [place] [address] * (ABNORMAL) Hepatic function panel (01/06/2025 9:38 PM CDT) Pathologist [facility] Bilirubin, total 0.5 0.1 - 1.2 mg/dL Bilirubin, direct <0.2 0.1 - 0.3 mg/dL [facility] Protein, pl 5.4(L) 6.5 - 8.5 g/dL [facility] Albumin 3.7 3.5 - 5.0 g/dL [facility] Alk phos 52 40 - 130 Units/L [facility] ALT 389(H) 7 - 45 Units/L [facility] Comment:Repeated and Verifie d AST 463(H) 10 - 45 Units/L [facility] Comment:Repeated and Verifie d Blood 01/06/2025 9:38 PM CDT 01/06/2025 9:55 PM CDT Killian Dumont MD LAB BLOOD ORDERABLES Final Result [facility] One [facility] [place] [address] * (ABNORMAL) Lipid panel (01/06/2025 9:38 PM [...] revised on 2017. Triglycerides 141 <=149 mg/dL [facility] Comment: Interpretive Data Ages < or = [...] on 2017. HDL 28(L) >=40 mg/dL [facility] Comment: Interpretive Data Ages < or = [...] 2017. LDL, calculated 85 <=129 mg/dL [facility] Comment: Interpretive Data Ages < or = [...] NCEP Expert Panel. Circulation 2004;110:227 3. Daniel M et al. MARZENA Cardiol. 2019September 02;5(5):540-548. doi: 10.1001/[email or web address].2020.0013 Current Interpretive Data was last revised on 2023. Non-HDL Cholesterol 110 mg/dL [facility] Comment: Interpretive Data Ages < or [...] revised on 2017. Chol/HDL ratio 5 [facility] Blood 01/06/2025 9:38 PM CDT 01/06/2025 9:55 PM CDT Killian Dumont MD LAB BLOOD ORDERABLES Final Result [facility] Department [place] [address] * (ABNORMAL) Basic metabolic panel (01/06/2025 9:38 PM CDT) [facility] Sodium 145 135 - 145 mmol/L Potassium, pl 4.5 3.3 - 4.9 mmol/L [facility] Chloride 113(H) 97 - 110 mmol/L [facility] CO2 22 22 - 32 mmol/L [facility] Anion gap 10 2 - 15 mmol/L [facility] BUN 37(H) 6 - 25 mg/dL [facility] Creatinine 1.58(H) 0.60 - 1.10 mg/dL [facility] Glucose 190 70 - 199 mg/dL [facility] Comment: Interpretive Data Fasting glucose >/= [...] Calcium 8.5 8.5 - 10.3 mg/dL [facility] Blood 01/06/2025 9:38 PM CDT 01/06/2025 9:55 PM CDT us Killian Dumont MD LAB BLOOD ORDERABLES Final Result Performing Organization Address [facility]/ZIP Co de Phone Number [facility] [place] [address] * POCT glucose (01/06/2025 9:34 PM CDT) Glucose, POC 187 70 - 199 mg/dL Blood 01/06/2025 9:34 PM CDT 01/06/2025 9:34 PM CDT us Killian Dumont MD LAB POCT ORDERABLES - MATEUS CE Final Result Performing Organization Address [facility] Co de Phone Number [facility] [place] [address] * Transfuse plasma (01/06/2025 7:49 PM CDT) Blood Bobby Meza MD BLOOD TRANSFUSION ORDERABLES Final Result Performing Organization Address [facility] Co de Phone Number [facility] Department [place] [address] * Transfuse RBC (01/06/2025 7:27 PM CDT) Blood Bobby Meza MD BLOOD TRANSFUSION ORDERABLES Final Result Performing Organization Address [facility] de Phone Number [facility] [place] [address] * (ABNORMAL) POC Blood Gas and Chemistries, Arterial - (01/06/2025 7:02 PM CDT) pH, Art POC 7.30(L) 7.35 - 7.45 pCO2, Art POC 35 35 - 45 mmHg [facility] pO2, Art POC 115(H) 83 - 108 mmHg [facility] Na, POC 143 135 - 145 mmol/L [facility] K POC 4.4 3.3 - 4.9 mmol/L [facility] Comment: Interpretive Data Not all point of care methods assess for hemolysis. Confirm with instrument and retest K+ if not consistent with clinical signs and symptoms. Current Interpretive Data was last revised on 2023. Cl, POC 116(H) 97 - 110 mmol/L [facility] Ionized Ca, POC 4.84 4.50 - 5.10 mg/dL [facility] Glucose, POC 195 70 - 199 mg/dL [facility] Lactate POC 4.8(C) 0.7 - 2.0 mmol/L [facility] SO2 (eber) arterial 99(H) 90 - 95 % [facility] Base excess, POC -8.4 mmol/L [facility] Hct, POC 28.0(L) 36.3 - 45.3 % [facility] Total Hb, POC 9.4(L) 11.9 - 15.5 g/dL [facility] Blood 01/06/2025 7:02 PM CDT 01/06/2025 7:02 PM CDT us Killian Dumont MD LAB POCT ORDERABLES - MATEUS CE Final Result [facility] One [facility] [place] [address] * XR Spine Lumbar 2 or 3 [...] Transfuse RBC (01/06/2025 6:04 PM CDT) Blood us Bobby Meza MD BLOOD TRANSFUSION ORDERABLES Final Result [facility] One [facility] Department [place] [address] * (ABNORMAL) POC Blood Gas and Chemistries, Arterial - (01/06/2025 5:31 PM CDT) pH, Art POC 7.33(L) 7.35 - 7.45 pCO2, Art POC 33(L) 35 - 45 mmHg [facility] pO2, Art POC 144(H) 83 - 108 mmHg [facility] Na, POC 143 135 - 145 mmol/L [facility] K POC 4.4 3.3 - 4.9 mmol/L [facility] Comment: Interpretive Data Not all point of care methods assess for hemolysis. Confirm with instrument and retest K+ if not consistent with clinical signs and symptoms. Current Interpretive Data was last revised on 2023. Cl, POC 113(H) 97 - 110 mmol/L [facility] Ionized Ca, POC 5.55(H) 4.50 - 5.10 mg/dL [facility] Glucose, POC 227(H) 70 - 199 mg/dL [facility] Lactate POC 5.0(C) 0.7 - 2.0 mmol/L [facility] SO2 (eber) arterial 99(H) 90 - 95 % [facility] Base excess, POC -7.7 mmol/L [facility] Hct, POC 29.0(L) 36.3 - 45.3 % [facility] Total Hb, POC 9.8(L) 11.9 - 15.5 g/dL [facility] Blood 01/06/2025 5:31 PM CDT 01/06/2025 5:31 PM CDT us Killian Dumont MD LAB POCT ORDERABLES - MATEUS CE Final Result [facility] One [facility] [place] [address] * XR Spine Lumbar 2 or 3 [...] plasma: 2 Units (01/06/2025 4:54 PM CDT) [facility] Product code [id number] Unit Number [id number] [facility] Product Blood Type ANEG [facility] Dispense Status PRESUMED TRANSFUSED [facility] Blood Venous blood specimen / Unknown 01/06/2025 4:54 PM CDT 01/06/2025 4:54 PM CDT Narrative [facility] - 01/07/2025 8:00 AM CDT Other indication->surgery Date required:-[id number] FFP # of Units:-2-Units Reasons:-Other (Specify)} Bobby Meza MD BLOOD BANK PRODUCT ORDERABLES Final Result Performing Organization Address City/[facility] Co de Phone Number [facility] Department [place] [address] * Transfuse RBC (01/06/2025 4:51 PM CDT) Blood Bobby Meza MD BLOOD TRANSFUSION ORDERABLES Final Result Performing Organization Address [facility] de Phone Number [facility] Department of Mobile System [address] [place] [address] * (ABNORMAL) POC Blood Gas and Chemistries, Arterial - (01/06/2025 4:26 PM CDT) [facility] pH, Art POC 7.34(L) 7.35 - 7.45 pCO2, Art POC 37 35 - 45 mmHg [facility] pO2, Art POC 146(H) 83 - 108 mmHg [facility] Na, POC 142 135 - 145 mmol/L [facility] K POC 4.7 3.3 - 4.9 mmol/L [facility] Comment: Interpretive Data Not all point of care methods assess for hemolysis. Confirm with instrument and retest K+ if not consistent with clinical signs and symptoms. Current Interpretive Data was last revised on 2023. Cl, POC 111(H) 97 - 110 mmol/L [facility] Ionized Ca, POC 4.15(L) 4.50 - 5.10 mg/dL [facility] Glucose, POC 267(H) 70 - 199 mg/dL [facility] Lactate POC 5.0(C) 0.7 - 2.0 mmol/L [facility] SO2 (eber) arterial 100(H) 90 - 95 % [facility] Base excess, POC -5.3 mmol/L [facility] Hct, POC 30.0(L) 36.3 - 45.3 % [facility] Total Hb, POC 9.9(L) 11.9 - 15.5 g/dL [facility] Blood 01/06/2025 4:26 PM CDT 01/06/2025 4:26 PM CDT us Killian Dumont MD LAB POCT ORDERABLES - MATEUS CE Final Result Performing Organization Address City/[facility]/ZIP Co de Phone Number [facility] [address] [place] [address] * Transfuse plasma (01/06/2025 4:06 PM CDT) Blood Bobby Meza MD BLOOD TRANSFUSION ORDERABLES Final Result [facility] Department of Mobile System [address] [place] [address] * Transfuse RBC (01/06/2025 4:04 PM CDT) Blood Bobby Meza MD BLOOD TRANSFUSION ORDERABLES Edited Result - Final Performing Organization Address City/[facility]/ZIP Co de Phone Number [facility] Department [place] [address] * Transfuse plasma (01/06/2025 3:20 PM CDT) Blood Bobby Meza MD BLOOD TRANSFUSION ORDERABLES Final Result [facility] Department [place] [address] * Transfuse RBC (01/06/2025 3:15 PM CDT) Blood Bobby Meza MD BLOOD TRANSFUSION ORDERABLES Edited Result - Final Performing Organization Address City/[facility]/ZIP Co de Phone Number [facility] Department [place] [address] * (ABNORMAL) POC Blood Gas and Chemistries, Arterial - (01/06/2025 2:33 PM CDT) pH, Art POC 7.32(L) 7.35 - 7.45 pCO2, Art POC 36 35 - 45 mmHg [facility] pO2, Art POC 156(H) 83 - 108 mmHg [facility] Na, POC 141 135 - 145 mmol/L [facility] K POC 4.5 3.3 - 4.9 mmol/L [facility] Comment: Interpretive Data Not all point of care methods assess for hemolysis. Confirm with instrument and retest K+ if not consistent with clinical signs and symptoms. Current Interpretive Data was last revised on 2023. Cl, POC 112(H) 97 - 110 mmol/L [facility] Ionized Ca, POC 5.01 4.50 - 5.10 mg/dL [facility] Glucose, POC 235(H) 70 - 199 mg/dL [facility] Lactate POC 4.4(C) 0.7 - 2.0 mmol/L [facility] SO2 (eber) arterial 99(H) 90 - 95 % [facility] Base excess, POC -6.9 mmol/L [facility] Hct, POC 28.0(L) 36.3 - 45.3 % [facility] Total Hb, POC 9.4(L) 11.9 - 15.5 g/dL [facility] Blood 01/06/2025 2:33 PM CDT 01/06/2025 2:33 PM CDT Killian Dumont MD LAB POCT ORDERABLES - MATEUS CE Final Result [facility] Department [place] [address] * FL Fluoroscopy < 1 Hour (01/06/2025 2:23 PM CDT) Narrative [facility] - 01/06/2025 2:23 PM CDT The images from this study are not interpreted by Radiology. Please refer to the physician's procedure / OR operative note. Killian Dumont MD IMG FLUOROSCOPY PROCEDURES Final Result Performing Organization Address City/[facility] Co de Phone Number [email or web address] * (ABNORMAL) POC Blood Gas and Chemistries, Arterial - (01/06/2025 12:31 PM CDT) pH, Art POC 7.28(L) 7.35 - 7.45 pCO2, Art POC 34(L) 35 - 45 mmHg [facility] pO2, Art POC 156(H) 83 - 108 mmHg [facility] Na, POC 141 135 - 145 mmol/L [facility] K POC 4.1 3.3 - 4.9 mmol/L [facility] Comment: Interpretive Data Not all point of care methods assess for hemolysis. Confirm with instrument and retest K+ if not consistent with clinical signs and symptoms. Current Interpretive Data was last revised on 2023. Cl, POC 114(H) 97 - 110 mmol/L [facility] Ionized Ca, POC 4.61 4.50 - 5.10 mg/dL [facility] Glucose, POC 250(H) 70 - 199 mg/dL [facility] Lactate POC 2.8(H) 0.7 - 2.0 mmol/L [facility] SO2 (eber) arterial 99(H) 90 - 95 % [facility] Base excess, POC -9.8 mmol/L [facility] Hct, POC 30.0(L) 36.3 - 45.3 % [facility] Total Hb, POC 10.1(L) 11.9 - 15.5 g/dL [facility] Blood 01/06/2025 12:3 1 PM CDT 01/06/2025 12:31 PM CDT us Killian Dumont MD LAB POCT ORDERABLES - MATEUS CE Final Result [facility] One [facility] Department [place] [address] * XR Spine Lumbar 1 View (01/06/2025 [...] IMG XR PROCEDURES Final Re sult * [place] AN PROCEDURE PLACEHOLDER (01/06/2025 10:49 AM CDT) Ruben Guerra, RIC - 01/06/2025 10:49 AM CDT Ruben Ramírez [...] MD ANESTHESIA ORDERAB LES Final Result * [place] AN PROCEDURE PLACEHOLDER (01/06/2025 10:48 AM CDT) [...] MD ANESTHESIA ORDERAB LES Final Result * [place] AN PROCEDURE PLACEHOLDER (01/06/2025 10:47 AM CDT) Ruben Guerra RN - 01/06/2025 10:47 AM CDT Ruben [...] plasma: 2 Units (01/06/2025 9:56 AM CDT) Product code [id number] Unit Number [id number] [facility] Product Blood Type OPOS [facility] Dispense Status PRESUMED TRANSFUSED [facility] Product code [id number] [facility] Unit Number [id number] [facility] Product Blood Type OPOS [facility] Dispense Status PRESUMED TRANSFUSED [facility] Blood Venous blood specimen / Unknown 01/06/2025 9:56 AM CDT 01/06/2025 9:57 AM CDT Narrative [facility] - 01/07/2025 12:56 AM CDT Date required:[id number] FFP # of Units:-2-Units Reasons:-High risk of life threatening bleeding, INR us Bobby Meza MD BLOOD BANK PRODUCT ORDERABLES Final Result [facility] One [facility] Department [place] [address] * Prepare RBC: 4 Units (01/06/2025 9:56 AM CDT) Product code [id number] [facility] Unit Number [id number] [facility] Product Blood Type OPOS [facility] Dispense Status PRESUMED TRANSFUSED [facility] Product code [id number] [facility] Unit Number [id number] [facility] Product Blood Type OPOS [facility] Dispense Status PRESUMED TRANSFUSED [facility] Product code [id number] Unit Number [id number] [facility] Product Blood Type OPOS [facility] Dispense Status PRESUMED TRANSFUSED [facility] Product code [id number] [facility] Unit Number [id number] [facility] Product Blood Type OPOS [facility] Dispense Status PRESUMED TRANSFUSED [facility] Blood 01/06/2025 9:56 AM CDT 01/06/2025 9:57 AM CDT Narrative [facility] - 01/07/2025 12:56 AM CDT Are special requirements needed? (All products are leukoreduced and CMV- safe)- >No Date required:-[id number] LRRBC # of Zijkr-0-[id number] Reasons:-Intra-op transfusion} us Bobby Meza MD BLOOD BANK PRODUCT ORDERABLES Final Result [facility] Department [place] [address] * [place] AN ELECTIVE ENDOTRACHEAL AIRWAY, [place] AN PROCEDURE PLACEHOLDER (01/06/2025 9:47 AM CDT) [...] POC 49(H) 35 - 45 mmHg [facility] pO2, Art POC 123(H) 83 - 108 mmHg [facility] Na, POC 140 135 - 145 mmol/L [facility] K POC 4.0 3.3 - 4.9 mmol/L [facility] Comment: Interpretive Data Not all point of care methods assess for hemolysis. Confirm with instrument and retest K+ if not consistent with clinical signs and symptoms. Current Interpretive Data was last revised on 2023. Cl, POC 111(H) 97 - 110 mmol/L [facility] Ionized Ca, POC 4.58 4.50 - 5.10 mg/dL [facility] Glucose, POC 181 70 - 199 mg/dL [facility] Lactate POC 2.3(H) 0.7 - 2.0 mmol/L [facility] SO2 (eber) arterial 100(H) 90 - 95 % [facility] Base excess, POC -5.9 mmol/L [facility] Hct, POC 39.0 36.3 - 45.3 % [facility] Total Hb, POC 13.1 11.9 - 15.5 g/dL [facility] Blood 01/06/2025 9:39 AM CDT 01/06/2025 9:39 AM CDT Killian Dumont MD LAB POCT ORDERABLES - MATEUS CE Final Result Performing Organization Address [facility] [place] [address] * Type and screen (01/06/2025 6:50 AM CDT) Maribell, indirect Negative ABO Rh O Positive [facility] Blood 01/06/2025 6:50 AM CDT 01/06/2025 7:07 AM CDT Narrative [facility] - 01/06/2025 8:03 AM CDT Has the patient had Daratumumab or Isatuximab in the past 6 months?->Unknown Gonzalo Hsu NP LAB BLOOD BANK TEST ORDE RABLES Final Result Performing Organization Address [facility] de Phone Number [facility] [place] [address] * Prepare RBC: 2 Units (01/06/2025 6:17 AM CDT) Product code [id number] Unit Number [id number] [facility] Product Blood Type OPOS [facility] Dispense Status PRESUMED TRANSFUSED [facility] Blood 01/06/2025 6:17 AM CDT 01/06/2025 6:17 AM CDT Narrative [facility] - 01/07/2025 8:00 AM CDT Specify Procedure:->[id number] Are special requirements needed? (All products are leukoreduced and CMV- safe)- >No Date required:-[id number] LRRBC # of Lnbje-2-Uouii Reasons:-Hold for procedure (specify procedure)} Gonzalo Hsu NP BLOOD BANK PRODUCT ORDER BRINDA Final Result Performing Organization Address [facility] de Phone Number [facility] Department [place] [address] * IR Central Line Placement > 5 [...] was obtained. Prior to beginning the procedure, [place] Protocol was used to confirm the patient's [...] was obtained. Prior to beginning the procedure, [place] Protocol was used to confirm the patient's [...] Margot Ramirez PA-C us Killian Dumont MD IM IR PROCEDURES Final Re sult * XR [...] with the apex at the L1. The Marnia Angle was determined to be 22 degrees. [...] 12 rib bearing thoracic vertebra and 5 blv-huc-pmsduvx lumbar vertebra are present. There is a [...] 12 rib bearing thoracic vertebra and 5 hcv-ecq-loyddgx lumbar vertebra are present. There is a [...] L2-3. Electronically signed by: Ilir Alexander M.D. us Killian Dumont MD IMG CT PROCEDURES Final Re sult * TYPE AND SCREEN 14 DAY (12/22/2024 3:33 PM CDT) ABO Rh O Positive Maribell, indirect Negative [facility] Blood 12/22/2024 3:33 PM CDT 12/22/2024 4:42 PM CDT Narrative [facility] - 12/22/2024 5:48 PM CDT Has the patient had Daratumumab or Isatuximab in the past 6 months?->Unknown Is this test being ordered in advance for a procedure?->Yes Expected date of procedure:->01/06/25 Has the patient been transfused in the past 3 months?->No Has the patient been in the past 3 months?->No us Gonzalo Hsu NP LAB BLOOD BANK TEST JIN ESTRADA Final Result [facility] One [facility] [place] [address] * (ABNORMAL) eGFR (12/22/2024 3:33 PM CDT) Pathologist [facility] eGFR 50(L) >=60 mL/min/1. 73 m2 Comment: [...] MD LAB BLOOD ORDERABLES Final Result [facility] One [facility] [place] [address] * Differential, auto (12/22/2024 3:33 PM CDT) Pathologist [facility] Neutrophil abs 6.08 1.50 - 6.50 K/cumm Imm gran abs 0.07 0.00 - 0.10 K/cumm [facility] Lymphocyte abs 1.89 0.80 - 3.30 K/cumm [facility] Monocyte abs 0.65 0.20 - 0.80 K/cumm [facility] Eosinophil abs 0.07 0.00 - 0.50 K/cumm [facility] Basophil abs 0.03 0.00 - 0.10 K/cumm [facility] Neutrophil pct 69.2 % [facility] Comment: Interpretive Data Percent cell count reference ranges are not reported, since discordance with absolute values may lead to misinterpretation of CBC data. Current Interpretive Data was last revised on 2017. Imm gran pct 0.8 % [facility] Comment: Interpretive Data Percent cell count reference ranges are not reported, since discordance with absolute values may lead to misinterpretation of CBC data. Current Interpretive Data was last revised on 2017. Lymphocyte pct 21.5 % [facility] Comment: Interpretive Data Percent cell count reference ranges are not reported, since discordance with absolute values may lead to misinterpretation of CBC data. Current Interpretive Data was last revised on 2017. Monocyte pct 7.4 % [facility] Comment: Interpretive Data Percent cell count reference ranges are not reported, since discordance with absolute values may lead to misinterpretation of CBC data. Current Interpretive Data was last revised on 2017. Eosinophil pct 0.8 % [facility] Comment: Interpretive Data Percent cell count reference ranges are not reported, since discordance with absolute values may lead to misinterpretation of CBC data. Current Interpretive Data was last revised on 2017. Basophil pct 0.3 % [facility] Comment: Interpretive Data Percent cell count reference ranges are not reported, since discordance with absolute values may lead to misinterpretation of CBC data. Current Interpretive Data was last revised on 2017. Blood 12/22/2024 3:33 PM CDT 12/22/2024 4:38 PM CDT us Killian Dumont MD LAB BLOOD ORDERABLES Final Result [facility] One [facility] [place] [address] * Urinalysis reflex to microscopic and culture Urine, bladder (12/22/2024 3:33 PM CDT) Color, ur Straw Yellow Clarity, ur Clear Clear [facility] Specific gravity, ur 1.011 1.003 - 1.030 [facility] pH, urine 6.0 [facility] Comment: Interpretive Data U rine pH is affected by diet, medications, systemic acid-base disturbances, and renal tubular function. pH may affect urinary stone formation. For example, urine pH below 6.0 may help reduce the tendency for calcium phosphate stones and pH greater than 6.0 may reduce the tendency for uric acid stone formation. Source: [facility] Current Interpretive Data was last revised on 2017 Protein, ur ql Negative Negative [facility] Glucose, ur ql Negative Negative [facility] Ketones, ur Negative Negative [facility] Bilirubin, ur Negative Negative [facility] Blood, ur Negative Negative [facility] Urobilinogen, ur <2.0 <2.0 mg/dL [facility] Nitrite, ur Negative Negative [facility] Leukocyte esterase, ur Negative Negative [facility] UA reflex comment Reflex conditions for microscopic UA and culture not met. [facility] Urine, bladder 12/22/2024 3: 33 PM CDT 12/22/2024 4:30 PM CDT us Killian Dumont MD LAB MICROBIOLOGY - GENERAL ORDERABLES Final Result [facility] One [facility] [place] [address] * CBC with auto differential (12/22/2024 3:33 PM CDT) WBC 8.79 3.80 - 9.90 K/cumm Hgb 14.4 11.9 - 15.5 g/dL [facility] Hct 43.2 35.6 - 45.5 % [facility] Plt 230 150 - 400 K/cumm [facility] MPV 10.1 9.1 - 12.3 fL [facility] RBC 4.57 3.90 - 5.20 M/cumm [facility] MCV 94.5 81.3 - 96.4 fL [facility] MCH 31.5 27.1 - 33.3 pg [facility] MCHC 33.3 32.3 - 35.7 g/dL [facility] RDW CV 13.2 11.1 - 14.9 % [facility] RDW SD 45.9 35.7 - 48.1 fL [facility] NRBC abs 0.00 0.00 - 0.01 K/cumm [facility] Blood 12/22/2024 3:33 PM CDT 12/22/2024 4:38 PM CDT Killian Dumont MD LAB BLOOD ORDERABLES Final Result Performing Organization Address City/[facility]/ZIP Co de Phone Number [facility] [address] [place] [address] * Nicotine metabolite screen, urine (12/22/2024 3:33 PM CDT) Pathologist [facility] Nicotine, ur <5.0 <5.0 ng/mL [facility] Cotinine, ur <5.0 <5.0 ng/mL [facility] Anabasine ur <2.0 <2.0 ng/mL [facility] Comment: ADDITIONAL INFORMATION This test was developed and its performance characteristics determined by [facility] in a manner consistent with CLIA requirements. This test has not been cleared or approved by the U.S. Food and Drug Administration. Test Performed by: [facility] [place] [address] Head Chopper: Shae Calzada Ph.D.; CLIA# [id number] Nornicotine, ur <2.0 <2.0 ng/mL [facility] Urine 12/22/2024 3:33 PM CDT 12/22/2024 4:45 PM CDT Killian Dumont MD LAB URINE ORDERABLES Final Result Performing Organization Address City/[facility]/ZIP Co de Phone Number [facility] Department of Mobile System [address] [place] [address] [facility] ref [facility] * Vitamin D 25 hydroxy (12/22/2024 3:33 PM CDT) [facility] Vitamin D 25-OH 31 30 - 80 ng/mL Blood 12/22/2024 3:33 PM CDT 12/22/2024 4:38 PM CDT Killian Dumont MD LAB BLOOD ORDERABLES Final Result Performing Organization Address [facility] Co de Phone Number [facility] [place] [address] * Erythrocyte sedimentation rate (12/22/2024 3:33 PM CDT) [facility] Erythrocyte sedimentation rate 19 1 - 30 mm/hr Blood 12/22/2024 3:33 PM CDT 12/22/2024 4:38 PM CDT Killian Dumont MD LAB BLOOD ORDERABLES Final Result Performing Organization Address [facility] de Phone Number [facility] [address] [place] [address] * CRP (acute phase) (12/22/2024 3:33 PM CDT) [facility] CRP 7.0 <=10.0 mg/L Blood 12/22/2024 3:33 PM CDT 12/22/2024 4:38 PM CDT Killian Dumont MD LAB BLOOD ORDERABLES Final Result Performing Organization Address [facility] [place] [address] * (ABNORMAL) Hemoglobin A1c (12/22/2024 3:33 PM CDT) [facility] Hgb A1C 6.7(H) 4.0 - 5.6 % Estimated Average Glucose 146 mg/dL [facility] Comment: The ADA recommends reporting an [...] MD LAB BLOOD ORDERABLES Final Result [facility] One [facility] Department [place] [address] * (ABNORMAL) Comprehensive metabolic panel (12/22/2024 3:33 PM CDT) Sodium 141 135 - 145 mmol/L Potassium, pl 4.6 3.3 - 4.9 mmol/L [facility] Chloride 102 97 - 110 mmol/L [facility] CO2 28 22 - 32 mmol/L [facility] Anion gap 11 2 - 15 mmol/L [facility] BUN 33(H) 6 - 25 mg/dL [facility] Creatinine 1.16(H) 0.60 - 1.10 mg/dL [facility] Glucose 106 70 - 199 mg/dL [facility] Comment: Interpretive Data Fasting glucose >/= [...] 2022. Calcium 10.1 8.5 - 10.3 mg/dL [facility] Bilirubin, total 0.4 0.1 - 1.2 mg/dL [facility] Protein, pl 7.9 6.5 - 8.5 g/dL [facility] Albumin 4.4 3.5 - 5.0 g/dL [facility] Alk phos 93 40 - 130 Units/L [facility] ALT 18 7 - 45 Units/L [facility] AST 18 10 - 45 Units/L [facility] Blood 12/22/2024 3:33 PM CDT 12/22/2024 4:38 PM CDT us Killian Dumont MD LAB BLOOD ORDERABLES Final Result [facility] One [facility] [place] [address] * XR Scoliosis 4 or 5 View [...] vertebral body is nonspecific and unchanged from 2022. LUMBAR DISCS: Multilevel degenerative disc disease at the non fused levels, most pronounced and guol-gf-wyfxqoil at L2-L3 . LUMBAR HARDWARE: L3-L5 posterior [...] joint effusions. Ligamentum flavum thickening. Epidural lipomatosis. Yquh-hl-rxwtvnzk right and bhhq-pa-rvkwoiut left neural foraminal stenosis. Moderate spinal canal [...] severe left facet arthropathy. Mild right and gsoy-my-nfrdmvxq left neural foraminal stenosis. No significant spinal [...] Tonny Napier M.D. MZ: CRISTHIAN Report ID: [id number] Reading Location: [place] [address] Procedure Note Tonny Napier MD - 12/21/2024 [...] at the non fusedlevels, most pronounced and pplh-yx-rvhcfzgu at L2-L3 . LUMBAR HARDWARE: L3-L5 posterior [...] joint effusions. Ligamentum flavum thickening. Epidural lipomatosis. Pvae-uq-oaskapxm right and yirc-st-nzygcroi left neural foraminalstenosis. Moderate spinal canal stenosis [...] severe left facet arthropathy. Mild right and rlpi-nb-ycgyfbpu leftneural foraminal stenosis. No significant spinal canal [...] Electronically signed by Tonny Napier M.D. MZ: MZ Report ID: [id number] Reading Location: [place] [address] Killian Dumont MD IMG MRI PROCEDURES Final [...] the non fused levels, most pronounced and vlxf-yz-tvofkwtm at L2-L3 . LUMBAR HARDWARE: L3-L5 posterior [...] joint effusions. Ligamentum flavum thickening. Epidural lipomatosis. Zqgm-qu-kqrpkzvs right and ganl-cl-tiycexop left neural foraminal stenosis. Moderate spinal canal [...] severe left facet arthropathy. Mild right and enix-yw-aznvefus left neural foraminal stenosis. No significant spinal [...] Tonny Napier M.D. MZ: CRISTHIAN Report ID: [id number] Reading Location: [place] [address] Procedure Note Tonny Napier MD - 12/21/2024 [...] at the non fusedlevels, most pronounced and enqm-fj-knuxtddz at L2-L3 . LUMBAR HARDWARE: L3-L5 posterior [...] joint effusions. Ligamentum flavum thickening. Epidural lipomatosis. Dlnu-xw-gnkarndm right and ocjc-vs-kzurmaby left neural foraminalstenosis. Moderate spinal canal stenosis [...] severe left facet arthropathy. Mild right and gmej-mj-wemurtkb leftneural foraminal stenosis. No significant spinal canal [...] Electronically signed by Tonny Napier M.D. MZ: MZ Report ID: [id number] Reading Location: [place] [address] Killian Dumont MD [facility] [place] PROCEDURES Final R esult * CT [...] M.D. JOSE EDUARDO: JOSE EDUARDO Report ID: [id number] Reading Location: [place] [address] Procedure Note Hilario Villanueva MD - 12/28/2024 [...] M.D. JOSE EDUARDO: JOSE EDUARDO Report ID: [id number] Reading Location: [place] [address] Killian Dumont MD IMG CT PROCEDURES Final Re sult * Dexa TBS Axial Skeleton Bone Density 1 or more sites (08/27/2024 2:37 PM CDT) Anatomical Region Laterality Modality Wrist, Body N/A Radiographic Joseline ging Narrative 08/27/2024 4:58 PM CDT Patient Name: Evelyn Gil Date of : 1955 Date of scan: 08/27/2024 Bone mineral density was performed on a [employer] Discovery Densitometer. Based on machine cross-calibration and [...] mineral density scan were prepared by Taya Del Toro(Arya) CBDT who is accredited by the International Society of Clinical Densitometry. The overall patient assessment and scan interpretation were performed by Rocío Elkins M.D. who is certified by the International Society of Clinical Densitometry. [id number] us Killian Dumont MD [facility] DXA PROCEDURES Final R esult * Screening [...] compared to prior imaging studies performed at [facility] on 01/11/2021, 02/22/2022 and 07/15/2023. The [...] compared to prior imaging studies performed at [facility] on 01/11/2021, 02/22/2022 and 07/15/2023. The [...] CDT PROCEDURE REPORT Patient: EVELYN GIL Account: [id number] Room No: : 1955 Patient Type: [facility] Attend.: Manny Rivera M.D. Admit Date: 02/02/2013 [...] Surveillance in 10 years. Manny Rivera M.D. / TD: 02/02/2013 11:02 CC: Dr. Killian Sousa Authenticated by Manny Rivera MD On 02/04/2013 10:22:42 AM Historical Provider ENDOSCOPY PROCEDURES Renee l Result from Last 3 Months or Most Recently Relevant to Health Maintenance Insurance [facility]ICARE [facility] H[facility] REF [facility] MEDICARE ADVANTAGE Advance Directives For more information, please contact: [phone] * Full Code (Latest Code Status on File) Date Activated Date Inactivated Comments 01/09/2025 5:43 PM 01/14/2025 10:35 PM * Full Code Date Activated Date Inactivated Comments 01/06/2025 9:38 PM 01/09/2025 5:43 PM * Full Code Date Activated Date Inactivated Comments 01/05/2025 7:51 AM 01/06/2025 5:13 AM * Full Code Date Activated Date Inactivated Comments 10/08/2022 2:07 PM 10/11/2022 8:50 PM Care Teams Cooler Room Worker Relationship Specialty Start Date End Date Carlos Ramesh MD PCP - General Internal Medicine 12/29/20 Shahnaz Simpson NP Nurse Practitioner Nurse Practitioner 03/01/21
[2025-03-17 16:14] LABS: Alanine Aminotransferase 15 U/L (6-35); Albumin Level 3.7 g/dL (3.5-5.1); Alkaline Phosphatase 91 U/L (38-126); Anion Gap 8 mmol/L (4-12); Aspartate Amino Transferase 24 U/L (14-36); Blood Urea Nitrogen 27 mg/dL (7-17); Calcium 8.4 mg/dL (8.4-10.2); Carbon Dioxide 28 mmol/L (22-30); Chloride 106 mmol/L (98-107); Estimated Glomerular Filt Rate 30; Glucose 134 mg/dL (65-110); Osmolality Calculated 301 mOsm/kg (285-295); Potassium 3.3 mmol/L (3.4-5.0); Sodium 142 mmol/L (137-145); Total Protein 6.4 g/dL (6.3-8.2)
[2025-03-17 16:35] LABS: Hematocrit 31.8 % (35.0-42.0); Hemoglobin 9.8 g/dL (11.7-13.8); Mean Corpuscular HGB Conc 30.8 g/dL (32-36); Mean Corpuscular Hemoglobin 30.0 pg (27.0-31.0); Mean Corpuscular Volume 97.2 fL (78.0-102.0); Platelet Count Result 254 K/mm3 (150-420); Red Blood Count 3.27 M/mm3 (4.20-5.40); White Blood Count 6.7 K/mm3 (4.8-10.8)
[2025-03-22 13:34] LABS: Bilirubin,Total < 0.1 mg/dL (0.2-1.3)
== END 2025-03-17 15:59 | disposition home or self-care (01) ==
LOC: CHSHH 16:00
PROVIDERS: PCP Internal Medicine; Visit Provider Internal Medicine
DX: N18.2 Chronic kidney disease, stage 2 (mild) (principal)
CPT/HCPCS: 36415; 80053; 85027

== ENCOUNTER 2025-04-01 12:27 | Outpatient (NON) | payer MEDICARE, SELFPAY ==
--- OUTSIDE RECORDS SUMMARY | 2025-04-01 12:30 | XMS_ITS | Clinical Summary ---
Author Organization [facility] Address [address] [address] Care Team Providers Care Administrative Volunteer Name Role Phone Isaac Shannon MD Primary Care Provider Gian mancuso Source Comments [facility],non-owned Affiliates and Associated Physician Practices is amultiple site organization consisting of ambulatory clinics and hospital sitesin [place], [place], [place] and [place]. This disclosure is being madepursuant to the Care Everywhere program and may not contain all information available regarding this patient. Last updated 18.[facility] Allergies No known active allergies Medications * [...] DEPRESSION SCREENING 05/05/2024 COVID-19 VACCINE (1 - 2024-2 6 season) 2025 INFLUENZA VACCINE (#1) 2025 Respiratory [...] patient's age to complete this topic Insurance [facility] Care Teams Administrative Volunteer Relationship Specialty Start Date End Date Isaac Shannon MD PCP - General Anesthesiology 07/07/13
--- OUTSIDE RECORDS SUMMARY | 2025-04-01 12:30 | XMS_ITS | Clinical Summary ---
Author Organization [facility] Address [address] [place] [address] Phone Care Team Providers Care Machinist Set Up Name Role Phone Carlos Ramesh MD Primary Care Provider [phone] Allergies Active Allergy Reactions Criticality Noted Date Comments Regadenoson Anxiety Low 05/21/2021 [place] like having a heart attack Medications amitriptyline [...] chloride (SALINE NASAL BOTH NOSTRIL) Administer 1 [place] in each nostril daily. Active HYDROcodone-jo ann taminophen (NORCO) 5-325 mg tabletIndicatio ns:Failure of spinal cord stimulator, initial encounter Take 1 Tablet by mouth every 4 hours as needed for Pain, Moderate. 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 Immunizations Immunization Administration Dates Next Due (Epic!) COVID-19 VACCINE - EMERGENCY USE AUTHORIZATION, AD26,COV2S(PF) [...] INFLUENZA VACCINE (#1) 2024 03/06/2021 COVID-19 Vaccine ( - season) 2025, 08/10/2020 RSV VACCINE (60+ or ) (1 - 1-dose 75+ series) 01/20/2028 Medical Devices Implanted Type Area Building Maintenance Worker Device Identifier Shelf Expiration Date Model / Serial / Lot Hemostatic Surgiflo 8ml W/ Thrombin 2994 - [id number] Implanted:Qty : 1 on 07/19/2021 by Mely Hernandez MD at [facility] Hemostatic N/A: Back [employer] [id number] 11/01/2022 2994 / / [id number] Sealant Floseal W/ Adptr 10ml [id number] - [id number] Implanted:Qty : 1 on 11/12/2012 by Mely Hernandez MD at [facility] Sealant N/A: Spine Lumbar BEARD- BIOSCIENCE 02/01/2014 [id number] / / [id number] Gautam Thr-10/17/2013 Implanted: (Quantity not on file) Description:10/2013 & 03/2014 Explanted Type Area Building Maintenance Worker Device Identifier Shelf Expiration Date Model / Serial / Lot Loranger Imjex Bumpy 17669 - [id number] Implanted:Qty: 1 on 11/12/2012 by Mely Hernandez MD at [facility] Explanted:Qty: 1 on 07/19/2021 by Mely Hernandez MD at [facility] Loranger [employer]- NEUROLOGIC TECH 10/01/2016 [id number] / / [id number] Lead Specify 5-6-5 Kit 72410-25 - [id number] Implanted:Qty: 1 on 11/12/2012 by Mely Hernandez MD at [facility] Explanted:Qty: 1 on 07/19/2021 at [facility] Lead [employer]- NEUROLOGIC TECH 03/13/2016 [id number] / / [id number] Sys Recharge Restore Pat [id number] - [id number] Implanted:Qty: 1 on 11/12/2012 by Mely Hernandez MD at [facility] Explanted:Qty: 1 on 07/19/2021 at [facility] Neuro [employer]- NEUROLOGIC TECH 02/18/2016 53676 / [id number] / Sensor Restore Neurostimulator 13443 - [id number] Implanted:Qty: 1 on 11/12/2012 by Mely Hernandez MD at [facility] Explanted:Qty: 1 on 07/19/2021 at [facility] Neuro [employer] [place] 04/17/2013 3771 4 / [id number] / Shoemaker Apprentice Pat Mystim 21343 - [id number] Implanted:Qty: 1 on 11/12/2012 by Mely Hernandez MD at [facility] Explanted:Qty: 1 on 07/19/2021 by Mely Hernandez MD at [facility] Neuro [employer] NEUROLOGIC PAIN MGMT [id number] / [id number] / Insurance [facility] DUAL COMPLETE PPO DSNP [facility] [id number] RX [employer] RX Member Subscriber Plan / Payer (Ef fective 2020-Present) Name:Evelyn GilAlexandra Relation to Subscriber:Self Name:Evelyn Gil Payer ID:Not on file Group ID:[id number] Type:RX Medicare Part D Address: [address] Advance Directives For more information, please contact: [phone] * Full Code (Latest Code Status on File) Date Activated Date Inactivated Comments 07/19/2021 7:44 AM 07/19/2021 3:03 PM * Full Code Date Activated Date Inactivated Comments 11/12/2012 11:54 AM 11/12/2012 9:20 PM * Full Code Date Activated Date Inactivated Comments 11/12/2012 11:47 AM 11/12/2012 11:54 AM Care Teams Machinist Set Up Relationship Specialty Start Date End Date Carlos Ramesh MD [address] [place] [id number] PCP - General Internal Medicine 07/11/21
--- OUTSIDE RECORDS SUMMARY | 2025-04-01 12:30 | XMS_ITS | Continuity of Care Document ---
Author Organization [employer] [facility] Address [address] [place] [address] Problems Condition ICD9 code ICD10 code SNOMED code Start Date End Date S tatus Results No Results Allergies, adverse reactions, alerts Substance Reaction Date Status Type No allergies have been recorded Non Drug Medications No administered medications reported Vital Signs No vital signs reported Social History No smoking Hx information available Encounters Type CPT Code Date Location Provider Indication s encounter report 01/14/2025 06:3 6 PM - 02/04/2025 11:29 AM Zhao Mathew MD
--- OUTSIDE RECORDS SUMMARY | 2025-04-01 12:31 | XMS_ITS | Clinical Summary ---
Author Organization [facility] Address [address] [place] [id number] Care Team Providers Care Social Work Msw Name Role Phone Unavailable Primary Care Provider [...] patient's age to complete this topic Insurance [facility]
--- OUTSIDE RECORDS SUMMARY | 2025-04-01 12:31 | XMS_ITS | Clinical Summary ---
Author Organization [facility] Medical Office Building [address] Address [address] [place] [address] Care Team Providers Care Underground Foreman Name Role Phone Carlos Ramesh MD Primary Care Provider [phone] Shahnaz Simpson NP Unavailable [phone] Allergies Active Allergy Reactions Criticality Noted Date Comments Regadenoson Other (See comments),Anxiety Low 05/21/2021 Reaction: MUSCLE WEAK, ACHE, [place] like having a heart attack Medications SUMAtriptan (IMITREX) 100 mg tablet take 1 tablet by oral route once with fluids as early as possible after the onset of a migraine attack;may repeat after 2 hours if headache returns, not to exceed 200mgin 24hrs 0 0 08/17/19 14 Active levothyroxine (SYNTHROID) 112 mcg tablet Take 1 tablet (112 mcg total) by mouth chief dietitian before breakfast 02/22/20 21 Active fexofenadine (ANA [...] times a day 0 10/22/19 23 Active blood-glucose meter kit Use as directed. 1 kit 01/15/20 25 Active lancets misc Use as directed up to 4 times a day. 100 each 1 01/15/20 25 Active diphenhydrAMINE (BENADRYL) 25 mg capsuleIndication s:Urticaria Take 1 tablet/capsule (25 mg total) by mouth every 6 (six) hours as needed for itching 30 capsule 01/15/20 25 Active gabapentin (NEURONTIN) 100 mg capsuleIndication s:Pain Take 1 capsule (100 mg total) by mouth every 8 (eight) hours 90 capsule 01/15/20 25 Active multivit tzvinuqw-hlpf-YS- calcium (THERA-M) 9 mg iron-400 mcg tabletIndications :Vitamin Deficiency Prevention Take 1 tablet by mouth daily 30 tablet 01/16/20 25 Active polyethylene glycol (MIRALAX) 17 gram/dose bulk powderIndications :constipation Take 17 g by mouth daily 510 g 01/15/20 25 Active senna-docusate (PERICOLACE) 8.6-50 mgIndications:con stipation Take 2 tablets by mouth 2 (two) times a day 120 tablet 01/15/20 25 Active bisacodyL (DULCOLAX) 10 mg suppositoryIndica tions:constipatio n Insert 1 suppository (10 mg total) into [...] for pain 42 tablet 03/08/20 25 Active amLODIPine (NORVASC) 5 mg tablet Take 1 tablet (5 mg total) by mouth 02/26/20 25 Active apixaban (ELIQUIS) 5 mg tablet Take 1 tablet (5 mg total) by mouth 02/26/20 25 Active famotidine (PEPCID) 20 mg tablet Take 1 tablet (20 mg total) by mouth 02/26/20 25 Active losartan (COZAAR) 25 mg tablet Take 1 tablet (25 mg total) by mouth daily 03/11/20 25 Active ondansetron ODT (ZOFRAN-ODT) [address] 1 TAB (4MG) ON TOP OF THE TONGUE TO DISSOLVE, THEN SWALLOW EVERY 8 HOURS NEEDED Active potassium chloride ER 10 mEq CR tablet 03/18/20 25 Active losartan-hydrochl orothiazide (HYZAAR) 100-25 mg per tablet Take 1 tablet by mouth every morning 09/18/19 25 025 Disconti nued(Alt ernate therapy) oxyCODONE (ROXICODONE) 5 mg immediate release tablet 01/22/20 25 025 Disconti nued(Reo rder) Active Problems Problem Noted Date Diagnosed Date [...] discharge for education. --f/u with PCP 01/14 certified adaptive physical educator completed education. Delirium 01/10/2025 Assessment & [...] lumbar, and sacral fusion and decompressive laminectomy (I00-llzzcg). Operative course complicated by acute blood loss [...] lumbar, and sacral fusion and decompressive laminectomy (X07-gnljea). Operative course complicated by acute blood loss [...] lumbar, and sacral fusion and decompressive laminectomy (I13-hbqvfw). Operative course complicated by acute blood loss anemia and acute kidney injury. - Surgical post-operative management per primary team. Assessment & Plan (01/14/2025 4:41 PM CDT): --s/p Z97-vurink fusion and decompressive laminectomy on 01/06, closed [...] Encounters Date Type Department Care Team Description 03/21/2025 1:00 PM PSYCHOLOGY TEACHER Office Visit [facility] Orthopaedic Surgery [address] [facility] Medical Office Building [address] [place] [phone] Killian Dumont MD Fusion of spine of lumbar region; Flatback syndrome of lumbar region; Other form of scoliosis of lumbar spine; S/P lumbar spinal fusion 03/21/2025 12:24 PM PSYCHOLOGY TEACHER - 03/21/2025 11:59 PM PSYCHOLOGY TEACHER Hospital Encounter [facility] [address] [facility] [address] [place] [phone] Fusion of spine of lumbar region; Flatback syndrome of lumbar region; Other form of scoliosis of lumbar spine; S/P lumbar spinal fusion Discharge Disposition: Discharge to home or self care 02/16/2025 Telephone [facility] Orthopaedic Surgery [address] [place] [phone] Killian Dumont MD 02/02/2025 1:20 PM CDT Office Visit [facility] Orthopaedic Surgery [address] [facility] 6th [place] [address] [place] [address] Killian Dumont MD Fusion of spine of lumbar region; Flatback syndrome of lumbar region; Other form of scoliosis of lumbar spine 02/02/2025 12:55 PM CDT - 02/02/2025 11:59 PM CDT Hospital Encounter [facility] Radiology [facility] [address] [place] [address] Killian Dumont MD Fusion of spine of lumbar region; Flatback syndrome of lumbar region; Other form of scoliosis of lumbar spine Discharge Disposition: Discharge to home or self care 02/02/2025 Telephone [facility] Home Care Services [address] [place] [address] [address] [place] [phone] Unknown, Notinfile 01/21/2025 Telephone [facility] Orthopaedic Surgery [address] [facility] Medical Office [address] [place] [phone] Killian Dumont MD 01/12/2025 8:45 AM CDT Ancillary Procedure [facility] Vascular Lab IP [address] [facility] [address] [place] [address] 01/06/2025 7:30 AM CDT - 01/06/2025 7:00 PM CDT Surgery [facility] Operating Room [address] [place] [address] Killian Dumont MD FUSION DECOMPRESSION LAMINECTOMY WITH INSTRUMENTATION - Medtronic- Revision instrumented posterior spine fusion H48-sjkdwf/ilium, L2-L3 laminectomy/foraminoto my, L4-L5, L5-S1 PCO,, autograft, allograft, and bone morphogenetic protein- cut to close 9 hours 01/06/2025 7:29 AM CDT Anesthesia Event [facility] Operating Room [address] [place] [address] Bobby Esquivel MD Montgomery, Andrea J., NP 01/06/2025 5:48 AM CDT - 01/14/2025 6:35 PM CDT Hospital Encounter [address] [address] Killian Dumont MD Postoperative pain (Primary Dx); S/P lumbar spinal fusion; MOISÉS (obstructive sleep apnea); Flatback syndrome of lumbar region [M40.36] Discharge Disposition: Discharge to SNF 01/05/2025 7:39 AM CDT - 01/05/2025 11:59 PM CDT Hospital Encounter [facility] Radiology [facility] [place] [address] [place] [address] Killian Dumont MD Flatback syndrome of lumbar region; Other form of scoliosis of lumbar spine Discharge Disposition: Discharge to home or self care 12/30/2024 Telephone [facility] Radiology [address] [place] [address] Shannan Wynn RN from Last 3 Months Surgical History Surgery [...] on file Legal Sex Female 3:02 AM PSYCHOLOGY TEACHER Gender Identity Female 01/01/2021 11:17 AM CDT [...] Screening-Colonoscopy 02/02/2023 02/02/2013 Depression Screening 08/31/2023 08/30/2022 Covid-19 Vaccine (3 - 2024-2 6 season) 2025 03/20/2021, 03/20/2021, 08/10/2020 Influenza Vaccine (#1) 2025 , 02/03/2019, 03/13/2018, Additional history exists Breast Cancer Screening-Mammogram 07/15/2025 07/15/2024, 07/15/2023, 02/22/2022 Fall Risk Assessment 01/13/2026 01/13/2025 Osteoporosis Screening-Bone Density Scan 08/27/2026 08/27/2024 Colon Cancer Screening-CT Colonography Discontinued 02/02/2013 Colon Cancer Screening-DNA Stool Discontinued 02/03/20 Colon Cancer Screening-FIT Discontinued 02/02/2013 Colon Cancer Screening-Sigmoidoscopy Discontinued 02/02/2013 Medical Devices Implanted Type Area Brim Stiffener Device Identifier Shelf Expiration Date Model / Serial / Lot Allosource Canpac Nonpurge Frozen Graft 25cc Bone [id number] - [id number] Implanted:Qty: 1 on 10/08/2022 by Killian Dumont MD at [facility] N/A: Back Allosource 12/21/2026 [id number] / / [id number] Nuvasive Inc Reline 5.5mm Lock Open Tulip Spine Screw Bone Nonsterile [id number] - [id number] Implanted:Qty: 6 on 10/08/2022 by Killian Dumont MD at [facility] N/A: Back Nuvasive Inc [id number] / / Nuvasive Inc Reline-O 6.5mm 45mm Polyaxial Spine 2s Screw Bone Nonsterile [id number] - [id number] Implanted:Qty: 2 on 10/08/2022 by Killian Dumont MD at [facility] N/A: Back Nuvasive Inc [id number] / / Nuvasive Inc Reline-O 7.5mm 45mm Polyaxial Spine 2s Screw Bone Nonsterile [id number] - [id number] Implanted:Qty: 4 on 10/08/2022 by Killian Dumont MD at [facility] N/A: Back Nuvasive Inc [id number] / / Nuvasive Inc Brett Spinal Lordotic Reline 5.5x70mm [place] Chromium [id number] - [id number] Implanted:Qty: 1 on 10/08/2022 by Killian Dumont MD at [facility] N/A: Back Nuvasive Inc [id number] / / Nuvasive Inc Brett Spinal Lordotic Reline 5.5x75mm [place] Chromium [id number] - [id number] Implanted:Qty: 1 on 10/08/2022 by Killian Dumont MD at [facility] N/A: Back Nuvasive Inc [id number] / / Medtronic Inc Screw Spinal Posterior Lumbar Multiaxial Solid Cd Horizon Modulex 5.5/6.0mm Stainless Steel [id number] - [id number] Implanted:Qty: 1 on 01/06/2025 by Killian Dumont MD at [facility] Medtronic Inc [id number] / / Medtronic Inc Screw Spinal Posterior Lumbar Multiaxial Solid Cd Horizon Modulex 5.5/6.0mm Stainless Steel [id number] - [id number] Implanted:Qty: 1 on 01/06/2025 by Killian Dumont MD at [facility] Medtronic Inc 02/16/2029 [id number] / / Medtronic Inc Screw Spinal Posterior Lumbar Multiaxial Solid Cd Horizon Modulex 5.5/6.0mm Stainless Steel [id number] - [id number] Implanted:Qty: 1 on 01/06/2025 by Killian Dumont MD at [facility] Medtronic Inc [id number] / / Medtronic Inc Screw Spinal Posterior Lumbar Multiaxial Solid Cd Horizon Modulex 5.5/6.0mm Mas Stainless Steel [id number] - [id number] Implanted:Qty: 1 on 01/06/2025 by Killian Dumont MD at [facility] Medtronic Inc 09/06/2029 [id number] / / [id number] Medtronic Inc Screw Spinal Posterior Lumbar Multiaxial Solid Cd Horizon Modulex 5.5/6.0mm Mas Stainless Steel [id number] - [id number] Implanted:Qty: 1 on 01/06/2025 by Killian Dumont MD at [facility] Medtronic Inc 09/10/2029 [id number] / / [id number] [employer] Frozen 1-4mm Graft 60ml Bone Cancellous [id number] - [id number] - [id number] Implanted:Qty: 1 on 01/06/2025 by Killian Dumont MD at [facility] [employer] [id number] 07/22/2029 [id number] / Medtronic Inc Kit Graft Bone Sponge Xlg Infuse 8cc Granules [id number] - [id number] Implanted:Qty: 2 on 01/06/2025 by Killian Dumont MD at [facility] Medtronic Inc 11/02/2025 [id number] / / Medtronic Inc Unid Exp [id number] 5.5 Cc Brett 4upl [id number] - [id number] Implanted:Qty: 2 on 01/06/2025 by Killian Dumont MD at [facility] Medtronic Inc [id number] / / Medtronic Inc Shank [id number] Mdx Osteogrip 6.5x45 [id number] - [id number] Implanted:Qty: 5 on 01/06/2025 by Killian Dumont MD at [facility] Medtronic Inc [id number] / / Medtronic Inc Screw Spinal 7.5x50mm Cd Horizon Osteogrip Thread Nonstrl [id number] - [id number] Implanted:Qty: 4 on 01/06/2025 by Killian Dumont MD at [facility] Medtronic Inc [id number] / / Medtronic Inc Shank Mdx Osteogrip 7.5x45mm Nonsterile [id number] - [id number] Implanted:Qty: 2 on 01/06/2025 by Killian Dumont MD at [facility] Medtronic Inc [id number] / / Medtronic Inc 9.5mm 80mm Multiaxial Cannulated Thoracolumbar Screw Bone [id number] - [id number] Implanted:Qty: 1 on 01/06/2025 by Killian Dumont MD at [facility] Medtronic Inc [id number] / / Medtronic Inc 9.5mm 90mm Multiaxial Cannulated Thoracolumbar Screw Bone [id number] - [id number] Implanted:Qty: 1 on 01/06/2025 by Killian Dumont MD at [facility] Medtronic Inc [id number] / / Medtronic Inc Cd Horizon Break Off Spinal Screw Set Titanium Nonsterile 5.5 Mm [id number] - [id number] Implanted:Qty: 2 on 01/06/2025 by Killian Dumont MD at [facility] Medtronic Inc [id number] / / Medtronic Inc Screw Spinal Posterior Lumbar Multiaxial Solid Cd Horizon Modulex 5.5/6.0mm Mas Stainless Steel [id number] - [id number] Implanted:Qty: 1 on 01/06/2025 by Killian Dumont MD at [facility] Medtronic Inc [id number] / / Medtronic Inc Cd Horizon 5.5mm 500mm Line Straight Brett Spinal Titanium [id number] - [id number] Implanted:Qty: 1 on 01/06/2025 by Killian Dumont MD at [facility] Medtronic Inc [id number] / / Medtronic Inc Screw Spinal Biased Multi-Axial Tulips Double Pack Heads Stainless Steel Cd Horizon Modulex Sterile [id number] - [id number] Implanted:Qty: 2 on 01/06/2025 by Killian Dumont MD at [facility] Medtronic Inc [id number] / / Medtronic Inc Screw Spinal 6.5x45mm Multiaxial Drmas Tulip Self-Tapping Locking Titanium Cd Horizon Modulex Sterile [id number] - [id number] Implanted:Qty: 4 on 01/06/2025 by Killian Dumont MD at [facility] Medtronic Inc [id number] / / Medtronic Inc Screw Spinal Pedicle Dual Thread Solid Cd Horizon Modulex 6.5x40mm [id number] - [id number] Implanted:Qty: 5 on 01/06/2025 by Killian Dumont MD at [facility] N/A: Thoracic -Sacral Spine Medtronic Inc [id number] / / Medtronic Inc Screw Spinal Posterior Lumbar Multiaxial Solid Cd Horizon Modulex 5.5/6.0mm Mas Stainless Steel [id number] - [id number] Implanted:Qty: 1 on 01/06/2025 by Killian Dumont MD at [facility] Medtronic Inc 09/06/2029 [id number] / / Medtronic Inc Screw Spinal Posterior Lumbar Multiaxial Solid Cd Horizon Modulex 5.5/6.0mm Stainless Steel [id number] - [id number] Implanted:Qty: 1 on 01/06/2025 by Killian Dumont MD at [facility] Medtronic Inc 11/02/2029 [id number] / / Medtronic Inc Screw Spinal Posterior Lumbar Multiaxial Solid Cd Horizon Modulex 5.5/6.0mm Stainless Steel [id number] - [id number] Implanted:Qty: 1 on 01/06/2025 by Killian Dumont MD at [facility] Medtronic Inc [id number] / / Procedures Procedure Name Priority Date/Time Associated Diagnosis Comments XR SCOLIOSIS AP LAT Schedule Routine, Read Routine (OP Routine) 03/21/2025 12:39 PM PSYCHOLOGY TEACHER Fusion of spine of lumbar region Flatback syndrome of lumbar region Other form of scoliosis of lumbar spine S/P lumbar spinal fusion XR SCOLIOSIS AP LAT Schedule Routine, Read [...] VIEW IP Routine 01/06/2025 11:17 AM CDT OR AN PROCEDURE PLACEHOLDER Routine 01/06/2025 10:49 AM CDT OR AN PROCEDURE PLACEHOLDER Routine 01/06/2025 10:48 AM CDT OR AN PROCEDURE PLACEHOLDER Routine 01/06/2025 10:47 AM CDT PREPARE PLASMA STAT 01/06/2025 9:56 AM CDT PREPARE RBC STAT 01/06/2025 9:56 AM CDT OR AN PROCEDURE PLACEHOLDER Routine 01/06/2025 9:47 AM CDT OR AN ELECTIVE ENDOTRACHEAL AIRWAY Routine 01/06/2025 9:47 [...] Ottoniel via phone call cell saver ID- [id number]- [facility] Special Needs Pro-Corinth table, cell saver, fluoroscopy, microscope, irrigating bipolar, Vikas Pi drill, Medtronic instrumentation, Allosource frozen graft chips, has in Nuvasive Reline to be removedcell saver ID- [id number] SPINAL CORD MONITORING 01/06/2025 7:35 AM CDT Flatback syndrome Case Notes 01/05@1321- Per [facility] via email office needs to edit case - DMF 01/05@1033- Per [facility] via email office needs to edit case - DMF 11/01@1040- Per Ottoniel via phone call cell saver ID- [id number]- [facility] Special Needs Pro-Corinth table, cell saver, fluoroscopy, microscope, irrigating bipolar, Vikas Pi drill, Medtronic instrumentation, Allosource frozen graft chips, has in Nuvasive Reline to be removedcell saver ID- [id number] OSTEOTOMY POSTERIOR SPINAL 01/06/2025 7:35 AM CDT Flatback syndrome Case Notes - Per [facility] via email office needs to edit case - DMF 01/05@1033- Per [facility] via email office needs to edit case - DMF 11/01@1040- Per Ottoniel via phone call cell saver ID- [id number]- DMF Special Needs Pro-Corinth table, cell saver, fluoroscopy, microscope, irrigating bipolar, Vikas Pi drill, Medtronic instrumentation, Allosource frozen graft chips, has in Nuvasive Reline to be removedcell saver ID- [id number] REMOVAL HARDWARE SPINE 01/06/2025 7:35 AM CDT Flatback syndrome Case Notes - Per [facility] via email office needs to edit case - DMF 01/05@1033- Per [facility] via email office needs to edit case - DMF 11/01@1040- Per Ottoniel via phone call cell saver ID- [id number]- DM[facility] Special Needs Pro-Corinth table, cell saver, fluoroscopy, microscope, irrigating bipolar, Qulin Pi drill, Medtronic instrumentation, Allosource frozen graft chips, has in Nuvasive Reline to be removedcell saver ID- [id number] FUSION DECOMPRESSION LAMINECTOMY WITH INSTRUMENTATION - MEDTRONIC SOLERA 01/06/2025 7:35 AM CDT Flatback syndrome Case Notes - Per [facility] via email office needs to edit case - DMF 01/05@1033- Per [facility] via email office needs to edit case - DMF 11/01@1040- Per Ottoniel via phone call cell saver ID- [id number]- DMF Special Needs Pro-Corinth table, cell saver, fluoroscopy, microscope, irrigating bipolar, Qulin Pi drill, Medtronic instrumentation, Allosource frozen graft chips, has in Nuvasive Reline to be removedcell saver ID- [id number] TYPE AND SCREEN STAT 01/06/2025 6:50 AM [...] to Health Maintenance Results * XR Scoliosis Ap and Lateral (03/21/2025 12:39 PM PSYCHOLOGY TEACHER) Anatomical Region Laterality Modality Spine N/A Computed Radiogr aphy 03/21/2025 2:34 PM PSYCHOLOGY TEACHER Impressions 03/21/2025 2:34 PM PSYCHOLOGY TEACHER 1. Unchanged, revised, posterior instrumented fusion of T10 to pelvis. Electronically signed by: Soy Snyder MD Narrative 03/21/2025 2:34 PM PSYCHOLOGY TEACHER EXAMINATION: XR SCOLIOSIS AP AND LATERAL HISTORY: Spinal fusion follow-up FINDINGS: Comparison is made with radiograph dated 02/02/2025. Unchanged revised posterior instrumented fusion of T10 to pelvis, with bilateral iliac screws. Instrumentation is intact. There is mild dextrocurvature of the cervical thoracic spine. Vertebral body heights are maintained. No acute displaced fracture. Mild to moderate multilevel degenerative disease of the cervical and thoracic spine, with mild anterolisthesis of C3-C5. Bilateral hip arthroplasties in expected position. Procedure Note Soy Snyder MD - 03/21/2025 EXAMINATION: XR SCOLIOSIS AP AND LATERAL HISTORY: Spinal fusion follow-up FINDINGS: Comparison is made with radiograph dated 02/02/2025. Unchanged revised posterior instrumented fusion of T10 to pelvis, with bilateral iliac screws. Instrumentation is intact. There is mild dextrocurvature of the cervical thoracic spine. Vertebral body heights are maintained. No acute displaced fracture. Mild to moderate multilevel degenerative disease of the cervical and thoracic spine, with mild anterolisthesis of C3-C5. Bilateral hip arthroplasties in expected position. IMPRESSION: 1. Unchanged, revised, posterior instrumented fusion of T10 to pelvis. Electronically signed by: Soy Snyder MD Killian Dumont MD IMG XR PROCEDURES Final Re sult * XR Scoliosis AP LAT (02/02/2025 1:38 [...] POCT ORDERABLES - MATEUS CE Final Result [facility] [place] [address] * XR Scoliosis Ap and Lateral (01/14/2025 [...] signed by: Jan Mathew MD Goyo Gallo TON CYLINDER INSPECTOR IMG XR PROCEDURES Fi nal Result * [...] signed by: Jan Mathew MD Goyo Gallo TON CYLINDER INSPECTOR IMG XR PROCEDURES Fi nal Result * POCT glucose (01/14/2025 8:09 AM CDT) Glucose, POC 111 70 - 199 mg/dL Blood 01/14/2025 8:09 AM CDT 01/14/2025 8:09 AM CDT Killian Dumont MD LAB POCT ORDERABLES - MATEUS CE Final Result [facility] [place] [address] * (ABNORMAL) eGFR (01/13/2025 8:48 PM CDT) [...] BLOOD ORDERABLES Final Result Performing Organization Address [facility] Co de Phone Number [facility] Department [place] [address] * (ABNORMAL) CBC without differential (01/13/2025 8:48 PM CDT) Pathologist [facility] WBC 13.46(H) 3.80 - 9.90 K/cumm Hgb 9.2(L) 11.9 - 15.5 g/dL [facility] Hct 28.1(L) 35.6 - 45.5 % [facility] Plt 172 150 - 400 K/cumm [facility] MPV 9.0(L) 9.1 - 12.3 fL [facility] RBC 3.11(L) 3.90 - 5.20 M/cumm [facility] MCV 90.4 81.3 - 96.4 fL [facility] MCH 29.6 27.1 - 33.3 pg [facility] MCHC 32.7 32.3 - 35.7 g/dL [facility] RDW CV 17.4(H) 11.1 - 14.9 % [facility] RDW SD 55.6(H) 35.7 - 48.1 fL [facility] NRBC abs 0.03(H) 0.00 - 0.01 K/cumm [facility] Blood 01/13/2025 8:48 PM CDT 01/13/2025 9:28 PM CDT Killian Dumont MD LAB BLOOD ORDERABLES Final Result Performing Organization Address [facility] Co de Phone Number [facility] Department [place] [address] * (ABNORMAL) Phosphorus (01/13/2025 8:48 PM CDT) Pathologist [facility] Phosphorus, pl 2.2(L) 2.3 - 4.5 mg/dL Blood 01/13/2025 8:48 PM CDT 01/13/2025 9:28 PM CDT Killian Dumont MD LAB BLOOD ORDERABLES Final Result Performing Organization Address City/[facility]/ZIP Co de Phone Number [facility] [place] [address] * (ABNORMAL) Magnesium (01/13/2025 8:48 PM CDT) Pathologist [facility] Magnesium 2.6(H) 1.4 - 2.5 mg/dL Blood 01/13/2025 8:48 PM CDT 01/13/2025 9:28 PM CDT Killian Dumont MD LAB BLOOD ORDERABLES Final Result Performing Organization Address [facility] Co de Phone Number [facility] Kalpesh [facility] [place] [address] * (ABNORMAL) Comprehensive metabolic panel (01/13/2025 8:48 PM CDT) [facility] Sodium 136 135 - 145 mmol/L Potassium, pl 4.4 3.3 - 4.9 mmol/L [facility] Chloride 104 97 - 110 mmol/L [facility] CO2 27 22 - 32 mmol/L [facility] Anion gap 5 2 - 15 mmol/L [facility] BUN 35(H) 6 - 25 mg/dL [facility] Creatinine 1.48(H) 0.60 - 1.10 mg/dL [facility] Glucose 124 70 - 199 mg/dL [facility] Comment: Interpretive Data Fasting glucose >/= 126 [...] 2022. Calcium 7.3(L) 8.5 - 10.3 mg/dL [facility] Bilirubin, total 0.4 0.1 - 1.2 mg/dL [facility] Protein, pl 5.8(L) 6.5 - 8.5 g/dL [facility] Albumin 2.9(L) 3.5 - 5.0 g/dL [facility] Alk phos 95 40 - 130 Units/L [facility] ALT 48(H) 7 - 45 Units/L [facility] AST 73(H) 10 - 45 Units/L [facility] Blood 01/13/2025 8:48 PM CDT 01/13/2025 9:28 PM CDT Killian Dumont MD LAB BLOOD ORDERABLES Final Result Performing Organization Address [facility] [facility] Co de Phone Number [facility] [place] [address] * POCT glucose (01/13/2025 8:36 PM CDT) Glucose, POC 135 70 - 199 mg/dL Blood 01/13/2025 8:36 PM CDT 01/13/2025 8:36 PM CDT Killian Dumont MD LAB POCT ORDERABLES - MATEUS CE Final Result Performing Organization Address [facility] Co de Phone Number [facility] [place] [place] [address] * POCT glucose (01/13/2025 5:12 PM CDT) Glucose, POC 103 70 - 199 mg/dL Blood 01/13/2025 5:12 PM CDT 01/13/2025 5:12 PM CDT Killian Dumont MD LAB POCT ORDERABLES - MATEUS CE Final Result Performing Organization Address [facility] Co de Phone Number [facility] Department [place] [address] * POCT glucose (01/13/2025 12:04 PM CDT) Glucose, POC 119 70 - 199 mg/dL Blood 01/13/2025 12:0 4 PM CDT 01/13/2025 12:04 PM CDT Killian Dumont MD LAB POCT ORDERABLES - MATEUS CE Final Result Performing Organization Address City/State/[facility] [place] [address] * POCT glucose (01/13/2025 7:39 AM CDT) Glucose, POC 174 70 - 199 mg/dL Blood 01/13/2025 7:39 AM CDT 01/13/2025 7:39 AM CDT Killian Dumont MD LAB POCT ORDERABLES - MATEUS CE Final Result Performing Organization Address City/[facility]/ZIP [place] [address] * POCT glucose (01/12/2025 8:00 PM CDT) Glucose, POC 171 70 - 199 mg/dL Blood 01/12/2025 8:00 PM CDT 01/12/2025 8:00 PM CDT Killian Dumont MD LAB POCT ORDERABLES - MAETUS CE Final Result Performing Organization Address City/[facility]/[place]IP [place] [address] * (ABNORMAL) eGFR (01/12/2025 7:52 PM CDT) [...] Dumont MD LAB BLOOD ORDERABLES Final Result [facility] [place] [address] * (ABNORMAL) CBC without differential (01/12/2025 7:52 PM CDT) WBC 11.49(H) 3.80 - 9.90 K/cumm Hgb 9.0(L) 11.9 - 15.5 g/dL [facility] Hct 27.8(L) 35.6 - 45.5 % [facility] Plt 142(L) 150 - 400 K/cumm [facility] MPV 10.5 9.1 - 12.3 fL [facility] RBC 3.07(L) 3.90 - 5.20 M/cumm [facility] MCV 90.6 81.3 - 96.4 fL [facility] MCH 29.3 27.1 - 33.3 pg [facility] MCHC 32.4 32.3 - 35.7 g/dL [facility] RDW CV 17.1(H) 11.1 - 14.9 % [facility] RDW SD 55.0(H) 35.7 - 48.1 fL [facility] NRBC abs 0.03(H) 0.00 - 0.01 K/cumm [facility] Blood 01/12/2025 7:52 PM CDT 01/12/2025 8:32 PM CDT Killian Dumont MD LAB BLOOD ORDERABLES Final Result Performing Organization Address City/[facility] Co de Phone Number [facility] [place] [address] * Phosphorus (01/12/2025 7:52 PM CDT) Pathologist [facility] Phosphorus, pl 2.6 2.3 - 4.5 mg/dL Blood 01/12/2025 7:52 PM CDT 01/12/2025 8:32 PM CDT Killian Dumont MD LAB BLOOD ORDERABLES Final Result Performing Organization Address [facility] de Phone Number [facility] [place] [address] * (ABNORMAL) Magnesium (01/12/2025 7:52 PM CDT) [facility] Magnesium 2.8(H) 1.4 - 2.5 mg/dL Blood 01/12/2025 7:52 PM CDT 01/12/2025 8:32 PM CDT Killian Dumont MD LAB BLOOD ORDERABLES Final Result Performing Organization Address [facility] [place] [address] * (ABNORMAL) Comprehensive metabolic panel (01/12/2025 7:52 PM CDT) [facility] Sodium 137 135 - 145 mmol/L Potassium, pl 4.1 3.3 - 4.9 mmol/L [facility] Chloride 105 97 - 110 mmol/L [facility] CO2 25 22 - 32 mmol/L [facility] Anion gap 7 2 - 15 mmol/L [facility] BUN 42(H) 6 - 25 mg/dL [facility] Creatinine 1.59(H) 0.60 - 1.10 mg/dL [facility] Glucose 155 70 - 199 mg/dL [facility] Comment: Interpretive Data Fasting glucose >/= 126 [...] 2022. Calcium 7.2(L) 8.5 - 10.3 mg/dL [facility] Bilirubin, total 0.3 0.1 - 1.2 mg/dL [facility] Protein, pl 5.3(L) 6.5 - 8.5 g/dL [facility] Albumin 2.6(L) 3.5 - 5.0 g/dL [facility] Alk phos 91 40 - 130 Units/L [facility] ALT 64(H) 7 - 45 Units/L [facility] AST 70(H) 10 - 45 Units/L [facility] Blood 01/12/2025 7:52 PM CDT 01/12/2025 8:32 PM CDT Killian Dumont MD LAB BLOOD ORDERABLES Final Result [facility] [place] [address] * POCT glucose (01/12/2025 4:07 PM CDT) Glucose, POC 152 70 - 199 mg/dL Blood 01/12/2025 4:07 PM CDT 01/12/2025 4:07 PM CDT Killian Dumont MD LAB POCT ORDERABLES - MATEUS CE Final Result Performing Organization Address [facility] Co de Phone Number [facility] [place] [address] * POCT glucose (01/12/2025 12:13 PM CDT) Glucose, POC 162 70 - 199 mg/dL Blood 01/12/2025 12:1 3 PM CDT 01/12/2025 12:13 PM CDT Killian Dumont MD LAB POCT ORDERABLES - MATEUS CE Final Result Performing Organization Address [facility] de Phone Number [facility] [place] [address] * US Vein Duplex Lower Extremity Bilateral Complete (01/12/2025 12:01 PM CDT) Anatomical Region Laterality Modality Vascular Bilateral Ultrasound 01/12/2025 10:2 3 AM CDT Narrative 01/12/2025 4:45 PM CDT [facility] - Department of Vascular Surgery, Vascular Laboratory [address] [place] [address] Lower Extremity Venous Ultrasound Report Patient Name: EVELYN GIL : 1955 (69y 11m) Study Date: 01/12/2025 10:23:13 AM Sex: F Tech: [id number] Location: [id number] Ref Provider: INGA RUSS Quality: Adequate Order Provider: INGA RUSS PROCEDURES: Vascular Report: Venous Duplex imaging was performed bilaterally in the lower extremities. The common femoral, femoral, popliteal, posterior tibial, peroneal veins were evaluated for patency, spontaneity and phasicity with Doppler, compression and augmentation maneuvers. Great saphenous vein proximal at the junction was evaluated with compression maneuvers. INDICATIONS: Pain swelling - FINDINGS: Performing Mass Spectrometry Manager: Noble SOLORIO, RVT. Right: Duplex scan reveals [...] lumbar, and sacral fusion and decompressive laminectomy ([id number]). Operative course complicated by acute blood loss [...] Procedure Note Bonilla Serrano MD - 01/12/2025 [facility] - Department of Vascular Surgery,Vascular Laboratory [address] [place] [address] Lower Extremity Venous Ultrasound Report Patient Name: EVELYN GIL : 1955 (69y 11m) Study Date: 01/12/2025 10:23:13 AM Sex: F Tech: Location: [id number] Ref Provider: INGA RUSS Quality: Adequate Order Provider: INGA RUSS PROCEDURES: Vascular Report: Venous Duplex imaging was performed bilaterally in the lower extremities.The common femoral, femoral, popliteal, posterior tibial, peroneal veins wereevaluated for patency, spontaneity and phasicity with Doppler, compression and augmentationmaneuvers. Great saphenous vein proximal at the junction was evaluated with compressionmaneuvers. INDICATIONS: Pain swelling - FINDINGS: Performing Mass Spectrometry Manager: Noble SOLORIO RVT. Right: Duplex scan reveals [...] thoracic, lumbar, and sacral fusion and decompressive laminectomy([id number]). Operative course complicated by acute blood loss [...] provided above. Electronically Signed By: Bonilla Serrano MD, FACS 01/12/2025 4:04:55 PM CDT us Inga Rayne [place] TON CYLINDER INSPECTOR IMG US PROCEDURES Final Result * POCT glucose (01/12/2025 8:37 AM CDT) Glucose, POC 126 70 - 199 mg/dL Blood 01/12/2025 8:37 AM CDT 01/12/2025 8:37 AM CDT Killian Dumont MD LAB POCT ORDERABLES - MATEUS CE Final Result Performing Organization Address City/[facility] Co de Phone Number [facility]KE [facility] [place] [address] * (ABNORMAL) eGFR (01/11/2025 9:44 PM CDT) [...] BLOOD ORDERABLES Final Result Performing Organization Address City/[facility]/ZIP Co de Phone Number [facility] [place] [address] * (ABNORMAL) CBC without differential (01/11/2025 9:44 PM CDT) WBC 10.05(H) 3.80 - 9.90 K/cumm Hgb 8.8(L) 11.9 - 15.5 g/dL [facility] Hct 27.2(L) 35.6 - 45.5 % [facility] Plt 103(L) 150 - 400 K/cumm [facility] MPV 9.9 9.1 - 12.3 fL [facility] RBC 3.01(L) 3.90 - 5.20 M/cumm [facility] MCV 90.4 81.3 - 96.4 fL [facility] MCH 29.2 27.1 - 33.3 pg [facility] MCHC 32.4 32.3 - 35.7 g/dL [facility] RDW CV 17.2(H) 11.1 - 14.9 % [facility] RDW SD 55.7(H) 35.7 - 48.1 fL [facility] NRBC abs 0.03(H) 0.00 - 0.01 K/cumm [facility] Blood 01/11/2025 9:44 PM CDT 01/11/2025 10:07 PM CDT Killian Dumont MD LAB BLOOD ORDERABLES Final Result Performing Organization Address City/[facility] Co de Phone Number [facility] [place] [address] * T4, free (01/11/2025 9:44 PM CDT) Pathologist [facility] Free T4 0.90 0.90 - 1.70 ng/dL Blood 01/11/2025 9:44 PM CDT 01/11/2025 10:06 PM CDT Killian Dumont MD LAB BLOOD ORDERABLES Final Result Performing Organization Address City/[facility]/ZIP Co de Phone Number [facility] Department [place] [address] * Phosphorus (01/11/2025 9:44 PM CDT) Pathologist [facility] Phosphorus, pl 2.3 2.3 - 4.5 mg/dL Blood 01/11/2025 9:44 PM CDT 01/11/2025 10:06 PM CDT Killian Dumont MD LAB BLOOD ORDERABLES Final Result [facility] [place] [address] * (ABNORMAL) Magnesium (01/11/2025 9:44 PM CDT) [facility] Magnesium 2.7(H) 1.4 - 2.5 mg/dL Blood 01/11/2025 9:44 PM CDT 01/11/2025 10:06 PM CDT Killian Dumont MD LAB BLOOD ORDERABLES Final Result Performing Organization Address City/[facility]/ZIP [place] [address] * (ABNORMAL) Comprehensive metabolic panel (01/11/2025 9:44 PM CDT) [facility] Sodium 138 135 - 145 mmol/L Potassium, pl 4.0 3.3 - 4.9 mmol/L [facility] Chloride 107 97 - 110 mmol/L [facility] CO2 26 22 - 32 mmol/L [facility] Anion gap 5 2 - 15 mmol/L [facility] BUN 52(H) 6 - 25 mg/dL [facility] Creatinine 1.73(H) 0.60 - 1.10 mg/dL [facility] Glucose 129 70 - 199 mg/dL [facility] Comment: Interpretive Data Fasting glucose >/= 126 [...] Calcium 7.2(L) 8.5 - 10.3 mg/dL [facility] Bilirubin, total 0.4 0.1 - 1.2 mg/dL [facility] Protein, pl 5.5(L) 6.5 - 8.5 g/dL [facility] Albumin 2.7(L) 3.5 - 5.0 g/dL [facility] Alk phos 89 40 - 130 Units/L [facility] ALT 48(H) 7 - 45 Units/L [facility] AST 65(H) 10 - 45 Units/L [facility] Blood 01/11/2025 9:44 PM CDT 01/11/2025 10:06 PM CDT Killian Dumont MD LAB BLOOD ORDERABLES Final Result Performing Organization Address City/[facility]/ZIP Co de Phone Number [facility] [place] [address] * POCT glucose (01/11/2025 9:43 PM CDT) Glucose, POC 135 70 - 199 mg/dL Blood 01/11/2025 9:43 PM CDT 01/11/2025 9:43 PM CDT Killian Dumont MD LAB POCT ORDERABLES - MATEUS CE Final Result [facility] [place] [address] * POCT glucose (01/11/2025 5:10 PM CDT) Glucose, POC 134 70 - 199 mg/dL Blood 01/11/2025 5:10 PM CDT 01/11/2025 5:10 PM CDT us Killian Dumont MD LAB POCT ORDERABLES - MATEUS CE Final Result Performing Organization Address [facility] Co de Phone Number [facility] [place] [address] * POCT glucose (01/11/2025 12:39 PM CDT) Pathologist [facility] Glucose, POC 161 70 - 199 mg/dL Blood 01/11/2025 12:3 9 PM CDT 01/11/2025 12:39 PM CDT Killian Dumont MD LAB POCT ORDERABLES - MATEUS CE Final Result Performing Organization Address [facility] de Phone Number [facility] [place] [address] * HIV 1/2 Antibody plus p24 Antigen Blood (01/11/2025 12:30 PM CDT) [facility] HIV 1/2 ab + p24 ag Nonreactive [...] ENERAL ORDERABLES Final Result Performing Organization Address City/[facility] Co de Phone Number [facility] [place] [address] * RPR Blood (01/11/2025 12:30 PM CDT) [facility] RPR Nonreactive Nonreactive Blood 01/11/2025 12:3 0 PM CDT 01/11/2025 1:07 PM CDT Julee Yoder NP LAB MICROBIOLOGY - G ENERAL ORDERABLES Final Result Performing Organization Address [facility] de Phone Number [facility] [place] [address] * (ABNORMAL) TSH (01/11/2025 12:30 PM CDT) [facility] Thyroid Stimulating Hormone 4.73(H) 0.30 - 4.20 mcIUnit/mL Blood 01/11/2025 12:3 0 PM CDT 01/11/2025 1:05 PM CDT Julee Yoder NP LAB BLOOD ORDERABLES Final Result Performing Organization Address [facility] de Phone Number [facility] [place] [address] * Vitamin B12 (01/11/2025 12:30 PM CDT) [facility] Vitamin B12 971 230 - 1,250 pg/mL Blood 01/11/2025 12:3 0 PM CDT 01/11/2025 1:05 PM CDT Julee Yoder NP LAB BLOOD ORDERABLES Final Result Performing Organization Address [facility] de Phone Number [facility] [place] [address] * POCT glucose (01/11/2025 7:14 AM CDT) [facility] Glucose, POC 186 70 - 199 mg/dL Blood 01/11/2025 7:14 AM CDT 01/11/2025 7:14 AM CDT Killian Dumont MD LAB POCT ORDERABLES - MATEUS CE Final Result Performing Organization Address [facility] Co de Phone Number [facility] [place] [address] * (ABNORMAL) eGFR (01/10/2025 9:35 PM CDT) [...] BLOOD ORDERABLES Final Result Performing Organization Address City/[facility]/ZIP Co de Phone Number BROOKE SHELDON [facility] Department [place] [address] * (ABNORMAL) CBC without differential (01/10/2025 9:35 PM CDT) Pathologist [facility] WBC 10.71(H) 3.80 - 9.90 K/cumm Hgb 8.9(L) 11.9 - 15.5 g/dL [facility] Hct 27.3(L) 35.6 - 45.5 % [facility] Plt 83(L) 150 - 400 K/cumm [facility] MPV 10.1 9.1 - 12.3 fL [facility] RBC 3.04(L) 3.90 - 5.20 M/cumm [facility] MCV 89.8 81.3 - 96.4 fL [facility] MCH 29.3 27.1 - 33.3 pg [facility] MCHC 32.6 32.3 - 35.7 g/dL [facility] RDW CV 17.5(H) 11.1 - 14.9 % [facility] RDW SD 56.6(H) 35.7 - 48.1 fL [facility] NRBC abs 0.02(H) 0.00 - 0.01 K/cumm [facility] Blood 01/10/2025 9:35 PM CDT 01/10/2025 10:05 PM CDT Killian Dumont MD LAB BLOOD ORDERABLES Final Result Performing Organization Address City/[facility]/ZIP Co de Phone Number [facility] [place] [address] * Phosphorus (01/10/2025 9:35 PM CDT) Pathologist [facility] Phosphorus, pl 3.1 2.3 - 4.5 mg/dL Blood 01/10/2025 9:35 PM CDT 01/10/2025 10:04 PM CDT Killian Dumont MD LAB BLOOD ORDERABLES Final Result [facility] [place] [address] * (ABNORMAL) Magnesium (01/10/2025 9:35 PM CDT) Pathologist [facility] Magnesium 3.0(H) 1.4 - 2.5 mg/dL Blood 01/10/2025 9:35 PM CDT 01/10/2025 10:04 PM CDT us Killian Dumont MD LAB BLOOD ORDERABLES Final Result [facility] Department [place] [address] * (ABNORMAL) Comprehensive metabolic panel (01/10/2025 9:35 PM CDT) Sodium 142 135 - 145 mmol/L Potassium, pl 4.5 3.3 - 4.9 mmol/L [facility] Chloride 109 97 - 110 mmol/L [facility] CO2 25 22 - 32 mmol/L [facility] Anion gap 8 2 - 15 mmol/L [facility] BUN 58(H) 6 - 25 mg/dL [facility] Creatinine 1.89(H) 0.60 - 1.10 mg/dL [facility] Glucose 118 70 - 199 mg/dL [facility] Comment: Interpretive Data Fasting glucose >/= 126 [...] 2022. Calcium 7.5(L) 8.5 - 10.3 mg/dL [facility] Bilirubin, total 0.4 0.1 - 1.2 mg/dL [facility] Protein, pl 5.6(L) 6.5 - 8.5 g/dL [facility] Albumin 2.8(L) 3.5 - 5.0 g/dL [facility] Alk phos 85 40 - 130 Units/L [facility] ALT 65(H) 7 - 45 Units/L [facility] AST 96(H) 10 - 45 Units/L [facility] Blood 01/10/2025 9:35 PM CDT 01/10/2025 10:04 PM CDT Killian Dumont MD LAB BLOOD ORDERABLES Final Result Performing Organization Address [facility]/ZIP Co de Phone Number [facility] [place] [address] * POCT glucose (01/10/2025 9:08 PM CDT) Glucose, POC 124 70 - 199 mg/dL Blood 01/10/2025 9:08 PM CDT 01/10/2025 9:08 PM CDT Killian Dumont MD LAB POCT ORDERABLES - MATEUS CE Final Result Performing Organization Address [facility] Co [place] [address] * (ABNORMAL) Hemoglobin and hematocrit (01/10/2025 6:44 PM CDT) Hgb 8.8(L) 11.9 - 15.5 g/dL Hct 27.0(L) 35.6 - 45.5 % [facility] Blood 01/10/2025 6:44 PM CDT 01/10/2025 7:04 PM CDT us Riley Reyes MD LAB BLOOD ORDERABLES Renee l Result Performing Organization Address City/[facility]/ZIP Co de Phone Number [facility] [place] [address] * Transfuse RBC (01/10/2025 5:53 PM CDT) Blood Julee Yoder NP BLOOD TRANSFUSION OR DERABLES Edited Result - Final Performing Organization Address City/[facility]/ZIP Co de Phone Number [facility] [place] [address] * POCT glucose (01/10/2025 3:59 PM CDT) Glucose, POC 139 70 - 199 mg/dL Blood 01/10/2025 3:59 PM CDT 01/10/2025 3:59 PM CDT Killian Dumont MD LAB POCT ORDERABLES - MATEUS CE Final Result [facility] [place] [address] * (ABNORMAL) Urinalysis reflex to microscopic and culture Urine (01/10/2025 12:45 PM CDT) Color, ur Yellow Yellow Clarity, ur Cloudy(A) Clear [facility] Specific gravity, ur 1.021 1.003 - 1.030 [facility] pH, urine 5.5 [facility] Comment: Interpretive Data U rine pH is affected by diet, medications, systemic acid-base disturbances, and renal tubular function. pH may affect urinary stone formation. For example, urine pH below 6.0 may help reduce the tendency for calcium phosphate stones and pH greater than 6.0 may reduce the tendency for uric acid stone formation. Source: [facility] Current Interpretive Data was last revised on 2017 Protein, ur ql 1+(A) Negative [facility] Glucose, ur ql Negative Negative [facility] Ketones, ur Negative Negative [facility] Bilirubin, ur Negative Negative [facility] Blood, ur 3+(A) Negative [facility] Urobilinogen, ur <2.0 <2.0 mg/dL [facility] Nitrite, ur Negative Negative [facility] Leukocyte esterase, ur Negative Negative [facility] UA reflex comment Reflex to microscopic UA will be performed. [facility] Urine 01/10/2025 12:4 5 PM CDT 01/10/2025 1:01 PM CDT Killian Dumont MD LAB MICROBIOLOGY - GENERAL ORDERABLES Final Result Performing Organization Address [facility] Co de Phone Number [facility] Department [place] [address] * Urea nitrogen, urine, random (01/10/2025 12:45 PM CDT) Urea nitrogen, ur 835 mg/dL Comment: Interpretive Data No reference range established. Current interpretive data was last revised 2018. Urine 01/10/2025 12:4 5 PM CDT 01/10/2025 1:05 PM CDT Killian Dumont MD LAB URINE ORDERABLES Final Result Performing Organization Address [facility] de Phone Number [facility] [place] [address] * (ABNORMAL) Albumin Creatinine Ratio, Urine (01/10/2025 12:45 PM CDT) Albumin Ur 48.0 mg/L Comment: Interpretive Data No reference range established. Current interpretive data was last revised 2018. Creatinine Ur 112.3 mg/dL [facility] Comment: Interpretive Data No reference range established. Current interpretive data was last revised 2018. Albumin Creatinine Ratio, Ur 43(H) 1 - 29 mg/g [facility] Urine 01/10/2025 12:4 5 PM CDT 01/10/2025 1:01 PM CDT Killian Dumont MD LAB URINE ORDERABLES Final Result Performing Organization Address [facility] Co de Phone Number [facility] [place] [address] * Sodium, urine, random (01/10/2025 12:45 PM CDT) Sodium, ur 56 mmol/L Comment: Interpretive Data No reference range established. Current interpretive data was last revised 2018. Urine 01/10/2025 12:4 5 PM CDT 01/10/2025 1:05 PM CDT Killian Dumont MD LAB URINE ORDERABLES Final Result Performing Organization Address [facility] Co de Phone Number [facility] [place] [address] * (ABNORMAL) Urinalysis, microscopic only (01/10/2025 12:45 PM CDT) WBC, ur 11-20(A) 0 - 5 /HPF RBC, ur >50(A) 0 - 2 /HPF [facility] Epithelial cells, squamous, ur 1-5 0 - 5 /HPF [facility] Bacteria, ur 3+(A) [facility] Mucous, ur Present(A) [facility] Uric acid crystals, ur 1+(A) [facility] Granular casts, ur 11-20(A) 0 - 0 /LPF [facility] Culture Reflex Comment Reflex to urine culture will be performed. [facility] Urine 01/10/2025 12:4 5 PM CDT 01/10/2025 1:01 PM CDT Killian Dumont MD LAB URINE ORDERABLES Final Result Performing Organization Address [facility] de Phone Number [facility] [place] [address] * Urine culture Urine (01/10/2025 12:45 PM CDT) Report Final Report: No growth Urine 01/10/2025 12:4 5 PM CDT 01/10/2025 4:46 PM CDT Narrative [facility] - 01/11/2025 5:35 PM CDT Urine culture reflexed based upon urinalysis results. Testing performed by [facility] Microbiology Laboratory ([phone]) Killian Dumont MD LAB MICROBIOLOGY - GENERAL ORDERABLES Final Result Performing Organization Address City/[facility]/ZIP Co [place] [address] * POCT glucose (01/10/2025 11:35 AM CDT) Glucose, POC 141 70 - 199 mg/dL Blood 01/10/2025 11:3 5 AM CDT 01/10/2025 11:35 AM CDT Killian Dumont MD LAB POCT ORDERABLES - MATEUS CE Final Result Performing Organization Address [facility] Co de Phone Number [facility] [place] [address] * Type and screen (01/10/2025 11:34 AM CDT) ABO Rh O Positive [place], indirect Negative [facility] [place] Blood 01/10/2025 11:3 4 AM CDT 01/10/2025 11:53 AM CDT [facility]ative [facility] - 01/10/2025 12:49 PM CDT Has the patient had Daratumumab or Isatuximab in the past 6 months?->Unknown Julee Yoder NP LAB BLOOD BANK TEST ORDERABLES Final Result Performing Organization Address City/[facility] Co de Phone Number [facility] [place] [address] * Prepare RBC: 1 Units (01/10/2025 10:24 AM CDT) Product code [id number] Unit Number [id number] [facility] Product Blood Type OPOS [facility] Dispense Status PRESUMED TRANSFUSED [facility] Blood 01/10/2025 10:2 4 AM CDT 01/10/2025 10:24 AM CDT [facility] 01/11/2025 4:00 AM CDT Are special requirements needed? (All products are leukoreduced and CMV- safe)- >No Date required:-[id number] [facility] # of Ixeon-2-Tikyi Reasons:-Cardiovascular disease, Hgb <8 g/dL} Julee Lisa Yoder TON CYLINDER INSPECTOR BLOOD BANK PRODUCT O RDERABLES Final Result Performing Organization Address [facility]/ZIP Co de Phone Number [facility] Department [place] [address] * POCT glucose (01/10/2025 7:19 AM CDT) Glucose, POC 152 70 - 199 mg/dL Blood 01/10/2025 7:19 AM CDT 01/10/2025 7:19 AM CDT Killian Dumont MD LAB POCT ORDERABLES - MATEUS CE Final Result Performing Organization Address [facility] de Phone Number [facility] Department [place] [address] * (ABNORMAL) eGFR (01/10/2025 6:13 AM CDT) [...] ORDERABLES Final Res ult Performing Organization Address [facility] Co de Phone Number [facility] [place] [address] * (ABNORMAL) aPTT (01/10/2025 6:13 AM CDT) [...] ORDERABLES Final Res ult Performing Organization Address [facility] [place] [address] * Protime-INR (01/10/2025 6:13 AM CDT) PT 11.9 10.2 - 13.5 sec INR 1.05 0.90 - 1.20 [facility] Comment: Interpretive data Oral anticoagulant therapeutic ranges: Venous thromboembolism prophylaxis or treatment: 2.0-3.0 CARDIOLOGY Standard range: 2.0-3.0 High-intensity range: 2.5-3.5 Refer to indication-specific guidelines for appropriate target ranges for prosthetic heart valve replacement. Current interpretive data was last revised on 2019. Blood 01/10/2025 6:13 AM CDT 01/10/2025 7:00 AM CDT us Rosalva Polanco TON CYLINDER INSPECTOR LAB BLOOD ORDERABLES Final Res ult Performing Organization Address City/[facility]/ZIP Co de Phone Number [facility] Department [place] [address] * (ABNORMAL) CBC without differential (01/10/2025 6:13 AM CDT) WBC 11.87(H) 3.80 - 9.90 K/cumm Hgb 7.5(L) 11.9 - 15.5 g/dL [facility] Hct 22.6(L) 35.6 - 45.5 % [facility] Plt 81(L) 150 - 400 K/cumm [facility] MPV 11.1 9.1 - 12.3 fL [facility] RBC 2.55(L) 3.90 - 5.20 M/cumm [facility] MCV 88.6 81.3 - 96.4 fL [facility] MCH 29.4 27.1 - 33.3 pg [facility] MCHC 33.2 32.3 - 35.7 g/dL [facility] RDW CV 18.2(H) 11.1 - 14.9 % [facility] RDW SD 58.3(H) 35.7 - 48.1 fL [facility] NRBC abs 0.03(H) 0.00 - 0.01 K/cumm [facility] Blood 01/10/2025 6:13 AM CDT 01/10/2025 6:37 AM CDT us Rosalva Polanco NP LAB BLOOD ORDERABLES Final Res ult [facility] [place] [address] * (ABNORMAL) Basic metabolic panel (01/10/2025 6:13 AM CDT) Sodium 142 135 - 145 mmol/L Potassium, pl 4.1 3.3 - 4.9 mmol/L [facility] Chloride 110 97 - 110 mmol/L [facility] CO2 27 22 - 32 mmol/L [facility] Anion gap 5 2 - 15 mmol/L [facility] BUN 60(H) 6 - 25 mg/dL [facility] Creatinine 1.84(H) 0.60 - 1.10 mg/dL [facility] Glucose 194 70 - 199 mg/dL [facility] Comment: Interpretive Data Fasting glucose >/= 126 [...] 2022. Calcium 7.4(L) 8.5 - 10.3 mg/dL [facility] Blood 01/10/2025 6:13 AM CDT 01/10/2025 6:37 AM CDT us Rosalva Polanco NP LAB BLOOD ORDERABLES Final Res ult Performing Organization Address City/[facility]/ZIP Co de Phone Number [facility] [place] [address] * POCT glucose (01/09/2025 9:10 PM CDT) [facility] Glucose, POC 183 70 - 199 mg/dL Blood 01/09/2025 9:10 PM CDT 01/09/2025 9:10 PM CDT us Killian Dumont MD LAB POCT ORDERABLES - MATEUS CE Final Result Performing Organization Address [facility] Co de Phone Number [facility] Department [place] [address] * (ABNORMAL) eGFR (01/09/2025 8:45 PM CDT) [...] 01/09/2025 9:05 PM CDT us Haylee Barrera TON CYLINDER INSPECTOR LAB BLOOD ORDERABL ES Final Result [facility] [place] [address] * (ABNORMAL) aPTT (01/09/2025 8:45 PM CDT) aPTT 23(L) 26 - 38 sec Comment: Interpretive Data Heparin therapeutic range: 66.0 - 100.0 seconds. Range based on correlation with therapeutic heparin activity range of 0.3 - 0.7 Units/mL. Current interpretive data was last revised on 2023. Blood 01/09/2025 8:45 PM CDT 01/09/2025 9:05 PM CDT us Rosalva Polanco TON CYLINDER INSPECTOR LAB BLOOD ORDERABLES Final Res ult Performing Organization Address City/[facility] de Phone Number [facility] Department [place] [address] * Protime-INR (01/09/2025 8:45 PM CDT) [facility] PT 11.0 10.2 - 13.5 sec INR 0.97 0.90 - 1.20 [facility] Comment: Interpretive data Oral anticoagulant therapeutic ranges: Venous thromboembolism prophylaxis or treatment: 2.0-3.0 CARDIOLOGY Standard range: 2.0-3.0 High-intensity range: 2.5-3.5 Refer to indication-specific guidelines for appropriate target ranges for prosthetic heart valve replacement. Current interpretive data was last revised on 2019. Blood 01/09/2025 8:4 5 PM CDT 01/09/2025 9:05 PM CDT Rosalva Polanco TON CYLINDER INSPECTOR LAB BLOOD ORDERABLES Final Res ult Performing Organization Address [facility] de Phone Number [facility] Department [place] [address] * (ABNORMAL) CBC without differential (01/09/2025 8:45 PM CDT) [facility] WBC 14.43(H) 3.80 - 9.90 K/cumm Hgb 8.5(L) 11.9 - 15.5 g/dL [facility] Hct 26.0(L) 35.6 - 45.5 % [facility] Plt 85(L) 150 - 400 K/cumm [facility] MPV 11.5 9.1 - 12.3 fL [facility] RBC 2.97(L) 3.90 - 5.20 M/cumm [facility] MCV 87.5 81.3 - 96.4 fL [facility] MCH 28.6 27.1 - 33.3 pg [facility] MCHC 32.7 32.3 - 35.7 g/dL [facility] RDW CV 18.1(H) 11.1 - 14.9 % [facility] RDW SD 57.9(H) 35.7 - 48.1 fL [facility] NRBC abs 0.03(H) 0.00 - 0.01 K/cumm [facility] Blood 01/09/2025 8:45 PM CDT 01/09/2025 9:05 PM CDT Killian Dumont MD LAB BLOOD ORDERABLES Final Result Performing Organization Address City/[facility] Co de Phone Number [facility] [place] [address] * Phosphorus (01/09/2025 8:45 PM CDT) Pathologist [facility] Phosphorus, pl 3.8 2.3 - 4.5 mg/dL Blood 01/09/2025 8:45 PM CDT 01/09/2025 9:05 PM CDT Killian Dumont MD LAB BLOOD ORDERABLES Final Result Performing Organization Address [facility] de Phone Number [facility] [place] [address] * (ABNORMAL) Magnesium (01/09/2025 8:45 PM CDT) Pathologist [facility] Magnesium 3.2(H) 1.4 - 2.5 mg/dL Blood 01/09/2025 8:45 PM CDT 01/09/2025 9:05 PM CDT Killian Dumont MD LAB BLOOD ORDERABLES Final Result Performing Organization Address [facility] de Phone Number [facility] [place] [address] * (ABNORMAL) Comprehensive metabolic panel (01/09/2025 8:45 PM CDT) Sodium 142 135 - 145 mmol/L Potassium, pl 4.3 3.3 - 4.9 mmol/L [facility] Chloride 108 97 - 110 mmol/L [facility] CO2 25 22 - 32 mmol/L [facility] Anion gap 9 2 - 15 mmol/L [facility] BUN 63(H) 6 - 25 mg/dL [facility] Creatinine 1.97(H) 0.60 - 1.10 mg/dL [facility] Glucose 172 70 - 199 mg/dL [facility] Comment: Interpretive Data Fasting glucose >/= 126 [...] 2022. Calcium 8.1(L) 8.5 - 10.3 mg/dL [facility] Bilirubin, total 0.4 0.1 - 1.2 mg/dL [facility] Protein, pl 5.8(L) 6.5 - 8.5 g/dL [facility] Albumin 3.1(L) 3.5 - 5.0 g/dL [facility] Alk phos 86 40 - 130 Units/L [facility] ALT 113(H) 7 - 45 Units/L [facility] AST 205(H) 10 - 45 Units/L [facility] Blood 01/09/2025 8:45 PM CDT 01/09/2025 9:05 PM CDT us Killian Dumont MD LAB BLOOD ORDERABLES Final Result [facility] Department [place] [address] * POCT glucose (01/09/2025 6:05 PM CDT) [facility] Signature Glucose, POC 155 70 - 199 mg/dL Blood 01/09/2025 6:0 5 PM CDT 01/09/2025 6:05 PM CDT Killian Dumont MD LAB POCT ORDERABLES - MATEUS CE Final Result Performing Organization Address [facility] Co de Phone Number [facility] [address] * POCT glucose (01/09/2025 3:28 PM CDT) Glucose, POC 149 70 - 199 mg/dL Blood 01/09/2025 3:28 PM CDT 01/09/2025 3:28 PM CDT Killian Dumont MD LAB POCT ORDERABLES - MATEUS CE Final Result Performing Organization Address [facility] de Phone Number [facility] [place] [address] * (ABNORMAL) POCT glucose (01/09/2025 11:13 AM CDT) Glucose, POC 200(H) 70 - 199 mg/dL Comment:Glu2: RN/MD Notified Glucose comment 1 Glu2: RN/MD Notified [facility] Blood 01/09/2025 11:1 3 AM CDT 01/09/2025 11:13 AM CDT Killian Dumont MD LAB POCT ORDERABLES - MATEUS CE Final Result Performing Organization Address [facility] [place] [address] * Critical Care (01/09/2025 10:08 AM CDT) [...] plan with the ICU team and other medical/b2b sales consultant staff, making frequent assessments and decisions [...] POCT ORDERABLES - MATEUS CE Final Result [facility] Department [place] [address] * POCT glucose (01/09/2025 3:15 AM CDT) Glucose, POC 193 70 - 199 mg/dL Blood 01/09/2025 3:15 AM CDT 01/09/2025 3:15 AM CDT us Killian Dumont MD LAB POCT ORDERABLES - MATEUS CE Final Result Performing Organization Address City/[facility] Co de Phone Number [facility] [place] [address] * (ABNORMAL) POCT glucose (01/08/2025 11:16 PM CDT) Glucose, POC 227(H) 70 - 199 mg/dL Comment:Glu2: RN/MD Notified Glucose comment 1 Glu2: RN/MD Notified [facility] Blood 01/08/2025 11:1 6 PM CDT 01/08/2025 11:16 PM CDT us Killian Dumont MD LAB POCT ORDERABLES - MATEUS CE Final Result Performing Organization Address City/[facility] Co [place] [address] * POCT glucose (01/08/2025 10:14 PM CDT) Glucose, POC 171 70 - 199 mg/dL Blood 01/08/2025 10:1 4 PM CDT 01/08/2025 10:14 PM CDT us Killian Dumont MD LAB POCT ORDERABLES - MATEUS CE Final Result Performing Organization Address [facility] Co [place] [address] * Critical Care (01/08/2025 10:00 PM CDT) [...] plan with the ICU team and other medical/b2b sales consultant staff, making frequent assessments and decisions [...] * (ABNORMAL) eGFR (01/08/2025 9:17 PM CDT) eGFR 24(L) >=60 mL/min/1. 73 m2 Comment: [...] NP LAB BLOOD ORDERABL ES Final Result [facility] [place] [address] * (ABNORMAL) CBC without differential (01/08/2025 9:17 PM CDT) WBC 15.66(H) 3.80 - 9.90 K/cumm Hgb 9.3(L) 11.9 - 15.5 g/dL [facility] Hct 27.9(L) 35.6 - 45.5 % [facility] Plt 65(L) 150 - 400 K/cumm [facility] MPV 11.4 9.1 - 12.3 fL [facility] RBC 3.27(L) 3.90 - 5.20 M/cumm [facility] MCV 85.3 81.3 - 96.4 fL [facility] MCH 28.4 27.1 - 33.3 pg [facility] MCHC 33.3 32.3 - 35.7 g/dL [facility] RDW CV 17.8(H) 11.1 - 14.9 % [facility] RDW SD 55.3(H) 35.7 - 48.1 fL [facility] NRBC abs 0.03(H) 0.00 - 0.01 K/cumm [facility] Blood 01/08/2025 9:17 PM CDT 01/08/2025 10:44 PM CDT us Killian Dumont MD LAB BLOOD ORDERABLES Final Result Performing Organization Address City/[facility]/ZIP Co de Phone Number [facility] [place] [address] * Phosphorus (01/08/2025 9:17 PM CDT) [facility] Phosphorus, pl 4.1 2.3 - 4.5 mg/dL Blood 01/08/2025 9:17 PM CDT 01/08/2025 10:39 PM CDT Killian Dumont MD LAB BLOOD ORDERABLES Final Result Performing Organization Address [facility] Co de Phone Number [facility] [place] [address] * (ABNORMAL) Magnesium (01/08/2025 9:17 PM CDT) [facility] Magnesium 2.9(H) 1.4 - 2.5 mg/dL Blood 01/08/2025 9:17 PM CDT 01/08/2025 10:39 PM CDT Killian Dumont MD LAB BLOOD ORDERABLES Final Result Performing Organization Address [facility] Co de Phone Number [facility] Department [place] [address] * (ABNORMAL) Comprehensive metabolic panel (01/08/2025 9:17 PM CDT) [facility] Sodium 145 135 - 145 mmol/L Potassium, pl 4.4 3.3 - 4.9 mmol/L [facility] Chloride 111(H) 97 - 110 mmol/L [facility] CO2 23 22 - 32 mmol/L [facility] Anion gap 11 2 - 15 mmol/L [facility] BUN 52(H) 6 - 25 mg/dL [facility] Creatinine 2.18(H) 0.60 - 1.10 mg/dL [facility] Glucose 177 70 - 199 mg/dL [facility] Comment: Interpretive Data Fasting glucose >/= 126 [...] 2022. Calcium 8.3(L) 8.5 - 10.3 mg/dL [facility] Bilirubin, total 0.5 0.1 - 1.2 mg/dL [facility] Protein, pl 5.7(L) 6.5 - 8.5 g/dL [facility] Albumin 3.1(L) 3.5 - 5.0 g/dL [facility] Alk phos 83 40 - 130 Units/L [facility] ALT 196(H) 7 - 45 Units/L [facility] AST 434(H) 10 - 45 Units/L [facility] Blood 01/08/2025 9:17 PM CDT 01/08/2025 10:39 PM CDT Killian Dumont MD LAB BLOOD ORDERABLES Final Result Performing Organization Address City/State/[facility] Co de Phone Number [facility] [place] [address] * Critical Care (01/08/2025 5:56 PM CDT) [...] plan with the ICU team and other medical/b2b sales consultant staff, making frequent assessments and decisions [...] 4:31 PM CDT 01/08/2025 4:50 PM CDT us Killian Dumont MD LAB URINE ORDERABLES Final Result [facility] [place] [address] * Creatinine, urine, random (01/08/2025 4:31 PM CDT) Creatinine Ur 97.3 mg/dL Comment: Interpretive Data No reference range established. Current interpretive data was last revised 2018. Urine 01/08/2025 4:31 PM CDT 01/08/2025 4:50 PM CDT Result [facility] Killian uDmont MD LAB URINE ORDERABLES Final Result Performing Organization Address [facility] de Phone Number [facility] [address] * POCT glucose (01/08/2025 3:12 PM CDT) Glucose, POC 126 70 - 199 mg/dL Blood 01/08/2025 3:12 PM CDT 01/08/2025 3:12 PM CDT Result [facility] Killian Dumont MD LAB POCT ORDERABLES - MATEUS CE Final Result Performing Organization Address [facility] de Phone Number [facility] [place] [address] * (ABNORMAL) Hemoglobin and hematocrit (01/08/2025 1:05 PM CDT) Hgb 8.8(L) 11.9 - 15.5 g/dL Hct 25.8(L) 35.6 - 45.5 % [facility] Blood 01/08/2025 1:05 PM CDT 01/08/2025 1:13 PM CDT Killian Dumont MD LAB BLOOD ORDERABLES Final Result Performing Organization Address [facility] [place] [address] * Calcium, ionized (01/08/2025 1:02 PM CDT) Calcium, Ionized 4.51 4.50 - 5.10 mg/dL Blood 01/08/2025 1:02 PM CDT 01/08/2025 1:13 PM CDT Killian Dumont MD LAB BLOOD ORDERABLES Final Result Performing Organization Address [facility] Co de Phone Number [facility] [place] [address] * Transfuse RBC (01/08/2025 11:41 AM CDT) Blood Killian Dumont MD BLOOD TRANSFUSION ORDERABL ES Final Result Performing Organization Address [facility] [place] [address] * POCT glucose (01/08/2025 11:12 AM CDT) Glucose, POC 125 70 - 199 mg/dL Blood 01/08/2025 11:1 2 AM CDT 01/08/2025 11:12 AM CDT Killian Dumont MD LAB POCT ORDERABLES - MATEUS CE Final Result Performing Organization Address [facility] Co de Phone Number [facility] [place] [address] * POCT glucose (01/08/2025 7:52 AM CDT) Glucose, POC 133 70 - 199 mg/dL Blood 01/08/2025 7:52 AM CDT 01/08/2025 7:52 AM CDT Killian Dumont MD LAB POCT ORDERABLES - MATEUS CE Final Result Performing Organization Address [facility] Co [place] [address] * (ABNORMAL) aPTT (01/08/2025 5:59 AM CDT) [facility] aPTT 24(L) 26 - 38 sec Comment: Interpretive Data Heparin therapeutic range: 66.0 - 100.0 seconds. Range based on correlation with therapeutic heparin activity range of 0.3 - 0.7 Units/mL. Current interpretive data was last revised on 2023. Blood 01/08/2025 5:59 AM CDT 01/08/2025 6:55 AM CDT Killian Dumont MD LAB BLOOD ORDERABLES Final Result Performing Organization Address [facility] de Phone Number [facility] [place] [address] * Protime-INR (01/08/2025 5:59 AM CDT) [facility] PT 11.4 10.2 - 13.5 sec INR 1.01 0.90 - 1.20 [facility] Comment: Interpretive data Oral anticoagulant therapeutic ranges: Venous thromboembolism prophylaxis or treatment: 2.0-3.0 CARDIOLOGY Standard range: 2.0-3.0 High-intensity range: 2.5-3.5 Refer to indication-specific guidelines for appropriate target ranges for prosthetic heart valve replacement. Current interpretive data was last revised on 2019. Blood 01/08/2025 5:59 AM CDT 01/08/2025 6:55 AM CDT Killian Dumont MD LAB BLOOD ORDERABLES Final Result Performing Organization Address [facility] de Phone Number [facility] [place] [address] * (ABNORMAL) eGFR (01/08/2025 5:04 AM CDT) [facility] eGFR 20(L) >=60 mL/min/1. 73 m2 Comment: [...] 5:04 AM CDT 01/08/2025 5:32 AM CDT us Killian Dumont MD LAB BLOOD ORDERABLES Final Result Performing Organization Address City/State/[facility] Co de Phone Number [facility] [place] [address] * (ABNORMAL) CBC without differential (01/08/2025 5:04 AM CDT) WBC 12.59(H) 3.80 - 9.90 K/cumm Hgb 7.8(L) 11.9 - 15.5 g/dL [facility] Hct 23.1(L) 35.6 - 45.5 % [facility] Plt 60(L) 150 - 400 K/cumm [facility] MPV 11.1 9.1 - 12.3 fL [facility] RBC 2.73(L) 3.90 - 5.20 M/cumm [facility] MCV 84.6 81.3 - 96.4 fL [facility] MCH 28.6 27.1 - 33.3 pg [facility] MCHC 33.8 32.3 - 35.7 g/dL [facility] RDW CV 18.5(H) 11.1 - 14.9 % [facility] RDW SD 56.6(H) 35.7 - 48.1 fL [facility] NRBC abs 0.02(H) 0.00 - 0.01 K/cumm [facility] Blood 01/08/2025 5:04 AM CDT 01/08/2025 5:32 AM CDT Killian Dumont MD LAB BLOOD ORDERABLES Final Result [facility] Department [place] [address] * (ABNORMAL) Basic metabolic panel (01/08/2025 5:04 AM CDT) [facility] Sodium 142 135 - 145 mmol/L Potassium, pl 4.0 3.3 - 4.9 mmol/L [facility] Chloride 110 97 - 110 mmol/L [facility] CO2 25 22 - 32 mmol/L [facility] Anion gap 7 2 - 15 mmol/L [facility] BUN 51(H) 6 - 25 mg/dL [facility] Creatinine 2.48(H) 0.60 - 1.10 mg/dL [facility] Glucose 146 70 - 199 mg/dL [facility] Comment: Interpretive Data Fasting glucose >/= 126 [...] 2022. Calcium 8.0(L) 8.5 - 10.3 mg/dL [facility] Blood 01/08/2025 5:04 AM CDT 01/08/2025 5:32 AM CDT Killian Dumont MD LAB BLOOD ORDERABLES Final Result Performing Organization Address City/[facility]/ZIP Co de Phone Number [place] [address] * POCT glucose (01/08/2025 3:14 AM CDT) [facility] Glucose, POC 147 70 - 199 mg/dL Blood 01/08/2025 3:14 AM CDT 01/08/2025 3:14 AM CDT Killian Dumont MD LAB POCT ORDERABLES - MATEUS CE Final Result Performing Organization Address [facility] Co [place] [address] * Transfuse RBC (01/08/2025 2:50 AM CDT) Blood Killian Dumont MD BLOOD TRANSFUSION ORDERABL ES Final Result Performing Organization Address [facility] [place] [address] * Prepare RBC: 1 Units (01/08/2025 12:29 AM CDT) [facility] Product code [id number] Unit Number [id number] [facility] Product Blood Type OPOS [facility] Dispense Status PRESUMED TRANSFUSED [facility] Blood 01/08/2025 12:2 9 AM CDT 01/08/2025 12:31 AM CDT Narrative [facility] - 01/09/2025 12:55 AM CDT Are special requirements needed? (All products are leukoreduced and CMV- safe)- >No Date required:-[id number] LRRBC # of Aopnd-4-Glnhr Reasons:-Cardiovascular disease, Hgb <8 g/dL} Killian Dumont MD BLOOD BANK PRODUCT ORDERAB LES Final Result Performing Organization Address [facility] Co [place] [address] * Prepare RBC: 1 Units (01/08/2025 12:16 AM CDT) Pathologist [facility] Product code [id number] Unit Number [id number] [facility] Product Blood Type OPOS [facility] Dispense Status PRESUMED TRANSFUSED [facility] Blood 01/08/2025 12:1 6 AM CDT 01/08/2025 12:16 AM CDT Narrative [facility] - 01/08/2025 4:00 PM CDT Are special requirements needed? (All products are leukoreduced and CMV- safe)- >No Date required:-[id number] LRRBC # of Lrdks-7-Gslrm Reasons:-Active bleeding, Hgb <8 g/dL} us Killian Dumont MD BLOOD BANK PRODUCT ORDERAB LES Final Result Performing Organization Address City/[facility]/ZIP Co de Phone Number [facility] [place] [address] * POCT glucose (01/07/2025 11:37 PM CDT) [facility] Glucose, POC 132 70 - 199 mg/dL Blood 01/07/2025 11:3 7 PM CDT 01/07/2025 11:37 PM CDT us Killian Dumont MD LAB POCT ORDERABLES - MATEUS CE Final Result Performing Organization Address City/[facility] Co [place] [address] * Critical Care (01/07/2025 10:50 PM CDT) [...] plan with the ICU team and other medical/b2b sales consultant staff, making frequent assessments and decisions [...] * (ABNORMAL) eGFR (01/07/2025 8:05 PM CDT) Pathologist [facility] eGFR 22(L) >=60 mL/min/1. 73 m2 Comment: [...] ORDERABL ES Final Result Performing Organization Address [facility] Co de Phone Number [facility] [place] [address] * (ABNORMAL) CBC without differential (01/07/2025 8:05 PM CDT) WBC 12.68(H) 3.80 - 9.90 K/cumm Hgb 7.2(L) 11.9 - 15.5 g/dL [facility] Hct 21.7(L) 35.6 - 45.5 % [facility] Plt 67(L) 150 - 400 K/cumm [facility] MPV 12.0 9.1 - 12.3 fL [facility] RBC 2.52(L) 3.90 - 5.20 M/cumm [facility] MCV 86.1 81.3 - 96.4 fL [facility] MCH 28.6 27.1 - 33.3 pg [facility] MCHC 33.2 32.3 - 35.7 g/dL [facility] RDW CV 19.0(H) 11.1 - 14.9 % [facility] RDW SD 59.1(H) 35.7 - 48.1 fL [facility] NRBC abs 0.02(H) 0.00 - 0.01 K/cumm [facility] Blood 01/07/2025 8:05 PM CDT 01/07/2025 8:35 PM CDT us Killian Dumont MD LAB BLOOD ORDERABLES Final Result Performing Organization Address City/[facility]/ZIP Co de Phone Number [facility] [address] * (ABNORMAL) Phosphorus (01/07/2025 8:05 PM CDT) Pathologist [facility] Phosphorus, pl 5.3(H) 2.3 - 4.5 mg/dL Blood 01/07/2025 8:05 PM CDT 01/07/2025 8:34 PM CDT Killian Dumont MD LAB BLOOD ORDERABLES Final Result Performing Organization Address City/[facility]/ZIP Co de Phone Number [facility] Department [place] [address] * (ABNORMAL) Magnesium (01/07/2025 8:05 PM CDT) [facility] Magnesium 2.8(H) 1.4 - 2.5 mg/dL Blood 01/07/2025 8:05 PM CDT 01/07/2025 8:34 PM CDT Killian Dumont MD LAB BLOOD ORDERABLES Final Result Performing Organization Address City/[facility] de Phone Number [facility] Department [place] [address] * (ABNORMAL) Comprehensive metabolic panel (01/07/2025 8:05 PM CDT) [facility] Sodium 145 135 - 145 mmol/L Potassium, pl 4.2 3.3 - 4.9 mmol/L [facility] Chloride 111(H) 97 - 110 mmol/L [facility] CO2 24 22 - 32 mmol/L [facility] Anion gap 10 2 - 15 mmol/L [facility] BUN 47(H) 6 - 25 mg/dL [facility] Creatinine 2.34(H) 0.60 - 1.10 mg/dL [facility] Glucose 142 70 - 199 mg/dL [facility] Comment: Interpretive Data Fasting glucose >/= 126 [...] 2022. Calcium 7.8(L) 8.5 - 10.3 mg/dL [facility] Bilirubin, total 0.2 0.1 - 1.2 mg/dL [facility] Protein, pl 4.9(L) 6.5 - 8.5 g/dL [facility] Albumin 3.0(L) 3.5 - 5.0 g/dL [facility] Alk phos 63 40 - 130 Units/L [facility] ALT 441(H) 7 - 45 Units/L [facility] AST 794(H) 10 - 45 Units/L [facility] Blood 01/07/2025 8:05 PM CDT 01/07/2025 8:34 PM CDT Killian Dumont MD LAB BLOOD ORDERABLES Final Result [facility] [place] [address] * POCT glucose (01/07/2025 7:20 PM CDT) Glucose, POC 141 70 - 199 mg/dL Blood 01/07/2025 7:20 PM CDT 01/07/2025 7:20 PM CDT Killian Dumont MD LAB POCT ORDERABLES - MATEUS CE Final Result [facility] [place] [address] * X-ray chest 1 view (01/07/2025 4:36 [...] ORDERABLES - MATEUS CE Final Result [facility] Department [place] [address] * (ABNORMAL) CBC without differential (01/07/2025 2:06 PM CDT) WBC 12.34(H) 3.80 - 9.90 K/cumm Hgb 7.7(L) 11.9 - 15.5 g/dL [facility] Hct 23.3(L) 35.6 - 45.5 % [facility] Plt 70(L) 150 - 400 K/cumm [facility] MPV 12.9(H) 9.1 - 12.3 fL [facility] RBC 2.74(L) 3.90 - 5.20 M/cumm [facility] MCV 85.0 81.3 - 96.4 fL [facility] MCH 28.1 27.1 - 33.3 pg [facility] MCHC 33.0 32.3 - 35.7 g/dL [facility] RDW CV 18.9(H) 11.1 - 14.9 % [facility] RDW SD 58.3(H) 35.7 - 48.1 fL [facility] NRBC abs 0.03(H) 0.00 - 0.01 K/cumm [facility] Blood 01/07/2025 2:06 PM CDT 01/07/2025 2:23 PM CDT us Haylee Barrera NP LAB BLOOD ORDERABL ES Final Result [facility] Department [place] [address] * POCT glucose (01/07/2025 11:51 AM CDT) [facility] Signature Glucose, POC 159 70 - 199 mg/dL Blood 01/07/2025 11:5 1 AM CDT 01/07/2025 11:51 AM CDT us Killian Dumont MD LAB POCT ORDERABLES - MATEUS CE Final Result Performing Organization Address [facility]/ZIP Co de Phone Number [facility] Department [place] [address] * Critical Care (01/07/2025 11:05 AM CDT) [...] plan with the patient's team and other medical/b2b sales consultant staff. This time was in addition [...] * POCT glucose (01/07/2025 8:25 AM CDT) Pathologist [facility] Glucose, POC 181 70 - 199 mg/dL Comment:Glu2: RN/MD Notified Glucose comment 1 Glu2: RN/MD Notified [facility] Blood 01/07/2025 8:25 AM CDT 01/07/2025 8:25 AM CDT Killian Dumont MD LAB POCT ORDERABLES - MATEUS CE Final Result [facility] Department [place] [address] * (ABNORMAL) eGFR (01/07/2025 4:05 AM CDT) Pathologist [facility] eGFR 29(L) >=60 mL/min/1. 73 m2 Comment: [...] Dumont MD LAB BLOOD ORDERABLES Final Result [facility] [place] [address] * (ABNORMAL) CBC without differential (01/07/2025 4:05 AM CDT) WBC 15.36(H) 3.80 - 9.90 K/cumm Hgb 9.2(L) 11.9 - 15.5 g/dL [facility] Hct 27.5(L) 35.6 - 45.5 % [facility] Plt 76(L) 150 - 400 K/cumm [facility] MPV 10.9 9.1 - 12.3 fL [facility] RBC 3.21(L) 3.90 - 5.20 M/cumm [facility] MCV 85.7 81.3 - 96.4 fL [facility] MCH 28.7 27.1 - 33.3 pg [facility] MCHC 33.5 32.3 - 35.7 g/dL [facility] RDW CV 18.6(H) 11.1 - 14.9 % [facility] RDW SD 57.8(H) 35.7 - 48.1 fL [facility] NRBC abs 0.02(H) 0.00 - 0.01 K/cumm [facility] Blood 01/07/2025 4:05 AM CDT 01/07/2025 4:12 AM CDT Killian Dumont MD LAB BLOOD ORDERABLES Final Result Performing Organization Address City/[facility] Co de Phone Number [facility] [address] * (ABNORMAL) Phosphorus (01/07/2025 4:05 AM CDT) Phosphorus, pl 7.0(H) 2.3 - 4.5 mg/dL Blood 01/07/2025 4:05 AM CDT 01/07/2025 4:18 AM CDT Killian Dumont MD LAB BLOOD ORDERABLES Final Result Performing Organization Address [facility] [place] [address] * (ABNORMAL) Magnesium (01/07/2025 4:05 AM CDT) Magnesium 2.7(H) 1.4 - 2.5 mg/dL Blood 01/07/2025 4:05 AM CDT 01/07/2025 4:18 AM CDT Killian Dumont MD LAB BLOOD ORDERABLES Final Result Performing Organization Address [facility] [place] [address] * (ABNORMAL) Hepatic function panel (01/07/2025 4:05 AM CDT) Bilirubin, total 0.6 0.1 - 1.2 mg/dL Bilirubin, direct 0.2 0.1 - 0.3 mg/dL [facility] Comment:Reviewed Protein, pl 5.5(L) 6.5 - 8.5 g/dL [facility] Albumin 3.5 3.5 - 5.0 g/dL [facility] Alk phos 64 40 - 130 Units/L [facility] ALT 690(H) 7 - 45 Units/L [facility] AST 926(H) 10 - 45 Units/L [facility] Blood 01/07/2025 4:05 AM CDT 01/07/2025 4:18 AM CDT us Killian Dumont MD LAB BLOOD ORDERABLES Final Result [facility] [place] [address] * (ABNORMAL) Basic metabolic panel (01/07/2025 4:05 AM CDT) Sodium 144 135 - 145 mmol/L Potassium, pl 4.7 3.3 - 4.9 mmol/L [facility] Chloride 113(H) 97 - 110 mmol/L [facility] CO2 23 22 - 32 mmol/L [facility] Anion gap 8 2 - 15 mmol/L [facility] BUN 41(H) 6 - 25 mg/dL [facility] Creatinine 1.84(H) 0.60 - 1.10 mg/dL [facility] Glucose 202(H) 70 - 199 mg/dL [facility] Comment: Interpretive Data Fasting glucose >/= 126 [...] 2022. Calcium 8.2(L) 8.5 - 10.3 mg/dL [facility] Blood 01/07/2025 4:05 AM CDT 01/07/2025 4:18 AM CDT Killian Dumont MD LAB BLOOD ORDERABLES Final Result Performing Organization Address [facility] Co de Phone Number [facility] [place] [address] * POCT glucose (01/07/2025 3:09 AM CDT) Glucose, POC 185 70 - 199 mg/dL Blood 01/07/2025 3:09 AM CDT 01/07/2025 3:09 AM CDT Killian Dumont MD LAB POCT ORDERABLES - MATEUS CE Final Result Performing Organization Address [facility] de Phone Number [facility] [address] * Transfuse platelets (01/07/2025 2:12 AM CDT) Blood Result [facility] Killian Dumont MD BLOOD TRANSFUSION ORDERABL ES Final Result Performing Organization Address [facility] de Phone Number [facility] [place] [address] * POCT glucose (01/06/2025 11:28 PM CDT) Glucose, POC 171 70 - 199 mg/dL Blood 01/06/2025 11:2 8 PM CDT 01/06/2025 11:28 PM CDT Killian Dumont MD LAB POCT ORDERABLES - MATEUS CE Final Result Performing Organization Address [facility] Co de Phone Number [facility] [place] [address] * Prepare platelets: 1 Units (01/06/2025 11:15 PM CDT) Product code [id number] Unit Number [id number] [facility] Product Blood Type OPOS [facility] Dispense Status PRESUMED TRANSFUSED [facility] Blood Venous blood specimen / Unknown 01/06/2025 11:15 PM CDT 01/06/2025 11:14 PM CDT Narrative [facility] - 01/07/2025 4:01 PM CDT Are special requirements needed? (all products are leukoreduced)->No Date required:-[id number] PLT # of Units:-1-Units Reasons:-Mild bleeding, plt < 50 K/cumm} us Killian Dumont MD BLOOD BANK PRODUCT ORDERAB LES Final Result [facility] [place] [address] * XR Chest 1 View (01/06/2025 11:12 [...] it. Electronically signed by: Soy Mcdowell M.D. Killian Dumont MD IMG XR PROCEDURES Final Re sult * (ABNORMAL) POC Blood Gas and Chemistries, Arterial - (01/06/2025 9:44 PM CDT) pH, Art POC 7.25(L) 7.35 - 7.45 pCO2, Art POC 45 35 - 45 mmHg [facility] pO2, Art POC 108 83 - 108 mmHg [facility] Na, POC 144 135 - 145 mmol/L [facility] K POC 4.6 3.3 - 4.9 mmol/L [facility] Comment: Interpretive Data Not all point of care methods assess for hemolysis. Confirm with instrument and retest K+ if not consistent with clinical signs and symptoms. Current Interpretive Data was last revised on 2023. Cl, POC 112(H) 97 - 110 mmol/L [facility] Ionized Ca, POC 4.87 4.50 - 5.10 mg/dL [facility] Glucose, POC 196 70 - 199 mg/dL [facility] Lactate POC 4.0(C) 0.7 - 2.0 mmol/L [facility] SO2 (eber) arterial 100(H) 90 - 95 % [facility] Base excess, POC -7.3 mmol/L [facility] HCO3, Art POC 20 20 - 30 mmol/L [facility] Hct, POC 31.0(L) 36.3 - 45.3 % [facility] Total Hb, POC 10.4(L) 11.9 - 15.5 g/dL [facility] Blood 01/06/2025 9:44 PM CDT 01/06/2025 9:44 PM CDT Killian Dumont MD LAB POCT ORDERABLES - MATEUS CE Final Result Performing Organization Address City/[facility]/ZIP Co de Phone Number [facility] [place] [address] * Immature platelet fraction (01/06/2025 9:38 PM CDT) Pathologist [facility] IPF 4.0 1.6 - 10.1 % Blood 01/06/2025 9:38 PM CDT 01/06/2025 10:06 PM CDT Killian Dumont MD LAB BLOOD ORDERABLES Final Result Performing Organization Address [facility] Co de Phone Number [facility] [place] [address] * (ABNORMAL) eGFR (01/06/2025 9:38 PM CDT) [facility] eGFR 35(L) >=60 mL/min/1. 73 m2 Comment: [...] BLOOD ORDERABLES Final Result Performing Organization Address City/State/[facility] de Phone Number [facility] [address] * aPTT (01/06/2025 9:38 PM CDT) aPTT [...] ORDERABLES Final Result Performing Organization Address [facility] [place] [address] * (ABNORMAL) Protime-INR (01/06/2025 9:38 PM CDT) PT 14.6(H) 10.2 - 13.5 sec INR 1.30(H) 0.90 - 1.20 [facility] Comment: Interpretive data Oral anticoagulant therapeutic ranges: Venous thromboembolism prophylaxis or treatment: 2.0-3.0 CARDIOLOGY Standard range: 2.0-3.0 High-intensity range: 2.5-3.5 Refer to indication-specific guidelines for appropriate target ranges for prosthetic heart valve replacement. Current interpretive data was last revised on 2019. Blood 01/06/2025 9:38 PM CDT 01/06/2025 10:01 PM CDT Killian Dumont MD LAB BLOOD ORDERABLES Final Result Performing Organization Address [facility] de Phone Number [facility] [place] [address] * (ABNORMAL) CBC without differential (01/06/2025 9:38 PM CDT) [facility] WBC 14.68(H) 3.80 - 9.90 K/cumm Hgb 10.0(L) 11.9 - 15.5 g/dL [facility] Hct 30.3(L) 35.6 - 45.5 % [facility] Plt 44(C) 150 - 400 K/cumm [facility] Comment:Platelet count confi rmed by additional testing. Critical platelet count threshold determined by patient location: Outpatient:<50 K/cumm , Inpatient adults:<20 K/cumm , Inpatient pediatric:<25 K/cumm, BMT service:<10 K/cumm MPV 9.5 9.1 - 12.3 fL [facility] RBC 3.46(L) 3.90 - 5.20 M/cumm [facility] MCV 87.6 81.3 - 96.4 fL [facility] MCH 28.9 27.1 - 33.3 pg [facility] MCHC 33.0 32.3 - 35.7 g/dL [facility] RDW CV 18.3(H) 11.1 - 14.9 % [facility] RDW SD 58.6(H) 35.7 - 48.1 fL [facility] NRBC abs 0.02(H) 0.00 - 0.01 K/cumm [facility] Blood 01/06/2025 9:38 PM CDT 01/06/2025 9:55 PM CDT Killian Dumont MD LAB BLOOD ORDERABLES Final Result [facility] Department [place] [address] * (ABNORMAL) Phosphorus (01/06/2025 9:38 PM CDT) [facility] Phosphorus, pl 5.8(H) 2.3 - 4.5 mg/dL Blood 01/06/2025 9:38 PM CDT 01/06/2025 9:55 PM CDT Killian Dumont MD LAB BLOOD ORDERABLES Final Result Performing Organization Address City/[facility]/ZIP Co de Phone Number [facility] [address] * Magnesium (01/06/2025 9:38 PM CDT) [facility] Magnesium 1.6 1.4 - 2.5 mg/dL Blood 01/06/2025 9:38 PM CDT 01/06/2025 9:55 PM CDT Killian Dumont MD LAB BLOOD ORDERABLES Final Result Performing Organization Address [facility] Co de Phone Number [facility] [place] [address] * (ABNORMAL) Hepatic function panel (01/06/2025 9:38 PM CDT) [facility] Bilirubin, total 0.5 0.1 - 1.2 mg/dL Bilirubin, direct <0.2 0.1 - 0.3 mg/dL [facility] Protein, pl 5.4(L) 6.5 - 8.5 g/dL [facility] Albumin 3.7 3.5 - 5.0 g/dL [facility] Alk phos 52 40 - 130 Units/L [facility] ALT 389(H) 7 - 45 Units/L [facility] Comment:Repeated and Verifie d AST 463(H) 10 - 45 Units/L [facility] Comment:Repeated and Verifie d Blood 01/06/2025 9:38 PM CDT 01/06/2025 9:55 PM CDT Killian Dumont MD LAB BLOOD ORDERABLES Final Result Performing Organization Address City/[facility] Co de Phone Number [facility] [address] * (ABNORMAL) Lipid panel (01/06/2025 9:38 PM [...] revised on 2017. Triglycerides 141 <=149 mg/dL [facility] Comment: Interpretive Data Ages < or = [...] revised on 2017. HDL 28(L) >=40 mg/dL [facility] Comment: Interpretive Data Ages < or = [...] on 2017. LDL, calculated 85 <=129 mg/dL [facility] Comment: Interpretive Data Ages < or = [...] NCEP Expert Panel. Circulation 2004;110:227 3. Daniel Donaldson et al. MARZENA Cardiol. 2020 September 02;5(5):540-548. doi: 10.1001/[email or web address].2020.0013 Current Interpretive Data was last revised on 2023. Non-HDL Cholesterol 110 mg/dL [facility] Comment: Interpretive Data Ages < or = [...] last revised on 2017. Chol/HDL ratio 5 [facility] Blood 01/06/2025 9:38 PM CDT 01/06/2025 9:55 PM CDT us Killian Dumont MD LAB BLOOD ORDERABLES Final Result [facility] Department of Laboratories [place], [place] [id number] * (ABNORMAL) Basic metabolic panel (01/06/2025 9:38 PM CDT) Sodium 145 135 - 145 mmol/L Potassium, pl 4.5 3.3 - 4.9 mmol/L [facility] Chloride 113(H) 97 - 110 mmol/L [facility] CO2 22 22 - 32 mmol/L [facility] Anion gap 10 2 - 15 mmol/L [facility] BUN 37(H) 6 - 25 mg/dL [facility] Creatinine 1.58(H) 0.60 - 1.10 mg/dL [facility] Glucose 190 70 - 199 mg/dL [facility] Comment: Interpretive Data Fasting glucose >/= 126 [...] 2022. Calcium 8.5 8.5 - 10.3 mg/dL [facility] Blood 01/06/2025 9:38 PM CDT 01/06/2025 9:55 PM CDT Killian Dumont MD LAB BLOOD ORDERABLES Final Result Performing Organization Address City/[facility]/ZIP Co de Phone Number [facility] [place] [address] * POCT glucose (01/06/2025 9:34 PM CDT) [facility] Signature Glucose, POC 187 70 - 199 mg/dL Blood 01/06/2025 9:34 PM CDT 01/06/2025 9:34 PM CDT Killian Dumont MD LAB POCT ORDERABLES - MATEUS CE Final Result [facility] [place] [address] * Transfuse plasma (01/06/2025 7:49 PM CDT) Blood us Bobby Meza MD BLOOD TRANSFUSION ORDERABLES Final Result [facility] [place] [address] * Transfuse RBC (01/06/2025 7:27 PM CDT) Blood Bobby Meza MD BLOOD TRANSFUSION ORDERABLES Final Result Performing Organization Address City/State/[facility] Co de Phone Number [facility] [place] [address] * (ABNORMAL) POC Blood Gas and Chemistries, Arterial - (01/06/2025 7:02 PM CDT) pH, Art POC 7.30(L) 7.35 - 7.45 pCO2, Art POC 35 35 - 45 mmHg [facility] pO2, Art POC 115(H) 83 - 108 mmHg [facility] Na, POC 143 135 - 145 mmol/L [facility] K POC 4.4 3.3 - 4.9 mmol/L [facility] Comment: Interpretive Data Not all point of care methods assess for hemolysis. Confirm with instrument and retest K+ if not consistent with clinical signs and symptoms. Current Interpretive Data was last revised on 2023. Cl, POC 116(H) 97 - 110 mmol/L [facility] Ionized Ca, POC 4.84 4.50 - 5.10 mg/dL [facility] Glucose, POC 195 70 - 199 mg/dL [facility] Lactate POC 4.8(C) 0.7 - 2.0 mmol/L [facility] SO2 (eber) arterial 99(H) 90 - 95 % [facility] Base excess, POC -8.4 mmol/L [facility] Hct, POC 28.0(L) 36.3 - 45.3 % [facility] Total Hb, POC 9.4(L) 11.9 - 15.5 g/dL [facility] Blood 01/06/2025 7:02 PM CDT 01/06/2025 7:02 PM CDT us Killian Dumont MD LAB POCT ORDERABLES - MATEUS CE Final Result [facility] [place] [address] * XR Spine Lumbar 2 or 3 [...] TRANSFUSION ORDERABLES Final Result Performing Organization Address City/[facility]/ZIP Co de Phone Number [facility] [place] [address] * (ABNORMAL) POC Blood Gas and Chemistries, Arterial - (01/06/2025 5:31 PM CDT) pH, Art POC 7.33(L) 7.35 - 7.45 pCO2, Art POC 33(L) 35 - 45 mmHg [facility] pO2, Art POC 144(H) 83 - 108 mmHg [facility] Na, POC 143 135 - 145 mmol/L [facility] K POC 4.4 3.3 - 4.9 mmol/L [facility] Comment: Interpretive Data Not all point of care methods assess for hemolysis. Confirm with instrument and retest K+ if not consistent with clinical signs and symptoms. Current Interpretive Data was last revised on 2023. Cl, POC 113(H) 97 - 110 mmol/L [facility] Ionized Ca, POC 5.55(H) 4.50 - 5.10 mg/dL [facility] Glucose, POC 227(H) 70 - 199 mg/dL [facility] Lactate POC 5.0(C) 0.7 - 2.0 mmol/L [facility] SO2 (eber) arterial 99(H) 90 - 95 % [facility] Base excess, POC -7.7 mmol/L [facility] Hct, POC 29.0(L) 36.3 - 45.3 % [facility] Total Hb, POC 9.8(L) 11.9 - 15.5 g/dL [facility] Blood 01/06/2025 5:31 PM CDT 01/06/2025 5:31 PM CDT Killian Dumont MD LAB POCT ORDERABLES - MATEUS CE Final Result Performing Organization Address City/[facility]/ZIP Co de Phone Number [facility] Department [place] [address] * XR Spine Lumbar 2 or 3 [...] Electronically signed by: Justyn Rodriguez MD, PHD Killian Dumont MD IMG XR PROCEDURES Final Re sult * Prepare plasma: 2 Units (01/06/2025 4:54 PM CDT) Product code [id number] Unit Number [id number] [facility] Product Blood Type ANEG [facility] Dispense Status PRESUMED TRANSFUSED [facility] Blood Venous blood specimen / Unknown 01/06/2025 4:54 PM CDT 01/06/2025 4:54 PM CDT Narrative [facility] - 01/07/2025 8:00 AM CDT Other indication->surgery Date required:-[id number] FFP # of Units:-2-Units Reasons:-Other (Specify)} Bobby Meza MD BLOOD BANK PRODUCT ORDERABLES Final Result Performing Organization Address City/State/[facility] Co de Phone Number [facility] Department [place] [address] * Transfuse RBC (01/06/2025 4:51 PM CDT) Blood Bobby Meza MD BLOOD TRANSFUSION ORDERABLES Final Result Performing Organization Address [facility] Co de Phone Number [facility] Department [place] [address] * (ABNORMAL) POC Blood Gas and Chemistries, Arterial - (01/06/2025 4:26 PM CDT) pH, Art POC 7.34(L) 7.35 - 7.45 pCO2, Art POC 37 35 - 45 mmHg [facility] pO2, Art POC 146(H) 83 - 108 mmHg [facility] Na, POC 142 135 - 145 mmol/L [facility] K POC 4.7 3.3 - 4.9 mmol/L [facility] Comment: Interpretive Data Not all point of care methods assess for hemolysis. Confirm with instrument and retest K+ if not consistent with clinical signs and symptoms. Current Interpretive Data was last revised on 2023. Cl, POC 111(H) 97 - 110 mmol/L [facility] Ionized Ca, POC 4.15(L) 4.50 - 5.10 mg/dL [facility] Glucose, POC 267(H) 70 - 199 mg/dL [facility] Lactate POC 5.0(C) 0.7 - 2.0 mmol/L [facility] SO2 (eber) arterial 100(H) 90 - 95 % [facility] Base excess, POC -5.3 mmol/L [facility] Hct, POC 30.0(L) 36.3 - 45.3 % [facility] Total Hb, POC 9.9(L) 11.9 - 15.5 g/dL [facility] Blood 01/06/2025 4:26 PM CDT 01/06/2025 4:26 PM CDT us Killian Dumont MD LAB POCT ORDERABLES - MATEUS CE Final Result Performing Organization Address [facility] Co de Phone Number [facility] [place] [address] * Transfuse plasma (01/06/2025 4:06 PM CDT) Blood Bobby Meza MD BLOOD TRANSFUSION ORDERABLES Final Result Performing Organization Address [facility] Co de Phone Number [facility] [place] [address] * Transfuse RBC (01/06/2025 4:04 PM CDT) Blood Bobby Meza MD BLOOD TRANSFUSION ORDERABLES Edited Result - Final Performing Organization Address [facility] Co de Phone Number [facility] [place] [address] * Transfuse plasma (01/06/2025 3:20 PM CDT) Blood us Bobby Meza MD BLOOD TRANSFUSION ORDERABLES Final Result Performing Organization Address [facility] Co de Phone Number [facility] [place] [address] * Transfuse RBC (01/06/2025 3:15 PM CDT) Blood Bobby Meza MD BLOOD TRANSFUSION ORDERABLES Edited Result - Final [facility] [place] [address] * (ABNORMAL) POC Blood Gas and Chemistries, Arterial - (01/06/2025 2:33 PM CDT) pH, Art POC 7.32(L) 7.35 - 7.45 pCO2, Art POC 36 35 - 45 mmHg [facility] pO2, Art POC 156(H) 83 - 108 mmHg [facility] Na, POC 141 135 - 145 mmol/L [facility] K POC 4.5 3.3 - 4.9 mmol/L [facility] Comment: Interpretive Data Not all point of care methods assess for hemolysis. Confirm with instrument and retest K+ if not consistent with clinical signs and symptoms. Current Interpretive Data was last revised on 2023. Cl, POC 112(H) 97 - 110 mmol/L [facility] Ionized Ca, POC 5.01 4.50 - 5.10 mg/dL [facility] Glucose, POC 235(H) 70 - 199 mg/dL [facility] Lactate POC 4.4(C) 0.7 - 2.0 mmol/L [facility] SO2 (eber) arterial 99(H) 90 - 95 % [facility] Base excess, POC -6.9 mmol/L [facility] Hct, POC 28.0(L) 36.3 - 45.3 % [facility] Total Hb, POC 9.4(L) 11.9 - 15.5 g/dL [facility] Blood 01/06/2025 2:33 PM CDT 01/06/2025 2:33 PM CDT us Killian Dumont MD LAB POCT ORDERABLES - MATEUS CE Final Result [facility] [place] [address] * FL Fluoroscopy < 1 Hour (01/06/2025 2:23 PM CDT) Narrative [email or web address] - 01/06/2025 2:23 PM CDT The images from this study are not interpreted by Radiology. Please refer to the physician's procedure / OR operative note. Killian Dumont MD IMG FLUOROSCOPY PROCEDURES Final Result Performing Organization Address City/[facility]/ZIP Co de Phone Number [email or web address] * (ABNORMAL) POC Blood Gas and Chemistries, Arterial - (01/06/2025 12:31 PM CDT) pH, Art POC 7.28(L) 7.35 - 7.45 pCO2, Art POC 34(L) 35 - 45 mmHg [facility] pO2, Art POC 156(H) 83 - 108 mmHg [facility] Na, POC 141 135 - 145 mmol/L [facility] K POC 4.1 3.3 - 4.9 mmol/L [facility] Comment: Interpretive Data Not all point of care methods assess for hemolysis. Confirm with instrument and retest K+ if not consistent with clinical signs and symptoms. Current Interpretive Data was last revised on 2023. Cl, POC 114(H) 97 - 110 mmol/L [facility] Ionized Ca, POC 4.61 4.50 - 5.10 mg/dL [facility] Glucose, POC 250(H) 70 - 199 mg/dL [facility] Lactate POC 2.8(H) 0.7 - 2.0 mmol/L [facility] SO2 (eber) arterial 99(H) 90 - 95 % [facility] Base excess, POC -9.8 mmol/L [facility] Hct, POC 30.0(L) 36.3 - 45.3 % [facility] Total Hb, POC 10.1(L) 11.9 - 15.5 g/dL [facility] Blood 01/06/2025 12:3 1 PM CDT 01/06/2025 12:31 PM CDT Killian Dumont MD LAB POCT ORDERABLES - MATEUS CE Final Result [facility] [place] [address] * XR Spine Lumbar 1 View (01/06/2025 [...] L2 Electronically signed by: Jan Mathew MD Killian Dumont MD IMG XR PROCEDURES Final Re sult * OR AN PROCEDURE PLACEHOLDER (01/06/2025 10:49 AM CDT) Narrative Ruben Ramírez, RIC - 01/06/2025 10:49 AM CDT Ruben Ramírez, RN 01/06/2025 10:49 AM Peripheral IV Catheter [...] MD ANESTHESIA ORDERAB LES Final Result * OR AN PROCEDURE PLACEHOLDER (01/06/2025 10:48 AM CDT) [...] MD ANESTHESIA ORDERAB LES Final Result * OR AN PROCEDURE PLACEHOLDER (01/06/2025 10:47 AM CDT) [...] Units (01/06/2025 9:56 AM CDT) Product code [id number] Unit Number [id number] [facility] Product Blood Type OPOS [facility] Dispense Status PRESUMED TRANSFUSED [facility] Product code [id number] [facility] Unit Number [id number] * [facility] Product Blood Type OPOS [facility] Dispense Status PRESUMED TRANSFUSED [facility] Blood Venous blood specimen / Unknown 01/06/2025 9:56 AM CDT 01/06/2025 9:57 AM CDT Narrative [facility] - 01/07/2025 12:56 AM CDT Date required:-[id number] FFP # of Units:-2-Units Reasons:-High risk of life threatening bleeding, INR Bobby Susana DIOR BLOOD BANK PRODUCT ORDERABLES Final Result [facility] [place] [address] * Prepare RBC: 4 Units (01/06/2025 9:56 AM CDT) Product code [id number] [facility] Unit Number [id number] D [facility] Product Blood Type OPOS [facility] Dispense Status PRESUMED TRANSFUSED [facility] Product code [id number] [facility] Unit Number [id number] L [facility] Product Blood Type OPOS [facility] Dispense Status PRESUMED TRANSFUSED [facility] Product code [id number] Unit Number [id number]- V [facility] Product Blood Type OPOS [facility] Dispense Status PRESUMED TRANSFUSED [facility] Product code [id number] [facility] Unit Number [id number]- V [facility] Product Blood Type OPOS [facility] Dispense Status PRESUMED TRANSFUSED [facility] Blood 01/06/2025 9:56 AM CDT 01/06/2025 9:57 AM CDT Narrative [facility] - 01/07/2025 12:56 AM CDT Are special requirements needed? (All products are leukoreduced and CMV- safe)- >No Date required:-[id number] LRRBC # of Infur-4-Fegmu Reasons:-Intra-op transfusion} us Bobby Meza MD BLOOD BANK PRODUCT ORDERABLES Final Result [facility] [place] [address] * OR AN ELECTIVE ENDOTRACHEAL AIRWAY, OR AN PROCEDURE PLACEHOLDER (01/06/2025 9:47 AM CDT) Narrative Ruben Ramírez RN - 01/06/2025 9:47 AM CDT Ruben Ramírez, RIC 01/06/2025 9:48 AM Airway Patient location: OR Urgency: elective Indications for airway management: anesthesia Difficult airway: no Staff: Supervising provider: Bobby Meza MD Placed by: Other staff: Ruben Ramírez, RIC Emergent airway documentation: Risks and benefits discussed: [...] comments: Atraumatic intubation. Dentition as in preop. us Bobby Meza MD ANESTHESIA ORDERAB LES Final Result * (ABNORMAL) POC Blood Gas and Chemistries, Arterial - (01/06/2025 9:39 AM CDT) pH, Art POC 7.25(L) 7.35 - 7.45 pCO2, Art POC 49(H) 35 - 45 mmHg [facility] pO2, Art POC 123(H) 83 - 108 mmHg [facility] Na, POC 140 135 - 145 mmol/L [facility] K POC 4.0 3.3 - 4.9 mmol/L [facility] Comment: Interpretive Data Not all point of care methods assess for hemolysis. Confirm with instrument and retest K+ if not consistent with clinical signs and symptoms. Current Interpretive Data was last revised on 2023. Cl, POC 111(H) 97 - 110 mmol/L [facility] Ionized Ca, POC 4.58 4.50 - 5.10 mg/dL [facility] Glucose, POC 181 70 - 199 mg/dL [facility] Lactate POC 2.3(H) 0.7 - 2.0 mmol/L [facility] SO2 (eber) arterial 100(H) 90 - 95 % [facility] Base excess, POC -5.9 mmol/L [facility] Hct, POC 39.0 36.3 - 45.3 % [facility] Total Hb, POC 13.1 11.9 - 15.5 g/dL [facility] Blood 01/06/2025 9:39 AM CDT 01/06/2025 9:39 AM CDT us Killian Dumont MD LAB POCT ORDERABLES - MATEUS CE Final Result [facility] [place], [place] [id number] * Type and screen (01/06/2025 6:50 AM CDT) Maribell, indirect Negative ABO Rh O Positive [facility] Blood 01/06/2025 6:50 AM CDT 01/06/2025 7:07 AM CDT Narrative [facility] - 01/06/2025 8:03 AM CDT Has the patient had Daratumumab or Isatuximab in the past 6 months?->Unknown Gonzalo Hsu NP LAB BLOOD BANK TEST ORDE RABLES Final Result Performing Organization Address [facility] [place] [address] * Prepare RBC: 2 Units (01/06/2025 6:17 AM CDT) Product code [id number] Unit Number [id number] [facility] Product Blood Type OPOS [facility] Dispense Status PRESUMED TRANSFUSED [facility] Blood 01/06/2025 6:17 AM CDT 01/06/2025 6:17 AM CDT Narrative [facility] - 01/07/2025 8:00 AM CDT Specify Procedure:->[id number] Are special requirements needed? (All products are leukoreduced and CMV- safe)- >No Date required:-[id number] LRRBC # of Icqps-0-Stucc Reasons:-Hold for procedure (specify procedure)} Gonzalo Hsu NP BLOOD BANK PRODUCT ORDER BRINDA Final Result Performing Organization Address [facility] [place] [address] * IR Central Line Placement > 5 [...] was obtained. Prior to beginning the procedure, Randolph Protocol was used to confirm the patient's [...] was obtained. Prior to beginning the procedure, Randolph Protocol was used to confirm the patient's [...] IMG IR PROCEDURES Final Re sult * Dexa TBS Axial Skeleton Bone Density 1 or more sites (08/27/2024 2:37 PM CDT) Anatomical Region Laterality Modality Wrist, Body N/A Radiographic Joseline ging Narrative 08/27/2024 4:58 PM CDT Patient Name: Evelyn Gil Date of : 1955 Date of scan: 08/27/2024 Bone mineral density was performed on a [employer] Discovery Densitometer. Based on machine cross-calibration and [...] density scan were prepared by Taya Del Toro(R) CBDT who is accredited by the International Society of Clinical Densitometry. The overall patient assessment and scan interpretation were performed by Rocío Elkins M.D. who is certified by the International Society of Clinical Densitometry. [id number] us Killina Dumont MD [facility] [place] PROCED[place] Final R esult * Screening [...] compared to prior imaging studies performed at [facility] on 01/11/2021, 02/22/2022 and 07/15/2023. The [...] compared to prior imaging studies performed at [facility] on 01/11/2021, 02/22/2022 and 07/15/2023. The [...] CDT PROCEDURE REPORT Patient: EVELYN GIL Account: [id number] Room No: : 1955 Patient Type: SDS [...] 02/04/2013 10:22:42 AM Historical Provider ENDOSCOPY PROCEDURES Rneee l Result from Last 3 Months or Most Recently Relevant to Health Maintenance [facility] Address: [address] [address] [place] [address] [facility] MED[facility] [employer] Address[facility] [address] [address] [place] [address] [facility] MED[facility] Address: [address] [address] [place] [address] [employer] MEDICARE [facility] Address: [address] [address] [place] [address] Advance Directives For more information, please contact: [phone] * Full Code (Latest Code Status on File) Date Activated Date Inactivated Comments 01/09/2025 5:43 PM 01/14/2025 10:35 PM * Full Code Date Activated Date Inactivated Comments 01/06/2025 9:38 PM 01/09/2025 5:43 PM * Full Code Date Activated Date Inactivated Comments 01/05/2025 7:51 AM 01/06/2025 5:13 AM * Full Code Date Activated Date Inactivated Comments 10/08/2022 2:07 PM 10/11/2022 8:50 PM Care Teams [employer] Relationship Specialty Start Date End Date Carlos Ramesh MD PCP - General Internal Medicine 12/29/20 Shahnaz Simpson NP Nurse Practitioner Nurse Practitioner 03/01/21
--- OUTSIDE RECORDS SUMMARY | 2025-04-01 12:31 | XMS_ITS | Patient Health Record ---
Author Organization [facility] Address [address] [place], [place] [address] Care Team Providers Care Administrative Services Director Name Role Phone Carlos Ramseh Unavailable Unavailable Allergies No Known Allergies Reason For Referral No Information Plan Of Treatment No Information Insurance Providers Payer Name Payer Address Payer Phone Subscriber Number Group Number Insured Name Patient Relationship to Insured Coverage Start Date Coverage End Date [facility] [address] [address] [place] [address] [id number] Evelyn Gil Self - patient is the insured
[2025-04-01 12:39] LABS: Hematocrit 35.1 % (35.0-42.0); Hemoglobin 10.8 g/dL (11.7-13.8); Mean Corpuscular HGB Conc 30.8 g/dL (32-36); Mean Corpuscular Hemoglobin 29.9 pg (27.0-31.0); Mean Corpuscular Volume 97.2 fL (78.0-102.0); Platelet Count Result 257 K/mm3 (150-420); Red Blood Count 3.61 M/mm3 (4.20-5.40); White Blood Count 4.7 K/mm3 (4.8-10.8)
[2025-04-01 12:55] LABS: Alanine Aminotransferase 16 U/L (6-35); Albumin Level 4.2 g/dL (3.5-5.1); Alkaline Phosphatase 103 U/L (38-126); Anion Gap 10 mmol/L (4-12); Aspartate Amino Transferase 22 U/L (14-36); Bilirubin,Total 0.3 mg/dL (0.2-1.3); Blood Urea Nitrogen 21 mg/dL (7-17); Calcium 9.0 mg/dL (8.4-10.2); Carbon Dioxide 25 mmol/L (22-30); Chloride 106 mmol/L (98-107); Estimated Glomerular Filt Rate 32; Glucose 109 mg/dL (65-110); Magnesium 2.4 mg/dL (1.6-2.3); Osmolality Calculated 296 mOsm/kg (285-295); Potassium 4.0 mmol/L (3.4-5.0); Sodium 141 mmol/L (137-145); Total Protein 6.8 g/dL (6.3-8.2)
== END 2025-04-01 12:28 | disposition home or self-care (01) ==
LOC: CHSHH 12:28
PROVIDERS: PCP Internal Medicine; Visit Provider Internal Medicine
DX: E87.6 Hypokalemia (principal)
CPT/HCPCS: 36415; 80053; 83735; 85027